=== PATIENT | female | born 1960 | race Caucasian/White ===

== ENCOUNTER 2020-08-21 06:56 | Outpatient (REF) | payer OTHER, SELFPAY ==
[2020-08-21 08:15] LABS: MANUAL DIFF FLAG NO
[2020-08-21 08:16] LABS: Basophils Percent Auto 0.6 % (0-2); Hemoglobin 12.8 g/dl (12.0-16.0); Imm Gran Abs Auto 0.01 X10*3/uL (0.00-0.03); Imm Gran Pct Auto 0.2 % (0.0-0.4); Lymphocytes Absolute Auto 2.3 X10*3/uL (1.2-4.9); Lymphocytes Percent Auto 44.9 % (20-40); Mean Corpuscular HGB Conc 31.2 g/dl (31.0-35.0); Mean Corpuscular Hemoglobin 26.2 pg (27.0-33.0); Mean Corpuscular Volume 83.8 fL (80-98); Mean Platelet Volume 10.9 fL (9.4-12.3); Monocytes Absolute Auto 0.3 X10*3/uL (0.1-1.2); Monocytes Percent Auto 5.7 % (2-11); Neutrophils Absolute Auto 2.5 X10*3/uL (2.0-8.3); Neutrophils Percent Auto 48.6 % (45-73); Platelet Count 329 X10*3/uL (160-400); Red Blood Count 4.89 X10*6/uL (4.20-5.50); Red Cell Distribution Width 15.2 % (11.0-16.0); White Blood Count 5.1 X10*3/uL (4.8-10.8)
[2020-08-21 09:04] LABS: Free T4 (Free Thyroxine) 1.22 ng/dL (0.71-1.85); Thyroid Stimulating Hormone 1.82 uIU/mL (0.32-4.0)
[2020-08-25 02:48] LABS: Thyroid Peroxidase Antibodies 5 IU/mL (<9)
== END 2020-08-21 06:57 | disposition home or self-care (01) ==
LOC: HO.LAB 06:56
PROVIDERS: PCP Internal Medicine; Visit Provider Internal Medicine
DX: E03.9 Hypothyroidism, unspecified (principal); G25.81 Restless legs syndrome; K50.10 Crohn's disease of large intestine without complications
CPT/HCPCS: 36415; 84439; 84443; 85025; 86376

== ENCOUNTER → 2020-08-28 11:18 | Outpatient (BNVA) | payer OTHER, SELFPAY | PROVIDERS: PCP Internal Medicine; Referring Provider Internal Medicine; Visit Provider Internal Medicine Gastroenterology | DX: Z76.89 Persons encountering health services in other specified circumstances (principal) ==

== ENCOUNTER 2020-11-04 09:48 | Outpatient (REF) | payer OTHER, SELFPAY ==
[2020-11-04 11:08] LABS: MANUAL DIFF FLAG NO
[2020-11-04 11:17] LABS: Basophils Percent Auto 0.4 % (0-2); Hematocrit 41.4 % (37-47); Hemoglobin 12.9 g/dl (12.0-16.0); Imm Gran Abs Auto 0.02 X10*3/uL (0.00-0.03); Imm Gran Pct Auto 0.4 % (0.0-0.4); Lymphocytes Absolute Auto 2.1 X10*3/uL (1.2-4.9); Lymphocytes Percent Auto 41.8 % (20-40); Mean Corpuscular HGB Conc 31.2 g/dl (31.0-35.0); Mean Corpuscular Hemoglobin 25.4 pg (27.0-33.0); Mean Corpuscular Volume 81.7 fL (80-98); Mean Platelet Volume 10.5 fL (9.4-12.3); Monocytes Absolute Auto 0.3 X10*3/uL (0.1-1.2); Monocytes Percent Auto 5.7 % (2-11); Neutrophils Absolute Auto 2.6 X10*3/uL (2.0-8.3); Neutrophils Percent Auto 51.7 % (45-73); Platelet Count 392 X10*3/uL (160-400); Red Blood Count 5.07 X10*6/uL (4.20-5.50); White Blood Count 5.1 X10*3/uL (4.8-10.8)
[2020-11-04 11:57] LABS: Alanine Aminotransferase 13 U/L (0-31); Albumin Level 3.8 g/dL (3.5-5.0); Alkaline Phosphatase 65 U/L (39-117); Anion Gap 13 (12-20); Aspartate Amino Transferase 14 U/L (5-31); Bilirubin Total 0.4 mg/dL (0.0-1.0); Blood Urea Nitrogen 14 mg/dL (9-16); Calcium 8.9 mg/dL (8.4-10.2); Carbon Dioxide 25 mmol/L (22-29); Chloride 105 mmol/L (96-108); Cholesterol 238 mg/dL; Estimated Glomerular Filt Rate > 60; Glucose Fasting 103 mg/dL (60-99); HDL Cholesterol 66 mg/dL; LDL Cholesterol Calculated 139 mg/dl; Potassium 4.3 mmol/L (3.3-5.1); Sodium 139 mmol/L (135-145); Total Protein 7.3 g/dL (6.5-8.0); Triglycerides 167 mg/dL
[2020-11-04 12:01] LABS: Free T4 (Free Thyroxine) 1.24 ng/dL (0.71-1.85); Thyroid Stimulating Hormone 0.66 uIU/mL (0.32-4.0); Vitamin D 25-OH Total 35.1 ng/mL (>30)
== END 2020-11-04 09:49 | disposition home or self-care (01) ==
LOC: HO.HMGCLDS 09:48
PROVIDERS: PCP Internal Medicine; Visit Provider Internal Medicine
DX: Z00.01 Encounter for general adult medical examination with abnormal findings (principal); E03.9 Hypothyroidism, unspecified; K21.9 Gastro-esophageal reflux disease without esophagitis; G25.81 Restless legs syndrome; K50.10 Crohn's disease of large intestine without complications; Z78.0 Asymptomatic menopausal state
CPT/HCPCS: 36415; 80053; 80061; 82306; 84439; 84443; 85025

== ENCOUNTER 2020-11-09 09:31 | Outpatient (REF) | payer OTHER, SELFPAY ==
[2020-11-12 03:07] LABS: HPV mRNA E6/E7 rflx Not Detected (Not Detected)
== END 2020-11-09 09:32 | disposition home or self-care (01) ==
LOC: HO.LAB 09:31
PROVIDERS: PCP Internal Medicine; Visit Provider Obstetrics & Gynecology
DX: Z01.419 Encounter for gynecological examination (general) (routine) without abnormal findings (principal); Z11.51 Encounter for screening for human papillomavirus (HPV)
CPT/HCPCS: 36415; 87624; 88142

== ENCOUNTER 2020-12-24 11:03 | Outpatient (REF) | payer OTHER, SELFPAY ==
[2020-12-24 11:57] LABS: MANUAL DIFF FLAG NO
[2020-12-24 12:02] LABS: Basophils Percent Auto 0.4 % (0-2); Eosinophils Percent Auto 0.1 % (0-4); Hematocrit 39.5 % (37-47); Hemoglobin 12.1 g/dl (12.0-16.0); Imm Gran Abs Auto 0.01 X10*3/uL (0.00-0.03); Imm Gran Pct Auto 0.1 % (0.0-0.4); Lymphocytes Absolute Auto 2.5 X10*3/uL (1.2-4.9); Lymphocytes Percent Auto 36.2 % (20-40); Mean Corpuscular HGB Conc 30.6 g/dl (31.0-35.0); Mean Corpuscular Hemoglobin 25.4 pg (27.0-33.0); Mean Corpuscular Volume 82.8 fL (80-98); Mean Platelet Volume 10.2 fL (9.4-12.3); Monocytes Absolute Auto 0.4 X10*3/uL (0.1-1.2); Neutrophils Absolute Auto 3.9 X10*3/uL (2.0-8.3); Neutrophils Percent Auto 57.2 % (45-73); Platelet Count 360 X10*3/uL (160-400); Red Blood Count 4.77 X10*6/uL (4.20-5.50); Red Cell Distribution Width 16.2 % (11.0-16.0); White Blood Count 6.8 X10*3/uL (4.8-10.8)
[2020-12-24 12:30] LABS: Alanine Aminotransferase 11 U/L (0-31); Albumin Level 3.8 g/dL (3.5-5.0); Alkaline Phosphatase 65 U/L (39-117); Anion Gap 14 (12-20); Aspartate Amino Transferase 11 U/L (5-31); Bilirubin Total 0.3 mg/dL (0.0-1.0); Blood Urea Nitrogen 20 mg/dL (9-16); C Reactive Protein 1.09 mg/dL (< or = 0.50); Calcium 8.6 mg/dL (8.4-10.2); Carbon Dioxide 25 mmol/L (22-29); Chloride 105 mmol/L (96-108); Estimated Glomerular Filt Rate > 60; Glucose Random 80 mg/dL (60-115); Potassium 4.1 mmol/L (3.3-5.1); Sodium 140 mmol/L (135-145); Total Protein 7.1 g/dL (6.5-8.0)
[2020-12-24 12:56] LABS: Vitamin D 25-OH Total 28.5 ng/mL (>30)
== END 2020-12-24 11:04 | disposition home or self-care (01) ==
LOC: HO.LAB 11:03
PROVIDERS: PCP Internal Medicine; Visit Provider Internal Medicine Gastroenterology
DX: K50.10 Crohn's disease of large intestine without complications (principal)
CPT/HCPCS: 36415; 80053; 82306; 85025; 86140

== ENCOUNTER → 2020-12-28 13:15 | Outpatient (BNVA) | payer OTHER, SELFPAY | PROVIDERS: PCP Internal Medicine; Visit Provider Internal Medicine Gastroenterology ==

== ENCOUNTER 2021-01-05 10:43 | Outpatient (REF) | payer OTHER, SELFPAY ==
--- NOTE | ~2021-01-05 | MM_ITS ---
EXAMINATION: MM SCREENING DIGITAL BREAST TOMOSYNTHESIS, BILATERAL CLINICAL INFORMATION: Screening. Asymptomatic. The lifetime risk of breast cancer based on the Tyrer-Cuzick Model is 9%. COMPARISON: Outside mammography: 10/27/2017, 10/24/2016, 05/26/2014 ([facility]). TECHNIQUE: Digital breast tomosynthesis is performed in both the craniocaudal and mediolateral oblique views along with computer-aided detection (CAD). Synthesized 2D images are generated from the tomosynthesis. Additional right CC and left cleavage view are provided. FINDINGS: There are scattered areas of fibroglandular density (ACR BI-RADS breast composition Category b). There are no significant masses, abnormal calcifications, or other abnormalities. Parenchymal pattern is similar to the outside exams. No developing density. There are scattered benign round and vascular calcifications and early ductal secretory calcification posterior central left breast. No significant changes. MM/MM tomosynthesis screening BI IMPRESSION: No significant changes from prior studies. ASSESSMENT: BI-RADS 2: Benign RECOMMENDATION: Routine annual mammography screening. This patient's information was entered into a reminder system with a target due date for their next mammogram.
--- NOTE | ~2021-01-05 | MM_ITS ---
EXAMINATION: BONE DENSITOMETRY CLINICAL INDICATION: Asymptomatic menopausal state. COMPARISON: None (current study represents initial baseline exam). TECHNIQUE: Using a [employer] DXA System (software version: 13.1) manufactured by [employer], dual-energy x-ray absorptiometry was performed of the lumbar spine and left hip. The images are of good technical quality. Summary results are attached. FINDINGS: AP SPINE L1-L4: BMD 0.871 g/cm2, Z-score -2.2, T-score -2.6, osteoporosis. LEFT FEMUR, NECK: BMD 0.738 g/cm2, Z-score -1.5, T-score -2.2, osteopenia. LEFT FEMUR, TOTAL: BMD 0.779 g/cm2, Z-score -1.5, T-score -1.8, osteopenia. IDENTIFIED RISK FACTORS: Secondary osteoporosis, history of fracture (adult), menopause. HISTORY OF FRACTURE: Elbow, wrist. MEDICATIONS: Calcium supplements or multivitamin, vitamin D. MM/XR DEXA axial skeleton IMPRESSION: 1. DIAGNOSIS: Osteoporosis based on the lowest T-score value of -2.6 in the spine applying World Health Organization criteria. 2. 10-YEAR FRACTURE RISK PREDICTION, FRAX: Major osteoporotic fracture (clinical spine, forearm, hip or shoulder) 15.9%. Hip fracture 2.3%. 3. Treatment Recommendations: NOF guidelines recommend consideration for treatment in postmenopausal women and men age 50 and older presenting with the following: -A hip or vertebral (clinical or morphometric) fracture. -T-score less than or equal to -2.5 at the femoral neck or spine after appropriate evaluation to exclude secondary causes. -Low bone mass at the hip or spine and a 10-year fracture probability by FRAX of greater than or equal to 3% for hip fracture or greater than or equal to 20% for major osteoporotic fracture based on the [place] adapted WHO algorithm. 4. Other Recommendations: All treatment decisions require clinical judgment and consideration of individual patient factors, including patient preferences, comorbidities, previous drug use, risk factors not captured in the FRAX model (e.g. frailty, falls, vitamin D deficiency, increased bone turnover, interval significant decline in bone density) and possible under or overestimation of fracture risk by FRAX. Additional medical evaluation for secondary cause of low bone mineral density may be appropriate. FUTURE SCAN RECOMMENDATION: People with diagnosed cases of osteoporosis or at high risk for fracture should have regular bone mineral density tests. For patients eligible for Medicare, routine testing is allowed once every 2 years. The testing frequency can be increased to one year for patients who have rapidly progressing disease, those who are receiving or discontinuing medical therapy to restore bone mass, or have additional risk factors.
== END 2021-01-05 10:44 | disposition home or self-care (01) ==
LOC: HO.MAMMO 10:43
PROVIDERS: PCP Internal Medicine; Visit Provider Internal Medicine
DX: Z12.31 Encounter for screening mammogram for malignant neoplasm of breast (principal); Z13.820 Encounter for screening for osteoporosis; M81.0 Age-related osteoporosis without current pathological fracture; Z78.0 Asymptomatic menopausal state; Z87.81 Personal history of (healed) traumatic fracture; Z79.899 Other long term (current) drug therapy
CPT/HCPCS: 77063; 77067; 77080

== ENCOUNTER 2021-03-15 13:47 | Outpatient (REF) | payer OTHER, SELFPAY ==
[2021-03-15 15:58] LABS: Alanine Aminotransferase 9 U/L (0-31); Albumin Level 3.7 g/dL (3.5-5.0); Alkaline Phosphatase 64 U/L (39-117); Anion Gap 13 (12-20); Aspartate Amino Transferase 15 U/L (5-31); Bilirubin Total < 0.2 mg/dL (0.0-1.0); Blood Urea Nitrogen 14 mg/dL (9-16); Calcium 8.7 mg/dL (8.4-10.2); Carbon Dioxide 21 mmol/L (22-29); Chloride 108 mmol/L (96-108); Estimated Glomerular Filt Rate > 60; Glucose Random 114 mg/dL (60-115); Phosphorus 4.1 mg/dL (2.7-4.5); Potassium 4.4 mmol/L (3.3-5.1); Sodium 138 mmol/L (135-145); Total Protein 6.9 g/dL (6.5-8.0)
[2021-03-15 16:16] LABS: Thyroid Stimulating Hormone 0.77 uIU/mL (0.32-4.0); Vitamin D 25-OH Total 39.4 ng/mL (>30)
[2021-03-16 09:41] LABS: Thyroglobulin Antibodies 1 IU/mL (< or = 1); Thyroid Peroxidase Antibodies 5 IU/mL (<9)
[2021-03-16 13:16] LABS: PTHI 96 pg/mL (14-64)
[2021-03-16 14:32] LABS: Prot Elec - Albumin 3.5 g/dL (3.8-4.8); Prot Elec - Alpha1 0.4 g/dL (0.2-0.3); Prot Elec - Alpha2 0.9 g/dL (0.5-0.9); Prot Elec - Beta 1 0.5 g/dL (0.4-0.6); Prot Elec - Beta 2 0.5 g/dL (0.2-0.5); Prot Elec - Gamma 1.1 g/dL (0.8-1.7); Prot Elec - Total Protein 6.9 g/dL (6.1-8.1)
== END 2021-03-15 13:48 | disposition home or self-care (01) ==
LOC: HO.LAB 13:47
PROVIDERS: PCP Internal Medicine; Visit Provider Internal Medicine
DX: M81.0 Age-related osteoporosis without current pathological fracture (principal); E03.9 Hypothyroidism, unspecified; E55.9 Vitamin D deficiency, unspecified
CPT/HCPCS: 36415; 80053; 82306; 82330; 83970; 84100; 84155; 84165; 84439; 84443; 86376; 86800; 99202

== ENCOUNTER 2021-03-17 12:00 | Outpatient (REF) | payer OTHER, SELFPAY ==
[2021-03-17 14:20] LABS: Creatinine, mg/dL 87.12
[2021-03-17 14:36] LABS: Total Volume 24 Hour Urine 1150 mL
[2021-03-18 18:56] LABS: Calcium, 24 Hr Urine 141 mg/24 h; Calcium/Creatinine Ratio 143 mg/g creat (30-275); Creatinine 24Hr Urine 0.99 g/24 h (0.50-2.15)
[2021-03-21 16:27] LABS: N-Telopeptide 38 (see note); NTXCreaRU 42 mg/dL (20-275)
== END 2021-03-17 12:01 | disposition home or self-care (01) ==
LOC: HO.LNP 12:00
PROVIDERS: Visit Provider Internal Medicine
DX: M81.0 Age-related osteoporosis without current pathological fracture (principal); E03.9 Hypothyroidism, unspecified
CPT/HCPCS: 82340; 82523; 82570

== ENCOUNTER 2021-04-01 10:07 | Outpatient (REF) | payer OTHER, SELFPAY ==
--- NOTE | ~2021-04-01 | US_ITS ---
EXAMINATION: US THYROID CLINICAL INFORMATION: Hypothyroidism, unspecified. COMPARISON: None TECHNIQUE: Linear transducer edmondson-scale and color Doppler examination with attention to the region of the thyroid. FINDINGS: SIZE: Measurements of the thyroid lobes and nodules are given in sagittal, anteroposterior and transverse dimensions respectively. Right Thyroid Lobe: 3.5 x 1.3 x 1.0 cm, volume 2.4 mL. Parenchyma: The gland echotexture is heterogeneous. Thyroid vascularity is normal. Left Thyroid Lobe: 4.0 x 1.0 x 1.0 cm, volume 2.1 mL. Parenchyma: The gland echotexture is heterogeneous. Thyroid vascularity is normal. Isthmus: 0.1 cm in maximum AP dimension. No focal thyroid nodule is seen. NODES: Left level 4 lymph node measuring 1.9 x 0.8 x 1.0 cm with normal architecture. US/US thyroid IMPRESSION: Slightly atrophic and heterogeneous thyroid with normal vascularity. Findings could represent the sequela of a prior infectious or inflammatory process. No thyroid nodule. Mildly prominent left level 4 lymph node measuring up to 1.9 cm. ACR TI-RADS RECOMMENDATION REFERENCE: Ultrasound-guided fine-needle aspiration, followup ultrasound, no further followup. * TR1 (0 point) and TR 2 (2 points): No FNA or followup. * TR3 (3 points): FNA if more than or equal to 2.5 cm in maximum dimension, followup ultrasound in 1, 3 and 5 years if 1.5 to 2.4 cm in maximum dimension. * TR4 (4-6 points): FNA if more than or equal to 1.5 cm in maximum dimension, followup ultrasound in 1, 2, 3 and 5 years if 1 to 1.4 cm in maximum dimension. * TR5 (more than or equal to 7 points): FNA if more than or equal to 1 cm in maximum dimension, followup ultrasound every year for 5 years if 0.5 to 0.9 cm in maximum dimension. * TR3, TR4 or TR5 nodules that are below the size threshold for followup receive no followup.
== END 2021-04-01 10:08 | disposition home or self-care (01) ==
LOC: HO.HMGCX 10:07
PROVIDERS: PCP Internal Medicine; Visit Provider Internal Medicine
DX: E03.9 Hypothyroidism, unspecified (principal)
CPT/HCPCS: 76536

== ENCOUNTER → 2021-05-20 10:06 | Outpatient (BNVA) | payer OTHER, SELFPAY | PROVIDERS: PCP Internal Medicine; Referring Provider Internal Medicine; Visit Provider Internal Medicine Gastroenterology | DX: K50.119 Crohn's disease of large intestine with unspecified complications (principal); K21.9 Gastro-esophageal reflux disease without esophagitis | CPT/HCPCS: 99212 ==

== ENCOUNTER → 2021-06-21 12:05 | Outpatient (BNVA) | payer OTHER, SELFPAY | PROVIDERS: PCP Internal Medicine; Visit Provider Internal Medicine ==

== ENCOUNTER 2021-06-28 13:05 | Outpatient (REF) | payer OTHER, SELFPAY ==
[2021-06-28 14:26] LABS: Alanine Aminotransferase 14 U/L (0-31); Albumin Level 3.8 g/dL (3.5-5.0); Alkaline Phosphatase 62 U/L (39-117); Anion Gap 14 (12-20); Aspartate Amino Transferase 11 U/L (5-31); Bilirubin Total 0.3 mg/dL (0.0-1.0); Blood Urea Nitrogen 11 mg/dL (9-16); Calcium 9.2 mg/dL (8.4-10.2); Carbon Dioxide 23 mmol/L (22-29); Chloride 106 mmol/L (96-108); Estimated Glomerular Filt Rate 55; Glucose Random 120 mg/dL (60-115); Phosphorus 4.2 mg/dL (2.7-4.5); Potassium 4.3 mmol/L (3.3-5.1); Sodium 139 mmol/L (135-145); Total Protein 7.1 g/dL (6.5-8.0)
[2021-06-28 14:46] LABS: Vitamin D 25-OH Total 26.8 ng/mL (>30)
[2021-06-30 15:51] LABS: Calcium (PTHI) 9.1 mg/dL (8.6-10.4); PTHI 61 pg/mL (14-64)
== END 2021-06-28 13:06 | disposition home or self-care (01) ==
LOC: HO.LAB 13:05
PROVIDERS: Internal Medicine Gastroenterology; PCP Internal Medicine; Visit Provider Internal Medicine
DX: K21.9 Gastro-esophageal reflux disease without esophagitis (principal); K50.119 Crohn's disease of large intestine with unspecified complications; E21.3 Hyperparathyroidism, unspecified; E55.9 Vitamin D deficiency, unspecified
CPT/HCPCS: 36415; 80053; 82306; 83970; 84100; 85025

== ENCOUNTER 2021-07-02 09:41 | Day surgery (SDC) | payer OTHER, SELFPAY ==
[2021-06-25 13:54] VITALS: BMI 32.2
--- NOTE | 2021-07-01 10:29 | P.CONAN_ITS ---
Documented by User: Elizabeth Pereyra NP 07/01/21 10:30 HPI - Anesthesia Eval Consult details Narrative: 60yo F for Colonoscopy PMFSH Active Problems Active Problems: All Active Problems (Updated 06/21/21 @ 15:21 by Mala Garcia DO) Hyperparathyroidism (Acute) Overactive bladder (Acute) Upper back pain, chronic (Acute) Large breasts (Acute) Vitamin D deficiency (Acute) Hypothyroidism (Acute) Osteoporosis (Acute) Well woman exam (Acute) Postmenopause (Acute) Breast cancer screening other than mammogram (Acute) GERD (gastroesophageal reflux disease) (Acute) Acquired hypothyroidism (Acute) RLS (restless legs syndrome) (Acute) Crohn's colitis (Acute) Past Medical History Medical History (Updated 06/21/21 @ 15:21 by Mala Garcia DO) Acquired hypothyroidism Breast cancer screening other than mammogram Crohn's colitis GERD (gastroesophageal reflux disease) History of shingles Hx of drainage of abscess Hyperparathyroidism Hypothyroidism Large breasts Osteoporosis Overactive bladder Postmenopause RLS (restless legs syndrome) Upper back pain, chronic Vitamin D deficiency Family History Family History Father Lung cancer Mother Diabetes Hypertension Sister No problems noted. Surgical History Surgical History H/O partial resection of colon History of appendectomy History of esophagogastroduodenoscopy Hx of cholecystectomy Hx of colonoscopy Hx of tonsillectomy Social History Social History Household Members: Family Housing: Apartment Are you a primary interior plant caretaker to a significant other at home: No Do you presently have visiting nurse or other home services: No Alcohol intake: current Alcohol intake frequency: does not drink Patient Tobacco Use Status: Never used Tobacco e-Cigarette/Vaping Use: Never Used Second Hand Smoke Exposure: No Use of substances other than those prescribed or required for medical reasons: No Have you been hit, kicked, punched, or otherwise hurt by someone within the past year? If so, by whom?: No Are you DNR?: No Advance Directives: No Advance Directives Information Provided: No Advance Directives on File: No Recently lost weight without trying: No Eating poorly because of decreased appetite: No Nutrition Risks: No Nutritional Risk Patient : No service: No Current occupational status: employed Current occupation: [employer] Meds Allergies Allergy/AdvReac Type Severity Reaction Status Date / Time No Known Allergies Allergy Verified 06/21/21 15:05 [No Known Allergies*] Home Medications Medication Instructions Recorded Confirmed Last Taken Type levothyroxine 100 mcg tablet 100 mcg PO DAILY 07/21/20 06/25/21 07/02/21 History sennosides 8.6 mg tablet 17.2 mg PO BID PRN 07/21/20 06/25/21 Unknown History trospium 60 mg capsule,extended 60 mg PO DAILY 07/21/20 06/25/21 Unknown History release 24 hr mirtazapine 7.5 mg tablet 7.5 mg PO BEDTIME PRN 03/15/21 06/25/21 Unknown History Exam Exam Date and Time: July 01, 2021 1029 Height,Weight and Vital Signs: Height 5 ft 4 in Weight 85.275 kg Pertinent Lab Results Pertinent Lab Results: Laboratory Tests 06/28/21 13:22 Sodium 139 Potassium 4.3 Chloride 106 Carbon Dioxide 23 BUN 11 Creatinine 1.03 Assessment and Plan Assessment Anesthesia Assessment: Chart Reviewed Documented by User: Kate Perez MD 07/02/21 09:53 [facility] Past Medical History Medical History (Updated 06/21/21 @ 15:21 by Mala Garcia DO) Acquired hypothyroidism Breast cancer screening other than mammogram Crohn's colitis GERD (gastroesophageal reflux disease) History of shingles Hx of drainage of abscess Hyperparathyroidism Hypothyroidism Large breasts Osteoporosis Overactive bladder Postmenopause RLS (restless legs syndrome) Upper back pain, chronic Vitamin D deficiency Family History Family History Father Lung cancer Mother Diabetes Hypertension Sister No problems noted. Family history of problems with anesthesia: No Surgical History Surgical History H/O partial resection of colon History of appendectomy History of esophagogastroduodenoscopy Hx of cholecystectomy Hx of colonoscopy Hx of tonsillectomy History of Problems with Anesthesia: No Social History Social History Household Members: Family Housing: Apartment Are you a primary interior plant caretaker to a significant other at home: No Do you presently have visiting nurse or other home services: No Alcohol intake: current Alcohol intake frequency: does not drink Patient Tobacco Use Status: Never used Tobacco e-Cigarette/Vaping Use: Never Used Second Hand Smoke Exposure: No Use of substances other than those prescribed or required for medical reasons: No Have you been hit, kicked, punched, or otherwise hurt by someone within the past year? If so, by whom?: No Are you DNR?: No Advance Directives: No Advance Directives Information Provided: No Advance Directives on File: No Recently lost weight without trying: No Eating poorly because of decreased appetite: No Nutrition Risks: No Nutritional Risk Patient : No service: No Current occupational status: employed Current occupation: [employer] Allergies Allergy/AdvReac Type Severity Reaction Status Date / Time No Known Allergies Allergy Verified 06/21/21 15:05 [No Known Allergies*] Home Medications Medication Instructions Recorded Confirmed Last Taken Type levothyroxine 100 mcg tablet 100 mcg PO DAILY 07/21/20 06/25/21 07/02/21 History sennosides 8.6 mg tablet 17.2 mg PO BID PRN 07/21/20 06/25/21 Unknown History trospium 60 mg capsule,extended 60 mg PO DAILY 07/21/20 06/25/21 Unknown History release 24 hr mirtazapine 7.5 mg tablet 7.5 mg PO BEDTIME PRN 03/15/21 06/25/21 Unknown History Exam Airway Mallampati Class: II TM Dist: >3cm Neck ROM: Full Heart: rrr Lungs: cta Assessment and Plan Assessment Anesthesia Assessment: Anesthesia Plan Discussed and Chart Reviewed Final Anesthetic Review Family History of Problems with Anesthesia: No History of Problems with Anesthesia: No NPO: Yes ASA Class: II Final Preanesthetic Review: No Changes in Pt Med Stat, Meds/Allgs Chart Reviewed and Consent Obtained/Reviewed Patient Risk: Intermediate Procedure Risk: Intermediate Anesthetic Plan Anesthetic Plan: MAC: Disposition: Standard PACU
[2021-07-02 09:44] VITALS: BP 123/67; PULSE 78; RESP 18; TEMP 36.6; O2SAT 98
--- NOTE | 2021-07-02 09:50 | MHC.SHP ---
Pre-Procedural Eval Section A Date of Service: 07/02/21 The patient is an INPATIENT: No The History & Physical has been completed within 30 days and I have reviewed it.: No Section B Chief Complaint: crohn's disease of intestine Details of Present Illness: Colon cancer screening, crohn's disease Relevant Family History (Specify if Yes): No Relevant Social History: None Present Medications: see Short Stay Collaborative assessment Medical History: Significant History (Acquired hypothyroidism Breast cancer screening other than mammogram Crohn's colitis GERD (gastroesophageal reflux disease) History of shingles Hx of drainage of abscess Hypothyroidism Large breasts Osteoporosis Overactive bladder Postmenopause RLS (restless legs syndrome) Upper back pain, chronic V) History of Previous Operations: Relevant previous surgery/procedure and date(s) (H/O partial resection of colon History of appendectomy History of esophagogastroduodenoscopy Hx of cholecystectomy Hx of colonoscopy Hx of tonsillectomy) Allergies: Allergies Allergy/AdvReac Type Severity Reaction Status Date / Time No Known Allergies Allergy Verified 06/21/21 15:05 [No Known Allergies*] Review of Systems Sugical H&P ROS: Negative: Constitution, Cardiovascular, Respiratory and Gastrointestinal Exam Surgical H&P Exam: Normal: Heart, Normal: Lungs, Normal: Extremities and Normal: Abdomen Plan Diagnosis/Plan: Unchanged I have reviewed the history and physical and performed a pertinent physical examination on my patient. No changes have occurred unless specified.
--- NOTE | 2021-07-02 09:52 | W.PM.OPN ---
Operative Note Operative Note Date of Service: 07/02/21 Narrative: Pre-op diagnosis:?Colon cancer screening, Crohn's disease Post-op diagnosis:?other (Crohn's disease, TI ulcers.) Procedure:? FLEXIBLE SIGMOIDOSCOPY WITH BIOPSIES Consent: Indications for the procedure and potential complications of bleeding, perforation, reaction to medications and missed diagnosis were discussed with the patient and informed consent was obtained. Instrument: Olympus PCF H 190 L variable stiffness pediatric colonoscope Monitoring: Vital signs and clinical assessment, intermittent blood pressure monitoring, continuous EKG monitoring, Pulse oximetry and Carbon Dioxide monitoring were done throughout the procedure. Colon withdrawl time was 10 minutes. Procedure: The patient was placed in the left lateral decubitis position and pre-procedure medications were administered. After a digital rectal examination of the ano-rectum, the video colonoscope was inserted into the rectum and advanced through the colon to the ileo-colic anastomosis at 30 cms. Distal small bowel was examined.? The colonoscope was slowly withdrawn in a retrograde panoramic fashion and the colon mucosa was carefully examined including a retroflexed view of the rectum. Findings and interventions are described below. Procedure Difficulty: Without difficulty Findings: Terminal Ileum: Distal 10 cms was examined - multiple 1-2 cms ulcers just proximal to the ileo-colic anastomosis - multiple biopsies were obtained.? Distal 2-4 cms of the TI was ulcerated and normal mucosa proximally. Sigmoid Colon:? Decreased vascularity due to inactive Crohn's disease in the colon - surveillance biopsies were obtained. Rectum:? Normal Ano-rectum:? Hypertrophied anal papillae Colon preparation: Excellent ? Impression and Post Procedure Diagnosis: Colonoscopy Findings: Focal 2-4 cms area of ulcerations just proximal to the ileo-colic anastomosis - multiple biopsies were obtained.? Normal small bowel mucosa proximally. No polyps were detected. Decreased vascularity due to inactive Crohn's disease in the colon - surveillance biopsies were obtained. Plan: Await pathology results Patient has an appointment on 07/22/2021 in the [facility] with Chelsie Navas M.D.. Repeat Colonoscopy interval based on path results - in 2 years if no dysplasia on colon biopsies. Above findings were reviewed with the patient? and Crohn's disease handout was given in the discharge area Surgeon:?Chelsie Navas MD Anesthesia:?MAC (Dr Shafer) Was an An/Syq 13 Nav/C2 Operator used for this Procedure?:?Yes An/Syq 13 Nav/C2 Operator:?Niyah Hwang Estimated blood loss (mL):?0 Pathology:?other (A. small bowel at terminal ileum (ulcer)? B. colon at 25 cm, R/O dysplasia? C. colon at 15 cm, R/O dysplasia? D. colon at 5 cm, R/O dysplasia) Condition:?stable Disposition:?PACU
[2021-07-02] MEDS: Lactated Ringers 1,000 ML 100 ML IVCONT (10:02)
[2021-07-02 10:46] VITALS: BP 81/39; PULSE 69; RESP 16; TEMP 36.4; O2SAT 93
[2021-07-02 11:01] VITALS: BP 104/60; PULSE 69; RESP 16; TEMP 36.4; O2SAT 96
== END 2021-07-02 12:08 | disposition home or self-care (01) ==
PROVIDERS: PCP Internal Medicine; Visit Provider Internal Medicine Gastroenterology
PROC: 0DJD8ZZ Inspection of Lower Intestinal Tract, Via Natural or Artificial Opening Endoscopic (ICD-10-PCS; CPT 45378; principal; 2021-07-02 11:00)
DX: Z12.11 Encounter for screening for malignant neoplasm of colon (principal); K50.10 Crohn's disease of large intestine without complications; K63.3 Ulcer of intestine; K62.89 Other specified diseases of anus and rectum; Z90.49 Acquired absence of other specified parts of digestive tract; Z98.0 Intestinal bypass and anastomosis status; K21.9 Gastro-esophageal reflux disease without esophagitis; Z79.899 Other long term (current) drug therapy
CPT/HCPCS: 45331; 88305; J2250

== ENCOUNTER 2021-07-04 10:36 | Inpatient (IN) | payer OTHER, SELFPAY ==
--- NOTE | ~2021-07-04 | CT_ITS ---
EXAMINATION: CT ABDOMEN AND PELVIS WITH CONTRAST CLINICAL INFORMATION: Abdominal pain. Status post colonoscopy 3 days ago. History of subtotal colectomy. History of Crohn's disease. COMPARISON: CT of the abdomen and pelvis done on 06/01/2019. TECHNIQUE: Multidetector volumetric images were obtained from the superior aspect of the liver through the pubic symphysis following administration 85 mL of Omnipaque 350 intravenous contrast. Sagittal and coronal reformatted images were obtained on the technologist's workstation. Oral contrast: No This CT examination was performed using dose optimization techniques as appropriate, variously including the following: *Automated exposure control *Adjustment of mA and/or kV according to patient size (this includes techniques or standardized protocols for targeted exams where dose is matched to indication/reason for exam; i.e. extremities or head) *Use of iterative reconstruction technique DLP: 717 mGy-cm FINDINGS: LUNG BASES: The visualized lung bases are unremarkable. LIVER, GALLBLADDER, AND BILIARY TREE: The liver is normal in size, shape, and attenuation. No focal hepatic lesion or biliary ductal dilatation is present. The gallbladder is surgically absent. PANCREAS: Unremarkable. SPLEEN: Unremarkable. ADRENAL GLANDS: Unremarkable. KIDNEYS AND URETERS: The left kidney is normal in size, shape, and attenuation. No hydronephrosis, hydroureter, or calculi seen. No perinephric stranding. 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 BLADDER: Unremarkable. GASTROINTESTINAL TRACT: Postsurgical changes of subtotal colectomy is noted. The stomach as well as the small bowel loops are not dilated with few of the small bowel loops appear decompressed within the central mid abdomen. The degree of bowel distention and air-fluid level appears similar to prior study dated 06/01/2019. Previously documented extensive fecal residual within the right-sided bowel appear improved. No evidence of any definite zone of transition. No evidence of any interloop abscess, fistula formation or new abnormalities. ABDOMINAL WALL: No significant hernia is appreciated. LYMPH NODES: Normal. VASCULAR: Unremarkable. PELVIC VISCERA: There is no pelvic mass present. No evidence of any free fluid and/or free air present. OSSEOUS STRUCTURES: No suspicious focal lesion. Evidence of presacral mural stimulators is seen on the right with intact hardware, unchanged. CT/CT abdomen pelvis w con IMPRESSION: Postsurgical changes of subtotal colectomy and multiple dilated small and large bowel loops, appear similar to prior study dated 06/01/2019. No evidence of any free intraperitoneal air.
--- NOTE | ~2021-07-04 | XR_ITS ---
EXAMINATION: XR CHEST CLINICAL INFORMATION: Status post NG tube insertion. COMPARISON: Chest radiograph done on 05/31/2018. TECHNIQUE: Frontal view of the chest was obtained. FINDINGS: The tip of the enteric tube is projecting within the proximal part of the fundus with proximal sidehole also localized to the fundus, below the level of the diaphragm. Both lung vázquez are clear. Distended bowel loops are noted within the right upper quadrant of the abdomen. Postsurgical changes are noted within the left lower neck and left superior mediastinum. Overall, no significant change. XR/XR chest 1V IMPRESSION: The tip of the NG tube and proximal most sidehole appear below the diaphragm within the fundus of the stomach. Bilateral clear lungs.
--- NOTE | ~2021-07-04 | XR_ITS ---
EXAMINATION: XR ABDOMEN KUB CLINICAL INDICATION: Follow up for partial small bowel obstruction COMPARISON: Previous KUB from yesterday and previous CT of the abdomen and pelvis 07/04/2021 TECHNIQUE: AP view of the abdomen. FINDINGS: There are still dilated loops of small bowel similar to previous exams. Findings are again suggestive of small bowel obstruction. There is no evidence of free air. There is a nasogastric tube in the stomach. There is a right sacral stimulator. There is mild arthritis at the hip joints and soft tissue calcification adjacent to the left greater trochanter. XR/XR KUB IMPRESSION: No change in small bowel dilatation suggestive of small bowel obstruction.
--- NOTE | ~2021-07-04 | XR_ITS ---
EXAMINATION: XR ABDOMEN KUB CLINICAL INDICATION: Follow-up partial small bowel obstruction. COMPARISON: CT abdomen from 07/04/2021. TECHNIQUE: AP view of the abdomen. XR/XR KUB FINDINGS AND IMPRESSION: The tip of the enteric tube is located within the proximal stomach. Cholecystectomy clips in the right upper quadrant. There is no significant interval improvement. Again noted is diffuse gaseous distention of bowel in the abdomen and pelvis. The pattern is suggestive of a distal bowel obstruction. The overall degree and extent of bowel dilatation is not significantly changed compared to 07/04/2021. No evidence of pneumatosis intestinalis, pneumoperitoneum or other significant change.
--- NOTE | ~2021-07-04 | XR_ITS ---
EXAMINATION: XR ABDOMEN KUB CLINICAL INDICATION: Bowel obstruction. COMPARISON: CT abdomen and pelvis of 07/09/2021, KUB of 07/08/2021, 07/07/2021. TECHNIQUE: AP view of the abdomen. FINDINGS: There is mild diffuse gaseous distention of the bowel loops; ileus is favored over obstruction. Oral contrast is noted in the rectosigmoid colon. A neurostimulator device with wire coursing towards the right sacral region is noted projecting over the right lower abdomen/pelvis. No abnormal radiopaque densities are noted. Surgical clips in the right upper abdominal quadrant from prior cholecystectomy. XR/XR KUB IMPRESSION: Mild gaseous distention of multiple bowel loops; ileus is favored over bowel obstruction. There might be mild increased gaseous distention of the small-bowel loops in the left hemiabdomen.
--- NOTE | ~2021-07-04 | CT_ITS ---
EXAMINATION: CT ABDOMEN AND PELVIS WITH CONTRAST CLINICAL INFORMATION: Follow-up partial small bowel obstruction COMPARISON: CT scan 07/04/2021. Abdominal radiographs 07/08/2021 and 07/07/2021 TECHNIQUE: Multidetector volumetric images were obtained from the superior aspect of the liver through the pubic symphysis following administration 85 mL of Omnipaque 350 intravenous contrast. Sagittal and coronal reformatted images were obtained on the technologist's workstation. Oral contrast: No This CT examination was performed using dose optimization techniques as appropriate, variously including the following: *Automated exposure control *Adjustment of mA and/or kV according to patient size (this includes techniques or standardized protocols for targeted exams where dose is matched to indication/reason for exam; i.e. extremities or head) *Use of iterative reconstruction technique DLP: 544 mGy-cm FINDINGS: LUNG BASES: The visualized lung bases are unremarkable. LIVER, GALLBLADDER, AND BILIARY TREE: The liver is normal in size, shape, and attenuation. No focal hepatic lesion or biliary ductal dilatation is present. Status post cholecystectomy. No biliary ductal dilatation. PANCREAS: Normal. SPLEEN: Normal size. No focal lesion. ADRENAL GLANDS: Unremarkable. KIDNEYS AND URETERS: Malrotated right pelvic kidney. Normal-appearing left kidney. BLADDER: Unremarkable. GASTROINTESTINAL TRACT: There is an territory tube that descends the esophagus and loops in the stomach. There is oral contrast in the stomach and small bowel extending as far distally as the pelvis. Again seen are a few loops of dilated small bowel in the left pelvis, measuring up to 3.5 cm in diameter. These are improved from the prior study at which time it measured nearly 5 cm in diameter. There is evidence of prior partial colectomy. There continues to be gaseous distention of colon positioned anterior to the liver although this is improved as well. The sigmoid colon is now collapsed and extends towards the right lower quadrant of the abdomen. This appears somewhat tethered but there is no twisting or swirling of the mesentery to suggest a volvulus. Some of the loops of bowel are collapsed with corresponding wall thickening. There is a suggestion of abnormal wall thickening of the small bowel loop in the right pelvis, for example image 73/97 although this could represent incompletely mixing of liquid stool and enteral contrast. No definite sites of abnormal wall thickening to suggest active site of inflammation. ABDOMINAL WALL: There is diastases of the rectus abdominis with several small fat-containing hernias. There is gas from subcutaneous injections in the left anterior abdominal fat. LYMPH NODES: Normal. VASCULAR: Unremarkable. PELVIC VISCERA: The uterus and adnexa are unremarkable. OSSEOUS STRUCTURES: Right-sided sacral stimulator. No acute or suspicious osseous abnormality. Facet arthropathy of the lower lumbar spine. CT/CT abdomen pelvis w con IMPRESSION: Improved but not entirely resolved abnormal dilation of the distal small bowel and colon status post partial colectomy. The findings are consistent with a resolving ileus or partial obstruction. Consider continued follow-up with abdominal radiographs.
[2021-07-04 10:43] VITALS: BP 94/78; PULSE 89; RESP 18; TEMP 36.4; O2SAT 97; BMI 39.8
--- NOTE | 2021-07-04 11:01 | ED_ITS ---
HPI - Abdominal Pain General Chief Complaint: Abdominal Pain Stated Complaint: heartburn abd pain colitis Time Seen by Provider: 07/04/21 10:55 Source: patient Mode of arrival: ambulatory Limitations: no limitations History of Present Illness HPI narrative: 60-year-old female presents to the emergency department com plaining of abdominal pain. She states she has had multiple bowel obstructions in the past she has large midline incision scar. She states that she had a colonoscopy 3 days ago and since then has not had a bowel movement and has been vomiting falls chest pain cough or shortness of breath. She states any time she eats she throws it back up and she has been very uncomfortable for the past several days. MD elicited complaint: abdominal pain Related Data Home Medications Medication Instructions Recorded Confirmed levothyroxine 100 mcg tablet 100 mcg PO DAILY 07/21/20 06/25/21 sennosides 8.6 mg tablet 17.2 mg PO BID PRN 07/21/20 06/25/21 trospium 60 mg capsule,extended 60 mg PO DAILY 07/21/20 06/25/21 release 24 hr mirtazapine 7.5 mg tablet 7.5 mg PO BEDTIME PRN 03/15/21 06/25/21 Previous Rx's Medication Instructions Recorded cholecalciferol (vitamin D3) 50 50 mcg PO DAILY #30 cap 01/21/21 mcg (2,000 unit) capsule pantoprazole 40 mg tablet,delayed 40 mg PO DAILY #30 tab 03/30/21 release Allergies Allergy/AdvReac Type Severity Reaction Status Date / Time No Known Allergies Allergy Verified 06/21/21 15:05 [No Known Allergies*] Review of Systems Review of Systems Review of systems: General: Patient denies any fever chills recent illness or falls Musculoskeletal: Denies back pain or body aches or other injuries HEENT: denies headache, runny nose, ear pain Respiratory: denies shortness of breath, cough Cardiovascular: no chest pain or palpitations : denies dysuria, frequency Abdomen: nausea vomiting generalized abdominal pain Extremities: no swelling, no pain Skin: no diaphoresis Yes all other systems are reviewed and are negative Physical Exam Vital Signs: Vital Signs: Last Vital Signs Temp 97.6 F 07/04/21 10:43 Pulse 66 07/04/21 12:36 Resp 18 07/04/21 10:43 BP 94/78 07/04/21 10:43 Pulse Ox 99 07/04/21 12:36 Body Mass Index 39.8 General: Well-appearing well-nourished in no signs of distress HEENT: Normocephalic atraumatic Neck: No signs of JVD, no masses no tenderness or lymphadenopathy Cardiovascular: Regular rate and rhythm Respiratory: Clear to auscultation bilaterally Abdomen: Soft nontender no masses rectal exam performed guiac negative quality assurance monitor final confirmed. Extremities: Normal pedal pulses no signs of edema Skin: Dry warm no rashes Back: No tenderness full ROM MDM - Abdominal Pain MDM Narrative Medical decision making narrative: Concern for post colonoscopy pain verses a colonic obstruction or Crohn's flare I will give patient for CT scan on check labs CBC BMP LFTs lipas. I will give the patient fluids Zofran and morphine. Patient complaining of increased pain and acid reflux I will give Pepcid I will give [address] shows dilated loops of bowel patient is still having pain it looks better. Lab Data Result diagrams: 07/04/21 11:20 07/04/21 11:20 Labs: Lab Results 07/04/21 07/04/21 07/04/21 Range/Units 11:15 11:15 11:15 WBC 8.9 (4.8-10.8) X10*3/uL RBC 5.18 (4.20-5.50) X10*6/uL Hgb 12.3 (12.0-16.0) g/dl Hct 39.3 (37-47) % MCV 75.9 L (80-98) fL MCH 23.7 L (27.0-33.0) pg MCHC 31.3 (31.0-35.0) g/dl RDW 17.2 H (11.0-16.0) % Plt Count 379 (160-400) X10*3/uL MPV 9.7 (9.4-12.3) fL Immature Gran % (Auto) 0.3 (0.0-0.4) % Neut % (Auto) 79.1 H (45-73) % Lymph % (Auto) 14.6 L (20-40) % [place] % (Auto) 5.7 (2-11) % Eos % (Auto) 0.1 (0-4) % Baso % (Auto) 0.2 (0-2) % Lymph # (Auto) 1.3 (1.2-4.9) X10*3/uL [place] # (Auto) 0.5 (0.1-1.2) X10*3/uL Eos # (Auto) 0.0 (0.0-0.4) X10*3/uL Baso # (Auto) 0.0 (0.0-0.2) X10*3/uL Abs Immat Gran (auto) 0.03 (0.00-0.03) X10*3/uL Absolute Neuts (auto) 7.1 (2.0-8.3) X10*3/uL Absolute Nucleated RBC 0.000 (0.0-0.012) X10*3/uL Nucleated RBC % (auto) 0.0 (0.0-0.2) /100WBC Sodium (135-145) mmol/L Potassium (3.3-5.1) mmol/L Chloride (96-108) mmol/L Carbon Dioxide (22-29) mmol/L Anion Gap (12-20) BUN (9-16) mg/dL Creatinine (0.5-1.4) mg/dL Estim Creat Clear Calc Estimated GFR Random Glucose (60-115) mg/dL Calcium (8.4-10.2) mg/dL Total Bilirubin 0.6 (0.0-1.0) mg/dL Direct Bilirubin 0.3 (0.0-0.5) mg/dL AST 18 D (5-31) U/L ALT 15 (0-31) U/L Alkaline Phosphatase 79 D (39-117) U/L Total Protein 7.8 (6.5-8.0) g/dL Albumin 4.2 (3.5-5.0) g/dL Lipase 11 (8-78) U/L Ethyl Alcohol < 10 mg/dL Blood Type Antibody Screen 07/04/21 07/04/21 07/04/21 Range/Units 11:20 11:20 12:19 WBC 9.7 (4.8-10.8) X10*3/uL RBC 5.04 (4.20-5.50) X10*6/uL Hgb 12.0 (12.0-16.0) g/dl Hct 37.7 (37-47) % MCV 74.8 L (80-98) fL MCH 23.8 L (27.0-33.0) pg MCHC 31.8 (31.0-35.0) g/dl RDW 17.0 H (11.0-16.0) % Plt Count 450 H (160-400) X10*3/uL MPV 9.6 (9.4-12.3) fL Immature Gran % (Auto) (0.0-0.4) % Neut % (Auto) (45-73) % Lymph % (Auto) (20-40) % [place] % (Auto) (2-11) % Eos % (Auto) (0-4) % Baso % (Auto) (0-2) % Lymph # (Auto) (1.2-4.9) X10*3/uL [place] # (Auto) (0.1-1.2) X10*3/uL Eos # (Auto) (0.0-0.4) X10*3/uL Baso # (Auto) (0.0-0.2) X10*3/uL Abs Immat Gran (auto) (0.00-0.03) X10*3/uL Absolute Neuts (auto) (2.0-8.3) X10*3/uL Absolute Nucleated RBC 0.000 (0.0-0.012) X10*3/uL Nucleated RBC % (auto) 0.0 (0.0-0.2) /100WBC Sodium 140 (135-145) mmol/L Potassium 4.2 (3.3-5.1) mmol/L Chloride 110 H (96-108) mmol/L Carbon Dioxide 18 L (22-29) mmol/L Anion Gap 16 (12-20) BUN 15 (9-16) mg/dL Creatinine 1.15 (0.5-1.4) mg/dL Estim Creat Clear Calc 60.0 Estimated GFR 48 Random Glucose 152 H (60-115) mg/dL Calcium 9.2 (8.4-10.2) mg/dL Total Bilirubin (0.0-1.0) mg/dL Direct Bilirubin (0.0-0.5) mg/dL AST (5-31) U/L ALT (0-31) U/L Alkaline Phosphatase (39-117) U/L Total Protein (6.5-8.0) g/dL Albumin (3.5-5.0) g/dL Lipase 9 (8-78) U/L Ethyl Alcohol mg/dL Blood Type A Positive Antibody Screen NEGATIVE Discharge Plan Discharge Clinical Impression: Abdominal pain, Bowel obstruction Patient Disposition: Admitted as Observation Prescriptions: No Action cholecalciferol (vitamin D3) 50 mcg (2,000 unit) capsule 50 mcg PO DAILY Qty: 30 RF: 3 pantoprazole 40 mg tablet,delayed release (DR/EC) 40 mg PO DAILY Qty: 30 RF: 3 levothyroxine 100 mcg tablet 100 mcg PO DAILY RF: 0 trospium 60 mg capsule,extended release 24hr 60 mg PO DAILY RF: 0 sennosides 8.6 mg tablet 17.2 mg PO BID PRN (Reason: Constipation) RF: 0 mirtazapine 7.5 mg tablet 7.5 mg PO BEDTIME PRN (Reason: Sleep) RF: 0 PMFSH Past Medical History Medical History (Updated 07/04/21 @ 15:25 by Greg Bustos DO) Acquired hypothyroidism Breast cancer screening other than mammogram Crohn's colitis GERD (gastroesophageal reflux disease) History of shingles Hx of drainage of abscess Hyperparathyroidism Hypothyroidism Large breasts Osteoporosis Overactive bladder Postmenopause RLS (restless legs syndrome) Upper back pain, chronic Vitamin D deficiency Surgical History H/O partial resection of colon History of appendectomy History of esophagogastroduodenoscopy Hx of cholecystectomy Hx of colonoscopy Hx of tonsillectomy Family History Family History Father Lung cancer Mother Diabetes Hypertension Sister No problems noted. Social History Social History Household Members: Family Housing: Apartment Are you a primary transitional care manager to a significant other at home: No Do you presently have visiting nurse or other home services: No Alcohol intake: current Alcohol intake frequency: does not drink Patient Tobacco Use Status: Never used Tobacco e-Cigarette/Vaping Use: Never Used Second Hand Smoke Exposure: No Advance Directives: Yes Advance Directives Information Provided: Yes Advance Directives on File: No Patient : No service: No Current occupational status: employed Current occupation: [employer]
[2021-07-04 11:20] LABS: Basophils Percent Auto 0.2 % (0-2); Eosinophils Percent Auto 0.1 % (0-4); Hematocrit 39.3 % (37-47); Hemoglobin 12.3 g/dl (12.0-16.0); Imm Gran Abs Auto 0.03 X10*3/uL (0.00-0.03); Imm Gran Pct Auto 0.3 % (0.0-0.4); Lymphocytes Absolute Auto 1.3 X10*3/uL (1.2-4.9); Lymphocytes Percent Auto 14.6 % (20-40); MANUAL DIFF FLAG NO; Mean Corpuscular HGB Conc 31.3 g/dl (31.0-35.0); Mean Corpuscular Hemoglobin 23.7 pg (27.0-33.0); Mean Corpuscular Volume 75.9 fL (80-98); Mean Platelet Volume 9.7 fL (9.4-12.3); Monocytes Absolute Auto 0.5 X10*3/uL (0.1-1.2); Monocytes Percent Auto 5.7 % (2-11); Neutrophils Absolute Auto 7.1 X10*3/uL (2.0-8.3); Neutrophils Percent Auto 79.1 % (45-73); Platelet Count 379 X10*3/uL (160-400); Red Blood Count 5.18 X10*6/uL (4.20-5.50); Red Cell Distribution Width 17.2 % (11.0-16.0); White Blood Count 8.9 X10*3/uL (4.8-10.8)
[2021-07-04 11:28] LABS: Hematocrit 37.7 % (37-47); Mean Corpuscular HGB Conc 31.8 g/dl (31.0-35.0); Mean Corpuscular Hemoglobin 23.8 pg (27.0-33.0); Mean Corpuscular Volume 74.8 fL (80-98); Mean Platelet Volume 9.6 fL (9.4-12.3); Platelet Count 450 X10*3/uL (160-400); Red Blood Count 5.04 X10*6/uL (4.20-5.50); White Blood Count 9.7 X10*3/uL (4.8-10.8)
[2021-07-04 11:35] LABS: Ethanol < 10 mg/dL
[2021-07-04 11:39] LABS: Alanine Aminotransferase 15 U/L (0-31); Albumin Level 4.2 g/dL (3.5-5.0); Alkaline Phosphatase 79 U/L (39-117); Aspartate Amino Transferase 18 U/L (5-31); Bilirubin Direct 0.3 mg/dL (0.0-0.5); Bilirubin Total 0.6 mg/dL (0.0-1.0); Lipase 11 U/L (8-78); Total Protein 7.8 g/dL (6.5-8.0)
[2021-07-04 11:47] LABS: Anion Gap 16 (12-20); Blood Urea Nitrogen 15 mg/dL (9-16); Calcium 9.2 mg/dL (8.4-10.2); Carbon Dioxide 18 mmol/L (22-29); Chloride 110 mmol/L (96-108); Estimated Glomerular Filt Rate 48; Glucose Random 152 mg/dL (60-115); Lipase 9 U/L (8-78); Potassium 4.2 mmol/L (3.3-5.1); Sodium 140 mmol/L (135-145)
[2021-07-04] MEDS: ondansetron HCL 4 MG/2 ML VIAL IVPUSH ×2 (11:48→21:36)
[2021-07-04] MEDS: Morphine Sulfate 4 MG/ML CARTRIDGE IVPUSH (11:48)
[2021-07-04] MEDS: 0.9 % Sodium Chloride 500 ML 999 ML IV (11:49)
[2021-07-04 12:36] VITALS: PULSE 66; O2SAT 99
[2021-07-04] MEDS: Morphine Sulfate 10 MG/ML CARTRIDGE 6 MG IVPUSH (12:54)
[2021-07-04] MEDS: Famotidine/PF 20 MG/2 ML VIAL IVPUSH (13:35)
[2021-07-04] MEDS: iohexoL 350 MG/ML 100 ML INFUS..BTL IV (13:44)
[2021-07-04 15:20] VITALS: PULSE 65; O2SAT 96
[2021-07-04 15:41] LABS: Appearance Urine CLEAR; Color Urine YELLOW; Glucose Urine UA NEG (NEG); Leukocyte Esterase Urine NEG (NEG); Nitrite Urine POS (NEG); PH 5.5 (5.0-8.0); Specific Gravity - Urine 1.015 (1.005-1.025); UACC Culture Trigger YES; Urine Blood NEG (NEG); Urine Ketones NEG (NEG); Urine Protein TRACE MG/DL (NEG-TRACE)
--- NOTE | 2021-07-04 15:50 | PC.NURSE ---
NG tube placed, pt tolerated well. informed of NPO status and that pt will be admit to the hospital. pt aware of plan
[2021-07-04 15:52] LABS: Bacteria Urine TRACE /LPF; RBC Urine 0-2 /HPF (0); Squamous Epithelial Cell Urine TRACE /LPF; WBC Urine 0-2 /HPF (0-4)
--- NOTE | 2021-07-04 15:54 | PC.NURSE ---
Med rec complete
--- NOTE | 2021-07-04 15:55 | P.HPHOSP_ITS ---
History of Present Illness Date of Service: 07/04/21 Chief Complaint: abd pain 60F with pmh crohns, sbo, recent colonoscopy 07/02/21 with some ulcerations proximal to ileo colic anastamosis, complaining of abdominal pain, heartburn, nas[place]a, vomitting, abd distension, since colonoscopy. she does report small BMs, including on day of presentation and is passing gas. denies fever, chills, chest pain. in ED CT showed dilated small and large bowel, no transistion point, similar to CT from 2019. NGT was placed with some relief of symptoms. Review of Systems Review of Systems: Constitutional: Denies fever, denies Chills Eyes: denies blurry vision ENT: denies sore throat CVS: denies chest pain Respiratory: Denies dyspnea GI: abdominal pain : denies dysuria MSK: denies neck pain Skin: denies rash Neuro: denies specific motor weakness Psych: denies suicidal ideation Endocrine: denies heat/cold intolerance Hematologic: denies easy bleeding Allergy: denies hives [facility] Medical History (Updated 07/04/21 @ 15:59 by Nick Banks MD) Acquired hypothyroidism Breast cancer screening other than mammogram Crohn's colitis GERD (gastroesophageal reflux disease) History of shingles Hx of drainage of abscess Hyperparathyroidism Hypothyroidism Large breasts Morbid obesity Osteoporosis Overactive bladder Postmenopause RLS (restless legs syndrome) Upper back pain, chronic Vitamin D deficiency Family History Father Lung cancer Mother Diabetes Hypertension Sister No problems noted. Pertinent family history: . Surgical History H/O partial resection of colon History of appendectomy History of esophagogastroduodenoscopy Hx of cholecystectomy Hx of colonoscopy Hx of tonsillectomy Social History Household Members: Family Housing: Apartment Are you a primary career placement specialist to a significant other at home: No Do you presently have visiting nurse or other home services: No Alcohol intake: current Alcohol intake frequency: does not drink Patient Tobacco Use Status: Never used Tobacco e-Cigarette/Vaping Use: Never Used Second Hand Smoke Exposure: No Advance Directives: Yes Advance Directives Information Provided: Yes Advance Directives on File: No Patient : No service: No Current occupational status: employed Current occupation: [employer] Allergies Allergy/AdvReac Type Severity Reaction Status Date / Time No Known Allergies Allergy Verified 06/21/21 15:05 [No Known Allergies*] Active Medications: Current Medications Pharmacy Consult (Consult Rx Perform Med Rec) 1 each MISCELLANE ONCE PRN PRN Reason: Consult order Home Medications Medication Instructions Recorded Confirmed Last Taken Type levothyroxine 100 mcg tablet 100 mcg PO DAILY 07/21/20 06/25/21 07/02/21 History sennosides 8.6 mg tablet 17.2 mg PO BID PRN 07/21/20 07/04/21 Unknown History trospium 60 mg capsule,extended 60 mg PO DAILY 07/21/20 07/04/21 Unknown History release 24 hr mirtazapine 7.5 mg tablet 7.5 mg PO BEDTIME PRN 03/15/21 07/04/21 Unknown History levothyroxine 100 mcg tablet 1 tab PO DAILY 07/04/21 07/04/21 Unknown History mesalamine 500 mg cap PO 07/04/21 Unknown History capsule,controlled release (Pentasa) pantoprazole 40 mg tablet,delayed 1 tab PO DAILY 07/04/21 07/04/21 Unknown History release Physical Exam 2 Vital Signs and Narrative: Vital Signs: Last Vital Signs Temp 97.6 F 07/04/21 10:43 Pulse 65 07/04/21 15:20 Resp 18 07/04/21 10:43 BP 94/78 07/04/21 10:43 Pulse Ox 96 07/04/21 15:20 Body Mass Index 39.8 General: anxious HEENT: +NGT, yellow fluid draining, atraumatic Neck: normal to visual inspection CVS: S1, S2, RRR Resp: CTA bilateral Chest: non tender, non distended, +BS GI: soft, non tender, non distended : no CVA tenderness Skin: no rashes Extremities: no edema Neuro: Oriented X3, grossly intact Psych: cooperative, anxious Results Labs CBC and Chem 7: 07/04/21 11:20 07/04/21 11:20 Labs: Laboratory Results - last 24 hr 07/04/21 07/04/21 07/04/21 11:15 11:15 11:15 MCV 75.9 L MCH 23.7 L MCHC 31.3 RDW 17.2 H Plt Count 379 MPV 9.7 Immature Gran % (Auto) 0.3 Neut % (Auto) 79.1 H Lymph % (Auto) 14.6 L [place] % (Auto) 5.7 Eos % (Auto) 0.1 Baso % (Auto) 0.2 Lymph # (Auto) 1.3 [place] # (Auto) 0.5 Eos # (Auto) 0.0 Baso # (Auto) 0.0 Abs Immat Gran (auto) 0.03 Absolute Neuts (auto) 7.1 Absolute Nucleated RBC 0.000 Nucleated RBC % (auto) 0.0 Anion Gap Estim Creat Clear Calc Estimated GFR Random Glucose Calcium Total Bilirubin 0.6 Direct Bilirubin 0.3 AST 18 D ALT 15 Alkaline Phosphatase 79 D Total Protein 7.8 Albumin 4.2 Lipase 11 Urine Color Urine Appearance Urine pH Ur Specific [place] Urine Protein Urine Glucose (UA) Urine Ketones Urine Blood Urine Nitrite Ur Leukocyte Esterase Urine RBC Urine WBC Ur Squamous Epith Cells Urine Bacteria Ethyl Alcohol < 10 Blood Type Antibody Screen 07/04/21 07/04/21 07/04/21 11:20 11:20 12:19 MCV 74.8 L MCH 23.8 L MCHC 31.8 RDW 17.0 H Plt Count 450 H MPV 9.6 Immature Gran % (Auto) Neut % (Auto) Lymph % (Auto) [place] % (Auto) Eos % (Auto) Baso % (Auto) Lymph # (Auto) [place] # (Auto) Eos # (Auto) Baso # (Auto) Abs Immat Gran (auto) Absolute Neuts (auto) Absolute Nucleated RBC 0.000 Nucleated RBC % (auto) 0.0 Anion Gap 16 Estim Creat Clear Calc 60.0 Estimated GFR 48 Random Glucose 152 H Calcium 9.2 Total Bilirubin Direct Bilirubin AST ALT Alkaline Phosphatase Total Protein Albumin Lipase 9 Urine Color Urine Appearance Urine pH Ur Specific [place] Urine Protein Urine Glucose (UA) Urine Ketones Urine Blood Urine Nitrite Ur Leukocyte Esterase Urine RBC Urine WBC Ur Squamous Epith Cells Urine Bacteria Ethyl Alcohol Blood Type A Positive Antibody Screen NEGATIVE 07/04/21 15:22 MCV MCH MCHC RDW Plt Count MPV Immature Gran % (Auto) Neut % (Auto) Lymph % (Auto) [place] % (Auto) Eos % (Auto) Baso % (Auto) Lymph # (Auto) [place] # (Auto) Eos # (Auto) Baso # (Auto) Abs Immat Gran (auto) Absolute Neuts (auto) Absolute Nucleated RBC Nucleated RBC % (auto) Anion Gap Estim Creat Clear Calc Estimated GFR Random Glucose Calcium Total Bilirubin Direct Bilirubin AST ALT Alkaline Phosphatase Total Protein Albumin Lipase Urine Color YELLOW Urine Appearance CLEAR Urine pH 5.[address] [place] 1.015 Urine Protein TRACE Urine Glucose (UA) NEG Urine Ketones NEG Urine Blood NEG Urine Nitrite POS H Ur Leukocyte Esterase NEG Urine RBC 0-2 Urine WBC 0-2 Ur Squamous Epith Cells TRACE Urine Bacteria TRACE Ethyl Alcohol Blood Type Antibody Screen Imaging Radiologist's Impressions: Impressions Abdomen/Pelvis CT 07/04/21 11:00 IMPRESSION: Postsurgical changes of subtotal colectomy and multiple dilated small and large bowel loops, appear similar to prior study dated 06/01/2019. No evidence of any free intraperitoneal air. Assessment and Plan (1) Morbid obesity: Status: Acute (2) Bowel obstruction: Status: Acute (3) Abdominal pain: Status: Acute 60F presented with abdominal pain abdominal pain ?ileus vs bowel obstruction (less likely) NGT, IVF, surgical eval, pain control, monitor electrolytes hypothyroid synthroid crohns mesalamine morbid obesity weight loss recommended dvt prophylaxis - lovenox full code Quality Stroke Does the patient have a stroke diagnosis?: No VTE Prior VTE?: No VTE Risk Level:: Medical - moderate - high VTE Device Contraindication: Treatment Not Indicated VTE Drug Contraindication: N/A - Med Ordered
[2021-07-04] MEDS: Lidocaine HCl Viscous 2 % 15 ML SOLUTION MUCOUS MEM (15:58)
[2021-07-04] MEDS: Lactated Ringers 1,000 ML 80 ML IVCONT (16:30)
[2021-07-04 16:32] LABS: COVID-19 Test Negative (Negative)
[2021-07-04] MEDS: Mesalamine 250 MG CAPSULE.ER 1000 MG PO ×2 (16:33→21:36)
[2021-07-04] MEDS: Morphine Sulfate 2 MG/ML CARTRIDGE IVPUSH ×2 (16:39→20:58)
[2021-07-04 16:45] VITALS: PULSE 64; O2SAT 97
--- NOTE | 2021-07-04 16:45 | PC.NURSE ---
pt unable to tolerate PO medications - vomited two capsules back up. will notify
--- NOTE | 2021-07-04 16:56 | PC.NURSE ---
to order Zofran for vomiting following PO administration of medications
--- NOTE | 2021-07-04 18:10 | PM.CNGS ---
History of Present Illness Consult details Consult date: 07/04/21 Reason for consult: abdominal pain (Post colonoscopy) Requesting physician: Nick Banks Narrative: This is a 60-year-old female with a history of Crohn's disease and colitis and a remote history of subtotal colectomy who underwent routine colonoscopy with Dr. Navas on 07/02/2021. The ileocolic anastomosis was identified at 30 cm. Increased vascularity was noted within the sigmoid colon. Following the colonoscopy, she reports that she had bloating and abdominal pain. She has been unable to eat and has had some nausea and vomiting. She reports persistent heartburn and diffuse abdominal pain that is moderate and constant. She has a history of prior admissions for possible small-bowel obstruction versus prolonged ileus. A CT scan of the abdomen and pelvis was obtained in the emergency department and demonstrated: IMPRESSION: Postsurgical changes of subtotal colectomy and multiple dilated small and large bowel loops, appear similar to prior study dated 06/01/2019. No evidence of any free intraperitoneal air.? Dictated By: SAWYER AVITIA MD Signed By: <Electronically signed by SAWYER AVITIA MD in OV> 07/04/21 1448 Review of Systems Constitutional: Constitutional: Reports no additional constitutional complaints, Denies chills, Denies fever(s) and Denies headache(s) ENT: Denies dizziness and Denies headache(s) Cardiovascular: Cardiovascular: Denies chest pain, Denies irregular heart rhythm and Denies dyspnea on exertion Respiratory: Respiratory: Denies cough, Denies dyspnea on exertion and Denies wheezing Gastrointestinal: Gastrointestinal: Reports as per HPI and Denies nausea Genitourinary: Genitourinary: Denies urinary frequency and Denies dysuria Musculoskeletal: Musculoskeletal: Reports no additional musculoskeletal complaints Integumentary/Breasts: Skin/Breast: Denies pruritus and Denies rash Neurologic: Denies dizziness, Denies headache(s) and Denies memory loss Psychiatric: Psychiatric: Denies memory loss Hematologic/Lymphatic: Hematologic/Lymphatic: Denies easy bleeding and Reports other (history of blood clots) Allergic/Immunologic: Allergic/Immunologic: Denies wheezing PMFSH Past Medical History Medical History Acquired hypothyroidism Breast cancer screening other than mammogram Crohn's colitis GERD (gastroesophageal reflux disease) History of shingles Hx of drainage of abscess Hyperparathyroidism Hypothyroidism Large breasts Morbid obesity Osteoporosis Overactive bladder Postmenopause RLS (restless legs syndrome) Upper back pain, chronic Vitamin D deficiency Family History Family History Father Lung cancer Mother Diabetes Hypertension Sister No problems noted. Surgical History Surgical History H/O partial resection of colon History of appendectomy History of esophagogastroduodenoscopy Hx of cholecystectomy Hx of colonoscopy Hx of tonsillectomy Social History Social History Household Members: Family Housing: Apartment Are you a primary child care development specialist to a significant other at home: No Do you presently have visiting nurse or other home services: No Alcohol intake: current Alcohol intake frequency: does not drink Patient Tobacco Use Status: Never used Tobacco e-Cigarette/Vaping Use: Never Used Second Hand Smoke Exposure: No Advance Directives: Yes Advance Directives Information Provided: Yes Advance Directives on File: No Patient : No service: No Current occupational status: employed Current occupation: [employer] Allergies Allergy/AdvReac Type Severity Reaction Status Date / Time No Known Allergies Allergy Verified 06/21/21 15:05 [No Known Allergies*] Active Medications: Current Medications Acetaminophen (Acetaminophen 325 Mg Tablet) 650 mg PO Q6H PRN PRN Reason: Pain, Mild (Pain Scale 1-3) Enoxaparin Sodium (Enoxaparin Sodium 40 Mg/0.4 Ml Syringe) 40 mg SUBCUT DAILY [facility] Lactated Ringer's (Lr) 1,000 mls @ 80 mls/hr IVCONT .[id number] [facility] Last Admin: 07/04/21 16:30 Dose: 80 mls/hr Documented by: Levothyroxine Sodium (Levothyroxine Sodium 100 Mcg Tablet) 100 mcg PO DAILY@0630 [facility] Mesalamine (Mesalamine 250 Mg Capsule.Er) 1,000 mg PO QID [facility] Last Admin: 07/04/21 16:33 Dose: 1,000 mg Documented by: Mirtazapine (Mirtazapine 7.5 Mg Tablet) 7.5 mg PO BEDTIME PRN PRN Reason: Sleep Morphine Sulfate (Morphine Sulfate 2 Mg/Ml Cartridge) 2 mg IVPUSH Q4H PRN; Protocol PRN Reason: Pain, Severe (Pain Scale 7-10) Last Admin: 07/04/21 16:39 Dose: 2 mg Documented by: Ondansetron HCl (Ondansetron Hcl 4 Mg/2 Ml Vial) 4 mg IVPUSH Q8H PRN PRN Reason: Nausea and Vomiting Pantoprazole Sodium (Pantoprazole Sodium 40 Mg/10 Ml Vial) 40 mg IVPUSH DAILY@0630 [facility] Pharmacy Consult (Consult Rx Perform Med Rec) 1 each MISCELLANE ONCE PRN PRN Reason: Consult order Sodium Chloride (0.9 % Sodium Chloride Flush 3 Ml Syringe) 3 ml IVFLUSH [facility] Last Admin: 07/04/21 16:34 Dose: Not Given Documented by: Home Medications Medication Instructions Recorded Confirmed Last Taken Type levothyroxine 100 mcg tablet 100 mcg PO DAILY 07/21/20 06/25/21 07/02/21 History sennosides 8.6 mg tablet 17.2 mg PO BID PRN 07/21/20 07/04/21 Unknown History trospium 60 mg capsule,extended 60 mg PO DAILY 07/21/20 07/04/21 Unknown History release 24 hr mirtazapine 7.5 mg tablet 7.5 mg PO BEDTIME PRN 03/15/21 07/04/21 Unknown History levothyroxine 100 mcg tablet 1 tab PO DAILY 07/04/21 07/04/21 Unknown History mesalamine 500 mg cap PO 07/04/21 Unknown History capsule,controlled release (Pentasa) pantoprazole 40 mg tablet,delayed 1 tab PO DAILY 07/04/21 07/04/21 Unknown History release Physical Exam Vital Signs: Vital Signs: Last Vital Signs Temp 97.6 F 07/04/21 10:43 Pulse 64 07/04/21 16:45 Resp 18 07/04/21 10:43 BP 94/78 07/04/21 10:43 Pulse Ox 97 07/04/21 16:45 Body Mass Index 39.8 Const: General: cooperative, healthy appearing and no acute distress Eyes: General: appearance normal, both eyes and all related structures Neck: Neck: Yes trachea midline and Yes supple Resp: Effort & Inspection: normal respiratory effort Auscultation: clear to auscultation bilaterally GI: Other: Soft, round, nontender, no palpable masses, well-healed midline scar, active bowel sounds Rectal Exam - Female: deferred Skin: Other: Warm General skin exam: no rashes or lesions noted Extrem: General: Yes normal to inspection Results Labs Result diagrams: 07/04/21 11:20 07/04/21 11:20 Labs: Abnormal lab results 07/04/21 07/04/21 07/04/21 Range/Units 11:15 11:20 11:20 MCV 75.9 L 74.8 L (80-98) fL MCH 23.7 L 23.8 L (27.0-33.0) pg RDW 17.2 H 17.0 H (11.0-16.0) % Plt Count 450 H (160-400) X10*3/uL Neut % (Auto) 79.1 H (45-73) % Lymph % (Auto) 14.6 L (20-40) % Chloride 110 H (96-108) mmol/L Carbon Dioxide 18 L (22-29) mmol/L Random Glucose 152 H (60-115) mg/dL Urine Nitrite (NEG) 07/04/21 Range/Units 15:22 MCV (80-98) fL MCH (27.0-33.0) pg RDW (11.0-16.0) % Plt Count (160-400) X10*3/uL Neut % (Auto) (45-73) % Lymph % (Auto) (20-40) % Chloride (96-108) mmol/L Carbon Dioxide (22-29) mmol/L Random Glucose (60-115) mg/dL Urine Nitrite POS H (NEG) Short CBC 07/04/21 07/04/21 Range/Units 11:15 11:20 WBC 8.9 9.7 (4.8-10.8) X10*3/uL Hgb 12.3 12.0 (12.0-16.0) g/dl Hct 39.3 37.7 (37-47) % Plt Count 379 450 H (160-400) X10*3/uL BMP 07/04/21 11:20 Sodium 140 Potassium 4.2 Chloride 110 H Carbon Dioxide 18 L BUN 15 Creatinine 1.15 Calcium 9.2 Liver Function 07/04/21 Range/Units 11:15 Total Bilirubin 0.6 (0.0-1.0) mg/dL Direct Bilirubin 0.3 (0.0-0.5) mg/dL AST 18 D (5-31) U/L ALT 15 (0-31) U/L Alkaline Phosphatase 79 D (39-117) U/L Albumin 4.2 (3.5-5.0) g/dL Urine 07/04/21 Range/Units 15:22 Urine Color YELLOW Urine Appearance CLEAR Urine pH 5.5 (5.0-8.0) Ur Specific [place] 1.015 (1.005-1.025) Urine Protein TRACE (NEG-TRACE) MG/DL Urine Glucose (UA) NEG (NEG) MG/DL All other labs normal. Imaging Abdomen CT scan report/results: report reviewed and image reviewed CT scan - pelvis: report reviewed and image reviewed Assessment and Plan (1) Abdominal pain: Status: Acute (2) Bowel obstruction: Status: Acute 60-year-old female presenting with abdominal pain, nausea and vomiting [address] findings are consistent with segmental ileus though the possibility of partial small-bowel obstruction cannot be completely ruled out. Significant gastric distension and dilated loops of small bowel were noted on CT scan. NG tube has been inserted. She will be kept NPO and on IV fluids initially and further plans will be made depending upon clinical progress. General surgery will follow along. Procedures Date of Service Date of Service: 07/04/21
--- NOTE | 2021-07-04 22:45 | PC.NURSE ---
pt resting with eyes closed, report given to RN on S3, plan to bring pt to floor at 2300.
[2021-07-04 23:29] VITALS: BP 119/60; PULSE 80; RESP 18; TEMP 36.9; O2SAT 92
[2021-07-04] MEDS: 0.9 % Sodium Chloride Flush 3 ML SYRINGE IVFLUSH (23:55)
[2021-07-05] VITALS (7 sets, daily range): BP systolic 108–138; BP diastolic 58–65; PULSE 64–78; RESP 16–18; TEMP 36.3–37.4; O2SAT 91–96
[2021-07-05] MEDS: Morphine Sulfate 2 MG/ML CARTRIDGE IVPUSH ×4 (04:28→20:20)
[2021-07-05] MEDS: Lactated Ringers 1,000 ML 80 ML IVCONT ×2 (05:44→15:56)
[2021-07-05] MEDS: Levothyroxine Sodium 100 MCG TABLET PO (05:45)
[2021-07-05] MEDS: Pantoprazole Sodium 40 MG/10 ML VIAL IVPUSH (05:45)
[2021-07-05 06:19] LABS: Hematocrit 31.3 % (37-47); Hemoglobin 9.8 g/dl (12.0-16.0); Mean Corpuscular HGB Conc 31.3 g/dl (31.0-35.0); Mean Corpuscular Hemoglobin 23.8 pg (27.0-33.0); Mean Corpuscular Volume 76.2 fL (80-98); Mean Platelet Volume 9.6 fL (9.4-12.3); Platelet Count 322 X10*3/uL (160-400); Red Blood Count 4.11 X10*6/uL (4.20-5.50); Red Cell Distribution Width 17.2 % (11.0-16.0); White Blood Count 9.2 X10*3/uL (4.8-10.8)
[2021-07-05 06:31] LABS: Anion Gap 12 (12-20); Blood Urea Nitrogen 12 mg/dL (9-16); Calcium 8.6 mg/dL (8.4-10.2); Carbon Dioxide 21 mmol/L (22-29); Chloride 111 mmol/L (96-108); Creatinine Clr Calc Pharmacy 81.3; Estimated Glomerular Filt Rate > 60; Glucose Fasting 107 mg/dL (60-99); Sodium 140 mmol/L (135-145)
--- NOTE | 2021-07-05 08:24 | P.PNGS_ITS ---
Subjective Subjective Date of Service: 07/06/21 Interval history: Denies flatus Says she feels ?okay? Some abdominal pain, little better NG tube in place Physical Exam Vital Signs: Vital Signs: Last Vital Signs Temp 97.3 F 07/05/21 07:11 Pulse 64 07/05/21 07:11 Resp 16 07/05/21 07:11 BP 120/63 07/05/21 07:11 Pulse Ox 96 07/05/21 07:11 Body Mass Index 39.8 Const: Other: Chemistry 07/04/21 07/05/21 11:20 06:02 Sodium 140 140 Potassium 4.2 4.0 Carbon Dioxide 18 L 21 L BUN 15 12 Creatinine 1.15 0.85 Calcium 9.2 8.6 D Hematology 07/04/21 07/04/21 07/05/21 11:15 11:20 06:02 WBC 8.9 9.7 9.2 Hgb 12.3 12.0 9.8 L Plt Count 379 450 H 322 D Urinalysis 07/04/21 15:22 Urine Color YELLOW Urine Appearance CLEAR Urine pH 5.5 Ur Specific [place] y 1.015 Urine Protein TRACE Urine Glucose (UA) NEG Urine Ketones NEG Urine Blood NEG Urine Nitrite POS H Ur Leukocyte [place] NEG Urine RBC 0-2 Urine WBC 0-2 Ur Squamous Epith Cells TRACE General: no acute distress Nutritional Appearance: obese Resp: Effort & Inspection: normal respiratory effort Cardio: Rate: regular rate GI: Palpation (GI): Soft to palpation, not firm, Tenderness to palpation present (GI) (Mild tenderness), no guarding and not rigid Procedures Date of Service Date of Service: 07/06/21 Progress Note: A&P Assessment and plan (1) Bowel obstruction: Status: Acute Assessment and Plan: NG tube in place - still with significant output Abdomen remains benign Will see how NG tube output is for the day, reevaluate later on Explained plan to patient CT consistent with segmental ileus, although partial small-bowel obstruction not completely excluded Fall Risk Details Current Medications: Current Medications Acetaminophen (Acetaminophen 325 Mg Tablet) 650 mg PO Q6H PRN PRN Reason: Pain, Mild (Pain Scale 1-3) Enoxaparin Sodium (Enoxaparin Sodium 40 Mg/0.4 Ml Syringe) 40 mg SUBCUT DAILY [facility] Lactated Ringer's (Lr) 1,000 mls @ 80 mls/hr IVCONT .[id number] [facility] Last Admin: 07/05/21 05:44 Dose: 80 mls/hr Documented by: Levothyroxine Sodium (Levothyroxine Sodium 100 Mcg Tablet) 100 mcg PO DAILY@0630 [facility] Last Admin: 07/05/21 05:45 Dose: 100 mcg Documented by: Mesalamine (Mesalamine 250 Mg Capsule.Er) 1,000 mg PO QID [facility] Last Admin: 07/04/21 21:36 Dose: 1,000 mg Documented by: Mirtazapine (Mirtazapine 7.5 Mg Tablet) 7.5 mg PO BEDTIME PRN PRN Reason: Sleep Morphine Sulfate (Morphine Sulfate 2 Mg/Ml Cartridge) 2 mg IVPUSH Q4H PRN; Protocol PRN Reason: Pain, Severe (Pain Scale 7-10) Last Admin: 07/05/21 04:28 Dose: 2 mg Documented by: Ondansetron HCl (Ondansetron Hcl 4 Mg/2 Ml Vial) 4 mg IVPUSH Q8H PRN PRN Reason: Nausea and Vomiting Last Admin: 07/04/21 21:36 Dose: 4 mg Documented by: Pantoprazole Sodium (Pantoprazole Sodium 40 Mg/10 Ml Vial) 40 mg IVPUSH DAILY@629 [facility] Last Admin: 07/05/21 05:45 Dose: 40 mg Documented by: Pharmacy Consult (Consult Rx Perform Med Rec) 1 each MISCELLANE ONCE PRN PRN Reason: Consult order Sodium Chloride (0.9 % Sodium Chloride Flush 3 Ml Syringe) 3 ml IVFLUSH QSHIFT [facility] Last Admin: 07/05/21 07:40 Dose: Not Given Documented by: Time Spent With Patient Time: Total time spent is greater than 50% in coordination of care (as documented) at patient's floor/unit and/or counseling patient: Time with patient: 15 - 24 minutes Quality Stroke Does the patient have a stroke diagnosis?: No VTE Prior VTE?: No VTE Risk Level:: Medical - moderate - high VTE Device Contraindication: Treatment Not Indicated VTE Drug Contraindication: N/A - Med Ordered
[2021-07-05] MEDS: Mesalamine 250 MG CAPSULE.ER 1000 MG PO (08:48)
[2021-07-05] MEDS: Enoxaparin Sodium 40 MG/0.4 ML SYRINGE SUBCUT (08:48)
--- NOTE | 2021-07-05 09:24 | MHC.CM.PN ---
PT REPORTS SHE LIVES AT HOME WITH HER MOTHER AND IS INDEPENDENT WITH ALL CARE PT DENIES USING DME OR HAVING IN HOME SERVICES PT CONFIRMS HER PCP IS BERNADETTE PALMA PT REPORTS HER SISTER IS HER HCP-COPY REQUESTED CURRENT DC PLAN IS HOME WITH NO SERVICES PT TO SELF ARRANGE TRANSPORT
--- NOTE | 2021-07-05 10:20 | P.PNIM_ITS ---
Subjective Subjective Date of Service: 07/05/21 Interval History: cc: abd pain, n/v interval history: some relief after NGT, still no appetite Cardiovascular Cardiovascular: Reports no additional cardiovascular complaints Respiratory Respiratory: Reports no additional respiratory complaints Physical Exam Vital Signs: Vital Signs: Last Vital Signs Temp 97.3 F 07/05/21 07:11 Pulse 64 07/05/21 07:11 Resp 16 07/05/21 07:11 BP 120/63 07/05/21 07:11 Pulse Ox 96 07/05/21 07:11 Body Mass Index 39.8 General: AO X 3, in discomfort Resp: CTA bilateral, no accessory muscles used CVS: S1,S2,RRR GI: soft, non tender, mildly distended, +bs Neuro: motor grossly intact, alert Psych: appropriate affect, appropriate insight Objective Data Active Medications Acetaminophen (Acetaminophen 325 Mg Tablet) 650 mg PO Q6H PRN PRN Reason: Pain, Mild (Pain Scale 1-3) Enoxaparin Sodium (Enoxaparin Sodium 40 Mg/0.4 Ml Syringe) 40 mg SUBCUT DAILY [facility] Last Admin: 07/05/21 08:48 Dose: 40 mg Documented by: TRUDI Lactated Ringer's (Lr) 1,000 mls @ 80 mls/hr IVCONT .[id number] [facility] Last Admin: 07/05/21 05:44 Dose: 80 mls/hr Documented by: MICAH Levothyroxine Sodium (Levothyroxine Sodium 100 Mcg Tablet) 100 mcg PO DAILY@0630 [facility] Last Admin: 07/05/21 05:45 Dose: 100 mcg Documented by: MICAH Mesalamine (Mesalamine 250 Mg Capsule.Er) 1,000 mg PO QID [facility] Last Admin: 07/05/21 08:48 Dose: 1,000 mg Documented by: TRUDI Mirtazapine (Mirtazapine 7.5 Mg Tablet) 7.5 mg PO BEDTIME PRN PRN Reason: Sleep Morphine Sulfate (Morphine Sulfate 2 Mg/Ml Cartridge) 2 mg IVPUSH Q4H PRN; Protocol PRN Reason: Pain, Severe (Pain Scale 7-10) Last Admin: 07/05/21 04:28 Dose: 2 mg Documented by: MICAH Ondansetron HCl (Ondansetron Hcl 4 Mg/2 Ml Vial) 4 mg IVPUSH Q8H PRN PRN Reason: Nausea and Vomiting Last Admin: 07/04/21 21:36 Dose: 4 mg Documented by: HARPREET Pantoprazole Sodium (Pantoprazole Sodium 40 Mg/10 Ml Vial) 40 mg IVPUSH DAILY@0630 [facility] Last Admin: 07/05/21 05:45 Dose: 40 mg Documented by: MICAH Pharmacy Consult (Consult Rx Perform Med Rec) 1 each MISCELLANE ONCE PRN PRN Reason: Consult order Sodium Chloride (0.9 % Sodium Chloride Flush 3 Ml Syringe) 3 ml IVFLUSH QSHIFT [facility] Last Admin: 07/05/21 07:40 Dose: Not Given Documented by: TRUDI Non-Admin Reason: IV Running Labs CBC & Chem 7: 07/05/21 06:02 07/05/21 06:02 Labs: Laboratory Results - last 24 hr 07/04/21 07/04/21 07/04/21 11:15 11:15 11:15 MCV 75.9 L MCH 23.7 L MCHC 31.3 RDW 17.2 H Plt Count 379 MPV 9.7 Immature Gran % (Auto) 0.3 Neut % (Auto) 79.1 H Lymph % (Auto) 14.6 L [place] % (Auto) 5.7 Eos % (Auto) 0.1 Baso % (Auto) 0.2 Lymph # (Auto) 1.3 [place] # (Auto) 0.5 Eos # (Auto) 0.0 Baso # (Auto) 0.0 Abs Immat Gran (auto) 0.03 Absolute Neuts (auto) 7.1 Absolute Nucleated RBC 0.000 Nucleated RBC % (auto) 0.0 Anion Gap Estim Creat Clear Calc Estimated GFR Random Glucose Fasting Glucose Calcium Total Bilirubin 0.6 Direct Bilirubin 0.3 AST 18 D ALT 15 Alkaline Phosphatase 79 D Total Protein 7.8 Albumin 4.2 Lipase 11 Urine Color Urine Appearance Urine pH Ur Specific [place] Urine Protein Urine Glucose (UA) Urine Ketones Urine Blood Urine Nitrite Ur Leukocyte Esterase Urine RBC Urine WBC Ur Squamous Epith Cells Urine Bacteria Ethyl Alcohol < 10 COVID-19 ([facility]) COVID-19 Clin Com Blood Type Antibody Screen 07/04/21 07/04/21 07/04/21 11:20 11:20 12:19 MCV 74.8 L MCH 23.8 L MCHC 31.8 RDW 17.0 H Plt Count 450 H MPV 9.6 Immature Gran % (Auto) Neut % (Auto) Lymph % (Auto) [place] % (Auto) Eos % (Auto) Baso % (Auto) Lymph # (Auto) [place] # (Auto) Eos # (Auto) Baso # (Auto) Abs Immat Gran (auto) Absolute Neuts (auto) Absolute Nucleated RBC 0.000 Nucleated RBC % (auto) 0.0 Anion Gap 16 Estim Creat Clear Calc 60.0 Estimated GFR 48 Random Glucose 152 H Fasting Glucose Calcium 9.2 Total Bilirubin Direct Bilirubin AST ALT Alkaline Phosphatase Total Protein Albumin Lipase 9 Urine Color Urine Appearance Urine pH Ur Specific [place] Urine Protein Urine Glucose (UA) Urine Ketones Urine Blood Urine Nitrite Ur Leukocyte Esterase Urine RBC Urine WBC Ur Squamous Epith Cells Urine Bacteria Ethyl Alcohol COVID-19 ([facility]) COVID-19 Clin Com Blood Type A Positive Antibody Screen NEGATIVE 07/04/21 07/04/21 07/05/21 15:22 16:15 06:02 MCV 76.2 L MCH 23.8 L MCHC 31.3 RDW 17.2 H Plt Count 322 D MPV 9.6 Immature Gran % (Auto) Neut % (Auto) Lymph % (Auto) [place] % (Auto) Eos % (Auto) Baso % (Auto) Lymph # (Auto) [place] # (Auto) Eos # (Auto) Baso # (Auto) Abs Immat Gran (auto) Absolute Neuts (auto) Absolute Nucleated RBC 0.000 Nucleated RBC % (auto) 0.0 Anion Gap Estim Creat Clear Calc Estimated GFR Random Glucose Fasting Glucose Calcium Total Bilirubin Direct Bilirubin AST ALT Alkaline Phosphatase Total Protein Albumin Lipase Urine Color YELLOW Urine Appearance CLEAR Urine pH 5.5 Ur Specific [place] 1.015 Urine Protein TRACE Urine Glucose (UA) NEG Urine Ketones NEG Urine Blood NEG Urine Nitrite POS H Ur Leukocyte Esterase NEG Urine RBC 0-2 Urine WBC 0-2 Ur Squamous Epith Cells TRACE Urine Bacteria TRACE Ethyl Alcohol COVID-19 ([facility]) Negative COVID-19 Clin Com See Note Blood Type Antibody Screen 07/05/21 06:02 MCV MCH MCHC RDW Plt Count MPV Immature Gran % (Auto) Neut % (Auto) Lymph % (Auto) [place] % (Auto) Eos % (Auto) Baso % (Auto) Lymph # (Auto) [place] # (Auto) Eos # (Auto) Baso # (Auto) Abs Immat Gran (auto) Absolute Neuts (auto) Absolute Nucleated RBC Nucleated RBC % (auto) Anion Gap 12 Estim Creat Clear Calc 81.3 Estimated GFR > 60 Random Glucose Fasting Glucose 107 H Calcium 8.6 D Total Bilirubin Direct Bilirubin AST ALT Alkaline Phosphatase Total Protein Albumin Lipase Urine Color Urine Appearance Urine pH Ur Specific [place] Urine Protein Urine Glucose (UA) Urine Ketones Urine Blood Urine Nitrite Ur Leukocyte Esterase Urine RBC Urine WBC Ur Squamous Epith Cells Urine Bacteria Ethyl Alcohol COVID-19 ([facility]) COVID-19 Clin Com Blood Type Antibody Screen Microbiology Microbiology Results: Microbiology 07/04/21 15:44 Urine Culture - Preliminary Urine clean catch - Clean Catch Midstream Gram negative kar Assessment and Plan (1) Bowel obstruction: Status: Acute Assessment and Plan: 60F presented with abdominal pain abdominal pain ileus vs bowel obstruction s/p NGT, continue IVF, pain control, monitor electrolytes surgery following hypothyroid synthroid crohns mesalamine morbid obesity weight loss recommended dvt prophylaxis - lovenox full code Quality Stroke Does the patient have a stroke diagnosis?: No VTE Prior VTE?: No VTE Risk Level:: Medical - moderate - high VTE Device Contraindication: Treatment Not Indicated VTE Drug Contraindication: N/A - Med Ordered
[2021-07-05] MEDS: 0.9 % Sodium Chloride Flush 3 ML SYRINGE IVFLUSH (20:22)
[2021-07-06] VITALS (8 sets, daily range): BP systolic 121–143; BP diastolic 60–76; PULSE 74–86; RESP 16–20; TEMP 36.7–37.3; O2SAT 91–94
[2021-07-06] MEDS: Morphine Sulfate 2 MG/ML CARTRIDGE IVPUSH ×4 (02:27→19:00)
[2021-07-06] MEDS: Lactated Ringers 1,000 ML 80 ML IVCONT ×2 (04:27→14:54)
[2021-07-06] MEDS: Pantoprazole Sodium 40 MG/10 ML VIAL IVPUSH (05:55)
[2021-07-06] MEDS: Levothyroxine Sodium 100 MCG TABLET PO (05:55)
[2021-07-06 06:27] LABS: Anion Gap 15 (12-20); Blood Urea Nitrogen 10 mg/dL (9-16); Calcium 8.9 mg/dL (8.4-10.2); Carbon Dioxide 22 mmol/L (22-29); Chloride 107 mmol/L (96-108); Creatinine Clr Calc Pharmacy 82.2; Estimated Glomerular Filt Rate > 60; Glucose Fasting 86 mg/dL (60-99); Potassium 4.2 mmol/L (3.3-5.1); Sodium 140 mmol/L (135-145)
[2021-07-06 06:46] LABS: Hematocrit 36.7 % (37-47); Hemoglobin 11.3 g/dl (12.0-16.0); Mean Corpuscular HGB Conc 30.8 g/dl (31.0-35.0); Mean Corpuscular Hemoglobin 23.5 pg (27.0-33.0); Mean Corpuscular Volume 76.5 fL (80-98); Mean Platelet Volume 10.2 fL (9.4-12.3); Platelet Count 266 X10*3/uL (160-400); Red Cell Distribution Width 17.2 % (11.0-16.0); White Blood Count 12.9 X10*3/uL (4.8-10.8)
[2021-07-06] MEDS: Enoxaparin Sodium 40 MG/0.4 ML SYRINGE SUBCUT (08:28)
--- NOTE | 2021-07-06 09:16 | P.PNIM_ITS ---
Subjective Subjective Date of Service: 07/06/21 Interval History: cc: abd pain interval history: still with pain, no appetite Cardiovascular Cardiovascular: Reports no additional cardiovascular complaints Respiratory Respiratory: Reports no additional respiratory complaints Physical Exam Vital Signs: Vital Signs: Last Vital Signs Temp 98.3 F 07/06/21 07:23 Pulse 82 07/06/21 07:23 Resp 17 07/06/21 07:23 BP 143/65 H 07/06/21 07:23 Pulse Ox 91 L 07/06/21 07:23 Body Mass Index 39.8 General: AO X 3, in discomfort Resp:? CTA bilateral, no accessory muscles used CVS: S1,S2,RRR GI: soft, non tender, mildly distended, +bs Neuro:? motor grossly intact, alert Psych: appropriate affect, appropriate insight? Objective Data Active Medications Acetaminophen (Acetaminophen 325 Mg Tablet) 650 mg PO Q6H PRN PRN Reason: Pain, Mild (Pain Scale 1-3) Enoxaparin Sodium (Enoxaparin Sodium 40 Mg/0.4 Ml Syringe) 40 mg SUBCUT DAILY [facility] Last Admin: 07/06/21 08:28 Dose: 40 mg Documented by: MAITE Lactated Ringer's (Lr) 1,000 mls @ 80 mls/hr IVCONT .[id number] [facility] Last Admin: 07/06/21 04:27 Dose: 80 mls/hr Documented by: BERENICE Levothyroxine Sodium (Levothyroxine Sodium 100 Mcg Tablet) 100 mcg PO DAILY@0630 [facility] Last Admin: 07/06/21 05:55 Dose: 100 mcg Documented by: BERENICE Mesalamine (Mesalamine 250 Mg Capsule.Er) 1,000 mg PO QID [facility] Last Admin: 07/06/21 08:29 Dose: Not Given Documented by: MAITE Non-Admin Reason: Patient Refused Mirtazapine (Mirtazapine 7.5 Mg Tablet) 7.5 mg PO BEDTIME PRN PRN Reason: Sleep Morphine Sulfate (Morphine Sulfate 2 Mg/Ml Cartridge) 2 mg IVPUSH Q4H PRN; Protocol PRN Reason: Pain, Severe (Pain Scale 7-10) Last Admin: 07/06/21 08:25 Dose: 2 mg Documented by: MAITE Ondansetron HCl (Ondansetron Hcl 4 Mg/2 Ml Vial) 4 mg IVPUSH Q8H PRN PRN Reason: Nausea and Vomiting Last Admin: 07/04/21 21:36 Dose: 4 mg Documented by: HARPREET Pantoprazole Sodium (Pantoprazole Sodium 40 Mg/10 Ml Vial) 40 mg IVPUSH DAILY@0630 [facility] Last Admin: 07/06/21 05:55 Dose: 40 mg Documented by: BERENICE Pharmacy Consult (Consult Rx Perform Med Rec) 1 each MISCELLANE ONCE PRN PRN Reason: Consult order Sodium Chloride (0.9 % Sodium Chloride Flush 3 Ml Syringe) 3 ml IVFLUSH QSHIFT [facility] Last Admin: 07/06/21 07:08 Dose: Not Given Documented by: MAITE Non-Admin Reason: IV Running Labs CBC & Chem 7: 07/06/21 05:49 07/06/21 05:49 Labs: Laboratory Results - last 24 hr 07/06/21 07/06/21 05:49 05:49 MCV 76.5 L MCH 23.5 L MCHC 30.8 L RDW 17.2 H Plt Count 266 MPV 10.2 Absolute Nucleated RBC 0.000 Nucleated RBC % (auto) 0.0 Anion Gap 15 Estim Creat Clear Calc 82.2 Estimated GFR > 60 Fasting Glucose 86 Calcium 8.9 Microbiology Microbiology Results: Microbiology 07/04/21 15:44 Urine Culture - Final Urine clean catch - Clean Catch Midstream Escherichia coli Assessment and Plan (1) Bowel obstruction: Status: Acute Assessment and Plan: 60F presented with abdominal pain abdominal pain ileus vs bowel obstruction has NGT, continues to drain continue IVF, pain control, monitor electrolytes surgery following hypothyroid synthroid crohns mesalamine morbid obesity weight loss recommended dvt prophylaxis - lovenox full code Quality Stroke Does the patient have a stroke diagnosis?: No VTE Prior VTE?: No VTE Risk Level:: Medical - moderate - high VTE Device Contraindication: Treatment Not Indicated VTE Drug Contraindication: N/A - Med Ordered
--- NOTE | 2021-07-06 10:17 | MHC.CM.PN ---
EMR REVIEWED, PT ADMITTED W/OBSTRUCTION PER SURGICAL SEGMENTAL ILEUS AND POSSIBLE OBSTRUCTION, CM MET W/PT WHO IS GROGGY, CONT'S TO HAVE NG TUBE IN PLACE, PT REPORTS SHE LIVES W/HER MPTHER, PT DENIES USE OF DME AND HOME SERVICES, PT DENIES ANTICIPATING ANY ADDITIONAL NEEDS AFTER D/C, PT VERIFIES PCP BERNADETTE PALMA AND HCP ON FILE FROM PREVIOUS ADMIT. D/C PLAN: HOME NO SERVICES, FRIEND FOR TRANSPORT
--- NOTE | 2021-07-06 14:27 | P.PNGS_ITS ---
Subjective Subjective Date of Service: 07/07/21 Interval history: Says she still has pain However states that she started to pass flatus Denies nausea Physical Exam Vital Signs: Vital Signs: Last Vital Signs Temp 98.1 F 07/06/21 11:13 Pulse 74 07/06/21 11:13 Resp 16 07/06/21 11:13 BP 124/65 07/06/21 11:13 Pulse Ox 93 07/06/21 11:13 Body Mass Index 39.8 Const: Other: Chemistry 07/04/21 07/05/21 07/06/21 11:20 06:02 05:49 Sodium 140 140 140 Potassium 4.2 4.0 4.2 Carbon Dioxide 18 L 21 L 22 BUN 15 12 10 Creatinine 1.15 0.85 0.84 Calcium 9.2 8.6 D 8.9 Hematology 07/04/21 07/04/21 07/05/21 11:15 11:20 06:02 WBC 8.9 9.7 9.2 Hgb 12.3 12.0 9.8 L Plt Count 379 450 H 322 D 07/06/21 05:49 WBC 12.9 H Hgb 11.3 L Plt Count 266 Urinalysis 07/04/21 15:22 Urine Color YELLOW Urine Appearance CLEAR Urine pH 5.5 Ur Specific Gravit y 1.015 Urine Protein TRACE Urine Glucose (UA) NEG Urine Ketones NEG Urine Blood NEG Urine Nitrite POS H Ur Leukocyte [place] NEG Urine RBC 0-2 Urine WBC 0-2 Ur Squamous Epith Cells TRACE General: no acute distress Resp: Effort & Inspection: normal respiratory effort Cardio: Rate: regular rate GI: Other: Mild diffuse tenderness Palpation (GI): Soft to palpation, not firm and no guarding Procedures Date of Service Date of Service: 07/06/21 Progress Note: A&P Assessment and plan (1) Abdominal pain: Status: Acute Assessment and Plan: Likely partial small-bowel obstruction versus ileus She says that this started after colonoscopy last Monday Still with pain although she states she has started passing flatus Would keep NG tube in for now Abdomen soft Plan to do follow-up x-ray tomorrow Fall Risk Details Current Medications: Current Medications Acetaminophen (Acetaminophen 325 Mg Tablet) 650 mg PO Q6H PRN PRN Reason: Pain, Mild (Pain Scale 1-3) Enoxaparin Sodium (Enoxaparin Sodium 40 Mg/0.4 Ml Syringe) 40 mg SUBCUT DAILY [facility] Last Admin: 07/06/21 08:28 Dose: 40 mg Documented by: Lactated Ringer's (Lr) 1,000 mls @ 80 mls/hr IVCONT .[id number] [facility] Last Admin: 07/06/21 04:27 Dose: 80 mls/hr Documented by: Levothyroxine Sodium (Levothyroxine Sodium 100 Mcg Tablet) 100 mcg PO DAILY@0630 [facility] Last Admin: 07/06/21 05:55 Dose: 100 mcg Documented by: Mesalamine (Mesalamine 250 Mg Capsule.Er) 1,000 mg PO QID [facility] Last Admin: 07/06/21 12:30 Dose: Not Given Documented by: Mirtazapine (Mirtazapine 7.5 Mg Tablet) 7.5 mg PO BEDTIME PRN PRN Reason: Sleep Morphine Sulfate (Morphine Sulfate 2 Mg/Ml Cartridge) 2 mg IVPUSH Q4H PRN; Protocol PRN Reason: Pain, Severe (Pain Scale 7-10) Last Admin: 07/06/21 12:53 Dose: 2 mg Documented by: Ondansetron HCl (Ondansetron Hcl 4 Mg/2 Ml Vial) 4 mg IVPUSH Q8H PRN PRN Reason: Nausea and Vomiting Last Admin: 07/04/21 21:36 Dose: 4 mg Documented by: Pantoprazole Sodium (Pantoprazole Sodium 40 Mg/10 Ml Vial) 40 mg IVPUSH DAILY@0630 [facility] Last Admin: 07/06/21 05:55 Dose: 40 mg Documented by: Pharmacy Consult (Consult Rx Perform Med Rec) 1 each MISCELLANE ONCE PRN PRN Reason: Consult order Sodium Chloride (0.9 % Sodium Chloride Flush 3 Ml Syringe) 3 ml IVFLUSH QSHIFT [facility] Last Admin: 07/06/21 13:48 Dose: Not Given Documented by: Time Spent With Patient Time: Total time spent is greater than 50% in coordination of care (as documented) at patient's floor/unit and/or counseling patient: Time with patient: 15 - 24 minutes Quality Stroke Does the patient have a stroke diagnosis?: No VTE Prior VTE?: No VTE Risk Level:: Medical - moderate - high VTE Device Contraindication: Treatment Not Indicated VTE Drug Contraindication: N/A - Med Ordered
[2021-07-06] MEDS: 0.9 % Sodium Chloride Flush 3 ML SYRINGE IVFLUSH (19:00)
[2021-07-07] MEDS: Lactated Ringers 1,000 ML 80 ML IVCONT (03:15)
[2021-07-07 04:00] VITALS: BP 136/74; PULSE 92; RESP 18; TEMP 36.1; O2SAT 94
[2021-07-07 04:29] LABS: Hematocrit 32.3 % (37-47); Hemoglobin 10.2 g/dl (12.0-16.0); Mean Corpuscular HGB Conc 31.6 g/dl (31.0-35.0); Mean Corpuscular Hemoglobin 23.7 pg (27.0-33.0); Mean Corpuscular Volume 75.1 fL (80-98); Mean Platelet Volume 9.6 fL (9.4-12.3); Platelet Count 343 X10*3/uL (160-400); Red Cell Distribution Width 17.1 % (11.0-16.0); White Blood Count 11.5 X10*3/uL (4.8-10.8)
[2021-07-07 04:51] LABS: Anion Gap 19 (12-20); Blood Urea Nitrogen 9 mg/dL (9-16); Calcium 8.7 mg/dL (8.4-10.2); Carbon Dioxide 19 mmol/L (22-29); Chloride 106 mmol/L (96-108); Creatinine Clr Calc Pharmacy 89.7; Estimated Glomerular Filt Rate > 60; Glucose Fasting 83 mg/dL (60-99); Potassium 3.6 mmol/L (3.3-5.1); Sodium 140 mmol/L (135-145)
[2021-07-07] MEDS: Levothyroxine Sodium 100 MCG TABLET PO (05:34)
--- NOTE | 2021-07-07 05:57 | PC.NURSE ---
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 pt stated that the last time she was here she needed a picc line because they were unable to get IV access. [employer] message sent to Dr. Smith to make her aware. Dr. Smith aware and will pass along to day team regarding pt being a candidate for midline or picc line placement.
[2021-07-07 07:17] VITALS: BP 116/63; PULSE 79; RESP 17; TEMP 37; O2SAT 95
[2021-07-07] MEDS: Enoxaparin Sodium 40 MG/0.4 ML SYRINGE SUBCUT (07:57)
--- NOTE | 2021-07-07 08:25 | PC.NURSE ---
Skin assessment completed. Patient has a midline surgical incision well approximated, yady intact. No other skin issues noted at this time.
--- NOTE | 2021-07-07 09:39 | P.PNGS_ITS ---
Subjective Subjective Date of Service: 07/07/21 Interval history: She still feels sore on the abdomen although improving Says he has been passing more flatus Physical Exam Vital Signs: Vital Signs: Last Vital Signs Temp 98.6 F 07/07/21 07:17 Pulse 79 07/07/21 07:17 Resp 17 07/07/21 07:17 BP 116/63 07/07/21 07:17 Pulse Ox 95 07/07/21 07:17 Body Mass Index 39.8 Const: General: comfortable and no acute distress Resp: Effort & Inspection: normal respiratory effort Cardio: Rate: regular rate GI: Other: Soft, mild diffuse tenderness, no guarding rebound, obese, difficult to tell whether she has distended Procedures Date of Service Date of Service: 07/07/21 Progress Note: A&P Assessment and plan (1) Abdominal pain: Status: Acute Assessment and Plan: Abdominal pain improving Passing flatus Will check KUB for follow-up Exam benign 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 as 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 Fall Risk Details Current Medications: Current Medications Acetaminophen (Acetaminophen 325 Mg Tablet) 650 mg PO Q6H PRN PRN Reason: Pain, Mild (Pain Scale 1-3) Enoxaparin Sodium (Enoxaparin Sodium 40 Mg/0.4 Ml Syringe) 40 mg SUBCUT DAILY [facility] Last Admin: 07/07/21 07:57 Dose: 40 mg Documented by: Lactated Ringer's (Lr) 1,000 mls @ 80 mls/hr IVCONT .[id number] [facility] Last Admin: 07/07/21 03:15 Dose: 80 mls/hr Documented by: Levothyroxine Sodium (Levothyroxine Sodium 100 Mcg Tablet) 100 mcg PO DAILY@0630 [facility] Last Admin: 07/07/21 05:34 Dose: 100 mcg Documented by: Mesalamine (Mesalamine 250 Mg Capsule.Er) 1,000 mg PO QID [facility] Last Admin: 07/07/21 08:20 Dose: Not Given Documented by: Mirtazapine (Mirtazapine 7.5 Mg Tablet) 7.5 mg PO BEDTIME PRN PRN Reason: Sleep Morphine Sulfate (Morphine Sulfate 2 Mg/Ml Cartridge) 2 mg IVPUSH Q4H PRN; Protocol PRN Reason: Pain, Severe (Pain Scale 7-10) Last Admin: 07/06/21 19:00 Dose: 2 mg Documented by: Ondansetron HCl (Ondansetron Hcl 4 Mg/2 Ml Vial) 4 mg IVPUSH Q8H PRN PRN Reason: Nausea and Vomiting Last Admin: 07/04/21 21:36 Dose: 4 mg Documented by: Pantoprazole Sodium (Pantoprazole Sodium 40 Mg/10 Ml Vial) 40 mg IVPUSH DAILY@0630 [facility] Last Admin: 07/07/21 05:36 Dose: Not Given Documented by: Pharmacy Consult (Consult Rx Perform Med Rec) 1 each MISCELLANE ONCE PRN PRN Reason: Consult order Sodium Chloride (0.9 % Sodium Chloride Flush 3 Ml Syringe) 3 ml IVFLUSH QSHIFT [facility] Last Admin: 07/07/21 09:23 Dose: Not Given Documented by: Time Spent With Patient Time: Total time spent is greater than 50% in coordination of care (as documented) at patient's floor/unit and/or counseling patient: Time with patient: 15 - 24 minutes Quality Stroke Does the patient have a stroke diagnosis?: No VTE Prior VTE?: No VTE Risk Level:: Medical - moderate - high VTE Device Contraindication: Treatment Not Indicated VTE Drug Contraindication: N/A - Med Ordered
[2021-07-07] MEDS: Morphine Sulfate 4 MG/ML CARTRIDGE SUBCUT ×3 (11:17→20:46)
[2021-07-07 11:25] VITALS: BP 140/61; PULSE 76; RESP 19; TEMP 36.8; O2SAT 96
--- NOTE | 2021-07-07 11:27 | MHC.CM.PN ---
EMR REVIEWED, NG TUBE REMAINS IN PLACE, PT CONT'S TO RECEIVE IVF AND IV PAIN MEDS, PER HOSPITALIST PLAN IS TO RECONSULT W/SURGICAL, NO PLAN FOR D/C TODAY.
--- NOTE | 2021-07-07 12:53 | HO.PM.IMPN ---
Subjective Subjective Date of Service: 07/07/21 Interval History: Remains tolerant of NG tube overnight; draining darkish brown liquid. Patient states passing some flatus; no bowel movement. Abdominal pain mild discomfort Review of Systems No chest pain No shortness of breath No nausea vomiting diarrhea Physical Exam Vital Signs: Vital Signs: Last Vital Signs Temp 98.2 F 07/07/21 11:25 Pulse 76 07/07/21 11:25 Resp 19 07/07/21 11:25 BP 140/61 H 07/07/21 11:25 Pulse Ox 96 07/07/21 11:25 Body Mass Index 39.8 Const: Other: Appears comfortable no acute distress HENMT: Other: Membranes dry; oropharynx clear Resp: Other: Clear to auscultation all vázquez; no rales rhonchi or wheezes Cardio: Other: No S4; positive S1-S2; no S3 murmurs of gallops GI: Other: Soft nontender with quiet bowel sounds. No peritoneal signs Extrem: Other: No edema bilaterally Objective Data Active Medications Acetaminophen (Acetaminophen 325 Mg Tablet) 650 mg PO Q6H PRN PRN Reason: Pain, Mild (Pain Scale 1-3) Enoxaparin Sodium (Enoxaparin Sodium 40 Mg/0.4 Ml Syringe) 40 mg SUBCUT DAILY [facility] Last Admin: 07/07/21 07:57 Dose: 40 mg Documented by: TAO Lactated Ringer's (Lr) 1,000 mls @ 80 mls/hr IVCONT .[id number] [facility] Last Admin: 07/07/21 03:15 Dose: 80 mls/hr Documented by: JOSE Levothyroxine Sodium (Levothyroxine Sodium 100 Mcg Tablet) 100 mcg PO DAILY@0630 [facility] Last Admin: 07/07/21 05:34 Dose: 100 mcg Documented by: JOSE Mesalamine (Mesalamine 250 Mg Capsule.Er) 1,000 mg PO QID [facility] Last Admin: 07/07/21 08:20 Dose: Not Given Documented by: TAO Non-Admin Reason: NPO Mirtazapine (Mirtazapine 7.5 Mg Tablet) 7.5 mg PO BEDTIME PRN PRN Reason: Sleep Morphine Sulfate (Morphine Sulfate 2 Mg/Ml Cartridge) 2 mg IVPUSH Q4H PRN; Protocol PRN Reason: Pain, Severe (Pain Scale 7-10) Last Admin: 07/06/21 19:00 Dose: 2 mg Documented by: JOSE Morphine Sulfate (Morphine Sulfate 4 Mg/Ml Cartridge) 4 mg SUBCUT Q4H PRN; Protocol PRN Reason: Pain, Mild (Pain Scale 1-3) Last Admin: 07/07/21 11:17 Dose: 4 mg Documented by: TAO Ondansetron HCl (Ondansetron Hcl 4 Mg/2 Ml Vial) 4 mg IVPUSH Q8H PRN PRN Reason: Nausea and Vomiting Last Admin: 07/04/21 21:36 Dose: 4 mg Documented by: HARPREET Pantoprazole Sodium (Pantoprazole Sodium 40 Mg/10 Ml Vial) 40 mg IVPUSH DAILY@0630 [facility] Last Admin: 07/07/21 05:36 Dose: Not Given Documented by: JOSE Non-Admin Reason: No Access Pharmacy Consult (Consult Rx Perform Med Rec) 1 each MISCELLANE ONCE PRN PRN Reason: Consult order Sodium Chloride (0.9 % Sodium Chloride Flush 3 Ml Syringe) 3 ml IVFLUSH QSHIFT [facility] Last Admin: 07/07/21 09:23 Dose: Not Given Documented by: TAO Non-Admin Reason: IV Running Labs CBC & Chem 7: 07/07/21 04:08 07/07/21 04:08 Labs: Laboratory Results - last 24 hr 07/07/21 07/07/21 04:08 04:08 MCV 75.1 L MCH 23.7 L MCHC 31.6 RDW 17.1 H Plt Count 343 D MPV 9.6 Absolute Nucleated RBC 0.000 Nucleated RBC % (auto) 0.0 Anion Gap 19 Estim Creat Clear Calc 89.7 Estimated GFR > 60 Fasting Glucose 83 Calcium 8.7 Assessment and Plan (1) Bowel obstruction: Status: Acute Assessment and Plan: 60F with pmh crohns, sbo, recent colonoscopy 07/02/21 with some ulcerations proximal to ileo colic anastamosis, complaining of abdominal pain, heartburn, nasuea, vomitting, abd distension, since colonoscopy. she does report small BMs, including on day of presentation and is passing gas. denies fever, chills, chest pain. in ED CT showed dilated small and large bowel, no transistion point, similar to CT from 2019. NGT was placed with some relief of symptoms. Symptoms improved overnight. For surgery following 1.Abdominal pain Ileus vs bowel obstruction; KUB essentially unchanged from yesterday despite NG tube decompression. Continue the same awaiting surgical input. IV Access challenging; will switch to subcu morphine until line is placed 2.Hypothyroid Continue outpatient thyroid dosing. 3.Crohns Continue mesalamine as ordered DVT prophylaxis - lovenox Full code Quality Stroke Does the patient have a stroke diagnosis?: No VTE Prior VTE?: No VTE Risk Level:: Medical - moderate - high VTE Device Contraindication: Treatment Not Indicated VTE Drug Contraindication: N/A - Med Ordered
[2021-07-07 16:00] VITALS: BP 134/71; PULSE 79; RESP 18; TEMP 36.7; O2SAT 97
--- NOTE | 2021-07-07 18:52 | PC.NURSE ---
1800 NGT patent. Ambulating in be. No IV acess. IR attempted midline. will attempt again in AM MD aware/ SC morphine given for pain with eff.
[2021-07-07 19:22] VITALS: BP 131/63; PULSE 79; RESP 18; TEMP 36.3; O2SAT 92
[2021-07-08] VITALS (7 sets, daily range): BP systolic 117–137; BP diastolic 58–67; PULSE 66–75; RESP 14–18; TEMP 36–37.3; O2SAT 92–96
[2021-07-08 05:34] LABS: MANUAL DIFF FLAG NO
[2021-07-08 05:38] LABS: Basophils Percent Auto 0.2 % (0-2); Eosinophils Percent Auto 0.5 % (0-4); Imm Gran Abs Auto 0.04 X10*3/uL (0.00-0.03); Imm Gran Pct Auto 0.5 % (0.0-0.4); Lymphocytes Absolute Auto 1.5 X10*3/uL (1.2-4.9); Lymphocytes Percent Auto 17.4 % (20-40); Mean Corpuscular HGB Conc 32.3 g/dl (31.0-35.0); Mean Corpuscular Hemoglobin 24.3 pg (27.0-33.0); Mean Corpuscular Volume 75.2 fL (80-98); Mean Platelet Volume 9.5 fL (9.4-12.3); Monocytes Absolute Auto 0.6 X10*3/uL (0.1-1.2); Monocytes Percent Auto 7.1 % (2-11); Neutrophils Absolute Auto 6.3 X10*3/uL (2.0-8.3); Neutrophils Percent Auto 74.3 % (45-73); Platelet Count 300 X10*3/uL (160-400); Red Blood Count 4.12 X10*6/uL (4.20-5.50); Red Cell Distribution Width 17.2 % (11.0-16.0); White Blood Count 8.5 X10*3/uL (4.8-10.8)
[2021-07-08 05:56] LABS: Alanine Aminotransferase 14 U/L (0-31); Albumin Level 3.3 g/dL (3.5-5.0); Alkaline Phosphatase 107 U/L (39-117); Anion Gap 17 (12-20); Aspartate Amino Transferase 12 U/L (5-31); Bilirubin Total 0.4 mg/dL (0.0-1.0); Blood Urea Nitrogen 9 mg/dL (9-16); Calcium 8.4 mg/dL (8.4-10.2); Carbon Dioxide 19 mmol/L (22-29); Chloride 109 mmol/L (96-108); Creatinine Clr Calc Pharmacy 93.3; Estimated Glomerular Filt Rate > 60; Glucose Fasting 81 mg/dL (60-99); Potassium 3.6 mmol/L (3.3-5.1); Sodium 141 mmol/L (135-145); Total Protein 6.4 g/dL (6.5-8.0)
[2021-07-08] MEDS: Levothyroxine Sodium 100 MCG TABLET PO (06:23)
[2021-07-08] MEDS: Morphine Sulfate 4 MG/ML CARTRIDGE SUBCUT ×2 (06:36→13:07)
[2021-07-08] MEDS: Enoxaparin Sodium 40 MG/0.4 ML SYRINGE SUBCUT (09:28)
--- NOTE | 2021-07-08 11:54 | P.PNIM_ITS ---
Subjective Subjective Date of Service: 07/08/21 Interval History: Remains tolerant of NG tube overnight; draining darkish brown liquid. Urine growing E coli pansensitive Review of Systems No chest pain No shortness of breath No nausea vomiting diarrhea Physical Exam Vital Signs: Vital Signs: Last Vital Signs Temp 97.6 F 07/08/21 11:50 Pulse 74 07/08/21 11:50 Resp 16 07/08/21 11:50 BP 130/67 07/08/21 11:50 Pulse Ox 96 07/08/21 11:50 Body Mass Index 39.8 Const: Other: Appears comfortable no acute distress HENMT: Other: Membranes dry; oropharynx clear Resp: Other: Clear to auscultation all vázquez; no rales rhonchi or wheezes Cardio: Other: No S4; positive S1-S2; no S3 murmurs of gallops GI: Other: Soft midly tender. QUiet BS Extrem: Other: No edema bilaterally Objective Data Active Medications Acetaminophen (Acetaminophen 325 Mg Tablet) 650 mg PO Q6H PRN PRN Reason: Pain, Mild (Pain Scale 1-3) Enoxaparin Sodium (Enoxaparin Sodium 40 Mg/0.4 Ml Syringe) 40 mg SUBCUT DAILY [facility] Last Admin: 07/08/21 09:28 Dose: 40 mg Documented by: WILLIAM Levothyroxine Sodium (Levothyroxine Sodium 100 Mcg Tablet) 100 mcg PO DAILY @0630 [facility] Last Admin: 07/08/21 06:23 Dose: 100 mcg Documented by: BRIANA Mesalamine (Mesalamine 250 Mg Capsule.Er) 1,000 mg PO QID [facility] Last Admin: 07/08/21 09:28 Dose: Not Given Documented by: WILLIAM Non-Admin Reason: Patient Refused Mirtazapine (Mirtazapine 7.5 Mg Tablet) 7.5 mg PO BEDTIME PRN PRN Reason: Sleep Morphine Sulfate (Morphine Sulfate 2 Mg/Ml Cartridge) 2 mg IVPUSH Q4H PRN; Protocol PRN Reason: Pain, Severe (Pain Scale 7-10) Last Admin: 07/06/21 19:00 Dose: 2 mg Documented by: JOSE Morphine Sulfate (Morphine Sulfate 4 Mg/Ml Cartridge) 4 mg SUBCUT Q4H PRN; Protocol PRN Reason: Pain, Mild (Pain Scale 1-3) Last Admin: 07/08/21 06:36 Dose: 4 mg Documented by: BRIANA Ondansetron HCl (Ondansetron Hcl 4 Mg/2 Ml Vial) 4 mg IVPUSH Q8H PRN PRN Reason: Nausea and Vomiting Last Admin: 07/04/21 21:36 Dose: 4 mg Documented by: HARPREET Pharmacy Consult (Consult Rx Perform Med Rec) 1 each MISCELLANE ONCE PRN PRN Reason: Consult order Sodium Chloride (0.9 % Sodium Chloride Flush 3 Ml Syringe) 3 ml IVFLUSH QSHIFT [facility] Last Admin: 07/08/21 09:29 Dose: Not Given Documented by: WILLIAM Non-Admin Reason: No Access Labs CBC & Chem 7: 07/08/21 05:21 07/08/21 05:21 Labs: Laboratory Results - last 24 hr 07/08/21 07/08/21 05:21 05:21 MCV 75.2 L MCH 24.3 L MCHC 32.3 RDW 17.2 H Plt Count 300 MPV 9.5 Immature Gran % (Auto) 0.5 H Neut % (Auto) 74.3 H Lymph % (Auto) 17.4 L [place] % (Auto) 7.1 Eos % (Auto) 0.5 Baso % (Auto) 0.2 Lymph # (Auto) 1.5 [place] # (Auto) 0.6 Eos # (Auto) 0.0 Baso # (Auto) 0.0 Abs Immat Gran (auto) 0.04 H Absolute Neuts (auto) 6.3 Absolute Nucleated RBC 0.000 Nucleated RBC % (auto) 0.0 Anion Gap 17 Estim Creat Clear Calc 93.3 Estimated GFR > 60 Fasting Glucose 81 Calcium 8.4 Total Bilirubin 0.4 AST 12 ALT 14 Alkaline Phosphatase 107 D Total Protein 6.4 L Albumin 3.3 L D Assessment and Plan (1) Bowel obstruction: Status: Acute (2) Vitamin D deficiency: Status: Acute Assessment and Plan: 60F with pmh crohns, sbo, recent colonoscopy 07/02/21 with some ulcerations pro ximal to ileo colic anastamosis, complaining of abdominal pain, heartburn, nasuea, vomitting, abd distension, since colonoscopy. she does report small BMs, including on day of presentation and is passing gas. denies fever, chills, chest pain. in ED CT showed dilated small and large bowel, no transistion point, similar to CT from 2019. NGT was placed with some relief of symptoms. Symptoms unchanged overnight. 1.Abdominal pain Ileus vs bowel obstruction; KUB pending. Continue the same awaiting surgical input. IV Access challenging; will switch to subcu morphine until line is placed; F sangeeta midline..await PICC 2.EColi UTI( pansensitive) Ceftriaxone 1 g IV Q 24 hour pending PICC line Follow routine labs 3.Hypothyroid Continue outpatient thyroid dosing. 4.Crohns Continue mesalamine as ordered DVT prophylaxis - lovenox Full code Quality Stroke Does the patient have a stroke diagnosis?: No VTE Prior VTE?: No VTE Risk Level:: Medical - moderate - high VTE Device Contraindication: Treatment Not Indicated VTE Drug Contraindication: N/A - Med Ordered
--- NOTE | 2021-07-08 14:57 | HO.MIDLINE_ITS ---
PICC Line Insertion MIDLINE INSERTION Diagnosis: PROLONGED NPO, DIFFICULT IV ACCESS Indication: NEEDS IV ACCESS Pertinent Labs: REVIEWED Technique: Using sterile technique including cap and mask, glove and drape, the LEFT arm was prepped and draped in the usual sterile fashion of full barrier technique with CHG. Following completion of Grant Protocol the skin and soft tissues were anesthetized with 1% Lidocaine plain. Using ultrasound guidance, BASILIC vein access was obtained ON SECOND ATTEMPT BY THIS RN. A SINGLE LUMEN, NON-PASV, (20G X 8CM) MIDLINE was positioned. The procedure was performed in S-272. Ultrasound was used to document vein patency and for needle entry. A formal ultrasound picture was recorded. Vascular Supervisor Treating And Pumping has released the line for use and it is currently dressed with a StatLock, Tegaderm, and CHG disc. Verification has been performed for blood return and line patency. Arm Circumference: 35.5 CM Equipment: Leaky POWERGLIDE PRO MIDLINE Catheter Type: SINGLE LUMEN, NONPASV, (20G X 8CM) Lot #: [id number]
[2021-07-08] MEDS: 0.9 % Sodium Chloride Flush 10 ML SYRINGE 5 ML IVFLUSH ×2 (16:43→22:45)
[2021-07-08] MEDS: Lactated Ringers 500 ML 100 ML IV (16:44)
[2021-07-08] MEDS: cefTRIAXone sodium 1 GM in 0.9 % Sodium Chloride 50 ML IV (20:08)
[2021-07-08] MEDS: Morphine Sulfate 2 MG/ML CARTRIDGE IVPUSH (21:25)
[2021-07-09 03:01] VITALS: RESP 14
[2021-07-09] MEDS: Morphine Sulfate 2 MG/ML CARTRIDGE IVPUSH ×2 (05:03→09:31)
[2021-07-09] MEDS: Levothyroxine Sodium 100 MCG TABLET PO (05:04)
[2021-07-09 06:10] LABS: MANUAL DIFF FLAG NO
[2021-07-09 06:17] LABS: Basophils Percent Auto 0.3 % (0-2); Eosinophils Percent Auto 0.2 % (0-4); Hematocrit 33.3 % (37-47); Hemoglobin 10.4 g/dl (12.0-16.0); Imm Gran Abs Auto 0.04 X10*3/uL (0.00-0.03); Imm Gran Pct Auto 0.4 % (0.0-0.4); Lymphocytes Absolute Auto 1.4 X10*3/uL (1.2-4.9); Lymphocytes Percent Auto 14.3 % (20-40); Mean Corpuscular HGB Conc 31.2 g/dl (31.0-35.0); Mean Corpuscular Hemoglobin 23.5 pg (27.0-33.0); Mean Corpuscular Volume 75.2 fL (80-98); Mean Platelet Volume 9.2 fL (9.4-12.3); Monocytes Absolute Auto 0.6 X10*3/uL (0.1-1.2); Neutrophils Absolute Auto 7.7 X10*3/uL (2.0-8.3); Neutrophils Percent Auto 78.8 % (45-73); Platelet Count 376 X10*3/uL (160-400); Red Blood Count 4.43 X10*6/uL (4.20-5.50); White Blood Count 9.7 X10*3/uL (4.8-10.8)
[2021-07-09 06:36] LABS: Alanine Aminotransferase 11 U/L (0-31); Albumin Level 3.5 g/dL (3.5-5.0); Alkaline Phosphatase 102 U/L (39-117); Anion Gap 18 (12-20); Aspartate Amino Transferase 10 U/L (5-31); Bilirubin Total < 0.2 mg/dL (0.0-1.0); Blood Urea Nitrogen 9 mg/dL (9-16); Calcium 9.1 mg/dL (8.4-10.2); Carbon Dioxide 18 mmol/L (22-29); Chloride 110 mmol/L (96-108); Creatinine Clr Calc Pharmacy 98.7; Estimated Glomerular Filt Rate > 60; Glucose Fasting 86 mg/dL (60-99); Potassium 3.7 mmol/L (3.3-5.1); Sodium 142 mmol/L (135-145); Total Protein 6.8 g/dL (6.5-8.0)
[2021-07-09 07:31] VITALS: BP 122/66; PULSE 69; RESP 15; TEMP 36; O2SAT 93
[2021-07-09] MEDS: Enoxaparin Sodium 40 MG/0.4 ML SYRINGE SUBCUT (09:29)
[2021-07-09] MEDS: 0.9 % Sodium Chloride Flush 3 ML SYRINGE IVFLUSH ×2 (09:29→21:28)
[2021-07-09] MEDS: 0.9 % Sodium Chloride Flush 10 ML SYRINGE 5 ML IVFLUSH ×3 (09:33→21:44)
[2021-07-09 11:56] VITALS: BP 122/63; PULSE 71; RESP 16; TEMP 37.7; O2SAT 94
--- NOTE | 2021-07-09 13:24 | P.PNGS_ITS ---
Subjective Subjective Date of Service: 07/09/21 Interval history: She stated she was passing flatus yesterday Denies flatus this morning Still with some abdominal pain Physical Exam Vital Signs: Vital Signs: Last Vital Signs Temp 99.8 F 07/09/21 11:56 Pulse 71 07/09/21 11:56 Resp 16 07/09/21 11:56 BP 122/63 07/09/21 11:56 Pulse Ox 94 07/09/21 11:56 Body Mass Index 39.8 Const: Other: Laboratory Results WBC 9.7 X10*3/uL (4.8 -10.8) 07/09/21 06:01 RBC 4.43 X10*6/uL (4. 20-5.50) 07/09/21 06:01 Hgb 10.4 g/dl (12.0-1 6.0) L 07/09/21 06:01 Hct 33.3 % (37-47) L 07/09/21 06:01 MCV 75.2 fL (80-98) L 07/09/21 06:01 MCH 23.5 pg (27.0-33. 0) L 07/09/21 06:01 MCHC 31.2 g/dl (31.0-3 5.0) 07/09/21 06:01 RDW 17.0 % (11.0-16.0 ) H 07/09/21 06:01 Plt Count 376 X10*3/uL (160 -400) D 07/09/21 06:01 MPV 9.2 fL (9.4-12.3) L 07/09/21 06:01 Immature Gran % (A uto) 0.4 % (0.0-0.4) 07/09/21 06:01 Neut % (Auto) 78.8 % (45-73) H 07/09/21 06:01 Lymph % (Auto) 14.3 % (20-40) L 07/09/21 06:01 [place] % (Auto) 6.0 % (2-11) 07/09/21 06:01 Eos % (Auto) 0.2 % (0-4) 07/09/21 06:01 Baso % (Auto) 0.3 % (0-2) 07/09/21 06:01 Lymph # (Auto) 1.4 X10*3/uL (1.2 -4.9) 07/09/21 06:01 [place] # (Auto) 0.6 X10*3/uL (0.1 -1.2) 07/09/21 06:01 Eos # (Auto) 0.0 X10*3/uL (0.0 -0.4) 07/09/21 06:01 Baso # (Auto) 0.0 X10*3/uL (0.0 -0.2) 07/09/21 06:01 Abs Immat Gran (au to) 0.04 X10*3/uL (0. 00-0.03) H 07/09/21 06:01 Absolute Neuts (au to) 7.7 X10*3/uL (2.0 -8.3) 07/09/21 06:01 Absolute Nucleated RBC 0.000 X10*3/uL (0 .0-0.012) 07/09/21 06:01 Nucleated RBC % (a uto) 0.0 /100WBC (0.0- 0.2) 07/09/21 06:01 Sodium 142 mmol/L (135-1 45) 07/09/21 06:01 Potassium 3.7 mmol/L (3.3-5 .1) 07/09/21 06:01 Chloride 110 mmol/L (96-10 8) H 07/09/21 06:01 Carbon Dioxide 18 mmol/L (22-29) L 07/09/21 06:01 Anion Gap 18 (12-20) 07/09/21 06:01 BUN 9 mg/dL (9-16) 07/09/21 06:01 Creatinine 0.70 mg/dL (0.5-1 .4) 07/09/21 06:01 Estim Creat Clear Calc 98.7 07/09/21 06:01 Estimated GFR > 60 07/09/21 06:01 Random Glucose 152 mg/dL (60-115 ) H 07/04/21 11:20 Fasting Glucose 86 mg/dL (60-99) 07/09/21 06:01 Calcium 9.1 mg/dL (8.4-10 .2) D 07/09/21 06:01 Total Bilirubin < 0.2 mg/dL (0.0- 1.0) 07/09/21 06:01 Direct Bilirubin 0.3 mg/dL (0.0-0. 5) 07/04/21 11:15 AST 10 U/L (5-31) 07/09/21 06:01 ALT 11 U/L (0-31) 07/09/21 06:01 Alkaline Phosphata se 102 U/L (39-117) 07/09/21 06:01 Total Protein 6.8 g/dL (6.5-8.0 ) 07/09/21 06:01 Albumin 3.5 g/dL (3.5-5.0 ) 07/09/21 06:01 Lipase 9 U/L (8-78) 07/04/21 11:20 Urine Color YELLOW 07/04/21 15:22 Urine Appearance CLEAR 07/04/21 15:22 Urine pH 5.5 (5.0-8.0) 07/04/21 15:22 Ur Specific Gravit y 1.015 (1.005-1.0 25) 07/04/21 15:22 Urine Protein TRACE MG/DL (NEG- TRACE) 07/04/21 15:22 Urine Glucose (UA) NEG MG/DL (NEG) 07/04/21 15:22 Urine Ketones NEG MG/DL (NEG) 07/04/21 15:22 Urine Blood NEG (NEG) 07/04/21 15:22 Urine Nitrite POS (NEG) H 07/04/21 15:22 Ur Leukocyte [place] NEG (NEG) 07/04/21 15:22 Urine RBC 0-2 /HPF (0) 07/04/21 15:22 Urine WBC 0-2 /HPF (0-4) 07/04/21 15:22 Ur Squamous Epith Cells TRACE /LPF 07/04/21 15:22 Urine Bacteria TRACE /LPF 07/04/21 15:22 Ethyl Alcohol < 10 mg/dL 07/04/21 11:15 COVID-19 (SUZAN) Negative (Negati ve) 07/04/21 16:15 COVID-19 Clin Com See Note 07/04/21 16:15 Blood Type A Positive 07/04/21 12:19 Antibody Screen NEGATIVE 07/04/21 12:19 Impressions Abdomen/Pelvis CT 07/04/21 11:00 IMPRESSION: Postsurgical changes of subtotal colectomy and multiple dilated small and large bowel loops, appear similar to prior study dated 06/01/2019. No evidence of any free intraperitoneal air. Chest X-Ray 07/04/21 15:21 IMPRESSION: The tip of the NG tube and proximal most sidehole appear below the diaphragm within the fundus of the stomach. Bilateral clear lungs. KUB X-Ray 07/08/21 08:26 IMPRESSION: No change in small bowel dilatation suggestive of small bowel obstruction. General: comfortable and no acute distress Resp: Effort & Inspection: normal respiratory effort Cardio: Rate: regular rate GI: Other: Obese, mild diffuse tenderness Palpation (GI): Soft to palpation, not firm, nontender and no guarding Procedures Date of Service Date of Service: 07/09/21 Progress Note: A&P Assessment and plan (1) Abdominal pain: Status: Acute Assessment and Plan: Initial CT scan was more consistent with ileus However, she continues to have abdominal pain although less Flatus not consistent Repeat CT scan ordered Abdominal exam otherwise benign NG tube still in place Fall Risk Details Current Medications: Current Medications Acetaminophen (Acetaminophen 325 Mg Tablet) 650 mg PO Q6H PRN PRN Reason: Pain, Mild (Pain Scale 1-3) Enoxaparin Sodium (Enoxaparin Sodium 40 Mg/0.4 Ml Syringe) 40 mg SUBCUT DAILY [facility] Last Admin: 07/09/21 09:29 Dose: 40 mg Documented by: Ceftriaxone Sodium 1 gm/ (Sodium Chloride) 50 mls @ 100 mls/hr IV Q24H [facility] Last Infusion: 07/08/21 22:00 Dose: Infused Documented by: Levothyroxine Sodium (Levothyroxine Sodium 100 Mcg Tablet) 100 mcg PO DAILY@0630 [facility] Last Admin: 07/09/21 05:04 Dose: 100 mcg Documented by: Mesalamine (Mesalamine 250 Mg Capsule.Er) 1,000 mg PO QID [facility] Last Admin: 07/09/21 13:20 Dose: Not Given Documented by: Mirtazapine (Mirtazapine 7.5 Mg Tablet) 7.5 mg PO BEDTIME PRN PRN Reason: Sleep Morphine Sulfate (Morphine Sulfate 2 Mg/Ml Cartridge) 2 mg IVPUSH Q4H PRN; Protocol PRN Reason: Pain, Severe (Pain Scale 7-10) Last Admin: 07/09/21 09:31 Dose: 2 mg Documented by: Morphine Sulfate (Morphine Sulfate 4 Mg/Ml Cartridge) 4 mg SUBCUT Q4H PRN; Protocol PRN Reason: Pain, Mild (Pain Scale 1-3) Last Admin: 07/08/21 13:07 Dose: 4 mg Documented by: Ondansetron HCl (Ondansetron Hcl 4 Mg/2 Ml Vial) 4 mg IVPUSH Q8H PRN PRN Reason: Nausea and Vomiting Last Admin: 07/04/21 21:36 Dose: 4 mg Documented by: Pharmacy Consult (Consult Rx Perform Med Rec) 1 each MISCELLANE ONCE PRN PRN Reason: Consult order Sodium Chloride (0.9 % Sodium Chloride Flush 3 Ml Syringe) 3 ml IVFLUSH QSHIFT [facility] Last Admin: 07/09/21 09:29 Dose: 3 ml Documented by: Sodium Chloride (0.9 % Sodium Chloride Flush 10 Ml Syringe) 5 ml IVFLUSH TID [facility] Last Admin: 07/09/21 09:33 Dose: 5 ml Documented by: Time Spent With Patient Time: Total time spent is greater than 50% in coordination of care (as documented) at patient's floor/unit and/or counseling patient: Time with patient: 15 - 24 minutes Quality Stroke Does the patient have a stroke diagnosis?: No VTE Prior VTE?: No VTE Risk Level:: Medical - moderate - high VTE Device Contraindication: Treatment Not Indicated VTE Drug Contraindication: N/A - Med Ordered
--- NOTE | 2021-07-09 14:03 | HO.PM.IMPN ---
Subjective Subjective Date of Service: 07/09/21 Interval History: Remains tolerant of NG tube overnight; draining darkish brown liquid. Urine growing E coli pansensitive Review of Systems No chest pain No shortness of breath No nausea vomiting diarrhea Physical Exam Vital Signs: Vital Signs: Last Vital Signs Temp 99.8 F 07/09/21 11:56 Pulse 71 07/09/21 11:56 Resp 16 07/09/21 11:56 BP 122/63 07/09/21 11:56 Pulse Ox 94 07/09/21 11:56 Body Mass Index 39.8 Const: Other: Appears comfortable no acute distress HENMT: Other: Membranes dry; oropharynx clear Resp: Other: Clear to auscultation all vázquez; no rales rhonchi or wheezes Cardio: Other: No S4; positive S1-S2; no S3 murmurs of gallops GI: Other: Soft midly tender. QUiet BS Extrem: Other: No edema bilaterally Objective Data Active Medications Acetaminophen (Acetaminophen 325 Mg Tablet) 650 mg PO Q6H PRN PRN Reason: Pain, Mild (Pain Scale 1-3) Enoxaparin Sodium (Enoxaparin Sodium 40 Mg/0.4 Ml Syringe) 40 mg SUBCUT DAILY [facility] Last Admin: 07/09/21 09:29 Dose: 40 mg Documented by: WILLIAM Ceftriaxone Sodium 1 gm/ (Sodium Chloride) 50 mls @ 100 mls/hr IV Q24H [facility] Last Infusion: 07/08/21 22:00 Dose: 100 mls/hr Documented by: HARRIS Levothyroxine Sodium (Levothyroxine Sodium 100 Mcg Tablet) 100 mcg PO DAILY@0630 [facility] Last Admin: 07/09/21 05:04 Dose: 100 mcg Documented by: BRIANNA Mesalamine (Mesalamine 250 Mg Capsule.Er) 1,000 mg PO QID [facility] Last Admin: 07/09/21 13:20 Dose: Not Given Documented by: WILLIAM Non-Admin Reason: Patient Refused Mirtazapine (Mirtazapine 7.5 Mg Tablet) 7.5 mg PO BEDTIME PRN PRN Reason: Sleep Morphine Sulfate (Morphine Sulfate 2 Mg/Ml Cartridge) 2 mg IVPUSH Q4H PRN; Protocol PRN Reason: Pain, Severe (Pain Scale 7-10) Last Admin: 07/09/21 09:31 Dose: 2 mg Documented by: WILLIAM Morphine Sulfate (Morphine Sulfate 4 Mg/Ml Cartridge) 4 mg SUBCUT Q4H PRN; Protocol PRN Reason: Pain, Mild (Pain Scale 1-3) Last Admin: 07/08/21 13:07 Dose: 4 mg Documented by: WILLIAM Ondansetron HCl (Ondansetron Hcl 4 Mg/2 Ml Vial) 4 mg IVPUSH Q8H PRN PRN Reason: Nausea and Vomiting Last Admin: 07/04/21 21:36 Dose: 4 mg Documented by: HARPREET Pharmacy Consult (Consult Rx Perform Med Rec) 1 each MISCELLANE ONCE PRN PRN Reason: Consult order Sodium Chloride (0.9 % Sodium Chloride Flush 3 Ml Syringe) 3 ml IVFLUSH QSHIFT [facility] Last Admin: 07/09/21 09:29 Dose: 3 ml Documented by: WILLIAM Sodium Chloride (0.9 % Sodium Chloride Flush 10 Ml Syringe) 5 ml IVFLUSH TID [facility] Last Admin: 07/09/21 09:33 Dose: 5 ml Documented by: WILLIAM Labs CBC & Chem 7: 07/09/21 06:01 07/09/21 06:01 Labs: Laboratory Results - last 24 hr 07/09/21 07/09/21 06:01 06:01 MCV 75.2 L MCH 23.5 L MCHC 31.2 RDW 17.0 H Plt Count 376 D MPV 9.2 L Immature Gran % (Auto) 0.4 Neut % (Auto) 78.8 H Lymph % (Auto) 14.3 L [place] % (Auto) 6.0 Eos % (Auto) 0.2 Baso % (Auto) 0.3 Lymph # (Auto) 1.4 [place] # (Auto) 0.6 Eos # (Auto) 0.0 Baso # (Auto) 0.0 Abs Immat Gran (auto) 0.04 H Absolute Neuts (auto) 7.7 Absolute Nucleated RBC 0.000 Nucleated RBC % (auto) 0.0 Anion Gap 18 Estim Creat Clear Calc 98.7 Estimated GFR > 60 Fasting Glucose 86 Calcium 9.1 D Total Bilirubin < 0.2 AST 10 ALT 11 Alkaline Phosphatase 102 Total Protein 6.8 Albumin 3.5 Assessment and Plan (1) Bowel obstruction: Status: Acute Assessment and Plan: 60F with pmh crohns, sbo, recent colonoscopy 07/02/21 with some ulcerations proximal to ileo colic anastamosis, complaining of abdominal pain, heartburn, nasuea, vomitting, abd distension, since colonoscopy. she does report small BMs, including on day of presentation and is passing gas. denies fever, chills, chest pain. in ED CT showed dilated small and large bowel, no transistion point, similar to CT from 2019. NGT was placed with some relief of symptoms. Symptoms unchanged overnight. 1.Abdominal pain Ileus vs bowel obstruction; appreciate surgical input. Continues to have NG tube drainage without flatus. CT scan pending 2.EColi UTI( pansensitive) Ceftriaxone 1 g IV Q 24 hour pending PICC line Follow routine labs 3.Hypothyroid Continue outpatient thyroid dosing. 4.Crohns Continue mesalamine as ordered DVT prophylaxis - lovenox Full code Quality Stroke Does the patient have a stroke diagnosis?: No VTE Prior VTE?: No VTE Risk Level:: Medical - moderate - high VTE Device Contraindication: Treatment Not Indicated VTE Drug Contraindication: N/A - Med Ordered
[2021-07-09 15:34] VITALS: BP 139/66; PULSE 79; RESP 17; TEMP 36.4; O2SAT 96
[2021-07-09] MEDS: iohexoL 350 MG/ML 100 ML INFUS..BTL IV (15:45)
[2021-07-09] MEDS: Barium Sulfate Oral (Berry) 450 ML ORAL.SUSP 900 ML PO (15:46)
[2021-07-09] MEDS: Morphine Sulfate 4 MG/ML CARTRIDGE IVPUSH ×2 (17:03→22:19)
[2021-07-09] MEDS: cefTRIAXone sodium 1 GM in 0.9 % Sodium Chloride 50 ML IV (18:32)
[2021-07-09 19:20] VITALS: BP 123/64; PULSE 84; RESP 16; TEMP 37.4; O2SAT 95
[2021-07-09] MEDS: Lactated Ringers 1,000 ML 80 ML IVCONT (22:26)
[2021-07-09 23:32] VITALS: BP 108/62; PULSE 82; RESP 18; TEMP 36.4; O2SAT 95
[2021-07-10] VITALS (7 sets, daily range): BP systolic 115–142; BP diastolic 60–97; PULSE 69–77; RESP 16–20; TEMP 36.2–37.3; O2SAT 93–96
[2021-07-10] MEDS: Morphine Sulfate 4 MG/ML CARTRIDGE IVPUSH ×2 (06:29→20:19)
[2021-07-10] MEDS: Levothyroxine Sodium 100 MCG TABLET PO (06:36)
[2021-07-10] MEDS: Enoxaparin Sodium 40 MG/0.4 ML SYRINGE SUBCUT (07:57)
[2021-07-10 08:07] LABS: MANUAL DIFF FLAG NO
[2021-07-10 08:14] LABS: Basophils Percent Auto 0.4 % (0-2); Eosinophils Percent Auto 0.4 % (0-4); Hematocrit 32.3 % (37-47); Imm Gran Abs Auto 0.06 X10*3/uL (0.00-0.03); Imm Gran Pct Auto 0.7 % (0.0-0.4); Lymphocytes Absolute Auto 1.8 X10*3/uL (1.2-4.9); Lymphocytes Percent Auto 21.8 % (20-40); Mean Corpuscular Hemoglobin 23.1 pg (27.0-33.0); Mean Corpuscular Volume 74.6 fL (80-98); Monocytes Absolute Auto 0.5 X10*3/uL (0.1-1.2); Monocytes Percent Auto 6.6 % (2-11); Neutrophils Absolute Auto 5.7 X10*3/uL (2.0-8.3); Neutrophils Percent Auto 70.1 % (45-73); Platelet Count 317 X10*3/uL (160-400); Red Blood Count 4.33 X10*6/uL (4.20-5.50); White Blood Count 8.1 X10*3/uL (4.8-10.8)
[2021-07-10 08:34] LABS: Alanine Aminotransferase 12 U/L (0-31); Albumin Level 3.4 g/dL (3.5-5.0); Alkaline Phosphatase 111 U/L (39-117); Anion Gap 17 (12-20); Aspartate Amino Transferase 12 U/L (5-31); Bilirubin Total 0.2 mg/dL (0.0-1.0); Blood Urea Nitrogen 10 mg/dL (9-16); Calcium 8.8 mg/dL (8.4-10.2); Carbon Dioxide 18 mmol/L (22-29); Chloride 108 mmol/L (96-108); Creatinine Clr Calc Pharmacy 97.3; Estimated Glomerular Filt Rate > 60; Glucose Random 89 mg/dL (60-115); Potassium 3.7 mmol/L (3.3-5.1); Sodium 139 mmol/L (135-145); Total Protein 6.6 g/dL (6.5-8.0)
--- NOTE | 2021-07-10 10:28 | P.PNIM_ITS ---
Subjective Subjective Date of Service: 07/10/21 Interval History: Remains tolerant of NG tube overnight; draining darkish brown liquid. Small stool this a.m.. No p.o. intake x1 week Review of Systems No chest pain No shortness of breath No nausea vomiting diarrhea Positive flatus Physical Exam Vital Signs: Vital Signs: Last Vital Signs Temp 97.5 F 07/10/21 07:30 Pulse 77 07/10/21 07:30 Resp 16 07/10/21 07:30 BP 115/63 07/10/21 07:30 Pulse Ox 96 07/10/21 07:30 Body Mass Index 39.8 Const: Other: Appears comfortable no acute distress; NG tube in place HENMT: Other: Membranes dry; oropharynx clear Resp: Other: Clear to auscultation all vázquez; no rales rhonchi or wheezes Cardio: Other: No S4; positive S1-S2; no S3 murmurs of gallops GI: Other: Soft midly tender. QUiet BS Neuro: Other: Cranial nerves 2-12 grossly intact as tested. Motor 5/5 all extremities sensation intact. Cognition appropriate Extrem: Other: No edema bilaterally Objective Data Active Medications Acetaminophen (Acetaminophen 325 Mg Tablet) 650 mg PO Q6H PRN PRN Reason: Pain, Mild (Pain Scale 1-3) Enoxaparin Sodium (Enoxaparin Sodium 40 Mg/0.4 Ml Syringe) 40 mg SUBCUT DAILY [facility] Last Admin: 07/10/21 07:57 Dose: 40 mg Documented by: LACY Ceftriaxone Sodium 1 gm/ (Sodium Chloride) 50 mls @ 100 mls/hr IV Q24H [facility] Last Infusion: 07/09/21 19:34 Dose: 0 mls/hr Documented by: DOMENICO Lactated Ringer's (Lr) 1,000 mls @ 80 mls/hr IVCONT .[id number] [facility] Last Admin: 07/09/21 22:26 Dose: 80 mls/hr Documented by: DOMENICO Levothyroxine Sodium (Levothyroxine Sodium 100 Mcg Tablet) 100 mcg PO DAILY@0630 [facility] Last Admin: 07/10/21 06:36 Dose: 100 mcg Documented by: URI Mesalamine (Mesalamine 250 Mg Capsule.Er) 1,000 mg PO QID [facility] Last Admin: 07/10/21 07:52 Dose: Not Given Documented by: LACY Non-Admin Reason: NPO Mirtazapine (Mirtazapine 7.5 Mg Tablet) 7.5 mg PO BEDTIME PRN PRN Reason: Sleep Morphine Sulfate (Morphine Sulfate 4 Mg/Ml Cartridge) 4 mg SUBCUT Q4H PRN; Protocol PRN Reason: Pain, Mild (Pain Scale 1-3) Last Admin: 07/08/21 13:07 Dose: 4 mg Documented by: WILLIAM Morphine Sulfate (Morphine Sulfate 4 Mg/Ml Cartridge) 4 mg IVPUSH Q4H PRN; Protocol PRN Reason: Pain, Moderate (Pain Scale 4-6 Last Admin: 07/10/21 06:29 Dose: 4 mg Documented by: URI Ondansetron HCl (Ondansetron Hcl 4 Mg/2 Ml Vial) 4 mg IVPUSH Q8H PRN PRN Reason: Nausea and Vomiting Last Admin: 07/04/21 21:36 Dose: 4 mg Documented by: HARPREET Pharmacy Consult (Consult Rx Perform Med Rec) 1 each MISCELLANE ONCE PRN PRN Reason: Consult order Sodium Chloride (0.9 % Sodium Chloride Flush 3 Ml Syringe) 3 ml IVFLUSH QSHIFT [facility] Last Admin: 07/10/21 07:57 Dose: Not Given Documented by: LACY Non-Admin Reason: IV Running Sodium Chloride (0.9 % Sodium Chloride Flush 10 Ml Syringe) 5 ml IVFLUSH TID [facility] Last Admin: 07/10/21 07:56 Dose: Not Given Documented by: LACY Non-Admin Reason: IV Running Labs CBC & Chem 7: 07/10/21 07:38 07/10/21 07:38 Labs: Laboratory Results - last 24 hr 07/10/21 07/10/21 07:38 07:38 MCV 74.6 L MCH 23.1 L MCHC 31.0 RDW 17.0 H Plt Count 317 MPV 10.0 Immature Gran % (Auto) 0.7 H Neut % (Auto) 70.1 Lymph % (Auto) 21.8 [place] % (Auto) 6.6 Eos % (Auto) 0.4 Baso % (Auto) 0.4 Lymph # (Auto) 1.8 [place] # (Auto) 0.5 Eos # (Auto) 0.0 Baso # (Auto) 0.0 Abs Immat Gran (auto) 0.06 H Absolute Neuts (auto) 5.7 Absolute Nucleated RBC 0.000 Nucleated RBC % (auto) 0.0 Anion Gap 17 Estim Creat Clear Calc 97.3 Estimated GFR > 60 Random Glucose 89 Calcium 8.8 Total Bilirubin 0.2 AST 12 ALT 12 Alkaline Phosphatase 111 Total Protein 6.6 Albumin 3.4 L Assessment and Plan (1) Abdominal pain: Status: Acute (2) Bowel obstruction: Status: Acute Assessment and Plan: 60F with pmh crohns, sbo, recent colonoscopy 07/02/21 with some ulcerations proximal to ileo colic anastastamosis; admitted 07/04/2021 secondary to abdominal pain and nausea. Imaging consistent with persistent ileus per surgery. Small bowel movement today however no p.o. intake 6 days 1.Abdominal pain Ileus vs bowel obstruction; appreciate surgical input. Continues to have NG tube drainage without flatus. Given NPO status consider TPN at this time. Will discuss with surgery 2.EColi UTI( pansensitive) Ceftriaxone 1 g IV Q 24 hour Follow routine labs 3.Hypothyroid Continue outpatient thyroid dosing. 4.Crohns Continue mesalamine as ordered DVT prophylaxis - lovenox Full code Quality Stroke Does the patient have a stroke diagnosis?: No VTE Prior VTE?: No VTE Risk Level:: Medical - moderate - high VTE Device Contraindication: Treatment Not Indicated VTE Drug Contraindication: N/A - Med Ordered
[2021-07-10] MEDS: Lactated Ringers 1,000 ML 80 ML IVCONT (11:07)
[2021-07-10 14:01] LABS: Magnesium 1.8 mg/dL (1.6-2.6); Phosphorus 4.3 mg/dL (2.7-4.5)
[2021-07-10] MEDS: Morphine Sulfate 4 MG/ML CARTRIDGE SUBCUT (14:12)
[2021-07-10] MEDS: Lactated Ringers 1,000 ML 125 ML IVCONT (17:26)
[2021-07-10] MEDS: cefTRIAXone sodium 1 GM in 0.9 % Sodium Chloride 50 ML IV (19:58)
[2021-07-10] MEDS: Mesalamine 250 MG CAPSULE.ER 1000 MG PO (19:59)
--- NOTE | 2021-07-10 23:50 | PM.PNGS ---
Subjective Subjective Date of Service: 07/10/21 Interval history: pt asking for ng to be removed. passing a little gas, no abdo pain Physical Exam Vital Signs: Vital Signs: Last Vital Signs Temp 97.1 F 07/10/21 23:25 Pulse 75 07/10/21 23:25 Resp 20 07/10/21 23:25 BP 142/65 H 07/10/21 23:25 Pulse Ox 95 07/10/21 23:25 Body Mass Index 39.8 GI: Other: soft nondistended and some bowel sounds, nontender Procedures Date of Service Date of Service: 07/10/21 Progress Note: A&P Assessment and plan (1) Bowel obstruction: Status: Acute Assessment and Plan: 60 yo female with psbo/ileus - repeat ct scan showing improvement of sb distension and recent cscope showing ileo-colic anastamosis with ulcers at 30 cm. plan to clamp ng trial and clears around it. if does ok will dc ng and slow advancement of po intake. ? recommend po erythromycin trial to encourage sb peristalsis. disscussed with hospitalist team Fall Risk Details Current Medications: Current Medications Acetaminophen (Acetaminophen 325 Mg Tablet) 650 mg PO Q6H PRN PRN Reason: Pain, Mild (Pain Scale 1-3) Enoxaparin Sodium (Enoxaparin Sodium 40 Mg/0.4 Ml Syringe) 40 mg SUBCUT DAILY [facility] Last Admin: 07/10/21 07:57 Dose: 40 mg Documented by: Ceftriaxone Sodium 1 gm/ (Sodium Chloride) 50 mls @ 100 mls/hr IV Q24H [facility] Last Infusion: 07/10/21 21:27 Dose: Infused Documented by: Lactated Ringer's (Lr) 1,000 mls @ 125 mls/hr IVCONT .Q8H [facility] Last Admin: 07/10/21 17:26 Dose: 125 mls/hr Documented by: Levothyroxine Sodium (Levothyroxine Sodium 100 Mcg Tablet) 100 mcg PO DAILY@0630 [facility] Last Admin: 07/10/21 06:36 Dose: 100 mcg Documented by: Mesalamine (Mesalamine 250 Mg Capsule.Er) 1,000 mg PO QID [facility] Last Admin: 07/10/21 19:59 Dose: 1,000 mg Documented by: Mirtazapine (Mirtazapine 7.5 Mg Tablet) 7.5 mg PO BEDTIME PRN PRN Reason: Sleep Morphine Sulfate (Morphine Sulfate 4 Mg/Ml Cartridge) 4 mg SUBCUT Q4H PRN; Protocol PRN Reason: Pain, Mild (Pain Scale 1-3) Last Admin: 07/10/21 14:12 Dose: 4 mg Documented by: Morphine Sulfate (Morphine Sulfate 4 Mg/Ml Cartridge) 4 mg IVPUSH Q4H PRN; Protocol PRN Reason: Pain, Moderate (Pain Scale 4-6 Last Admin: 07/10/21 20:19 Dose: 4 mg Documented by: Ondansetron HCl (Ondansetron Hcl 4 Mg/2 Ml Vial) 4 mg IVPUSH Q8H PRN PRN Reason: Nausea and Vomiting Last Admin: 07/04/21 21:36 Dose: 4 mg Documented by: Pharmacy Consult (Consult Rx Perform Med Rec) 1 each MISCELLANE ONCE PRN PRN Reason: Consult order Sodium Chloride (0.9 % Sodium Chloride Flush 3 Ml Syringe) 3 ml IVFLUSH QSHIFT [facility] Last Admin: 07/10/21 15:25 Dose: Not Given Documented by: Sodium Chloride (0.9 % Sodium Chloride Flush 10 Ml Syringe) 5 ml IVFLUSH TID [facility] Last Admin: 07/10/21 19:59 Dose: Not Given Documented by: Time Spent With Patient Time: Total time spent is greater than 50% in coordination of care (as documented) at patient's floor/unit and/or counseling patient: Time with patient: 15 - 24 minutes Quality Stroke Does the patient have a stroke diagnosis?: No VTE Prior VTE?: No VTE Risk Level:: Medical - moderate - high VTE Device Contraindication: Treatment Not Indicated VTE Drug Contraindication: N/A - Med Ordered
[2021-07-11] VITALS (7 sets, daily range): BP systolic 116–156; BP diastolic 64–93; PULSE 60–76; RESP 18; TEMP 36.2–37; O2SAT 94–97
[2021-07-11] MEDS: Morphine Sulfate 4 MG/ML CARTRIDGE IVPUSH ×2 (01:22→23:18)
[2021-07-11] MEDS: Lactated Ringers 1,000 ML 125 ML IVCONT ×3 (03:35→20:11)
[2021-07-11 05:27] LABS: MANUAL DIFF FLAG NO
[2021-07-11 05:42] LABS: Basophils Percent Auto 0.5 % (0-2); Eosinophils Percent Auto 0.5 % (0-4); Hematocrit 31.2 % (37-47); Hemoglobin 9.4 g/dl (12.0-16.0); Imm Gran Abs Auto 0.06 X10*3/uL (0.00-0.03); Lymphocytes Absolute Auto 2.4 X10*3/uL (1.2-4.9); Lymphocytes Percent Auto 39.4 % (20-40); Mean Corpuscular HGB Conc 30.1 g/dl (31.0-35.0); Mean Corpuscular Hemoglobin 23.2 pg (27.0-33.0); Mean Corpuscular Volume 76.8 fL (80-98); Mean Platelet Volume 9.2 fL (9.4-12.3); Monocytes Absolute Auto 0.4 X10*3/uL (0.1-1.2); Monocytes Percent Auto 6.4 % (2-11); Neutrophils Absolute Auto 3.2 X10*3/uL (2.0-8.3); Neutrophils Percent Auto 52.2 % (45-73); Platelet Count 339 X10*3/uL (160-400); Red Blood Count 4.06 X10*6/uL (4.20-5.50); White Blood Count 6.1 X10*3/uL (4.8-10.8)
[2021-07-11 06:11] LABS: Alanine Aminotransferase 10 U/L (0-31); Alkaline Phosphatase 87 U/L (39-117); Anion Gap 13 (12-20); Aspartate Amino Transferase 11 U/L (5-31); Bilirubin Total 0.2 mg/dL (0.0-1.0); Blood Urea Nitrogen 8 mg/dL (9-16); Calcium 8.5 mg/dL (8.4-10.2); Carbon Dioxide 23 mmol/L (22-29); Chloride 110 mmol/L (96-108); Creatinine Clr Calc Pharmacy 104.6; Estimated Glomerular Filt Rate > 60; Glucose Fasting 83 mg/dL (60-99); Magnesium 1.7 mg/dL (1.6-2.6); Potassium 3.5 mmol/L (3.3-5.1); Sodium 142 mmol/L (135-145); Total Protein 5.9 g/dL (6.5-8.0)
[2021-07-11] MEDS: Levothyroxine Sodium 100 MCG TABLET PO (06:42)
[2021-07-11] MEDS: Mesalamine 250 MG CAPSULE.ER 1000 MG PO ×4 (08:06→20:13)
[2021-07-11] MEDS: Enoxaparin Sodium 40 MG/0.4 ML SYRINGE SUBCUT (08:06)
[2021-07-11] MEDS: Morphine Sulfate 4 MG/ML CARTRIDGE SUBCUT ×2 (08:07→14:43)
--- NOTE | 2021-07-11 11:35 | HO.PM.IMPN ---
Subjective Subjective Date of Service: 07/11/21 Interval History: NG tube out yesterday. Tolerating clear liquids without issue. No nausea vomiting. States ?hungry? Review of Systems No chest pain No shortness of breath No nausea vomiting diarrhea Positive flatus Physical Exam Vital Signs: Vital Signs: Last Vital Signs Temp 97.2 F 07/11/21 07:18 Pulse 64 07/11/21 07:18 Resp 18 07/11/21 07:18 BP 132/68 07/11/21 07:18 Pulse Ox 95 07/11/21 07:18 Body Mass Index 39.8 Const: Other: Appears comfortable no acute distress; NG tube in place HENMT: Other: Membranes dry; oropharynx clear Resp: Other: Clear to auscultation all vázquez; no rales rhonchi or wheezes Cardio: Other: No S4; positive S1-S2; no S3 murmurs of gallops GI: Other: Soft nontender nondistended normoactive bowel sounds x4 quadrants no peritoneal signs Neuro: Other: Cranial nerves 2-12 grossly intact as tested. Motor 5/5 all extremities sensation intact. Cognition appropriate Extrem: Other: No edema bilaterally Objective Data Active Medications Acetaminophen (Acetaminophen 325 Mg Tablet) 650 mg PO Q6H PRN PRN Reason: Pain, Mild (Pain Scale 1-3) Enoxaparin Sodium (Enoxaparin Sodium 40 Mg/0.4 Ml Syringe) 40 mg SUBCUT DAILY [facility] Last Admin: 07/11/21 08:06 Dose: 40 mg Documented by: LACY Ceftriaxone Sodium 1 gm/ (Sodium Chloride) 50 mls @ 100 mls/hr IV Q24H [facility] Last Infusion: 07/10/21 21:27 Dose: 0 mls/hr Documented by: ROSALIA Lactated Ringer's (Lr) 1,000 mls @ 125 mls/hr IVCONT .Q8H [facility] Last Admin: 07/11/21 03:35 Dose: 125 mls/hr Documented by: URI Levothyroxine Sodium (Levothyroxine Sodium 100 Mcg Tablet) 100 mcg PO DAILY@0630 [facility] Last Admin: 07/11/21 06:42 Dose: 100 mcg Documented by: URI Mesalamine (Mesalamine 250 Mg Capsule.Er) 1,000 mg PO QID [facility] Last Admin: 07/11/21 08:06 Dose: 1,000 mg Documented by: LACY Mirtazapine (Mirtazapine 7.5 Mg Tablet) 7.5 mg PO BEDTIME PRN PRN Reason: Sleep Morphine Sulfate (Morphine Sulfate 4 Mg/Ml Cartridge) 4 mg SUBCUT Q4H PRN; Protocol PRN Reason: Pain, Mild (Pain Scale 1-3) Last Admin: 07/11/21 08:07 Dose: 4 mg Documented by: LACY Morphine Sulfate (Morphine Sulfate 4 Mg/Ml Cartridge) 4 mg IVPUSH Q4H PRN; Protocol PRN Reason: Pain, Moderate (Pain Scale 4-6 Last Admin: 07/11/21 01:22 Dose: 4 mg Documented by: URI Ondansetron HCl (Ondansetron Hcl 4 Mg/2 Ml Vial) 4 mg IVPUSH Q8H PRN PRN Reason: Nausea and Vomiting Last Admin: 07/04/21 21:36 Dose: 4 mg Documented by: HARPREET Pharmacy Consult (Consult Rx Perform Med Rec) 1 each MISCELLANE ONCE PRN PRN Reason: Consult order Sodium Chloride (0.9 % Sodium Chloride Flush 3 Ml Syringe) 3 ml IVFLUSH QSHIFT [facility] Last Admin: 07/11/21 08:08 Dose: Not Given Documented by: LACY Non-Admin Reason: IV Running Sodium Chloride (0.9 % Sodium Chloride Flush 10 Ml Syringe) 5 ml IVFLUSH TID [facility] Last Admin: 07/11/21 08:07 Dose: Not Given Documented by: LACY Non-Admin Reason: IV Running Labs CBC & Chem 7: 07/11/21 04:46 07/11/21 04:46 Labs: Laboratory Results - last 24 hr 07/10/21 07/11/21 07/11/21 07:38 04:46 04:46 MCV 76.8 L MCH 23.2 L MCHC 30.1 L RDW 17.0 H Plt Count 339 MPV 9.2 L Immature Gran % (Auto) 1.0 H Neut % (Auto) 52.2 Lymph % (Auto) 39.4 [place] % (Auto) 6.4 Eos % (Auto) 0.5 Baso % (Auto) 0.5 Lymph # (Auto) 2.4 [place] # (Auto) 0.4 Eos # (Auto) 0.0 Baso # (Auto) 0.0 Abs Immat Gran (auto) 0.06 H Absolute Neuts (auto) 3.2 Absolute Nucleated RBC 0.000 Nucleated RBC % (auto) 0.0 Anion Gap 13 Estim Creat Clear Calc 104.6 Estimated GFR > 60 Fasting Glucose 83 Calcium 8.5 Phosphorus 4.3 Magnesium 1.8 1.7 Total Bilirubin 0.2 AST 11 ALT 10 Alkaline Phosphatase 87 D Total Protein 5.9 L Albumin 3.0 L Assessment and Plan (1) Ileus: Status: Acute (2) Hypothyroidism: Status: Acute Assessment and Plan: 60F with pmh crohns, sbo, recent colonoscopy 07/02/21 with some ulcerations proximal to ileo colic anastastamosis; admitted 07/04/2021 secondary to abdominal pain and nausea. Imaging consistent with persistent ileus per surgery. NG tube out yesterday; tolerating clears without issue 1. Persistent ileus (per KUB done today) Tolerating clears... Will discuss with surgery question advancing diet slowly Erythromycin added 2.EColi UTI( pansensitive) Ceftriaxone 1 g IV Q 24 hour; once stable with p.o. will switch to oral Follow routine labs 3.Hypothyroid Continue outpatient thyroid dosing. 4.Crohns Continue mesalamine as ordered DVT prophylaxis - lovenox Full code Quality Stroke Does the patient have a stroke diagnosis?: No VTE Prior VTE?: No VTE Risk Level:: Medical - moderate - high VTE Device Contraindication: Treatment Not Indicated VTE Drug Contraindication: N/A - Med Ordered
[2021-07-11] MEDS: Erythromycin Base 250 MG TABLET PO ×3 (12:59→20:12)
--- NOTE | 2021-07-11 15:08 | P.PNGS_ITS ---
Subjective Subjective Date of Service: 07/11/21 Interval history: feeling better passing gas and stool Physical Exam Vital Signs: Vital Signs: Last Vital Signs Temp 97.9 F 07/11/21 12:00 Pulse 60 07/11/21 12:00 Resp 18 07/11/21 12:00 BP 147/67 H 07/11/21 12:00 Pulse Ox 95 07/11/21 12:00 Body Mass Index 39.8 GI: Other: abdo soft nontender nondisteded better bowel sounds Procedures Date of Service Date of Service: 07/11/21 Progress Note: A&P Assessment and plan (1) Bowel obstruction: Status: Acute Assessment and Plan: 60 year old female with ileus picture and chroni bowel dysmotility - doing better and ng out and passing gas and stool and tolerating some po clears. erythromycin po started to help with motility doubt will need any surgical intervention. Fall Risk Details Current Medications: Current Medications Acetaminophen (Acetaminophen 325 Mg Tablet) 650 mg PO Q6H PRN PRN Reason: Pain, Mild (Pain Scale 1-3) Enoxaparin Sodium (Enoxaparin Sodium 40 Mg/0.4 Ml Syringe) 40 mg SUBCUT DAILY [facility] Last Admin: 07/11/21 08:06 Dose: 40 mg Documented by: Erythromycin (Erythromycin Base 250 Mg Tablet) 250 mg PO TID [facility] Last Admin: 07/11/21 14:44 Dose: 250 mg Documented by: Ceftriaxone Sodium 1 gm/ (Sodium Chloride) 50 mls @ 100 mls/hr IV Q24H [facility] Last Infusion: 07/10/21 21:27 Dose: Infused Documented by: Lactated Ringer's (Lr) 1,000 mls @ 125 mls/hr IVCONT .Q8H [facility] Last Admin: 07/11/21 11:57 Dose: 125 mls/hr Documented by: Levothyroxine Sodium (Levothyroxine Sodium 100 Mcg Tablet) 100 mcg PO DAILY@0630 [facility] Last Admin: 07/11/21 06:42 Dose: 100 mcg Documented by: Mesalamine (Mesalamine 250 Mg Capsule.Er) 1,000 mg PO QID [facility] Last Admin: 07/11/21 12:59 Dose: 1,000 mg Documented by: Mirtazapine (Mirtazapine 7.5 Mg Tablet) 7.5 mg PO BEDTIME PRN PRN Reason: Sleep Morphine Sulfate (Morphine Sulfate 4 Mg/Ml Cartridge) 4 mg SUBCUT Q4H PRN; Protocol PRN Reason: Pain, Mild (Pain Scale 1-3) Last Admin: 07/11/21 14:43 Dose: 4 mg Documented by: Morphine Sulfate (Morphine Sulfate 4 Mg/Ml Cartridge) 4 mg IVPUSH Q4H PRN; Protocol PRN Reason: Pain, Moderate (Pain Scale 4-6 Last Admin: 07/11/21 01:22 Dose: 4 mg Documented by: Ondansetron HCl (Ondansetron Hcl 4 Mg/2 Ml Vial) 4 mg IVPUSH Q8H PRN PRN Reason: Nausea and Vomiting Last Admin: 07/04/21 21:36 Dose: 4 mg Documented by: Pharmacy Consult (Consult Rx Perform Med Rec) 1 each MISCELLANE ONCE PRN PRN Reason: Consult order Sodium Chloride (0.9 % Sodium Chloride Flush 3 Ml Syringe) 3 ml IVFLUSH QSHIFT [facility] Last Admin: 07/11/21 08:08 Dose: Not Given Documented by: Sodium Chloride (0.9 % Sodium Chloride Flush 10 Ml Syringe) 5 ml IVFLUSH TID [facility] Last Admin: 07/11/21 08:07 Dose: Not Given Documented by: Time Spent With Patient Time: Total time spent is greater than 50% in coordination of care (as documented) at patient's floor/unit and/or counseling patient: Time with patient: 15 - 24 minutes Quality Stroke Does the patient have a stroke diagnosis?: No VTE Prior VTE?: No VTE Risk Level:: Medical - moderate - high VTE Device Contraindication: Treatment Not Indicated VTE Drug Contraindication: N/A - Med Ordered
[2021-07-11] MEDS: cefTRIAXone sodium 1 GM in 0.9 % Sodium Chloride 50 ML IV (18:35)
[2021-07-12 00:22] VITALS: RESP 18
[2021-07-12 03:11] VITALS: RESP 18
[2021-07-12] MEDS: Morphine Sulfate 4 MG/ML CARTRIDGE IVPUSH (03:11)
[2021-07-12 03:22] VITALS: BP 116/58; PULSE 57; RESP 18; TEMP 36.7; O2SAT 95
[2021-07-12 04:23] VITALS: RESP 18
[2021-07-12] MEDS: Lactated Ringers 1,000 ML 125 ML IVCONT (04:23)
[2021-07-12] MEDS: Levothyroxine Sodium 100 MCG TABLET PO (06:23)
[2021-07-12 06:26] LABS: Hemoglobin 9.2 g/dl (12.0-16.0); Mean Corpuscular HGB Conc 31.7 g/dl (31.0-35.0); Mean Corpuscular Hemoglobin 23.7 pg (27.0-33.0); Mean Corpuscular Volume 74.6 fL (80-98); Mean Platelet Volume 9.7 fL (9.4-12.3); Platelet Count 340 X10*3/uL (160-400); Red Blood Count 3.89 X10*6/uL (4.20-5.50); Red Cell Distribution Width 16.4 % (11.0-16.0); White Blood Count 5.3 X10*3/uL (4.8-10.8)
[2021-07-12 06:44] LABS: Alanine Aminotransferase 10 U/L (0-31); Albumin Level 2.7 g/dL (3.5-5.0); Alkaline Phosphatase 74 U/L (39-117); Anion Gap 10 (12-20); Aspartate Amino Transferase 12 U/L (5-31); Bilirubin Total 0.2 mg/dL (0.0-1.0); Blood Urea Nitrogen 6 mg/dL (9-16); Calcium 8.3 mg/dL (8.4-10.2); Carbon Dioxide 25 mmol/L (22-29); Chloride 109 mmol/L (96-108); Creatinine Clr Calc Pharmacy 106.3; Estimated Glomerular Filt Rate > 60; Glucose Fasting 93 mg/dL (60-99); Potassium 3.4 mmol/L (3.3-5.1); Sodium 141 mmol/L (135-145); Total Protein 5.3 g/dL (6.5-8.0)
[2021-07-12 07:50] VITALS: BP 114/63; PULSE 60; RESP 16; TEMP 36.8; O2SAT 93
[2021-07-12] MEDS: Erythromycin Base 250 MG TABLET PO ×2 (08:47→14:13)
[2021-07-12] MEDS: Mesalamine 250 MG CAPSULE.ER 1000 MG PO ×2 (08:47→13:04)
[2021-07-12] MEDS: oxyCODONE HCl Immed Release 5 MG TABLET PO ×2 (08:58→14:14)
[2021-07-12] MEDS: Acetaminophen 325 MG TABLET 650 MG PO ×2 (08:59→14:14)
[2021-07-12] MEDS: Enoxaparin Sodium 40 MG/0.4 ML SYRINGE SUBCUT (09:00)
--- NOTE | 2021-07-12 09:06 | P.PNGS_ITS ---
Subjective Subjective Date of Service: 07/12/21 Interval history: Feels much better Passing flatus Had small BMs Denies nausea vomiting Says abdominal pain has improved significantly Physical Exam Vital Signs: Vital Signs: Last Vital Signs Temp 98.3 F 07/12/21 07:50 Pulse 60 07/12/21 07:50 Resp 16 07/12/21 07:50 BP 114/63 07/12/21 07:50 Pulse Ox 93 07/12/21 07:50 Body Mass Index 39.8 Const: Other: Chemistry 07/10/21 07/11/21 07/12/21 07:38 04:46 06:10 Sodium 139 142 141 Potassium 3.7 3.5 3.4 Carbon Dioxide 18 L 23 25 BUN 10 8 L 6 L Creatinine 0.71 0.66 0.65 Calcium 8.8 8.5 8.3 L Phosphorus 4.3 Hematology 07/10/21 07/11/21 07/12/21 07:38 04:46 06:10 WBC 8.1 6.1 5.3 Hgb 10.0 L 9.4 L 9.2 L Plt Count 317 339 340 General: comfortable and no acute distress Resp: Effort & Inspection: normal respiratory effort Cardio: Rhythm: regular rhythm GI: Palpation (GI): Soft to palpation, not firm, nontender and no guarding Procedures Date of Service Date of Service: 07/12/21 Progress Note: A&P Assessment and plan (1) Abdominal pain: Status: Acute Assessment and Plan: Symptoms have improved significantly Overall clinically picture more consistent with dysmotility Exam remains benign Patient passing flatus Okay to advance diet slowly as tolerated Fall Risk Details Current Medications: Current Medications Acetaminophen (Acetaminophen 325 Mg Tablet) 650 mg PO Q6H PRN PRN Reason: Pain, Mild (Pain Scale 1-3) Last Admin: 07/12/21 08:59 Dose: 650 mg Documented by: Enoxaparin Sodium (Enoxaparin Sodium 40 Mg/0.4 Ml Syringe) 40 mg SUBCUT DAILY [facility] Last Admin: 07/12/21 09:00 Dose: 40 mg Documented by: Erythromycin (Erythromycin Base 250 Mg Tablet) 250 mg PO TID [facility] Last Admin: 07/12/21 08:47 Dose: 250 mg Documented by: Ceftriaxone Sodium 1 gm/ (Sodium Chloride) 50 mls @ 100 mls/hr IV Q24H [facility] Last Infusion: 07/11/21 19:26 Dose: Infused Documented by: Lactated Ringer's (Lr) 1,000 mls @ 125 mls/hr IVCONT .Q8H [facility] Last Admin: 07/12/21 04:23 Dose: 125 mls/hr Documented by: Levothyroxine Sodium (Levothyroxine Sodium 100 Mcg Tablet) 100 mcg PO DAILY@0630 [facility] Last Admin: 07/12/21 06:23 Dose: 100 mcg Documented by: Mesalamine (Mesalamine 250 Mg Capsule.Er) 1,000 mg PO QID [facility] Last Admin: 07/12/21 08:47 Dose: 1,000 mg Documented by: Mirtazapine (Mirtazapine 7.5 Mg Tablet) 7.5 mg PO BEDTIME PRN PRN Reason: Sleep Ondansetron HCl (Ondansetron Hcl 4 Mg/2 Ml Vial) 4 mg IVPUSH Q8H PRN PRN Reason: Nausea and Vomiting Last Admin: 07/04/21 21:36 Dose: 4 mg Documented by: Oxycodone HCl (Oxycodone Hcl Immed Release 5 Mg Tablet) 5 mg PO Q4H PRN PRN Reason: Pain, Moderate (Pain Scale 4-6 Last Admin: 07/12/21 08:58 Dose: 5 mg Documented by: Pharmacy Consult (Consult Rx Perform Med Rec) 1 each MISCELLANE ONCE PRN PRN Reason: Consult order Sodium Chloride (0.9 % Sodium Chloride Flush 3 Ml Syringe) 3 ml IVFLUSH QSHIFT [facility] Last Admin: 07/12/21 00:22 Dose: Not Given Documented by: Sodium Chloride (0.9 % Sodium Chloride Flush 10 Ml Syringe) 5 ml IVFLUSH TID [facility] Last Admin: 07/11/21 20:14 Dose: Not Given Documented by: Time Spent With Patient Time: Total time spent is greater than 50% in coordination of care (as documented) at patient's floor/unit and/or counseling patient: Time with patient: 15 - 24 minutes Quality Stroke Does the patient have a stroke diagnosis?: No VTE Prior VTE?: No VTE Risk Level:: Medical - moderate - high VTE Device Contraindication: Treatment Not Indicated VTE Drug Contraindication: N/A - Med Ordered
--- NOTE | 2021-07-12 11:37 | MHC.CM.PN ---
Addendum entered by Marie Carballo RN 07/12/21 13:47: CM MET W/PT WHO REPORTS FEELING MUCH BETTER AND DOING WELL W/REGULAR DIET, PT ALSO REPORTS SHE HAS MADE ARRANGEMENTS FOR HER RIDE TO PICK HER UP AT 3PM, MIDLINE NEEDS TO BE REMOVED PRIOR TO D/C, PT'S NURSE AND HOSPITALIST AWARE. Original Note: PER MULTIDISCIPLINARY ROUNDS, PT WILL D/C IF TOLERATING REGULAR DIET, D/C PLAN CONT'S TO BE HOME NO SERVICES, FRIEND/FAMILY FOR TRANSPORT.
[2021-07-12 12:00] VITALS: BP 110/59; PULSE 69; RESP 18; TEMP 36.6; O2SAT 95
--- NOTE | 2021-07-12 15:30 | PM.DS ---
DS: Providers Provider Date of Service: 07/12/21 Date of admission: 07/04/21 15:54 Date of discharge: 07/12/21 Primary care physician: Yuli Garner MD Consults: 07/04/21 15:52 Consult to General Surgery Routine Consulting Provider: Ana Nolen Reason for consultation: ?obstruction vs ileus DS: Diagnosis Discharge Diagnosis (1) Abdominal pain: Status: Acute DS: Summary Hospital Course Hospital Course: 10F with pmh crohns, sbo, recent colonoscopy 07/02/21 with some ulcerations proximal to ileo colic anastamosis, complaining of abdominal pain, heartburn, nasuea, vomitting, abd distension, since colonoscopy. she does report small BMs, including on day of presentation and is passing gas. denies fever, chills, chest pain. in ED CT showed dilated small and large bowel, no transistion point, similar to CT from 2019. NGT was placed with some relief of symptoms. Hospital course Patient admitted and G-tube with to low suction. Course of the next several days her ileus failed to resolve and she continued with NG drainage to low intermittent wall suction. 48 hours prior to discharge she passed sufficient amounts of gas and the NG tube was removed. She tolerated clears and progressed to full diet on the day of discharge. She will be discharged small amount of pain meds to follow up with PCP Time Spent with Patient Time attestation: Total time spent providing and/or coordinating discharge services: Discharge coordination time: Greater than 30 minutes Quality: Stroke Does the patient have a stroke diagnosis?: No Physical Exam Vital Signs: Vital Signs: Last Vital Signs Temp 97.8 F 07/12/21 12:00 Pulse 69 07/12/21 12:00 Resp 18 07/12/21 12:00 BP 110/59 L 07/12/21 12:00 Pulse Ox 95 07/12/21 12:00 Body Mass Index 39.8 Const: Other: Appears comfortable no acute distress; NG tube in place HENMT: Other: Membranes dry; oropharynx clear Resp: Other: Clear to auscultation all vázquez; no rales rhonchi or wheezes Cardio: Other: No S4; positive S1-S2; no S3 murmurs of gallops GI: Other: Soft nontender nondistended normoactive bowel sounds x4 quadrants no peritoneal signs Neuro: Other: Cranial nerves 2-12 grossly intact as tested. Motor 5/5 all extremities sensation intact. Cognition appropriate Extrem: Other: No edema bilaterally DS: Data Data Completed and Pending Labs on day of discharge: Laboratory Results - last 24 hr 07/12/21 07/12/21 06:10 06:10 WBC 5.3 RBC 3.89 L Hgb 9.2 L Hct 29.0 L MCV 74.6 L MCH 23.7 L MCHC 31.7 RDW 16.4 H Plt Count 340 MPV 9.7 Absolute Nucleated RBC 0.000 Nucleated RBC % (auto) 0.0 Sodium 141 Potassium 3.4 Chloride 109 H Carbon Dioxide 25 Anion Gap 10 L BUN 6 L Creatinine 0.65 Estim Creat Clear Calc 106.3 Estimated GFR > 60 Fasting Glucose 93 Calcium 8.3 L Total Bilirubin 0.2 AST 12 ALT 10 Alkaline Phosphatase 74 Total Protein 5.3 L Albumin 2.7 L Discharge Plan Discharge Patient Disposition: Home, Self-Care Discharge Diagnosis: Ileus Referrals: Yuli Garner MD [Primary Care Provider] - 1 Week (Your doctor's office should call you to schedule a follow up appointment.) Discharge Medications: New erythromycin 250 mg Tablet 250 mg PO TID Qty: 21 RF: 0 oxycodone 10 mg tablet 5 mg PO Q6H PRN (Reason: pain) Qty: 20 RF: 0 Continued cholecalciferol (vitamin D3) 50 mcg (2,000 unit) capsule 50 mcg PO DAILY Qty: 30 RF: 3 pantoprazole 40 mg tablet,delayed release (DR/EC) 40 mg PO DAILY Qty: 30 RF: 3 levothyroxine 100 mcg tablet 1 tab PO DAILY RF: 0 pantoprazole 40 mg tablet,delayed release (DR/EC) 1 tab PO DAILY RF: 0 Pentasa 500 mg capsule, extended release PO RF: 0 levothyroxine 100 mcg tablet 100 mcg PO DAILY RF: 0 trospium 60 mg capsule,extended release 24hr 60 mg PO DAILY RF: 0 sennosides 8.6 mg tablet 17.2 mg PO BID PRN (Reason: Constipation) RF: 0 mirtazapine 7.5 mg tablet 7.5 mg PO BEDTIME PRN (Reason: Sleep) RF: 0 Discharge Orders: Discharge Order (Routine); Ordered 07/12/21 Ordered By: Antoni Johnson Diet: advance to usual diet Activity on Discharge: As tolerated Stand Alone Forms: Patient Portal Discharge page Care Plan Goals: Dietary compliance Health Concerns: Pain control Plan of Treatment: As ordered Assessment: Improved Discharge Date/Time: 07/12/21 14:42
== END 2021-07-12 14:42 | disposition home or self-care (01) | DRG 247 ==
LOC: HO.ED 15:25 → HO.EDOVER 16:41 → HO.S3 22:04
PROVIDERS: Surgery; Admitting Provider Internal Medicine; Emergency Provider Student in an Organized Health Care Education/Training Program; PCP Internal Medicine; Visit Provider Hospitalist
DX: K56.7 Ileus, unspecified (principal); E66.01 Morbid (severe) obesity due to excess calories; E03.9 Hypothyroidism, unspecified; E55.9 Vitamin D deficiency, unspecified; K51.90 Ulcerative colitis, unspecified, without complications; B96.20 Unspecified Escherichia coli [E. coli] as the cause of diseases classified elsewhere; N39.0 Urinary tract infection, site not specified; Z20.822 Contact with and (suspected) exposure to COVID-19; Z68.39 Body mass index [BMI] 39.0-39.9, adult; Z79.890 Hormone replacement therapy; Z79.899 Other long term (current) drug therapy
CPT/HCPCS: 36415; 36573; 71045; 74018; 74177; 80048; 80053; 80076; 81001; 82077; 83690; 83735; 84100; 85025; 85027; 86850; 86900; 86901; 87086; 87088; 87186; 87635; 96374; 96375; 96376; 99285; J0696; J1650; J2270; J2405; Q9967

== ENCOUNTER → 2021-07-22 09:21 | Outpatient (BNVA) | payer OTHER, SELFPAY | PROVIDERS: PCP Internal Medicine; Referring Provider Internal Medicine; Visit Provider Internal Medicine Gastroenterology | DX: K59.09 Other constipation (principal); D64.9 Anemia, unspecified | CPT/HCPCS: 99212 ==

== ENCOUNTER 2021-08-10 10:51 | Outpatient (REF) | payer OTHER, SELFPAY ==
[2021-08-10 13:49] LABS: MANUAL DIFF FLAG NO
[2021-08-10 14:01] LABS: Basophils Percent Auto 0.7 % (0-2); Eosinophils Absolute Auto 0.1 X10*3/uL (0.0-0.4); Eosinophils Percent Auto 1.5 % (0-4); Hemoglobin 11.4 g/dl (12.0-16.0); Lymphocytes Absolute Auto 1.6 X10*3/uL (1.2-4.9); Lymphocytes Percent Auto 34.1 % (20-40); Mean Corpuscular HGB Conc 30.8 g/dl (31.0-35.0); Mean Corpuscular Hemoglobin 23.4 pg (27.0-33.0); Mean Corpuscular Volume 75.8 fL (80.0-98.0); Mean Platelet Volume 10.9 fL (9.4-12.3); Monocytes Absolute Auto 0.3 X10*3/uL (0.1-1.2); Monocytes Percent Auto 6.1 % (2-11); Neutrophils Absolute Auto 2.6 x10*3/uL (2.0-8.3); Neutrophils Percent Auto 57.6 % (45-73); Platelet Count 317 X10*3/uL (160-400); Red Blood Count 4.88 X10*6/uL (4.20-5.50); Red Cell Distribution Width 18.1 % (11.0-16.0); White Blood Count 4.6 X10*3/uL (4.8-10.8)
[2021-08-10 14:25] LABS: Alanine Aminotransferase 12 U/L (0-31); Albumin Level 3.9 g/dL (3.5-5.0); Alkaline Phosphatase 67 U/L (39-117); Aspartate Amino Transferase 13 U/L (5-31); Bilirubin Direct < 0.2 mg/dL (0.0-0.5); Bilirubin Total 0.2 mg/dL (0.0-1.0); Iron 31 mcg/dL (30-160); Percent Iron Saturation 8 % (15-50); Total Iron Binding Capacity 394 mcg/dL (228-428); Total Protein 7.6 g/dL (6.5-8.0); Unsaturated Iron Binding 363 ug/dL
[2021-08-10 14:49] LABS: Ferritin 19 ng/mL (10-250)
== END 2021-08-10 10:52 | disposition home or self-care (01) ==
LOC: HO.HMGCLDS 10:51
PROVIDERS: PCP Internal Medicine; Visit Provider Internal Medicine Gastroenterology
DX: D64.9 Anemia, unspecified (principal); K50.10 Crohn's disease of large intestine without complications
CPT/HCPCS: 36415; 80076; 81335; 82728; 83540; 85025

== ENCOUNTER 2021-08-11 10:01 | Outpatient (REF) | payer OTHER, SELFPAY ==
--- NOTE | ~2021-08-11 | MM_ITS ---
EXAMINATION: BONE DENSITOMETRY CLINICAL INDICATION: Hyperparathyroidism. COMPARISON: Bone densitometry 01/05/2021. TECHNIQUE: Using a [employer] DXA System (software version: 13.1) manufactured by [employer], dual-energy x-ray absorptiometry was performed of the left forearm radius 33%. The images are of good technical quality. Summary results are attached. FINDINGS: LEFT FOREARM RADIUS 33%: BMD 0.763 g/cm2, Z-score -0.4, T-score -1.3, osteopenia. Baseline: Not previously measured. IDENTIFIED RISK FACTORS: Menopause, history of fracture (adult), hyperparathyroidism, height loss, secondary osteoporosis. HISTORY OF FRACTURE: Elbow, wrist. MEDICATIONS: Vitamin D. MM/XR DEXA appendicular skeleton IMPRESSION: 1. DIAGNOSIS: Osteopenia based on the lowest T-score value of -1.3 in the forearm radius 33% applying World Health Organization criteria. 2. Comment: Recent bone densitometry 01/05/2021 noted osteoporosis based on the lowest T-score value of -2.6 in the lumbar spine applying World Health Organization criteria. 3. Treatment Recommendations: NOF guidelines recommend consideration for treatment in postmenopausal women and men age 50 and older presenting with the following: -A hip or vertebral (clinical or morphometric) fracture. -T-score less than or equal to -2.5 at the femoral neck or spine after appropriate evaluation to exclude secondary causes. -Low bone mass at the hip or spine and a 10-year fracture probability by FRAX of greater than or equal to 3% for hip fracture or greater than or equal to 20% for major osteoporotic fracture based on the [place] adapted WHO algorithm. 4. Other Recommendations: All treatment decisions require clinical judgment and consideration of individual patient factors, including patient preferences, comorbidities, previous drug use, risk factors not captured in the FRAX model (e.g. frailty, falls, vitamin D deficiency, increased bone turnover, interval significant decline in bone density) and possible under or overestimation of fracture risk by FRAX. Additional medical evaluation for secondary cause of low bone mineral density may be appropriate. FUTURE SCAN RECOMMENDATION: People with diagnosed cases of osteoporosis or at high risk for fracture should have regular bone mineral density tests. For patients eligible for Medicare, routine testing is allowed once every 2 years. The testing frequency can be increased to one year for patients who have rapidly progressing disease, those who are receiving or discontinuing medical therapy to restore bone mass, or have additional risk factors.
== END 2021-08-11 10:02 | disposition home or self-care (01) ==
LOC: HO.MAMMO 10:01
PROVIDERS: Visit Provider Internal Medicine
DX: Z13.820 Encounter for screening for osteoporosis (principal); E21.3 Hyperparathyroidism, unspecified; Z78.0 Asymptomatic menopausal state
CPT/HCPCS: 77081

== ENCOUNTER 2021-08-13 | Outpatient (REF) | payer OTHER, SELFPAY ==
[2021-08-13 11:38] LABS: Total Volume 24 Hour Urine 1300 mL
[2021-08-13 11:51] LABS: Creatinine, 24Hr Urine 0.9 G/Day (1.0-2.0); Creatinine, mg/dL 70.95
[2021-08-14 17:07] LABS: Calcium, 24 Hr Urine 61 mg/24 h; Calcium/Creatinine Ratio 62 mg/g creat (30-275); Creatinine 24Hr Urine 0.99 g/24 h (0.50-2.15)
== END 2021-08-13 00:01 | disposition home or self-care (01) ==
LOC: HO.HMGCLNP
PROVIDERS: Visit Provider Internal Medicine
DX: E21.3 Hyperparathyroidism, unspecified (principal)
CPT/HCPCS: 82340; 82570

== ENCOUNTER → 2021-09-20 11:22 | Outpatient (BNVA) | payer OTHER, SELFPAY | PROVIDERS: PCP Internal Medicine; Visit Provider Internal Medicine ==

== ENCOUNTER 2021-11-11 08:30 | Outpatient (REF) | payer OTHER, SELFPAY ==
[2021-11-11 10:30] LABS: Alanine Aminotransferase 10 U/L (0-31); Alkaline Phosphatase 67 U/L (39-117); Anion Gap 15 (12-20); Aspartate Amino Transferase 15 U/L (5-31); Bilirubin Total 0.4 mg/dL (0.0-1.0); Blood Urea Nitrogen 14 mg/dL (9-16); Calcium 9.5 mg/dL (8.4-10.2); Carbon Dioxide 24 mmol/L (22-29); Chloride 105 mmol/L (96-108); Estimated Glomerular Filt Rate > 60; Glucose Random 111 mg/dL (60-115); Phosphorus 4.1 mg/dL (2.7-4.5); Potassium 4.5 mmol/L (3.3-5.1); Sodium 139 mmol/L (135-145); Total Protein 7.7 g/dL (6.5-8.0)
[2021-11-11 10:52] LABS: Free T4 (Free Thyroxine) 1.29 ng/dL (0.71-1.85); Thyroid Stimulating Hormone 1.13 uIU/mL (0.32-4.0); Vitamin D 25-OH Total 30.2 ng/mL (>30)
[2021-11-12 19:26] LABS: Calcium (PTHI) 9.3 mg/dL (8.6-10.4); PTHI 68 pg/mL (14-64)
[2021-11-15 20:36] LABS: N-Telopeptide 67 (see note); NTXCreaRU 195 mg/dL (20-275)
[2021-11-16 19:46] LABS: Alkaline Phosphatase Bone 9.1 mcg/L (5.6-29.0)
== END 2021-11-11 08:31 | disposition home or self-care (01) ==
LOC: HO.LAB 08:30
PROVIDERS: PCP Internal Medicine; Visit Provider Internal Medicine
DX: E21.3 Hyperparathyroidism, unspecified (principal); E03.9 Hypothyroidism, unspecified; E55.9 Vitamin D deficiency, unspecified
CPT/HCPCS: 36415; 80053; 82306; 82523; 83970; 84075; 84100; 84439; 84443

== ENCOUNTER 2021-11-18 10:59 | Outpatient (REF) | payer OTHER, SELFPAY ==
[2021-11-18 14:54] LABS: Creatinine, mg/dL 88.12
[2021-11-18 15:04] LABS: Creatinine, 24Hr Urine 1.1 G/Day (1.0-2.0); Total Volume 24 Hour Urine 1225 mL
[2021-11-22 17:01] LABS: Calcium, 24 Hr Urine 146 mg/24 h; Calcium/Creatinine Ratio 131 mg/g creat (30-275); Creatinine 24Hr Urine 1.11 g/24 h (0.50-2.15)
== END 2021-11-18 11:00 | disposition home or self-care (01) ==
LOC: HO.HMGCLNP 10:59
PROVIDERS: Visit Provider Internal Medicine
DX: E21.3 Hyperparathyroidism, unspecified (principal)
CPT/HCPCS: 82340; 82570

== ENCOUNTER → 2021-12-15 10:04 | Outpatient (BNVA) | payer OTHER, SELFPAY | PROVIDERS: PCP Internal Medicine; Visit Provider Obstetrics & Gynecology | DX: Z13.89 Encounter for screening for other disorder (principal) ==

== ENCOUNTER 2021-12-16 09:57 | Outpatient (REF) | payer OTHER, SELFPAY ==
[2021-12-16 11:50] LABS: MANUAL DIFF FLAG NO
[2021-12-16 12:13] LABS: Basophils Percent Auto 0.6 % (0-2); Eosinophils Absolute Auto 0.1 X10*3/uL (0.0-0.4); Eosinophils Percent Auto 1.2 % (0-4); Hematocrit 38.1 % (37.0-47.0); Hemoglobin 11.7 g/dl (12.0-16.0); Imm Gran Abs Auto 0.02 X10*3/uL (0.00-0.03); Imm Gran Pct Auto 0.4 % (0.0-0.4); Lymphocytes Absolute Auto 1.8 X10*3/uL (1.2-4.9); Lymphocytes Percent Auto 35.6 % (20-40); Mean Corpuscular HGB Conc 30.7 g/dl (31.0-35.0); Mean Corpuscular Volume 81.4 fL (80.0-98.0); Mean Platelet Volume 9.6 fL (9.4-12.3); Monocytes Absolute Auto 0.4 X10*3/uL (0.1-1.2); Monocytes Percent Auto 7.4 % (2-11); Neutrophils Absolute Auto 2.8 x10*3/uL (2.0-8.3); Neutrophils Percent Auto 54.8 % (45-73); Platelet Count 387 X10*3/uL (160-400); Red Blood Count 4.68 X10*6/uL (4.20-5.50); Red Cell Distribution Width 18.3 % (11.0-16.0); White Blood Count 5.1 X10*3/uL (4.8-10.8)
[2021-12-16 12:41] LABS: Alanine Aminotransferase 11 U/L (0-31); Alkaline Phosphatase 69 U/L (39-117); Anion Gap 12 (12-20); Aspartate Amino Transferase 12 U/L (5-31); Bilirubin Total 0.4 mg/dL (0.0-1.0); Blood Urea Nitrogen 12 mg/dL (9-16); C Reactive Protein 0.74 mg/dL (< or = 0.50); Calcium 9.5 mg/dL (8.4-10.2); Carbon Dioxide 26 mmol/L (22-29); Chloride 105 mmol/L (96-108); Estimated Glomerular Filt Rate > 60; Glucose Random 101 mg/dL (60-115); Phosphorus 3.9 mg/dL (2.7-4.5); Potassium 4.5 mmol/L (3.3-5.1); Sodium 138 mmol/L (135-145); Total Protein 7.6 g/dL (6.5-8.0)
[2021-12-16 13:03] LABS: Free T4 (Free Thyroxine) 1.53 ng/dL (0.71-1.85); Vitamin D 25-OH Total 28.9 ng/mL (>30)
[2021-12-16 13:04] LABS: Ferritin 8 ng/mL (10-250); Thyroid Stimulating Hormone 0.18 uIU/mL (0.32-4.0)
[2021-12-16 13:18] LABS: Folate 4.7 ng/mL (> or = 4.0); Vitamin B12 385 pg/mL (200-900)
[2021-12-18 09:37] LABS: Calcium (PTHI) 9.1 mg/dL (8.6-10.4); PTHI 83 pg/mL (16-77)
[2021-12-22 07:11] LABS: N-Telopeptide 90 (see note); NTXCreaRU 115 mg/dL (20-275)
== END 2021-12-16 09:58 | disposition home or self-care (01) ==
LOC: HO.LAB 09:57
PROVIDERS: Internal Medicine; PCP Internal Medicine; Referring Provider Internal Medicine; Visit Provider Internal Medicine Gastroenterology
DX: K21.9 Gastro-esophageal reflux disease without esophagitis (principal); K50.119 Crohn's disease of large intestine with unspecified complications; K59.09 Other constipation; E03.9 Hypothyroidism, unspecified; E55.9 Vitamin D deficiency, unspecified; D64.9 Anemia, unspecified; M81.0 Age-related osteoporosis without current pathological fracture
CPT/HCPCS: 36415; 80053; 82306; 82523; 82607; 82728; 82746; 83970; 84100; 84439; 84443; 85025; 86140; 99212

== ENCOUNTER 2022-01-07 11:08 | Outpatient (REF) | payer OTHER, SELFPAY ==
--- NOTE | ~2022-01-07 | MM_ITS ---
EXAMINATION: MM SCREENING DIGITAL BREAST TOMOSYNTHESIS, BILATERAL CLINICAL INFORMATION: Screening. Asymptomatic. The lifetime risk of breast cancer based on the Tyrer-Cuzick Model is 8%. COMPARISON: Mammography: 01/05/2021, 10/27/2017, 10/24/2016 TECHNIQUE: Digital breast tomosynthesis is performed in both the craniocaudal and mediolateral oblique views along with computer-aided detection (CAD). Synthesized 2D images are generated from the tomosynthesis. Additional left CC and bilateral MLO views are obtained. FINDINGS: There are scattered areas of fibroglandular density (ACR BI-RADS breast composition Category b). There are no significant masses, abnormal calcifications, or other abnormalities. Parenchymal pattern is similar to prior studies and there is no developing density or architectural abnormality. No significant changes. The axilla are unremarkable. MM/MM tomosynthesis screening BI IMPRESSION: No mammographic evidence of malignancy. ASSESSMENT: BI-RADS 1: Negative RECOMMENDATION: Routine annual mammography screening. This patient's information was entered into a reminder system with a target due date for their next mammogram.
== END 2022-01-07 11:09 | disposition home or self-care (01) ==
LOC: HO.MAMMO 11:08
PROVIDERS: Visit Provider Internal Medicine
DX: Z12.31 Encounter for screening mammogram for malignant neoplasm of breast (principal)
CPT/HCPCS: 77063; 77067

== ENCOUNTER 2022-03-18 12:03 | Outpatient (REF) | payer OTHER, SELFPAY ==
[2022-03-18 14:04] LABS: Alanine Aminotransferase 8 U/L (0-31); Albumin Level 3.9 g/dL (3.5-5.0); Alkaline Phosphatase 69 U/L (39-117); Anion Gap 15 (12-20); Aspartate Amino Transferase 11 U/L (5-31); Bilirubin Total 0.3 mg/dL (0.0-1.0); Blood Urea Nitrogen 13 mg/dL (9-16); Calcium 9.4 mg/dL (8.4-10.2); Carbon Dioxide 25 mmol/L (22-29); Chloride 103 mmol/L (96-108); Estimated Glomerular Filt Rate 57; Glucose Random 91 mg/dL (60-115); Phosphorus 4.3 mg/dL (2.7-4.5); Potassium 4.2 mmol/L (3.3-5.1); Sodium 139 mmol/L (135-145); Total Protein 7.5 g/dL (6.5-8.0)
[2022-03-18 14:28] LABS: Free T4 (Free Thyroxine) 1.33 ng/dL (0.71-1.85); Thyroid Stimulating Hormone 0.82 uIU/mL (0.32-4.0); Vitamin D 25-OH Total 28.5 ng/mL (>30)
[2022-03-20 11:17] LABS: Calcium (PTHI) 9.4 mg/dL (8.6-10.4); PTHI 43 pg/mL (16-77)
[2022-03-23 10:01] LABS: Alkaline Phosphatase Bone 10.3 mcg/L (5.6-29.0)
== END 2022-03-18 12:04 | disposition home or self-care (01) ==
LOC: HO.HMGCLDS 12:03
PROVIDERS: PCP Internal Medicine; Visit Provider Internal Medicine
DX: M81.0 Age-related osteoporosis without current pathological fracture (principal); E55.9 Vitamin D deficiency, unspecified; E03.9 Hypothyroidism, unspecified
CPT/HCPCS: 36415; 80053; 82306; 83970; 84075; 84100; 84439; 84443

== ENCOUNTER 2022-03-19 13:29 | Outpatient (REF) | payer OTHER, SELFPAY ==
[2022-03-25 18:12] LABS: N-Telopeptide 44 (see note); NTXCreaRU 95 mg/dL (20-275)
== END 2022-03-19 13:30 | disposition home or self-care (01) ==
LOC: HO.HMGCLNP 13:29
PROVIDERS: Visit Provider Internal Medicine
DX: M81.0 Age-related osteoporosis without current pathological fracture (principal)
CPT/HCPCS: 82523

== ENCOUNTER 2022-03-24 11:49 | Outpatient (REF) | payer OTHER, SELFPAY ==
[2022-03-24 14:07] LABS: Total Volume 24 Hour Urine 600 mL
[2022-03-24 14:17] LABS: Creatinine, 24Hr Urine 0.6 G/Day (1.0-2.0); Creatinine, mg/dL 107.26
[2022-03-26 19:56] LABS: Calcium, 24 Hr Urine 131 mg/24 h; Calcium/Creatinine Ratio 202 mg/g creat (30-275); Creatinine 24Hr Urine 0.65 g/24 h (0.50-2.15)
== END 2022-03-24 11:50 | disposition home or self-care (01) ==
LOC: HO.HMGCLNP 11:49
PROVIDERS: Visit Provider Internal Medicine
DX: M81.0 Age-related osteoporosis without current pathological fracture (principal)
CPT/HCPCS: 82340; 82570

== ENCOUNTER → 2022-04-20 11:44 | Outpatient (BNVA) | payer OTHER, SELFPAY | PROVIDERS: PCP Internal Medicine; Visit Provider Internal Medicine | DX: E21.3 Hyperparathyroidism, unspecified (principal); M81.0 Age-related osteoporosis without current pathological fracture; E03.9 Hypothyroidism, unspecified; E55.9 Vitamin D deficiency, unspecified; Z79.899 Other long term (current) drug therapy; Z79.891 Long term (current) use of opiate analgesic | CPT/HCPCS: 99212 ==

== ENCOUNTER 2022-05-03 10:59 | Outpatient (REF) | payer OTHER, SELFPAY ==
[2022-05-03 11:04] LABS: Total Volume 24 Hour Urine 1700 mL
[2022-05-03 11:51] LABS: Creatinine, 24Hr Urine 0.8 G/Day (1.0-2.0); Creatinine, mg/dL 49.94
[2022-05-05 18:12] LABS: Calcium, 24 Hr Urine 102 mg/24 h; Calcium/Creatinine Ratio 113 mg/g creat (30-275)
== END 2022-05-03 11:00 | disposition home or self-care (01) ==
LOC: HO.LNP 10:59
PROVIDERS: Visit Provider Internal Medicine
DX: M81.0 Age-related osteoporosis without current pathological fracture (principal)
CPT/HCPCS: 82340; 82570

== ENCOUNTER 2022-05-25 11:25 | Outpatient (REF) | payer OTHER, SELFPAY ==
[2022-05-25 12:50] LABS: Influenza A PCR NEGATIVE (Negative); Influenza B PCR NEGATIVE (Negative); Resp Syncy Virus RNA Qual PCR NEGATIVE (Negative); SARS COV2 PCR INHOUSE POSITIVE (Negative)
== END 2022-05-25 11:26 | disposition home or self-care (01) ==
LOC: HO.LNP 11:25
PROVIDERS: Visit Provider Emergency Medicine
DX: Z20.822 Contact with and (suspected) exposure to COVID-19 (principal); R68.89 Other general symptoms and signs
CPT/HCPCS: 0241U

== ENCOUNTER 2022-05-28 04:44 | Inpatient (IN) | payer OTHER, SELFPAY ==
[2022-05-28] VITALS (8 sets, daily range): BP systolic 99–126; BP diastolic 51–80; PULSE 56–90; RESP 14–18; TEMP 36.5–36.8; O2SAT 94–100; BMI 29.9
--- NOTE | ~2022-05-28 | NM_ITS ---
PULMONARY PERFUSION ONLY STUDY: CLINICAL INDICATION: COVID positive. Elevated d-dimer. PROCEDURE: Following the intravenous administration of 5.0 millicuries technetium 99m MAA, images of the chest were obtained in multiple projections using a gamma scintiphotographic camera. COMPARISON: Chest radiograph done earlier today. PERFUSION IMAGES: No segmental perfusion defects or other perfusion abnormalities are noted. NM/NM pul perfusion IMPRESSION: Based on perfusion only modified PIOPED 2 criteria, pulmonary thromboembolism is absent.
--- NOTE | ~2022-05-28 | XR_ITS ---
EXAMINATION: XR CHEST CLINICAL INFORMATION: Cough. COMPARISON: None TECHNIQUE: Portable AP view of the chest was obtained. XR/XR chest 1V FINDINGS/IMPRESSION: The study is limited by portable technique and suboptimal inspiration. There is no gross acute radiographic finding. No focal infiltrate, effusion, or pneumothorax is seen. A small right midlung linear density suggests atelectasis and/or fibrotic change. The heart appears normal in size. Surgical clips project over the left upper mediastinum. Bowel is interposed between the liver and the right hemidiaphragm, which is mildly elevated.
--- NOTE | ~2022-05-28 | CT_ITS ---
EXAMINATION: CT ABDOMEN AND PELVIS WITHOUT CONTRAST CLINICAL INFORMATION: Diarrhea. History of Crohn's. COMPARISON: None TECHNIQUE: Multidetector volumetric imaging was performed from the superior aspect of the liver through the pubic symphysis. Sagittal and coronal reformatted images were obtained on the technologist's workstation. This CT examination was performed using dose optimization techniques as appropriate, variously including the following: *Automated exposure control *Adjustment of mA and/or kV according to patient size (this includes techniques or standardized protocols for targeted exams where dose is matched to indication/reason for exam; i.e. extremities or head) *Use of iterative reconstruction technique DLP: 726 mGy-cm FINDINGS: LUNG BASES: The lung bases appear clear, with no evidence of inflammation or nodules. LIVER, GALLBLADDER, AND BILIARY TREE: The liver appears unremarkable in size, shape, and attenuation. No focal hepatic lesion or biliary ductal dilatation is appreciated. Status post cholecystectomy. PANCREAS: Unremarkable SPLEEN: Unremarkable ADRENAL GLANDS: Unremarkable KIDNEYS AND URETERS: Normal variant ptotic, congenitally under rotated right kidney. The kidneys otherwise appear unremarkable in size, shape, and attenuation. No hydronephrosis, hydroureter, or calculi seen. BLADDER: Poorly distended and limited by motion artifact, therefore suboptimally evaluated. Grossly unremarkable. GASTROINTESTINAL TRACT: Somewhat limited visualization of the rectum due to motion artifact. Colon interposed between the liver and right hemidiaphragm, a normal variant. Suspect partial colectomy. Fluid throughout mildly dilated large and small bowel as well as within the rectal vault. No evidence of diverticulosis. No evidence of mechanical obstruction, free air, or free intraperitoneal fluid. ABDOMINAL WALL: Tip of right posterior subcutaneous pulse generator device lead projects anterior to the right lower sacrum. Vertical midline anterior abdominal wall surgical incisional scar. No significant hernia is appreciated. LYMPH NODES: No evidence of adenopathy by size criteria. VASCULAR: Unremarkable PELVIC VISCERA: Unremarkable OSSEOUS STRUCTURES: Approximately 1 cm L4 sclerotic lesion (image 52, series 7), not otherwise characterized. No other sclerotic or lytic bony lesion identified. CT/CT abdomen pelvis wo IV con IMPRESSION: Suspect partial colectomy. Fluid throughout mildly dilated large and small bowel as well as within the rectal vault. Findings suggest hypersecretion and mild ileus. Approximately 1 cm L4 sclerotic lesion, not otherwise characterized. No other sclerotic or lytic bony lesion identified. In the absence of known or suspected malignancy elsewhere (for example, breast cancer), the finding probably represents a bone island. Recommend clinical correlation. Additional findings, as above.
--- NOTE | 2022-05-28 04:53 | ECG_ITS ---
Test Reason : N/V Blood Pressure : / mmHG Vent. Rate : 081 BPM Atrial Rate : 081 BPM P-R Int : 166 ms QRS Dur : 088 ms QT Int : 380 ms P-R-T Axes : 039 014 025 degrees QTc Int : 441 ms Normal sinus rhythm Nonspecific ST and T wave abnormality Abnormal ECG No previous ECGs available Referred By: Amy Odell Electronically Signed By:CARMELLA NICKERSON
--- NOTE | 2022-05-28 04:55 | ED_ITS ---
HPI - Nausea/Vomiting/Diarrhea General Chief complaint: Nausea/Vomiting/Diarrhea Stated complaint: N/V/+COVID Time Seen by Provider: 05/28/22 04:52 Source: patient Mode of arrival: EMS Limitations: no limitations History of Present Illness HPI Narrative: 61 yo female hx of Crohns on oral daily medications, she has had 4 COVID vaccines notes she went to urgent care on monday for sinus issue and tested positive for COVID. They started her on paxlovid. She started her paxlovid on since then she notes worsening weakness, n/v/d since then. MD elicited complaint: nausea, vomiting, diarrhea and abdominal pain Pertinent past history: abdominal surgery and other (crohns) Onset (ago): hour(s) (24) Description of vomiting: food contents and watery Description of diarrhea: watery Associated nausea: Yes Associated abdominal pain: Yes Location of pain: diffuse Radiation: diffuse Pain consistency: constant Severity: moderate Quality: cramping Exacerbating factors: eating Relieving factors: none Context: other (covid + started paxlovid yesterday states GI symptoms preseny before ) Associated symptoms: fever/chills, loss of appetite, malaise, nausea/vomiting and weakness Related Data Allergies Allergy/AdvReac Type Severity Reaction Status Date / Time No Known Allergies Allergy Verified 05/28/22 04:52 Review of Systems Review of Systems: Constitutional : No Weight loss, No Fever, pos Chills ENT/Mouth : No sore throat, pos Rhinorrhea Eyes: No Swelling, No Redness Cardiovascular : No Chest Pain, No SOB, NoEdema Respiratory : No Cough, No Sputum, No Wheezing Gastrointestinal : Positive Nausea, Positive Vomiting, positive Diarrhea, positive abdominal Pain, No Hematochezia, No Melena Genitourinary : No Dysuria, No Urinary Frequency, No Hematuria, No Urgency Musculoskeletal : No joint pain, No Myalgias, No Joint Swelling Skin : No Skin Lesions, No rash Neuro : No Weakness, No Numbness, No Dizziness, No Headache Psych : No Anxiety/Panic, No Depression Heme/Lymph: No Bruising, No Lymphadenopathy Endocrine : No Polyuria, No Polydipsia All other systems reviewed and are negative. Gastrointestinal: Gastrointestinal: Reports nausea PMFSH Past Medical History Attestation statement: The following information was validated with the patient. Medical History Crohn disease Surgical History History of bowel resection Social History Social History (Updated 05/28/22 @ 05:07 by Amy Odell DO) Patient Tobacco Use Status: Never used Tobacco Advance Directives: No Advance Directives Information Provided: No Physical Exam Vital Signs: Vital Signs: Last Vital Signs Temp 98.2 F 05/28/22 05:48 Pulse 57 05/28/22 05:48 Resp 16 05/28/22 05:48 BP 106/59 L 05/28/22 05:48 Pulse Ox 100 05/28/22 05:48 O2 Del Method 05/28/22 05:48 BMI result Body Mass Index 29.9 Appearance: Alert. Oriented X3. No acute distress. Eyes: Pupils equal, round and reactive to light. ENT: Pharynx mild dry MM. Neck: Normal inspection. Neck supple. CVS: Normal heart rate and rhythm. Pulses normal. Respiratory: No respiratory distress. Breath sounds normal. Abdomen: Soft and mild diffuse ttp no rebound Skin: Skin warm and dry. pale skin color. Normal skin turgor. Extremities: No lower extremity edema. No calf ttp Neuro: Oriented X 3. No motor deficit. No sensory deficit. Course Course Course Narrative: ddimer elevated - CTA PE ordered CT Scan for colitis ordered signed out to Dr. Knight 7am MDM - Nausea/Vomiting/Diarrhea MDM Narrative Medical decision making narrative: 61 yo female hx of Crohn's on oral medications, vaccinated x 4 for COVID + test on Monday has taken Paxlovid since . She reports abdominal pain n/v/d. Feels she is in a Crohns flare. At this time will obtain basic labs, hydrate patient, IVF, IV morphine for pain, CT scan for colitis/SBO. Dispo per results and findings. Lab Data Result diagrams: 05/28/22 06:26 05/28/22 06:26 Labs: Lab Results 05/28/22 05/28/22 05/28/22 Range/Units 06:24 06:26 06:26 WBC 6.6 (4.8-10.8) X10*3/uL RBC 4.90 (4.20-5.50) X10*6/uL Hgb 13.0 (12.0-16.0) g/dl Hct 39.9 (37.0-47.0) % MCV 81.4 (80.0-98.0) fL MCH 26.5 L (27.0-33.0) pg MCHC 32.6 (31.0-35.0) g/dl RDW 16.5 H (11.0-16.0) % Plt Count 326 (160-400) X10*3/uL MPV 9.2 L (9.4-12.3) fL Immature Gran % (Auto) 0.3 (0.0-0.4) % Neut % (Auto) 81.9 H (45-73) % Lymph % (Auto) 10.0 L (20-40) % [place] % (Auto) 7.4 (2-11) % Eos % (Auto) 0.2 (0-4) % Baso % (Auto) 0.2 (0-2) % Lymph # (Auto) 0.7 L (1.2-4.9) X10*3/uL [place] # (Auto) 0.5 (0.1-1.2) X10*3/uL Eos # (Auto) 0.0 (0.0-0.4) X10*3/uL Baso # (Auto) 0.0 (0.0-0.2) X10*3/uL Abs Immat Gran (auto) 0.02 (0.00-0.03) X10*3/uL Absolute Neuts (auto) 5.4 (2.0-8.3) x10*3/uL Absolute Nucleated RBC 0.000 (0.0-0.012) X10*3/uL Nucleated RBC % (auto) 0.0 (0.0-0.2) /100WBC D-Dimer High Sensitivty NG/ML Sodium 137 (135-145) mmol/L Potassium 3.8 (3.3-5.1) mmol/L Chloride 100 (96-108) mmol/L Carbon Dioxide 20 L (22-29) mmol/L Anion Gap 21 H (12-20) BUN 27 H (9-16) mg/dL Creatinine 1.89 H (0.5-1.4) mg/dL Estim Creat Clear Calc 33.4 Estimated GFR 27 Random Glucose 122 H (60-115) mg/dL Lactic Acid (0.5-2.0) mmol/L Calcium 8.7 (8.4-10.2) mg/dL Magnesium 2.4 (1.6-2.6) mg/dL Total Bilirubin 0.9 (0.0-1.0) mg/dL Direct Bilirubin 0.4 (0.0-0.5) mg/dL AST 22 (5-31) U/L ALT 18 (0-31) U/L Alkaline Phosphatase 95 (39-117) U/L Troponin I High Sens (<3.5-17.0) ng/L Total Protein 8.4 H (6.5-8.0) g/dL Albumin 4.1 (3.5-5.0) g/dL Lipase 8 (8-78) U/L COVID-19 (SUZAN) Positive A (Negative) COVID-19 Clin Com See Note 05/28/22 05/28/22 05/28/22 Range/Units 06:26 06:26 06:27 WBC (4.8-10.8) X10*3/uL RBC (4.20-5.50) X10*6/uL Hgb (12.0-16.0) g/dl Hct (37.0-47.0) % MCV (80.0-98.0) fL MCH (27.0-33.0) pg MCHC (31.0-35.0) g/dl RDW (11.0-16.0) % Plt Count (160-400) X10*3/uL MPV (9.4-12.3) fL Immature Gran % (Auto) (0.0-0.4) % Neut % (Auto) (45-73) % Lymph % (Auto) (20-40) % [place] % (Auto) (2-11) % Eos % (Auto) (0-4) % Baso % (Auto) (0-2) % Lymph # (Auto) (1.2-4.9) X10*3/uL [place] # (Auto) (0.1-1.2) X10*3/uL Eos # (Auto) (0.0-0.4) X10*3/uL Baso # (Auto) (0.0-0.2) X10*3/uL Abs Immat Gran (auto) (0.00-0.03) X10*3/uL Absolute Neuts (auto) (2.0-8.3) x10*3/uL Absolute Nucleated RBC (0.0-0.012) X10*3/uL Nucleated RBC % (auto) (0.0-0.2) /100WBC D-Dimer High Sensitivty 475 NG/ML Sodium (135-145) mmol/L Potassium (3.3-5.1) mmol/L Chloride (96-108) mmol/L Carbon Dioxide (22-29) mmol/L Anion Gap (12-20) BUN (9-16) mg/dL Creatinine (0.5-1.4) mg/dL Estim Creat Clear Calc Estimated GFR Random Glucose (60-115) mg/dL Lactic Acid 1.0 (0.5-2.0) mmol/L Calcium (8.4-10.2) mg/dL Magnesium (1.6-2.6) mg/dL Total Bilirubin (0.0-1.0) mg/dL Direct Bilirubin (0.0-0.5) mg/dL AST (5-31) U/L ALT (0-31) U/L Alkaline Phosphatase (39-117) U/L Troponin I High Sens < 3.5 (<3.5-17.0) ng/L Total Protein (6.5-8.0) g/dL Albumin (3.5-5.0) g/dL Lipase (8-78) U/L COVID-19 (SUZAN) (Negative) COVID-19 Clin Com ECG Data Attestation: I personally reviewed and interpreted this ECG as follows: ECG interpretation date: 05/28/22 ECG interpretation time: 05:01 Interpretation: Rate:81 Rhythm: NSR [place]: left Normal P waves. Normal MILLY. Normal QRS complex. ST T wave : no GONZALES, inverted t waves V1-V6 qTC: normal prior studies: none available The study has been interpreted contemporaneously by me. . Discharge Plan Discharge Clinical Impression: COVID-19, FABIANO (acute kidney injury) Vomiting Qualifiers: Vomiting type: unspecified Nausea presence: with nausea Qualified Code(s): R11.2 - Nausea with vomiting, unspecified Diarrhea Qualifiers: Diarrhea type: unspecified type Qualified Code(s): R19.7 - Diarrhea, unspecified Patient Disposition: Still a Patient
[2022-05-28] MEDS: ondansetron HCL 4 MG/2 ML VIAL IVPUSH (05:27)
[2022-05-28] MEDS: Morphine Sulfate 4 MG/ML CARTRIDGE IVPUSH (05:27)
[2022-05-28] MEDS: 0.9 % Sodium Chloride 1,000 ML 999 ML IVCONT (05:29)
[2022-05-28 06:28] LABS: MANUAL DIFF FLAG NO
[2022-05-28 06:33] LABS: Basophils Percent Auto 0.2 % (0-2); Eosinophils Percent Auto 0.2 % (0-4); Hematocrit 39.9 % (37.0-47.0); Imm Gran Abs Auto 0.02 X10*3/uL (0.00-0.03); Imm Gran Pct Auto 0.3 % (0.0-0.4); Lymphocytes Absolute Auto 0.7 X10*3/uL (1.2-4.9); Mean Corpuscular HGB Conc 32.6 g/dl (31.0-35.0); Mean Corpuscular Hemoglobin 26.5 pg (27.0-33.0); Mean Corpuscular Volume 81.4 fL (80.0-98.0); Mean Platelet Volume 9.2 fL (9.4-12.3); Monocytes Absolute Auto 0.5 X10*3/uL (0.1-1.2); Monocytes Percent Auto 7.4 % (2-11); Neutrophils Absolute Auto 5.4 x10*3/uL (2.0-8.3); Neutrophils Percent Auto 81.9 % (45-73); Platelet Count 326 X10*3/uL (160-400); Red Cell Distribution Width 16.5 % (11.0-16.0); White Blood Count 6.6 X10*3/uL (4.8-10.8)
[2022-05-28 06:35] LABS: COVID-19 Test Positive (Negative)
[2022-05-28 06:36] LABS: D Dimer High Sensitivity 475 NG/ML
[2022-05-28 06:49] LABS: Troponin-I High Sensitivity < 3.5 ng/L (<3.5-17.0)
[2022-05-28 06:57] LABS: Alanine Aminotransferase 18 U/L (0-31); Albumin Level 4.1 g/dL (3.5-5.0); Alkaline Phosphatase 95 U/L (39-117); Anion Gap 21 (12-20); Aspartate Amino Transferase 22 U/L (5-31); Bilirubin Direct 0.4 mg/dL (0.0-0.5); Bilirubin Total 0.9 mg/dL (0.0-1.0); Blood Urea Nitrogen 27 mg/dL (9-16); Calcium 8.7 mg/dL (8.4-10.2); Carbon Dioxide 20 mmol/L (22-29); Chloride 100 mmol/L (96-108); Creatinine Clr Calc Pharmacy 33.4; Estimated Glomerular Filt Rate 27; Glucose Random 122 mg/dL (60-115); Lipase 8 U/L (8-78); Magnesium 2.4 mg/dL (1.6-2.6); Potassium 3.8 mmol/L (3.3-5.1); Sodium 137 mmol/L (135-145); Total Protein 8.4 g/dL (6.5-8.0)
[2022-05-28 07:08] LABS: Lactate Dehydrogenase 183 U/L (122-220)
[2022-05-28] MEDS: Morphine Sulfate 2 MG/ML CARTRIDGE 1 MG IVPUSH ×2 (10:20→20:24)
[2022-05-28] MEDS: 0.9 % Sodium Chloride 1,000 ML 999 ML IV ×2 (10:20→12:03)
[2022-05-28 12:41] LABS: Appearance Urine Cloudy; Color Urine Dark Yellow; Glucose Urine UA Negative (Negative); Leukocyte Esterase Urine Negative (Negative); Nitrite Urine Positive (Negative); Specific Gravity - Urine 1.025 (1.005-1.025); Urine Blood Trace (Negative); Urine Ketones Negative (Negative); Urine Protein 100 (2+) mg/dL (Neg-Trace)
[2022-05-28 12:55] LABS: Bacteria Urine 2+ (None Seen); Granular Casts Urine Present; RBC Urine 0-2 /HPF (0-2); UACC Culture Trigger YES; WBC Urine 0-5 /HPF (0-5)
--- NOTE | 2022-05-28 13:35 | PM.IMHP ---
History of Present Illness Date of Service: 05/28/22 Attending physician on admission: Leo Carrera Chief Complaint: Ileus, COVID19 61 year old female with history of crohns disease with history partial colectomy on pentasa, hypothyroidism, and gerd diagnosed with COVID-19 4 days ago on paxlovid presented to the ED today with worsening diarrhea and vomiting symptoms. Patient started with sinus congestion Monday and presented to urgent the next day and was diagnosed with COVID-19. She is fully vaccinated and boosted x2. She was prescribed pxlovid. Since then has developed worsening myalgias with watery diarrhea throughout the day, 3-4 brown (reports occassional coffee ground emesis as well as food contents) vomiting episodes, diffuse nonradiating abdominal pain, and intolerance of po intake. In ED, creat elevated at 1.89, BUN 27(no baseline available but denies hx ckd), no leukocytosis or anemia. D-dimer 275. UA with nitrite pos urine with 1+ blood, 2+ bacteria, neg leuks. CXR neg. Pulmonary perfusion study neg for PE. Abd/pelvis CT showing partial colectomy with fluid throughout mildly dilated large and small bowell as well as rectal vault suggestive of hypersecretion and mild ileus. No fevers, chills, dysuria, hematuria, urinary urgency, shortness of breath, palpitations, lightheadedness, or chest pain. Review of Systems Review of Systems: General: No fevers, malaise, unintentional weight loss HEENT: +sinus pressure. No sore throat Cardiovascular: No chest pain, palpitations, or leg edema Respiratory: No shortness of breath, wheezing, cough GI: +diffuse abd pain, +n/v, +diarrhea. No constipation, melena, hematochezia MSK: +myalgia Neuro: No headaches, weakness, paresthesias Skin: No rashes or lesions [facility] Medical History (Updated 05/28/22 @ 13:55 by DELMI Smith) COVID-19 Crohn disease GERD (gastroesophageal reflux disease) Hypothyroid Family History (Updated 05/28/22 @ 13:54 by DELMI Smith) Mother Diabetes Paternal Grandmother Diabetes Father Lung cancer Paternal Uncle Lung cancer Surgical History History of bowel resection Social History Patient Tobacco Use Status: Never used Tobacco Advance Directives: No Advance Directives Information Provided: No Meds Allergies Allergy/AdvReac Type Severity Reaction Status Date / Time No Known Allergies Allergy Verified 05/28/22 04:52 Active Medications: Current Medications Enoxaparin Sodium (Enoxaparin Sodium 40 Mg/0.4 Ml Syringe) 40 mg SUBCUT Q24H [facility] Sodium Chloride (Ns) 1,000 mls @ 100 mls/hr IVCONT .Q10H [facility] Pharmacy Consult (Consult Rx Perform Med Rec) 1 each MISCELLANE ONCE PRN PRN Reason: Consult order Sodium Chloride (0.9 % Sodium Chloride Flush 3 Ml Syringe) 3 ml IVFLUSH QSHIFT [facility] Home Medications Medication Instructions Recorded Confirmed Last Taken Type calcium carbonate 600 mg calcium 600 mg PO DAILY 05/28/22 05/28/22 Unknown History (1,500 mg) tablet (Calcium) levothyroxine 88 mcg tablet 88 mcg PO DAILY 05/28/22 05/28/22 Unknown History mesalamine 500 mg capsule,extended 1,000 mg PO QID 05/28/22 05/28/22 Unknown History release (Pentasa) pantoprazole 40 mg tablet,delayed 40 mg PO DAILY 05/28/22 05/28/22 Unknown History release Physical Exam Vital Signs and Narrative: Vital Signs: Last Vital Signs Temp 97.8 F 05/28/22 12:18 Pulse 74 05/28/22 12:18 Resp 18 05/28/22 12:18 BP 126/71 05/28/22 12:18 Pulse Ox 97 05/28/22 12:18 O2 Del Method 05/28/22 12:18 BMI result Body Mass Index 29.9 Results Labs CBC and Chem 7: 05/28/22 06:26 05/29/22 06:39 Labs: Laboratory Results - last 24 hr 05/28/22 05/28/22 05/28/22 06:24 06:26 06:26 MCV 81.4 MCH 26.5 L MCHC 32.6 RDW 16.5 H Plt Count 326 MPV 9.2 L Immature Gran % (Auto) 0.3 Neut % (Auto) 81.9 H Lymph % (Auto) 10.0 L [place] % (Auto) 7.4 Eos % (Auto) 0.2 Baso % (Auto) 0.2 Lymph # (Auto) 0.7 L [place] # (Auto) 0.5 Eos # (Auto) 0.0 Baso # (Auto) 0.0 Abs Immat Gran (auto) 0.02 Absolute Neuts (auto) 5.4 Absolute Nucleated RBC 0.000 Nucleated RBC % (auto) 0.0 D-Dimer High Sensitivty Anion Gap 21 H Estim Creat Clear Calc 33.4 Estimated GFR 27 Random Glucose 122 H Lactic Acid Calcium 8.7 Magnesium 2.4 Total Bilirubin 0.9 Direct Bilirubin 0.4 AST 22 ALT 18 Alkaline Phosphatase 95 Lactate Dehydrogenase 183 Total Protein 8.4 H Albumin 4.1 Lipase 8 Urine Color Urine Appearance Urine pH Ur Specific [place] Urine Protein Urine Glucose (UA) Urine Ketones Urine Blood Urine Nitrite Ur Leukocyte Esterase Urine RBC Urine WBC Ur Squamous Epith Cells Urine Bacteria Hyaline Casts Granular Casts COVID-19 (SUZAN) Positive A COVID-19 Clin Com See Note 05/28/22 05/28/22 05/28/22 06:26 06:27 12:20 MCV MCH MCHC RDW Plt Count MPV Immature Gran % (Auto) Neut % (Auto) Lymph % (Auto) [place] % (Auto) Eos % (Auto) Baso % (Auto) Lymph # (Auto) [place] # (Auto) Eos # (Auto) Baso # (Auto) Abs Immat Gran (auto) Absolute Neuts (auto) Absolute Nucleated RBC Nucleated RBC % (auto) D-Dimer High Sensitivty 475 Anion Gap Estim Creat Clear Calc Estimated GFR Random Glucose Lactic Acid 1.0 Calcium Magnesium Total Bilirubin Direct Bilirubin AST ALT Alkaline Phosphatase Lactate Dehydrogenase Total Protein Albumin Lipase Urine Color Dark Yellow Urine Appearance Cloudy Urine pH 5.0 Ur Specific [place] 1.025 Urine Protein 100 (2+) H Urine Glucose (UA) Negative Urine Ketones Negative Urine Blood Trace H Urine Nitrite Positive H Ur Leukocyte Esterase Negative Urine RBC 0-2 Urine WBC 0-5 Ur Squamous Epith Cells 6-10 Urine Bacteria 2+ Hyaline Casts 3-5 Granular Casts Present COVID-19 (SUZAN) COVID-19 Clin Com Imaging Radiologist's Impressions: Impressions Chest X-Ray 05/28/22 07:30 FINDINGS/IMPRESSION: The study is limited by portable technique and suboptimal inspiration. There is no gross acute radiographic finding. No focal infiltrate, effusion, or pneumothorax is seen. A small right midlung linear density suggests atelectasis and/or fibrotic change. The heart appears normal in size. Surgical clips project over the left upper mediastinum. Bowel is interposed between the liver and the right hemidiaphragm, which is mildly elevated. Abdomen/Pelvis CT 05/28/22 07:38 IMPRESSION: Suspect partial colectomy. Fluid throughout mildly dilated large and small bowel as well as within the rectal vault. Findings suggest hypersecretion and mild ileus. Approximately 1 cm L4 sclerotic lesion, not otherwise characterized. No other sclerotic or lytic bony lesion identified. In the absence of known or suspected malignancy elsewhere (for example, breast cancer), the finding probably represents a bone island. Recommend clinical correlation. Additional findings, as above. Pulmonary Perfusion Imaging 05/28/22 09:45 IMPRESSION: Based on perfusion only modified PIOPED 2 criteria, pulmonary thromboembolism is absent. Assessment and Plan (1) Ileus due to infection: Status: Acute (2) COVID-19: Status: Acute (3) FABIANO (acute kidney injury): Status: Acute Plan 61 year old female with history of crohns disease with history partial colectomy on pentasa, hypothyroidism, and gerd diagnosed with COVID-19 4 days ago on paxlovid admitted for management of ileus and FABIANO. 1-Ileus- likely related to diarrhea associated with COVID-19 with history of partial colectomy -Keep NPO -General surgery consulted -Ondansetron for n/v prn -Stool studies including cdiff ordered to rule out infectious diarrhea 2-FABIANO- likely secondary to dehydration from diarrhea and vomiting -Creat 1.89, BUN 29 (baseline not available) -Recevied IVF bolus in ED. Continue IVF 100ml/hr after bolus -Follow BMP daily 3-COVID-19 infection- no hypoxia, afebrile -Continue home paxlovid -Flonase prn for sinus congestion 4-Abnormal UA- urine culture pending -Pt denies urinary symtpoms -UA pos nitrites, 1+blood, 2+bacteria, neg leuks -Hold empiric therapy at this time, await culture results 4-Crohns disease- stable. N/V and diarrhea likely r/t COVID-19 infection, not crohns exacerbation -Continue pentasa 5-Hypothyroidism -Continue levothyroxine 6-GERD- stable -Continue pantoprazole DVT prophylaxis- lovenox Full code Pt requires inpt stay at least 2 midnights due to ileus and FABIANO requiring IV fluids and NPO status with gradual advancement of diet and requires close monitoring of renal function. Quality Stroke Does the patient have a stroke diagnosis?: No VTE Prior VTE?: No VTE Risk Level:: Medical - moderate - high VTE Device Contraindication: Treatment Not Indicated VTE Drug Contraindication: N/A - Med Ordered
[2022-05-28] MEDS: Enoxaparin Sodium 40 MG/0.4 ML SYRINGE SUBCUT (13:58)
[2022-05-28] MEDS: Fluticasone Propionate Nasal 16 GM SPRAY 1 SPRAY NOSTRIL-B (14:36)
[2022-05-28] MEDS: 0.9 % Sodium Chloride 1,000 ML 100 ML IVCONT (14:36)
--- NOTE | 2022-05-28 15:03 | PM.EVENT ---
Event Note Date of Service: 05/28/22 Event Note: This patient is seen and examined with [facility]. Patient in the hospital because of nausea vomiting and diarrhea also has diffuse abdominal pain she said it started 4 days duration, her cousin was sick with COVID had similar symptoms and subsequently her primary doctor prescribed paxlovid would which made the symptoms worse. She only took it for 1 day. But still keep having persistent nausea vomiting and diarrhea and decided to come to the hospital. Lab imaging: Patient was found to have a KI-BUN of 27 and creatinine 1.9, lactic acid normal. UA shows pyuria/bacteriuria CT abdomen shows-possible ileus. Lactic acid normal Physical exam: Appearance: Alert.? Oriented X3.? cvs: rrr, [id number] , no murmur res: clear to auscultation ,no rhonchii or wheezing abd: no rebound or guarding ,diffuse abd pain , norebound or guarding ,bs present. ext pulses present , no cyanosis. neuro: axo3 , nonfocal. assessment and plan coordinated in APCs note, Agree with the plan in addition: Persistent nausea vomiting diarrhea? Possibly COVID related versus IBD Continue supportive care with hydration, bowel rest, antiemetics, pain control prn morphine,GI evaluation may need surgery eval if does not improve
--- NOTE | 2022-05-28 15:18 | PM.CNGS ---
History of Present Illness Consult details Consult date: 05/28/22 Narrative: 61 year old female with history of crohns disease with history partial colectomy on pentasa, hypothyroidism, and gerd diagnosed with COVID-19 4 days ago on paxlovid presented to the ED today with worsening diarrhea and vomiting symptoms. Patient started with sinus congestion Monday and presented to urgent the next day and was diagnosed with COVID-19. She is fully vaccinated and boosted x2. She was prescribed pxlovid. Since then has developed worsening myalgias with watery diarrhea throughout the day, 3-4 brown (reports occassional coffee ground emesis as well as food contents) vomiting episodes, diffuse nonradiating abdominal pain, and intolerance of po intake. In ED, creat elevated at 1.89, BUN 27(no baseline available but denies hx ckd), no leukocytosis or anemia. D-dimer 275. UA with nitrite pos urine with 1+ blood, 2+ bacteria, neg leuks. CXR neg. Pulmonary perfusion study neg for PE. Abd/pelvis CT showing partial colectomy with fluid throughout mildly dilated large and small bowell as well as rectal vault suggestive of hypersecretion and mild ileus. No fevers, chills, dysuria, hematuria, urinary urgency, shortness of breath, palpitations, lightheadedness, or chest pain. [facility] Past Medical History Medical History (Updated 05/28/22 @ 13:55 by DELMI Smith) COVID-19 Crohn disease GERD (gastroesophageal reflux disease) Hypothyroid Family History Family History (Updated 05/28/22 @ 13:54 by DELMI Smith) Mother Diabetes Paternal Grandmother Diabetes Father Lung cancer Paternal Uncle Lung cancer Surgical History Surgical History History of bowel resection Social History Social History Patient Tobacco Use Status: Never used Tobacco Advance Directives: No Advance Directives Information Provided: No service: No Current occupational status: disabled Meds Allergies Allergy/AdvReac Type Severity Reaction Status Date / Time No Known Allergies Allergy Verified 05/28/22 04:52 Active Medications: Current Medications Enoxaparin Sodium (Enoxaparin Sodium 40 Mg/0.4 Ml Syringe) 40 mg SUBCUT Q24H [facility] Last Admin: 05/28/22 13:58 Dose: 40 mg Fluticasone Propionate (Fluticasone Propionate Nasal 16 Gm [place]) 1 spray NOSTRIL-B DAILY [facility] Last Admin: 05/28/22 14:36 Dose: 1 spray Sodium Chloride (Ns) 1,000 mls @ 100 mls/hr IVCONT .Q10H [facility] Last Admin: 05/28/22 14:36 Dose: 100 mls/hr Ondansetron HCl (Ondansetron Hcl 4 Mg/2 Ml Vial) 4 mg IVPUSH Q8H PRN PRN Reason: Nausea and Vomiting Pharmacy Consult (Consult Rx Perform Med Rec) 1 each MISCELLANE ONCE PRN PRN Reason: Consult order Sodium Chloride (0.9 % Sodium Chloride Flush 3 Ml Syringe) 3 ml IVFLUSH QSHIFT [facility] Last Admin: 05/28/22 15:10 Dose: Not Given Home Medications Medication Instructions Recorded Confirmed Last Taken Type calcium carbonate 600 mg calcium 600 mg PO DAILY 05/28/22 05/28/22 Unknown History (1,500 mg) tablet (Calcium) levothyroxine 88 mcg tablet 88 mcg PO DAILY 05/28/22 05/28/22 Unknown History mesalamine 500 mg capsule,extended 1,000 mg PO QID 05/28/22 05/28/22 Unknown History release (Pentasa) pantoprazole 40 mg tablet,delayed 40 mg PO DAILY 05/28/22 05/28/22 Unknown History release Physical Exam Vital Signs: Vital Signs: Last Vital Signs Temp 97.8 F 05/28/22 12:18 Pulse 74 05/28/22 12:18 Resp 18 05/28/22 12:18 BP 126/71 05/28/22 12:18 Pulse Ox 97 05/28/22 12:18 O2 Del Method 05/28/22 12:18 BMI result Body Mass Index 29.9 Patient is nontoxic Abdomen is overweight but without peritoneal irritation to percussion. Results Labs Result diagrams: 05/28/22 06:26 05/29/22 06:39 Labs: Abnormal lab results 05/28/22 05/28/22 05/28/22 Range/Units 06:24 06:26 06:26 MCH 26.5 L (27.0-33.0) pg RDW 16.5 H (11.0-16.0) % MPV 9.2 L (9.4-12.3) fL Neut % (Auto) 81.9 H (45-73) % Lymph % (Auto) 10.0 L (20-40) % Lymph # (Auto) 0.7 L (1.2-4.9) X10*3/uL Carbon Dioxide 20 L (22-29) mmol/L Anion Gap 21 H (12-20) BUN 27 H (9-16) mg/dL Creatinine 1.89 H (0.5-1.4) mg/dL Random Glucose 122 H (60-115) mg/dL Total Protein 8.4 H (6.5-8.0) g/dL Urine Protein (Neg-Trace) mg/dL Urine Blood (Negative) Urine Nitrite (Negative) COVID-19 (SUZAN) Positive A (Negative) 05/28/22 Range/Units 12:20 MCH (27.0-33.0) pg RDW (11.0-16.0) % MPV (9.4-12.3) fL Neut % (Auto) (45-73) % Lymph % (Auto) (20-40) % Lymph # (Auto) (1.2-4.9) X10*3/uL Carbon Dioxide (22-29) mmol/L Anion Gap (12-20) BUN (9-16) mg/dL Creatinine (0.5-1.4) mg/dL Random Glucose (60-115) mg/dL Total Protein (6.5-8.0) g/dL Urine Protein 100 (2+) H (Neg-Trace) mg/dL Urine Blood Trace H (Negative) Urine Nitrite Positive H (Negative) COVID-19 (SUZAN) (Negative) Short CBC 05/28/22 Range/Units 06:26 WBC 6.6 (4.8-10.8) X10*3/uL Hgb 13.0 (12.0-16.0) g/dl Hct 39.9 (37.0-47.0) % Plt Count 326 (160-400) X10*3/uL BMP 05/28/22 06:26 Sodium 137 Potassium 3.8 Chloride 100 Carbon Dioxide 20 L BUN 27 H Creatinine 1.89 H Calcium 8.7 Liver Function 05/28/22 Range/Units 06:26 Total Bilirubin 0.9 (0.0-1.0) mg/dL Direct Bilirubin 0.4 (0.0-0.5) mg/dL AST 22 (5-31) U/L ALT 18 (0-31) U/L Alkaline Phosphatase 95 (39-117) U/L Albumin 4.1 (3.5-5.0) g/dL Urine 05/28/22 Range/Units 12:20 Urine Color Dark Yellow Urine Appearance Cloudy Urine pH 5.0 (5.0-9.0) Ur Specific [place] 1.025 (1.005-1.025) Urine Protein 100 (2+) H (Neg-Trace) mg/dL Urine Glucose (UA) Negative (Negative) mg/dL All other labs normal. Imaging Abdomen CT scan report/results: report reviewed and image reviewed CT scan - pelvis: report reviewed and image reviewed Assessment and Plan (1) Ileus due to infection: Status: Acute (2) Vomiting: Qualifiers: Nausea presence: with nausea Vomiting type: unspecified Qualified Code(s): R11.2 - Nausea with vomiting, unspecified Status: Acute (3) Diarrhea: Qualifiers: Diarrhea type: unspecified type Qualified Code(s): R19.7 - Diarrhea, unspecified Status: Acute (4) FABIANO (acute kidney injury): Status: Acute Plan NPO & await bowel function No acute surgical intervention at this time. Consider GI consult re: ? colon decompression (if needed, IVF & clinical observation for now) and management for Crohns med management Procedures Date of Service Date of Service: 05/29/22
--- NOTE | 2022-05-28 15:34 | PHA.MEDREC ---
Pharmacy Consult ? Medication Reconciliation Pharmacy has completed the medication reconciliation.
--- NOTE | 2022-05-28 20:01 | PC.NURSE ---
Pt resting comfortably, pericare and linen change provided by tech at this time. No complaints of pain at this time. Call islas within reach, COVID precautions in place. Will continue to monitor.
--- NOTE | 2022-05-28 20:09 | PC.NURSE ---
Pt was incontinent of urine and stool. Cleaned up and new linens in place @1950
[2022-05-29 04:00] VITALS: BP 136/76; PULSE 69; RESP 18
[2022-05-29] MEDS: Morphine Sulfate 2 MG/ML CARTRIDGE 1 MG IVPUSH ×3 (04:20→20:08)
[2022-05-29] MEDS: 0.9 % Sodium Chloride 1,000 ML 100 ML IVCONT (04:21)
--- NOTE | 2022-05-29 06:51 | PC.NURSE ---
pt endorsing 6/10 abdominal pain at this time, asking when she would be due for her next med dose. RN educated pt on q4 hour with next dose after 0800. RN sent tigerconnect message to Hospitalist to inquire about change frequency and/or increasing the dose. The pt is also NPO for surgery consult with no specifications if it is okay for the pt to have medications with water or not, message also sent for clarifcation. RN will hold off on medical staff director until clarification received. Pt's Right upper arm IV line is not flushing, RN had to resecure IV line earlier this morning to ensure proper flow which allowed for easy flushing and admin of fluids. Pt denies pain to the site, there is no visible swelling, coolness to touch. RN stopped infusion and pt will require a new IV.
[2022-05-29 07:07] LABS: Anion Gap 14 (12-20); Blood Urea Nitrogen 17 mg/dL (9-16); Calcium 7.6 mg/dL (8.4-10.2); Carbon Dioxide 17 mmol/L (22-29); Chloride 116 mmol/L (96-108); Creatinine Clr Calc Pharmacy 73.4; Estimated Glomerular Filt Rate > 60; Glucose Random 81 mg/dL (60-115); Potassium 3.7 mmol/L (3.3-5.1); Sodium 143 mmol/L (135-145)
[2022-05-29] MEDS: Levothyroxine Sodium 88 MCG TABLET PO (08:00)
[2022-05-29] MEDS: 0.9 % Sodium Chloride Flush 3 ML SYRINGE IVFLUSH ×2 (08:02→16:10)
[2022-05-29 08:04] VITALS: BP 113/56; PULSE 58; RESP 20; TEMP 36.4; O2SAT 99
--- NOTE | 2022-05-29 08:16 | PC.NURSE ---
Patient is alert and oriented. skin pink, warm and dry. respiration even and unlabored. lungs sounds clear. Abdomen tender to touch, BS hyperactive. patient had diarrhea. Patient reports pain at 8/10. vital signs stable.
[2022-05-29] MEDS: Lactated Ringers 1,000 ML 80 ML IVCONT (09:13)
--- NOTE | 2022-05-29 09:19 | PC.NURSE ---
Patient can't swallow big pills or capsules. Omeprazole not given.
--- NOTE | 2022-05-29 09:21 | PC.NURSE ---
Patient only took 250 of mesalamine due to not able to swallow capsule
--- NOTE | 2022-05-29 10:05 | MHC.CM.PN ---
Patient is living in a duplex with her Cousin, since her Cousin's Mother passed. Patient required no DME nor services [employer]. Home no services is the goal and CM has initiated and will follow for dc planning. Patient has a new PCP in [place] and she has received [employer] vax x3.
--- NOTE | 2022-05-29 12:03 | PM.EVENT ---
Event Note Date of Service: 05/29/22 Event Note: GI consult dictated N/V/D is likely related to a viral process, not an exacerbation of CD agree with supportive care, check stool studies, continue mesalamine.
--- NOTE | 2022-05-29 12:15 | P.PNIM_ITS ---
Subjective Subjective Date of Service: 05/29/22 Interval History: Ielus vs crohn dis Review of Systems abd pain , feels nauseated denies any chest pain or shortness of breath or fever chills passing gases,also said diarrhae Physical Exam Vital Signs: Vital Signs: Last Vital Signs Temp 97.6 F 05/29/22 08:04 Pulse 58 05/29/22 08:04 Resp 20 05/29/22 08:04 BP 113/56 L 05/29/22 08:04 Pulse Ox 99 05/29/22 08:04 O2 Del Method 05/29/22 08:04 BMI result Body Mass Index 29.9 Appearance: Alert.? Oriented X3.? cvs: rrr, [id number] , no murmur res: clear to auscultation ,no rhonchii or wheezing abd: no rebound or guarding ,diffuse abd pain , no rebound or guarding ,bs present. ext pulses present , no cyanosis. neuro: axo3 , nonfocal. Objective Data Active Medications Enoxaparin Sodium (Enoxaparin Sodium 40 Mg/0.4 Ml Syringe) 40 mg SUBCUT Q24H [facility] Last Admin: 05/28/22 13:58 Dose: 40 mg Documented By: CLARA Fluticasone Propionate (Fluticasone Propionate Nasal 16 Gm [place]) 1 spray NOSTRIL-B DAILY [facility] Last Admin: 05/29/22 10:10 Dose: Not Given Documented By: AC Non-Admin Reason: Med Not Available Lactated Ringer's (Lr) 1,000 mls @ 80 mls/hr IVCONT .[id number] [facility] Last Admin: 05/29/22 09:13 Dose: 80 mls/hr Documented By: ELTON Promethazine HCl 6.25 mg/ (Sodium Chloride) 50.25 mls @ 201 mls/hr IV Q6H PRN PRN Reason: Nausea Levothyroxine Sodium (Levothyroxine Sodium 88 Mcg Tablet) 88 mcg PO DAILY@0600 [facility] Last Admin: 05/29/22 08:00 Dose: 88 mcg Documented By: ELTON Mesalamine (Mesalamine 250 Mg Capsule.Er) 1,000 mg PO QID [facility] Last Admin: 05/29/22 09:17 Dose: Not Given Documented By: ELTON Non-Admin Reason: Patient cant tolerate PO Morphine Sulfate (Morphine Sulfate 2 Mg/Ml Cartridge) 1 mg IVPUSH Q4H PRN; Protocol PRN Reason: Pain, Mild (Pain Scale 1-3) Last Admin: 05/29/22 04:20 Dose: 1 mg Documented By: ALCIDES Omeprazole (Omeprazole 20 Mg Capsule.Dr) 20 mg PO DAILY@0630 [facility] Last Admin: 05/29/22 09:19 Dose: Not Given Documented By: ELTON Non-Admin Reason: Patient can't tolerate PO Ondansetron HCl (Ondansetron Hcl 4 Mg/2 Ml Vial) 4 mg IVPUSH Q8H PRN PRN Reason: Nausea and Vomiting Pharmacy Consult (Consult Rx Perform Med Rec) 1 each MISCELLANE ONCE PRN PRN Reason: Consult order Sodium Chloride (0.9 % Sodium Chloride Flush 3 Ml Syringe) 3 ml IVFLUSH [facility] Last Admin: 05/29/22 08:02 Dose: 3 ml Documented By: ELTON Labs CBC & Chem 7: 05/28/22 06:26 05/29/22 06:39 Labs: Laboratory Results - last 24 hr 05/28/22 05/28/22 05/29/22 06:26 12:20 06:39 Anion Gap 14 Estim Creat Clear Calc 73.4 Estimated GFR > 60 Random Glucose 81 Calcium 7.6 L D Total Creatine Kinase 66 Urine Color Dark Yellow Urine Appearance Cloudy Urine pH 5.0 Ur Specific [place] 1.025 Urine Protein 100 (2+) H Urine Glucose (UA) Negative Urine Ketones Negative Urine Blood Trace H Urine Nitrite Positive H Ur Leukocyte Esterase Negative Urine RBC 0-2 Urine WBC 0-5 Ur Squamous Epith Cells 6-10 Urine Bacteria 2+ Hyaline Casts 3-5 Granular Casts Present Microbiology Microbiology Results: Microbiology 05/28/22 12:56 Urine Culture - Final Urine clean catch - Clean Catch Midstream Assessment and Plan (1) Ileus due to infection: Status: Acute (2) COVID-19: Status: Acute (3) FABIANO (acute kidney injury): Status: Acute Plan 61 year old female with history of crohns disease with history partial colectomy on pentasa, hypothyroidism, and gerd diagnosed with COVID-19 4 days ago on paxlovid admitted for management of ileus and FABIANO. 1-Ileus- likely related to diarrhea associated with COVID-19 with history of partial colectomy -Keep NPO -Ondansetron for n/v prn -Stool studies including cdiff ordered to rule out infectious diarrhea 2-FABIANO- likely secondary to dehydration from diarrhea and vomiting improving with IVF 100ml/hr -Follow BMP daily 3-COVID-19 infection- no hypoxia, afebrile she says she is off paxlovid because sec worsening abdominal symptoms -Flonase prn for sinus congestion 4-Abnormal UA- urine culture pending -Pt denies urinary symtpoms -UA pos nitrites, 1+blood, 2+bacteria, neg leuks -Hold empiric therapy at this time, await culture results 4-Crohns disease- stable. N/V and diarrhea likely r/t COVID-19 infection, less likely crohns exacerbation -Continue pentasa added Gi eval 5-Hypothyroidism -Continue levothyroxine 6-GERD- stable -Continue pantoprazole DVT prophylaxis- lovenox need for inpatient : Ielus -not tolerating diet, need IV hydration for FABIANO and ileus and IV pain medications Quality Stroke Does the patient have a stroke diagnosis?: No VTE Prior VTE?: No VTE Risk Level:: Medical - moderate - high VTE Device Contraindication: Treatment Not Indicated VTE Drug Contraindication: N/A - Med Ordered
--- NOTE | 2022-05-29 13:12 | CONS_ITS ---
DATE OF SERVICE: 05/29/2022 REFERRING PHYSICIAN: DELMI Smith REASON FOR CONSULTATION: Nausea, vomiting, diarrhea, and history of Crohn disease. HISTORY OF PRESENT ILLNESS: Patient is a pleasant 61-year-old woman who was admitted to the hospital with complaints of nausea, vomiting, and diarrhea. She had loose stools prior to becoming ill last week and does have a history of Crohn disease, which has been treated with Pentasa. Last colonoscopy in 2020 showed ulceration of the neoterminal ileum proximal to the ileocolonic anastomosis from her previous ileocolectomy. Colon biopsies were normal. She felt unwell last week and was diagnosed with COVID-19 on Monday. She started taking Paxlovid but had worsening symptoms of myalgias, nausea, vomiting of nonbloody material and watery diarrhea. She denies any rectal bleeding. She presented to the emergency room where she was evaluated. Laboratory studies were obtained and CT scanning of the abdomen and pelvis was obtained, which is interpreted as showing changes from her colectomy and hypersecretion with mild ileus. She was admitted to the hospital and her Pentasa has been continued. PAST MEDICAL HISTORY: 1. Crohn disease as above. 2. Gastroesophageal reflux disease. 3. Hypothyroidism. 4. Recent COVID-19 infection. CURRENT MEDICATIONS: Her current medication list is reviewed in the chart. ALLERGIES: THERE ARE NONE REPORTED. FAMILY HISTORY: This is reviewed with the patient and is noncontributory. SOCIAL HISTORY: There is no current tobacco, alcohol, or substance abuse. REVIEW OF SYSTEMS: SKIN: No pruritus. HEENT: Negative. CARDIOPULMONARY: No shortness of breath or chest pain. GASTROINTESTINAL: As above. GENITOURINARY: Negative. NEUROPSYCHIATRIC: Negative. PHYSICAL EXAMINATION: GENERAL: Shows a pleasant female, lying comfortably in bed. VITAL SIGNS: Reviewed in electronic medical record and are stable. SKIN: Anicteric. HEENT: Shows no scleral icterus. NECK: Without lymphadenopathy or thyromegaly. LUNGS: Clear. HEART: Regular rate and rhythm. S1, S2. No murmur. ABDOMEN: Soft with bowel sounds present. There is a well-healed midline incision from her previous surgery. EXTREMITIES: Without edema. LABORATORY DATA: Laboratory data and CT scan are reviewed. IMPRESSION: Nausea and vomiting with diarrhea. Her symptoms appear most consistent with a viral gastroenteritis rather than exacerbated of Crohn disease. This could be related to her recent COVID infection as well. I agree with treating her symptomatically with antibiotics, IV fluids, and obtaining stool specimens. I would not recommend steroids at this time. Her mesalamine is being continued. Thanks for asking me to see her. I will follow her in the hospital with you. MD JESSICA Stacy/KATIE / [id number]
[2022-05-29 15:37] LABS: Leukocytes Stool Qualitative FEW: < 2/OIF (NEGATIVE)
[2022-05-29 16:00] VITALS: BP 135/65; PULSE 65; RESP 16; TEMP 36.9; O2SAT 98
[2022-05-29] MEDS: Enoxaparin Sodium 40 MG/0.4 ML SYRINGE SUBCUT (16:05)
[2022-05-29] MEDS: Mesalamine 250 MG CAPSULE.ER 1000 MG PO ×2 (16:05→20:08)
[2022-05-29 19:16] LABS: CDiff Gene PCR NEGATIVE (Negative)
[2022-05-29 20:00] VITALS: BP 138/64; PULSE 63; RESP 16; TEMP 36.6; O2SAT 96
[2022-05-30] MEDS: Morphine Sulfate 2 MG/ML CARTRIDGE 1 MG IVPUSH ×5 (02:26→23:52)
[2022-05-30] MEDS: Lactated Ringers 1,000 ML 80 ML IVCONT ×2 (06:13→18:15)
[2022-05-30 06:17] VITALS: BP 136/70; PULSE 60; RESP 18; TEMP 36.1; O2SAT 95
[2022-05-30 08:26] VITALS: BP 135/64; PULSE 52; RESP 20; TEMP 36.7; O2SAT 96
[2022-05-30] MEDS: Throat Lozenge, Medicated LOZENGE 1 LOZENGE MUCOUS MEM (08:30)
[2022-05-30] MEDS: 0.9 % Sodium Chloride Flush 3 ML SYRINGE IVFLUSH (08:30)
[2022-05-30] MEDS: Levothyroxine Sodium 88 MCG TABLET PO (08:30)
[2022-05-30] MEDS: Fluticasone Propionate Nasal 16 GM SPRAY 1 SPRAY NOSTRIL-B (08:34)
[2022-05-30 13:08] VITALS: BP 145/73; PULSE 56; RESP 20; TEMP 36.8; O2SAT 95
[2022-05-30] MEDS: Enoxaparin Sodium 40 MG/0.4 ML SYRINGE SUBCUT (14:46)
[2022-05-30] MEDS: Mesalamine 250 MG CAPSULE.ER 1000 MG PO ×3 (14:47→20:31)
[2022-05-30 15:02] VITALS: BP 168/48; PULSE 56; RESP 20; O2SAT 97
--- NOTE | 2022-05-30 15:10 | HO.PM.IMPN ---
Subjective Subjective Date of Service: 05/30/22 Interval History: Persistent nausea vomiting Review of Systems Symptom on similar to yesterday Abdominal pain is slightly better Denies any chest pain or shortness of breath or fever or chills. Physical Exam Vital Signs: Vital Signs: Last Vital Signs Temp 98.3 F 05/30/22 13:08 Pulse 56 05/30/22 13:08 Resp 20 05/30/22 13:08 BP 145/73 H 05/30/22 13:08 Pulse Ox 95 05/30/22 13:08 O2 Del Method 05/30/22 13:08 BMI result Body Mass Index 29.9 Appearance: Alert.? Oriented X3.? cvs: rrr, [id number] , no murmur res: clear to auscultation ,no rhonchii or wheezing abd: no rebound or guarding ,diffuse abd pain , no rebound or guarding ,bs present. ext pulses present , no cyanosis. neuro: axo3 , nonfocal. Objective Data Active Medications Benzocaine (Throat Lozenge, Medicated Lozenge) 1 lozenge MUCOUS MEM Q2H PRN PRN Reason: Sore Throat Last Admin: 05/30/22 08:30 Dose: 1 lozenge Documented By: FERMIN Enoxaparin Sodium (Enoxaparin Sodium 40 Mg/0.4 Ml Syringe) 40 mg SUBCUT Q24H [facility] Last Admin: 05/30/22 14:46 Dose: 40 mg Documented By: FERMIN Fluticasone Propionate (Fluticasone Propionate Nasal 16 Gm [place]) 1 spray NOSTRIL-B DAILY [facility] Last Admin: 05/30/22 08:34 Dose: 1 spray Documented By: FERMIN Lactated Ringer's (Lr) 1,000 mls @ 80 mls/hr IVCONT .[id number] [facility] Last Admin: 05/30/22 06:13 Dose: 80 mls/hr Documented By: VIKAS Promethazine HCl 6.25 mg/ (Sodium Chloride) 50.25 mls @ 201 mls/hr IV Q6H PRN PRN Reason: Nausea Levothyroxine Sodium (Levothyroxine Sodium 88 Mcg Tablet) 88 mcg PO DAILY@0600 [facility] Last Admin: 05/30/22 08:30 Dose: 88 mcg Documented By: FERMIN Mesalamine (Mesalamine 250 Mg Capsule.Er) 1,000 mg PO QID [facility] Last Admin: 05/30/22 14:47 Dose: 1,000 mg Documented By: FERMIN Morphine Sulfate (Morphine Sulfate 2 Mg/Ml Cartridge) 1 mg IVPUSH Q4H PRN; Protocol PRN Reason: Pain, Mild (Pain Scale 1-3) Last Admin: 05/30/22 08:30 Dose: 1 mg Documented By: FERMIN Omeprazole (Omeprazole 20 Mg Capsule.Dr) 20 mg PO DAILY@0630 [facility] Last Admin: 05/30/22 06:21 Dose: Not Given Documented By: VIKAS Non-Admin Reason: Patient Refused Ondansetron HCl (Ondansetron Hcl 4 Mg/2 Ml Vial) 4 mg IVPUSH Q8H PRN PRN Reason: Nausea and Vomiting Pharmacy Consult (Consult Rx Perform Med Rec) 1 each MISCELLANE ONCE PRN PRN Reason: Consult order Sodium Chloride (0.9 % Sodium Chloride Flush 3 Ml Syringe) 3 ml IVFLUSH QSHIFT [facility] Last Admin: 05/30/22 08:30 Dose: 3 ml Documented By: FERMIN Labs CBC & Chem 7: 05/28/22 06:26 05/29/22 06:39 Labs: Laboratory Results - last 24 hr 05/29/22 05/29/22 14:52 14:52 Stool Leukocytes, Qual FEW: < 2/OIF C. difficile Tox B Gene NEGATIVE Microbiology Microbiology Results: Microbiology 05/28/22 12:56 Urine Culture - Final Urine clean catch - Clean Catch Midstream Assessment and Plan (1) Diarrhea: Status: Acute (2) Vomiting: Status: Acute Plan 61 year old female with history of crohns disease with history partial colectomy on pentasa, hypothyroidism, and gerd diagnosed with COVID-19 4 days ago on paxlovid admitted for management of ileus and FABIANO. 1-possible gastroenteritis likely related to diarrhea associated with COVID-19 with history of partial colectomy stool wbc <2 ,cdiff neg Will try clear liquids -Ondansetron for n/v prn -Stool studies including cdiff ordered to rule out infectious diarrhea 2-FABIANO- likely secondary to dehydration from diarrhea and vomiting improving with IVF 100ml/hr -Follow BMP daily 3-COVID-19 infection- no hypoxia, afebrile she says she is off? paxlovid because sec worsening abdominal symptoms -Flonase prn for sinus congestion 4-Abnormal UA- urine culture pending -Pt denies urinary symtpoms -UA pos nitrites, 1+blood, 2+bacteria, neg leuks has hx of uti,urine cultures pending 4-Crohns disease- stable. N/V and diarrhea likely r/t COVID-19 infection, less likely crohns exacerbation -Continue pentasa Gi eval add -recomeded hydration and trial of antibiotics 5-Hypothyroidism -Continue levothyroxine 6-GERD- stable -Continue pantoprazole DVT prophylaxis- lovenox need for inpatient : Gastroenteritis -not tolerating diet, iv hydration/antibiotics, need IV hydration for FABIANO and ileus and IV pain medications Quality Stroke Does the patient have a stroke diagnosis?: No VTE Prior VTE?: No VTE Risk Level:: Medical - moderate - high VTE Device Contraindication: Treatment Not Indicated VTE Drug Contraindication: N/A - Med Ordered
[2022-05-30 16:09] VITALS: RESP 18
[2022-05-30] MEDS: metroNIDAZOLE/NS 500 MG/100 ML PIGGYBACK 100 MG IV (17:07)
[2022-05-30] MEDS: levoFLOXacin/D5W 500 MG/100 ML PIGGYBACK 100 MG IV (18:14)
--- NOTE | 2022-05-30 19:16 | PC.NURSE ---
report received from [facility] RN
[2022-05-30] MEDS: ondansetron HCL 4 MG/2 ML VIAL IVPUSH (20:31)
[2022-05-30 23:51] VITALS: BP 173/73; PULSE 71; RESP 18; TEMP 36.1; O2SAT 97
[2022-05-31] MEDS: Acetaminophen 325 MG TABLET 650 MG PO (02:05)
[2022-05-31] MEDS: metroNIDAZOLE/NS 500 MG/100 ML PIGGYBACK 100 MG IV ×3 (02:07→18:27)
[2022-05-31] MEDS: Omeprazole 20 MG CAPSULE.DR PO (06:40)
[2022-05-31 07:18] LABS: C Reactive Protein 1.64 mg/dL (< or = 0.50)
[2022-05-31] MEDS: Levothyroxine Sodium 88 MCG TABLET PO (07:34)
[2022-05-31 07:39] VITALS: BP 138/55; PULSE 52; RESP 14; O2SAT 96
[2022-05-31] MEDS: 0.9 % Sodium Chloride Flush 3 ML SYRINGE IVFLUSH ×4 (08:45→23:21)
[2022-05-31] MEDS: Mesalamine 250 MG CAPSULE.ER 1000 MG PO ×3 (08:45→23:20)
[2022-05-31] MEDS: Fluticasone Propionate Nasal 16 GM SPRAY 1 SPRAY NOSTRIL-B (08:50)
[2022-05-31] MEDS: Morphine Sulfate 2 MG/ML CARTRIDGE 1 MG IVPUSH ×2 (10:04→17:09)
[2022-05-31] MEDS: ondansetron HCL 4 MG/2 ML VIAL IVPUSH (10:05)
--- NOTE | 2022-05-31 13:22 | PC.NURSE ---
Pharmacy contacted for 1300 med. Per jacob will be delivered.
[2022-05-31] MEDS: Enoxaparin Sodium 40 MG/0.4 ML SYRINGE SUBCUT (14:37)
--- NOTE | 2022-05-31 15:33 | P.PNIM_ITS ---
Subjective Subjective Date of Service: 05/31/22 Interval History: f/u on ileus, + covid tolerating liquid diet, no sob Review of Systems no abd, no nausea or vomiting, no sob Physical Exam Vital Signs: Vital Signs: Last Vital Signs Temp 97 F 05/30/22 23:51 Pulse 52 05/31/22 07:39 Resp 14 05/31/22 07:39 BP 138/55 L 05/31/22 07:39 Pulse Ox 96 05/31/22 07:39 O2 Del Method 05/31/22 07:39 BMI result Body Mass Index 29.9 Const: Other: General: AO X 3, no acute distress Resp: CTA bilateral CVS: S1,S2,RRR GI: +BS, NT, no distention Skin: No rash Neuro: motor grossly intact Psych: appropriate affect Objective Data Active Medications Benzocaine (Throat Lozenge, Medicated Lozenge) 1 lozenge MUCOUS MEM Q2H PRN PRN Reason: Sore Throat Last Admin: 05/30/22 08:30 Dose: 1 lozenge Documented By: FERMIN Enoxaparin Sodium (Enoxaparin Sodium 40 Mg/0.4 Ml Syringe) 40 mg SUBCUT Q24H [facility] Last Admin: 05/31/22 14:37 Dose: 40 mg Documented By: TAYLOR Fluticasone Propionate (Fluticasone Propionate Nasal 16 Gm [place]) 1 spray NOSTRIL-B DAILY [facility] Last Admin: 05/31/22 08:50 Dose: 1 spray Documented By: HARPREET Promethazine HCl 6.25 mg/ (Sodium Chloride) 50.25 mls @ 201 mls/hr IV Q6H PRN PRN Reason: Nausea Levofloxacin (Levaquin) 500 mg in 100 mls @ 100 mls/hr IV Q24H [facility] Last Infusion: 05/30/22 19:20 Dose: 0 mls/hr Documented By: BOB Metronidazole (Flagyl) 500 mg in 100 mls @ 100 mls/hr IV Q8H [facility] Last Infusion: 05/31/22 11:27 Dose: 0 mls/hr Documented By: TAYLOR Levothyroxine Sodium (Levothyroxine Sodium 88 Mcg Tablet) 88 mcg PO DAILY@0600 [facility] Last Admin: 05/31/22 07:34 Dose: 88 mcg Documented By: HARPREET Mesalamine (Mesalamine 250 Mg Capsule.Er) 1,000 mg PO QID [facility] Last Admin: 05/31/22 08:45 Dose: 1,000 mg Documented By: HARPREET Morphine Sulfate (Morphine Sulfate 2 Mg/Ml Cartridge) 1 mg IVPUSH Q4H PRN; Protocol PRN Reason: Pain, Mild (Pain Scale 1-3) Last Admin: 05/31/22 10:04 Dose: 1 mg Documented By: HARPREET Omeprazole (Omeprazole 20 Mg Capsule.Dr) 20 mg PO DAILY@0630 [facility] Last Admin: 05/31/22 06:40 Dose: 20 mg Documented By: MELINDA Ondansetron HCl (Ondansetron Hcl 4 Mg/2 Ml Vial) 4 mg IVPUSH Q8H PRN PRN Reason: Nausea and Vomiting Last Admin: 05/31/22 10:05 Dose: 4 mg Documented By: HARPREET Pharmacy Consult (Consult Rx Perform Med Rec) 1 each MISCELLANE ONCE PRN PRN Reason: Consult order Sodium Chloride (0.9 % Sodium Chloride Flush 3 Ml Syringe) 3 ml IVFLUSH QSHIFT [facility] Last Admin: 05/31/22 08:45 Dose: 3 ml Documented By: HARPREET Labs CBC & Chem 7: 05/28/22 06:26 05/29/22 06:39 Labs: Laboratory Results - last 24 hr 05/31/22 06:43 C-Reactive Protein 1.64 H Microbiology Microbiology Results: Microbiology 05/30/22 09:02 Urine Culture - Preliminary Urine clean catch - Clean Catch Midstream Gram negative kar Assessment and Plan (1) Diarrhea: Status: Acute (2) Vomiting: Status: Acute Plan 61 year old female with history of crohns disease with history partial colectomy on pentasa, hypothyroidism, and gerd diagnosed with COVID-19 4 days ago on paxlovid admitted for management of ileus and FABIANO. 1-possible gastroenteritis likely related to diarrhea associated with COVID-19 with history of partial colectomy\ -Ileus--seen by surgery no intervention stool wbc <2 ,cdiff neg tolerating clear liquid--> advance -Ondansetron for n/v prn -Stool studies including cdiff ordered to rule out infectious diarrhea 2-FABIANO- resolved 3-COVID-19 infection- no hypoxia, afebrile she says she is off? paxlovid because sec worsening abdominal symptoms -Flonase prn for sinus congestion [id number] GNR, on Levaquin 4-Crohns disease- stable. N/V and diarrhea likely r/t COVID-19 infection, less likely crohns exacerbation -Continue pentasa Gi eval add -recomeded hydration and trial of antibiotics 5-Hypothyroidism -Continue levothyroxine 6-GERD- stable -Continue pantoprazole DVT prophylaxis- lovenox need for inpatient : Gastroenteritis -not tolerating diet, iv hydration/antibiotics, need IV hydration for FABIANO and ileus and IV pain medications Quality Stroke Does the patient have a stroke diagnosis?: No VTE Prior VTE?: No VTE Risk Level:: Medical - moderate - high VTE Device Contraindication: Treatment Not Indicated VTE Drug Contraindication: N/A - Med Ordered
[2022-05-31] MEDS: levoFLOXacin/D5W 500 MG/100 ML PIGGYBACK 100 MG IV (17:11)
[2022-05-31 17:42] VITALS: BP 129/58; PULSE 54; RESP 18; TEMP 36.6; O2SAT 95
[2022-05-31 20:22] VITALS: BP 157/74; PULSE 54; RESP 18; TEMP 36.8; O2SAT 98
[2022-05-31 23:22] VITALS: BMI 31.2
[2022-05-31 23:49] VITALS: BP 176/91; PULSE 62; RESP 18; TEMP 36.6; O2SAT 98
[2022-06-01] MEDS: metroNIDAZOLE/NS 500 MG/100 ML PIGGYBACK 100 MG IV ×2 (02:15→11:28)
[2022-06-01] MEDS: Levothyroxine Sodium 88 MCG TABLET PO (06:30)
[2022-06-01 07:38] VITALS: BP 154/62; PULSE 65; RESP 20; TEMP 36.7; O2SAT 94
[2022-06-01] MEDS: Throat Lozenge, Medicated LOZENGE 1 LOZENGE MUCOUS MEM (08:52)
[2022-06-01] MEDS: Mesalamine 250 MG CAPSULE.ER 1000 MG PO ×4 (08:52→22:02)
[2022-06-01] MEDS: 0.9 % Sodium Chloride Flush 3 ML SYRINGE IVFLUSH ×4 (08:53→22:23)
[2022-06-01] MEDS: ondansetron HCL 4 MG/2 ML VIAL IVPUSH (08:53)
[2022-06-01] MEDS: Omeprazole 20 MG CAPSULE.DR PO (08:58)
[2022-06-01 11:17] VITALS: BP 130/65; PULSE 60; RESP 20; TEMP 36.6; O2SAT 97
[2022-06-01] MEDS: Morphine Sulfate 2 MG/ML CARTRIDGE 1 MG IVPUSH ×2 (11:28→22:23)
[2022-06-01] MEDS: Enoxaparin Sodium 40 MG/0.4 ML SYRINGE SUBCUT (13:43)
[2022-06-01 15:19] VITALS: BP 140/93; PULSE 69; RESP 18; TEMP 36.7; O2SAT 97
--- NOTE | 2022-06-01 15:26 | HO.PM.IMPN ---
Subjective Subjective Date of Service: 06/01/22 Interval History: f/u on ileus, + covid her diet was advanced today and says that she had more pain after eating and also with diarrhea Review of Systems + abd, no nausea or vomiting, no sob Gastrointestinal Gastrointestinal: Reports nausea Physical Exam Vital Signs: Vital Signs: Last Vital Signs Temp 98.0 F 06/01/22 15:19 Pulse 69 06/01/22 15:19 Resp 18 06/01/22 15:19 BP 140/93 H 06/01/22 15:19 Pulse Ox 97 06/01/22 15:19 O2 Del Method 06/01/22 15:19 BMI result Body Mass Index 31.2 Const: Other: General: AO X 3, no acute distress Resp: CTA bilateral CVS: S1,S2,RRR GI: +BS, NT, no distention Skin: No rash Neuro: motor grossly intact Psych: appropriate affect Objective Data Active Medications Benzocaine (Throat Lozenge, Medicated Lozenge) 1 lozenge MUCOUS MEM Q2H PRN PRN Reason: Sore Throat Last Admin: 06/01/22 08:52 Dose: 1 lozenge Documented By: PEDRO Enoxaparin Sodium (Enoxaparin Sodium 40 Mg/0.4 Ml Syringe) 40 mg SUBCUT Q24H [facility] Last Admin: 06/01/22 13:43 Dose: 40 mg Documented By: PEDRO Fluticasone Propionate (Fluticasone Propionate Nasal 16 Gm [place]) 1 spray NOSTRIL-B DAILY [facility] Last Admin: 06/01/22 09:00 Dose: Not Given Documented By: PEDRO Non-Admin Reason: Patient Refused Promethazine HCl 6.25 mg/ (Sodium Chloride) 50.25 mls @ 201 mls/hr IV Q6H PRN PRN Reason: Nausea Levofloxacin (Levaquin) 500 mg in 100 mls @ 100 mls/hr IV Q24H [facility] Last Infusion: 05/31/22 18:18 Dose: 0 mls/hr Documented By: ROSALIA Metronidazole (Flagyl) 500 mg in 100 mls @ 100 mls/hr IV Q8H [facility] Last Infusion: 06/01/22 13:23 Dose: 0 mls/hr Documented By: PEDRO Levothyroxine Sodium (Levothyroxine Sodium 88 Mcg Tablet) 88 mcg PO DAILY@0600 [facility] Last Admin: 06/01/22 06:30 Dose: 88 mcg Documented By: HAIR Mesalamine (Mesalamine 250 Mg Capsule.Er) 1,000 mg PO QID [facility] Last Admin: 06/01/22 13:43 Dose: 1,000 mg Documented By: PEDRO Morphine Sulfate (Morphine Sulfate 2 Mg/Ml Cartridge) 1 mg IVPUSH Q4H PRN; Protocol PRN Reason: Pain, Mild (Pain Scale 1-3) Last Admin: 06/01/22 11:28 Dose: 1 mg Documented By: PEDRO Omeprazole (Omeprazole 20 Mg Capsule.Dr) 20 mg PO DAILY@0630 [facility] Last Admin: 06/01/22 08:58 Dose: 20 mg Documented By: PEDRO Ondansetron HCl (Ondansetron Hcl 4 Mg/2 Ml Vial) 4 mg IVPUSH Q8H PRN PRN Reason: Nausea and Vomiting Last Admin: 06/01/22 08:53 Dose: 4 mg Documented By: PEDRO Pharmacy Consult (Consult Rx Perform Med Rec) 1 each MISCELLANE ONCE PRN PRN Reason: Consult order Sodium Chloride (0.9 % Sodium Chloride Flush 3 Ml Syringe) 3 ml IVFLUSH QSHIFT [facility] Last Admin: 06/01/22 13:43 Dose: 3 ml Documented By: PEDRO Labs CBC & Chem 7: 05/28/22 06:26 05/29/22 06:39 Microbiology Microbiology Results: Microbiology 05/30/22 09:02 Urine Culture - Final Urine clean catch - Clean Catch Midstream Escherichia coli Assessment and Plan (1) Diarrhea: Status: Acute (2) Vomiting: Status: Acute Plan 61 year old female with history of crohns disease with history partial colectomy on pentasa, hypothyroidism, and gerd diagnosed with COVID-19 4 days ago on paxlovid admitted for management of ileus and FABIANO. 1-possible gastroenteritis likely related to diarrhea associated with COVID-19 with history of partial colectomy\ -Ileus--seen by surgery no intervention stool wbc <2 ,cdiff neg tolerating clear liquid--> full liquid -Ondansetron for n/v prn -Stool studies including cdiff ordered to rule out infectious diarrhea 2-FABIANO- resolved 3-COVID-19 infection- no hypoxia, afebrile she says she is off? paxlovid because sec worsening abdominal symptoms -Flonase prn for sinus congestion [id number] GNR, on Levaquin 4-Crohns disease- has been stable but now diarrhea, pain -Continue pentasa Gi eval add -recomeded hydration and trial of antibiotics 5-Hypothyroidism -Continue levothyroxine 6-GERD- stable -Continue pantoprazole DVT prophylaxis- lovenox need for inpatient : Gastroenteritis -not tolerating diet, iv hydration/antibiotics, need IV hydration for FABIANO and ileus and IV pain medications anticipate dc tomorrow Quality Stroke Does the patient have a stroke diagnosis?: No VTE Prior VTE?: No VTE Risk Level:: Medical - moderate - high VTE Device Contraindication: Treatment Not Indicated VTE Drug Contraindication: N/A - Med Ordered
--- NOTE | 2022-06-01 16:18 | MHC.CM.PN ---
Per MD rounds DC today if patient tolerates advance in diet. Patient reported abdominal pain after eating a small amount. She required MSO4 IV for pain. She also requires Zofran for nausea. DP home no services family transport. Discharge is anticipated tomorrow per MD.
[2022-06-01 19:11] VITALS: BP 100/57; PULSE 65; RESP 18; TEMP 2.4; TEMP 36.4; O2SAT 95
[2022-06-01] MEDS: levoFLOXacin/D5W 500 MG/100 ML PIGGYBACK 100 MG IV (19:19)
[2022-06-01 23:17] VITALS: BP 140/85; PULSE 70; RESP 16; TEMP 36.4; O2SAT 96
[2022-06-02] MEDS: Levothyroxine Sodium 88 MCG TABLET PO (05:34)
[2022-06-02] MEDS: Omeprazole 20 MG CAPSULE.DR PO (06:40)
[2022-06-02 07:33] VITALS: BP 109/63; PULSE 51; RESP 18; TEMP 36.7; O2SAT 93
[2022-06-02] MEDS: Mesalamine 250 MG CAPSULE.ER 1000 MG PO ×4 (10:21→21:44)
[2022-06-02] MEDS: Morphine Sulfate 2 MG/ML CARTRIDGE 1 MG IVPUSH ×2 (10:23→20:06)
[2022-06-02 11:57] VITALS: BP 140/64; PULSE 67; RESP 20; O2SAT 97
[2022-06-02 13:06] LABS: Hematocrit 35.8 % (37.0-47.0); Hemoglobin 11.8 g/dl (12.0-16.0); Mean Corpuscular Hemoglobin 26.8 pg (27.0-33.0); Mean Corpuscular Volume 81.2 fL (80.0-98.0); Mean Platelet Volume 9.7 fL (9.4-12.3); Platelet Count 366 X10*3/uL (160-400); Red Blood Count 4.41 X10*6/uL (4.20-5.50); Red Cell Distribution Width 15.8 % (11.0-16.0); White Blood Count 6.3 X10*3/uL (4.8-10.8)
--- NOTE | 2022-06-02 13:46 | HO.PM.IMPN ---
Subjective Subjective Date of Service: 06/02/22 Interval History: f/u on ileus, + covid she is reporting more diarrhea, black stool and abd pain Review of Systems + abd, no nausea or vomiting, no sob Physical Exam Vital Signs: Vital Signs: Last Vital Signs Temp 98.1 F 06/02/22 07:33 Pulse 67 06/02/22 11:57 Resp 20 06/02/22 11:57 BP 140/64 H 06/02/22 11:57 Pulse Ox 97 06/02/22 11:57 O2 Del Method 06/02/22 11:57 BMI result Body Mass Index 31.2 Const: Other: General: AO X 3, no acute distress Resp: CTA bilateral CVS: S1,S2,RRR GI: +BS, NT, no distention Skin: No rash Neuro: motor grossly intact Psych: appropriate affect Objective Data Active Medications Benzocaine (Throat Lozenge, Medicated Lozenge) 1 lozenge MUCOUS MEM Q2H PRN PRN Reason: Sore Throat Last Admin: 06/01/22 08:52 Dose: 1 lozenge Documented By: PEDRO Enoxaparin Sodium (Enoxaparin Sodium 40 Mg/0.4 Ml Syringe) 40 mg SUBCUT Q24H [facility] Last Admin: 06/01/22 13:43 Dose: 40 mg Documented By: PEDRO Fluticasone Propionate (Fluticasone Propionate Nasal 16 Gm [place]) 1 spray NOSTRIL-B DAILY [facility] Last Admin: 06/02/22 10:21 Dose: Not Given Documented By: JENNA Non-Admin Reason: Patient Refused Promethazine HCl 6.25 mg/ (Sodium Chloride) 50.25 mls @ 201 mls/hr IV Q6H PRN PRN Reason: Nausea Levofloxacin (Levaquin) 500 mg in 100 mls @ 100 mls/hr IV Q24H JENISE Metronidazole (Flagyl) 500 mg in 100 mls @ 100 mls/hr IV Q8H [facility] Levothyroxine Sodium (Levothyroxine Sodium 88 Mcg Tablet) 88 mcg PO DAILY@0600 [facility] Last Admin: 06/02/22 05:34 Dose: 88 mcg Documented By: HAIR Mesalamine (Mesalamine 250 Mg Capsule.Er) 1,000 mg PO QID [facility] Last Admin: 06/02/22 13:20 Dose: 1,000 mg Documented By: JENNA Morphine Sulfate (Morphine Sulfate 2 Mg/Ml Cartridge) 1 mg IVPUSH Q4H PRN; Protocol PRN Reason: Pain, Mild (Pain Scale 1-3) Last Admin: 06/02/22 10:23 Dose: 1 mg Documented By: JENNA Omeprazole (Omeprazole 20 Mg Capsule.Dr) 20 mg PO DAILY@0630 [facility] Last Admin: 06/02/22 06:40 Dose: 20 mg Documented By: HAIR Ondansetron HCl (Ondansetron Hcl 4 Mg/2 Ml Vial) 4 mg IVPUSH Q8H PRN PRN Reason: Nausea and Vomiting Last Admin: 06/01/22 08:53 Dose: 4 mg Documented By: PEDRO Pharmacy Consult (Consult Rx Perform Med Rec) 1 each MISCELLANE ONCE PRN PRN Reason: Consult order Sodium Chloride (0.9 % Sodium Chloride Flush 3 Ml Syringe) 3 ml IVFLUSH QSAZFT [facility] Last Admin: 06/02/22 07:47 Dose: Not Given Documented By: JENNA Non-Admin Reason: assessed Labs CBC & Chem 7: 06/02/22 12:48 05/29/22 06:39 Labs: Laboratory Results - last 24 hr 06/02/22 12:48 MCV 81.2 MCH 26.8 L MCHC 33.0 RDW 15.8 Plt Count 366 MPV 9.7 Absolute Nucleated RBC 0.000 Nucleated RBC % (auto) 0.0 Assessment and Plan (1) Diarrhea: Status: Acute (2) Vomiting: Status: Acute Plan 61 year old female with history of crohns disease with history partial colectomy on pentasa, hypothyroidism, and gerd diagnosed with COVID-19 4 days ago on paxlovid admitted for management of ileus and FABIANO. 1-possible gastroenteritis likely related to diarrhea associated with COVID-19 with history of partial colectomy\ -Ileus--seen by surgery no intervention stool wbc <2 ,cdiff neg tolerating clear liquid--> full liquid -Ondansetron for n/v prn -Stool studies including cdiff ordered to rule out infectious diarrhea 2-FABIANO- resolved 3-COVID-19 infection- no hypoxia, afebrile she says she is off? paxlovid because sec worsening abdominal symptoms -Flonase prn for sinus congestion 9-[id number]-[id number] GNR, on Levaquin 4-Crohns disease- has been stable but now diarrhea, pain -Continue pentasa Gi eval add -recomeded hydration and trial of antibiotics -check occult blood, gi following, 5-Hypothyroidism -Continue levothyroxine 6-GERD- stable -Continue pantoprazole DVT prophylaxis- lovenox need for inpatient : Gastroenteritis -not tolerating diet, iv hydration/antibiotics, need IV hydration for FABIANO and ileus and IV pain medications anticipate dc tomorrow if no new issues Quality Stroke Does the patient have a stroke diagnosis?: No VTE Prior VTE?: No VTE Risk Level:: Medical - moderate - high VTE Device Contraindication: Treatment Not Indicated VTE Drug Contraindication: N/A - Med Ordered
[2022-06-02] MEDS: Enoxaparin Sodium 40 MG/0.4 ML SYRINGE SUBCUT (14:36)
[2022-06-02 14:57] LABS: OBS Int Ctl Valid YES; OBS1 NEGATIVE (NEGATIVE)
[2022-06-02 15:25] VITALS: BP 127/89; PULSE 64; RESP 18; TEMP 36.2; O2SAT 97
--- NOTE | 2022-06-02 18:35 | PC.NURSE ---
pt c/o bad pain stating morphine has worked previously. prn morphine administered x1 w/ + effect. Morphine was d/c'ed, pt continued to c/o pain. Md informed x2 of pt's abd pain and no pain meds being ordered. Md assessed pt at bedside this AM. Otherwise no acute complications this shift. call islas within reach. safety and fall precautions maintained.
[2022-06-02] MEDS: levoFLOXacin/D5W 500 MG/100 ML PIGGYBACK 100 MG IV (20:06)
[2022-06-02] MEDS: metroNIDAZOLE/NS 500 MG/100 ML PIGGYBACK 100 MG IV (21:44)
[2022-06-02 23:31] VITALS: BP 114/78; PULSE 80; RESP 18; TEMP 36.7; O2SAT 98
[2022-06-03] MEDS: Morphine Sulfate 2 MG/ML CARTRIDGE 1 MG IVPUSH ×2 (01:24→08:34)
[2022-06-03] MEDS: metroNIDAZOLE/NS 500 MG/100 ML PIGGYBACK 100 MG IV (05:53)
[2022-06-03] MEDS: Levothyroxine Sodium 88 MCG TABLET PO (05:53)
[2022-06-03] MEDS: Omeprazole 20 MG CAPSULE.DR PO (07:13)
[2022-06-03 07:50] VITALS: BP 143/83; PULSE 58; RESP 16; TEMP 36.8; O2SAT 96
[2022-06-03] MEDS: Mesalamine 250 MG CAPSULE.ER 1000 MG PO (08:22)
--- NOTE | 2022-06-03 11:36 | PM.DS ---
DS: Providers Provider Date of Service: 06/03/22 Date of admission: 05/28/22 13:20 Primary care physician: Yuli Garner MD Consults: 05/28/22 13:30 Consult to General Surgery Routine Consulting Provider: Kei Cantu Reason for consultation: ileus 05/28/22 15:39 Consult to Gastroenterology Routine Consulting Provider: [facility] [place] [facility] Reason for consultation: crohn flare vs covid, has Ielus Has provider been notified: No 05/28/22 22:24 Consult to Gastroenterology Routine Consulting Provider: Sathya Prince Reason for consultation: ?colon compression, crohns med management DS: Summary Hospital Course Hospital Course: Chief Complaint: Ileus, COVID19 61 year old female with history of crohns disease with history partial colectomy on pentasa, hypothyroidism, and gerd diagnosed with COVID-19 4 days ago on paxlovid presented to the ED today with worsening diarrhea and vomiting symptoms. Patient started with sinus congestion Monday and presented to urgent the next day and was diagnosed with COVID-19. She is fully vaccinated and boosted x2. She was prescribed pxlovid. Since then has developed worsening myalgias with watery diarrhea throughout the day, 3-4 brown (reports occassional coffee ground emesis as well as food contents) vomiting episodes, diffuse nonradiating abdominal pain, and intolerance of po intake. In ED, creat elevated at 1.89, BUN 27(no baseline available but denies hx ckd), no leukocytosis or anemia. D-dimer 275. UA with nitrite pos urine with 1+ blood, 2+ bacteria, neg leuks. CXR neg. Pulmonary perfusion study neg for PE. Abd/pelvis CT showing partial colectomy with fluid throughout mildly dilated large and small bowell as well as rectal vault suggestive of hypersecretion and mild ileus. No fevers, chills, dysuria, hematuria, urinary urgency, shortness of breath, palpitations, lightheadedness, or chest pain. Hospital course: 1-possible gastroenteritis likely related to diarrhea associated with COVID-19 with history of partial colectomy -Ileus--seen by surgery no intervention stool wbc <2 ,cdiff neg diet was advaced from liquid to now regular and doing fine no more n/v or diarrhea at this time, H/H stable. 2-FABIANO- likely from pre renal state and has resolved 3-COVID-19 infection- assymptomatic. She was prescribed paxlobid but did not take it because of abdominal discomfort.. remains assymptomatic and so at this point there is no indication 4-UTI-E. coli, sensitive to levaquin and has been treated for 7 days no 4-Crohns disease-has been stable. Was seen by GI and recommend for Abx and hydration and has been on Flagyl and Levqaquin for 7 days now and will therefore stop. to continue usual meds and can take imodium for loose stol 5-Hypothyroidism -Continue levothyroxine 6-GERD- stable -Continue pantoprazole 7. Chronic anemia, H/H has been stable, occult blood on 06/[address] finding: Approximately 1 cm L4 sclerotic lesion, not otherwise characterized. No other sclerotic or lytic bony lesion identified. In the absence of known or suspected malignancy elsewhere (for example, breast cancer), the finding probably represents a bone island. Recommend clinical correlation. -Up todate on colonoscopy, to follow up with PCP and to unsrure mamogram is uptodate DVT prophylaxis- lovenox Time Spent with Patient Time attestation: Total time spent providing and/or coordinating discharge services: Discharge coordination time: Greater than 30 minutes Quality: Safe Use of Opioids Does Pt have an Active Cancer Diagnosis on the Problem List?: No Quality: Stroke Does the patient have a stroke diagnosis?: No Physical Exam Vital Signs: Vital Signs: Last Vital Signs Temp 98.2 F 06/03/22 07:50 Pulse 58 06/03/22 07:50 Resp 16 06/03/22 07:50 BP 143/83 H 06/03/22 07:50 Pulse Ox 96 06/03/22 07:50 O2 Del Method 06/03/22 07:50 BMI result Body Mass Index 31.2 DS: Data Data Completed and Pending Completed studies during hospitalization [Text1]: Procedures Insertion of Infusion Device into Left Basilic Vein, Percutaneous Approach (07/04/21) Labs on day of discharge: Laboratory Results - last 24 hr 06/02/22 06/02/22 12:48 14:40 WBC 6.3 RBC 4.41 Hgb 11.8 L Hct 35.8 L MCV 81.2 MCH 26.8 L MCHC 33.0 RDW 15.8 Plt Count 366 MPV 9.7 Absolute Nucleated RBC 0.000 Nucleated RBC % (auto) 0.0 Stool Occult Blood NEGATIVE Discharge Plan Discharge Anticipated Discharge Date/Time: 06/03/22 11:46 Patient Disposition: Home, Self-Care Discharge Diagnosis: Crohn's colitis Referrals: Physician,Nonstaff [Physician] - 1 Week Discharge Medications: New loperamide [Imodium A-D] 2 mg tablet 2 mg PO Q4H PRN (Reason: diarrhea) Qty: 60 0RF Rx Instructions: administer after each loose stool until symptoms controlled; do not exceed 8 mg per 24 hrs Continued cholecalciferol (vitamin D3) 50 mcg (2,000 unit) capsule 50 mcg PO DAILY Qty: 30 3RF azathioprine 50 mg tablet 50 mg PO DAILY Qty: 30 3RF cetirizine [Allergy Relief (cetirizine)] 10 mg tablet 10 mg PO DAILY PRN (Reason: allergy symptoms) Qty: 90 1RF Paxlovid (EUA) 150-100 mg tablets,dose pack See Rx Instructions PO PER PKG DIR 5 Days Qty: 30 0RF Rx Instructions: PO PER PKG DIR levothyroxine 88 mcg Tablet 88 mcg PO DAILY@0630 calcium carbonate [Calcium 600] 600 mg calcium (1,500 mg) Tablet 600 mg PO BID pantoprazole 40 mg Tablet,Delayed Release (Dr/Ec) 40 mg PO DAILY mesalamine [Pentasa] 500 mg Capsule, Extended Release 1,000 mg PO QID Discharge Orders: Discharge Order (Routine); Ordered 06/03/22 Ordered By: Pratik Bermudez Diet: Advance to usual diet Activity on Discharge: As tolerated Stand Alone Forms: Patient Portal Discharge page Care Plan Goals: full recovery from colitis Health Concerns: colitis, crohn's Plan of Treatment: continue taking your chrohn's medication as usual you may take imodium for diarrhea follow up with your doctor in a week, please check with your Doctor make sure you are up todate on mamogram and other screening test Assessment: as above
--- NOTE | 2022-06-03 12:30 | MHC.CM.PN ---
Patient is discharged today to home. No home services ordered. Patient will arrange for transportation.
--- NOTE | 2022-06-03 12:38 | PC.NURSE ---
IV d/c'ed and no tele was on pt prior to discharge. discharge packet given to pt and pt educated on packet. safety and fall precautions maintained. isolation precautions maintained. md was informed by this RN and pt at bedside this AM about pt's abd pain. no new orders in place.
[2022-06-10 01:37] LABS: Calprotectin, Fecal 18 mcg/g
== END 2022-06-03 12:38 | disposition home or self-care (01) | DRG 137 ==
LOC: HO.ED 11:36 → HO.EDOVER 13:42 → HO.IMC 05-31 17:34
PROVIDERS: Internal Medicine; Internal Medicine Gastroenterology; Admitting Provider Physician Assistant; Emergency Provider Emergency Medicine; PCP Internal Medicine; Visit Provider Internal Medicine
DX: U07.1 COVID-19 (principal); N17.9 Acute kidney failure, unspecified; A08.39 Other viral enteritis; N39.0 Urinary tract infection, site not specified; B96.20 Unspecified Escherichia coli [E. coli] as the cause of diseases classified elsewhere; D64.9 Anemia, unspecified; M89.9 Disorder of bone, unspecified; E86.0 Dehydration; K56.7 Ileus, unspecified; K50.90 Crohn's disease, unspecified, without complications; E03.9 Hypothyroidism, unspecified; K21.9 Gastro-esophageal reflux disease without esophagitis; Z79.890 Hormone replacement therapy; Z79.899 Other long term (current) drug therapy
CPT/HCPCS: 36415; 71045; 74176; 78580; 80048; 80076; 81001; 82272; 82550; 83605; 83615; 83690; 83735; 83993; 84484; 85025; 85027; 85379; 86140; 87086; 87088; 87186; 87493; 87635; 89055; 93005; 99285; A9540; J1650; J1956; J2270; J2405

== ENCOUNTER → 2022-06-09 12:20 | Outpatient (BNVA) | payer OTHER, SELFPAY | PROVIDERS: PCP Internal Medicine; Visit Provider Internal Medicine Gastroenterology | DX: K50.119 Crohn's disease of large intestine with unspecified complications (principal); K59.09 Other constipation; D64.9 Anemia, unspecified; K21.9 Gastro-esophageal reflux disease without esophagitis; D50.9 Iron deficiency anemia, unspecified | CPT/HCPCS: 99212 ==

== ENCOUNTER 2022-06-13 10:16 | Outpatient (REF) | payer OTHER, SELFPAY ==
[2022-06-13 11:22] LABS: MANUAL DIFF FLAG NO
[2022-06-13 11:39] LABS: Basophils Percent Auto 0.9 % (0-2); Eosinophils Absolute Auto 0.1 X10*3/uL (0.0-0.4); Hematocrit 38.1 % (37.0-47.0); Hemoglobin 11.9 g/dl (12.0-16.0); Imm Gran Abs Auto 0.01 X10*3/uL (0.00-0.03); Imm Gran Pct Auto 0.2 % (0.0-0.4); Lymphocytes Absolute Auto 1.5 X10*3/uL (1.2-4.9); Mean Corpuscular HGB Conc 31.2 g/dl (31.0-35.0); Mean Corpuscular Hemoglobin 26.9 pg (27.0-33.0); Mean Platelet Volume 10.7 fL (9.4-12.3); Monocytes Absolute Auto 0.4 X10*3/uL (0.1-1.2); Monocytes Percent Auto 8.3 % (2-11); Neutrophils Absolute Auto 2.4 x10*3/uL (2.0-8.3); Neutrophils Percent Auto 54.6 % (45-73); Platelet Count 405 X10*3/uL (160-400); Red Blood Count 4.43 X10*6/uL (4.20-5.50); Red Cell Distribution Width 17.7 % (11.0-16.0); White Blood Count 4.5 X10*3/uL (4.8-10.8)
[2022-06-13 12:51] LABS: Alanine Aminotransferase 12 U/L (0-31); Albumin Level 3.9 g/dL (3.5-5.0); Alkaline Phosphatase 58 U/L (39-117); Anion Gap 18 (12-20); Aspartate Amino Transferase 14 U/L (5-31); Bilirubin Total 0.5 mg/dL (0.0-1.0); Blood Urea Nitrogen 9 mg/dL (9-16); C Reactive Protein 0.36 mg/dL (< or = 0.50); Calcium 9.3 mg/dL (8.4-10.2); Carbon Dioxide 21 mmol/L (22-29); Chloride 106 mmol/L (96-108); Estimated Glomerular Filt Rate > 60; Glucose Random 118 mg/dL (60-115); Lipase 46 U/L (8-78); Potassium 3.9 mmol/L (3.3-5.1); Sodium 141 mmol/L (135-145); Total Protein 7.3 g/dL (6.5-8.0)
[2022-06-13 13:05] LABS: Ferritin 17 ng/mL (10-250)
[2022-06-16 00:51] LABS: Zinc 74 mcg/dL (60-130)
== END 2022-06-13 10:17 | disposition home or self-care (01) ==
LOC: HO.HMGCLDS 10:16
PROVIDERS: PCP Internal Medicine; Visit Provider Internal Medicine Gastroenterology
DX: K50.119 Crohn's disease of large intestine with unspecified complications (principal); D50.9 Iron deficiency anemia, unspecified
CPT/HCPCS: 36415; 80053; 80299; 82728; 83690; 84630; 85025; 86140

== ENCOUNTER 2022-07-25 09:40 | Outpatient (REF) | payer OTHER, SELFPAY ==
--- NOTE | ~2022-07-25 | XR_ITS ---
EXAMINATION: XR KNEE, RIGHT CLINICAL INFORMATION: Right knee pain. COMPARISON: None TECHNIQUE: Four views of the right knee. FINDINGS: Mild medial femoral-tibial and patellofemoral degenerative joint changes are seen. There is no acute fracture or dislocation. No significant joint effusion. The soft tissues are unremarkable. XR/XR knee RT 4V IMPRESSION: Mild osteoarthritis. No acute fracture.
== END 2022-07-25 09:41 | disposition home or self-care (01) ==
LOC: HO.HMGCX 09:40
PROVIDERS: PCP Internal Medicine; Visit Provider Internal Medicine
DX: M25.561 Pain in right knee (principal)
CPT/HCPCS: 73564

== ENCOUNTER 2022-08-15 10:00 | Outpatient (RCR) | payer OTHER, SELFPAY ==
--- NOTE | 2022-08-04 11:47 | MHC.PT.EP ---
[facility] [place] Office [place] Office [place] Office [address] [phone] F: [phone] F: [phone] F: [phone] F: [phone] Physical Therapy Plan of Care Date of Evaluation: Date of Surgery: n/a Diagnosis: pain in R knee Assessment: Patient is a 61 year old female presenting to PT with complaints of pain in her R knee. Pt reports onset of pain began 2 weeks ago due to insidious onset. She presents today with impairments in pain, knee strength, and hip strength. Pt's current occupation is none, with baseline physical activities including sitting for prolonged periods of time. Pt expresses care home goal of reducing pain, and is motivated to work towards this in PT. Clinical presentation today is most consistent with signs and sx associated with possible R knee OA based on xray findings and pt will benefit from skilled PT to address the following problems and impairments noted upon evaluation: pain, knee strength, and hip strength. These problems limit the patient with the following functional activities: stair negotiation, prolonged sitting. The prescribed treatment plan of care is medically necessary. Co-morbidities of osteoporosis, crohns, collitis were identified and taken into considerations of plan of care. Pt was educated on HEP, role of PT, prognosis, POC. Frequency and Duration: The patient will be seen 1 x week x 4 weeks Short Term Goals: Pt will demonstrate improved knee MMT strength by 1/3 grade in 2 weeks. Pt will demonstrate improved hip MMT strength by 1/3 grade in 2 weeks. 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 Pt will demonstrate reports of improved ability to negotiate stairs with min to no pain in 4 weeks. Treatment Plan: Modalities to reduce pain, spasms and effusion. Manual therapy to restore motion and function. Therapeutic exercise to improve strength and flexibility. Neuromuscular re-education for posture and balance. Therapeutic activities to return to functional activities of daily living. Electronically signed by: Jacquie Olmstead, PT, DPT, ATC Please sign and return to therapist. Thank you for your referral.
--- NOTE | 2022-09-14 11:01 | MHC.PT.DC ---
[facility] [place] Office [place] Office [place] Office [address] Jarad [address] [phone] F: [phone] F: [phone] F: [phone] F: [phone] Physical Therapy Discharge Report Diagnosis: pain in R knee Date of Surgery: n/a Date of Evaluation: 08/04/22 Date of Discharge: 09/14/22 Treatments to Date: 3 Cancellations to Date: 3 No Shows to Date: 1 Discharge Status: Visit Non-compliance Discharge Summary: Pt no showed her last scheduled appointment. She has demonstrated poor compliance with attendance and not returned to PT in >30 days. Pt to be d/c at this time. Electronically signed by: Jacquie Olmstead, PT, DPT, ATC Please sign and return to therapist. Thank you for your referral.
== END 2022-09-14 11:02 | disposition home or self-care (01) ==
LOC: HO.PTCHIC 10:00
PROVIDERS: PCP Internal Medicine; Visit Provider Internal Medicine
DX: M25.561 Pain in right knee (principal)
CPT/HCPCS: 97110; 97161

== ENCOUNTER 2022-11-23 09:01 | Outpatient (REF) | payer OTHER, SELFPAY ==
[2022-11-23 09:35] LABS: MANUAL DIFF FLAG NO
[2022-11-23 10:06] LABS: Basophils Percent Auto 0.7 % (0-2); Eosinophils Absolute Auto 0.1 X10*3/uL (0.0-0.4); Hematocrit 41.8 % (37.0-47.0); Hemoglobin 13.1 g/dl (12.0-16.0); Imm Gran Abs Auto 0.02 X10*3/uL (0.00-0.03); Imm Gran Pct Auto 0.4 % (0.0-0.4); Lymphocytes Absolute Auto 1.4 X10*3/uL (1.2-4.9); Lymphocytes Percent Auto 24.8 % (20-40); Mean Corpuscular HGB Conc 31.3 g/dl (31.0-35.0); Mean Corpuscular Hemoglobin 26.6 pg (27.0-33.0); Mean Corpuscular Volume 84.8 fL (80.0-98.0); Mean Platelet Volume 10.9 fL (9.4-12.3); Monocytes Absolute Auto 0.4 X10*3/uL (0.1-1.2); Monocytes Percent Auto 7.2 % (2-11); Neutrophils Absolute Auto 3.5 x10*3/uL (2.0-8.3); Neutrophils Percent Auto 64.9 % (45-73); Platelet Count 329 X10*3/uL (160-400); Red Blood Count 4.93 X10*6/uL (4.20-5.50); Red Cell Distribution Width 17.3 % (11.0-16.0); White Blood Count 5.4 X10*3/uL (4.8-10.8)
[2022-11-23 10:36] LABS: Alanine Aminotransferase 7 U/L (0-31); Albumin Level 3.9 g/dL (3.5-5.0); Alkaline Phosphatase 58 U/L (39-117); Aspartate Amino Transferase 10 U/L (5-31); Bilirubin Direct < 0.2 mg/dL (0.0-0.5); Bilirubin Total 0.4 mg/dL (0.0-1.0); C Reactive Protein 0.61 mg/dL (< or = 0.50); Estimated Glomerular Filt Rate > 60; Total Protein 7.5 g/dL (6.5-8.0)
[2022-11-23 10:49] LABS: Alanine Aminotransferase 7 U/L (0-31); Alkaline Phosphatase 57 U/L (39-117); Anion Gap 17 (12-20); Aspartate Amino Transferase 11 U/L (5-31); Bilirubin Total 0.4 mg/dL (0.0-1.0); Blood Urea Nitrogen 17 mg/dL (9-16); Calcium 9.6 mg/dL (8.4-10.2); Carbon Dioxide 23 mmol/L (22-29); Chloride 107 mmol/L (96-108); Estimated Glomerular Filt Rate > 60; Glucose Random 106 mg/dL (60-115); Phosphorus 3.7 mg/dL (2.7-4.5); Potassium 4.6 mmol/L (3.3-5.1); Sodium 142 mmol/L (135-145); Total Protein 7.5 g/dL (6.5-8.0)
[2022-11-23 11:10] LABS: Free T4 (Free Thyroxine) 1.21 ng/dL (0.71-1.85); Thyroid Stimulating Hormone 2.92 uIU/mL (0.32-4.0); Vitamin D 25-OH Total 25.7 ng/mL (>30)
[2022-11-25 12:24] LABS: Calcium (PTHI) 9.5 mg/dL (8.6-10.4); PTHI 79 pg/mL (16-77)
== END 2022-11-23 09:02 | disposition home or self-care (01) ==
LOC: HO.LAB 09:01
PROVIDERS: Internal Medicine Gastroenterology; PCP Internal Medicine; Visit Provider Internal Medicine
DX: K50.119 Crohn's disease of large intestine with unspecified complications (principal); E21.3 Hyperparathyroidism, unspecified; E55.9 Vitamin D deficiency, unspecified; E03.9 Hypothyroidism, unspecified
CPT/HCPCS: 36415; 80053; 80076; 82248; 82306; 82565; 83970; 84100; 84439; 84443; 85025; 86140

== ENCOUNTER → 2022-12-29 12:38 | Outpatient (BNVA) | payer OTHER, SELFPAY | PROVIDERS: PCP Internal Medicine; Visit Provider Internal Medicine Gastroenterology ==

== ENCOUNTER → 2023-01-09 10:21 | Outpatient (BNVA) | payer OTHER, SELFPAY | PROVIDERS: PCP Internal Medicine; Visit Provider Internal Medicine | DX: M81.0 Age-related osteoporosis without current pathological fracture (principal); E21.3 Hyperparathyroidism, unspecified; E03.9 Hypothyroidism, unspecified; E55.9 Vitamin D deficiency, unspecified | CPT/HCPCS: 99212 ==

== ENCOUNTER 2023-01-16 10:29 | Outpatient (REF) | payer OTHER, SELFPAY ==
--- NOTE | ~2023-01-16 | US_ITS ---
EXAMINATION: US THYROID CLINICAL INFORMATION: Hyperparathyroidism, unspecified. COMPARISON: Ultrasound thyroid 04/01/2021. TECHNIQUE: Linear transducer grayscale and color Doppler examination with attention to the region of the thyroid. FINDINGS: SIZE: Measurements of the thyroid lobes and nodules are given in sagittal, anteroposterior and transverse dimensions respectively. Right Thyroid Lobe: 4.7 x 0.8 x 0.8 cm, volume 1.6 mL. Previously 3.5 x 1.3 x 1.0 cm, volume 2.4 mL. Parenchyma: The gland echotexture is heterogeneous. Thyroid vascularity is normal. Left Thyroid Lobe: 3.2 x 0.9 x 1.0 cm, volume 1.5 mL. Previously 4.0 x 1.0 x 1.0 cm, volume 2.1 mL. Parenchyma: The gland echotexture is heterogeneous. Thyroid vascularity is normal. Isthmus: 0.07 cm in maximum AP dimension. Previously 0.1 cm. No focal thyroid nodule is seen. NODES: No lymphadenopathy is seen in the tissue surrounding the thyroid gland. No parathyroid adenoma identified. US/US thyroid IMPRESSION: Heterogeneous thyroid which can be seen in the setting of thyroiditis. No parathyroid adenoma identified.. ACR TI-RADS RECOMMENDATION REFERENCE: Ultrasound-guided fine-needle aspiration, followup ultrasound, no further follow up. * TR1 (0 point) and TR2 (2 points): No FNA or follow up. * TR3 (3 points): FNA if more than or equal to 2.5 cm in maximum dimension, followup ultrasound in 1, 3 and 5 years if 1.5 to 2.4 cm in maximum dimension. * TR4 (4-6 points): FNA if more than or equal to 1.5 cm in maximum dimension, followup ultrasound in 1, 2, 3 and 5 years if 1 to 1.4 cm in maximum dimension. * TR5 (more than or equal to 7 points): FNA if more than or equal to 1 cm in maximum dimension, followup ultrasound every year for 5 years if 0.5 to 0.9 cm in maximum dimension. * TR3, TR4 or TR5 nodules that are below the size threshold for followup receive no follow up.
== END 2023-01-16 10:30 | disposition home or self-care (01) ==
LOC: HO.HMGCX 10:29
PROVIDERS: PCP Internal Medicine; Visit Provider Internal Medicine
DX: E21.3 Hyperparathyroidism, unspecified (principal)
CPT/HCPCS: 76536

== ENCOUNTER → 2023-03-08 09:56 | Outpatient (BNVA) | payer OTHER, SELFPAY | PROVIDERS: PCP Internal Medicine; Visit Provider Obstetrics & Gynecology ==

== ENCOUNTER 2023-03-14 10:56 | Outpatient (REF) | payer OTHER, SELFPAY ==
--- NOTE | ~2023-03-14 | MM_ITS ---
EXAMINATION: MM SCREENING DIGITAL BREAST TOMOSYNTHESIS, BILATERAL CLINICAL INFORMATION: Screening. Asymptomatic. The lifetime risk of breast cancer based on the Tyrer-Cuzick Model is 8%. COMPARISON: Mammography: 01/07/2022, 01/05/2021, outside mammography 10/27/[address]) TECHNIQUE: Digital breast tomosynthesis is performed in both the craniocaudal and mediolateral oblique views along with computer-aided detection (CAD). Synthesized 2D images are generated from the tomosynthesis. FINDINGS: There are scattered areas of fibroglandular density (ACR BI-RADS breast composition Category b). There are no significant masses, abnormal calcifications, or other abnormalities. There is a fibronodular parenchymal pattern similar to prior studies. No developing density or architectural abnormality. The axilla and skin contours are unremarkable. MM/MM tomosynthesis screening BI IMPRESSION: No mammographic evidence of malignancy. ASSESSMENT: BI-RADS 2: Benign RECOMMENDATION: Routine annual mammography screening. This patient's information was entered into a reminder system with a target due date for their next mammogram.
== END 2023-03-14 10:57 | disposition home or self-care (01) ==
LOC: HO.MAMMO 10:56
PROVIDERS: Absent Provider Obstetrics & Gynecology; PCP Internal Medicine; Visit Provider Internal Medicine
DX: Z12.31 Encounter for screening mammogram for malignant neoplasm of breast (principal)
CPT/HCPCS: 77063; 77067

== ENCOUNTER 2023-04-10 09:05 | Outpatient (REF) | payer OTHER, SELFPAY ==
[2023-04-10 12:40] LABS: Free T4 (Free Thyroxine) 1.24 ng/dL (0.71-1.85); Thyroid Stimulating Hormone 2.76 uIU/mL (0.32-4.0); Vitamin D 25-OH Total 46.2 ng/mL (>30)
[2023-04-10 13:02] LABS: Alanine Aminotransferase 11 U/L (0-31); Albumin Level 3.8 g/dL (3.5-5.0); Alkaline Phosphatase 59 U/L (39-117); Anion Gap 14 (12-20); Aspartate Amino Transferase 15 U/L (5-31); Bilirubin Total 0.3 mg/dL (0.0-1.0); Blood Urea Nitrogen 20 mg/dL (9-16); Calcium 9.5 mg/dL (8.4-10.2); Carbon Dioxide 22 mmol/L (22-29); Chloride 108 mmol/L (96-108); Cholesterol 244 mg/dL; Estimated Glomerular Filt Rate 60; Glucose Random 114 mg/dL (60-115); HDL Cholesterol 65 mg/dL; LDL Cholesterol Calculated 158 mg/dl; Phosphorus 3.4 mg/dL (2.7-4.5); Potassium 4.4 mmol/L (3.3-5.1); Sodium 140 mmol/L (135-145); Triglycerides 109 mg/dL
[2023-04-12 18:58] LABS: Calcium (PTHI) 9.2 mg/dL (8.6-10.4); PTHI 63 pg/mL (16-77)
== END 2023-04-10 09:06 | disposition home or self-care (01) ==
LOC: HO.HMGCLDS 09:05
PROVIDERS: PCP Internal Medicine; Visit Provider Internal Medicine
DX: Z00.01 Encounter for general adult medical examination with abnormal findings (principal); E21.3 Hyperparathyroidism, unspecified; E03.9 Hypothyroidism, unspecified; E55.9 Vitamin D deficiency, unspecified
CPT/HCPCS: 36415; 80053; 80061; 82306; 83970; 84100; 84439; 84443

== ENCOUNTER 2023-04-26 10:23 | Outpatient (AMB) | payer OTHER, SELFPAY ==
--- NOTE | 2023-04-26 10:36 | MHC.OFFVIS ---
Intake Vital Signs 04/26/23 10:37 Height 5 ft 3 in Weight 192 lb 7.417 oz BMI 34.1 BP 118/74 Blood Pressure Location Lt brachial Position Sitting Pulse 72 Pulse Source Pulse Oximeter Intake Visit Reasons: F/U Osteoporosis Intake Note: New patient to Dr. Boo present today for Osteoporosis. Previously followed by Dr. Church. 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 Accompanied by: Self / Same As Patient Allergies No Known Allergies [No Known Allergies*] Allergy (Verified 04/26/23 10:40) Medication List - Last Reconciled 04/26/23 by Brendon Boo MD azathioprine 50 mg PO DAILY 30 days calcium carbonate (Calcium) 600 mg PO BID cetirizine (Allergy Relief (cetirizine)) 10 mg PO DAILY PRN cholecalciferol (vitamin D3) 50 mcg PO QWEEK diclofenac sodium 1% (Arthritis Pain (diclofenac)) 4 grams topical QID PRN levothyroxine 88 mcg PO DAILY@0630 30 days loperamide (Imodium A-D) 2 mg PO Q4H PRN mesalamine ER (Pentasa) 1,000 mg PO QID pantoprazole 40 mg PO DAILY HPI HPI Comments History of Present Illness Details 62 YO Female with PMHx Crohn's disease, Osteoporosis and Hypothyroidism who is seen in F/U for the same.. Patient last saw Dr. Church on 01/09/2023 First diagnosed in 2020 with her most recent BMD. Her prior BMD was completed at [facility] in the early and per her report revealed Osteopenia. After our initial visit we completed a full biochemical assessment which revealed elevated PTH levels. 03/15/2021 Calcium 9.0, PTH 96, Albumin 3.7, Vitamin D 39.4. 24 hour urine calcium was completely WNL. She had an US of the neck which revealed a L sided 1.9 cm hypoechoic lesion which possibly represents a parathyroid adenoma. We repeated labs more recently, and PTH was WNL with a low Vitamin D. 24 hour urine calcium was low. Labs repeated again still with Vitamin D below goal, and PTH elevated. She was started on Calcium supplement BID, and repeat labs revealed PTH had normalized. She did repeat her 24 hour urine collection, but this was an insufficient sample. Labs repeated again reveal Calcium and PTH WNL, and 24 hour urine collection was an adequate sample and WNL. Since that time labs have again been repeated, and PTH is elevated with Calcium WNL but Vitamin D low. She has never been treated for Osteoporosis. She does use protonix daily. Denies ever using anticoagulant, antiepileptic or glucocorticoid medication. Does weight bearing exercise 2-3 days per week in the form of walking or running, for 1 hour at a time. Fracture history: in her 30's she had a traumatic fracture of her arm and wrist after she fell on the stairs. 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 . Menopause was at age 51. Denies history of Kidney stones: Denies family history of Osteoporosis, but her sister did have a traumatic hip fracture. UTD on dental cleanings and sees dentist every 6 months. No planned upcoming dental work or extractions. She has full dentures. DXA dated 01/05/2021: FINDINGS: AP SPINE L1-L4: BMD 0.871 g/cm2, Z-score -2.2, T-score -2.6, osteoporosis. LEFT FEMUR, NECK: BMD 0.738 g/cm2, Z-score -1.5, T-score -2.2, osteopenia. LEFT FEMUR, TOTAL: BMD 0.779 g/cm2, Z-score -1.5, T-score -1.8, osteopenia. US Thyroid: 04/01/2021 Right Thyroid Lobe: 3.5 x 1.3 x 1.0 cm, volume 2.4 mL. Parenchyma: The gland echotexture is heterogeneous. Thyroid vascularity is normal. Left Thyroid Lobe: 4.0 x 1.0 x 1.0 cm, volume 2.1 mL. Parenchyma: The gland echotexture is heterogeneous. Thyroid vascularity is normal. Isthmus: 0.1 cm in maximum AP dimension. No focal thyroid nodule is seen. NODES: Left level 4 lymph node measuring 1.9 x 0.8 x 1.0 cm with normal architecture. Labs: Laboratory Tests 11/23/22 11/23/22 09:34 09:34 Sodium 142 Potassium 4.6 Creatinine 0.90 Estimated GFR > 60 25-OH Vitamin D To mahogany 25.7 TSH 2.92 Free T4 1.21 PTH Intact 79 H Calcium (PTH Intac t) 9.5 PTH is now normalized on vitamin-D supplementation and calcium supplementation [facility] Medical History Acquired hypothyroidism COVID-19 GERD (gastroesophageal reflux disease) History of COVID-19 History of shingles Hyperparathyroidism Large breasts Morbid obesity Osteoporosis Overactive bladder Postmenopause RLS (restless legs syndrome) Upper back pain, chronic Vitamin D deficiency Surgical History H/O partial resection of colon History of appendectomy History of bowel resection History of esophagogastroduodenoscopy Hx of cholecystectomy Hx of colonoscopy Hx of tonsillectomy Family History Father Lung cancer Mother Diabetes Hypertension Sister No problems noted. Mother Diabetes Paternal Grandmother Diabetes Father Lung cancer Paternal Uncle Lung cancer Social History Household Members: Family Housing: Apartment Are you a primary career representative to a significant other at home: No Do you presently have visiting nurse or other home services: No Alcohol intake: current Alcohol intake frequency: holidays/special occasions only Patient Tobacco Use Status: Never used Tobacco e-Cigarette/Vaping Use: Never Used Second Hand Smoke Exposure: No service: No Current occupational status: unemployed and disabled Current occupation: [employer] Cognitive needs: No Hearing needs: No Vision needs: Yes Female Reproductive History Menstrual Age of Menarche: 12 Physical Exam Vital Signs: Last Vital Signs Pulse 72 04/26/23 10:37 BP 118/74 04/26/23 10:37 BMI result Body Mass Index 34.1 Assessment & Plan Assessment & Plan (1) Hyperparathyroidism: Code(s): E21.3 - Hyperparathyroidism, unspecified Plan: PTH is now normalized on calcium and vitamin-D supplementation. Plan is to continue with current treatment. At this point, patient can follow up with primary care provider and return to endocrinology as needed (2) Acquired hypothyroidism: Code(s): E03.9 - Hypothyroidism, unspecified Plan: Clinically and biochemically euthyroid on 88 mcg levothyroxine. Patient returned to the care of her primary care provider regarding treatment of hypothyroidism Medications: Changed From cholecalciferol (vitamin D3) 50 mcg PO DAILY 30 caps 3RF To cholecalciferol (vitamin D3) 50 mcg PO QWEEK Coding Level of Care Code Est Pt Level 3 (53149) Diagnoses Hyperparathyroidism E21.3 Acquired hypothyroidism E03.9
[2023-04-26 10:37] VITALS: BP 118/74; PULSE 72; BMI 34.1
== END 2023-04-26 11:31 | disposition home or self-care (01) ==
PROVIDERS: PCP Internal Medicine; Visit Provider Internal Medicine Endocrinology, Diabetes & Metabolism
DX: E21.3 Hyperparathyroidism, unspecified (principal); E03.9 Hypothyroidism, unspecified
CPT/HCPCS: 99213

== ENCOUNTER → 2023-04-26 10:23 | Outpatient (BNVA) | payer OTHER, SELFPAY | PROVIDERS: Visit Provider Internal Medicine Endocrinology, Diabetes & Metabolism | DX: E21.3 Hyperparathyroidism, unspecified (principal); E03.9 Hypothyroidism, unspecified | CPT/HCPCS: 99212 ==

== ENCOUNTER 2023-06-13 07:35 | Outpatient (REF) | payer OTHER, SELFPAY ==
--- NOTE | 2023-06-13 07:39 | ECG_ITS ---
Test Reason : pre op Blood Pressure : / mmHG Vent. Rate : 063 BPM Atrial Rate : 063 BPM P-R Int : 174 ms QRS Dur : 072 ms QT Int : 384 ms P-R-T Axes : 037 021 058 degrees QTc Int : 392 ms Normal sinus rhythm Nonspecific ST and T wave abnormality Abnormal ECG When compared with ECG of 28-MAY-2022 04:52, QT has shortened Referred By: Yuli Garner Electronically Signed By:CARMELLA NICKERSON
[2023-06-13 07:51] LABS: MANUAL DIFF FLAG NO
[2023-06-13 08:11] LABS: Basophils Percent Auto 0.7 % (0-2); Eosinophils Percent Auto 0.7 % (0-4); Hematocrit 40.7 % (37.0-47.0); Hemoglobin 12.4 g/dl (12.0-16.0); Imm Gran Abs Auto 0.02 X10*3/uL (0.00-0.03); Imm Gran Pct Auto 0.4 % (0.0-0.4); Lymphocytes Absolute Auto 1.9 X10*3/uL (1.2-4.9); Lymphocytes Percent Auto 34.5 % (20-40); Mean Corpuscular HGB Conc 30.5 g/dl (31.0-35.0); Mean Corpuscular Hemoglobin 24.5 pg (27.0-33.0); Mean Corpuscular Volume 80.4 fL (80.0-98.0); Mean Platelet Volume 9.6 fL (9.4-12.3); Monocytes Absolute Auto 0.3 X10*3/uL (0.1-1.2); Monocytes Percent Auto 5.8 % (2-11); Neutrophils Absolute Auto 3.2 x10*3/uL (2.0-8.3); Neutrophils Percent Auto 57.9 % (45-73); Platelet Count 340 X10*3/uL (160-400); Red Blood Count 5.06 X10*6/uL (4.20-5.50); Red Cell Distribution Width 17.1 % (11.0-16.0); White Blood Count 5.5 X10*3/uL (4.8-10.8)
[2023-06-13 08:22] LABS: Anion Gap 16 (12-20); Blood Urea Nitrogen 14 mg/dL (9-16); Carbon Dioxide 19 mmol/L (22-29); Chloride 108 mmol/L (96-108); Estimated Glomerular Filt Rate 59; Glucose Fasting 117 mg/dL (60-99); Potassium 3.9 mmol/L (3.3-5.1); Sodium 139 mmol/L (135-145)
== END 2023-06-13 07:36 | disposition home or self-care (01) ==
LOC: HO.LAB 07:35
PROVIDERS: PCP Internal Medicine; Visit Provider Internal Medicine
DX: Z01.818 Encounter for other preprocedural examination (principal); K50.119 Crohn's disease of large intestine with unspecified complications
CPT/HCPCS: 36415; 80048; 85025; 93005

== ENCOUNTER 2023-06-20 11:51 | Outpatient (AMB) | payer OTHER, SELFPAY ==
--- NOTE | 2023-06-20 12:17 | MHC.PC.OV ---
Vital Signs 06/20/23 12:36 Height 5 ft 3 in Weight 197 lb BMI 34.9 BP 122/72 Blood Pressure Location Lt brachial Position Sitting Pulse 58 Pulse Source Pulse Oximeter Pulse Oximetry (%) 98 Intake Visit Reasons: Breast reduction PreOP Intake Note: pt is here for breast reduction pre op Allergies No Known Allergies [No Known Allergies*] Allergy (Verified 06/23/23 02:23) Medication List - Last Reconciled 06/23/23 by Yuli Garner MD azathioprine 50 mg PO DAILY 30 days calcium carbonate (Calcium) 600 mg PO BID 90 days cetirizine (Allergy Relief (cetirizine)) 10 mg PO DAILY PRN cholecalciferol (vitamin D3) 250 mcg PO 2XW 90 days diclofenac sodium 1% (Arthritis Pain (diclofenac)) 4 grams topical QID PRN levothyroxine 88 mcg PO DAILY@0630 30 days loperamide (Imodium A-D) 2 mg PO Q4H PRN mesalamine ER (Pentasa) 1,000 mg (2 x 500 mg) PO QID 90 days pantoprazole 40 mg PO DAILY Tobacco use date assessed: 03/20/23 Dental Screening Dental Screen Date: 06/20/23 Did you have a dental visit in the last 12 months?: No Did you have a dental problem in the last 6 months where you did not have access to dental care?: No Was dental information given to patient?: Patient declined HPI Breast reduction PreOP HPI Details 62-year-old lady here today for preoperative exam for reduction mammoplasty, scheduled for 07/20/2023, requested by Dr. Leidy Doty. She has acquired hypothyroidism, and hyperparathyroidism, prediabetes, GERD, dyslipidemia and history of Crohn's colitis, currently stable and controlled on present treatment. She has been feeling well except for recurrent upper and lower back pain. [facility] Medical History (Updated 06/23/23 @ 02:46 by Yuli Garner MD) Dyslipidemia Impaired fasting glucose History of COVID-19 GERD (gastroesophageal reflux disease) COVID-19 Morbid obesity Hyperparathyroidism Overactive bladder Upper back pain, chronic Large breasts Vitamin D deficiency Osteoporosis Postmenopause History of shingles Acquired hypothyroidism RLS (restless legs syndrome) Surgical History History of bowel resection History of esophagogastroduodenoscopy Hx of colonoscopy Hx of cholecystectomy Hx of tonsillectomy History of appendectomy H/O partial resection of colon Family History Father Lung cancer Mother Diabetes Hypertension Sister No problems noted. Mother Diabetes Paternal Grandmother Diabetes Father Lung cancer Paternal Uncle Lung cancer Social History Household Members: Family Housing: Apartment Are you a primary career based intervention coordinator to a significant other at home: No Do you presently have visiting nurse or other home services: No Alcohol intake: current Alcohol intake frequency: holidays/special occasions only Patient Tobacco Use Status: Never used Tobacco e-Cigarette/Vaping Use: Never Used Second Hand Smoke Exposure: No service: No Current occupational status: unemployed and disabled Current occupation: [employer] Cognitive needs: No Hearing needs: No Vision needs: Yes Female Reproductive History Menstrual Age of Menarche: 12 Questionnaire PHQ-9 Over the last 2 weeks, how often have you been bothered by any of the following problems? Depression Screening Interpretation: Negative Depression Screening Done: Yes Source: Developed by Drs. Brendon Muñoz, Kasey Becker, Raul Sweet and colleagues, with an educational bakari from [employer]. Thrive Questionnaire Date Thrive assessed: 07/25/22 AUDIT C Alcohol Use Questionnaire (AUDIT-C) 1. How often do you have a drink containing alcohol?: Never Total Score: 0 NICOLE-7 AMB Questionnaire NICOLE-7 Date NICOLE - 7 assessed: 06/10/22 Source: Developed by Drs. Brendon Muñoz, Raul Huynh and colleagues, with an educational bakari from [employer]. Review of Systems Const Denies fever(s), Denies headache(s), Denies lethargy and Denies weight loss Eyes Details: Sees Dr. Tang in [facility] Denies change in vision and Reports requires corrective lenses ENT Details: Dentures both upper and lower Denies dysphagia, Denies dizziness and Denies headache(s) Card Denies chest pain, Denies leg edema and Denies dyspnea on exertion Resp Denies cough, Denies dyspnea on exertion and Denies wheezing GI Denies hematochezia, Denies change in bowel habits and Denies dysphagia Reports no additional complaints Musc Reports back pain (Upper back strain) and Denies arthralgias Skin/Breast Denies pruritus, Denies rash and Denies jaundice Neuro Denies Abnormal speech present, Denies dizziness, Denies headache(s) and Denies seizure-like activity Psych Reports no additional complaints Endo Denies cold intolerance, Denies flushing and Denies heat intolerance Domenic/Lymph Denies easy bleeding and Denies easy bruising Aller/Immun Denies wheezing Physical exam (Primary Care) Vital Signs: Last Vital Signs Pulse 58 06/20/23 12:36 BP 122/72 06/20/23 12:36 Pulse Ox 98 06/20/23 12:36 BMI result Body Mass Index 34.9 Tobacco/Smoking Status: Tobacco use Status Tobacco use date assessed 03/20/23 06/20/23 12:18 Patient Tobacco Use Status Never used Tobacco 06/20/23 12:18 e-Cigarette/Vaping Use Never Used 06/20/23 12:18 Depression Screening Interpretation: Negative Thrive Assessment: Date of Thrive Assessment Date Thrive assessed 07/25/22 06/20/23 12:18 Const General: comfortable and no acute distress Nutritional Appearance: obese Orientation/consciousness: patient oriented x3 HENMT Mouth: Normal oral and palatal mucosa present, tongue normal, oropharynx normal and moist mucous membranes Eyes General: appearance normal, both eyes and all related structures Neck Neck: Yes full ROM, Yes no lymphadenopathy and Yes supple Chest Other: Large pendulous breasts, no mass palpated, no abnormal nipple discharge Resp Effort & Inspection: normal respiratory effort and able to speak in complete sentences Auscultation: clear to auscultation bilaterally Cardio Other: S1-S2 present regular rate and rhythm GI Inspection: Yes obesity Palpation (GI): Soft to palpation, nontender, no guarding and no masses Percussion: Yes normal to percussion Auscultation: normal bowel sounds and Hyperactive bowel sounds present Other: Sees Dr. Arana General: Yes deferred Back/Spine/Pelvis Back: No back tenderness Skin General skin exam: no rashes or lesions noted Neuro General: patient oriented x3, gait normal, moves all extremities, no focal motor deficits and normal sensation to monofilament Speech: No Abnormal speech present Extrem General: Yes full ROM, Yes no joint enlargement, Yes no clubbing, cyanosis or edema, Yes no calf tenderness and Yes normal gait Psych Appearance: grossly normal and well kempt Mental Status: mental status grossly normal Speech and movement: Normal speech and movement present Affect: normal affect Attitude: cooperative Thought process: Normal thought process present Thought content: Normal thought content present Office Procedures Flu Questionnaire Does the patient have a severe egg allergy?: No Does the patient have severe life threatening allergies?: No Does the patient have a fever or illness today?: No Has the patient ever had Guillain-Scalf Syndrome?: No Has the patient ever had any past reaction to a flu shot?: No Immunizations flu vacc [id number] 6mos up(PF) 60 mcg(15 mcgx4)/0.5 mL IM syringe Performing Provider: Yuli Garner MD [facility] Administered by: Brenda Zavala CMA on 06/20/23 13:26 Dose Route Admin Location Dispensed Lot Number Expiration Date NDC Route Driver [employer] 0.5 mL IM Left Deltoid 0.5 mL [id number] 03/17/24 33984-259-74 [employer] VIS Given Date VIS Provided VIS Publication Date 06/20/23 Single Vaccine 21 Eligibility Eligibility Date Funding Source Not VFC Eligible 06/20/23 Private Results Reviewed Results Reviewed: Name: Meredith Bravo Age/Sex: 62/F : 1960 Unit#: [id number] Attend Dr: Yuli Garner MD Re06/13/23 Status: DEP [facility]: SPEC : [id number] JOSE: 06/13/23 STATUS: COMP REQ : [id number] RECD: 06/13/[address]: Yuli Garner MD COMP: 06/13/23 ENTERED: 06/13/[address]: ORDERED: CBC Auto Diff Test Result Flag Reference Site WBC 5.5 4.8-10.8 X10*3/uL RBC 5.06 4.20-5.50 X10*6/uL HGB 12.4 12.0-16.0 g/dl HCT 40.7 37.0-47.0 % MCV 80.4 80.0-98.0 fL MCH 24.5 L 27.0-33.0 pg MCHC 30.5 L 31.0-35.0 g/dl RDW 17.1 H 11.0-16.0 % PLT 340 160-400 X10*3/uL ENTERED: 06/13/23-0739 TATA JUAREZ: ORDERED: Met Prof Fast Test Result Flag Reference Site Sodium 139 135-145 mmol/L Potassium 3.9 3.3-5.1 mmol/L CL 108 96-108 mmol/L CO2 19 L 22-29 mmol/L Gap 16 12-20 BUN 14 9-16 mg/dL Creat 0.96 0.5-1.4 mg/dL EGFR 59 NOTE: For -[place] individuals, multiply the result by 1.210. Chronic Kidney Disease: Estimated GFR < 60 mL/min/1.73m2 Severe Kidney Disease: Estimated GFR < 15 mL/min/1.73m2 FBS 117 H 60-99 mg/dL A fasting glucose from 100-125 mg/dl is considered impaired (pre-diabetes). CA 9.0 8.4-10.2 mg/dL Date of Service: 03/14/23 MM SCREENING DIGITAL BREAST TOMOSYNTHESIS, BILATERAL CLINICAL INFORMATION: Screening. Asymptomatic. The lifetime risk of breast cancer based on the Tyrer-Cuzick Model is 8%. COMPARISON: Mammography: 01/07/2022, 01/05/2021, outside mammography 10/27/2017 ([facility]) TECHNIQUE: Digital breast tomosynthesis is performed in both the craniocaudal and mediolateral oblique views along with computer-aided detection (CAD). Synthesized 2D images are generated from the tomosynthesis. FINDINGS: There are scattered areas of fibroglandular density (ACR BI-RADS breast composition Category b). There are no significant masses, abnormal calcifications, or other abnormalities. There is a fibronodular parenchymal pattern similar to prior studies. No developing density or architectural abnormality. The axilla and skin contours are unremarkable. MM/MM tomosynthesis screening BI IMPRESSION: No mammographic evidence of malignancy. ASSESSMENT: BI-RADS 2: Benign Assessment and Plan Assessment & Plan (1) Preoperative examination: Code(s): Z01.818 - Encounter for other preprocedural examination Plan: [age] year old lady here for preoperative clearance for reduction mammoplasty scheduled for 07/20/2023. She has no history of coronary disease or pulmonary disease. EKG showed Normal sinus rhythm, short QT interval, nonspecific ST and T wave changes her preoperative exam is unremarkable. Recent lab results done showed CBC, electrolytes with results within normal limits. She has a low cardiac risk index for proposed surgery. (2) Acquired hypothyroidism: Code(s): E03.9 - Hypothyroidism, unspecified Plan: Currently on levothyroxine 88 mcg daily (3) Morbid obesity: Code(s): E66.01 - Morbid (severe) obesity due to excess calories (4) Impaired fasting glucose: Code(s): R73.01 - Impaired fasting glucose Plan: Latest fasting labs showed fasting glucose within normal limits. Lifestyle changes at just weight loss, healthy eating habits, and regular exercise are important, and can prevent the progression to diabetes (5) Crohn's colitis: Code(s): K50.10 - Crohn's disease of large intestine without complications Qualifiers: Digestive disease complication type: unspecified complication Qualified Code(s): K50.119 - Crohn's disease of large intestine with unspecified complications Plan: Currently asymptomatic, controlled on Pentasa, azathioprine, and loperamide as needed. (6) Osteoporosis: Code(s): M81.0 - Age-related osteoporosis without current pathological fracture Qualifiers: Osteoporosis type: age-related Presence of current pathological fracture: without current pathological fracture Qualified Code(s): M81.0 - Age-related osteoporosis without current pathological fracture Plan: Stressed importance of doing regular weight-bearing exercise, continue taking vitamin-D 3 supplements, and take adequate calcium from dietary sources. Repeat Bone density scan (7) GERD (gastroesophageal reflux disease): Code(s): K21.9 - Gastro-esophageal reflux disease without esophagitis Qualifiers: Esophagitis presence: without esophagitis Qualified Code(s): K21.9 - Gastro-esophageal reflux disease without esophagitis Plan: Currently on pantoprazole 40 mg daily (8) Flu vaccine need: Code(s): Z23 - Encounter for immunization Plan: Flu vaccine given today Orders: Orders Comprehensive [place]. Panel Fast 09/11/23 E03.9 - Hypothyroidism, unspecified, E21.3 - Hyperparathyroidism, unspecified, E66.01 - Morbid (severe) obesity due to excess calories, E78.5 - Hyperlipidemia, unspecified, M81.0 - Age-related osteoporosis without current pathological fracture, R73.01 - Impaired fasting glucose Thyroid Stimulating Hormone 09/11/23 E03.9 - Hypothyroidism, unspecified, E21.3 - Hyperparathyroidism, unspecified, E66.01 - Morbid (severe) obesity due to excess calories, E78.5 - Hyperlipidemia, unspecified, M81.0 - Age-related osteoporosis without current pathological fracture, R73.01 - Impaired fasting glucose Free T4 (Free Thyroxine) 09/11/23 E03.9 - Hypothyroidism, unspecified, E21.3 - Hyperparathyroidism, unspecified, E66.01 - Morbid (severe) obesity due to excess calories, E78.5 - Hyperlipidemia, unspecified, M81.0 - Age-related osteoporosis without current pathological fracture, R73.01 - Impaired fasting glucose Lipid Panel 09/11/23 E03.9 - Hypothyroidism, unspecified, E21.3 - Hyperparathyroidism, unspecified, E66.01 - Morbid (severe) obesity due to excess calories, E78.5 - Hyperlipidemia, unspecified, M81.0 - Age-related osteoporosis without current pathological fracture, R73.01 - Impaired fasting glucose XR DEXA axial skeleton 06/20/23 M81.0 - Age-related osteoporosis without current pathological fracture Influenza [id number] Immunization 06/20/23 Z23 - Encounter for immunization Hemoglobin A1c 09/11/23 E03.9 - Hypothyroidism, unspecified, E21.3 - Hyperparathyroidism, unspecified, E66.01 - Morbid (severe) obesity due to excess calories, E78.5 - Hyperlipidemia, unspecified, M81.0 - Age-related osteoporosis without current pathological fracture, R73.01 - Impaired fasting glucose Vitamin D 25-OH Total 09/11/23 E03.9 - Hypothyroidism, unspecified, E21.3 - Hyperparathyroidism, unspecified, E66.01 - Morbid (severe) obesity due to excess calories, E78.5 - Hyperlipidemia, unspecified, M81.0 - Age-related osteoporosis without current pathological fracture, R73.01 - Impaired fasting glucose Coding Level of Care Code Est Pt Level 4 (09679) Diagnoses Preoperative examination Z01.818 Acquired hypothyroidism E03.9 Morbid obesity E66.01 Impaired fasting glucose R73.01 Crohn's disease of colon with complication K50.119 Digestive disease complication type: unspecified complication Age-related osteoporosis without current pathological fracture M81.0 Osteoporosis type: age-related Presence of current pathological fracture: without current pathological fracture Gastroesophageal reflux disease without esophagitis K21.9 Esophagitis presence: without esophagitis Flu vaccine need Z23
[2023-06-20 12:36] VITALS: BP 122/72; PULSE 58; O2SAT 98; BMI 34.9
== END 2023-06-20 13:33 | disposition home or self-care (01) ==
PROVIDERS: PCP Internal Medicine; Visit Provider Internal Medicine
DX: Z23 Encounter for immunization (principal)
CPT/HCPCS: 90471; 90686; 99214

== ENCOUNTER 2023-06-29 12:23 | Outpatient (AMB) | payer OTHER, SELFPAY ==
--- NOTE | 2023-06-29 12:29 | A.OFFVIS_ITS ---
Intake Vital Signs 06/29/23 12:44 Height 5 ft 3 in Weight 194 lb 0.108 oz BMI 34.4 BP 128/78 Blood Pressure Location Lt brachial Position Sitting Pulse 82 Intake Visit Reasons: 6 month follow up Intake Note: Meredith presents in the office as a 6 month follow up. CC: She is having a breast reduction 11-2 and she will be laid up for up to 8 weeks. She wants to know if there is another time that she can have her Colonoscopy. Her crohn's has not really been acting up but every now and then she gets pains in the stomach. She is not having a BM every day the way she states that she should. Allergies No Known Allergies [No Known Allergies*] Allergy (Verified 06/29/23 12:45) Medication List - Last Reconciled 06/29/23 by Chelsie Navas MD calcium carbonate (Calcium) 600 mg PO BID 90 days cetirizine (Allergy Relief (cetirizine)) 10 mg PO DAILY PRN cholecalciferol (vitamin D3) 250 mcg PO 2XW 90 days diclofenac sodium 1% (Arthritis Pain (diclofenac)) 4 grams topical QID PRN levothyroxine 88 mcg PO DAILY@0630 30 days loperamide (Imodium A-D) 2 mg PO Q4H PRN mesalamine ER (Pentasa) 1,000 mg (2 x 500 mg) PO QID 90 days pantoprazole 40 mg PO DAILY HPI 6 month follow up HPI Details GI CLINIC VISIT FOR THIS 62-YEAR-OLD FEMALE WITH GERD, OSTEOPOROSIS, HYPOTHYROIDISM, HYPERPARATHYROIDISM HERE FOR FOLLOW-UP OF CROHN'S DISEASE. Patient has been followed by Dr. Jordan since 2012. [place]/28 [place]03[place] [facility] [place] [facility] associated with diarrhea She was treated with Flagyl and Levqaquin for 7 days. IMAGING STUDIES:? 05/28/[address] SCAN SHOWED: Suspect partial colectomy. Fluid throughout mildly dilated large and small bowel as well as within the rectal vault. Findings suggest hypersecretion and mild ileus. ? Approximately 1 cm L4 sclerotic lesion, not otherwise characterized. No other sclerotic or lytic bony lesion identified. In the absence of known or suspected malignancy elsewhere (for example, breast cancer), the finding probably represents a bone island. Recommend clinical correlation. 05/[address] SCAN SHOWED: Status post subtotal colectomy.? Multiple dilated loops of small and large bowel with slight increased prominence and proximal loops of small bowel.? There was several air-fluid levels. ? ENDOSCOPIC STUDIES: 07/02/21 SIGMOIDOSCOPY SHOWED: Focal 2-4 cms area of ulcerations just proximal to the ileo-colic anastomosis - multiple biopsies were obtained.? Normal small bowel mucosa proximally. No polyps were detected. Decreased vascularity due to inactive Crohn's disease in the colon - surveillance biopsies were obtained. Plan:? Repeat Colonoscopy interval based on path results - in 2 years if no dysplasia on colon biopsies. BIOPSIES SHOWED: A.? Terminal ileum, biopsy:? Ileocolonic mucosa with mild crypt disarray; otherwise within normal limits. B.? Colon, 25 cm, biopsy:? Colonic mucosa within normal limits. C.? Colon, 15 cm, biopsy:? Colonic mucosa within normal limits. D.? Colon, 5 cm, biopsy:? Colonic mucosa within normal limits. COMMENT:? No dysplasia or granulomata are seen. 05/2018 FLEXIBLE SIGMOIDOSCOPY SHOWED: No polyps seen. Dilated small bowel with scattered 1 -1.5 cms ulcers througout - biopsies were obtained for histology and viral cultures. Significant amounts of stool not seen in the small intestine. Ileo-colic anastomosis at 35 cms. Circumferential ulcers with cobblestone appearance - multiple biopsies were obtained. Colonoscope passed easily through the anastomosis and no obstruction noted. Endoscopic appearance suggestive of Crohn's disease - other possibilities include CMV infection or ischemic ulcers related to past surgery/ small bowel dilation. Plan: Await pathology results. Resume a clear liquid diet as tolerated until biopsy results are available. Repeat Colonoscopy interval based on path results. BIOPSIES SHOWED: A.? SMALL BOWEL ULCER, BIOPSIES:? FRAGMENTS OF SMALL INTESTINAL MUCOSA WITH ACTIVE ILEITIS AND ULCERATION WITH RARE CYTOMEGALOVIRUS INCLUSIONS (SEE NOTE). B.? COLON, ULCER, BIOPSIES:? FRAGMENTS OF SMALL INTESTINAL AND COLONIC MUCOSA AND GRANULATION TISSUE WITH MILD CHRONIC ACTIVE COLITIS (SEE NOTE). C.? RECTUM, BIOPSIES:? FRAGMENTS OF HYPERPLASTIC COLONIC MUCOSA. NOTE:? THERE IS CRYPT ARCHITECTURAL DISTORTION, GLANDULAR BUDDING AND SUBMUCOSAL MIXED INFLAMMATORY INFILTRATES.? THESE FINDINGS MAY BE DUE TO THE CMV INFECTION, BUT THERE MAY BE UNDERLYING CROHN'S DISEASE OR ULCERATIVE COLITIS.? RECOMMEND TREATING CMV INFECTION AND FOLLOW-UP ENDOSCOPY WITH BIOPSIES TO RULE OUT INFLAMMATORY BOWL DISEASE. TODAY'S VISIT: Scheduled for breast reduction on 07/20/23 and unable to lie on her side for 8 weeks. She would like to reschedule to spring. Sometimes I cant go and sometimes it hurts to have a BM Noted blood in the stools last few days since she was pushing too hard and straining to go Taking Pentasa 4 times a day. Has a powder at home and has not been using it. PAST VISITS: Had an episode of nausea, vomiting and diarrhea a few weeks ago which lasted 24 hrs. She is doing well now. Had dark stools after she has spinach and broccoli. Lab and stool tests were reviewed - CRP slightly elevated. Planning to travel to [place] with her niece in January Going to [place] in March. Fecal calprotectin were normal. Bloating has resolved. Going normal with 1-3 times a day with passage of normal stools Cold sweats have resolved - thinks it was related to COVID infection. Had her 2nd Booster for COVID a few months Feels she has an infection. Intermittent cold sweats. Constantly going to the bathroom to urinate. Diarrhea is not as bad as while she was in the hospital. BMs are dark (blackish) Has been having a few loose pudding like BMs per day. Concerned about recurrent CMV infection. Upset since her sister with PMR in Nov 07, 2021. An aunt and sister as well Has to go to [place] in January to help her aunt. Going to the bathroom regularly. Once in a great while, she can see some blood (a little dot) Can have some abdominal pain - when she was very stressed and not eating right. Has been very stressed. Has been doing well since she had the subtotal colectomy without recurrent SBO. Has been taking the Pentasa 1 gram 4 times a day for the past several yrs. Continues to have heartburn - comes on all of a sudden - mostly at night. Takes Senna if she does not have a BM for a day and is able to go the next morning. Patient denies major cardiac or pulmonary problems, loud snoring or sleep apnea. Denies problems with anesthesia in the past. Denies being on chronic anticoagulation. Patient denies known family history of other GI malignancies. Sister had cancer in one of the polyps and had surgery and is doing fine now. PAST GI HISTORY BY REVIEW OF MEDICAL RECORDS: IBD SUMMARY YEAR OF DIAGNOSIS:? 2000 DISEASE EXTENT:Colon and small intestines LAST COLONOSCOPY FINDINGS:06/2021 as noted above NEXT COLON DUE: 2022 EXTRAINTESTINAL MANIFESTATIONS: Denies skin rash, joint pains or eye pain GI SURGERY:? Colon resection 2000 - subtotal colectomy. CURRENT THERAPY:? Pentasa 1 gram 4 times daily, Senna for constipation VACCINATIONS: Flu shot:? Gets Flu shot every year. Hep A/B serology /vaccination:?unsure [facility] Medical History Dyslipidemia Impaired fasting glucose History of COVID-19 GERD (gastroesophageal reflux disease) COVID-19 Morbid obesity Hyperparathyroidism Overactive bladder Upper back pain, chronic Large breasts Vitamin D deficiency Osteoporosis Postmenopause History of shingles Acquired hypothyroidism RLS (restless legs syndrome) Surgical History History of bowel resection History of esophagogastroduodenoscopy Hx of colonoscopy Hx of cholecystectomy Hx of tonsillectomy History of appendectomy H/O partial resection of colon Family History Father Lung cancer Mother Diabetes Hypertension Sister No problems noted. Mother Diabetes Paternal Grandmother Diabetes Father Lung cancer Paternal Uncle Lung cancer Social History Household Members: Family Housing: Apartment Are you a primary career education teacher to a significant other at home: No Do you presently have visiting nurse or other home services: No Alcohol intake: current Alcohol intake frequency: holidays/special occasions only Patient Tobacco Use Status: Never used Tobacco e-Cigarette/Vaping Use: Never Used Second Hand Smoke Exposure: No service: No Current occupational status: unemployed and disabled Current occupation: [employer] Cognitive needs: No Hearing needs: No Vision needs: Yes Female Reproductive History Menstrual Age of Menarche: 12 Review of Systems Const All systems reviewed & are unremarkable except as noted in HPI and below Physical Exam Vital Signs: Last Vital Signs Pulse 82 06/29/23 12:44 BP 128/78 06/29/23 12:44 BMI result Body Mass Index 34.4 Const General: healthy appearing and no acute distress Nutritional Appearance: obese and Edematous Orientation/consciousness: patient oriented x3 Limitations: no limitations HEENT Head: Yes normal to inspection Ears: hearing grossly normal bilaterally Eyes Sclerae: sclerae normal Pupils: Equal, round and reactive pupils present Neck Neck: Yes normal visual inspection Chest Chest palpation & inspection: normal inspection of the chest Resp Effort & Inspection: normal respiratory effort Auscultation: clear to auscultation bilaterally Cardio Palpation: normal PMI Rate: regular rate Rhythm: regular rhythm Heart sounds: S1 normal heart sound present, S2 normal heart sound present and no murmurs GI Inspection: Yes scar Palpation (GI): Soft to palpation, nontender and No hepatosplenomegaly present Auscultation: normal bowel sounds Rectal Exam - Female: deferred Skin General skin exam: no rashes or lesions noted Neuro General: patient oriented x3, gait normal and moves all extremities Cranial nerves: Yes Equal, round and reactive pupils present Psych Appearance: grossly normal Mental Status: mental status grossly normal Assessment & Plan Assessment & Plan (1) Crohn's colitis: Code(s): K50.10 - Crohn's disease of large intestine without complications Qualifiers: Digestive disease complication type: unspecified complication Qualified Code(s): K50.119 - Crohn's disease of large intestine with unspecified complications (2) Chronic constipation: Code(s): K59.09 - Other constipation (3) GERD (gastroesophageal reflux disease): Code(s): K21.9 - Gastro-esophageal reflux disease without esophagitis Qualifiers: Esophagitis presence: without esophagitis Qualified Code(s): K21.9 - Gastro-esophageal reflux disease without esophagitis Plan 62 YF with Crohn's disease involving the small bowel and colon and is status post subtotal colectomy. Patient has been followed by Dr. Jordan since 2012. 05/2018 Flex Sig showed?Dilated small bowel with scattered 1 -1.5 cms ulcers througout - biopsies were positive for CMV inclusion and patient was treated for CMV. Ileo-colic anastomosis at 35 cms. Circumferential ulcers with cobblestone appearance - multiple biopsies were obtained 06/2021 Flexible Sig was performed and showed: Focal 2-4 cms area of ulcerations just proximal to the ileo-colic anastomosis - multiple biopsies were obtained.? Normal small bowel mucosa proximally. No polyps were detected. Decreased vascularity due to inactive Crohn's disease in the colon - surveillance biopsies were obtained. Plan:? Repeat Colonoscopy interval based on path results - in 2 years if no dysplasia on colon biopsies (due 06/2023) Patient's symptoms are well controlled with Pentasa 1 g 4 times daily. 07/2021 Pt was started on azathioprine due to focal area of ulcerations in the TI proximal to the anastomosis. Pt [place] from 05/28 to 06/03/22 [place] [facility] [place] associated with diarrhea She was treated with Flagyl and Levqaquin for 7 days. Pt had postprandial abd discomfort with bloating after her hospitalization which has resolved. Pt was advised to go on a FODMAP diet for 6 weeks CRP slightly elevated at 0.61 and stool calprotectin was normal. 06/29/23 Scheduled for breast reduction on 07/20/23 and unable to lie on her side for 8 weeks. Meredith would like to reschedule her colonoscopy from 08/28/23 to spring. FU in 6 months. Medications: New polyethylene glycol 3350 (Miralax) 17 grams PO DAILY 60 days 1,020 grams 1RF K59.09 - Other constipation Coding Level of Care Code Est Pt Level 4 (00650) Diagnoses Crohn's disease of colon with complication K50.119 Digestive disease complication type: unspecified complication Chronic constipation K59.09 Gastroesophageal reflux disease without esophagitis K21.9 Esophagitis presence: without esophagitis Time Spent (min) 26
[2023-06-29 12:44] VITALS: BP 128/78; PULSE 82; BMI 34.4
== END 2023-06-29 13:12 | disposition home or self-care (01) ==
PROVIDERS: Visit Provider Internal Medicine Gastroenterology
DX: K50.119 Crohn's disease of large intestine with unspecified complications (principal); K59.09 Other constipation; K21.9 Gastro-esophageal reflux disease without esophagitis
CPT/HCPCS: 99214

== ENCOUNTER → 2023-06-29 12:23 | Outpatient (BNVA) | payer OTHER, SELFPAY | PROVIDERS: Visit Provider Internal Medicine Gastroenterology | DX: K50.119 Crohn's disease of large intestine with unspecified complications (principal); K59.09 Other constipation; K21.9 Gastro-esophageal reflux disease without esophagitis | CPT/HCPCS: 99212 ==

== ENCOUNTER 2023-08-16 10:13 | Outpatient (REF) | payer OTHER, SELFPAY ==
--- NOTE | ~2023-08-16 | MM_ITS ---
EXAMINATION: BONE DENSITOMETRY CLINICAL INDICATION: Age-related osteoporosis without current pathological fracture. COMPARISON: Baseline BD dated 01/05/2021 for the spine and left hip; the baseline for the left forearm radius 33% is 08/11/2021. TECHNIQUE: Using a tidy DXA System (software version: 13.1) manufactured by [employer], dual-energy x-ray absorptiometry was performed of the lumbar spine and left hip and left forearm radius 33%. The images are of good technical quality. Summary results are attached. FINDINGS: LEFT FEMUR, NECK: Current: BMD 0.723 g/cm2, Z-score -1.3, T-score -2.3, osteopenia. Baseline: BMD 0.738 g/cm2. LEFT FEMUR, TOTAL: Current: BMD 0.763 g/cm2, Z-score -1.3, T-score -1.9, osteopenia, 2.1% decrease from baseline (<5% change is not significant). Baseline: BMD 0.779 g/cm2. AP SPINE L1-L4: Current: BMD 0.829 g/cm2, Z-score -2.2, T-score -2.9, osteoporosis, 4.8% decrease from baseline (<5% change is not significant). Baseline: BMD 0.871 g/cm2. LEFT FOREARM RADIUS 33%: BMD 0.740 g/cm2, Z-score -0.5, T-score -1.6, osteopenia, 3.0% decrease from baseline (<5% change is not significant). Baseline: BMD 0.763 g/cm2. IDENTIFIED RISK FACTORS: History of fracture (adult), hyperparathyroid, intestinal/bowel disease, menopause, secondary osteoporosis. HISTORY OF FRACTURE: Wrist, elbow. MEDICATIONS: Calcium, vitamin D. MM/XR DEXA appendicular skeleton IMPRESSION: 1. DIAGNOSIS: Severe osteoporosis based on the lowest T-score value of -2.9 in the lumbar spine, and the history of a wrist fracture, applying World Health Organization criteria. 2. 10-YEAR FRACTURE RISK PREDICTION, FRAX: According to the guidelines, FRAX calculation should only be performed on patients in the osteopenia bone density category. Therefore, FRAX was not performed on this patient. 3. Treatment Recommendations: NOF guidelines recommend consideration for treatment in postmenopausal women and men age 50 and older presenting with the following: -A hip or vertebral (clinical or morphometric) fracture. -T-score less than or equal to -2.5 at the femoral neck or spine after appropriate evaluation to exclude secondary causes. -Low bone mass at the hip or spine and a 10-year fracture probability by FRAX of greater than or equal to 3% for hip fracture or greater than or equal to 20% for major osteoporotic fracture based on the [place] adapted WHO algorithm. 4. Other Recommendations: All treatment decisions require clinical judgment and consideration of individual patient factors, including patient preferences, comorbidities, previous drug use, risk factors not captured in the FRAX model (e.g. frailty, falls, vitamin D deficiency, increased bone turnover, interval significant decline in bone density) and possible under or overestimation of fracture risk by FRAX. Additional medical evaluation for secondary cause of low bone mineral density may be appropriate. FUTURE SCAN RECOMMENDATION: People with diagnosed cases of osteoporosis or at high risk for fracture should have regular bone mineral density tests. For patients eligible for Medicare, routine testing is allowed once every 2 years. The testing frequency can be increased to one year for patients who have rapidly progressing disease, those who are receiving or discontinuing medical therapy to restore bone mass, or have additional risk factors.
== END 2023-08-16 10:14 | disposition home or self-care (01) ==
LOC: HO.MAMMO 10:13
PROVIDERS: PCP Internal Medicine; Visit Provider Internal Medicine
DX: Z13.820 Encounter for screening for osteoporosis (principal); Z78.0 Asymptomatic menopausal state; M81.0 Age-related osteoporosis without current pathological fracture
CPT/HCPCS: 77081

== ENCOUNTER 2023-08-30 07:49 | Outpatient (REF) | payer OTHER, SELFPAY ==
[2023-08-30 11:39] LABS: Estimated Average Glucose 117 mg/dL; Hemoglobin A1c % 5.7 % (<6.0)
[2023-08-30 11:46] LABS: Alanine Aminotransferase 9 U/L (0-31); Albumin Level 3.6 g/dL (3.5-5.0); Alkaline Phosphatase 60 U/L (39-117); Anion Gap 14 (12-20); Aspartate Amino Transferase 14 U/L (5-31); Bilirubin Total 0.3 mg/dL (0.0-1.0); Blood Urea Nitrogen 12 mg/dL (9-16); Calcium 8.9 mg/dL (8.4-10.2); Carbon Dioxide 25 mmol/L (22-29); Chloride 107 mmol/L (96-108); Cholesterol 234 mg/dL (<200); Estimated Glomerular Filt Rate > 60; Glucose Fasting 105 mg/dL (60-99); HDL Cholesterol 67 mg/dL (>40); LDL Cholesterol Calculated 132 mg/dL (<100); Potassium 3.8 mmol/L (3.3-5.1); Sodium 142 mmol/L (135-145); Total Protein 7.3 g/dL (6.5-8.0); Triglycerides 179 mg/dL (<150)
[2023-08-30 12:03] LABS: Free T4 (Free Thyroxine) 1.05 ng/dL (0.71-1.85); Thyroid Stimulating Hormone 6.22 uIU/mL (0.32-4.0); Vitamin D 25-OH Total 37.6 ng/mL (>30)
== END 2023-08-30 07:50 | disposition home or self-care (01) ==
LOC: HO.HMGCLDS 07:49
PROVIDERS: PCP Internal Medicine; Visit Provider Internal Medicine
DX: E21.3 Hyperparathyroidism, unspecified (principal); M81.0 Age-related osteoporosis without current pathological fracture; E03.9 Hypothyroidism, unspecified; E66.01 Morbid (severe) obesity due to excess calories; R73.01 Impaired fasting glucose; E78.5 Hyperlipidemia, unspecified
CPT/HCPCS: 36415; 80053; 80061; 82306; 83036; 84439; 84443

== ENCOUNTER 2023-10-27 11:45 | Outpatient (AMB) | payer OTHER, SELFPAY ==
[2023-10-27 11:49] VITALS: BP 112/60; PULSE 68; O2SAT 98
--- NOTE | 2023-10-27 11:49 | A.OFFPC_ITS ---
Vital Signs 10/27/23 11:49 Height 5 ft 3 in BP 112/60 Blood Pressure Location Lt brachial Position Sitting Pulse 68 Pulse Source Pulse Oximeter Pulse Oximetry (%) 98 Oxygen Delivery Method Room Air Intake Visit Reasons: hypothyroidism,hyperparathyroidism,(rescheduled) Intake Note: Pt is here today to f/u thyriod Allergies No Known Allergies [No Known Allergies*] Allergy (Verified 10/27/23 12:07) Medication List - Last Reconciled 10/27/23 by Yuli Garner MD calcium carbonate (Calcium) 600 mg PO BID 90 days cetirizine (Allergy Relief (cetirizine)) 10 mg PO DAILY PRN cholecalciferol (vitamin D3) 250 mcg PO 2XW 90 days levothyroxine 88 mcg PO QAM loperamide (Imodium A-D) 2 mg PO Q4H PRN mesalamine ER (Pentasa) 1,000 mg (2 x 500 mg) PO QID 90 days pantoprazole 40 mg PO DAILY polyethylene glycol 3350 (Gavilax) 17 grams PO DAILY Tobacco use date assessed: 10/27/23 Dental Screening Dental Screen Date: 10/27/23 Did you have a dental visit in the last 12 months?: No Was dental information given to patient?: No HPI hypothyroidism,hyperparathyroidism,(rescheduled) HPI Details 62-year-old lady here today for follow-u p on her hyperparathyroidism and hypothyroidism. She has been seen and evaluated by endocrinology, and her parathyroid hormone has normalized on calcium and vitamin-D supplementation, was advised to continue with present treatment. She also was found to be clinically and biochemically euthyroid on 88 mcg of levothyroxine for treatment of her hypothyroidism. She has been staying active, lifts weights, walks and runs for exercise. Latest bone density showed presence of beginning osteoporosis in lumbar spine but has no history of any fractures since achieving menopause . She had recent fasting labs done which showed marked elevations in her triglycerides and LDL cholesterol. [facility] Medical History Dyslipidemia Impaired fasting glucose History of COVID-19 GERD (gastroesophageal reflux disease) COVID-19 Morbid obesity Hyperparathyroidism Overactive bladder Upper back pain, chronic Large breasts Vitamin D deficiency Osteoporosis Postmenopause History of shingles Acquired hypothyroidism RLS (restless legs syndrome) Surgical History History of bowel resection History of esophagogastroduodenoscopy Hx of colonoscopy Hx of cholecystectomy Hx of tonsillectomy History of appendectomy H/O partial resection of colon Family History Father Lung cancer Mother Diabetes Hypertension Sister No problems noted. Mother Diabetes Paternal Grandmother Diabetes Father Lung cancer Paternal Uncle Lung cancer Social History Household Members: Family Housing: Apartment Are you a primary multi care technician to a significant other at home: No Do you presently have visiting nurse or other home services: No Alcohol intake: current Alcohol intake frequency: holidays/special occasions only Patient Tobacco Use Status: Never used Tobacco e-Cigarette/Vaping Use: Never Used Second Hand Smoke Exposure: No service: No Current occupational status: unemployed and disabled Current occupation: [employer] Cognitive needs: No Hearing needs: No Vision needs: Yes Female Reproductive History Menstrual Age of Menarche: 12 Questionnaire PHQ-9 Over the last 2 weeks, how often have you been bothered by any of the following problems? 1. Little interest or pleasure in doing things: not at all 2. Feeling down, depressed, or hopeless: not at all 3. Trouble falling or staying asleep, or sleeping too much: not at all 4. Feeling tired or having little energy: not at all 5. Poor appetite or overeating: not at all 6. Feeling bad about yourself - or that you are a failure or have let yourself or your family down: not at all 7. Trouble concentrating on things, such as reading the newspaper or watching television: not at all 8. Moving or speaking so slowly that other people could have noticed. Or the opposite - being so fidgety or restless that you have been moving around a lot more than usual: not at all 9. Thoughts that you would be better off or of hurting yourself in some way: not at all Total score: 0 Depression Screening Interpretation: Negative Depression Screening Done: Yes 88531 - PHQ-9 Billing: Yes Source: Developed by Drs. Brendon MuñozKasey Kurt Kroenke and colleagues, with an educational bakari from [email or web address]. Thrive Questionnaire Date Thrive assessed: 10/27/23 I am a: Patient What is your living situation today?: I have a steady place to live Within the past 12 months, did the food you bought not last and you didn't have the money to get more?: Never true Within the past 12 months, did you worry whether your food would run out before you got money to buy more?: Never true Do you have trouble paying for medicines?: No Do you have trouble getting transportation to medical appointments?: No Do you have trouble paying your heating and electricity bill?: No Do you have trouble taking care of your child, family member or friend?: No Do you have trouble with day-to-day activities such as bathing, preparing meals, shopping, managing finances, etc.?: No Are you currently unemployed and looking for a job?: No Are you interested in more education?: No THRIVE Score: 0 AUDIT C Alcohol Use Questionnaire (AUDIT-C) 1. How often do you have a drink containing alcohol?: Never Total Score: 0 NICOLE-7 AMB Questionnaire NICOLE-7 Date NICOLE - 7 assessed: 10/27/23 Feeling nervous, anxious, or on edge: 0 = Not at all Not being able to stop or control worryin = Not at all Worrying too much about different things: 0 = Not at all Trouble relaxin = Not at all Being so restless that it is hard to sit still: 0 = Not at all Becoming easily annoyed or irritable: 0 = Not at all Feeling afraid as if something awful might happen: 0 = Not at all Total NICOLE-7 score (0-4 normal; 5-9 mild; 10-14 moderate; 15-21 severe): 0 Source: Developed by Drs. Brendon Muñoz, Raul Huynh and colleagues, with an educational bakari from [email or web address]. NICOLE-7 Assessment Billing NICOLE-7 Assessment Tool: NICOLE-7 Assessment 16764 Review of Systems Const Denies fatigue and Denies headache(s) Eyes Denies change in vision ENT Denies change in voice, Denies dysphagia and Denies headache(s) Card Denies chest pain, Denies irregular heart rhythm and Denies dyspnea Resp Denies cough and Denies dyspnea GI Denies abdominal pain, Denies change in bowel habits and Denies dysphagia Musc Denies myalgias, Denies muscle cramps, Denies numbness and Denies tingling Skin/Breast Denies breast pain, Denies breast mass and Denies rash Neuro Denies Abnormal speech present, Denies headache(s), Denies numbness and Denies tingling Psych Denies anxiety and Denies depression Endo Denies cold intolerance, Denies fatigue and Denies heat intolerance Domenic/Lymph Denies easy bruising Physical exam (Primary Care) Vital Signs: Last Vital Signs Pulse 68 10/27/23 11:49 BP 112/60 10/27/23 11:49 Pulse Ox 98 10/27/23 11:49 Oxygen Delivery Method Room Air 10/27/23 11:49 Tobacco/Smoking Status: Tobacco use Status Tobacco use date assessed 10/27/23 10/27/23 11:57 Patient Tobacco Use Status Never used Tobacco 10/27/23 11:52 e-Cigarette/Vaping Use Never Used 10/27/23 11:52 PHQ-9: PHQ-9 Score PHQ-9: Total score 0 10/27/23 12:45 Depression Screening Interpretation: Negative Thrive Assessment: Date of Thrive Assessment Date Thrive assessed 10/27/23 10/27/23 12:45 Const General: comfortable and no acute distress Nutritional Appearance: obese Orientation/consciousness: patient oriented x3 HENMT Mouth: Normal oral and palatal mucosa present, tongue normal, oropharynx normal and moist mucous membranes Eyes General: appearance normal, both eyes and all related structures Neck Neck: Yes full ROM, Yes no lymphadenopathy and Yes supple Resp Effort & Inspection: normal respiratory effort and able to speak in complete sentences Auscultation: clear to auscultation bilaterally Cardio Other: S1-S2 present regular rate and rhythm GI Inspection: Yes obesity Palpation (GI): Soft to palpation, nontender, no guarding and no masses Auscultation: normal bowel sounds Other: Sees Dr. Arana Back/Spine/Pelvis Back: No back tenderness Skin General skin exam: no rashes or lesions noted Neuro General: patient oriented x3, gait normal, moves all extremities, no focal motor deficits and normal sensation to monofilament Speech: No Abnormal speech present Extrem General: Yes full ROM, Yes no joint enlargement, Yes no clubbing, cyanosis or edema, Yes no calf tenderness and Yes normal gait Psych Appearance: grossly normal and well kempt Mental Status: mental status grossly normal Speech and movement: Normal speech and movement present Affect: normal affect Attitude: cooperative Thought process: Normal thought process present Thought content: Normal thought content present Results Reviewed Results Reviewed: SPEC : [id number] JOSE: 08/30/23 STATUS: COMP REQ : [id number] RECD: 08/30/[address]: Yuli Garner MD COMP: 08/30/23 ENTERED: 08/30/[address]: ORDERED: CMP Fast, Lipid Panel, Vitamin D 25-OH, Free T4, TSH Test Result Flag Reference Sodium 142 135-145 mmol/L Potassium 3.8 3.3-5.1 mmol/L CL 107 96-108 mmol/L CO2 25 22-29 mmol/L Gap 14 12-20 BUN 12 9-16 mg/dL Creat 0.89 0.5-1.4 mg/dL EGFR > 60 NOTE: For -[place] individuals, multiply the result by 1.210. Chronic Kidney Disease: Estimated GFR < 60 mL/min/1.73m2 Severe Kidney Disease: Estimated GFR < 15 mL/min/1.73m2 FBS 105 H 60-99 mg/dL A fasting glucose from 100-125 mg/dl is considered impaired (pre-diabetes). CA 8.9 8.4-10.2 mg/dL Total Bili 0.3 0.0-1.0 mg/dL AST (GOT) 14 5-31 U/L ALT (GPT) 9 0-31 U/L Protein, Total 7.3 6.5-8.0 g/dL Alb 3.6 3.5-5.0 g/dL Triglyceride 179 H <150 mg/dL Desirable Triglyceride: less than 150 mg/dL Borderline High Triglyceride 150-199 mg/dL High Triglyceride: 200-499 mg/dL Very High Triglyceride: greater than or equal to 5OO mg/dL Cholesterol 234 H <200 mg/dL Desirable Cholesterol: less than 200 mg/dL Borderline High Cholesterol: 200-239 mg/dL High Cholesterol: greater than 239 mg/dL LDL Calculated 132 H <100 mg/dL Desirable LDL: less than 100 mg/dL Near Optimal/Above Optimal LDL: 110-129 mg/dL Borderline High LDL: 130-159 mg/dL High LDL: 160-189 mg/dL Very High LDL: greater than or equal to 190 mg/dL HDL 67 >40 mg/dL Desirable HDL: greater than 40 mg/dL Note: This HDL assay may give artificially low results in patients with liver disease. Alk Phos 60 39-117 U/L Vit D 25-OH Tot 37.6 >30 ng/mL Health Based Reference Values* < 20 ng/mL Deficient 20-30 ng/mL Insufficient > 30 ng/mL Sufficient *Hannah FLORES. N Engl J Med. 2007;357:266-280 Care must be taken in interpreting Vitamin D results from different laboratories and methodologies. Published data demonstrated that results from patients undergoing hemodialysis may show a negative bias when tested with various automated 25-OH vitamin D assays when compared to LC-MS/MS. When testing samples from patients whose predominant form of Vitamin D is Vitamin D2, such as patients receiving Vitamin D2 supplementation, results that are subtherapeutic should be confirmed with another method such as LC-MS/MS. Free T4 1.05 0.71-1.85 ng/dL TSH 3rd Gen. 6.22 H 0.32-4.0 uIU/mL Note: A sustained TSH level above 2.5 uIU/mL may warrant further investigation. TSH 3rd Generation ([facility]) Assessment and Plan Assessment & Plan (1) Dyslipidemia: Code(s): E78.5 - Hyperlipidemia, unspecified Plan: Reviewed recent fasting lipid profile with patient with elevated triglycerides and LDL cholesterol.. Continue with adherence to low-cholesterol diet and regular exercise, at least 30 minutes 3 to 4 times a week. Advised patient to make healthy food choices, eat more fruits, vegetables, whole grains, wild caught fish and low-fat dairy. Limit amount of meat and fried or fatty food products, as well as processed foods and fast foods. Follow-up scheduled with repeat fasting lipid panel in 3 months. (2) Impaired fasting glucose: Code(s): R73.01 - Impaired fasting glucose Plan: Latest fasting glucose was mildly elevated. Impaired glucose metabolism O2 at risk for developing diabetes mellitus type 2, as well as heart attack and stroke later on. Lifestyle changes at just weight loss, healthy eating habits, and regular exercise are important, and can prevent the progression to diabetes (3) Acquired hypothyroidism: Code(s): E03.9 - Hypothyroidism, unspecified Plan: Stable controlled on current dose of levothyroxine, will continue on 88 mcg daily. Repeat another TSH and free T4 in 3 months (4) Hyperparathyroidism: Code(s): E21.3 - Hyperparathyroidism, unspecified Plan: Continue with taking vitamin-D 3 supplements as well as calcium supplements, continue with regular weight-bearing exercise. Orders: Orders Basic Metabolic Panel Fasting 01/17/24 E03.9 - Hypothyroidism, unspecified, E21.3 - Hyperparathyroidism, unspecified, E78.5 - Hyperlipidemia, unspecified, R73.01 - Impaired fasting glucose Vitamin D 25-OH Total 01/17/24 E03.9 - Hypothyroidism, unspecified, E21.3 - Hyperparathyroidism, unspecified, E78.5 - Hyperlipidemia, unspecified, R73.01 - Impaired fasting glucose Lipid Panel 01/17/24 E03.9 - Hypothyroidism, unspecified, E21.3 - Hyperparathyroidism, unspecified, E78.5 - Hyperlipidemia, unspecified, R73.01 - Impaired fasting glucose Parathyroid Hormone Intact 01/17/24 E03.9 - Hypothyroidism, unspecified, E21.3 - Hyperparathyroidism, unspecified, E78.5 - Hyperlipidemia, unspecified, R73.01 - Impaired fasting glucose Coding Level of Care Code Est Pt Level 4 (35258) Diagnoses Dyslipidemia E78.5 Impaired fasting glucose R73.01 Acquired hypothyroidism E03.9 Hyperparathyroidism E21.3 Additional Codes NICOLE-7 Assessment Billing - NICOLE-7 Assessment Tool: NICOLE-7 Assessment 75696 ([id number])
== END 2023-10-27 12:35 | disposition home or self-care (01) ==
PROVIDERS: PCP Internal Medicine; Visit Provider Internal Medicine
DX: E78.5 Hyperlipidemia, unspecified (principal); R73.01 Impaired fasting glucose; E03.9 Hypothyroidism, unspecified; E21.3 Hyperparathyroidism, unspecified
CPT/HCPCS: 99214

== ENCOUNTER 2023-11-20 07:40 | Day surgery (SDC) | payer OTHER, SELFPAY ==
[2023-11-16 10:24] VITALS: BMI 34.4
--- NOTE | 2023-11-17 11:42 | HO.ANESPROP2 ---
Documented by User: Elizabeth Pereyra NP 11/17/23 11:43 HPI - Anesthesia Eval Consult details Narrative: 62yo F for Sigmoidoscopy Flexible PMFSH Active Problems Active Problems: All Active Problems (Updated 06/23/23 @ 02:46 by Yuli Garner MD) Chronic constipation (Acute) GERD (gastroesophageal reflux disease) (Acute) Crohn's colitis (Acute) Dyslipidemia (Acute) Impaired fasting glucose (Acute) Morbid obesity (Acute) Hyperparathyroidism (Acute) Overactive bladder (Acute) Upper back pain, chronic (Acute) Vitamin D deficiency (Acute) Osteoporosis (Acute) Acquired hypothyroidism (Acute) Past Medical History Medical History Dyslipidemia Impaired fasting glucose History of COVID-19 GERD (gastroesophageal reflux disease) COVID-19 Morbid obesity Hyperparathyroidism Overactive bladder Upper back pain, chronic Large breasts Vitamin D deficiency Osteoporosis Postmenopause History of shingles Acquired hypothyroidism RLS (restless legs syndrome) Family History Family History Father Lung cancer Mother Diabetes Hypertension Sister No problems noted. Mother Diabetes Paternal Grandmother Diabetes Father Lung cancer Paternal Uncle Lung cancer Family history of problems with anesthesia: No Surgical History Surgical History Hx of reduction mammoplasty History of bowel resection History of esophagogastroduodenoscopy Hx of colonoscopy Hx of cholecystectomy Hx of tonsillectomy History of appendectomy H/O partial resection of colon History of Problems with Anesthesia: No Social History Social History Household Members: Family Housing: Apartment Are you a primary primary care coordinator to a significant other at home: No Do you presently have visiting nurse or other home services: No Alcohol intake: current Alcohol intake frequency: holidays/special occasions only Patient Tobacco Use Status: Never used Tobacco e-Cigarette/Vaping Use: Never Used Second Hand Smoke Exposure: No Use of substances other than those prescribed or required for medical reasons: No Are you DNR?: No Advance Directives: No Advance Directives Information Provided: Yes service: No Current occupational status: unemployed and disabled Current occupation: [employer] Cognitive needs: No Hearing needs: No Vision needs: Yes Meds Allergies Allergy/AdvReac Type Severity Reaction Status Date / Time No Known Allergies Allergy Verified 10/27/23 12:07 [No Known Allergies*] Exam Height,Weight and Vital Signs: Height 5 ft 3 in Weight 87.997 kg Assessment and Plan Assessment Anesthesia Assessment: Chart Reviewed Final Anesthetic Review Family History of Problems with Anesthesia: No History of Problems with Anesthesia: No Documented by User: Kate Perez MD 11/20/23 09:21 [facility] Past Medical History Medical History Dyslipidemia Impaired fasting glucose History of COVID-19 GERD (gastroesophageal reflux disease) COVID-19 Morbid obesity Hyperparathyroidism Overactive bladder Upper back pain, chronic Large breasts Vitamin D deficiency Osteoporosis Postmenopause History of shingles Acquired hypothyroidism RLS (restless legs syndrome) Family History Family History Father Lung cancer Mother Diabetes Hypertension Sister No problems noted. Mother Diabetes Paternal Grandmother Diabetes Father Lung cancer Paternal Uncle Lung cancer Surgical History Surgical History Hx of reduction mammoplasty History of bowel resection History of esophagogastroduodenoscopy Hx of colonoscopy Hx of cholecystectomy Hx of tonsillectomy History of appendectomy H/O partial resection of colon Social History Social History Household Members: Family Housing: Apartment Are you a primary primary care coordinator to a significant other at home: No Do you presently have visiting nurse or other home services: No Alcohol intake: current Alcohol intake frequency: holidays/special occasions only Patient Tobacco Use Status: Never used Tobacco e-Cigarette/Vaping Use: Never Used Second Hand Smoke Exposure: No Use of substances other than those prescribed or required for medical reasons: No Are you DNR?: No Advance Directives: No Advance Directives Information Provided: Yes service: No Current occupational status: unemployed and disabled Current occupation: [employer] Cognitive needs: No Hearing needs: No Vision needs: Yes Meds Allergies Allergy/AdvReac Type Severity Reaction Status Date / Time No Known Allergies Allergy Verified 10/27/23 12:07 [No Known Allergies*] Exam Airway Mallampati Class: II TM Dist: >3cm Neck ROM: Full Denture: Upper and Lower Heart: rrr Lungs: cta Assessment and Plan Assessment Anesthesia Assessment: Anesthesia Plan Discussed Final Anesthetic Review NPO: Yes ASA Class: II Final Preanesthetic Review: No Changes in Pt Med Stat, Meds/Allgs Chart Reviewed and Consent Obtained/Reviewed Patient Risk: Low Procedure Risk: Low Anesthetic Plan Anesthetic Plan: MAC: Disposition: Standard PACU
[2023-11-20 08:06] VITALS: BMI 32.4
[2023-11-20 08:16] VITALS: BP 140/66; PULSE 73; RESP 16; TEMP 36; O2SAT 98
[2023-11-20] MEDS: Lactated Ringers 1,000 ML 100 ML IVCONT (08:40)
--- NOTE | 2023-11-20 09:20 | MHC.SHP ---
Pre-Procedural Eval Section A - 24 Hr Update-Section A only Date of Service: 11/20/23 The patient is an INPATIENT: No The patient has been examined within 24 hours of the surgical procedure. The History & Physical has been completed within 30 days and I have reviewed it.: No Section B - Complete if H&P > 30 days Chief Complaint: Crohn's disease of large intestine with unspecifie Details of Present Illness: Colon cancer screening, crohn's disease Relevant Family History (Specify if Yes): No Relevant Social History: None Present Medications: see Short Stay Collaborative assessment Medical History: Significant History (Acquired hypothyroidism Breast cancer screening other than mammogram Crohn's colitis GERD (gastroesophageal reflux disease) History of shingles Hx of drainage of abscess Hypothyroidism Large breasts Osteoporosis Overactive bladder Postmenopause RLS (restless legs syndrome) Upper back pain, chronic V) History of Previous Operations: Relevant previous surgery/procedure and date(s) (H/O partial resection of colon History of appendectomy History of esophagogastroduodenoscopy Hx of cholecystectomy Hx of colonoscopy Hx of tonsillectomy) Allergies: Allergies Allergy/AdvReac Type Severity Reaction Status Date / Time No Known Allergies Allergy Verified 10/27/23 12:07 [No Known Allergies*] Review of Systems Sugical H&P ROS: Negative: Constitution, Cardiovascular, Respiratory and Gastrointestinal Exam Surgical H&P Exam: Normal: Heart, Normal: Lungs, Normal: Extremities and Normal: Abdomen Plan Diagnosis/Plan: Change (proceed with flexible sigmoidoscopy) I have reviewed the history and physical and performed a pertinent physical examination on my patient. No changes have occurred unless specified. Time Spent With Patient Time: Total time managing care of this patient today ____ minutes.
--- NOTE | 2023-11-20 09:20 | W.PM.OPN ---
Operative Note Operative Note Date of Service: 11/20/23 Narrative: FLEXIBLE SIGMOIDOSCOPY TILL ANASTOMOSIS WITH BIOPSIES Pre-op diagnosis: Colon cancer screening, follow-up of Crohn's disease Post-op diagnosis: Colon polyp, diverticulosis, hemorrhoids Endoscopist: Chelsie Navas MD Anesthesia: MAC Consent: Indications for the procedure and potential complications of bleeding, perforation, reaction to medications and missed diagnosis were discussed with the patient and informed consent was obtained. Instrument: Olympus GIF H 190 mid size upper endoscope Monitoring: Vital signs and clinical assessment, intermittent blood pressure monitoring, continuous EKG monitoring, Pulse oximetry and Carbon Dioxide monitoring were done throughout the procedure. Colon withdrawl time was 10 minutes. Procedure: The patient was placed in the left lateral decubitis position and pre-procedure medications were administered. After a digital rectal examination of the ano-rectum, the video colonoscope was inserted into the rectum and advanced through the colon to the ileo-colic anastomosis at 30 cms. Distal small bowel was examined.? The colonoscope was slowly withdrawn in a retrograde panoramic fashion and the colon mucosa was carefully examined including a retroflexed view of the rectum. Findings and interventions are described below. Procedure Difficulty: Without difficulty Findings: Terminal Ileum: Distal 10 cms was examined - normal mucosa - random biopsies were obtained. Multiple 1-2 cms ulcers at the ileo-colic anastomosis - multiple biopsies were obtained.? Sigmoid Colon:? Decreased vascularity due to inactive Crohn's disease in the colon - four quadrant biopsies were obtained. Rectum:? Normal - four quadrant biopsies were obtained Ano-rectum:? Hypertrophied anal papillae Colon preparation: Good after some irrigation Impression and Post Procedure Diagnosis: Flexible sigmoidoscopy Findings: Terminal Ileum: Distal 10 cms was examined - normal mucosa - random biopsies were obtained. Multiple 1-2 cms ulcers at the ileo-colic anastomosis - multiple biopsies were obtained.? Sigmoid Colon:? Decreased vascularity due to inactive Crohn's disease in the colon - four quadrant biopsies were obtained. No polyps were detected. Plan: Await pathology results Patient has a FU appt on 12/07/23 in the GI [facility] with Chelsie Navas M.D.. Repeat flexible sigmoidoscopy interval based on path results - in 2 - 3 years if no dysplasia on colon biopsies. Above findings were reviewed with the patient. BIOPSIES SHOWED: A. Terminal ileum, biopsy: Terminal ileal mucosa within normal limits. B. Anastomotic ulcer, biopsy: Ileocolonic mucosa with patchy active inflammation and fragment of ulcer material. C. Colon, sigmoid, biopsy: Colonic mucosa within normal limits. D. Rectum, biopsy: Rectal mucosa within normal limits. Comment: No dysplasia or granulomata are seen
[2023-11-20 09:50] VITALS: BP 86/34; PULSE 64; RESP 16; TEMP 36.4; O2SAT 97
[2023-11-20 10:05] VITALS: BP 103/54; PULSE 65; RESP 16; O2SAT 97
[2023-11-20 10:18] VITALS: BP 120/60; PULSE 58; RESP 16; TEMP 36.8; O2SAT 97
== END 2023-11-20 10:39 | disposition home or self-care (01) ==
PROVIDERS: PCP Internal Medicine; Visit Provider Internal Medicine Gastroenterology
PROC: 0DJD8ZZ Inspection of Lower Intestinal Tract, Via Natural or Artificial Opening Endoscopic (ICD-10-PCS; CPT 45330; principal; 2023-11-20 09:20)
DX: Z12.11 Encounter for screening for malignant neoplasm of colon (principal); K28.9 Gastrojejunal ulcer, unspecified as acute or chronic, without hemorrhage or perforation; K57.30 Diverticulosis of large intestine without perforation or abscess without bleeding; K64.8 Other hemorrhoids; K62.4 Stenosis of anus and rectum; D50.9 Iron deficiency anemia, unspecified; Z90.49 Acquired absence of other specified parts of digestive tract
CPT/HCPCS: 45380; 88305; J2704

== ENCOUNTER → 2023-11-20 07:40 | Outpatient (BNV) | payer OTHER, SELFPAY | PROVIDERS: PCP Internal Medicine; Visit Provider Internal Medicine Gastroenterology | DX: Z12.11 Encounter for screening for malignant neoplasm of colon (principal); K63.5 Polyp of colon; K57.90 Diverticulosis of intestine, part unspecified, without perforation or abscess without bleeding; K64.8 Other hemorrhoids | CPT/HCPCS: 45380 ==

== ENCOUNTER 2023-12-07 10:00 | Outpatient (AMB) | payer OTHER, SELFPAY ==
--- NOTE | 2023-12-07 10:03 | MHC.OFFVIS ---
Intake Vital Signs 12/07/23 10:05 Height 5 ft 3 in Weight 182 lb BMI 32.2 BP 119/75 Blood Pressure Location Lt brachial Position Sitting Pulse 74 Intake Visit Reasons: s/p sigmoid Intake Note: Patient follow Sigmoid results. Patient denies any GI issues. Training Director Required: No Accompanied by: Self / Same As Patient Allergies No Known Allergies [No Known Allergies*] Allergy (Verified 12/07/23 10:04) Medication List - Last Reconciled 12/07/23 by Chelsie Navas MD calcium carbonate (Calcium) 600 mg PO BID 90 days cetirizine (Allergy Relief (cetirizine)) 10 mg PO DAILY PRN cholecalciferol (vitamin D3) 250 mcg PO 2XW 90 days levothyroxine 88 mcg PO QAM loperamide (Imodium A-D) 2 mg PO Q4H PRN mesalamine ER (Pentasa) 1,000 mg (2 x 500 mg) PO QID pantoprazole 40 mg PO DAILY HPI s/p sigmoid HPI Details GI CLINIC VISIT FOR THIS 62-YEAR-OLD FEMALE WITH GERD, OSTEOPOROSIS, HYPOTHYROIDISM, HYPERPARATHYROIDISM HERE FOR FOLLOW-UP OF CROHN'S DISEASE. Patient has been followed by Dr. Jordan since 2012. Pt was hospitalized from 05/28 to 06/03/22 at [facility] [place] COVID infection associated with diarrhea She was treated with Flagyl and Levqaquin for 7 days. IMAGING STUDIES:? 05/28/[address] SCAN SHOWED: Suspect partial colectomy. Fluid throughout mildly dilated large and small bowel as well as within the rectal vault. Findings suggest hypersecretion and mild ileus. ? Approximately 1 cm L4 sclerotic lesion, not otherwise characterized. No other sclerotic or lytic bony lesion identified. In the absence of known or suspected malignancy elsewhere (for example, breast cancer), the finding probably represents a bone island. Recommend clinical correlation. 05/[address] SCAN SHOWED:Status post subtotal colectomy.? Multiple dilated loops of small and large bowel with slight increased prominence and proximal loops of small bowel.? There was several air-fluid levels. ? ENDOSCOPIC STUDIES: 11/20/23 FLEX SIG SHOWED: Terminal Ileum: Distal 10 cms was examined - normal mucosa - random biopsies were obtained. Multiple 1-2 cms ulcers at the ileo-colic anastomosis - multiple biopsies were obtained.? Sigmoid Colon:? Decreased vascularity due to inactive Crohn's disease in the colon - four quadrant biopsies were obtained. No polyps were detected. Plan: Repeat flexible sigmoidoscopy interval based on path results - in 2 - 3 years if no dysplasia on colon biopsies. BIOPSIES SHOWED: A. Terminal ileum, biopsy: Terminal ileal mucosa within normal limits. B. Anastomotic ulcer, biopsy: Ileocolonic mucosa with patchy active inflammation and fragment of ulcer material. C. Colon, sigmoid, biopsy: Colonic mucosa within normal limits. D. Rectum, biopsy: Rectal mucosa within normal limits. Comment: No dysplasia or granulomata are seen 07/02/21 SIGMOIDOSCOPY SHOWED: Focal 2-4 cms area of ulcerations just proximal to the ileo-colic anastomosis - multiple biopsies were obtained.? Normal small bowel mucosa proximally. No polyps were detected. Decreased vascularity due to inactive Crohn's disease in the colon - surveillance biopsies were obtained. Plan:? Repeat Colonoscopy interval based on path results - in 2 years if no dysplasia on colon biopsies. BIOPSIES SHOWED: A.? Terminal ileum, biopsy:? Ileocolonic mucosa with mild crypt disarray; otherwise within normal limits. B.? Colon, 25 cm, biopsy:? Colonic mucosa within normal limits. C.? Colon, 15 cm, biopsy:? Colonic mucosa within normal limits. D.? Colon, 5 cm, biopsy:? Colonic mucosa within normal limits. COMMENT:? No dysplasia or granulomata are seen. 05/2018 FLEXIBLE SIGMOIDOSCOPY SHOWED:No polyps seen. Dilated small bowel with scattered 1 -1.5 cms ulcers througout - biopsies were obtained for histology and viral cultures. Significant amounts of stool not seen in the small intestine. Ileo-colic anastomosis at 35 cms. Circumferential ulcers with cobblestone appearance - multiple biopsies were obtained. Colonoscope passed easily through the anastomosis and no obstruction noted. Endoscopic appearance suggestive of Crohn's disease - other possibilities include CMV infection or ischemic ulcers related to past surgery/ small bowel dilation. Plan: Await pathology results. Resume a clear liquid diet as tolerated until biopsy results are available. Repeat Colonoscopy interval based on path results. BIOPSIES SHOWED: A.? SMALL BOWEL ULCER, BIOPSIES:? FRAGMENTS OF SMALL INTESTINAL MUCOSA WITH ACTIVE ILEITIS AND ULCERATION WITH RARE CYTOMEGALOVIRUS INCLUSIONS (SEE NOTE). B.? COLON, ULCER, BIOPSIES:? FRAGMENTS OF SMALL INTESTINAL AND COLONIC MUCOSA AND GRANULATION TISSUE WITH MILD CHRONIC ACTIVE COLITIS (SEE NOTE). C.? RECTUM, BIOPSIES:? FRAGMENTS OF HYPERPLASTIC COLONIC MUCOSA. NOTE:? THERE IS CRYPT ARCHITECTURAL DISTORTION, GLANDULAR BUDDING AND SUBMUCOSAL MIXED INFLAMMATORY INFILTRATES.? THESE FINDINGS MAY BE DUE TO THE CMV INFECTION, BUT THERE MAY BE UNDERLYING CROHN'S DISEASE OR ULCERATIVE COLITIS.? RECOMMEND TREATING CMV INFECTION AND FOLLOW-UP ENDOSCOPY WITH BIOPSIES TO RULE OUT INFLAMMATORY BOWL DISEASE. TODAY'S VISIT: Flex sig and biopsy results reviewed Sometimes I get flared up Has been taking more salads Can have pain and feels bloated. Tries to go and stool feels stuck at the end and unable to expell Takes Miralax prn if she is bloated and stool gets stuck - once every two weeks. She was advised to take Miralax once a week. PAST VISITS: Scheduled for breast reduction on 07/20/23 and unable to lie on her side for 8 weeks. She would like to reschedule to spring. Sometimes I cant go and sometimes it hurts to have a BM Noted blood in the stools last few days since she was pushing too hard and straining to go Taking Pentasa 4 times a day. Has a powder at home and has not been using it. Had an episode of nausea, vomiting and diarrhea a few weeks ago which lasted 24 hrs. She is doing well now. Had dark stools after she has spinach and broccoli. Lab and stool tests were reviewed - CRP slightly elevated. Planning to travel to [place] with her niece in January Going to [place] in March. Fecal calprotectin were normal. Bloating has resolved. Going normal with 1-3 times a day with passage of normal stools Cold sweats have resolved - thinks it was related to COVID infection. Had her 2nd Booster for COVID a few months Feels she has an infection. Intermittent cold sweats. Constantly going to the bathroom to urinate. Diarrhea is not as bad as while she was in the hospital. BMs are dark (blackish) Has been having a few loose pudding like BMs per day. Concerned about recurrent CMV infection. Upset since her sister with PMR in Nov 07, 2021. An aunt and sister as well Has to go to [place] in January to help her aunt. Going to the bathroom regularly. Once in a great while, she can see some blood (a little dot) Can have some abdominal pain - when she was very stressed and not eating right. Has been very stressed. Has been doing well since she had the subtotal colectomy without recurrent SBO. Has been taking the Pentasa 1 gram 4 times a day for the past several yrs. Continues to have heartburn - comes on all of a sudden - mostly at night. Takes Senna if she does not have a BM for a day and is able to go the next morning. Patient denies major cardiac or pulmonary problems, loud snoring or sleep apnea. Denies problems with anesthesia in the past. Denies being on chronic anticoagulation. Patient denies known family history of other GI malignancies. Sister had cancer in one of the polyps and had surgery and is doing fine now. PAST GI HISTORY BY REVIEW OF MEDICAL RECORDS: IBD SUMMARY YEAR OF DIAGNOSIS:? 2000 DISEASE EXTENT:Colon and small intestines LAST COLONOSCOPY FINDINGS:06/2021 as noted above NEXT COLON DUE: 2022 EXTRAINTESTINAL MANIFESTATIONS: Denies skin rash, joint pains or eye pain GI SURGERY:? Colon resection 2000 - subtotal colectomy. CURRENT THERAPY:? Pentasa 1 gram 4 times daily, Senna for constipation VACCINATIONS: Flu shot:? Gets Flu shot every year. Hep A/B serology /vaccination:?unsure [facility], [facility] Medical History (Updated 11/29/23 @ 10:49 by Tangela Wing) Dyslipidemia Impaired fasting glucose History of COVID-19 GERD (gastroesophageal reflux disease) COVID-19 Morbid obesity Hyperparathyroidism Overactive bladder Upper back pain, chronic Large breasts Vitamin D deficiency Osteoporosis Postmenopause History of shingles Acquired hypothyroidism RLS (restless legs syndrome) Surgical History Hx of sigmoidoscopy Hx of reduction mammoplasty History of bowel resection History of esophagogastroduodenoscopy Hx of colonoscopy Hx of cholecystectomy Hx of tonsillectomy History of appendectomy H/O partial resection of colon Family History Father Lung cancer Mother Diabetes Hypertension Sister No problems noted. Mother Diabetes Paternal Grandmother Diabetes Father Lung cancer Paternal Uncle Lung cancer Social History Household Members: Family Housing: Apartment Are you a primary cattle care worker to a significant other at home: No Do you presently have visiting nurse or other home services: No Alcohol intake: current Alcohol intake frequency: holidays/special occasions only Patient Tobacco Use Status: Never used Tobacco e-Cigarette/Vaping Use: Never Used Second Hand Smoke Exposure: No service: No Current occupational status: unemployed and disabled Current occupation: [employer] Cognitive needs: No Hearing needs: No Vision needs: Yes Female Reproductive History Menstrual Age of Menarche: 12 Review of Systems Const All systems reviewed & are unremarkable except as noted in HPI and below Physical Exam Vital Signs: Last Vital Signs Pulse 74 12/07/23 10:05 BP 119/75 12/07/23 10:05 BMI result Body Mass Index 32.2 Const General: healthy appearing and no acute distress Nutritional Appearance: obese and Edematous Orientation/consciousness: patient oriented x3 Limitations: no limitations HEENT Head: Yes normal to inspection Ears: hearing grossly normal bilaterally Eyes Sclerae: sclerae normal Pupils: Equal, round and reactive pupils present Neck Neck: Yes normal visual inspection Chest Chest palpation & inspection: normal inspection of the chest Resp Effort & Inspection: normal respiratory effort Auscultation: clear to auscultation bilaterally Cardio Palpation: normal PMI Rate: regular rate Rhythm: regular rhythm Heart sounds: S1 normal heart sound present, S2 normal heart sound present and no murmurs GI Inspection: Yes scar Palpation (GI): Soft to palpation, nontender and No hepatosplenomegaly present Auscultation: normal bowel sounds Rectal Exam - Female: deferred Skin General skin exam: no rashes or lesions noted Neuro General: patient oriented x3, gait normal and moves all extremities Cranial nerves: Yes Equal, round and reactive pupils present Psych Appearance: grossly normal Mental Status: mental status grossly normal Assessment & Plan Assessment & Plan (1) GERD (gastroesophageal reflux disease): Code(s): K21.9 - Gastro-esophageal reflux disease without esophagitis Qualifiers: Esophagitis presence: without esophagitis Qualified Code(s): K21.9 - Gastro-esophageal reflux disease without esophagitis (2) Chronic constipation: Code(s): K59.09 - Other constipation (3) Crohn's colitis: Code(s): K50.10 - Crohn's disease of large intestine without complications Qualifiers: Digestive disease complication type: unspecified complication Qualified Code(s): K50.119 - Crohn's disease of large intestine with unspecified complications (4) Vitamin D deficiency: Code(s): E55.9 - Vitamin D deficiency, unspecified Plan 62 YF with Crohn's disease involving the small bowel and colon and is status post subtotal colectomy. Patient has been followed by Dr. Jordan since 2012. 05/2018 Flex Sig showed?Dilated small bowel with scattered 1 -1.5 cms ulcers througout - biopsies were positive for CMV inclusion and patient was treated for CMV. Ileo-colic anastomosis at 35 cms. Circumferential ulcers with cobblestone appearance - multiple biopsies were obtained 06/2021 Flexible Sig was performed and showed: Focal 2-4 cms area of ulcerations just proximal to the ileo-colic anastomosis - multiple biopsies were obtained.? Normal small bowel mucosa proximally. No polyps were detected. Decreased vascularity due to inactive Crohn's disease in the colon - surveillance biopsies were obtained. Plan:? Repeat Colonoscopy interval based on path results - in 2 years if no dysplasia on colon biopsies (due 06/2023) Patient's symptoms are well controlled with Pentasa 1 g 4 times daily. 07/2021 Pt was started on azathioprine due to focal area of ulcerations in the TI proximal to the anastomosis. Pt was hospitalized from 05/28 to 06/03/22 at [facility] [place] COVID infection associated with diarrhea She was treated with Flagyl and Levqaquin for 7 days. Pt had postprandial abd discomfort with bloating after her hospitalization which has resolved. Pt was advised to go on a FODMAP diet for 6 weeks CRP slightly elevated at 0.61 and stool calprotectin was normal. 06/29/23 Scheduled for breast reduction on 07/20/23 and unable to lie on her side for 8 weeks. Meredith would like to reschedule her colonoscopy from 08/28/23 to spring. 12/07/23 Sometimes I get flared up Can have pain and feels bloated. Tries to go and stool feels stuck at the end and unable to expell Takes Miralax prn if she is bloated and stool gets stuck - once every two weeks. She was advised to take Miralax once a week. Repeat Flex Sig in 2-3 years for CD surveillance FU in 6 month Orders: Orders C Reactive Protein 01/17/24 K50.10 - Crohn's disease of large intestine without complications Creatinine 01/17/24 K50.10 - Crohn's disease of large intestine without complications Complete Blood Count no Diff 01/17/24 K50.10 - Crohn's disease of large intestine without complications Coding Level of Care Code Est Pt Level 4 ([id number]) Diagnoses Gastroesophageal reflux disease without esophagitis K21.9 Esophagitis presence: without esophagitis Chronic constipation K59.09 Crohn's disease of colon with complication K50.119 Digestive disease complication type: unspecified complication Vitamin D deficiency E55.9 Time Spent (min) 22
[2023-12-07 10:05] VITALS: BP 119/75; PULSE 74; BMI 32.2
== END 2023-12-07 10:38 | disposition home or self-care (01) ==
PROVIDERS: PCP Internal Medicine; Visit Provider Internal Medicine Gastroenterology
DX: K21.9 Gastro-esophageal reflux disease without esophagitis (principal); K59.09 Other constipation; K50.119 Crohn's disease of large intestine with unspecified complications; E55.9 Vitamin D deficiency, unspecified
CPT/HCPCS: 99214

== ENCOUNTER → 2023-12-07 10:00 | Outpatient (BNVA) | payer OTHER, SELFPAY | PROVIDERS: PCP Internal Medicine; Visit Provider Internal Medicine Gastroenterology | DX: K21.9 Gastro-esophageal reflux disease without esophagitis (principal); K59.09 Other constipation; K50.119 Crohn's disease of large intestine with unspecified complications; E55.9 Vitamin D deficiency, unspecified; Z79.899 Other long term (current) drug therapy | CPT/HCPCS: 99212 ==

== ENCOUNTER 2024-01-18 10:24 | Inpatient (IN) | payer OTHER, SELFPAY ==
[2024-01-18] VITALS (7 sets, daily range): BP systolic 105–150; BP diastolic 46–82; PULSE 62–81; RESP 14–20; TEMP 36.3–36.7; O2SAT 88–99; BMI 29.1; BMI 31.2
--- NOTE | ~2024-01-18 | CT_ITS ---
EXAMINATION: CT ABDOMEN AND PELVIS WITH CONTRAST CLINICAL INFORMATION: Lower abdominal pain. Diarrhea. History of Crohn's disease. COMPARISON: 05/28/2022 and 07/09/2021 TECHNIQUE: Multidetector volumetric images were obtained from the superior aspect of the liver through the pubic symphysis following administration 85 mL of Omnipaque 350 intravenous contrast. Sagittal and coronal reformatted images were obtained on the technologist's workstation. Oral contrast: No This CT examination was performed using dose optimization techniques as appropriate, variously including the following: *Automated exposure control *Adjustment of mA and/or kV according to patient size (this includes techniques or standardized protocols for targeted exams where dose is matched to indication/reason for exam; i.e. extremities or head) *Use of iterative reconstruction technique DLP: 611 mGy-cm FINDINGS: LUNG BASES: Peribronchial groundglass and tree-in-bud opacities in the right lower lobe. Small hiatal hernia. LIVER, GALLBLADDER, AND BILIARY TREE: The liver is normal in size and contour. No suspicious hepatic lesion or biliary ductal dilatation is present. The gallbladder is surgically absent. PANCREAS: Unremarkable. SPLEEN: Unremarkable. ADRENAL GLANDS: Unremarkable. KIDNEYS AND URETERS: Malrotated ptotic right kidney. The kidneys enhance symmetrically. No hydronephrosis or perinephric fluid collection. BLADDER: Decompressed. GASTROINTESTINAL TRACT: Colonic interposition. There are dilated loops of small bowel measuring up to 5 cm. There are discontinuous segments of bowel wall thickening involving the mid small bowel and distal small bowel. Status post partial colectomy. There is fluid within the remaining colon. ABDOMINAL WALL: No significant hernia is appreciated. LYMPH NODES: Subcentimeter mesenteric lymph nodes. VASCULAR: Normal caliber abdominal aorta. PELVIC VISCERA: Uterus is surgically absent. OSSEOUS STRUCTURES: No destructive bone lesions. CT/CT abdomen pelvis w IV con IMPRESSION: Dilated loops of small bowel measuring up to 5 cm. This may represent partial small bowel obstruction related to adhesions. There are discontinuous segments of small bowel wall thickening with mesenteric hyperemia. There is fluid within the remaining colon as well as within the rectum. This constellation of findings likely reflects history of known Crohn's disease.
--- NOTE | ~2024-01-18 | XR_ITS ---
EXAMINATION: XR CHEST CLINICAL INFORMATION: Cough. COMPARISON: 05/28/2022 TECHNIQUE: Frontal view of the chest was obtained. FINDINGS: The lungs are moderately expanded. Airspace disease in the right lower lobe. No pleural effusion. Cardiac silhouette is within normal limits. Surgical clips in the left upper mediastinum. XR/XR chest 1V IMPRESSION: Right lower lobe pneumonia. Follow-up until resolution is advised.
--- NOTE | ~2024-01-18 | XR_ITS ---
EXAMINATION: XR ABDOMEN KUB CLINICAL INDICATION: Follow-up small bowel obstruction. COMPARISON: CT abdomen/pelvis 01/18/2024 TECHNIQUE: 3 views of the abdomen. FINDINGS: Imaged lung bases are clear. There is persistent gaseous distention of bowel loops as demonstrated on the perforator operator image of the CT. There may be slight interval improvement in degree of small bowel dilatation relative to the comparison study. XR/XR KUB IMPRESSION: Persistent gaseous distention of small and large bowel loops. Perhaps slight interval improvement in degree of small bowel dilatation.
--- NOTE | 2024-01-18 10:44 | ECG_ITS ---
Test Reason : WEAKNESS Blood Pressure : / mmHG Vent. Rate : 073 BPM Atrial Rate : 073 BPM P-R Int : 166 ms QRS Dur : 088 ms QT Int : 374 ms P-R-T Axes : 040 014 033 degrees QTc Int : 412 ms Poor data quality, interpretation may be adversely affected Normal sinus rhythm Nonspecific T wave abnormality Abnormal ECG When compared with ECG of 13-JUN-2023 07:45, No significant changes seen Referred By: Amy Odell Electronically Signed By:GM BLOCK
--- NOTE | 2024-01-18 10:56 | ED_ITS ---
HPI - Nausea/Vomiting/Diarrhea General Chief complaint: Abdominal Pain Stated complaint: DIARRHEA,HX CHRON'S, WEAK Time Seen by Provider: 01/18/24 10:43 Source: patient and old records reviewed Mode of arrival: EMS Limitations: no limitations History of Present Illness HPI Narrative: 63 yo female with PMH of Crohns disease s/p subtotal colectomy on asa follows with Dr. Navas, GERD, HLD, hypothyroidism, hyperparathyroidism, osteoporosis here with c/o starting feel like she had a sinus issues on Monday. Then yesterday started to feel weak with diarrhea, nausea, and abdominal pain. She was so weak she fell out of bed and hit R scapula but no sig pain and no headstrike/neck pain or LOC. She was on the ground for 5 minutes. She denies sick contacts, travel, abx use. She is not on blood thinners. MD elicited complaint: nausea, vomiting, diarrhea and abdominal pain Pertinent past history: other (Crohns) Onset (ago): day(s) (worsening since Monday ) Description of vomiting: watery Description of diarrhea: watery Associated nausea: Yes Associated abdominal pain: Yes Location of pain: diffuse Radiation: diffuse Pain consistency: intermittent Severity: mild Quality: cramping Exacerbating factors: eating Relieving factors: none Context: history of abdominal surgery and other (Crohns) Associated symptoms: loss of appetite, malaise, nausea/vomiting and weakness Treatment prior to arrival: other Related Data Previous Rx's ?Medication ?Instructions ?Recorded loperamide 2 mg tablet (Imodium 2 mg PO Q4H PRN diarrhea #60 tabs 06/03/22 A-D) calcium carbonate (Calcium 600) 600 mg PO BID 90 days #180 tabs 05/08/23 cholecalciferol (vitamin D3) 250 250 mcg PO 2XW 90 days #26 caps 05/09/23 mcg (10,000 unit) capsule cetirizine 10 mg tablet (Allergy 10 mg PO DAILY PRN allergy 07/11/23 Relief (cetirizine)) symptoms #90 tabs levothyroxine 88 mcg tablet 88 mcg PO QAM #90 tabs 07/14/23 pantoprazole 40 mg tablet,delayed 40 mg PO DAILY #90 tabs 08/07/23 release mesalamine 500 mg capsule,extended 1,000 mg (2 x 500 mg) PO QID #720 11/14/23 release (Pentasa) caps Allergies Allergy/AdvReac Type Severity Reaction Status Date / Time No Known Allergies Allergy Verified 01/18/24 10:37 [No Known Allergies*] Review of Systems 2 Review of Systems: Constitutional : No Weight loss, no Fever, pos Chills ENT/Mouth : No sore throat, No Rhinorrhea, pos sinus congestion Eyes: No Swelling, No Redness Cardiovascular : No Chest Pain, No SOB, NoEdema Respiratory : No Cough, No Sputum, No Wheezing Gastrointestinal : Positive Nausea, no Vomiting, positive Diarrhea, positive abdominal Pain, No Hematochezia, No Melena Genitourinary : No Dysuria, No Urinary Frequency, No Hematuria, No Urgency Musculoskeletal : No joint pain, No Myalgias, No Joint Swelling Skin : No Skin Lesions, No rash Neuro : No Weakness, No Numbness, No Dizziness, No Headache Psych : No Anxiety/Panic, No Depression All other systems reviewed and are negative. Gastrointestinal: Gastrointestinal: Reports nausea PMFSH Past Medical History Attestation statement: The following information was validated with the patient. Source: old records reviewed Medical History Dyslipidemia Impaired fasting glucose History of COVID-19 GERD (gastroesophageal reflux disease) COVID-19 Morbid obesity Hyperparathyroidism Overactive bladder Upper back pain, chronic Large breasts Vitamin D deficiency Osteoporosis Postmenopause History of shingles Acquired hypothyroidism RLS (restless legs syndrome) Surgical History Hx of sigmoidoscopy Hx of reduction mammoplasty History of bowel resection History of esophagogastroduodenoscopy Hx of colonoscopy Hx of cholecystectomy Hx of tonsillectomy History of appendectomy H/O partial resection of colon Family History Family History Father Lung cancer Mother Diabetes Hypertension Sister No problems noted. Mother Diabetes Paternal Grandmother Diabetes Father Lung cancer Paternal Uncle Lung cancer Social History Social History Household Members: Family Housing: Apartment Are you a primary inspector health care facilities to a significant other at home: No Do you presently have visiting nurse or other home services: No Alcohol intake: current Alcohol intake frequency: holidays/special occasions only Patient Tobacco Use Status: Never used Tobacco Smoked in Last 30 Days: No e-Cigarette/Vaping Use: Never Used Second Hand Smoke Exposure: No Use of substances other than those prescribed or required for medical reasons: No Advance Directives: Yes Advance Directives on File: Yes Advance Directives Date on File: 05/31/22 Do you have a plan to hurt others: No Plan Patient : No service: No Current occupational status: unemployed and disabled Current occupation: [employer] Cognitive needs: No Hearing needs: No Vision needs: Yes Physical Exam 2 Vital Signs: Vital Signs: Last Vital Signs Temp 98.1 F 01/18/24 12:43 Pulse 65 01/18/24 12:43 Resp 14 01/18/24 12:43 BP 150/71 H 01/18/24 12:43 Pulse Ox 97 01/18/24 12:43 O2 Del Method Room Air 01/18/24 12:43 BMI result Body Mass Index 29.1 Appearance: Alert. Oriented X3. No acute distress. Eyes: Pupils equal, round and reactive to light. ENT: Pharynx mildly dry MM Neck: Normal inspection. Neck supple. CVS: Normal heart rate and rhythm. Pulses normal. Respiratory: No respiratory distress. Breath sounds normal. Abdomen: Soft and mild L sided ttp no rebound or guarding Skin: Skin warm and dry. Normal skin color. Normal skin turgor. Extremities: No lower extremity edema. Neuro: Oriented X 3. No motor deficit. No sensory deficit. Course Course Course Narrative: + CXR at this time possible bacterial infection suspected cultures lactic acid IV ceftriaxone ordered Reevaluation(s) Reevaluation #1: pain improved Medications Administered Discontinued Medications Generic Name Dose Route Start Last Admin Trade Name Doroteoq PRN Reason Stop Dose Admin Hydromorphone HCl 0.5 mg 01/18/24 14:04 01/18/24 14:24 Hydromorphone Hcl 0.5 Mg/0.5 Ml Syringe IVPUSH 01/18/24 14:05 0.5 mg ONCE ONE Administration Protocol Sodium Chloride 1,000 mls @ 999 mls/hr 01/18/24 10:43 01/18/24 13:29 Ns IV 01/18/24 11:43 Infused .Q1H1M ONE Infusion Iohexol 100 ml 01/18/24 13:24 01/18/24 13:24 Iohexol 350 Mg/Ml 100 Ml Infus..Btl IV 01/18/24 13:25 85 ml ONCE ONE Administration Morphine Sulfate 4 mg 01/18/24 10:43 01/18/24 12:33 Morphine Sulfate 4 Mg/Ml Cartridge IVPUSH 01/18/24 10:44 4 mg ONCE ONE Administration Protocol Ondansetron HCl 4 mg 01/18/24 10:43 01/18/24 12:32 Ondansetron Hcl 4 Mg/2 Ml Vial IVPUSH 01/18/24 10:44 4 mg ONCE ONE Administration Medical Decision Making Medical Decision Making [facility] Narrative: 63 yo female with PMH of Crohns disease s/p subtotal colectomy on Pentasa follows with Dr. Navas, GERD, HLD, hypothyroidism, hyperparathyroidism, osteoporosis here with c/o viral like illness but also now GI symptoms and concern for Crohns flare up at this time labs, IVF, IV morphine for pain, viral swabs, CXR for R sided fall, CT scan for Crohns flare. No head or neck trauma from the fall. Differential Diagnosis Differential Diagnoses: The differential diagnosis associated with the presentation includes back strain, viral syndrome, Crohns flare up Admission/Observation Consideration of admission/observation: Escalation of care including admission/observation considered will admit for further management and workup started on CAP coverage and IV steroids Consult Healthcare Provider Management of the patient was discussed with: Hospitalist (will admit) and Resource Development Manager (Dr. Navas aware will follow) Dr. Ravi notified Lab Data [facility] Lab Attestation statement: I reviewed the patient's lab results. 01/18/24 11:07 01/18/24 12:20 Labs: Lab Results 01/18/24 01/18/24 01/18/24 Range/Units 11:07 12:20 14:21 WBC 6.8 (4.8-10.8) X10*3/uL RBC 5.05 (4.20-5.50) X10*6/uL Hgb 11.0 L (12.0-16.0) g/dl Hct 36.8 L (37.0-47.0) % MCV 72.9 L (80.0-98.0) fL MCH 21.8 L (27.0-33.0) pg MCHC 29.9 L (31.0-35.0) g/dl RDW 17.6 H (11.0-16.0) % Plt Count 460 H D (160-400) X10*3/uL MPV 9.2 L (9.4-12.3) fL Immature Gran % (Auto) 0.3 (0.0-0.4) % Neut % (Auto) 78.0 H (45-73) % Lymph % (Auto) 14.6 L (20-40) % [place] % (Auto) 6.9 (2-11) % Eos % (Auto) 0.1 (0-4) % Baso % (Auto) 0.1 (0-2) % Lymph # (Auto) 1.0 L (1.2-4.9) X10*3/uL [place] # (Auto) 0.5 (0.1-1.2) X10*3/uL Eos # (Auto) 0.0 (0.0-0.4) X10*3/uL Baso # (Auto) 0.0 (0.0-0.2) X10*3/uL Abs Immat Gran (auto) 0.02 (0.00-0.03) X10*3/uL Absolute Neuts (auto) 5.3 (2.0-8.3) x10*3/uL Absolute Nucleated RBC 0.000 (0.0-0.012) X10*3/uL Nucleated RBC % (auto) 0.0 (0.0-0.2) /100WBC Sodium 137 (135-145) mmol/L Potassium 4.4 (3.3-5.1) mmol/L Chloride 104 (96-108) mmol/L Carbon Dioxide 17 L (22-29) mmol/L Anion Gap 20 (12-20) BUN 21 H (9-16) mg/dL Creatinine 1.21 (0.5-1.4) mg/dL Estim Creat Clear Calc 46.6 Estimated GFR 45 Random Glucose 121 H (60-115) mg/dL Lactic Acid 1.4 (0.5-2.0) mmol/L Calcium 10.0 D (8.4-10.2) mg/dL Magnesium 2.2 (1.6-2.6) mg/dL Total Bilirubin 0.5 (0.0-1.0) mg/dL Direct Bilirubin 0.2 (0.0-0.5) mg/dL AST 26 (5-31) U/L ALT 15 (0-31) U/L Alkaline Phosphatase 79 (39-117) U/L Troponin I High Sens < 2.7 (<3.5-17.0) ng/L C-Reactive Protein 3.63 H (< or = 0.50) mg/dL Total Protein 8.6 H (6.5-8.0) g/dL Albumin 4.0 (3.5-5.0) g/dL Lipase 13 (8-78) U/L Urine Color Yellow Urine Appearance Clear Urine pH 5.5 (5.0-9.0) Ur Specific [place] >= 1.030 H (1.005-1.025) Urine Protein 30 (1+) H (Neg-Trace) mg/dL Urine Glucose (UA) Negative (Negative) mg/dL Urine Ketones Negative (Negative) mg/dL Urine Blood Trace H (Negative) Urine Nitrite Positive H (Negative) Ur Leukocyte Esterase Negative (Negative) Influenza Type A (PCR) NEGATIVE (Negative) Influenza Type B (PCR) NEGATIVE (Negative) RSV RNA Qual (PCR) NEGATIVE (Negative) SARS-CoV-2 RNA (RT-PCR) NEGATIVE (Negative) Independent Interpretation I performed an independent interpretation of an: EKG, Plain X-Ray (right lower lobe pneumonia) and CT Scan (crohns PSBO) Interpretation: Rate: 73 Rhythm: NSR [place]: normal Normal P waves. Normal MILLY. Normal QRS complex. ST T wave : no GONZALES, artifact noted nonspecific ST T wave changes anterior leads inverted t waves V1-V2 qTC: 412 prior studies: no sig change from priors The study has been interpreted contemporaneously by me. . Radiology Impression Discussion of test interpretation with radiology: I have reviewed the radiologist's reading. Independent Historian Clinical information obtained from an independent historian. History obtained from or confirmed by: EMS External Record Review External record reviewed: Inpatient record Critical Care Time Critical Care Time Critical Care Time: Yes Total Critical Care Time: 60 Attestation: IVF< repeat morphine with improvement in pain, medical consult, admission I attest to this time spent taking care of the patient Discharge Plan Discharge Clinical Impression: Partial small bowel obstruction Abdominal pain Qualifiers: Abdominal location: generalized Qualified Code(s): R10.84 - Generalized abdominal pain Pneumonia Qualifiers: Pneumonia type: due to unspecified organism Laterality: right Lung location: l ower lobe of lung Qualified Code(s): J18.9 - Pneumonia, unspecified organism Vomiting Qualifiers: Vomiting type: unspecified Nausea presence: with nausea Qualified Code(s): R 11.2 - Nausea with vomiting, unspecified Patient Disposition: Admitted As Inpatient Print Language: Swedish
[2024-01-18 11:12] LABS: MANUAL DIFF FLAG NO
[2024-01-18 11:15] LABS: Basophils Percent Auto 0.1 % (0-2); Eosinophils Percent Auto 0.1 % (0-4); Hematocrit 36.8 % (37.0-47.0); Imm Gran Abs Auto 0.02 X10*3/uL (0.00-0.03); Imm Gran Pct Auto 0.3 % (0.0-0.4); Lymphocytes Percent Auto 14.6 % (20-40); Mean Corpuscular HGB Conc 29.9 g/dl (31.0-35.0); Mean Corpuscular Hemoglobin 21.8 pg (27.0-33.0); Mean Corpuscular Volume 72.9 fL (80.0-98.0); Mean Platelet Volume 9.2 fL (9.4-12.3); Monocytes Absolute Auto 0.5 X10*3/uL (0.1-1.2); Monocytes Percent Auto 6.9 % (2-11); Neutrophils Absolute Auto 5.3 x10*3/uL (2.0-8.3); Platelet Count 460 X10*3/uL (160-400); Red Blood Count 5.05 X10*6/uL (4.20-5.50); Red Cell Distribution Width 17.6 % (11.0-16.0); White Blood Count 6.8 X10*3/uL (4.8-10.8)
[2024-01-18 11:25] LABS: Lactic Acid 1.4 mmol/L (0.5-2.0)
[2024-01-18 11:33] LABS: Troponin-I High Sensitivity < 2.7 ng/L (<3.5-17.0)
--- NOTE | 2024-01-18 11:42 | PC.NURSE ---
pt a difficult poke, unable to obtain IV access x4 - request made to ICU to place U/S guided IV line
[2024-01-18 11:55] LABS: Influenza A PCR NEGATIVE (Negative); Influenza B PCR NEGATIVE (Negative); Resp Syncy Virus RNA Qual PCR NEGATIVE (Negative); SARS COV2 PCR INHOUSE NEGATIVE (Negative)
--- NOTE | 2024-01-18 11:58 | PC.NURSE ---
ICU's Richard Betts attempting u/s guided IV placement
[2024-01-18] MEDS: 0.9 % Sodium Chloride 1,000 ML 999 ML IV (12:31)
[2024-01-18] MEDS: ondansetron HCL 4 MG/2 ML VIAL IVPUSH (12:32)
[2024-01-18] MEDS: Morphine Sulfate 4 MG/ML CARTRIDGE IVPUSH (12:33)
[2024-01-18 12:41] LABS: Alanine Aminotransferase 15 U/L (0-31); Alkaline Phosphatase 79 U/L (39-117); Anion Gap 20 (12-20); Aspartate Amino Transferase 26 U/L (5-31); Bilirubin Direct 0.2 mg/dL (0.0-0.5); Bilirubin Total 0.5 mg/dL (0.0-1.0); Blood Urea Nitrogen 21 mg/dL (9-16); C Reactive Protein 3.63 mg/dL (< or = 0.50); Carbon Dioxide 17 mmol/L (22-29); Chloride 104 mmol/L (96-108); Creatinine Clr Calc Pharmacy 46.6; Estimated Glomerular Filt Rate 45; Glucose Random 121 mg/dL (60-115); Lipase 13 U/L (8-78); Magnesium 2.2 mg/dL (1.6-2.6); Potassium 4.4 mmol/L (3.3-5.1); Sodium 137 mmol/L (135-145); Total Protein 8.6 g/dL (6.5-8.0)
[2024-01-18] MEDS: iohexoL 350 MG/ML 100 ML INFUS..BTL IV (13:24)
--- NOTE | 2024-01-18 13:54 | PC.NURSE ---
called phlebotomy to assist in blood draw for cultures and lactic
[2024-01-18] MEDS: HYDROmorphone HCl 0.5 MG/0.5 ML SYRINGE IVPUSH (14:24)
[2024-01-18 14:34] LABS: Appearance Urine Clear; Color Urine Yellow; Glucose Urine UA Negative (Negative); Leukocyte Esterase Urine Negative (Negative); Nitrite Urine Positive (Negative); PH 5.5 (5.0-9.0); Specific Gravity - Urine >= 1.030 (1.005-1.025); UMIC TRIGGER UACC YES; Urine Blood Trace (Negative); Urine Ketones Negative (Negative); Urine Protein 30 (1+) mg/dL (Neg-Trace)
[2024-01-18 15:26] LABS: Bacteria Urine 4+ (None Seen); Hyaline Casts Urine 0-2 /LPF (0-2); RBC Urine 0-2 /HPF (0-2); UACC Culture Trigger YES; WBC Urine 0-5 /HPF (0-5)
[2024-01-18 15:34] LABS: Lactic Acid 0.8 mmol/L (0.5-2.0)
[2024-01-18] MEDS: methylPREDNISolone Sod Succ 125 MG/2 ML VIAL 60 MG IVPUSH (15:47)
[2024-01-18] MEDS: 0.9 % Sodium Chloride 1,000 ML 100 ML IVCONT ×2 (15:47→23:23)
[2024-01-18] MEDS: cefTRIAXone sodium 1 GM in 0.9 % Sodium Chloride 50 ML IV (15:47)
--- NOTE | 2024-01-18 15:50 | P.HPHOSP_ITS ---
History of Present Illness Date of Service: 01/18/24 Attending physician on admission: Leo Carrera Chief Complaint: Abdominal pain Pt is a 63-year-old female with a PMH significant for?Crohn's disease with hx of partial colectomy in 2010, hypothyroidism, and GERD who presents to the ED for evaluation abdominal pain and diarrhea since yesterday. Patient reports having URI-like symptoms starting Monday: Rhinorrhea, sore throat, cough productive of whitish sputum, subjective fever and chills, and diffuse whole body achiness. Denies any sick contacts. Yesterday also began experiencing worsening abdominal pain and non-bloody diarrhea. Reports feeling lightheaded and dizzy after using the bathroom, and then falling to the floor when she missed the bed. Denies LOC or headstrike, but hit her back on the nightstand. Presented to the ED today when abdominal pain persisted this morning. Reports some chest tightness that resolved with sitting up in recliner. Denies nausea or vomiting. No SOB or BURR. In the ED pt was hypertensive up to 150/71, vitals otherwise WNL. Labs were significant for elevated creatinine 1.21 (up from 0.89 on 08/30/23), and C- reactive protein 3.63, otherwise grossly unremarkable. No leukocytosis. Stable H&H. No significant electrolyte abnormalities. Troponin negative. Hepatic function WNL. Lactic acid WNL at 1.4. CXR showed right lower lobe pneumonia. CT?of abdomen and pelvis showed dilated loops of small bowel possibly representing SBO, as well as discontinuous segments of small bowel wall thickening with mesenteric hyperemia and fluid in colon and rectum, possibly reflecting Crohn's disease. EKG demonstrated normal sinus rhythm with nonspecific T-wave abnormality but no evidence of significant ST elevations or depressions. Pt was treated with IVF, ondansetron, morphine, hydromorphone, ceftriaxone, azithromycin, and Solu-Medrol. Pt will be admitted to the hospital for treatment and further evaluation of abdominal pain and diarrhea secondary to Crohn's flare vs SBO. Review of Systems 2 Review of Systems: Diffuse abdominal pain, diarrhea x2 days Lightheadedness, dizziness Rhinorrhea, sore throat, myalgias Chest tightness while laying down Subjective fever and chills Denies nausea, vomiting PMFSH Medical History Dyslipidemia Impaired fasting glucose History of COVID-19 GERD (gastroesophageal reflux disease) COVID-19 Morbid obesity Hyperparathyroidism Overactive bladder Upper back pain, chronic Large breasts Vitamin D deficiency Osteoporosis Postmenopause History of shingles Acquired hypothyroidism RLS (restless legs syndrome) Family History Father Lung cancer Mother Diabetes Hypertension Sister No problems noted. Mother Diabetes Paternal Grandmother Diabetes Father Lung cancer Paternal Uncle Lung cancer Surgical History Hx of sigmoidoscopy Hx of reduction mammoplasty History of bowel resection History of esophagogastroduodenoscopy Hx of colonoscopy Hx of cholecystectomy Hx of tonsillectomy History of appendectomy H/O partial resection of colon Social History Household Members: Family Housing: House Are you a primary care mgr to a significant other at home: No Do you presently have visiting nurse or other home services: No Alcohol intake: current Alcohol intake frequency: holidays/special occasions only Patient Tobacco Use Status: Never used Tobacco Smoked in Last 30 Days: No e-Cigarette/Vaping Use: Never Used Second Hand Smoke Exposure: No Use of substances other than those prescribed or required for medical reasons: No Currently Displaying Signs/Symptoms of Drug Intoxication Withdrawal: No Have you been hit, kicked, punched, or otherwise hurt by someone within the past year? If so, by whom?: No Do you feel safe in your current relationship?: No Current Relationship Is there a partner from a previous relationship who is making you feel unsafe now?: No Are you made to feel afraid or neglected: No Advance Directives: Yes Advance Directives on File: Yes Advance Directives Date on File: 05/31/22 Do you have a plan to hurt others: No Plan Recently lost weight without trying: No Eating poorly because of decreased appetite: No Nutrition Risks: No Nutritional Risk Patient : No : No Poor oral hygiene: No service: No Current occupational status: unemployed and disabled Current occupation: [employer] Cognitive needs: No Hearing needs: No Vision needs: Yes Meds Allergies Allergy/AdvReac Type Severity Reaction Status Date / Time No Known Allergies Allergy Verified 01/18/24 10:37 [No Known Allergies*] Active Medications: Current Medications Azithromycin 500 mg/ Sodium (Chloride) 250 mls @ 125 mls/hr IV ONCE ONE Stop: 01/18/24 16:35 Sodium Chloride (Ns) 1,000 mls @ 100 mls/hr IVCONT .Q10H JENISE Home Medications ?Medication ?Instructions ?Recorded ?Confirmed ?Last Taken ?Type cholecalciferol (vitamin D3) 250 250 mcg PO MOFR 01/18/24 01/18/24 01/15/24 History mcg (10,000 unit) capsule mirabegron 25 mg tablet,extended 25 mg PO DAILY 01/18/24 01/18/24 01/18/24 History release 24 hr (Myrbetriq) Physical Exam 2 Vital Signs and Narrative: Vital Signs: Last Vital Signs Temp 97.8 F 01/18/24 15:17 Pulse 68 01/18/24 15:17 Resp 20 01/18/24 15:17 BP 140/64 H 01/18/24 15:17 Pulse Ox 93 01/18/24 15:17 O2 Del Method Room Air 01/18/24 15:17 BMI result Body Mass Index 29.1 Constitutional: Alert, in no acute distress. Mental Status: Oriented to person, place and time. Eyes: Pupils are equal, round, and reactive to light. Ear, Nose, and Throat: Oropharynx clear, mucous membranes moist. Ears and nose without deformities. Trachea midline. Respiratory: Clear to auscultation bilaterally. No wheezing, rales, or rhonchi. Cardiovascular: S1, S2 regular. No murmurs, rubs, or gallops. Gastrointestinal: Abdomen soft, non-distended, diffuse tenderness, especially epigastric. Normal bowel sounds. Neurologic: Cranial nerves II-XII are grossly intact bilaterally. No focal neurological deficits. Moves all extremities spontaneously. Skin: Warm, dry. Extremities: No edema. Psychiatric: Normal mood and affect. Results Labs 01/18/24 11:07 01/19/24 05:14 Labs: Laboratory Results - last 24 hr 01/18/24 01/18/24 01/18/24 11:07 12:20 14:21 MCV 72.9 L MCH 21.8 L MCHC 29.9 L RDW 17.6 H Plt Count 460 H D MPV 9.2 L Immature Gran % (Auto) 0.3 Neut % (Auto) 78.0 H Lymph % (Auto) 14.6 L [place] % (Auto) 6.9 Eos % (Auto) 0.1 Baso % (Auto) 0.1 Lymph # (Auto) 1.0 L [place] # (Auto) 0.5 Eos # (Auto) 0.0 Baso # (Auto) 0.0 Abs Immat Gran (auto) 0.02 Absolute Neuts (auto) 5.3 Absolute Nucleated RBC 0.000 Nucleated RBC % (auto) 0.0 Anion Gap 20 Estim Creat Clear Calc 46.6 Estimated GFR 45 Random Glucose 121 H Lactic Acid 1.4 Calcium 10.0 D Magnesium 2.2 Total Bilirubin 0.5 Direct Bilirubin 0.2 AST 26 ALT 15 Alkaline Phosphatase 79 Troponin I High Sens < 2.7 C-Reactive Protein 3.63 H Total Protein 8.6 H Albumin 4.0 Lipase 13 Urine Color Yellow Urine Appearance Clear Urine pH 5.5 Ur Specific [place] >= 1.030 H Urine Protein 30 (1+) H Urine Glucose (UA) Negative Urine Ketones Negative Urine Blood Trace H Urine Nitrite Positive H Ur Leukocyte Esterase Negative Urine RBC 0-2 Urine WBC 0-5 Ur Squamous Epith Cells 3-5 Urine Bacteria 4+ Hyaline Casts 0-2 Influenza Type A (PCR) NEGATIVE Influenza Type B (PCR) NEGATIVE RSV RNA Qual (PCR) NEGATIVE SARS-CoV-2 RNA (RT-PCR) NEGATIVE 01/18/24 15:14 MCV MCH MCHC RDW Plt Count MPV Immature Gran % (Auto) Neut % (Auto) Lymph % (Auto) [place] % (Auto) Eos % (Auto) Baso % (Auto) Lymph # (Auto) [place] # (Auto) Eos # (Auto) Baso # (Auto) Abs Immat Gran (auto) Absolute Neuts (auto) Absolute Nucleated RBC Nucleated RBC % (auto) Anion Gap Estim Creat Clear Calc Estimated GFR Random Glucose Lactic Acid 0.8 Calcium Magnesium Total Bilirubin Direct Bilirubin AST ALT Alkaline Phosphatase Troponin I High Sens C-Reactive Protein Total Protein Albumin Lipase Urine Color Urine Appearance Urine pH Ur Specific [place] Urine Protein Urine Glucose (UA) Urine Ketones Urine Blood Urine Nitrite Ur Leukocyte Esterase Urine RBC Urine WBC Ur Squamous Epith Cells Urine Bacteria Hyaline Casts Influenza Type A (PCR) Influenza Type B (PCR) RSV RNA Qual (PCR) SARS-CoV-2 RNA (RT-PCR) Imaging Radiologist's Impressions: Impressions Chest X-Ray 01/18/24 11:36 IMPRESSION: Right lower lobe pneumonia. Follow-up until resolution is advised. Abdomen/Pelvis CT 01/18/24 13:18 IMPRESSION: Dilated loops of small bowel measuring up to 5 cm. This may represent partial small bowel obstruction related to adhesions. There are discontinuous segments of small bowel wall thickening with mesenteric hyperemia. There is fluid within the remaining colon as well as within the rectum. This constellation of findings likely reflects history of known Crohn's disease. Assessment and Plan (1) Abdominal pain: Qualifiers: Abdominal location: generalized Qualified Code(s): R10.84 - Generalized abdominal pain Status: Acute Plan Pt is a 63-year-old female with a PMH significant for?Crohn's disease with hx of partial colectomy in 2010, hypothyroidism, and GERD who presents to the ED for evaluation abdominal pain and diarrhea since yesterday. Pt will be admitted to the hospital for treatment and further evaluation of abdominal pain and diarrhea secondary to Crohn's flare vs SBO. Abdominal pain Pt with abd pain and diarrhea x2 days, no nausea or vomiting CT of abd/pelvis with dilated small bowel loops and discontinuous segments of small bowel wall thickening Concerning for Crohn's disease flare vs SBO IVF, analgesics for pain management, Solu-Medrol 20 mg b.i.d. Continue Pentasa, ppi Patient will be made NPO Will check GI panel, C diff GI consult General surgery consult Community acquired pneumonia CXR with right lower lobe pneumonia, patient with productive cough Patient does not meet sepsis criteria: No fever, tachycardia, tachypnea or leukocytosis Will treat with ceftriaxone and azithromycin, started 01/18/2024 URI symptoms Started 3 days prior Will check respiratory panel Abnormal UA UA positive for nitrites, trace blood, 4+bacteria, negative for leukocyte esterase Pt asymptomatic: denies plyuria or dysuria Currently covered by ceftriaxone and azithromycin Follow cultures Hypothyroidism Continue levothyroxine Full Code Attending:?Dr. Carrera DVT Prophylaxis: Lovenox Pt will require a hospitalization of at least two nights for treatment of?intractable abdominal pain and diarrhea in the setting Crohn's disease flare vs SBO. Pt will require hospitalization for administration of IV steroids, IVF, and IV antibiotics, being placed on bowel rest, close monitoring of labs, and specialist consultation with GI and General surgery. Quality Stroke Does the patient have a stroke diagnosis?: No VTE Prior VTE?: No VTE Risk Level:: Medical - moderate - high VTE Device Contraindication: Treatment Not Indicated VTE Drug Contraindication: N/A - Med Ordered
--- NOTE | 2024-01-18 16:07 | PHA.MEDREC ---
Pharmacy Consult ? Medication Reconciliation Pharmacy has completed the medication reconciliation. Patient reported medicaitons. Adriana Morrow, ArpitaD
[2024-01-18] MEDS: Azithromycin 500 MG in 0.9 % Sodium Chloride 250 ML 125 MG IV (17:14)
[2024-01-18] MEDS: Mesalamine 250 MG CAPSULE.ER 1000 MG PO ×2 (18:24→21:46)
[2024-01-18] MEDS: Enoxaparin Sodium 40 MG/0.4 ML SYRINGE SUBCUT (18:24)
[2024-01-18] MEDS: Morphine Sulfate 4 MG/ML CARTRIDGE IM (20:26)
[2024-01-19 00:03] LABS: CDiff Gene PCR NEGATIVE (Negative)
[2024-01-19 03:35] VITALS: BP 129/65; PULSE 62; RESP 20; TEMP 35.5; O2SAT 98
[2024-01-19] MEDS: methylPREDNISolone Sod Succ 40 MG/ML VIAL 20 MG IVPUSH ×3 (03:39→20:41)
[2024-01-19] MEDS: Omeprazole 20 MG CAPSULE.DR PO (05:52)
[2024-01-19] MEDS: Levothyroxine Sodium 88 MCG TABLET PO (05:52)
[2024-01-19 06:02] LABS: Anion Gap 15 (12-20); Blood Urea Nitrogen 17 mg/dL (9-16); Calcium 8.2 mg/dL (8.4-10.2); Carbon Dioxide 17 mmol/L (22-29); Chloride 112 mmol/L (96-108); Creatinine Clr Calc Pharmacy 77.8; Estimated Glomerular Filt Rate > 60; Glucose Random 118 mg/dL (60-115); Potassium 4.3 mmol/L (3.3-5.1); Sodium 140 mmol/L (135-145)
[2024-01-19 06:49] VITALS: BP 109/57; PULSE 55; RESP 16; TEMP 36.6; O2SAT 99
--- NOTE | 2024-01-19 07:18 | P.CNGI_ITS ---
History of Present Illness Data of Consult Service Date: 01/19/24 Requesting physician: Amy Odell Primary Care Provider: Yuli Garner [facility] Reason for consult: Crohn's disease 63 YF with Crohn's disease (on Pentasa) with hx of partial colectomy in 2010, hypothyroidism, and GERD seen at [facility] ED on 01/18/24 with 1 day hsitory of a bdominal pain and diarrhea. Patient reported not feeling well and having URI-like symptoms starting Monday: Rhinorrhea, sore throat, cough productive of whitish sputum, subjective fever and chills, and diffuse whole body achiness. She denied any sick contacts. On 01/17/24 pt noted worsening abdominal pain and non-bloody diarrhea, feeling lightheaded and dizzy after using the bathroom, and then falling to the floor when she missed the bed. She denied LOC or headstrike, but hit her back on the nightstand. Pt came to the ER when abdominal pain persisted and was associated with some chest tightness that resolved with sitting up in recliner. She denied nausea or vomiting, SOB or BURR. Pt is known to me from past GI clinic visits for Crohn's disease In the ED pt was hypertensive up to 150/71, vitals otherwise WNL. Labs were significant for elevated creatinine 1.21 (up from 0.89 on 08/30/23), and C-reactive protein 3.63, otherwise grossly unremarkable. No leukocytosis. Stable H&H. No significant electrolyte abnormalities. Troponin negative. Hepatic function WNL. Lactic acid WNL at 1.4. CXR showed right lower lobe pneumonia. CT?of abdomen and pelvis showed dilated loops of small bowel possibly representing SBO, as well as discontinuous segments of small bowel wall thickening with mesenteric hyperemia and fluid in colon and rectum, possibly reflecting Crohn's disease. EKG demonstrated normal sinus rhythm with nonspecific T-wave abnormality but no evidence of significant ST elevations or depressions. Pt was treated with IVF, ondansetron, morphine, hydromorphone, ceftriaxone, azithromycin, and Solu-Medrol. She was admitted to the hospital for treatment and further evaluation of abdominal pain and diarrhea secondary to Crohn's flare vs SBO 01/18/[address] SCAN SHOWED: Dilated loops of small bowel measuring up to 5 cm. This may represent partial small bowel obstruction related to adhesions. There are discontinuous segments of small bowel wall thickening with mesenteric hyperemia. There is fluid within the remaining colon as well as within the rectum. This constellation of findings likely reflects history of known Crohn's disease. 11/20/23 FLEXIBLE SIGMOIDOSCOPY SHOWED: Multiple 1-2 cms ulcers at the ileo-colic anastomosis - multiple biopsies were obtained. Biopsies showed: Anastomotic ulcer, biopsy: Ileocolonic mucosa with patchy active inflammation and fragment of ulcer material? Review of Systems 2 Constitutional: Constitutional: Denies fever(s) and Reports weakness Cardiovascular: Cardiovascular: Denies chest pain and Denies dyspnea Respiratory: Respiratory: Denies dyspnea Gastrointestinal: Gastrointestinal: Reports abdominal pain, Denies change in stool character, Reports nausea and Denies vomiting Integumentary/Breasts: Skin/Breast: Denies rash and Denies jaundice Neurologic: Reports weakness PMFSH Past Medical History Medical History Dyslipidemia Impaired fasting glucose History of COVID-19 GERD (gastroesophageal reflux disease) COVID-19 Morbid obesity Hyperparathyroidism Overactive bladder Upper back pain, chronic Large breasts Vitamin D deficiency Osteoporosis Postmenopause History of shingles Acquired hypothyroidism RLS (restless legs syndrome) Family History Family History Father Lung cancer Mother Diabetes Hypertension Sister No problems noted. Mother Diabetes Paternal Grandmother Diabetes Father Lung cancer Paternal Uncle Lung cancer Surgical History Surgical History Hx of sigmoidoscopy Hx of reduction mammoplasty History of bowel resection History of esophagogastroduodenoscopy Hx of colonoscopy Hx of cholecystectomy Hx of tonsillectomy History of appendectomy H/O partial resection of colon Social History Social History Household Members: Family Housing: House Are you a primary foster care social worker to a significant other at home: No Do you presently have visiting nurse or other home services: No Alcohol intake: current Alcohol intake frequency: holidays/special occasions only Patient Tobacco Use Status: Never used Tobacco e-Cigarette/Vaping Use: Never Used Second Hand Smoke Exposure: No Advance Directives Date on File: 09/13/22 service: No Current occupational status: unemployed and disabled Current occupation: [employer] Cognitive needs: No Hearing needs: No Vision needs: Yes Meds Allergies Allergy/AdvReac Type Severity Reaction Status Date / Time No Known Allergies Allergy Verified 01/25/24 11:33 [No Known Allergies*] Active Medications: Current Medications Acetaminophen (Acetaminophen 325 Mg Tablet) 650 mg PO Q6H PRN PRN Reason: Pain, Mild (Pain Scale 1-3) Benzonatate (Benzonatate 100 Mg Capsule) 100 mg PO TID PRN PRN Reason: Cough Enoxaparin Sodium (Enoxaparin Sodium 40 Mg/0.4 Ml Syringe) 40 mg SUBCUT Q24H [facility] Last Admin: 01/18/24 18:24 Dose: 40 mg Sodium Chloride (Ns) 1,000 mls @ 100 mls/hr IVCONT .Q10H [facility] Last Admin: 01/18/24 23:23 Dose: 100 mls/hr Azithromycin 500 mg/ Sodium (Chloride) 250 mls @ 125 mls/hr IV Q24H [facility] Ceftriaxone Sodium 1 gm/ (Sodium Chloride) 50 mls @ 100 mls/hr IV Q24H [facility] Levothyroxine Sodium (Levothyroxine Sodium 88 Mcg Tablet) 88 mcg PO DAILY@0600 [facility] Last Admin: 01/19/24 05:52 Dose: 88 mcg Loratadine (Loratadine 10 Mg Tablet) 10 mg PO DAILY PRN PRN Reason: allergy symptoms Melatonin (Melatonin 3 Mg Tablet) 6 mg PO BEDTIME PRN PRN Reason: Insomnia Mesalamine (Mesalamine 250 Mg Capsule.Er) 1,000 mg PO QID [facility] Last Admin: 01/18/24 21:46 Dose: 1,000 mg Methylprednisolone Sodium Succinate (Methylprednisolone Sod Succ 40 Mg/Ml Vial) 20 mg IVPUSH Q12H [facility] Last Admin: 01/19/24 03:39 Dose: 20 mg Mirabegron (Mirabegron 25 Mg Tab.Er.24h) 25 mg PO DAILY [facility] Morphine Sulfate (Morphine Sulfate 4 Mg/Ml Cartridge) 4 mg IVPUSH Q4H PRN; Protocol PRN Reason: Pain, Severe (Pain Scale 7-10) Omeprazole (Omeprazole 20 Mg Capsule.Dr) 20 mg PO DAILY@0630 [facility] Last Admin: 01/19/24 05:52 Dose: 20 mg Ondansetron HCl (Ondansetron Hcl 4 Mg/2 Ml Vial) 4 mg IVPUSH Q8H PRN PRN Reason: Nausea and Vomiting Sodium Chloride (0.9 % Sodium Chloride Flush 3 Ml Syringe) 3 ml IVFLUSH QSHIFT [facility] Last Admin: 01/18/24 21:48 Dose: Not Given Home Medications ?Medication ?Instructions ?Recorded ?Confirmed ?Last Taken ?Type cholecalciferol (vitamin D3) 250 250 mcg PO MOFR 01/18/24 01/18/24 01/15/24 History mcg (10,000 unit) capsule mirabegron 25 mg tablet,extended 25 mg PO DAILY 01/18/24 01/18/24 01/18/24 History release 24 hr (Myrbetriq) Physical Exam 2 Vital Signs: Vital Signs: Last Vital Signs Temp 98 F 01/19/24 06:49 Pulse 55 01/19/24 06:49 Resp 16 01/19/24 06:49 BP 109/57 L 01/19/24 06:49 Pulse Ox 99 01/19/24 06:49 O2 Del Method Nasal Cannula 01/19/24 06:49 O2 Flow Rate 2 01/19/24 06:49 BMI result Body Mass Index 31.2 Appearance: Alert.? Oriented X3.? cvs: rrr, [id number] , no murmur res: clear to auscultation ,no rhonchii or wheezing abd: no rebound or guarding ,mild tenderness diffuse , bs present. ext pulses present , no cyanosis . neuro: axo3 , nonfocal. Results Labs 01/18/24 11:07 01/22/24 08:27 Labs: Short CBC 01/18/24 Range/Units 11:07 WBC 6.8 (4.8-10.8) X10*3/uL Hgb 11.0 L (12.0-16.0) g/dl Hct 36.8 L (37.0-47.0) % Plt Count 460 H D (160-400) X10*3/uL BMP 01/18/24 01/19/24 12:20 05:14 Sodium 137 140 Potassium 4.4 4.3 Chloride 104 112 H Carbon Dioxide 17 L 17 L BUN 21 H 17 H Creatinine 1.21 0.75 Calcium 10.0 D 8.2 L D Liver Function 01/18/24 Range/Units 12:20 Total Bilirubin 0.5 (0.0-1.0) mg/dL Direct Bilirubin 0.2 (0.0-0.5) mg/dL AST 26 (5-31) U/L ALT 15 (0-31) U/L Alkaline Phosphatase 79 (39-117) U/L Albumin 4.0 (3.5-5.0) g/dL Urine 01/18/24 Range/Units 14:21 Urine Color Yellow Urine Appearance Clear Urine pH 5.5 (5.0-9.0) Ur Specific [place] >= 1.030 H (1.005-1.025) Urine Protein 30 (1+) H (Neg-Trace) mg/dL Urine Glucose (UA) Negative (Negative) mg/dL Assessment and Plan (1) Crohn's colitis: Qualifiers: Digestive disease complication type: unspecified complication Qualified Code(s): K50.119 - Crohn's disease of large intestine with unspecified complications Status: Acute (2) Partial small bowel obstruction: Status: Acute Plan 63 YF admitted with pneumonia and partial SBO due to Crohn's disease. ABD CT scan showed dilated loops of small bowel measuring up to 5 cm cw partial small bowel obstruction related to adhesions. Pt has a long history of constipation and is status post subtotal colectomy at [facility] in 2000. She is suspected to have Crohn's disease and treated with mesalamine and intermittent steroids in the past. She has had intermittently elevated CRP levels. Her clinical course has been complicated by obstipation requiring multiple laxatives. She has required hospitalization for SBO - last hospitalization was in 05/2022. Her imaging studies have shown progressive small bowel dilation since 2013. RECOMMENDATIONS: 1. Agree with IV steroids. 2. Start on a clear liquid diet. 3. If she continues to pass gas and have BMs, and is tolerating a clear liquid diet, advance to a full liquid diet in the am. Hospital course: Patient was admitted to the hospital for abdominal pain and diarrhea, also feel congested and URI like symptoms: Further workup no leukocytosis, no fever, ct abd showed possible partial bowel obstruction vs crohn flare -initially started on bowel rest, IV hydration, pain management, IV [id number] was seen by GI -seems to be improving, pain improved, no leukocytosis, no fever, tolerating diet, passing bowels and flatus. GI recommended to switch to po 40 mg daily of prednisone and taper by 10 mg every week over 4 weeks. Patient was also seen by surgery:less likely psbo-passing bm's ,tolerating diet ,improved with iv steriods ,Kub also shows interval improving bowel changes (please see imaging section for details). pneumonia :switched to ceftin 500 mg po bid and doxycycline 100 mg po bid for 5 more days. also positive for parainfluenza URI. please consider repeat chest imaging in 3-4 weeks to see resolution of pneumonia. Abnormal UA UA positive for nitrites, trace blood, 4+bacteria, negative for leukocyte esterase Pt asymptomatic: denies plyuria or dysuria urine culture -ecoli d/w Id -no need for antibiotics for possible asymptomatic bacteruria/pyuria. Obesity: Encouraged to lose weight and cutdown calories. Patient is to follow-up with GI and PCP outpatient. plan: complete ceftin 500 mg po bid and doxycycline 100 mg po bid for 5 more days. please consider repeat chest imaging in 3-4 weeks to see resolution of pneumonia. PO prednisone 40 mg daily and taper by 10 mg every week over 4 weeks. Procedures Date of Service Date of Service: 01/27/24
[2024-01-19] MEDS: Morphine Sulfate 4 MG/ML CARTRIDGE IVPUSH ×3 (07:59→21:42)
[2024-01-19] MEDS: Mirabegron 25 MG TAB.ER.24H PO (08:00)
[2024-01-19] MEDS: Mesalamine 250 MG CAPSULE.ER 1000 MG PO ×4 (08:00→20:42)
--- NOTE | 2024-01-19 08:13 | PM.CNGS ---
History of Present Illness Consult details Consult date: 01/18/24 <Shara Oliva PA-C - Last Filed: 01/19/24 08:23> 01/18/24 <Harlan Ravi MD - Last Filed: 01/19/24 11:31> Requesting physician: Leo Carrera <Shara Oliva PA-C - Last Filed: 01/19/24 08:23> Narrative: 63 yo female with PMH of Crohns disease s/p subtotal colectomy on Pentasa, GERD, HLD, hypothyroidism, hyperparathyroidism, osteoporosis who presented to the ED with complaints of abdominal pain and diarrhea. She reports she developed diffuse abdominal pain Monday. The pain did not improve and was associated with nausea without vomiting and she developed multiple episodes of diarrhea. She felt so weak she fell out of bed. She denies sick contacts. Due to the pain and diarrhea, she came to the ED for evaluation. Work up included a CT scan abd/pelvis which showed dilated loops of small bowel with discontinuous segments of bowel wall thickening involving the mid small bowel and distal small bowel. She was admitted to the medical service for further treatment of the SBO. Surgery was consulted. <Shraa Oliva PA-C - Last Filed: 01/19/24 08:23> Review of Systems Constitutional: Constitutional: Denies fever(s) and Reports weakness <INNA Garcia Last Filed: 01/19/24 08:23> Cardiovascular: Cardiovascular: Denies chest pain and Denies dyspnea <INNA Garcia Last Filed: 01/19/24 08:23> Respiratory: Respiratory: Denies dyspnea <INNA Garcia Last Filed: 01/19/24 08:23> Gastrointestinal: Gastrointestinal: Reports abdominal pain, Denies change in stool character, Reports nausea and Denies vomiting <INNA Garcia Last Filed: 01/19/24 08:23> Integumentary/Breasts: Skin/Breast: Denies rash and Denies jaundice <INNA Garcia Last Filed: 01/19/24 08:23> Neurologic: Reports weakness <INNA Garcia Last Filed: 01/19/24 08:23> [facility] Past Medical History Medical History: Medical History Dyslipidemia Impaired fasting glucose History of COVID-19 GERD (gastroesophageal reflux disease) COVID-19 Morbid obesity Hyperparathyroidism Overactive bladder Upper back pain, chronic Large breasts Vitamin D deficiency Osteoporosis Postmenopause History of shingles Acquired hypothyroidism RLS (restless legs syndrome) <Shara Oliva PA-C - Last Filed: 01/19/24 08:23> Family History Family History: Family History Father Lung cancer Mother Diabetes Hypertension Sister No problems noted. Mother Diabetes Paternal Grandmother Diabetes Father Lung cancer Paternal Uncle Lung cancer <Shara Oliva PA-C - Last Filed: 01/19/24 08:23> Surgical History Surgical History: Surgical History Hx of sigmoidoscopy Hx of reduction mammoplasty History of bowel resection History of esophagogastroduodenoscopy Hx of colonoscopy Hx of cholecystectomy Hx of tonsillectomy History of appendectomy H/O partial resection of colon <Shara Oliva PA-C - Last Filed: 01/19/24 08:23> Social History Social History: Social History Household Members: Family Housing: House Are you a primary animal care supervisor to a significant other at home: No Do you presently have visiting nurse or other home services: No Alcohol intake: current Alcohol intake frequency: holidays/special occasions only Patient Tobacco Use Status: Never used Tobacco Smoked in Last 30 Days: No e-Cigarette/Vaping Use: Never Used Second Hand Smoke Exposure: No Use of substances other than those prescribed or required for medical reasons: No Currently Displaying Signs/Symptoms of Drug Intoxication Withdrawal: No Have you been hit, kicked, punched, or otherwise hurt by someone within the past year? If so, by whom?: No Do you feel safe in your current relationship?: No Current Relationship Is there a partner from a previous relationship who is making you feel unsafe now?: No Are you made to feel afraid or neglected: No Advance Directives: Yes Advance Directives on File: Yes Advance Directives Date on File: 05/31/22 Do you have a plan to hurt others: No Plan Recently lost weight without trying: No Eating poorly because of decreased appetite: No Nutrition Risks: No Nutritional Risk Patient : No : No Poor oral hygiene: No service: No Current occupational status: unemployed and disabled Current occupation: [employer] Cognitive needs: No Hearing needs: No Vision needs: Yes <Shara Oliva PA-C - Last Filed: 01/19/24 08:23> Meds Allergies/Adverse reactions: Allergies Allergy/AdvReac Type Severity Reaction Status Date / Time No Known Allergies Allergy Verified 01/18/24 10:37 [No Known Allergies*] <Shara Oliva PA-C - Last Filed: 01/19/24 08:23> Active Medications: Current Medications Acetaminophen (Acetaminophen 325 Mg Tablet) 650 mg PO Q6H PRN PRN Reason: Pain, Mild (Pain Scale 1-3) Benzonatate (Benzonatate 100 Mg Capsule) 100 mg PO TID PRN PRN Reason: Cough Enoxaparin Sodium (Enoxaparin Sodium 40 Mg/0.4 Ml Syringe) 40 mg SUBCUT Q24H [facility] Last Admin: 01/18/24 18:24 Dose: 40 mg Sodium Chloride (Ns) 1,000 mls @ 100 mls/hr IVCONT .Q10H [facility] Last Admin: 01/18/24 23:23 Dose: 100 mls/hr Azithromycin 500 mg/ Sodium (Chloride) 250 mls @ 125 mls/hr IV Q24H [facility] Ceftriaxone Sodium 1 gm/ (Sodium Chloride) 50 mls @ 100 mls/hr IV Q24H [facility] Levothyroxine Sodium (Levothyroxine Sodium 88 Mcg Tablet) 88 mcg PO DAILY@0600 [facility] Last Admin: 01/19/24 05:52 Dose: 88 mcg Loratadine (Loratadine 10 Mg Tablet) 10 mg PO DAILY PRN PRN Reason: allergy symptoms Melatonin (Melatonin 3 Mg Tablet) 6 mg PO BEDTIME PRN PRN Reason: Insomnia Mesalamine (Mesalamine 250 Mg Capsule.Er) 1,000 mg PO QID [facility] Last Admin: 01/19/24 08:00 Dose: 1,000 mg Methylprednisolone Sodium Succinate (Methylprednisolone Sod Succ 40 Mg/Ml Vial) 20 mg IVPUSH Q12H [facility] Last Admin: 01/19/24 03:39 Dose: 20 mg Mirabegron (Mirabegron 25 Mg Tab.Er.24h) 25 mg PO DAILY [facility] Last Admin: 01/19/24 08:00 Dose: 25 mg Morphine Sulfate (Morphine Sulfate 4 Mg/Ml Cartridge) 4 mg IVPUSH Q4H PRN; Protocol PRN Reason: Pain, Severe (Pain Scale 7-10) Last Admin: 01/19/24 07:59 Dose: 4 mg Omeprazole (Omeprazole 20 Mg Capsule.Dr) 20 mg PO DAILY@0630 [facility] Last Admin: 01/19/24 05:52 Dose: 20 mg Ondansetron HCl (Ondansetron Hcl 4 Mg/2 Ml Vial) 4 mg IVPUSH Q8H PRN PRN Reason: Nausea and Vomiting Sodium Chloride (0.9 % Sodium Chloride Flush 3 Ml Syringe) 3 ml IVFLUSH QSHIFT [facility] Last Admin: 01/19/24 08:02 Dose: Not Given <INNA Garcia Last Filed: 01/19/24 08:23> Home medications: Home Medications ?Medication ?Instructions ?Recorded ?Confirmed ?Last Taken ?Type cholecalciferol (vitamin D3) 250 250 mcg PO MOFR 01/18/24 01/18/24 01/15/24 History mcg (10,000 unit) capsule mirabegron 25 mg tablet,extended 25 mg PO DAILY 01/18/24 01/18/24 01/18/24 History release 24 hr (Myrbetriq) <INNA Garcia Last Filed: 01/19/24 08:23> Physical Exam Vital Signs: Vital Signs: Last Vital Signs Temp 98 F 01/19/24 06:49 Pulse 55 01/19/24 06:49 Resp 16 01/19/24 06:49 BP 109/57 L 01/19/24 06:49 Pulse Ox 99 01/19/24 06:49 O2 Del Method Nasal Cannula 01/19/24 06:49 O2 Flow Rate 2 01/19/24 06:49 BMI result Body Mass Index 31.2 <INNA Garcia Last Filed: 01/19/24 08:23> Const: Other: uncomfortable appearing <Shara LopezdeauCORIAlvin Rivera Last Filed: 01/19/24 08:23> General: no acute distress and alert <Shara LopezdeauCORIAlvin Rivera Last Filed: 01/19/24 08:23> Orientation/consciousness: patient oriented x3 <Shara PrattbodeauCORIAlvin Rivera Last Filed: 01/19/24 08:23> Resp: Effort & Inspection: normal respiratory effort <Shara LopezdeauDELMIIrena Rivera Last Filed: 01/19/24 08:23> GI: Inspection: Yes distended (mildly ) <Shara LopezdeauCORIAlvin Rivera Last Filed: 01/19/24 08:23> Palpation (GI): Soft to palpation, Tenderness to palpation present (GI) (mild diffuse ), no guarding and not rigid <Shara PrattCORI franksAlvin Rivera Last Filed: 01/19/24 08:23> Percussion: Yes tympanic to percussion <Shara LopezDELMI oatesIrena Rivera Last Filed: 01/19/24 08:23> Skin: General skin exam: no rashes or lesions noted <Shara LopezdeauDELMIIrena Rivera Last Filed: 01/19/24 08:23> Neuro: General: patient oriented x3 <Shara PrattCORI franksAlvin Rivera Last Filed: 01/19/24 08:23> Results Labs Result diagrams: 01/18/24 11:07 01/19/24 05:14 <Shara PrattCORI franksAlvin Rivera Last Filed: 01/19/24 08:23> Labs: Abnormal lab results 01/18/24 01/18/24 01/18/24 Range/Units 11:07 12:20 14:21 Hgb 11.0 L (12.0-16.0) g/dl Hct 36.8 L (37.0-47.0) % MCV 72.9 L (80.0-98.0) fL MCH 21.8 L (27.0-33.0) pg MCHC 29.9 L (31.0-35.0) g/dl RDW 17.6 H (11.0-16.0) % Plt Count 460 H D (160-400) X10*3/uL MPV 9.2 L (9.4-12.3) fL Neut % (Auto) 78.0 H (45-73) % Lymph % (Auto) 14.6 L (20-40) % Lymph # (Auto) 1.0 L (1.2-4.9) X10*3/uL Chloride (96-108) mmol/L Carbon Dioxide 17 L (22-29) mmol/L BUN 21 H (9-16) mg/dL Random Glucose 121 H (60-115) mg/dL Calcium (8.4-10.2) mg/dL C-Reactive Protein 3.63 H (< or = 0.50) mg/dL Total Protein 8.6 H (6.5-8.0) g/dL Ur Specific [place] >= 1.030 H (1.005-1.025) Urine Protein 30 (1+) H (Neg-Trace) mg/dL Urine Blood Trace H (Negative) Urine Nitrite Positive H (Negative) 01/19/24 Range/Units 05:14 Hgb (12.0-16.0) g/dl Hct (37.0-47.0) % MCV (80.0-98.0) fL MCH (27.0-33.0) pg MCHC (31.0-35.0) g/dl RDW (11.0-16.0) % Plt Count (160-400) X10*3/uL MPV (9.4-12.3) fL Neut % (Auto) (45-73) % Lymph % (Auto) (20-40) % Lymph # (Auto) (1.2-4.9) X10*3/uL Chloride 112 H (96-108) mmol/L Carbon Dioxide 17 L (22-29) mmol/L BUN 17 H (9-16) mg/dL Random Glucose 118 H (60-115) mg/dL Calcium 8.2 L D (8.4-10.2) mg/dL C-Reactive Protein (< or = 0.50) mg/dL Total Protein (6.5-8.0) g/dL Ur Specific [place] (1.005-1.025) Urine Protein (Neg-Trace) mg/dL Urine Blood (Negative) Urine Nitrite (Negative) Short CBC 01/18/24 Range/Units 11:07 WBC 6.8 (4.8-10.8) X10*3/uL Hgb 11.0 L (12.0-16.0) g/dl Hct 36.8 L (37.0-47.0) % Plt Count 460 H D (160-400) X10*3/uL BMP 01/18/24 01/19/24 12:20 05:14 Sodium 137 140 Potassium 4.4 4.3 Chloride 104 112 H Carbon Dioxide 17 L 17 L BUN 21 H 17 H Creatinine 1.21 0.75 Calcium 10.0 D 8.2 L D Liver Function 01/18/24 Range/Units 12:20 Total Bilirubin 0.5 (0.0-1.0) mg/dL Direct Bilirubin 0.2 (0.0-0.5) mg/dL AST 26 (5-31) U/L ALT 15 (0-31) U/L Alkaline Phosphatase 79 (39-117) U/L Albumin 4.0 (3.5-5.0) g/dL Urine 01/18/24 Range/Units 14:21 Urine Color Yellow Urine Appearance Clear Urine pH 5.5 (5.0-9.0) Ur Specific [place] >= 1.030 H (1.005-1.025) Urine Protein 30 (1+) H (Neg-Trace) mg/dL Urine Glucose (UA) Negative (Negative) mg/dL All other labs normal. <INNA Garcia Last Filed: 01/19/24 08:23> Imaging Abdomen CT scan report/results: report reviewed and image reviewed <INNA Garcia Last Filed: 01/19/24 08:23> Assessment and Plan (1) Abdominal pain: Qualifiers: Abdominal location: generalized Qualified Code(s): R10.84 - Generalized abdominal pain <INNA Garcia Last Filed: 01/19/24 08:23> Status: Acute <INNA Garcia Last Filed: 01/19/24 08:23> (2) Crohn's colitis: Qualifiers: Digestive disease complication type: unspecified complication Qualified Code(s): K50.119 - Crohn's disease of large intestine with unspecified complications <Shara Oliva PA-C - Last Filed: 01/19/24 08:23> Status: Acute <Shara Oliva PA-C - Last Filed: 01/19/24 08:23> 63 yo female with PMH of Crohns disease s/p subtotal colectomy on Pentasa, GERD, HLD, hypothyroidism, hyperparathyroidism, osteoporosis with c/o 4 days of abdominal pain now with diarrhea with CT scan abd/pelvis which showing dilated loops of small bowel with discontinuous segments of bowel wall thickening. Clinical picture more suggestive of SBO secondary to Crohns flare. Would recommend supportive treatment and GI consult for possible IV steroids. Can hold off on NGT as she was not significantly distended and was not vomiting, unless this develops. Discussed with patient who is comfortable with plan. <Shara Oliva PA-C - Last Filed: 01/19/24 08:23> Procedures Date of Service Date of Service: 01/19/24 <Shara Oliva PA-C - Last Filed: 01/19/24 08:23> 01/19/24 <Harlan Ravi MD - Last Filed: 01/19/24 11:31>
[2024-01-19 09:02] LABS: Adenovirus F 40/41 Not Detected (Not Detect.); Astrovirus Not Detected (Not Detect.); Campylobacter Not Detected (Not Detect.); Cryptosporidium Not Detected (Not Detect.); Cyclospora cayetanensis Not Detected (Not Detect.); E. coli EAEC Not Detected (Not Detect.); E. coli EPEC Not Detected (Not Detect.); E. coli ETEC Not Detected (Not Detect.); E. coli STEC Not Detected (Not Detect.); Entamoeba histolytica Not Detected (Not Detect.); Giardia lamblia Not Detected (Not Detect.); Norovirus GI/GII Not Detected (Not Detect.); Plesiomonas shigelloides Not Detected (Not Detect.); Rotavirus A Not Detected (Not Detect.); Salmonella Not Detected (Not Detect.); Sapovirus Not Detected (Not Detect.); Shigella sp./EIEC Not Detected (Not Detect.); Vibrio Not Detected (Not Detect.); Vibrio Cholerae Not Detected (Not Detect.); Yersinia enterocolitica Not Detected (Not Detect.)
[2024-01-19 10:16] LABS: Adenovirus PCR Not Detected (Not Detect.); Bordetella parapertussis PCR Not Detected (Not Detect.); Bordetella pertussis PCR Not Detected (Not Detect.); Chlamydia pneumoniae PCR Not Detected (Not Detect.); Coronavirus 229E PCR Not Detected (Not Detect.); Coronavirus HKU1 PCR Not Detected (Not Detect.); Coronavirus NL63 PCR Not Detected (Not Detect.); Coronavirus OC43 PCR Not Detected (Not Detect.); Human metapneumovirus PCR Not Detected (Not Detect.); Influenza A PCR Not Detected (Not Detect.); Influenza B PCR Not Detected (Not Detect.); Mycoplasma pneumoniae PCR Not Detected (Not Detect.); Parainfluenza 1 PCR Not Detected (Not Detect.); Parainfluenza 2 PCR Not Detected (Not Detect.); Parainfluenza 3 PCR Detected (Not Detect.); Parainfluenza 4 PCR Not Detected (Not Detect.); RSV PCR Not Detected (Not Detect.); Rhino/Enterovirus PCR Not Detected (Not Detect.)
--- NOTE | 2024-01-19 10:21 | MHC.CM.PN ---
CM MET WITH PT AT BEDSIDE. PT LIVES WITH A FAMILY MEMBER. INDEPENDENT AT BASELINE. +HCP ON FILE. PCP DR. PALMA DP: HOME , NO SERVICES ANTICIPATED. PT HAS OWN RIDE HOME. CM WILL CONTINUE TO FOLLOW FOR ANY CHANGE TO DC PLAN/NEEDS.
[2024-01-19] MEDS: 0.9 % Sodium Chloride 1,000 ML 100 ML IVCONT ×2 (10:33→20:41)
--- NOTE | 2024-01-19 11:31 | PM.PNGS ---
Subjective Subjective Date of Service: 01/19/24 Interval history: Patient's abdominal symptoms much improved. Loose stool also is improving Physical Exam Vital Signs: Vital Signs: Last Vital Signs Temp 98 F 01/19/24 06:49 Pulse 55 01/19/24 06:49 Resp 16 01/19/24 06:49 BP 109/57 L 01/19/24 06:49 Pulse Ox 99 01/19/24 06:49 O2 Del Method Nasal Cannula 01/19/24 06:49 O2 Flow Rate 2 01/19/24 06:49 BMI result Body Mass Index 31.2 GI: Other: Very corpulent abdomen. Midline scar. Minimal upper abdominal tenderness but without any evidence of guarding, rebound, or rigidity. Objective Data Active Medications Acetaminophen (Acetaminophen 325 Mg Tablet) 650 mg PO Q6H PRN PRN Reason: Pain, Mild (Pain Scale 1-3) Benzonatate (Benzonatate 100 Mg Capsule) 100 mg PO TID PRN PRN Reason: Cough Enoxaparin Sodium (Enoxaparin Sodium 40 Mg/0.4 Ml Syringe) 40 mg SUBCUT Q24H [facility] Last Admin: 01/18/24 18:24 Dose: 40 mg Documented By: HARPREET Sodium Chloride (Ns) 1,000 mls @ 100 mls/hr IVCONT .Q10H [facility] [place] Last Admin: 01/19/24 10:33 Dose: 100 mls/hr Documented By: NISHANT Azithromycin 500 mg/ Sodium (Chloride) 250 mls @ 125 mls/hr IV Q24H [facility] [place] Ceftriaxone Sodium 1 gm/ (Sodium Chloride) 50 mls @ 100 mls/hr IV Q24H [facility] [place] Levothyroxine Sodium (Levothyroxine Sodium 88 Mcg Tablet) 88 mcg PO DAILY@0600 [facility] [place] Last Admin: 01/19/24 05:52 Dose: 88 mcg Documented By: BRIANA Loratadine (Loratadine 10 Mg Tablet) 10 mg PO DAILY PRN PRN Reason: allergy symptoms Melatonin (Melatonin 3 Mg Tablet) 6 mg PO BEDTIME PRN PRN Reason: Insomnia Mesalamine (Mesalamine 250 Mg Capsule.Er) 1,000 mg PO QID [facility] [place] Last Admin: 01/19/24 08:00 Dose: 1,000 mg Documented By: NISHANT Methylprednisolone Sodium Succinate (Methylprednisolone Sod Succ 40 Mg/Ml Vial) 20 mg IVPUSH TID [facility] [place] Mirabegron (Mirabegron 25 Mg Tab.Er.24h) 25 mg PO DAILY [facility] [place] Last Admin: 01/19/24 08:00 Dose: 25 mg Documented By: NISHANT Morphine Sulfate (Morphine Sulfate 4 Mg/Ml Cartridge) 4 mg IVPUSH Q4H PRN; Protocol PRN Reason: Pain, Severe (Pain Scale 7-10) Last Admin: 01/19/24 07:59 Dose: 4 mg Documented By: NISHANT Omeprazole (Omeprazole 20 Mg Capsule.Dr) 20 mg PO DAILY@0630 [facility] [place] Last Admin: 01/19/24 05:52 Dose: 20 mg Documented By: BRIANA Ondansetron HCl (Ondansetron Hcl 4 Mg/2 Ml Vial) 4 mg IVPUSH Q8H PRN PRN Reason: Nausea and Vomiting Sodium Chloride (0.9 % Sodium Chloride Flush 3 Ml Syringe) 3 ml IVFLUSH QSHIFT [facility] [place] Last Admin: 01/19/24 08:02 Dose: Not Given Documented By: NISHANT Non-Admin Reason: IV Running Labs 01/18/24 11:07 01/19/24 05:14 Labs: Laboratory Results - last 24 hr 01/18/24 01/18/24 01/18/24 11:07 12:20 14:21 Anion Gap 20 Estim Creat Clear Calc 46.6 Estimated GFR 45 Random Glucose 121 H Lactic Acid Calcium 10.0 D Magnesium 2.2 Total Bilirubin 0.5 Direct Bilirubin 0.2 AST 26 ALT 15 Alkaline Phosphatase 79 Troponin I High Sens < 2.7 C-Reactive Protein 3.63 H Total Protein 8.6 H Albumin 4.0 Lipase 13 Urine Color Yellow Urine Appearance Clear Urine pH 5.5 Ur Specific [place] >= 1.030 H Urine Protein 30 (1+) H Urine Glucose (UA) Negative Urine Ketones Negative Urine Blood Trace H Urine Nitrite Positive H Ur Leukocyte Esterase Negative Urine RBC 0-2 Urine WBC 0-5 Ur Squamous Epith Cells 3-5 Urine Bacteria 4+ Hyaline Casts 0-2 Stl C. cayetanensis PCR Stool Rotavirus A PCR Stl Adenov F 40/41 PCR Stool Astrovirus (PCR) Stool Campylobacter PCR Stool Cryptosporidium PCR Stl Sh Tox Pr E STEC PCR Stool E coli O157 PCR Stl Enterotoxigenic E PCR Stool EPEC (PCR) Stool EAEC (PCR) Stl E. histolytica PCR Stool Giardia Lamblia PCR Stl P. shigelloides PCR Stool Salmonella PCR Stool Sapovirus (PCR) Stl Shigella/EIEC PCR St Y.enterocolitica PCR Stool Vibrio (PCR) Stl Vibrio cholerae PCR Stl Norovirus GI/GII PCR C. difficile Tox B Gene Influenza Type A (PCR) NEGATIVE Influenza Type B (PCR) NEGATIVE RSV RNA Qual (PCR) NEGATIVE SARS-CoV-2 RNA (RT-PCR) NEGATIVE 01/18/24 01/18/24 01/19/24 15:14 23:10 05:14 Anion Gap 15 Estim Creat Clear Calc 77.8 Estimated GFR > 60 Random Glucose 118 H Lactic Acid 0.8 Calcium 8.2 L D Magnesium Total Bilirubin Direct Bilirubin AST ALT Alkaline Phosphatase Troponin I High Sens C-Reactive Protein Total Protein Albumin Lipase Urine Color Urine Appearance Urine pH Ur Specific [place] Urine Protein Urine Glucose (UA) Urine Ketones Urine Blood Urine Nitrite Ur Leukocyte Esterase Urine RBC Urine WBC Ur Squamous Epith Cells Urine Bacteria Hyaline Casts Stl C. cayetanensis PCR Not Detected Stool Rotavirus A PCR Not Detected Stl Adenov F 40/41 PCR Not Detected Stool Astrovirus (PCR) Not Detected Stool Campylobacter PCR Not Detected Stool Cryptosporidium PCR Not Detected Stl Sh Tox Pr E STEC PCR Not Detected Stool E coli O157 PCR Not applicable Stl Enterotoxigenic E PCR Not Detected Stool EPEC (PCR) Not Detected Stool EAEC (PCR) Not Detected Stl E. histolytica PCR Not Detected Stool Giardia Lamblia PCR Not Detected Stl P. shigelloides PCR Not Detected Stool Salmonella PCR Not Detected Stool Sapovirus (PCR) Not Detected Stl Shigella/EIEC PCR Not Detected St Y.enterocolitica PCR Not Detected Stool Vibrio (PCR) Not Detected Stl Vibrio cholerae PCR Not Detected Stl Norovirus GI/GII PCR Not Detected C. difficile Tox B Gene NEGATIVE Influenza Type A (PCR) Influenza Type B (PCR) RSV RNA Qual (PCR) SARS-CoV-2 RNA (RT-PCR) Microbiology Microbiology Results: Microbiology 01/18/24 Unknown Urine Culture - Preliminary Urine clean catch - Urine edmondson top Gram negative kar Procedures Date of Service Date of Service: 01/19/24 Progress Note: A&P Assessment and plan (1) Abdominal pain: Status: Acute (2) Crohn's colitis: Status: Acute Plan Patient would like to attempt clear liquids. No acute surgical issues at this time. Advanced diet as tolerated. We will follow up p.r.n.. Time Spent With Patient Time: Total time managing care of this patient today ____ minutes. Quality Stroke Does the patient have a stroke diagnosis?: No VTE Prior VTE?: No VTE Risk Level:: Medical - moderate - high VTE Device Contraindication: Treatment Not Indicated VTE Drug Contraindication: N/A - Med Ordered
[2024-01-19 12:01] LABS: SARS-CoV-2 PCR Not Detected (Not Detect.)
[2024-01-19] MEDS: cefTRIAXone sodium 1 GM in 0.9 % Sodium Chloride 50 ML IV (15:25)
[2024-01-19 15:32] VITALS: BP 111/57; PULSE 53; RESP 18; TEMP 36.4; O2SAT 94
--- NOTE | 2024-01-19 16:40 | P.PNIM_ITS ---
Subjective Subjective Date of Service: 01/19/24 Interval History: Abdominal pain Review of Systems abd pain seems somewhat improving has some diarrhae no fever or chills Physical Exam 2 Vital Signs: Vital Signs: Last Vital Signs Temp 97.5 F 01/19/24 15:32 Pulse 53 01/19/24 15:32 Resp 18 01/19/24 15:32 BP 111/57 L 01/19/24 15:32 Pulse Ox 94 01/19/24 15:32 O2 Del Method Room Air 01/19/24 15:32 O2 Flow Rate 2 01/19/24 06:49 BMI result Body Mass Index 31.2 Appearance: Alert.? Oriented X3.? cvs: rrr, [id number] , no murmur res: clear to auscultation ,no rhonchii or wheezing abd: no rebound or guarding ,mild tenderness diffuse , bs present. ext pulses present , no cyanosis . neuro: axo3 , nonfocal. Objective Data Active Medications Acetaminophen (Acetaminophen 325 Mg Tablet) 650 mg PO Q6H PRN PRN Reason: Pain, Mild (Pain Scale 1-3) Benzonatate (Benzonatate 100 Mg Capsule) 100 mg PO TID PRN PRN Reason: Cough Enoxaparin Sodium (Enoxaparin Sodium 40 Mg/0.4 Ml Syringe) 40 mg SUBCUT Q24H [facility] Last Admin: 01/18/24 18:24 Dose: 40 mg Documented By: HARPREET Sodium Chloride (Ns) 1,000 mls @ 100 mls/hr IVCONT .Q10H [facility] Last Admin: 01/19/24 10:33 Dose: 100 mls/hr Documented By: NISHANT Azithromycin 500 mg/ Sodium (Chloride) 250 mls @ 125 mls/hr IV Q24H [facility] Ceftriaxone Sodium 1 gm/ (Sodium Chloride) 50 mls @ 100 mls/hr IV Q24H [facility] Last Infusion: 01/19/24 16:21 Dose: Infused Documented By: NISHANT Levothyroxine Sodium (Levothyroxine Sodium 88 Mcg Tablet) 88 mcg PO DAILY@0600 [facility] Last Admin: 01/19/24 05:52 Dose: 88 mcg Documented By: BRIANA Loratadine (Loratadine 10 Mg Tablet) 10 mg PO DAILY PRN PRN Reason: allergy symptoms Melatonin (Melatonin 3 Mg Tablet) 6 mg PO BEDTIME PRN PRN Reason: Insomnia Mesalamine (Mesalamine 250 Mg Capsule.Er) 1,000 mg PO QID [facility] Last Admin: 01/19/24 14:06 Dose: 1,000 mg Documented By: NISHANT Methylprednisolone Sodium Succinate (Methylprednisolone Sod Succ 40 Mg/Ml Vial) 20 mg IVPUSH TID [facility] Last Admin: 01/19/24 14:35 Dose: 20 mg Documented By: NISHANT Mirabegron (Mirabegron 25 Mg Tab.Er.24h) 25 mg PO DAILY [facility] Last Admin: 01/19/24 08:00 Dose: 25 mg Documented By: NISHANT Morphine Sulfate (Morphine Sulfate 4 Mg/Ml Cartridge) 4 mg IVPUSH Q4H PRN; Protocol PRN Reason: Pain, Severe (Pain Scale 7-10) Last Admin: 01/19/24 14:11 Dose: 4 mg Documented By: NISHANT Omeprazole (Omeprazole 20 Mg Capsule.Dr) 20 mg PO DAILY@0630 [facility] Last Admin: 01/19/24 05:52 Dose: 20 mg Documented By: BRIANA Ondansetron HCl (Ondansetron Hcl 4 Mg/2 Ml Vial) 4 mg IVPUSH Q8H PRN PRN Reason: Nausea and Vomiting Sodium Chloride (0.9 % Sodium Chloride Flush 3 Ml Syringe) 3 ml IVFLUSH QSHIFT [facility] Last Admin: 01/19/24 08:02 Dose: Not Given Documented By: NISHATN Non-Admin Reason: IV Running Labs 01/18/24 11:07 01/19/24 05:14 Labs: Laboratory Results - last 24 hr 01/18/24 01/18/24 01/19/24 18:16 23:10 05:14 Anion Gap 15 Estim Creat Clear Calc 77.8 Estimated GFR > 60 Random Glucose 118 H Calcium 8.2 L D Stl C. cayetanensis PCR Not Detected Stool Rotavirus A PCR Not Detected Stl Adenov F 40/41 PCR Not Detected Stool Astrovirus (PCR) Not Detected Stool Campylobacter PCR Not Detected Stool Cryptosporidium PCR Not Detected Stl Sh Tox Pr E STEC PCR Not Detected Stool E coli O157 PCR Not applicable Stl Enterotoxigenic E PCR Not Detected Stool EPEC (PCR) Not Detected Stool EAEC (PCR) Not Detected Stl E. histolytica PCR Not Detected Stool Giardia Lamblia PCR Not Detected Stl P. shigelloides PCR Not Detected Stool Salmonella PCR Not Detected Stool Sapovirus (PCR) Not Detected Stl Shigella/EIEC PCR Not Detected St Y.enterocolitica PCR Not Detected Stool Vibrio (PCR) Not Detected Stl Vibrio cholerae PCR Not Detected Stl Norovirus GI/GII PCR Not Detected Respiratory Panel [place] See Note Adenovirus (Rapid PCR) Not Detected B.pert (TEM-PCR) Not Detected B.parapertussis DNA PCR Not Detected C. pneumoniae DNA (PCR) Not Detected C. difficile Tox B Gene NEGATIVE Coronavirus OC43 (PCR) Not Detected Coronavirus HKU1 (PCR) Not Detected Coronavirus 229E (PCR) Not Detected Coronavirus NL63 (PCR) Not Detected Human Metapneumovir PCR Not Detected Influenza A (RT-PCR) Not Detected Influenza B (RT-PCR) Not Detected M. pneumoniae (PCR) Not Detected Parainfluenza 1 (PCR) Not Detected Parainfluenza 2 (PCR) Not Detected Parainfluenza 3 (PCR) Detected A Parainfluenza 4 (PCR) Not Detected RSV (PCR) Not Detected Entero/Rhino (PCR) Not Detected SARS-CoV-2 RNA (RT-PCR) Not Detected Microbiology Microbiology Results: Microbiology 01/18/24 Unknown Urine Culture - Preliminary Urine clean catch - Urine edmondson top Gram negative kar Assessment and Plan (1) Pneumonia: Status: Acute (2) Vomiting: Status: Acute (3) Partial small bowel obstruction: Status: Acute Assessment and Plan: 63-year-old female with a PMH significant for?Crohn's disease with hx of partial colectomy in 2010, hypothyroidism, and GERD who presents to the ED for evaluation abdominal pain and diarrhea since yesterday. Pt will be admitted to the hospital for treatment and further evaluation of abdominal pain and diarrhea secondary to Crohn's flare vs SBO. Abdominal pain abd pain and diarrhea x2 days, no nausea or vomiting CT of abd/pelvis with dilated small bowel loops and discontinuous segments of small bowel wall thickening Concerning for Crohn's disease flare vs SBO GI panel, C diff-negative plan clear liquid diet continue IVF, analgesics for pain management, Solu-Medrol 20 mg t.i.d., Pentasa, ppi General surgery -no acute intervention GI consult-continue current management. Community acquired pneumonia CXR with right lower lobe pneumonia, patient with productive cough Patient does not meet sepsis criteria: No fever, tachycardia, tachypnea or leukocytosis Will treat with ceftriaxone and azithromycin, started 01/18/2024 URI symptoms Started 3 days prior respiratory panel-positive for parainfluenza. ? uti/Abnormal UA UA positive for nitrites, trace blood, 4+bacteria, negative for leukocyte esterase Pt asymptomatic: denies plyuria or dysuria Currently covered by ceftriaxone and azithromycin Follow cultures Hypothyroidism Continue levothyroxine Full Code DVT Prophylaxis: Lovenox ongoing hospitalization need for treatment of?intractable abdominal pain and diarrhea in the setting Crohn's disease flare vs SBO. Pt will require hospitalization for administration of IV steroids, IVF, and IV antibiotics, being placed on bowel rest, close monitoring of labs, and specialist consultation with GI and General surgery. Quality Stroke Does the patient have a stroke diagnosis?: No VTE Prior VTE?: No VTE Risk Level:: Medical - moderate - high VTE Device Contraindication: Treatment Not Indicated VTE Drug Contraindication: N/A - Med Ordered
[2024-01-19] MEDS: Azithromycin 500 MG in 0.9 % Sodium Chloride 250 ML 125 MG IV (16:41)
[2024-01-19] MEDS: Enoxaparin Sodium 40 MG/0.4 ML SYRINGE SUBCUT (17:49)
[2024-01-19 19:11] VITALS: BP 110/57; PULSE 60; RESP 18; TEMP 36.4; O2SAT 94
[2024-01-19] MEDS: 0.9 % Sodium Chloride Flush 3 ML SYRINGE IVFLUSH (20:45)
[2024-01-20 03:30] VITALS: BP 128/60; PULSE 57; RESP 18; TEMP 36.7; O2SAT 95
[2024-01-20] MEDS: 0.9 % Sodium Chloride 1,000 ML 100 ML IVCONT ×3 (06:02→23:07)
[2024-01-20] MEDS: Levothyroxine Sodium 88 MCG TABLET PO (06:02)
[2024-01-20] MEDS: Omeprazole 20 MG CAPSULE.DR PO (06:02)
[2024-01-20 07:27] VITALS: BP 124/57; PULSE 58; RESP 18; TEMP 36.5; O2SAT 92
[2024-01-20] MEDS: Mirabegron 25 MG TAB.ER.24H PO (08:28)
[2024-01-20] MEDS: 0.9 % Sodium Chloride Flush 3 ML SYRINGE IVFLUSH (08:28)
[2024-01-20] MEDS: methylPREDNISolone Sod Succ 40 MG/ML VIAL 20 MG IVPUSH ×3 (08:28→20:17)
[2024-01-20] MEDS: nitrofurantoin macrocrystaL 50 MG CAPSULE 100 MG PO ×2 (08:29→20:18)
[2024-01-20] MEDS: Mesalamine 250 MG CAPSULE.ER 1000 MG PO ×4 (08:29→20:17)
--- NOTE | 2024-01-20 11:02 | P.PNIM_ITS ---
Subjective Subjective Date of Service: 01/20/24 Interval History: pneumonia,parainfluenza ,?uti vs crohn flare Review of Systems abd pain, diarrahae Physical Exam 2 Vital Signs: Vital Signs: Last Vital Signs Temp 97.7 F 01/20/24 07:27 Pulse 58 01/20/24 07:27 Resp 18 01/20/24 07:27 BP 124/57 L 01/20/24 07:27 Pulse Ox 92 01/20/24 07:27 O2 Del Method Room Air 01/20/24 07:27 O2 Flow Rate 2 01/19/24 06:49 BMI result Body Mass Index 31.2 Appearance: Alert.? Oriented X3.? cvs: rrr, [id number] , no murmur res: clear to auscultation ,no rhonchii or wheezing abd: no rebound or guarding ,mild tenderness diffuse , bs present. ext pulses present , no cyanosis . neuro: axo3 , nonfocal. Objective Data Active Medications Acetaminophen (Acetaminophen 325 Mg Tablet) 650 mg PO Q6H PRN PRN Reason: Pain, Mild (Pain Scale 1-3) Benzonatate (Benzonatate 100 Mg Capsule) 100 mg PO TID PRN PRN Reason: Cough Enoxaparin Sodium (Enoxaparin Sodium 40 Mg/0.4 Ml Syringe) 40 mg SUBCUT Q24H [facility] Last Admin: 01/19/24 17:49 Dose: 40 mg Documented By: NISHANT Sodium Chloride (Ns) 1,000 mls @ 100 mls/hr IVCONT .Q10H [facility] Last Admin: 01/20/24 06:02 Dose: 100 mls/hr Documented By: BRIANA Azithromycin 500 mg/ Sodium (Chloride) 250 mls @ 125 mls/hr IV Q24H [facility] Last Infusion: 01/19/24 18:41 Dose: Infused Documented By: NISHANT Ceftriaxone Sodium 1 gm/ (Sodium Chloride) 50 mls @ 100 mls/hr IV Q24H [facility] Last Infusion: 01/19/24 16:21 Dose: Infused Documented By: NISHANT Levothyroxine Sodium (Levothyroxine Sodium 88 Mcg Tablet) 88 mcg PO DAILY@0600 [facility] Last Admin: 01/20/24 06:02 Dose: 88 mcg Documented By: BRIANA Loratadine (Loratadine 10 Mg Tablet) 10 mg PO DAILY PRN PRN Reason: allergy symptoms Melatonin (Melatonin 3 Mg Tablet) 6 mg PO BEDTIME PRN PRN Reason: Insomnia Mesalamine (Mesalamine 250 Mg Capsule.Er) 1,000 mg PO QID [facility] Last Admin: 01/20/24 08:29 Dose: 1,000 mg Documented By: GARFIELD Methylprednisolone Sodium Succinate (Methylprednisolone Sod Succ 40 Mg/Ml Vial) 20 mg IVPUSH TID [facility] Last Admin: 01/20/24 08:28 Dose: 20 mg Documented By: GARFIELD Mirabegron (Mirabegron 25 Mg Tab.Er.24h) 25 mg PO DAILY [facility] Last Admin: 01/20/24 08:28 Dose: 25 mg Documented By: GARFIELD Morphine Sulfate (Morphine Sulfate 4 Mg/Ml Cartridge) 4 mg IVPUSH Q4H PRN; Protocol PRN Reason: Pain, Severe (Pain Scale 7-10) Last Admin: 01/19/24 21:42 Dose: 4 mg Documented By: BRIANA Nitrofurantoin Macrocrystals (Nitrofurantoin Macrocrystal 50 Mg Capsule) 100 mg PO BID [facility] Last Admin: 01/20/24 08:29 Dose: 100 mg Documented By: GARFIELD Omeprazole (Omeprazole 20 Mg Capsule.Dr) 20 mg PO DAILY@0630 [facility] Last Admin: 01/20/24 06:02 Dose: 20 mg Documented By: BRIANA Ondansetron HCl (Ondansetron Hcl 4 Mg/2 Ml Vial) 4 mg IVPUSH Q8H PRN PRN Reason: Nausea and Vomiting Sodium Chloride (0.9 % Sodium Chloride Flush 3 Ml Syringe) 3 ml IVFLUSH QSHIFT [facility] Last Admin: 01/20/24 08:28 Dose: 3 ml Documented By: GARFIELD Labs 01/18/24 11:07 01/19/24 05:14 Labs: Laboratory Results - last 24 hr 01/18/24 18:16 Respiratory Panel [place] See Note Adenovirus (Rapid PCR) Not Detected B.pert (TEM-PCR) Not Detected B.parapertussis DNA PCR Not Detected C. pneumoniae DNA (PCR) Not Detected Coronavirus OC43 (PCR) Not Detected Coronavirus HKU1 (PCR) Not Detected Coronavirus 229E (PCR) Not Detected Coronavirus NL63 (PCR) Not Detected Human Metapneumovir PCR Not Detected Influenza A (RT-PCR) Not Detected Influenza B (RT-PCR) Not Detected M. pneumoniae (PCR) Not Detected Parainfluenza 1 (PCR) Not Detected Parainfluenza 2 (PCR) Not Detected Parainfluenza 3 (PCR) Detected A Parainfluenza 4 (PCR) Not Detected RSV (PCR) Not Detected Entero/Rhino (PCR) Not Detected SARS-CoV-2 RNA (RT-PCR) Not Detected Microbiology Microbiology Results: Microbiology 01/18/24 Unknown Urine Culture - Preliminary Urine clean catch - Urine edmondson top Escherichia coli 01/18/24 15:14 Blood Culture - Preliminary Blood - Venous No growth after 24 hours. 01/18/24 15:14 Blood Culture - Preliminary Blood - Venous No growth after 24 hours. Assessment and Plan (1) Pneumonia: Status: Acute (2) Partial small bowel obstruction: Status: Acute (3) Abdominal pain: Status: Acute Assessment and Plan: 63-year-old female with a PMH significant for?Crohn's disease with hx of partial colectomy in 2010, hypothyroidism, and GERD who presents to the ED for evaluation abdominal pain and diarrhea since yesterday. Pt will be admitted to the hospital for treatment and further evaluation of abdominal pain and diarrhea secondary to Crohn's flare vs SBO. Abdominal pain abd pain and diarrhea x2 days, no nausea or vomiting CT of abd/pelvis with dilated small bowel loops and discontinuous segments of small bowel wall thickening Concerning for Crohn's disease flare vs SBO GI panel, C diff-negative plan clear full diet continue IV analgesics for pain management, Solu-Medrol 20 mg t.i.d., Pentasa, ppi General surgery -no acute intervention GI consult-continue current management. Community acquired pneumonia CXR with right lower lobe pneumonia, patient with productive cough Patient does not meet sepsis criteria: No fever, tachycardia, tachypnea or leukocytosis Will treat with ceftriaxone and azithromycin, started 01/18/2024 URI symptoms Started 3 days prior respiratory panel-positive for parainfluenza. ? uti/Abnormal UA UA positive for nitrites, trace blood, 4+bacteria, negative for leukocyte esterase Pt asymptomatic: denies plyuria or dysuria added microbid Follow cultures Hypothyroidism Continue levothyroxine Full Code DVT Prophylaxis: Lovenox ongoing hospitalization need for treatment of?intractable abdominal pain and diarrhea in the setting Crohn's disease flare vs SBO. Pt will require hospitalization for administration of IV steroids, IVF, and IV antibiotics, being placed on bowel rest, close monitoring of labs, and specialist consultation with GI and General surgery. Quality Stroke Does the patient have a stroke diagnosis?: No VTE Prior VTE?: No VTE Risk Level:: Medical - moderate - high VTE Device Contraindication: Treatment Not Indicated VTE Drug Contraindication: N/A - Med Ordered
[2024-01-20 12:48] VITALS: RESP 20
[2024-01-20] MEDS: Morphine Sulfate 4 MG/ML CARTRIDGE IVPUSH ×2 (12:48→17:31)
--- NOTE | 2024-01-20 13:46 | P.CNID_ITS ---
History of Present Illness Data of Consult Service Date: 01/20/24 Requesting physician: Leo Carrera Primary Care Provider: Yuli Garner MD HPI Reason for consult: cough and dizziness She presents with six days rhinorrhea and cough and then diarrhea. She became dizzy trying to get into bed and then fell. She fell on back and feels well now from that. SHe has RLL pneumonia and panel shows H paraflu. No one else is ill (lives with cousin). She has no urinary symptoms. Stool no pathogens. Review of Systems 2 Review of Systems: Yes all other systems are reviewed and are negative [facility] Past Medical History Medical History Dyslipidemia Impaired fasting glucose History of COVID-19 GERD (gastroesophageal reflux disease) COVID-19 Morbid obesity Hyperparathyroidism Overactive bladder Upper back pain, chronic Large breasts Vitamin D deficiency Osteoporosis Postmenopause History of shingles Acquired hypothyroidism RLS (restless legs syndrome) Family History Family History Father Lung cancer Mother Diabetes Hypertension Sister No problems noted. Mother Diabetes Paternal Grandmother Diabetes Father Lung cancer Paternal Uncle Lung cancer Family history: reviewed and not pertinent Surgical History Surgical History Hx of sigmoidoscopy Hx of reduction mammoplasty History of bowel resection History of esophagogastroduodenoscopy Hx of colonoscopy Hx of cholecystectomy Hx of tonsillectomy History of appendectomy H/O partial resection of colon Social History Social History Household Members: Family Housing: House Are you a primary pet care associate to a significant other at home: No Do you presently have visiting nurse or other home services: No Alcohol intake: current Alcohol intake frequency: holidays/special occasions only Patient Tobacco Use Status: Never used Tobacco Smoked in Last 30 Days: No e-Cigarette/Vaping Use: Never Used Second Hand Smoke Exposure: No Use of substances other than those prescribed or required for medical reasons: No Currently Displaying Signs/Symptoms of Drug Intoxication Withdrawal: No Have you been hit, kicked, punched, or otherwise hurt by someone within the past year? If so, by whom?: No Do you feel safe in your current relationship?: No Current Relationship Is there a partner from a previous relationship who is making you feel unsafe now?: No Are you made to feel afraid or neglected: No Advance Directives: Yes Advance Directives on File: Yes Advance Directives Date on File: 05/31/22 Do you have a plan to hurt others: No Plan Recently lost weight without trying: No Eating poorly because of decreased appetite: No Nutrition Risks: No Nutritional Risk Patient : No : No Poor oral hygiene: No service: No Current occupational status: unemployed and disabled Current occupation: [employer] Cognitive needs: No Hearing needs: No Vision needs: Yes Meds Allergies Allergy/AdvReac Type Severity Reaction Status Date / Time No Known Allergies Allergy Verified 01/18/24 10:37 [No Known Allergies*] Active Medications: Current Medications Acetaminophen (Acetaminophen 325 Mg Tablet) 650 mg PO Q6H PRN PRN Reason: Pain, Mild (Pain Scale 1-3) Benzonatate (Benzonatate 100 Mg Capsule) 100 mg PO TID PRN PRN Reason: Cough Enoxaparin Sodium (Enoxaparin Sodium 40 Mg/0.4 Ml Syringe) 40 mg SUBCUT Q24H [facility] Last Admin: 01/19/24 17:49 Dose: 40 mg Sodium Chloride (Ns) 1,000 mls @ 100 mls/hr IVCONT .Q10H [facility] Last Admin: 01/20/24 06:02 Dose: 100 mls/hr Azithromycin 500 mg/ Sodium (Chloride) 250 mls @ 125 mls/hr IV Q24H [facility] Last Infusion: 01/19/24 18:41 Dose: Infused Ceftriaxone Sodium 1 gm/ (Sodium Chloride) 50 mls @ 100 mls/hr IV Q24H [facility] Last Infusion: 01/19/24 16:21 Dose: Infused Levothyroxine Sodium (Levothyroxine Sodium 88 Mcg Tablet) 88 mcg PO DAILY@0600 [facility] Last Admin: 01/20/24 06:02 Dose: 88 mcg Loratadine (Loratadine 10 Mg Tablet) 10 mg PO DAILY PRN PRN Reason: allergy symptoms Melatonin (Melatonin 3 Mg Tablet) 6 mg PO BEDTIME PRN PRN Reason: Insomnia Mesalamine (Mesalamine 250 Mg Capsule.Er) 1,000 mg PO QID [facility] Last Admin: 01/20/24 12:48 Dose: 1,000 mg Methylprednisolone Sodium Succinate (Methylprednisolone Sod Succ 40 Mg/Ml Vial) 20 mg IVPUSH TID [facility] Last Admin: 01/20/24 08:28 Dose: 20 mg Mirabegron (Mirabegron 25 Mg Tab.Er.24h) 25 mg PO DAILY [facility] Last Admin: 01/20/24 08:28 Dose: 25 mg Morphine Sulfate (Morphine Sulfate 4 Mg/Ml Cartridge) 4 mg IVPUSH Q4H PRN; Protocol PRN Reason: Pain, Severe (Pain Scale 7-10) Last Admin: 01/20/24 12:48 Dose: 4 mg Nitrofurantoin Macrocrystals (Nitrofurantoin Macrocrystal 50 Mg Capsule) 100 mg PO BID [facility] Last Admin: 01/20/24 08:29 Dose: 100 mg Omeprazole (Omeprazole 20 Mg Capsule.Dr) 20 mg PO DAILY@0630 [facility] Last Admin: 01/20/24 06:02 Dose: 20 mg Ondansetron HCl (Ondansetron Hcl 4 Mg/2 Ml Vial) 4 mg IVPUSH Q8H PRN PRN Reason: Nausea and Vomiting Sodium Chloride (0.9 % Sodium Chloride Flush 3 Ml Syringe) 3 ml IVFLUSH QSHIFT [facility] Last Admin: 01/20/24 08:28 Dose: 3 ml Home Medications ?Medication ?Instructions ?Recorded ?Confirmed ?Last Taken ?Type cholecalciferol (vitamin D3) 250 250 mcg PO MOFR 01/18/24 01/18/24 01/15/24 History mcg (10,000 unit) capsule mirabegron 25 mg tablet,extended 25 mg PO DAILY 01/18/24 01/18/24 01/18/24 History release 24 hr (Myrbetriq) Physical Exam 2 Vital Signs: Vital Signs: Last Vital Signs Temp 97.7 F 01/20/24 07:27 Pulse 58 01/20/24 07:27 Resp 20 01/20/24 12:48 BP 124/57 L 01/20/24 07:27 Pulse Ox 92 01/20/24 07:27 O2 Del Method Room Air 01/20/24 07:27 O2 Flow Rate 2 01/19/24 06:49 BMI result Body Mass Index 31.2 Const: General: cooperative HEENT: Head: Yes normal to inspection Face and sinus: Yes normal facial exam Mouth: Normal oral and palatal mucosa present Teeth and gingiva: d entition normal Eyes: General: appearance normal, both eyes and all related structures P upils: Equal, round and reactive pupils present Resp: Other: rhonchi,egophony right base Effort & Inspection: normal respiratory effort Cardio: Rate: regular rate Rhythm: regular rhythm GI: Palpation (GI): Soft to palpation and nontender : General: Yes no CVA tenderness Back/Spine/Pelvis: Back: no CVA tenderness Skin: General skin exam: no rashes or lesions noted Neuro: General: moves all extremities Cranial nerves: Yes Equal, round and reactive pupils present Extrem: General: Yes normal to inspection Psych: Appearance: grossly normal Results Labs 01/18/24 11:07 01/19/24 05:14 Microbiology Microbiology Results: Microbiology 01/18/24 Unknown Urine clean catch - Urine edmondson top Urine Culture - Preliminary Escherichia coli 01/18/24 15:14 Blood - Venous Blood Culture - Preliminary No growth after 24 hours. 01/18/24 15:14 Blood - Venous Blood Culture - Preliminary No growth after 24 hours. Assessment and Plan (1) Pneumonia: Qualifiers: Laterality: right Lung location: lower lobe of lung Pneumonia type: d ue to unspecified organism Qualified Code(s): J18.9 - Pneumonia, unspecified organism Status: Acute (2) Partial small bowel obstruction: Status: Acute (3) Crohn's colitis: Qualifiers: Digestive disease complication type: unspecified complication Qualified Code(s): K50.119 - Crohn's disease of large intestine with unspecified complications Status: Acute Plan She has parainfluenza virus which may be cause of pneumonia,especially with viral rhinorrhea prodrome and is immunosuppressed. There is no specific treatment for this. However bacterial organisms can coexist and follow it. Ceftriaxone and azithromycin seem appropriate. There are not and have not been any urinary symptoms so no UTI rx. 3-5 d IV antibiotics and then po cephalosporin complete 8 d course. Check urine Legionella and strep pneumonia. Droplet precautions seem appropriate.
--- NOTE | 2024-01-20 14:05 | PM.EVENT ---
Event Note Date of Service: 01/20/24 Event Note: She also has scalp lesion left present 10 years. Per [facility] biopsy inflammation and scarring. 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 She also took mupiocin and antibacterial soap. Time Spent With Patient Time: Total time managing care of this patient today ____ minutes.
[2024-01-20 15:15] VITALS: BP 162/75; PULSE 62; RESP 18; TEMP 36.7; O2SAT 95
[2024-01-20] MEDS: Benzonatate 100 MG CAPSULE PO (15:54)
[2024-01-20] MEDS: Acetaminophen 325 MG TABLET 650 MG PO (15:54)
[2024-01-20] MEDS: cefTRIAXone sodium 1 GM in 0.9 % Sodium Chloride 50 ML IV (15:55)
[2024-01-20] MEDS: Azithromycin 500 MG in 0.9 % Sodium Chloride 250 ML 125 MG IV (17:29)
[2024-01-20] MEDS: Enoxaparin Sodium 40 MG/0.4 ML SYRINGE SUBCUT (17:31)
[2024-01-20 19:15] VITALS: BP 125/61; PULSE 69; RESP 16; TEMP 36.8; O2SAT 95
[2024-01-21 04:00] VITALS: BP 139/64; PULSE 64; RESP 18; TEMP 36.7; O2SAT 92
[2024-01-21] MEDS: Levothyroxine Sodium 88 MCG TABLET PO (06:13)
[2024-01-21] MEDS: Omeprazole 20 MG CAPSULE.DR PO (06:13)
[2024-01-21 07:55] VITALS: BP 170/77; PULSE 62; RESP 18; TEMP 36.6; O2SAT 94
[2024-01-21 08:31] LABS: MRSA Nasal PCR NEGATIVE (Negative); SA Nasal PCR POSITIVE (Negative)
[2024-01-21] MEDS: guaiFEN/Codeine SF 200/20/10ML 10 ML LIQUID PO ×4 (09:21→20:54)
[2024-01-21] MEDS: Lidocaine 4 % Patch ADH..PATCH 1 PATCH TRANSDERMA (09:21)
[2024-01-21] MEDS: nitrofurantoin macrocrystaL 50 MG CAPSULE 100 MG PO (09:22)
[2024-01-21] MEDS: Mirabegron 25 MG TAB.ER.24H PO (09:23)
[2024-01-21] MEDS: Mesalamine 250 MG CAPSULE.ER 1000 MG PO ×4 (09:23→20:55)
[2024-01-21] MEDS: Benzonatate 100 MG CAPSULE PO (09:23)
[2024-01-21] MEDS: methylPREDNISolone Sod Succ 40 MG/ML VIAL 20 MG IVPUSH ×2 (09:27→20:55)
[2024-01-21] MEDS: Acetaminophen 325 MG TABLET 650 MG PO (09:58)
--- NOTE | 2024-01-21 12:47 | P.PNIM_ITS ---
Subjective Subjective Date of Service: 01/21/24 Interval History: uc flare pneumonia Review of Systems abd pain improving has some discomfort with coughing no fever Physical Exam 2 Vital Signs: Vital Signs: Last Vital Signs Temp 97.8 F 01/21/24 07:55 Pulse 62 01/21/24 07:55 Resp 18 01/21/24 07:55 BP 170/77 H 01/21/24 07:55 Pulse Ox 94 01/21/24 07:55 O2 Del Method Room Air 01/21/24 07:55 O2 Flow Rate 2 01/19/24 06:49 BMI result Body Mass Index 31.2 Appearance: Alert.? Oriented X3.? cvs: rrr, [id number] , no murmur res: clear to auscultation ,no rhonchii or wheezing abd: no rebound or guarding ,mild tenderness diffuse , bs present. ext pulses present , no cyanosis . neuro: axo3 , nonfocal. Objective Data Active Medications Acetaminophen (Acetaminophen 325 Mg Tablet) 650 mg PO Q6H PRN PRN Reason: Pain, Mild (Pain Scale 1-3) Last Admin: 01/21/24 09:58 Dose: 650 mg Documented By: GARFIELD Benzonatate (Benzonatate 100 Mg Capsule) 100 mg PO TID PRN PRN Reason: Cough Last Admin: 01/21/24 09:23 Dose: 100 mg Documented By: GARFIELD Enoxaparin Sodium (Enoxaparin Sodium 40 Mg/0.4 Ml Syringe) 40 mg SUBCUT Q24H FOR[facility], [facility] Last Admin: 01/20/24 17:31 Dose: 40 mg Documented By: GARFIELD Guaifenesin/Codeine Phosphate (Guaifen/Codeine Sf 200/20/10ml 10 Ml Liquid) 10 ml PO Q4H [facility], [facility]1983 Last Admin: 01/21/24 09:21 Dose: 10 ml Documented By: GARFIELD Azithromycin 500 mg/ Sodium (Chloride) 250 mls @ 125 mls/hr IV Q24H FOR[facility], [facility]1983 Last Infusion: 01/20/24 19:45 Dose: Infused Documented By: BRIANA Ceftriaxone Sodium 1 gm/ (Sodium Chloride) 50 mls @ 100 mls/hr IV Q24H [facility], [facility]1983 Last Infusion: 01/20/24 16:36 Dose: Infused Documented By: GARFIELD Levothyroxine Sodium (Levothyroxine Sodium 88 Mcg Tablet) 88 mcg PO DAILY@0600 FOR[facility], [facility] Last Admin: 01/21/24 06:13 Dose: 88 mcg Documented By: BRIANA Lidocaine (Lidocaine 4 % Patch Adh..Patch) 1 patch TRANSDERMA DAILY FORMERLY [facility], [facility]1983; Protocol Last Admin: 01/21/24 09:21 Dose: 1 patch Documented By: GARFIELD Loratadine (Loratadine 10 Mg Tablet) 10 mg PO DAILY PRN PRN Reason: allergy symptoms Melatonin (Melatonin 3 Mg Tablet) 6 mg PO BEDTIME PRN PRN Reason: Insomnia Mesalamine (Mesalamine 250 Mg Capsule.Er) 1,000 mg PO QID [facility], [facility] Last Admin: 01/21/24 09:23 Dose: 1,000 mg Documented By: GARFIELD Methylprednisolone Sodium Succinate (Methylprednisolone Sod Succ 40 Mg/Ml Vial) 20 mg IVPUSH BID [facility], [facility] Last Admin: 01/21/24 09:27 Dose: 20 mg Documented By: GARFIELD Mirabegron (Mirabegron 25 Mg Tab.Er.24h) 25 mg PO DAILY [facility], [facility] Last Admin: 01/21/24 09:23 Dose: 25 mg Documented By: GARFIELD Nitrofurantoin Macrocrystals (Nitrofurantoin Macrocrystal 50 Mg Capsule) 100 mg PO BID [facility], [facility] Last Admin: 01/21/24 09:22 Dose: 100 mg Documented By: GARFIELD Omeprazole (Omeprazole 20 Mg Capsule.Dr) 20 mg PO DAILY@0630 [facility], [facility] Last Admin: 01/21/24 06:13 Dose: 20 mg Documented By: BRIANA Ondansetron HCl (Ondansetron Hcl 4 Mg/2 Ml Vial) 4 mg IVPUSH Q8H PRN PRN Reason: Nausea and Vomiting Sodium Chloride (0.9 % Sodium Chloride Flush 3 Ml Syringe) 3 ml IVFLUSH QSHIFT [facility], [facility] Last Admin: 01/21/24 07:32 Dose: Not Given Documented By: GARFIELD Non-Admin Reason: IV Running Labs 01/18/24 11:07 01/19/24 05:14 Labs: Laboratory Results - last 24 hr 01/20/24 16:36 Nasal Screen MRSA (PCR) NEGATIVE Nasal S. aureus Screen POSITIVE A Nasal MRSA/S.aureus Interp SEE NOTE Microbiology Microbiology Results: Microbiology 01/18/24 Unknown Urine Culture - Final Urine clean catch - Urine edmondson top Escherichia coli 01/18/24 15:14 Blood Culture - Preliminary Blood - Venous No growth after 48 hours. 01/18/24 15:14 Blood Culture - Preliminary Blood - Venous No growth after 48 hours. Assessment and Plan (1) Pneumonia: Status: Acute (2) Partial small bowel obstruction: Status: Acute (3) Abdominal pain: Status: Acute Assessment and Plan: 63-year-old female with a PMH significant for?Crohn's disease with hx of partial colectomy in 2010, hypothyroidism, and GERD who presents to the ED for evaluation abdominal pain and diarrhea since yesterday. Pt will be admitted to the hospital for treatment and further evaluation of abdominal pain and diarrhea secondary to Crohn's flare vs SBO. Abdominal pain abd pain and diarrhea x2 days, no nausea or vomiting CT of abd/pelvis with dilated small bowel loops and discontinuous segments of small bowel wall thickening Concerning for Crohn's disease flare vs SBO GI panel, C diff-negative plan trail of regular diet continue IV analgesics for pain management, Solu-Medrol 20 mg bid ., Pentasa, ppi General surgery -no acute intervention GI consult-continue current management. Community acquired pneumonia CXR with right lower lobe pneumonia, patient with productive cough Patient does not meet sepsis criteria: No fever, tachycardia, tachypnea or leukocytosis continue with ceftriaxone and azithromycin, started 01/18/2024, hycodan , loratidine. URI symptoms Started 3 days prior respiratory panel-positive for parainfluenza. Abnormal UA UA positive for nitrites, trace blood, 4+bacteria, negative for leukocyte esterase Pt asymptomatic: denies plyuria or dysuria urine culture -ecoli d/w Id -no need for antibiotics for possible asymptomatic bacteruria/pyuria. Hypothyroidism Continue levothyroxine Full Code DVT Prophylaxis: Lovenox ongoing hospitalization need for treatment of?intractable abdominal pain and diarrhea in the setting Crohn's disease flare . Pt will require hospitalization for administration of IV steroids, IVF, and IV antibiotics, being placed on bowel rest, close monitoring of labs, and with GI follow up. Quality Stroke Does the patient have a stroke diagnosis?: No VTE Prior VTE?: No VTE Risk Level:: Medical - moderate - high VTE Device Contraindication: Treatment Not Indicated VTE Drug Contraindication: N/A - Med Ordered
[2024-01-21 15:02] VITALS: BP 129/63; PULSE 67; RESP 18; TEMP 36.6; O2SAT 98
[2024-01-21] MEDS: 0.9 % Sodium Chloride Flush 3 ML SYRINGE IVFLUSH ×2 (17:04→20:55)
[2024-01-21] MEDS: cefTRIAXone sodium 1 GM in 0.9 % Sodium Chloride 50 ML IV (17:04)
[2024-01-21] MEDS: Enoxaparin Sodium 40 MG/0.4 ML SYRINGE SUBCUT (17:05)
[2024-01-21] MEDS: Azithromycin 500 MG in 0.9 % Sodium Chloride 250 ML 125 MG IV (17:51)
[2024-01-21 19:45] VITALS: BP 151/70; PULSE 66; RESP 18; TEMP 36.1; O2SAT 97
[2024-01-22] MEDS: guaiFEN/Codeine SF 200/20/10ML 10 ML LIQUID PO ×3 (01:12→07:59)
[2024-01-22] MEDS: Melatonin 3 MG TABLET 6 MG PO (01:14)
[2024-01-22 04:00] VITALS: BP 165/77; PULSE 61; RESP 16; TEMP 36.7; O2SAT 92
[2024-01-22] MEDS: Levothyroxine Sodium 88 MCG TABLET PO (05:27)
[2024-01-22] MEDS: Omeprazole 20 MG CAPSULE.DR PO (05:27)
[2024-01-22 07:32] VITALS: BP 153/70; PULSE 54; RESP 14; TEMP 36.9; O2SAT 95
[2024-01-22] MEDS: Loratadine 10 MG TABLET PO (07:59)
[2024-01-22] MEDS: predniSONE 20 MG TABLET 40 MG PO (07:59)
[2024-01-22] MEDS: Lidocaine 4 % Patch ADH..PATCH 1 PATCH TRANSDERMA (07:59)
[2024-01-22] MEDS: Mirabegron 25 MG TAB.ER.24H PO (07:59)
[2024-01-22 08:56] LABS: Anion Gap 14 (12-20); Blood Urea Nitrogen 16 mg/dL (9-16); Calcium 8.7 mg/dL (8.4-10.2); Carbon Dioxide 22 mmol/L (22-29); Chloride 110 mmol/L (96-108); Creatinine Clr Calc Pharmacy 69.4; Estimated Glomerular Filt Rate > 60; Glucose Random 134 mg/dL (60-115); Potassium 3.5 mmol/L (3.3-5.1); Sodium 142 mmol/L (135-145)
[2024-01-22] MEDS: Mesalamine 250 MG CAPSULE.ER 1000 MG PO (08:59)
--- NOTE | 2024-01-22 11:44 | MHC.CM.PN ---
DP: PT HAS BEEN MEDICALLY CLEARED FOR DC HOME, NO SERVICES. PT HAS OWN RIDE HOME
--- NOTE | 2024-01-22 11:48 | P.DS_ITS ---
DS: Providers Provider Date of Service: 01/22/24 Date of admission: 01/18/24 16:19 Date of discharge: 01/22/24 Primary care physician: Yuli Garner MD Consults: 01/18/24 14:38 Consult to Gastroenterology Stat Consulting Provider: Chelsie Navas Reason for consultation: Crohns flare Has provider been notified: Yes 01/18/24 16:24 Consult to General Surgery Routine Consulting Provider: [facility] General Surgeons Reason for consultation: Crohn's flare vs SBO 01/20/24 07:37 Consult to Infectious Diseases Routine Consulting Provider: [facility] Infectious Disease Reason for consultation: pneumonia /uti Attending physician on discharge: Leo Carrera Discharging clinician: Leo Carrera DS: Diagnosis Discharge Diagnosis (1) Pneumonia: Status: Acute (2) Partial small bowel obstruction: Status: Acute (3) Abdominal pain: Status: Acute DS: Summary Hospital Course Hospital Course: 63-year-old female with a PMH significant for?Crohn's disease with hx of partial colectomy in 2010, hypothyroidism, and GERD who presents to the ED for evaluation abdominal pain and diarrhea since yesterday. Patient reports having URI-like symptoms starting Monday: Rhinorrhea, sore throat, cough productive of whitish sputum, subjective fever and chills, and diffuse whole body achiness. Denies any sick contacts. Yesterday also began experiencing worsening abdominal pain and non-bloody diarrhea. Reports feeling lightheaded and dizzy after using the bathroom, and then falling to the floor when she missed the bed. Denies LOC or headstrike, but hit her back on the nightstand. Presented to the ED today when abdominal pain persisted this morning. Reports some chest tightness that resolved with sitting up in recliner. Denies nausea or vomiting. No SOB or BURR. In the ED pt was hypertensive up to 150/71, vitals otherwise WNL. Labs were significant for elevated creatinine 1.21 (up from 0.89 on 08/30/23), and C- reactive protein 3.63, otherwise grossly unremarkable. No leukocytosis. Stable H&H. No significant electrolyte abnormalities. Troponin negative. Hepatic function WNL. Lactic acid WNL at 1.4. CXR showed right lower lobe pneumonia. CT?of abdomen and pelvis showed dilated loops of small bowel possibly representing SBO, as well as discontinuous segments of small bowel wall thickening with mesenteric hyperemia and fluid in colon and rectum, possibly reflecting Crohn's disease. EKG demonstrated normal sinus rhythm with nonspecific T-wave abnormality but no evidence of significant ST elevations or depressions. Pt was treated with IVF, ondansetron, morphine, hydromorphone, ceftriaxone, azithromycin, and Solu-Medrol. Pt will be admitted to the hospital for treatment and further evaluation of abdominal pain and diarrhea secondary to Crohn's flare vs SBO. Hospital course: Patient was admitted to the hospital for abdominal pain and diarrhea, also feel congested and URI like symptoms: Further workup no leukocytosis, no fever, ct abd showed possible partial bowel obstruction vs crohn flare -initially started on bowel rest, IV hydration, pain management, IV [id number] was seen by GI -seems to be improving, pain improved, no leukocytosis, no fever, tolerating diet, passing bowels and flatus. GI recommended to switch to po 40 mg daily of prednisone and taper by 10 mg every week over 4 weeks. Patient was also seen by surgery:less likely psbo-passing bm's ,tolerating diet ,improved with iv steriods ,Kub also shows interval improving bowel changes (please see imaging section for details). pneumonia :switched to ceftin 500 mg po bid and doxycycline 100 mg po bid for 5 more days. also positive for parainfluenza URI. please consider repeat chest imaging in 3-4 weeks to see resolution of pneumonia. Abnormal UA UA positive for nitrites, trace blood, 4+bacteria, negative for leukocyte esterase Pt asymptomatic: denies plyuria or dysuria urine culture -ecoli d/w Id -no need for antibiotics for possible asymptomatic bacteruria/pyuria. Obesity: Encouraged to lose weight and cutdown calories. Patient is to follow-up with GI and PCP outpatient. plan: complete ceftin 500 mg po bid and doxycycline 100 mg po bid for 5 more days. please consider repeat chest imaging in 3-4 weeks to see resolution of pneumonia. GI recommended to switch to po 40 mg daily of prednisone and taper by 10 mg every week over 4 weeks. Above management discussed with the patient in detail length she understand and in agreement with the above plan, time spent 40 minutes and 50% time spent on counseling. Time Attestation Total time managing care of this patient today: 40 mintues. Discharge Coordination Time (in mins): 40 min Quality: Safe Use of Opioids Does Pt have an Active Cancer Diagnosis on the Problem List?: Yes Opioid Measure Date for [facility] Report: 12/23/23 Opioid Measure Time for [facility] Report: 11:57 Quality: Stroke Does the patient have a stroke diagnosis?: No Physical Exam Vital Signs: Vital Signs: Last Vital Signs Temp 98.4 F 01/22/24 07:32 Pulse 54 01/22/24 07:32 Resp 14 01/22/24 07:32 BP 153/70 H 01/22/24 07:32 Pulse Ox 95 01/22/24 07:32 O2 Del Method Room Air 01/22/24 07:32 O2 Flow Rate 2 01/19/24 06:49 BMI result Body Mass Index 31.2 Appearance: Alert.? Oriented X3.? cvs: rrr, [id number] , no murmur res: clear to auscultation ,no rhonchii or wheezing abd: no rebound or guarding ,nt, bs present. ext pulses present , no cyanosis . neuro: axo3 , nonfocal. DS: Data Data Completed and Pending Completed studies during hospitalization [Text1]: Procedures Insertion of Infusion Device into Left Basilic Vein, Percutaneous Approach (07/04/21) Labs on day of discharge: Laboratory Results - last 24 hr 01/22/24 08:27 Sodium 142 Potassium 3.5 Chloride 110 H Carbon Dioxide 22 Anion Gap 14 BUN 16 Creatinine 0.84 Estim Creat Clear Calc 69.4 Estimated GFR > 60 Random Glucose 134 H Calcium 8.7 D Preliminary micro results at discharge 01/18/24 15:14 Blood Culture - Preliminary Blood - Venous No growth after 48 hours. 01/18/24 15:14 Blood Culture - Preliminary Blood - Venous No growth after 48 hours. Imaging Chest x-ray: Radiologist's impression: ITS Impressions Chest X-Ray 01/18/24 11:36 IMPRESSION: Right lower lobe pneumonia. Follow-up until resolution is advised. Abdomen/Pelvis CT 01/18/24 13:18 IMPRESSION: Dilated loops of small bowel measuring up to 5 cm. This may represent partial small bowel obstruction related to adhesions. There are discontinuous segments of small bowel wall thickening with mesenteric hyperemia. There is fluid within the remaining colon as well as within the rectum. This constellation of findings likely reflects history of known Crohn's disease. KUB X-Ray 01/19/24 09:15 IMPRESSION: Persistent gaseous distention of small and large bowel loops. Perhaps slight interval improvement in degree of small bowel dilatation. Discharge Plan Discharge Anticipated Discharge Date/Time: 01/22/24 11:15 Patient Disposition: Home, Self-Care Discharge Diagnosis: pneumonia ,crohn flare Referrals: Yuli Garner MD [Primary Care Provider] - 1 Week Chelsie Navas MD [Physician] - 1 Week Discharge Medications: New doxycycline monohydrate 100 mg Capsule 100 mg PO BID Qty: 10 0RF cefuroxime axetil 500 mg Tablet 500 mg PO BID Qty: 10 0RF omeprazole 20 mg capsule,delayed release(DR/EC) 20 mg PO DAILY Qty: 30 0RF prednisone 10 mg tablet See Rx Instructions .ROUTE .COMPLEX Qty: 70 0RF Rx Instructions: see taper instructions-prednisone 40 mg po daily for 1 week, then prednisone 30 mg po daily for 1 week, then [id number] mg for 1 week, then [id number] mg for 1 week. Continued calcium carbonate [Calcium 600] 600 mg calcium (1,500 mg) tablet 600 mg PO BID 90 Days Qty: 180 3RF cetirizine [Allergy Relief (cetirizine)] 10 mg tablet 10 mg PO DAILY PRN (Reason: allergy symptoms) Qty: 90 1RF levothyroxine 88 mcg tablet 88 mcg PO QAM Qty: 90 2RF pantoprazole 40 mg tablet,delayed release (DR/EC) 40 mg PO DAILY Qty: 90 1RF mesalamine [Pentasa] 500 mg capsule, extended release 1,000 mg PO QID Qty: 720 1RF Myrbetriq 25 mg tablet extended release 24 hr 25 mg PO DAILY cholecalciferol (vitamin D3) 250 mcg (10,000 unit) capsule 250 mcg PO MOFR Discharge Orders: Discharge Order (Routine); Ordered 01/22/24 Ordered By: Leo Carrera Diet: Advance to usual diet Activity on Discharge: As tolerated Stand Alone Forms: Patient Portal Discharge page Print Language: Divehi Care Plan Goals: Patient was admitted to the hospital for abdominal pain and diarrhea, also feel congested and URI like symptoms: Further workup no leukocytosis, no fever, ct abd showed possible partial bowel obstruction vs crohn flare -switch to po 40 mg daily of prednisone and taper by 10 mg every week over 4 weeks. pneumonia :switched to ceftin 500 mg po bid and doxycycline 100 mg po bid for 5 more days. please repeat chest imaging in 3-4 weeks to see resolution of pneumonia. Patient is to follow-up with GI and PCP outpatient. Health Concerns: as above. Plan of Treatment: As above. Assessment: As above. Patient Instructions: Crohn Disease (GEN), Pneumonia (DC)
[2024-01-22] MEDS: cefuroxime axetiL 500 MG TABLET PO (12:22)
[2024-01-22] MEDS: Doxycycline Monohydrate 100 MG CAPSULE PO (12:22)
[2024-01-24 19:15] LABS: Strep Pneumo Ag urine Not Detected (Not Detected)
[2024-01-25 03:29] LABS: Legionella Ag Urine Not Detected (Not Detected)
== END 2024-01-22 13:03 | disposition home or self-care (01) | DRG 245 ==
LOC: HO.ED 14:45 → HO.EDOVER 16:33 → HO.S3 19:25
PROVIDERS: Internal Medicine; Admitting Provider Student in an Organized Health Care Education/Training Program; Emergency Provider Emergency Medicine; PCP Internal Medicine; Visit Provider Internal Medicine
DX: K50.812 Crohn's disease of both small and large intestine with intestinal obstruction (principal); J18.9 Pneumonia, unspecified organism; B34.8 Other viral infections of unspecified site; E03.9 Hypothyroidism, unspecified; K59.00 Constipation, unspecified; K21.9 Gastro-esophageal reflux disease without esophagitis; E66.9 Obesity, unspecified; Z68.31 Body mass index [BMI] 31.0-31.9, adult; Z79.890 Hormone replacement therapy; Z79.899 Other long term (current) drug therapy
CPT/HCPCS: 0241U; 36415; 71045; 74018; 74177; 80048; 80076; 81001; 83605; 83690; 83735; 84484; 85025; 86140; 87040; 87086; 87088; 87186; 87449; 87493; 87507; 87633; 87640; 87641; 87899; 93005; 99285; J0456; J0696; J1170; J1650; J2270; J2405; J2919; Q9967

== ENCOUNTER → 2024-01-18 10:44 | Outpatient (BNV) | payer OTHER, SELFPAY | PROVIDERS: Emergency Provider Emergency Medicine; PCP Internal Medicine; Visit Provider Internal Medicine | DX: R94.31 Abnormal electrocardiogram [ECG] [EKG] (principal) | CPT/HCPCS: 93010 ==

== ENCOUNTER → 2024-01-18 16:19 | Outpatient (BNV) | payer OTHER, SELFPAY | PROVIDERS: Admitting Provider Student in an Organized Health Care Education/Training Program; Emergency Provider Emergency Medicine; PCP Internal Medicine; Visit Provider Student in an Organized Health Care Education/Training Program | DX: J18.9 Pneumonia, unspecified organism (principal); K56.600 Partial intestinal obstruction, unspecified as to cause; R10.84 Generalized abdominal pain | CPT/HCPCS: 99223; 99232; 99239 ==

== ENCOUNTER → 2024-01-18 16:19 | Outpatient (BNV) | payer OTHER, SELFPAY | PROVIDERS: Admitting Provider Student in an Organized Health Care Education/Training Program; Emergency Provider Emergency Medicine; PCP Internal Medicine; Visit Provider Internal Medicine | DX: J18.9 Pneumonia, unspecified organism (principal); K56.600 Partial intestinal obstruction, unspecified as to cause; K50.119 Crohn's disease of large intestine with unspecified complications | CPT/HCPCS: 99222; 99499 ==

== ENCOUNTER → 2024-01-18 16:19 | Outpatient (BNV) | payer OTHER, SELFPAY | PROVIDERS: Admitting Provider Student in an Organized Health Care Education/Training Program; Emergency Provider Emergency Medicine; PCP Internal Medicine; Visit Provider Internal Medicine Gastroenterology | DX: K50.119 Crohn's disease of large intestine with unspecified complications (principal); K56.600 Partial intestinal obstruction, unspecified as to cause | CPT/HCPCS: 99222 ==

== ENCOUNTER → 2024-01-18 16:19 | Outpatient (BNV) | payer OTHER, SELFPAY | PROVIDERS: Admitting Provider Student in an Organized Health Care Education/Training Program; Emergency Provider Emergency Medicine; PCP Internal Medicine; Visit Provider Surgery | DX: R10.84 Generalized abdominal pain (principal); K50.119 Crohn's disease of large intestine with unspecified complications | CPT/HCPCS: 99222; 99232 ==

== ENCOUNTER 2024-01-25 10:23 | Outpatient (AMB) | payer OTHER, SELFPAY ==
[2024-01-25 10:59] VITALS: BP 148/68; PULSE 76; O2SAT 98; BMI 32.1
--- NOTE | 2024-01-25 10:59 | A.OFFPC_ITS ---
Vital Signs 01/25/24 10:59 Height 5 ft 3 in Weight 181 lb BMI 32.1 BP 148/68 H Blood Pressure Location Lt brachial Position Sitting Pulse 76 Pulse Source Pulse Oximeter Pulse Oximetry (%) 98 Oxygen Delivery Method Room Air Intake Visit Reasons: 3 month follow up Intake Note: Pt is here today for 3 month follow up Allergies No Known Allergies [No Known Allergies*] Allergy (Verified 03/07/24 16:45) Medication List - Last Reconciled 01/25/24 by Yuli Garner MD calcium carbonate (Calcium 600) 600 mg PO BID 90 days cefuroxime axetil 500 mg PO BID cetirizine (Allergy Relief (cetirizine)) 10 mg PO DAILY PRN cholecalciferol (vitamin D3) 250 mcg PO MOFR doxycycline monohydrate 100 mg PO BID levothyroxine 88 mcg PO QAM mesalamine ER (Pentasa) 1,000 mg (2 x 500 mg) PO QID mirabegron ER (Myrbetriq) 25 mg PO DAILY omeprazole 20 mg PO DAILY pantoprazole 40 mg PO DAILY prednisone see taper instructions-prednisone 40 mg po daily for 1 week, then prednisone 30 mg po daily for 1 week, then [id number] mg for 1 week, then [id number] mg for 1 week. Tobacco use date assessed: 01/25/24 Dental Screening Dental Screen Date: 01/25/24 Did you have a dental visit in the last 12 months?: No Did you have a dental problem in the last 6 months where you did not have access to dental care?: No Was dental information given to patient?: Patient has dentist HPI 3 month follow up HPI Details 63-year-old female with a PMH significan t for?Crohn's disease with hx of partial colectomy in 2010, hypothyroidism, and GERD who is here for follow up after a recent hospital admission for partial small-bowel obstruction. Labs drawn showed no leukocytosis, no fever, ct abd showed possible partial bowel obstruction vs crohn flare treated with bowel rest, IV hydration, pain management, IV Solu-Medrol with improvement of symptoms. She was seen by GI who switched her to po 40 mg daily of prednisone and taper by 10 mg every week over 4 weeks. She was also found to have right lower lobe pneumonia and was discharged on ceftin 500 mg po bid and doxycycline 100 mg po bid for 5 more days. She also tested positive for parainfluenza URI. She feels much better now, no fever cough or abdominal pain reported. Bowel movements almost back to normal [facility] Medical History Microcytic hypochromic anemia History of small bowel obstruction Intermittent lightheadedness Dyslipidemia Impaired fasting glucose History of COVID-19 GERD (gastroesophageal reflux disease) Morbid obesity Hyperparathyroidism Overactive bladder Upper back pain, chronic Large breasts Vitamin D deficiency Osteoporosis Postmenopause History of shingles Acquired hypothyroidism RLS (restless legs syndrome) Surgical History Hx of sigmoidoscopy Hx of reduction mammoplasty History of bowel resection History of esophagogastroduodenoscopy Hx of colonoscopy Hx of cholecystectomy Hx of tonsillectomy History of appendectomy H/O partial resection of colon Family History Father Lung cancer Mother Diabetes Hypertension Sister No problems noted. Mother Diabetes Paternal Grandmother Diabetes Father Lung cancer Paternal Uncle Lung cancer Social History Household Members: Family Housing: House Are you a primary patient centered care specialist to a significant other at home: No Do you presently have visiting nurse or other home services: No Alcohol intake: current Alcohol intake frequency: holidays/special occasions only Patient Tobacco Use Status: Never used Tobacco e-Cigarette/Vaping Use: Never Used Second Hand Smoke Exposure: No Advance Directives Date on File: 05/31/22 service: No Current occupational status: unemployed and disabled Current occupation: [employer] Cognitive needs: No Hearing needs: No Vision needs: Yes Female Reproductive History Menstrual Age of Menarche: 12 Questionnaire PHQ-9 Over the last 2 weeks, how often have you been bothered by any of the following problems? Depression Screening Interpretation: Negative Depression Screening Done: Yes Source: Developed by Drs. Brendon Muñoz, Kasey Becker, Raul Sweet and colleagues, with an educational bakari from [employer]. Thrive Questionnaire Date Thrive assessed: 01/19/24 AUDIT C Alcohol Use Questionnaire (AUDIT-C) 1. How often do you have a drink containing alcohol?: Never 3. How often do you have six or more drinks on one occasion?: Never Total Score: 0 Score Reviewed/Action Taken: Yes NICOLE-7 AMB Questionnaire NICOLE-7 Date NICOLE - 7 assessed: 10/27/23 Source: Developed by Drs. Brendon Muñoz, Kasey Becker, Raul Sweet and colleagues, with an educational bakari from [employer]. Review of Systems Const Reports fatigue, Denies fever(s), Denies headache(s), Denies poor appetite and Reports weakness Eyes Denies change in vision ENT Denies dysphagia and Denies headache(s) Card Denies chest pain, Denies irregular heart rhythm and Denies dyspnea Resp Denies cough and Denies dyspnea GI Denies abdominal pain, Denies change in bowel habits and Denies dysphagia Reports no additional complaints Musc Denies myalgias, Denies muscle cramps, Denies numbness and Denies tingling Neuro Denies Abnormal speech present, Denies headache(s), Denies numbness, Denies tingling and Reports weakness Endo Denies cold intolerance, Reports fatigue and Denies heat intolerance Domenic/Lymph Denies easy bruising Physical exam (Primary Care) Vital Signs: Last Vital Signs Pulse 76 01/25/24 10:59 BP 148/68 H 01/25/24 10:59 Pulse Ox 98 01/25/24 10:59 Oxygen Delivery Method Room Air 01/25/24 10:59 BMI result Body Mass Index 32.1 Tobacco/Smoking Status: Tobacco use Status Tobacco use date assessed 01/25/24 01/25/24 11:00 Patient Tobacco Use Status Never used Tobacco 01/25/24 11:00 e-Cigarette/Vaping Use Never Used 01/25/24 11:00 Depression Screening Interpretation: Negative Thrive Assessment: Date of Thrive Assessment Date Thrive assessed 01/19/24 01/25/24 11:00 Const General: comfortable and no acute distress Nutritional Appearance: obese Orientation/consciousness: patient oriented x3 HENMT Mouth: Normal oral and palatal mucosa present, tongue normal, oropharynx normal and moist mucous membranes Eyes General: appearance normal, both eyes and all related structures Neck Neck: Yes full ROM, Yes no lymphadenopathy and Yes supple Resp Effort & Inspection: normal respiratory effort and able to speak in complete sentences Auscultation: clear to auscultation bilaterally Cardio Other: S1-S2 present regular rate and rhythm GI Inspection: Yes obesity Palpation (GI): Soft to palpation, nontender, no guarding and no masses Auscultation: normal bowel sounds Other: Sees Dr. Arana Back/Spine/Pelvis Back: No back tenderness Skin General skin exam: no rashes or lesions noted Neuro General: patient oriented x3, gait normal, moves all extremities, no focal motor deficits and normal sensation to monofilament Speech: No Abnormal speech present Extrem General: Yes full ROM, Yes no joint enlargement, Yes no clubbing, cyanosis or edema, Yes no calf tenderness and Yes normal gait Psych Appearance: grossly normal and well kempt Mental Status: mental status grossly normal Speech and movement: Normal speech and movement present Affect: normal affect Attitude: cooperative Thought process: Normal thought process present Thought content: Normal thought content present Assessment and Plan Assessment & Plan (1) History of pneumonia: Code(s): Z87.01 - Personal history of pneumonia (recurrent) Plan: Patient to finished taking her Ceftin and doxycycline prescribed on her discharge. Denies any cough, no shortness of breath, no pain on inspiration (2) Partial small bowel obstruction: Code(s): K56.600 - Partial intestinal obstruction, unspecified as to cause Plan: Likely due to Crohn's colitis flares. Patient able to resume regular diet, denies any abdominal pain, advised as per GI to continue with prednisone 40 mg daily , and taper by 10 mg every week over 4 weeks. Has an appointment for follow-up with Dr. Navas Coding Level of Care Code Est Pt Level 4 (19946) Complex EM visit Add On G2211 Diagnoses History of pneumonia Z87.01 Partial small bowel obstruction K56.600
== END 2024-01-25 11:53 | disposition home or self-care (01) ==
PROVIDERS: PCP Internal Medicine; Visit Provider Internal Medicine
DX: K56.600 Partial intestinal obstruction, unspecified as to cause (principal); Z87.01 Personal history of pneumonia (recurrent)
CPT/HCPCS: 99214; G2211

== ENCOUNTER 2024-02-01 13:45 | Outpatient (REF) | payer OTHER, SELFPAY ==
--- NOTE | ~2024-02-01 | XR_ITS ---
EXAMINATION: XR CHEST CLINICAL INFORMATION: No significant with vomiting, unspecified COMPARISON: Chest 01/18/2024 TECHNIQUE: 2 views of the chest were obtained. FINDINGS: The lungs are well expanded. No focal consolidation, interstitial pulmonary edema or pneumothorax. No pleural effusion. No significant abnormality is noted involving the heart, mediastinum, bony thorax or soft tissues. Surgical clips are seen in the right side of the neck and left upper chest. XR/XR chest 2V IMPRESSION: No acute abnormality.
[2024-02-01 15:50] LABS: Basophils Percent Auto 0.2 % (0-2); Hematocrit 32.9 % (37.0-47.0); Hemoglobin 9.6 g/dl (12.0-16.0); Imm Gran Abs Auto 0.04 X10*3/uL (0.00-0.03); Imm Gran Pct Auto 0.4 % (0.0-0.4); Lymphocytes Absolute Auto 0.7 X10*3/uL (1.2-4.9); Lymphocytes Percent Auto 6.9 % (20-40); MANUAL DIFF FLAG SCAN; Mean Corpuscular HGB Conc 29.2 g/dl (31.0-35.0); Mean Corpuscular Hemoglobin 21.7 pg (27.0-33.0); Mean Corpuscular Volume 74.4 fL (80.0-98.0); Mean Platelet Volume 10.7 fL (9.4-12.3); Monocytes Absolute Auto 0.1 X10*3/uL (0.1-1.2); Monocytes Percent Auto 0.5 % (2-11); Neutrophils Absolute Auto 8.8 x10*3/uL (2.0-8.3); Platelet Count 351 X10*3/uL (160-400); Red Blood Count 4.42 X10*6/uL (4.20-5.50); Red Cell Distribution Width 19.5 % (11.0-16.0); SCAN SMEAR FLAG 1; White Blood Count 9.6 X10*3/uL (4.8-10.8)
[2024-02-01 16:16] LABS: SLIDE REVIEW VERIFIED
[2024-02-01 16:53] LABS: Alanine Aminotransferase 15 U/L (0-31); Albumin Level 3.7 g/dL (3.5-5.0); Alkaline Phosphatase 55 U/L (39-117); Anion Gap 18 (12-20); Aspartate Amino Transferase 9 U/L (5-31); Bilirubin Total 0.3 mg/dL (0.0-1.0); Blood Urea Nitrogen 22 mg/dL (9-16); C Reactive Protein < 0.10 mg/dL (< or = 0.50); Carbon Dioxide 21 mmol/L (22-29); Chloride 107 mmol/L (96-108); Cholesterol 225 mg/dL (<200); Estimated Glomerular Filt Rate 56; Glucose Fasting 158 mg/dL (60-99); Glucose Random 158 mg/dL (60-115); HDL Cholesterol 88 mg/dL (>40); LDL Cholesterol Calculated 111 mg/dL (<100); Potassium 4.2 mmol/L (3.3-5.1); Sodium 142 mmol/L (135-145); Total Protein 7.1 g/dL (6.5-8.0); Triglycerides 132 mg/dL (<150)
[2024-02-01 16:54] LABS: Parathyroid Hormone Intact 124.5 pg/mL (8.7-77.1)
[2024-02-01 17:08] LABS: Vitamin D 25-OH Total 32.9 ng/mL (>30)
[2024-02-02 09:01] LABS: HBS Num1 0.06 mIU/mL (0-7.99); HBsAGNum1 0.21 S/CO (0.00-0.99); HIV AB/AG Nonreactive (Nonreactive); HIV Num 1 0.06 S/CO (0.00-0.99); Hepatitis B Surface Antigen Negative (Negative); ~Hepatitis B Surface Antibody NONREACTIVE (Nonreactive)
[2024-02-02 09:04] LABS: Hepatitis A Antibody IgG REACTIVE (Nonreactive); ~Hepatitis A Antibody IgG 10.17 S/CO (0.00-0.99)
[2024-02-06 12:14] LABS: TSpotTB Invalid (Negative)
== END 2024-02-01 13:46 | disposition home or self-care (01) ==
LOC: HO.LAB 13:45
PROVIDERS: PCP Internal Medicine; Visit Provider Internal Medicine Gastroenterology
DX: K50.10 Crohn's disease of large intestine without complications (principal); K21.9 Gastro-esophageal reflux disease without esophagitis; K59.09 Other constipation; R73.01 Impaired fasting glucose; E78.5 Hyperlipidemia, unspecified; E21.3 Hyperparathyroidism, unspecified; E03.9 Hypothyroidism, unspecified; R11.2 Nausea with vomiting, unspecified; R42 Dizziness and giddiness
CPT/HCPCS: 36415; 71046; 80048; 80053; 80061; 82306; 83970; 85025; 85027; 86140; 86481; 86706; 86708; 87340; 87389

== ENCOUNTER 2024-02-01 13:45 | Outpatient (AMB) | payer OTHER, SELFPAY ==
--- NOTE | 2024-02-01 13:47 | MHC.OFFVIS ---
Vital Signs 02/01/24 13:48 Height 5 ft 3 in Weight 180 lb BMI 31.9 BP 94/46 L Blood Pressure Location Lt brachial Position Sitting Pulse 73 Intake Visit Reasons: ER follow up Intake Note: Patient follow up from ED due Crohns and Pneumonia Patient cc: abdominal bloating, diarrhea, and she is not her self with dizziness and weakness. Also I did her blood pressure and it is low 94/46 with pulse of 73. 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 Accompanied by: Daughter Allergies No Known Allergies [No Known Allergies*] Allergy (Verified 09/26/24 10:36) Medication List - Last Reconciled 02/01/24 by Chelsie Navas MD calcium carbonate (Calcium 600) 600 mg PO BID 90 days cetirizine (Allergy Relief (cetirizine)) 10 mg PO DAILY PRN cholecalciferol (vitamin D3) 250 mcg PO MOFR doxycycline monohydrate 100 mg PO BID levothyroxine 88 mcg PO QAM mesalamine ER (Pentasa) 1,000 mg (2 x 500 mg) PO QID mirabegron ER (Myrbetriq) 25 mg PO DAILY pantoprazole 40 mg PO DAILY prednisone see taper instructions-prednisone 40 mg po daily for 1 week, then prednisone 30 mg po daily for 1 week, then [id number] mg for 1 week, then [id number] mg for 1 week. HPI HPI ER follow up: Details: GI CLINIC VISIT FOR THIS 63-YEAR-OLD FEMALE WITH GERD, OSTEOPOROSIS, HYPOTHYROIDISM, HYPERPARATHYROIDISM HERE FOR FOLLOW-UP OF CROHN'S DISEASE. Patient has been followed by Dr. Jordan since 2012. Pt was [place] from 05/28 [place] 06[place]03[place] [facility] [place] associated with diarrhea She was treated with Flagyl and Levqaquin for 7 days. IMAGING STUDIES:? 05/28/[address] SCAN SHOWED: Suspect partial colectomy. Fluid throughout mildly dilated large and small bowel as well as within the rectal vault. Findings suggest hypersecretion and mild ileus. ? Approximately 1 cm L4 sclerotic lesion, not otherwise characterized. No other sclerotic or lytic bony lesion identified. In the absence of known or suspected malignancy elsewhere (for example, breast cancer), the finding probably represents a bone island. Recommend clinical correlation. 05/[address] SCAN SHOWED:Status post subtotal colectomy.? Multiple dilated loops of small and large bowel with slight increased prominence and proximal loops of small bowel.? There was several air-fluid levels.? ENDOSCOPIC STUDIES: 11/20/23 FLEX SIG SHOWED: Terminal Ileum: Distal 10 cms was examined - normal mucosa - random biopsies were obtained. Multiple 1-2 cms ulcers at the ileo-colic anastomosis - multiple biopsies were obtained.? Sigmoid Colon:? Decreased vascularity due to inactive Crohn's disease in the colon - four quadrant biopsies were obtained. No polyps were detected. Plan: Repeat flexible sigmoidoscopy interval based on path results - in 2 - 3 years if no dysplasia on colon biopsies. BIOPSIES SHOWED: A. Terminal ileum, biopsy: Terminal ileal mucosa within normal limits. B. Anastomotic ulcer, biopsy: Ileocolonic mucosa with patchy active inflammation and fragment of ulcer material. C. Colon, sigmoid, biopsy: Colonic mucosa within normal limits. D. Rectum, biopsy: Rectal mucosa within normal limits. Comment: No dysplasia or granulomata are seen 07/02/21 SIGMOIDOSCOPY SHOWED:Focal 2-4 cms area of ulcerations just proximal to the ileo-colic anastomosis - multiple biopsies were obtained.? Normal small bowel mucosa proximally. No polyps were detected. Decreased vascularity due to inactive Crohn's disease in the colon - surveillance biopsies were obtained. Plan:? Repeat Colonoscopy interval based on path results - in 2 years if no dysplasia on colon biopsies. BIOPSIES SHOWED: A.? Terminal ileum, biopsy:? Ileocolonic mucosa with mild crypt disarray; otherwise within normal limits. B.? Colon, 25 cm, biopsy:? Colonic mucosa within normal limits. C.? Colon, 15 cm, biopsy:? Colonic mucosa within normal limits. D.? Colon, 5 cm, biopsy:? Colonic mucosa within normal limits. COMMENT:? No dysplasia or granulomata are seen. 05/2018 FLEXIBLE SIGMOIDOSCOPY SHOWED:No polyps seen.Dilated small bowel with scattered 1 -1.5 cms ulcers througout - biopsies were obtained for histology and viral cultures. Significant amounts of stool not seen in the small intestine. Ileo-colic anastomosis at 35 cms. Circumferential ulcers with cobblestone appearance - multiple biopsies were obtained. Colonoscope passed easily through the anastomosis and no obstruction noted. Endoscopic appearance suggestive of Crohn's disease - other possibilities include CMV infection or ischemic ulcers related to past surgery/ small bowel dilation. Plan: Await pathology results. Resume a clear liquid diet as tolerated until biopsy results are available. Repeat Colonoscopy interval based on path results. BIOPSIES SHOWED: A.? SMALL BOWEL ULCER, BIOPSIES:? FRAGMENTS OF SMALL INTESTINAL MUCOSA WITH ACTIVE ILEITIS AND ULCERATION WITH RARE CYTOMEGALOVIRUS INCLUSIONS (SEE NOTE). B.? COLON, ULCER, BIOPSIES:? FRAGMENTS OF SMALL INTESTINAL AND COLONIC MUCOSA AND GRANULATION TISSUE WITH MILD CHRONIC ACTIVE COLITIS (SEE NOTE). C.? RECTUM, BIOPSIES:? FRAGMENTS OF HYPERPLASTIC COLONIC MUCOSA. NOTE:? THERE IS CRYPT ARCHITECTURAL DISTORTION, GLANDULAR BUDDING AND SUBMUCOSAL MIXED INFLAMMATORY INFILTRATES.? THESE FINDINGS MAY BE DUE TO THE CMV INFECTION, BUT THERE MAY BE UNDERLYING CROHN'S DISEASE OR ULCERATIVE COLITIS.? RECOMMEND TREATING CMV INFECTION AND FOLLOW-UP ENDOSCOPY WITH BIOPSIES TO RULE OUT INFLAMMATORY BOWL DISEASE. TODAY'S VISIT: Patient cc: abdominal bloating, diarrhea, and she is not her self with dizziness and weakness. Also I did her blood pressure and it is low 94/46 with pulse of 73. Discharged home on 01/22/24 on a prednisone taper. Feels weak with intermittent dizziness and does not feel herself Prescription for prednisone was ? miswrittent and she has been taking 1 tab daily and to increase to 2 tab on week 2 and then 3 tab on week 3 Sitting up all the time - does not want to lay down PAST VISIT Flex sig and biopsy results reviewed Sometimes I get flared up Has been taking more salads Can have pain and feels bloated. Tries to go and stool feels stuck at the end and unable to expell Takes Miralax prn if she is bloated and stool gets stuck - once every two weeks. Denies cough and does'nt think she has a fever. Having diarrhea - 3 BMs yesterday and twice today Diarrhea has improved since hospitalization and denies any blood in the stool PAST VISITS: She was advised to take Miralax once a week. Scheduled for breast reduction on 07/20/23 and unable to lie on her side for 8 weeks. She would like to reschedule to spring. Sometimes I cant go and sometimes it hurts to have a BM Noted blood in the stools last few days since she was pushing too hard and straining to go Taking Pentasa 4 times a day. Has a powder at home and has not been using it. Had an episode of nausea, vomiting and diarrhea a few weeks ago which lasted 24 hrs. She is doing well now. Had dark stools after she has spinach and broccoli. Lab and stool tests were reviewed - CRP slightly elevated. Planning to travel to [place] with her niece in January Going to [place] in March. Fecal calprotectin were normal. Bloating has resolved. Going normal with 1-3 times a day with passage of normal stools Cold sweats have resolved - thinks it was related to COVID infection. Had her 2nd Booster for COVID a few months Feels she has an infection. Intermittent cold sweats. Constantly going to the bathroom to urinate. Diarrhea is not as bad as while she was in the hospital. BMs are dark (blackish) Has been having a few loose pudding like BMs per day. Concerned about recurrent CMV infection. Upset since her sister with PMR in Nov 07, 2021. An aunt and sister as well Has to go to [place] in January to help her aunt. Going to the bathroom regularly. Once in a great while, she can see some blood (a little dot) Can have some abdominal pain - when she was very stressed and not eating right. Has been very stressed. Has been doing well since she had the subtotal colectomy without recurrent SBO. Has been taking the Pentasa 1 gram 4 times a day for the past several yrs. Continues to have heartburn - comes on all of a sudden - mostly at night. Takes Senna if she does not have a BM for a day and is able to go the next morning. Patient denies major cardiac or pulmonary problems, loud snoring or sleep apnea. Denies problems with anesthesia in the past. Denies being on chronic anticoagulation. Patient denies known family history of other GI malignancies. Sister had cancer in one of the polyps and had surgery and is doing fine now. PAST GI HISTORY BY REVIEW OF MEDICAL RECORDS: IBD SUMMARY YEAR OF DIAGNOSIS:? 2000 DISEASE EXTENT:Colon and small intestines LAST COLONOSCOPY FINDINGS:06/2021 as noted above NEXT COLON DUE: 2022 EXTRAINTESTINAL MANIFESTATIONS: Denies skin rash, joint pains or eye pain GI SURGERY:? Colon resection 2000 - subtotal colectomy. CURRENT THERAPY:? Pentasa 1 gram 4 times daily, Senna for constipation VACCINATIONS: Flu shot:? Gets Flu shot every year. Hep A/B serology /vaccination:?unsure [facility] Medical History Partial small bowel obstruction History of small bowel obstruction Dyslipidemia Impaired fasting glucose History of COVID-19 GERD (gastroesophageal reflux disease) Morbid obesity Hyperparathyroidism Overactive bladder Upper back pain, chronic Large breasts Vitamin D deficiency Osteoporosis Postmenopause History of shingles Acquired hypothyroidism RLS (restless legs syndrome) Surgical History Hx of sigmoidoscopy Hx of reduction mammoplasty History of bowel resection History of esophagogastroduodenoscopy Hx of colonoscopy Hx of cholecystectomy Hx of tonsillectomy History of appendectomy H/O partial resection of colon Family History Father Lung cancer Mother Diabetes Hypertension Sister No problems noted. Mother Diabetes Paternal Grandmother Diabetes Father Lung cancer Paternal Uncle Lung cancer Social History Household Members: Family Housing: Apartment Are you a primary resident care coordinator to a significant other at home: No Do you presently have visiting nurse or other home services: No Alcohol intake: never Patient Tobacco Use Status: Never used Tobacco e-Cigarette/Vaping Use: Never Used Second Hand Smoke Exposure: No Advance Directives Date on File: 05/31/22 service: No Current occupational status: unemployed and disabled Current occupation: [employer] Cognitive needs: No Hearing needs: No Vision needs: Yes Female Reproductive History Menstrual Age of Menarche: 12 Review of Systems Const All systems reviewed & are unremarkable except as noted in HPI and below Physical Exam Vital Signs: Last Vital Signs Pulse 73 02/01/24 13:48 BP 94/46 L 02/01/24 13:48 BMI result Body Mass Index 31.9 Const General: healthy appearing and no acute distress Nutritional Appearance: obese Orientation/consciousness: patient oriented x3 Limitations: no limitations HEENT Head: Yes normal to inspection Ears: hearing grossly normal bilaterally Eyes Sclerae: sclerae normal Pupils: Equal, round and reactive pupils present Neck Neck: Yes normal visual inspection Chest Chest palpation & inspection: normal inspection of the chest Resp Effort & Inspection: normal respiratory effort Auscultation: clear to auscultation bilaterally Cardio Palpation: normal PMI Rate: regular rate Rhythm: regular rhythm Heart sounds: S1 normal heart sound present, S2 normal heart sound present and no murmurs GI Palpation (GI): Soft to palpation, nontender and No hepatosplenomegaly present Auscultation: normal bowel sounds Rectal Exam - Female: deferred Skin General skin exam: no rashes or lesions noted Neuro General: patient oriented x3, gait normal and moves all extremities Cranial nerves: Yes Equal, round and reactive pupils present Psych Appearance: grossly normal Mental Status: mental status grossly normal Assessment & Plan Assessment & Plan (1) Crohn's colitis: Code(s): K50.10 - Crohn's disease of large intestine without complications Category: Medical Qualifiers: Digestive disease complication type: unspecified complication Qualified Code(s): K50.119 - Crohn's disease of large intestine with unspecified complications (2) GERD (gastroesophageal reflux disease): Code(s): K21.9 - Gastro-esophageal reflux disease without esophagitis Category: Medical Qualifiers: Esophagitis presence: without esophagitis Qualified Code(s): K21.9 - Gastro-esophageal reflux disease without esophagitis (3) Chronic constipation: Code(s): K59.09 - Other constipation Category: Medical Plan YF with Crohn's disease involving the small bowel and colon and is status post subtotal colectomy. Patient has been followed by Dr. Jordan since 2012. 05/2018 Flex Sig showed?Dilated small bowel with scattered 1 -1.5 cms ulcers througout - biopsies were positive for CMV inclusion and patient was treated for CMV. Ileo-colic anastomosis at 35 cms. Circumferential ulcers with cobblestone appearance - multiple biopsies were obtained 06/2021 Flexible Sig was performed and showed: Focal 2-4 cms area of ulcerations just proximal to the ileo-colic anastomosis - multiple biopsies were obtained.? Normal small bowel mucosa proximally. No polyps were detected. Decreased vascularity due to inactive Crohn's disease in the colon - surveillance biopsies were obtained. Plan:? Repeat Colonoscopy interval based on path results - in 2 years if no dysplasia on colon biopsies (due 06/2023) Patient's symptoms are well controlled with Pentasa 1 g 4 times daily. 07/2021 Pt was started on azathioprine due to focal area of ulcerations in the TI proximal to the anastomosis. Pt was hospitalized from 05/28 to 06/03/[place] [facility] [place] infection associated with diarrhea She was treated with Flagyl and Levqaquin for 7 days. Pt had postprandial abd discomfort with bloating after her hospitalization which has resolved. Pt was advised to go on a FODMAP diet for 6 weeks CRP slightly elevated at 0.61 and stool calprotectin was normal. 06/29/23 Scheduled for breast reduction on 07/20/23 and unable to lie on her side for 8 weeks. Meredith would like to reschedule her colonoscopy from 08/28/23 to spring. 12/07/23 Sometimes I get flared up Can have pain and feels bloated. Tries to go and stool feels stuck at the end and unable to expell Takes Miralax prn if she is bloated and stool gets stuck - once every two weeks. She was advised to take Miralax once a week. 01/31/24 Discharged home on 01/22/24 on a prednisone taper. Feels weak with intermittent dizziness and does not feel herself FU in 5 WEEKS Orders: Orders Complete Blood Count Auto Diff 02/01/24 R11.2 - Nausea with vomiting, unspecified Hepatitis B Surface Antibody 02/01/24 R11.2 - Nausea with vomiting, unspecified Hepatitis B Surface Antigen 02/01/24 R11.2 - Nausea with vomiting, unspecified HIV Ab/Ag 02/01/24 R11.2 - Nausea with vomiting, unspecified T Spot TB 02/01/24 R11.2 - Nausea with vomiting, unspecified C Reactive Protein 02/01/24 R11.2 - Nausea with vomiting, unspecified Comprehensive Met. Panel 02/01/24 R11.2 - Nausea with vomiting, unspecified Hepatitis A IgG 02/01/24 R11.2 - Nausea with vomiting, unspecified XR chest 2V 02/01/24 R11.2 - Nausea with vomiting, unspecified Medications: New azathioprine 50 mg PO DAILY 30 tabs 3RF 30 days K51.50 - Left sided colitis without complications adalimumab (Humira(CF) Pen Crohn's-[facility] Colitis-Hid Sup Strt) administer as 2 pens (160 mg) on Day 1 and 80 mg on Day 15 Then 40 mg every 2 weeks 80 mg (0.8 mL) subcut DAILY 3 kits 1RF 3 days K50.90 - Crohn's disease, unspecified, without complications Discontinued doxycycline monohydrate Discontinued Reason: Patient Completed Course 100 mg PO BID 10 caps 0RF Coding Level of Care Code Est Pt Level 4 (09389) Diagnoses Crohn's disease of colon with complication K50.119 Digestive disease complication type: unspecified complication Gastroesophageal reflux disease without esophagitis K21.9 Esophagitis presence: without esophagitis Chronic constipation K59.09 Time Spent (min) 25
[2024-02-01 13:48] VITALS: BP 94/46; PULSE 73; BMI 31.9
== END 2024-02-01 15:56 | disposition home or self-care (01) ==
PROVIDERS: PCP Internal Medicine; Visit Provider Internal Medicine Gastroenterology
DX: K50.119 Crohn's disease of large intestine with unspecified complications (principal); K21.9 Gastro-esophageal reflux disease without esophagitis; K59.09 Other constipation
CPT/HCPCS: 99499

== ENCOUNTER 2024-02-07 11:13 | Outpatient (AMB) | payer OTHER, SELFPAY ==
[2024-02-07 11:23] VITALS: BP 104/60; PULSE 76; TEMP 36.9; O2SAT 98; BMI 31.9
--- NOTE | 2024-02-07 11:23 | AM.OFFWIN_ITS ---
Intake Vital Signs 02/07/24 11:23 Height 5 ft 3 in Weight 180 lb BMI 31.9 BP 104/60 Blood Pressure Location Rt brachial Position Sitting Pulse 76 Pulse Source Pulse Oximeter Temp 98.4 F Temp Source Oral Pulse Oximetry (%) 98 Intake Visit Reasons: EP dizzy , lightheaded , right side neck pain Intake Note: pt is here for dizziness, lightheaded, and neck pain on right side 3 Patient Tobacco Use Status: Never used Tobacco Allergies No Known Allergies [No Known Allergies*] Allergy (Verified 02/07/24 11:24) Do you need a note to return to daycare/school/sports/work: No HPI HPI Comments History of Present Illness Details 63 y/o female patient who presents to [facility] in clinic with c/o body weakness, sore-throat, runny nose, dry itchy eyes and dizziness x 3 days. Pt was admitted 2 weeks for Pneumonia, and currently on Oral Abx. [facility] Medical History Dyslipidemia Impaired fasting glucose History of COVID-19 GERD (gastroesophageal reflux disease) COVID-19 Morbid obesity Hyperparathyroidism Overactive bladder Upper back pain, chronic Large breasts Vitamin D deficiency Osteoporosis Postmenopause History of shingles Acquired hypothyroidism RLS (restless legs syndrome) Surgical History Hx of sigmoidoscopy Hx of reduction mammoplasty History of bowel resection History of esophagogastroduodenoscopy Hx of colonoscopy Hx of cholecystectomy Hx of tonsillectomy History of appendectomy H/O partial resection of colon Family History Father Lung cancer Mother Diabetes Hypertension Sister No problems noted. Mother Diabetes Paternal Grandmother Diabetes Father Lung cancer Paternal Uncle Lung cancer Social History Household Members: Family Housing: House Are you a primary prompt care rn to a significant other at home: No Do you presently have visiting nurse or other home services: No Alcohol intake: current Alcohol intake frequency: holidays/special occasions only Patient Tobacco Use Status: Never used Tobacco e-Cigarette/Vaping Use: Never Used Second Hand Smoke Exposure: No Advance Directives Date on File: 05/31/22 service: No Current occupational status: unemployed and disabled Current occupation: [employer] Cognitive needs: No Hearing needs: No Vision needs: Yes Female Reproductive History Menstrual Age of Menarche: 12 Review of Systems Const All systems reviewed & are unremarkable except as noted in HPI and below Physical Exam Vital Signs: Last Vital Signs Temp 98.4 F 02/07/24 11:23 Pulse 76 02/07/24 11:23 BP 104/60 02/07/24 11:23 Pulse Ox 98 02/07/24 11:23 BMI result Body Mass Index 31.9 Const General: comfortable and no acute distress Nutritional Appearance: overweight Orientation/consciousness: patient oriented x3 HEENT Head: Yes normocephalic Ears: external ears normal and TM's normal bilaterally General nose exam: Normal nasal mucous membranes and turbinates present Face and sinus: Yes sinuses nontender Mouth: moist mucous membranes Teeth and gingiva: dentures Throat: Yes posterior oropharynx normal Resp Effort & Inspection: normal respiratory effort and able to speak in complete sentences Auscultation: clear to auscultation bilaterally, no crackles, no rales, no rhonchi and no wheezes Cardio Rate: regular rate Neuro General: patient oriented x3 Assessment & Plan Assessment & Plan (1) Upper respiratory infection: Code(s): J06.9 - Acute upper respiratory infection, unspecified Qualifiers: URI type: unspecified viral URI Qualified Code(s): J06.9 - Acute upper respiratory infection, unspecified Plan: - Rest and continue taking Abx as prescribed - Hydrate well - Advised to go to ED if symptoms getting worse. - Acetaminophen for pain relief. Coding Level of Care Code Est Pt Level 3 (95545) Diagnoses Viral upper respiratory tract infection J06.9 URI type: unspecified viral URI Time Spent (min) 15
== END 2024-02-07 12:35 | disposition home or self-care (01) ==
PROVIDERS: PCP Internal Medicine; Visit Provider Nurse Practitioner Family
DX: J06.9 Acute upper respiratory infection, unspecified (principal)
CPT/HCPCS: 99213

== ENCOUNTER 2024-02-15 10:58 | Outpatient (REF) | payer OTHER, SELFPAY ==
[2024-02-15 12:28] LABS: Ferritin 7 ng/mL (10-250)
[2024-02-18 11:09] LABS: TS Negative Control Passed; TS Panel A 0; TS Panel B 0; TS Positive Control Passed; TSpotTB Negative (Negative)
== END 2024-02-15 10:59 | disposition home or self-care (01) ==
LOC: HO.LAB 10:58
PROVIDERS: Visit Provider Internal Medicine Gastroenterology
DX: K50.119 Crohn's disease of large intestine with unspecified complications (principal)
CPT/HCPCS: 36415; 82728; 86481

== ENCOUNTER 2024-02-21 10:22 | Outpatient (AMB) | payer OTHER, SELFPAY ==
--- NOTE | 2024-02-21 10:32 | MHC.PC.OV ---
Vital Signs 02/21/24 10:35 Height 5 ft 3 in Weight 185 lb BMI 32.8 BP 100/64 Blood Pressure Location Lt brachial Position Sitting Pulse 79 Pulse Source Pulse Oximeter Pulse Oximetry (%) 98 Oxygen Delivery Method Room Air Intake Visit Reasons: Dizzy, lightheaded, balance is off Intake Note: Pt is here today c/o vertigo Allergies No Known Allergies [No Known Allergies*] Allergy (Verified 03/07/24 17:37) Medication List - Last Reconciled 02/21/24 by Yuli Garner MD adalimumab (Humira(CF) Pen Crohn's-[facility] Colitis-Hid Sup Strt) 80 mg (0.8 mL) subcut DAILY 3 days calcium carbonate (Calcium 600) 600 mg PO BID 90 days cetirizine (Allergy Relief (cetirizine)) 10 mg PO DAILY PRN cholecalciferol (vitamin D3) 250 mcg PO MOFR levothyroxine 88 mcg PO QAM mesalamine ER (Pentasa) 1,000 mg (2 x 500 mg) PO QID mirabegron ER (Myrbetriq) 25 mg PO DAILY pantoprazole 40 mg PO DAILY Tobacco use date assessed: 02/21/24 Dental Screening Dental Screen Date: 02/21/24 Did you have a dental visit in the last 12 months?: No Was dental information given to patient?: No HPI Dizzy, lightheaded, balance is off HPI Details 63-year-old lady with history of Crohn's colitis, recently admitted a month ago for pneumonia, parainfluenza virus, and partial small-bowel obstruction, here today complaining of intermittent episodes of lightheadedness, with no history of falls, and malaise and fatigue since discharge a month ago. Reviewed recent fasting labs ordered by her GI doctor 02/01/2024 which showed presence of microcytic hyperchromic anemia, low ferritin level and elevated fasting glucose. [facility] Medical History Microcytic hypochromic anemia History of small bowel obstruction Intermittent lightheadedness Dyslipidemia Impaired fasting glucose History of COVID-19 GERD (gastroesophageal reflux disease) Morbid obesity Hyperparathyroidism Overactive bladder Upper back pain, chronic Large breasts Vitamin D deficiency Osteoporosis Postmenopause History of shingles Acquired hypothyroidism RLS (restless legs syndrome) Surgical History Hx of sigmoidoscopy Hx of reduction mammoplasty History of bowel resection History of esophagogastroduodenoscopy Hx of colonoscopy Hx of cholecystectomy Hx of tonsillectomy History of appendectomy H/O partial resection of colon Family History Father Lung cancer Mother Diabetes Hypertension Sister No problems noted. Mother Diabetes Paternal Grandmother Diabetes Father Lung cancer Paternal Uncle Lung cancer Social History Household Members: Family Housing: House Are you a primary day care assistant to a significant other at home: No Do you presently have visiting nurse or other home services: No Alcohol intake: current Alcohol intake frequency: holidays/special occasions only Patient Tobacco Use Status: Never used Tobacco e-Cigarette/Vaping Use: Never Used Second Hand Smoke Exposure: No Advance Directives Date on File: 05/31/22 service: No Current occupational status: unemployed and disabled Current occupation: [employer] Cognitive needs: No Hearing needs: No Vision needs: Yes Female Reproductive History Menstrual Age of Menarche: 12 Questionnaire PHQ-9 Over the last 2 weeks, how often have you been bothered by any of the following problems? Depression Screening Interpretation: Negative Depression Screening Done: Yes Source: Developed by Drs. Brendon Muñoz, Kasey Becker, Raul Sweet and colleagues, with an educational bakari from [employer]. Thrive Questionnaire Date Thrive assessed: 01/19/24 NICOLE-7 AMB Questionnaire NICOLE-7 Date NICOLE - 7 assessed: 10/27/23 Source: Developed by Drs. Brendon Muñoz, Kasey Becker, Raul Swete and colleagues, with an educational bakari from [employer]. Review of Systems Const Reports as per HPI Eyes Denies change in vision ENT Reports no additional complaints Card Denies chest pain, Denies chest pain with activity, Denies irregular heart rhythm and Denies dyspnea on exertion Resp Denies dyspnea on exertion GI Denies abdominal pain, Denies melena, Denies bloating, Denies hematochezia, Denies change in bowel habits and Denies heartburn Reports no additional complaints Musc Reports no additional complaints Skin/Breast Denies rash Neuro Reports no additional complaints and Denies Abnormal speech present Endo Reports no additional complaints Domenic/Lymph Denies easy bleeding and Denies easy bruising Physical exam (Primary Care) Vital Signs: Last Vital Signs Pulse 79 02/21/24 10:35 BP 100/64 02/21/24 10:35 Pulse Ox 98 02/21/24 10:35 Oxygen Delivery Method Room Air 02/21/24 10:35 BMI result Body Mass Index 32.8 Tobacco/Smoking Status: Tobacco use Status Tobacco use date assessed 02/21/24 02/21/24 10:37 Patient Tobacco Use Status Never used Tobacco 02/21/24 10:37 e-Cigarette/Vaping Use Never Used 02/21/24 10:37 Depression Screening Interpretation: Negative Thrive Assessment: Date of Thrive Assessment Date Thrive assessed 01/19/24 02/21/24 10:37 Const General: comfortable and no acute distress Nutritional Appearance: obese Orientation/consciousness: patient oriented x3 HENMT Mouth: Normal oral and palatal mucosa present, oropharynx normal and moist mucous membranes Eyes Other: Anicteric, pale palpebral conjunctiva Pupils: Equal, round and reactive pupils present EOM: EOMs intact bilaterally Neck Neck: Yes full ROM, Yes no lymphadenopathy and Yes supple Resp Effort & Inspection: normal respiratory effort and able to speak in complete sentences Auscultation: clear to auscultation bilaterally Cardio Other: S1-S2 present regular rate and rhythm GI Inspection: Yes obesity Palpation (GI): Soft to palpation, nontender, no guarding and no masses Auscultation: normal bowel sounds Back/Spine/Pelvis Back: No back tenderness Skin General skin exam: no rashes or lesions noted Neuro General: patient oriented x3, gait normal, moves all extremities, no focal motor deficits and normal sensation to monofilament Cranial nerves: Yes Equal, round and reactive pupils present Speech: No Abnormal speech present Extrem General: Yes full ROM, Yes no joint enlargement, Yes no clubbing, cyanosis or edema, Yes no calf tenderness and Yes normal gait Results AMB Hemoglobin A1c AMB Hemoglobin A1c 5.8 % Last Edit by Brenda Zavala CMA on 02/21/24 11:12 Results Reviewed Results Reviewed: Laboratory Last Values Hgb A1c (Clinic) 5.8 % (4.0-6.0) 02/21/24 11:11 Name: Meredith Bravo Age/Sex: 63/F : 1960 Unit#: [id number] Attend Dr: Chelsie Navas MD Re02/01/24 Status: DEP [facility] Disch: SPEC : [id number] JOSE: 02/01/24 STATUS: COMP REQ : [id number] RECD: 02/01/[address]: Chelsie Navas MD COMP: 02/01/24 ENTERED: 02/01/[address]: Yuli Garner MD ORDERED: CBC No Diff, CBC Auto Diff, SLIDE REVIEW Test Result Flag Reference WBC 9.6 4.8-10.8 X10*3/uL RBC 4.42 4.20-5.50 X10*6/uL HGB 9.6 L 12.0-16.0 g/dl HCT 32.9 L 37.0-47.0 % MCV 74.4 L 80.0-98.0 fL MCH 21.7 L 27.0-33.0 pg MCHC 29.2 L 31.0-35.0 g/dl RDW 19.5 H 11.0-16.0 % PLT 351 160-400 X10*3/uL MPV 10.7 9.4-12.3 fL Neut Pct Auto 92.0 H 45-73 % ImGran Pct Auto 0.4 0.0-0.4 % Lymp Pct Auto 6.9 L 20-40 % Obion Pct Auto 0.5 L 2-11 % Eos Pct Auto 0.0 0-4 % Baso Pct Auto 0.2 0-2 % NRBC Pct Auto 0.0 0.0-0.2 /100WBC ANC Neut Abs # 8.8 H 2.0-8.3 x10*3/uL ImGran Abs Auto 0.04 H 0.00-0.03 X10*3/uL Lymph Abs Auto 0.7 L 1.2-4.9 X10*3/uL Obion Abs Auto 0.1 0.1-1.2 X10*3/uL Eos Abs Auto 0.0 0.0-0.4 X10*3/uL Baso Abs Auto 0.0 0.0-0.2 X10*3/uL NRBC Abs Auto 0.000 0.0-0.012 X10*3/uL SLIDE REVIEW VERIFIED Laboratory Tests 02/15/24 11:19 Ferritin 7 L Name: Meredith Bravo Age/Sex: 63/F : 1960 Unit#: [id number] Attend Dr: Chelsie Navas MD Re02/01/24 Status: DEP REF Location: .LAB Disch: SPEC : [id number] JOSE: 02/01/24 STATUS: COMP REQ : [id number] RECD: 02/01/[address]: Yuli Garner MD COMP: 02/01/24-1707 ENTERED: 02/01/24-[address]: Chelsie Navas MD ORDERED: CMP, Met Prof Fast, C Reactive Prot, Lipid Panel, Vitamin D 25-OH Test Result Flag Reference Sodium 142 135-145 mmol/L Potassium 4.2 3.3-5.1 mmol/L CL 107 96-108 mmol/L CO2 21 L 22-29 mmol/L Gap 18 12-20 BUN 22 H 9-16 mg/dL Creat 1.01 0.5-1.4 mg/dL EGFR 56 NOTE: For -Lao individuals, multiply the result by 1.210. Chronic Kidney Disease: Estimated GFR < 60 mL/min/1.73m2 Severe Kidney Disease: Estimated GFR < 15 mL/min/1.73m2 Glucose, Random 158 H 60-115 mg/dL FBS 158 H 60-99 mg/dL A fasting glucose of 126 mg/dl or greater on more than one occasion is considered diagnostic of diabetes. CA 9.0 8.4-10.2 mg/dL Total Bili 0.3 0.0-1.0 mg/dL AST (GOT) 9 5-31 U/L ALT (GPT) 15 0-31 U/L CRP < 0.10 < or = 0.50 mg/dL Protein, Total 7.1 6.5-8.0 g/dL Alb 3.7 3.5-5.0 g/dL Triglyceride 132 <150 mg/dL Desirable Triglyceride: less than 150 mg/dL Borderline High Triglyceride 150-199 mg/dL High Triglyceride: 200-499 mg/dL Very High Triglyceride: greater than or equal to 5OO mg/dL Cholesterol 225 H <200 mg/dL Desirable Cholesterol: less than 200 mg/dL Borderline High Cholesterol: 200-239 mg/dL High Cholesterol: greater than 239 mg/dL LDL Calculated 111 H <100 mg/dL Desirable LDL: less than 100 mg/dL Near Optimal/Above Optimal LDL: 110-129 mg/dL Borderline High LDL: 130-159 mg/dL High LDL: 160-189 mg/dL Very High LDL: greater than or equal to 190 mg/dL HDL 88 >40 mg/dL Desirable HDL: greater than 40 mg/dL Note: This HDL assay may give artificially low results in patients with liver disease. Alk Phos 55 39-117 U/L Vit D 25-OH Tot 32.9 >30 ng/mL Health Based Reference Values* < 20 ng/mL Deficient 20-30 ng/mL Insufficient > 30 ng/mL Sufficient Assessment and Plan Assessment & Plan (1) Microcytic hypochromic anemia: Code(s): D50.9 - Iron deficiency anemia, unspecified Plan: Last CBC 02/01/2024 showed hemoglobin hematocrit at 9.6/32.9 respectively. Will start on ferrous sulfate 325 mg per tablet to take 1 tablet once a day, advised to take it with orange juice for better absorption. Recheck another CBC and iron panel today, (2) Fatigue: Code(s): R53.83 - Other fatigue Plan: Repeat CBC, iron profile, vitamin B12 and vitamin-D, TSH and free T4. Fatigue and dizziness likely due to anemia. Started on ferrous sulfate 325 mg 1 tablet daily. (3) Crohn's colitis: Code(s): K50.10 - Crohn's disease of large intestine without complications Qualifiers: Digestive disease complication type: unspecified complication Qualified Code(s): K50.119 - Crohn's disease of large intestine with unspecified complications Plan: Followed by GI, already completed tapering dose of prednisone from her recent discharge. Restarted back on Humira (4) Acquired hypothyroidism: Code(s): E03.9 - Hypothyroidism, unspecified Plan: TSH with free T4 checked today, the meantime continue with current dose of levothyroxine 88 mcg daily in a.m. an hour before breakfast Orders: Orders Complete Blood Count Auto Diff 02/22/24 R42 - Dizziness and giddiness, R53.83 - Other fatigue IRON PROFILE 02/22/24 R42 - Dizziness and giddiness, R53.83 - Other fatigue Vitamin B12 and Folate 02/22/24 R42 - Dizziness and giddiness, R53.83 - Other fatigue AMB Hemoglobin A1c 02/21/24 R73.01 - Impaired fasting glucose Basic Metabolic Panel Fasting 02/22/24 R42 - Dizziness and giddiness, R53.83 - Other fatigue Thyroid Stimulating Hormone 02/22/24 R42 - Dizziness and giddiness, R53.83 - Other fatigue, E03.9 - Hypothyroidism, unspecified Vitamin D 25-OH Total 02/22/24 R42 - Dizziness and giddiness, R53.83 - Other fatigue Free T4 (Free Thyroxine) 02/22/24 E03.9 - Hypothyroidism, unspecified Medications: New ferrous sulfate 325 mg PO DAILY 90 tabs 1RF D50.9 - Iron deficiency anemia, unspecified Coding Level of Care Code Est Pt Level 4 (13459) Complex EM visit Add On G2211 Diagnoses Microcytic hypochromic anemia D50.9 Fatigue R53.83 Crohn's disease of colon with complication K50.119 Digestive disease complication type: unspecified complication Acquired hypothyroidism E03.9
[2024-02-21 10:35] VITALS: BP 100/64; PULSE 79; O2SAT 98; BMI 32.8
== END 2024-02-21 11:16 | disposition home or self-care (01) ==
PROVIDERS: PCP Internal Medicine; Visit Provider Internal Medicine
DX: R73.01 Impaired fasting glucose (principal)
CPT/HCPCS: 83036; 99214; G2211

== ENCOUNTER 2024-02-22 06:46 | Outpatient (REF) | payer OTHER, SELFPAY ==
[2024-02-22 10:22] LABS: MANUAL DIFF FLAG NO
[2024-02-22 10:35] LABS: Basophils Percent Auto 0.6 % (0-2); Eosinophils Absolute Auto 0.1 X10*3/uL (0.0-0.4); Eosinophils Percent Auto 1.1 % (0-4); Hematocrit 31.8 % (37.0-47.0); Hemoglobin 9.1 g/dl (12.0-16.0); Imm Gran Abs Auto 0.04 X10*3/uL (0.00-0.03); Imm Gran Pct Auto 0.6 % (0.0-0.4); Lymphocytes Absolute Auto 2.3 X10*3/uL (1.2-4.9); Lymphocytes Percent Auto 32.2 % (20-40); Mean Corpuscular HGB Conc 28.6 g/dl (31.0-35.0); Mean Corpuscular Hemoglobin 21.4 pg (27.0-33.0); Mean Corpuscular Volume 74.8 fL (80.0-98.0); Mean Platelet Volume 9.5 fL (9.4-12.3); Monocytes Absolute Auto 0.4 X10*3/uL (0.1-1.2); Neutrophils Absolute Auto 4.4 x10*3/uL (2.0-8.3); Neutrophils Percent Auto 60.5 % (45-73); Platelet Count 526 X10*3/uL (160-400); Red Blood Count 4.25 X10*6/uL (4.20-5.50); Red Cell Distribution Width 20.8 % (11.0-16.0); White Blood Count 7.3 X10*3/uL (4.8-10.8)
[2024-02-22 11:14] LABS: Anion Gap 18 (12-20); Blood Urea Nitrogen 21 mg/dL (9-16); Calcium 9.1 mg/dL (8.4-10.2); Carbon Dioxide 20 mmol/L (22-29); Chloride 109 mmol/L (96-108); Estimated Glomerular Filt Rate > 60; Free T4 (Free Thyroxine) 1.04 ng/dL (0.71-1.85); Glucose Fasting 93 mg/dL (60-99); Iron 16 mcg/dL (30-160); Percent Iron Saturation 5 % (15-50); Potassium 4.1 mmol/L (3.3-5.1); Sodium 143 mmol/L (135-145); Thyroid Stimulating Hormone 3.08 uIU/mL (0.32-4.0); Total Iron Binding Capacity 316 mcg/dL (228-428); Unsaturated Iron Binding 300 ug/dL; Vitamin D 25-OH Total 60.4 ng/mL (>30)
[2024-02-22 11:16] LABS: Folate 4.3 ng/mL (> or = 4.0); Vitamin B12 220 pg/mL (200-900)
== END 2024-02-22 06:47 | disposition home or self-care (01) ==
LOC: HO.HMGCLDS 06:46
PROVIDERS: PCP Internal Medicine; Visit Provider Internal Medicine
DX: R42 Dizziness and giddiness (principal); R53.83 Other fatigue; E03.9 Hypothyroidism, unspecified
CPT/HCPCS: 36415; 80048; 82306; 82607; 82746; 83540; 84439; 84443; 85025

== ENCOUNTER → 2024-02-23 10:58 | Outpatient (BNVA) | payer OTHER, SELFPAY | PROVIDERS: PCP Internal Medicine; Visit Provider Internal Medicine Gastroenterology | DX: Z79.620 Long term (current) use of immunosuppressive biologic (principal) | CPT/HCPCS: 99211 ==

== ENCOUNTER 2024-03-07 10:40 | Outpatient (AMB) | payer OTHER, SELFPAY ==
--- NOTE | 2024-03-07 10:45 | A.OFFVIS_ITS ---
Vital Signs 03/07/24 10:50 Height 5 ft 3 in Weight 190 lb 7.67 oz BMI 33.7 BP 124/76 Blood Pressure Location Lt brachial Position Sitting Pulse 70 Pulse Source Pulse Oximeter Pulse Oximetry (%) 98 Oxygen Delivery Method Room Air Intake Visit Reasons: follow up Intake Note: Meredith presents in office today for a scheduled 5 week FUV CC; Pt recently started on humira following nurse instruction. Pt also had lab work completed that was ordered at their last visit. Pt reports that they have had slight improvements in their sx since their last visit. However, they do feel that they are still experiencing their chronic sx, particularly the bloating. Pt denies any difficulties with the humira injections to this point. 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 Allergies No Known Allergies [No Known Allergies*] Allergy (Verified 09/26/24 10:36) Medication List - Last Reconciled 03/07/24 by Chelsie Navas MD adalimumab (Humira Pen) inject one - 40 mg/0.8 mL pen every 2 weeks subcutaneously every 14 days; 30 days adalimumab (Humira(CF) Pen Crohn's-[facility] Colitis-Hid Sup Strt) 80 mg (0.8 mL) subcut DAILY 3 days calcium carbonate (Calcium 600) 600 mg PO BID 90 days cetirizine (Allergy Relief (cetirizine)) 10 mg PO DAILY PRN cholecalciferol (vitamin D3) 250 mcg PO MOFR ferrous sulfate 325 mg PO DAILY levothyroxine 88 mcg PO QAM mesalamine ER (Pentasa) 1,000 mg (2 x 500 mg) PO QID mirabegron ER (Myrbetriq) 25 mg PO DAILY pantoprazole 40 mg PO DAILY HPI HPI follow up: Details: GI CLINIC VISIT FOR THIS 63-YEAR-OLD FEMALE WITH GERD, OSTEOPOROSIS, HYPOTHYROIDISM, HYPERPARATHYROIDISM HERE FOR FOLLOW-UP OF CROHN'S DISEASE. Patient has been followed by Dr. Jordan since 2012. Pt was hospitalized from 05/28 to 06/03/22 at [facility] COVID infection associated with diarrhea She was treated with Flagyl and Levqaquin for 7 days. IMAGING STUDIES:? 05/28/[address] SCAN SHOWED: Suspect partial colectomy. Fluid throughout mildly dilated large and small bowel as well as within the rectal vault. Findings suggest hypersecretion and mild ileus. ? Approximately 1 cm L4 sclerotic lesion, not otherwise characterized. No other sclerotic or lytic bony lesion identified. In the absence of known or suspected malignancy elsewhere (for example, breast cancer), the finding probably represents a bone island. Recommend clinical correlation. 05/[address] SCAN SHOWED:Status post subtotal colectomy.? Multiple dilated loops of small and large bowel with slight increased prominence and proximal loops of small bowel.? There was several air-fluid levels.? ENDOSCOPIC STUDIES: 11/20/23 FLEX SIG SHOWED: Terminal Ileum: Distal 10 cms was examined - normal mucosa - random biopsies were obtained. Multiple 1-2 cms ulcers at the ileo-colic anastomosis - multiple biopsies were obtained.? Sigmoid Colon:? Decreased vascularity due to inactive Crohn's disease in the colon - four quadrant biopsies were obtained. No polyps were detected. Plan: Repeat flexible sigmoidoscopy interval based on path results - in 2 - 3 years if no dysplasia on colon biopsies. BIOPSIES SHOWED: A. Terminal ileum, biopsy: Terminal ileal mucosa within normal limits. B. Anastomotic ulcer, biopsy: Ileocolonic mucosa with patchy active inflammation and fragment of ulcer material. C. Colon, sigmoid, biopsy: Colonic mucosa within normal limits. D. Rectum, biopsy: Rectal mucosa within normal limits. Comment: No dysplasia or granulomata are seen 07/02/21 SIGMOIDOSCOPY SHOWED:Focal 2-4 cms area of ulcerations just proximal to the ileo-colic anastomosis - multiple biopsies were obtained.? Normal small bowel mucosa proximally. No polyps were detected. Decreased vascularity due to inactive Crohn's disease in the colon - surveillance biopsies were obtained. Plan:? Repeat Colonoscopy interval based on path results - in 2 years if no dysplasia on colon biopsies. BIOPSIES SHOWED: A.? Terminal ileum, biopsy:? Ileocolonic mucosa with mild crypt disarray; otherwise within normal limits. B.? Colon, 25 cm, biopsy:? Colonic mucosa within normal limits. C.? Colon, 15 cm, biopsy:? Colonic mucosa within normal limits. D.? Colon, 5 cm, biopsy:? Colonic mucosa within normal limits. COMMENT:? No dysplasia or granulomata are seen. 05/2018 FLEXIBLE SIGMOIDOSCOPY SHOWED:No polyps seen.Dilated small bowel with scattered 1 -1.5 cms ulcers througout - biopsies were obtained for histology and viral cultures. Significant amounts of stool not seen in the small intestine. Ileo-colic anastomosis at 35 cms. Circumferential ulcers with cobblestone appearance - multiple biopsies were obtained. Colonoscope passed easily through the anastomosis and no obstruction noted. Endoscopic appearance suggestive of Crohn's disease - other possibilities include CMV infection or ischemic ulcers related to past surgery/ small bowel dilation. Plan: Await pathology results. Resume a clear liquid diet as tolerated until biopsy results are available. Repeat Colonoscopy interval based on path results. BIOPSIES SHOWED: A.? SMALL BOWEL ULCER, BIOPSIES:? FRAGMENTS OF SMALL INTESTINAL MUCOSA WITH ACTIVE ILEITIS AND ULCERATION WITH RARE CYTOMEGALOVIRUS INCLUSIONS (SEE NOTE). B.? COLON, ULCER, BIOPSIES:? FRAGMENTS OF SMALL INTESTINAL AND COLONIC MUCOSA AND GRANULATION TISSUE WITH MILD CHRONIC ACTIVE COLITIS (SEE NOTE). C.? RECTUM, BIOPSIES:? FRAGMENTS OF HYPERPLASTIC COLONIC MUCOSA. NOTE:? THERE IS CRYPT ARCHITECTURAL DISTORTION, GLANDULAR BUDDING AND SUBMUCOSAL MIXED INFLAMMATORY INFILTRATES.? THESE FINDINGS MAY BE DUE TO THE CMV INFECTION, BUT THERE MAY BE UNDERLYING CROHN'S DISEASE OR ULCERATIVE COLITIS.? RECOMMEND TREATING CMV INFECTION AND FOLLOW-UP ENDOSCOPY WITH BIOPSIES TO RULE OUT INFLAMMATORY BOWL DISEASE. TODAY'S VISIT: Meredith presents in office today for a scheduled 5 week FU. CC; Pt recently started on humira following nurse instruction. Pt also had lab work completed that was ordered at their last visit. Pt reports that they have had slight improvements in their sx since their last visit. However, they do feel that they are still experiencing their chronic sx, particularly the bloating. Pt denies any difficulties with the humira injections to this point. Took her 1st Humira injection on 03/02/24 and will be taking the 2nd injection on 03/16/24 Taking iron once a day - can feel a little dizzy climbing stairs Feels she is wobbly Continues to feel bloated and has been eating less Had a good BM last night. Sometimes she feels she has to push. Stool are darker since she started taking iron. PAST VISITS: Discharged home on 01/22/24 on a prednisone taper. Feels weak with intermittent dizziness and does not feel herself Prescription for prednisone was ? miswrittent and she has been taking 1 tab daily and to increase to 2 tab on week 2 and then 3 tab on week 3 Sitting up all the time - does not want to lay down Flex sig and biopsy results reviewed Sometimes I get flared up Has been taking more salads Can have pain and feels bloated. Tries to go and stool feels stuck at the end and unable to expell Takes Miralax prn if she is bloated and stool gets stuck - once every two weeks. Denies cough and does'nt think she has a fever. Having diarrhea - 3 BMs yesterday and twice today Diarrhea has improved since hospitalization and denies any blood in the stool PAST VISITS: She was advised to take Miralax once a week. Scheduled for breast reduction on 07/20/23 and unable to lie on her side for 8 weeks. She would like to reschedule to spring. Sometimes I cant go and sometimes it hurts to have a BM Noted blood in the stools last few days since she was pushing too hard and straining to go Taking Pentasa 4 times a day. Has a powder at home and has not been using it. Had an episode of nausea, vomiting and diarrhea a few weeks ago which lasted 24 hrs. She is doing well now. Had dark stools after she has spinach and broccoli. Lab and stool tests were reviewed - CRP slightly elevated. Planning to travel to [place] with her niece in January Going to [place] in March. Fecal calprotectin were normal. Bloating has resolved. Going normal with 1-3 times a day with passage of normal stools Cold sweats have resolved - thinks it was related to COVID infection. Had her 2nd Booster for COVID a few months Feels she has an infection. Intermittent cold sweats. Constantly going to the bathroom to urinate. Diarrhea is not as bad as while she was in the hospital. BMs are dark (blackish) Has been having a few loose pudding like BMs per day. Concerned about recurrent CMV infection. Upset since her sister with PMR in Nov 07, 2021. An aunt and sister as well Has to go to [place] in January to help her aunt. Going to the bathroom regularly. Once in a great while, she can see some blood (a little dot) Can have some abdominal pain - when she was very stressed and not eating right. Has been very stressed. Has been doing well since she had the subtotal colectomy without recurrent SBO. Has been taking the Pentasa 1 gram 4 times a day for the past several yrs. Continues to have heartburn - comes on all of a sudden - mostly at night. Takes Senna if she does not have a BM for a day and is able to go the next morning. Patient denies major cardiac or pulmonary problems, loud snoring or sleep apnea. Denies problems with anesthesia in the past. Denies being on chronic anticoagulation. Patient denies known family history of other GI malignancies. Sister had cancer in one of the polyps and had surgery and is doing fine now. PAST GI HISTORY BY REVIEW OF MEDICAL RECORDS: IBD SUMMARY YEAR OF DIAGNOSIS:? 2000 DISEASE EXTENT:Colon and small intestines LAST COLONOSCOPY FINDINGS:06/2021 as noted above NEXT COLON DUE: 2022 EXTRAINTESTINAL MANIFESTATIONS: Denies skin rash, joint pains or eye pain GI SURGERY:? Colon resection 2000 - subtotal colectomy. CURRENT THERAPY:? Pentasa 1 gram 4 times daily, Senna for constipation VACCINATIONS: Flu shot:? Gets Flu shot every year. Hep A/B serology /vaccination:?unsure [facility] Medical History Partial small bowel obstruction History of small bowel obstruction Dyslipidemia Impaired fasting glucose History of COVID-19 GERD (gastroesophageal reflux disease) Morbid obesity Hyperparathyroidism Overactive bladder Upper back pain, chronic Large breasts Vitamin D deficiency Osteoporosis Postmenopause History of shingles Acquired hypothyroidism RLS (restless legs syndrome) Surgical History Hx of sigmoidoscopy Hx of reduction mammoplasty History of bowel resection History of esophagogastroduodenoscopy Hx of colonoscopy Hx of cholecystectomy Hx of tonsillectomy History of appendectomy H/O partial resection of colon Family History Father Lung cancer Mother Diabetes Hypertension Sister No problems noted. Mother Diabetes Paternal Grandmother Diabetes Father Lung cancer Paternal Uncle Lung cancer Social History Household Members: Family Housing: Apartment Are you a primary pediatric care coordinator to a significant other at home: No Do you presently have visiting nurse or other home services: No Alcohol intake: never Patient Tobacco Use Status: Never used Tobacco e-Cigarette/Vaping Use: Never Used Second Hand Smoke Exposure: No Advance Directives Date on File: 09/13/22 service: No Current occupational status: unemployed and disabled Current occupation: [employer] Cognitive needs: No Hearing needs: No Vision needs: Yes Female Reproductive History Menstrual Age of Menarche: 12 Review of Systems Const All systems reviewed & are unremarkable except as noted in HPI and below Physical Exam Vital Signs: Last Vital Signs Pulse 70 03/07/24 10:50 BP 124/76 03/07/24 10:50 Pulse Ox 98 03/07/24 10:50 Oxygen Delivery Method Room Air 03/07/24 10:50 BMI result Body Mass Index 33.7 Const General: healthy appearing and no acute distress Nutritional Appearance: obese Orientation/consciousness: patient oriented x3 HEENT Head: Yes normal to inspection Ears: hearing grossly normal bilaterally Eyes Sclerae: sclerae normal Pupils: Equal, round and reactive pupils present Neck Neck: Yes normal visual inspection Chest Chest palpation & inspection: normal inspection of the chest Resp Effort & Inspection: normal respiratory effort Auscultation: clear to auscultation bilaterally Cardio Palpation: normal PMI Rate: regular rate Rhythm: regular rhythm Heart sounds: S1 normal heart sound present, S2 normal heart sound present and no murmurs GI Palpation (GI): Soft to palpation, nontender and No hepatosplenomegaly present Auscultation: normal bowel sounds Rectal Exam - Female: deferred Skin General skin exam: no rashes or lesions noted Neuro General: patient oriented x3, gait normal and moves all extremities Cranial nerves: Yes Equal, round and reactive pupils present Psych Appearance: grossly normal Mental Status: mental status grossly normal Assessment & Plan Assessment & Plan (1) GERD (gastroesophageal reflux disease): Code(s): K21.9 - Gastro-esophageal reflux disease without esophagitis Category: Medical Qualifiers: Esophagitis presence: without esophagitis Qualified Code(s): K21.9 - Gastro-esophageal reflux disease without esophagitis (2) Crohn's colitis: Code(s): K50.10 - Crohn's disease of large intestine without complications Category: Medical Qualifiers: Digestive disease complication type: unspecified complication Qualified Code(s): K50.119 - Crohn's disease of large intestine with unspecified complications (3) Microcytic hypochromic anemia: Code(s): D50.9 - Iron deficiency anemia, unspecified Category: Medical Plan YF with Crohn's disease involving the small bowel and colon and is status post subtotal colectomy. Patient has been followed by Dr. Jordan since 2012. 05/2018 Flex Sig showed?Dilated small bowel with scattered 1 -1.5 cms ulcers througout - biopsies were positive for CMV inclusion and patient was treated for CMV. Ileo-colic anastomosis at 35 cms. Circumferential ulcers with cobblestone appearance - multiple biopsies were obtained 06/2021 Flexible Sig was performed and showed: Focal 2-4 cms area of ulcerations just proximal to the ileo-colic anastomosis - multiple biopsies were obtained.? Normal small bowel mucosa proximally. No polyps were detected. Decreased vascularity due to inactive Crohn's disease in the colon - surveillance biopsies were obtained. Plan:? Repeat Colonoscopy interval based on path results - in 2 years if no dysplasia on colon biopsies (due 06/2023) Patient's symptoms are well controlled with Pentasa 1 g 4 times daily. 07/2021 Pt was started on azathioprine due to focal area of ulcerations in the TI proximal to the anastomosis. Pt was hospitalized from 05/28 to 06/03/22 at [facility] COVID infection associated with diarrhea She was treated with Flagyl and Levqaquin for 7 days. Pt had postprandial abd discomfort with bloating after her hospitalization which has resolved. Pt was advised to go on a FODMAP diet for 6 weeks CRP slightly elevated at 0.61 and stool calprotectin was normal. 06/29/23 Scheduled for breast reduction on 07/20/23 and unable to lie on her side for 8 weeks. Meredith would like to reschedule her colonoscopy from 08/28/23 to spring. 12/07/23 Sometimes I get flared up Can have pain and feels bloated. Tries to go and stool feels stuck at the end and unable to expell Takes Miralax prn if she is bloated and stool gets stuck - once every two weeks. She was advised to take Miralax once a week. Repeat Flex Sig in 2-3 years for CD surveillance 03/07/25 Took her 1st Humira injection on 03/02/24 and will be taking the 2nd injection on 03/16/24 Taking iron once a day - can feels a little dizzy climbing stairs Pt advised to take Miralax 2-3 times a week for bloating and constipation FU in 2 months Coding Level of Care Code Est Pt Level 4 (28906) Diagnoses Gastroesophageal reflux disease without esophagitis K21.9 Esophagitis presence: without esophagitis Crohn's disease of colon with complication K50.119 Digestive disease complication type: unspecified complication Microcytic hypochromic anemia D50.9 Time Spent (min) 21
[2024-03-07 10:50] VITALS: BP 124/76; PULSE 70; O2SAT 98; BMI 33.7
== END 2024-03-07 11:49 | disposition home or self-care (01) ==
PROVIDERS: PCP Internal Medicine; Visit Provider Internal Medicine Gastroenterology
DX: K21.9 Gastro-esophageal reflux disease without esophagitis (principal); K50.119 Crohn's disease of large intestine with unspecified complications; D50.9 Iron deficiency anemia, unspecified
CPT/HCPCS: 99499

== ENCOUNTER → 2024-03-07 10:40 | Outpatient (BNVA) | payer OTHER, SELFPAY | PROVIDERS: PCP Internal Medicine; Visit Provider Internal Medicine Gastroenterology ==

== ENCOUNTER 2024-03-13 10:06 | Outpatient (AMB) | payer OTHER, SELFPAY ==
--- NOTE | 2024-03-13 10:24 | A.OFFVIS_ITS ---
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 No complaints. Last Pap/HPV was negative in 11/08 Last Mammogram was BI-RADS 2 in 03/10 Last flexible sigmoidoscopy was done in 12/09, the recommendation was to repeat in 2-3 years [facility] Medical History Microcytic hypochromic anemia History of small bowel obstruction Intermittent lightheadedness Dyslipidemia Impaired fasting glucose History of COVID-19 GERD (gastroesophageal reflux disease) Morbid obesity Hyperparathyroidism Overactive bladder Upper back pain, chronic Large breasts Vitamin D deficiency Osteoporosis Postmenopause History of shingles Acquired hypothyroidism RLS (restless legs syndrome) Surgical History Hx of sigmoidoscopy Hx of reduction mammoplasty History of bowel resection History of esophagogastroduodenoscopy Hx of colonoscopy Hx of cholecystectomy Hx of tonsillectomy History of appendectomy H/O partial resection of colon Family History Father Lung cancer Mother Diabetes Hypertension Sister No problems noted. Mother Diabetes Paternal Grandmother Diabetes Father Lung cancer Paternal Uncle Lung cancer Social History Household Members: Family Housing: House Are you a primary respite care provider to a significant other at home: No Do you presently have visiting nurse or other home services: No Alcohol intake: current Alcohol intake frequency: holidays/special occasions only Patient Tobacco Use Status: Never used Tobacco e-Cigarette/Vaping Use: Never Used Second Hand Smoke Exposure: No Advance Directives Date on File: 05/31/22 service: No Current occupational status: unemployed and disabled Current occupation: [employer] Cognitive needs: No Hearing needs: No Vision needs: Yes Female Reproductive History Menstrual Age of Menarche: 12 Date of last pap smear: 11/10/20 Date of Mammogram: 03/14/23 Date of last Bone Density Screenin08/16/23 Review of Systems Const All systems reviewed & are unremarkable except as noted in HPI and below Card Reports as per HPI Resp Reports as per HPI GI Reports as per HPI and Reports no additional complaints Reports as per HPI Physical Exam Const General: cooperative, healthy appearing and comfortable Chest Chest palpation & inspection: normal inspection of the chest and normal palpat ion of entire chest wall Breast/axilla inspection: normal inspection of the breasts and normal inspection of the axillae Breast/axilla palpation: normal palpation of the breasts, normal palpation of the axillae and no axillary lymphadenopathy Resp Effort & Inspection: normal respiratory effort Auscultation: clear to auscultation bilaterally Percussion: percussion normal Cardio Palpation: normal PMI Rate: regular rate Rhythm: regular rhythm Heart sounds: no murmurs and no rubs Peripheral pulses: Peripheral pulses 2+ throughout GI Inspection: Yes normal to inspection Palpation (GI): Soft to palpation, nontender, no guarding, not rigid and No hepatosplenomegaly present Percussion: Yes normal to percussion Auscultation: normal bowel sounds Rectal Exam - Female: deferred General: Yes bladder normal to palpation External Female Exam: No lesion Speculum Exam - Vagina: normal appearance of the vagina, normal palpation, normal vaginal discharge and not erythematous Speculum Exam - Cervix: normal appearance of the cervix and normal palpation Bimanual exam- vagina & uterus: normal bimanual exam, normal palpation, uterine size normal, bladder normal to palpation, consistency normal and normal palpation Bimanual Exam- Adnexa, other: normal adnexae, no masses and no tenderness Assessment & Plan Assessment & Plan (1) Well woman exam: Code(s): Z01.419 - Encounter for gynecological examination (general) (routine) without abnormal findings Category: Medical Plan: Co testing not indicated this year. Counseled the patient about the recommended dietary allowance of 1200 mg of Calcium & 600 IU of vitamin D. Mammogram ordered. The patient was instructed to perform monthly self-breast exams and schedule annual exam in a year. All questions answered and the patient verbalized understanding. Orders: Orders MM tomosynthesis screening BI Today Z12.31 - Encounter for screening mammogram for malignant neoplasm of breast Coding Level of Care Code Est Pt Prev Care 40-64y(94746) Diagnoses Well woman exam Z01.419
[2024-03-13 10:26] VITALS: BP 110/64; BMI 33.6
== END 2024-03-13 10:52 | disposition home or self-care (01) ==
PROVIDERS: PCP Internal Medicine; Visit Provider Obstetrics & Gynecology
DX: Z01.419 Encounter for gynecological examination (general) (routine) without abnormal findings (principal)
CPT/HCPCS: 99396

== ENCOUNTER → 2024-03-13 10:06 | Outpatient (BNVA) | payer OTHER, SELFPAY | PROVIDERS: PCP Internal Medicine; Visit Provider Obstetrics & Gynecology | DX: Z01.419 Encounter for gynecological examination (general) (routine) without abnormal findings (principal) | CPT/HCPCS: 99396 ==

== ENCOUNTER 2024-03-15 10:41 | Outpatient (REF) | payer OTHER, SELFPAY ==
--- NOTE | ~2024-03-15 | MM_ITS ---
EXAMINATION: MM SCREENING DIGITAL BREAST TOMOSYNTHESIS, BILATERAL CLINICAL INFORMATION: Screening. Asymptomatic. The patient has a history of bilateral breast reduction changes occurred since the last mammogram from 2022. COMPARISON: Mammography: This study is compared with prior exams dating back to 2017. TECHNIQUE: Digital breast tomosynthesis is performed in both the craniocaudal and mediolateral oblique views along with computer-aided detection (CAD). Synthesized 2D images are generated from the tomosynthesis. FINDINGS: There are scattered areas of fibroglandular density (ACR BI-RADS breast composition Category b). There are no significant masses, abnormal calcifications, or other abnormalities. There are post reduction changes in each breast. MM/MM tomosynthesis screening BI IMPRESSION: No mammographic evidence of malignancy. ASSESSMENT: BI-RADS BI-RADS 2 - Benign Findings RECOMMENDATION: Routine annual mammography screening. 1 year F/U This examination should not preclude the clinical evaluation of a suspicious palpable abnormality. This patient's information was entered into a reminder system with a target due date for their next mammogram.
== END 2024-03-15 10:42 | disposition home or self-care (01) ==
LOC: HO.MAMMO 10:41
PROVIDERS: PCP Internal Medicine; Visit Provider Internal Medicine
DX: Z12.31 Encounter for screening mammogram for malignant neoplasm of breast (principal)
CPT/HCPCS: 77063; 77067

== ENCOUNTER → 2024-03-15 11:15 | Outpatient (BNV) | payer OTHER, SELFPAY | PROVIDERS: PCP Internal Medicine; Visit Provider Radiology Diagnostic Radiology | DX: Z12.31 Encounter for screening mammogram for malignant neoplasm of breast (principal) | CPT/HCPCS: 77063; 77067 ==

== ENCOUNTER 2024-03-25 10:51 | Outpatient (RCR) | payer OTHER, SELFPAY ==
[2024-03-25 10:58] VITALS: BP 108/62; PULSE 77; RESP 18; TEMP 36.7; O2SAT 99
== END 2024-06-19 08:57 | disposition home or self-care (01) ==
LOC: HO.INF 10:51
PROVIDERS: Visit Provider Internal Medicine Gastroenterology
DX: Z13.89 Encounter for screening for other disorder (principal)
CPT/HCPCS: J1756

== ENCOUNTER 2024-03-27 11:44 | Outpatient (AMB) | payer OTHER, SELFPAY ==
--- NOTE | 2024-03-27 11:53 | A.OFFPC_ITS ---
Vital Signs 03/27/24 11:54 Height 5 ft 3 in Weight 186 lb BMI 32.9 BP 112/72 Blood Pressure Location Rt brachial Position Sitting Pulse 80 Pulse Source Pulse Oximeter Pulse Oximetry (%) 97 Oxygen Delivery Method Room Air Intake Visit Reasons: F/U well visit Intake Note: Pt is here today feeling with no energy Allergies No Known Allergies [No Known Allergies*] Allergy (Verified 03/27/24 12:11) Medication List - Last Reconciled 03/27/24 by Yuli Garner MD adalimumab (Humira Pen) inject one - 40 mg/0.8 mL pen every 2 weeks subcutaneously every 14 days; 30 days calcium carbonate (Calcium 600) 600 mg PO BID 90 days cetirizine (Allergy Relief (cetirizine)) 10 mg PO DAILY PRN cholecalciferol (vitamin D3) 250 mcg PO MOFR ferrous sulfate 325 mg PO DAILY levothyroxine 88 mcg PO QAM mirabegron ER (Myrbetriq) 25 mg PO DAILY pantoprazole 40 mg PO DAILY Tobacco use date assessed: 03/27/24 Dental Screening Dental Screen Date: 03/27/24 Did you have a dental visit in the last 12 months?: No Did you have a dental problem in the last 6 months where you did not have access to dental care?: No Was dental information given to patient?: No HPI F/U well visit HPI Details 63-year-old lady with Crohn's colitis cu rrently on Humira, has hypothyroidism, seasonal allergies and overactive bladder with urinary incontinence, here today for follow-up. She has been complaining of feeling tired still. Has been taking her medicines, but sometimes forgets to take her iron supplements. Denies any chest pain, no lightheadedness but has been having easy fatigability on moderate exertion. She had labs done 03/07/2024 which showed presence still of microcytic hypochromic anemia, thyroid levels are within normal limit [facility] Medical History (Updated 03/31/24 @ 22:57 by Yuli Garner MD) Microcytic hypochromic anemia History of small bowel obstruction Intermittent lightheadedness Dyslipidemia Impaired fasting glucose History of COVID-19 GERD (gastroesophageal reflux disease) Morbid obesity Hyperparathyroidism Overactive bladder Upper back pain, chronic Large breasts Vitamin D deficiency Osteoporosis Postmenopause History of shingles Acquired hypothyroidism RLS (restless legs syndrome) Surgical History Hx of sigmoidoscopy Hx of reduction mammoplasty History of bowel resection History of esophagogastroduodenoscopy Hx of colonoscopy Hx of cholecystectomy Hx of tonsillectomy History of appendectomy H/O partial resection of colon Family History Father Lung cancer Mother Diabetes Hypertension Sister No problems noted. Mother Diabetes Paternal Grandmother Diabetes Father Lung cancer Paternal Uncle Lung cancer Social History Household Members: Family Housing: House Are you a primary home health care worker to a significant other at home: No Do you presently have visiting nurse or other home services: No Alcohol intake: current Alcohol intake frequency: holidays/special occasions only Patient Tobacco Use Status: Never used Tobacco e-Cigarette/Vaping Use: Never Used Second Hand Smoke Exposure: No Advance Directives Date on File: 05/31/22 service: No Current occupational status: unemployed and disabled Current occupation: [employer] Cognitive needs: No Hearing needs: No Vision needs: Yes Female Reproductive History Menstrual Age of Menarche: 12 Questionnaire PHQ-9 Over the last 2 weeks, how often have you been bothered by any of the following problems? Depression Screening Interpretation: Negative Depression Screening Done: Yes Source: Developed by Drs. Brendon Muñoz, Kasey Becker, Raul Sweet and colleagues, with an educational bakari from [employer]. Thrive Questionnaire Date Thrive assessed: 01/19/24 NICOLE-7 AMB Questionnaire NICOLE-7 Date NICOLE - 7 assessed: 10/27/23 Source: Developed by Drs. Brendon Muñoz, Kasey Becker, Raul Sweet and colleagues, with an educational bakari from [employer]. Review of Systems Const Reports as per HPI Eyes Denies change in vision ENT Reports no additional complaints Card Denies chest pain, Denies chest pain with activity and Denies irregular heart rhythm Resp Reports as per HPI, Denies cough and Denies wheezing GI Denies abdominal pain, Denies melena, Denies bloating, Denies hematochezia, Denies change in bowel habits and Denies heartburn Reports no additional complaints Musc Reports no additional complaints Skin/Breast Denies rash Neuro Reports no additional complaints and Denies Abnormal speech present Endo Reports no additional complaints Domenic/Lymph Denies easy bleeding and Denies easy bruising Aller/Immun Denies wheezing Physical exam (Primary Care) Vital Signs: Last Vital Signs Pulse 80 03/27/24 11:54 BP 112/72 03/27/24 11:54 Pulse Ox 97 03/27/24 11:54 Oxygen Delivery Method Room Air 03/27/24 11:54 BMI result Body Mass Index 32.9 Tobacco/Smoking Status: Tobacco use Status Tobacco use date assessed 03/27/24 03/27/24 11:59 Patient Tobacco Use Status Never used Tobacco 03/27/24 11:59 e-Cigarette/Vaping Use Never Used 03/27/24 11:59 Depression Screening Interpretation: Negative Thrive Assessment: Date of Thrive Assessment Date Thrive assessed 01/19/24 03/27/24 11:59 Const General: comfortable and no acute distress Nutritional Appearance: obese Orientation/consciousness: patient oriented x3 HENMT Mouth: Normal oral and palatal mucosa present, oropharynx normal and moist mucous membranes Eyes Other: Anicteric, pale palpebral conjunctiva Pupils: Equal, round and reactive pupils present EOM: EOMs intact bilaterally Neck Neck: Yes full ROM, Yes no lymphadenopathy and Yes supple Resp Effort & Inspection: normal respiratory effort and able to speak in complete sentences Auscultation: clear to auscultation bilaterally Cardio Other: S1-S2 present regular rate and rhythm GI Inspection: Yes obesity Palpation (GI): Soft to palpation, nontender, no guarding and no masses Auscultation: normal bowel sounds Back/Spine/Pelvis Back: No back tenderness Skin General skin exam: no rashes or lesions noted Neuro General: patient oriented x3, gait normal, moves all extremities, no focal motor deficits and normal sensation to monofilament Cranial nerves: Yes Equal, round and reactive pupils present Speech: No Abnormal speech present Extrem General: Yes full ROM, Yes no joint enlargement, Yes no clubbing, cyanosis or edema, Yes no calf tenderness and Yes normal gait Results Reviewed Results Reviewed: Name: Meredith Bravo Age/Sex: 63/F : 1960 Unit#: [id number] Attend Dr: Yuli Garner MD Re02/22/24 Status: DEP REF Location: [facility] Disch: SPEC : [id number] JOSE: 02/22/24 STATUS: COMP REQ : [id number] RECD: 02/22/24-[address]: Yuli Garner MD COMP: 02/22/24 ENTERED: 02/22/[address]: ORDERED: CBC Auto Diff Test Result Flag Reference WBC 7.3 4.8-10.8 X10*3/uL RBC 4.25 4.20-5.50 X10*6/uL HGB 9.1 L 12.0-16.0 g/dl HCT 31.8 L 37.0-47.0 % MCV 74.8 L 80.0-98.0 fL MCH 21.4 L 27.0-33.0 pg MCHC 28.6 L 31.0-35.0 g/dl RDW 20.8 H 11.0-16.0 % PLT 526 # H 160-400 X10*3/uL MPV 9.5 9.4-12.3 fL Neut Pct Auto 60.5 45-73 % ImGran Pct Auto 0.6 H 0.0-0.4 % Lymp Pct Auto 32.2 20-40 % Weld Pct Auto 5.0 2-11 % Eos Pct Auto 1.1 0-4 % Baso Pct Auto 0.6 0-2 % NRBC Pct Auto 0.0 0.0-0.2 /100WBC ANC Neut Abs # 4.4 2.0-8.3 x10*3/uL ImGran Abs Auto 0.04 H 0.00-0.03 X10*3/uL Lymph Abs Auto 2.3 1.2-4.9 X10*3/uL Weld Abs Auto 0.4 0.1-1.2 X10*3/uL Eos Abs Auto 0.1 0.0-0.4 X10*3/uL Baso Abs Auto 0.0 0.0-0.2 X10*3/uL NRBC Abs Auto 0.000 0.0-0.012 X10*3/uL isaura: Meredith Bravo Age/Sex: 63/F : 1960 [id number] Unit#: [id number] Attend Dr: Yuli Garner MD Re02/22/24 Status: DEP REF Location: [facility] Disch: SPEC : [id number] JOSE: 02/22/24 STATUS: COMP REQ : [id number] RECD: 02/22/24-[address]: Yuli Garner MD COMP: 02/22/24 ENTERED: 02/22/[address] [facility] [address]: ORDERED: Met Prof Fast, IRON PROF, Vitamin D 25-OH, Free T4, TSH Test Result Flag Reference Sodium 143 135-145 mmol/L Potassium 4.1 3.3-5.1 mmol/L CL 109 H 96-108 mmol/L CO2 20 L 22-29 mmol/L Gap 18 12-20 BUN 21 H 9-16 mg/dL Creat 0.94 0.5-1.4 mg/dL EGFR > 60 NOTE: For -Russian individuals, multiply the result by 1.210. Chronic Kidney Disease: Estimated GFR < 60 mL/min/1.73m2 Severe Kidney Disease: Estimated GFR < 15 mL/min/1.73m2 FBS 93 60-99 mg/dL CA 9.1 8.4-10.2 mg/dL Iron 16 L 30-160 mcg/dL TIBC 316 228-428 mcg/dL Saturation 5 L 15-50 % UIBC 300 ug/dL Vit D 25-OH Tot 60.4 >30 ng/mL Health Based Reference Values* < 20 ng/mL Deficient 20-30 ng/mL Insufficient > 30 ng/mL Sufficient *Hannah FLORES. N Engl J Med. 2007;357:266-280 Care must be taken in interpreting Vitamin D results from different laboratories and methodologies. Published data demonstrated that results from patients undergoing hemodialysis may show a negative bias when tested with various automated 25-OH vitamin D assays when compared to LC-MS/MS. When testing samples from patients whose predominant form of Vitamin D is Vitamin D2, such as patients receiving Vitamin D2 supplementation, results that are subtherapeutic should be confirmed with another method such as LC-MS/MS. Free T4 1.04 0.71-1.85 ng/dL TSH 3rd Gen. 3.08 0.32-4.0 uIU/mL Note: A sustained TSH level above 2.5 uIU/mL may warrant further investigation. TSH 3rd Generation ([facility]) Assessment and Plan Assessment & Plan (1) Microcytic hypochromic anemia: Code(s): D50.9 - Iron deficiency anemia, unspecified Plan: Continue taking ferrous sulfate 325 mg taken once a day, take it with either vitamin-C tablets orange juice for better absorption. To be started on Venofer, but has been having problems with access, has an appointment to have in PICC line inserted (2) Crohn's colitis: Code(s): K50.10 - Crohn's disease of large intestine without complications Qualifiers: Digestive disease complication type: unspecified complication Qualified Code(s): K50.119 - Crohn's disease of large intestine with unspecified complications Plan: Currently on Humira followed by GI (3) Acquired hypothyroidism: Code(s): E03.9 - Hypothyroidism, unspecified Plan: Thyroid levels are within normal limits, continue on levothyroxine 88 mcg daily in a.m. Coding Level of Care Code Est Pt Level 4 (89162) Complex EM visit Add On G2211 Diagnoses Microcytic hypochromic anemia D50.9 Crohn's disease of colon with complication K50.119 Digestive disease complication type: unspecified complication Acquired hypothyroidism E03.9
[2024-03-27 11:54] VITALS: BP 112/72; PULSE 80; O2SAT 97; BMI 32.9
== END 2024-03-27 17:15 | disposition home or self-care (01) ==
PROVIDERS: PCP Internal Medicine; Visit Provider Internal Medicine
DX: D50.9 Iron deficiency anemia, unspecified (principal); K50.119 Crohn's disease of large intestine with unspecified complications; E03.9 Hypothyroidism, unspecified
CPT/HCPCS: 99214; G2211

== ENCOUNTER 2024-03-28 12:23 | Outpatient (REF) | payer OTHER, SELFPAY ==
[2024-03-28 12:48] LABS: MANUAL DIFF FLAG NO
[2024-03-28 13:28] LABS: Basophils Absolute Auto 0.1 X10*3/uL (0.0-0.2); Eosinophils Absolute Auto 0.1 X10*3/uL (0.0-0.4); Eosinophils Percent Auto 2.2 % (0-4); Hematocrit 39.4 % (37.0-47.0); Hemoglobin 11.9 g/dl (12.0-16.0); Imm Gran Abs Auto 0.02 X10*3/uL (0.00-0.03); Imm Gran Pct Auto 0.3 % (0.0-0.4); Lymphocytes Absolute Auto 1.9 X10*3/uL (1.2-4.9); Lymphocytes Percent Auto 32.5 % (20-40); Mean Corpuscular HGB Conc 30.2 g/dl (31.0-35.0); Mean Corpuscular Volume 82.8 fL (80.0-98.0); Monocytes Absolute Auto 0.4 X10*3/uL (0.1-1.2); Monocytes Percent Auto 5.9 % (2-11); Neutrophils Absolute Auto 3.5 x10*3/uL (2.0-8.3); Neutrophils Percent Auto 58.1 % (45-73); Platelet Count 345 X10*3/uL (160-400); Red Blood Count 4.76 X10*6/uL (4.20-5.50)
[2024-03-28 14:46] LABS: Ferritin 24 ng/mL (10-250)
[2024-03-28 15:44] LABS: Anion Gap 13 (12-20); Blood Urea Nitrogen 14 mg/dL (9-16); Calcium 9.5 mg/dL (8.4-10.2); Carbon Dioxide 27 mmol/L (22-29); Chloride 107 mmol/L (96-108); Estimated Glomerular Filt Rate 58; Glucose Random 101 mg/dL (60-115); Potassium 3.7 mmol/L (3.3-5.1); Sodium 143 mmol/L (135-145)
== END 2024-03-28 12:24 | disposition home or self-care (01) ==
LOC: HO.LAB 12:23
PROVIDERS: PCP Internal Medicine; Visit Provider Internal Medicine Gastroenterology
DX: D50.9 Iron deficiency anemia, unspecified (principal); R42 Dizziness and giddiness
CPT/HCPCS: 36415; 80048; 82728; 85025

== ENCOUNTER 2024-05-13 10:17 | Outpatient (REF) | payer OTHER, SELFPAY ==
[2024-05-13 11:49] LABS: Blood Urea Nitrogen 15 mg/dL (9-16); Estimated Glomerular Filt Rate > 60
== END 2024-05-13 10:18 | disposition home or self-care (01) ==
LOC: HO.LAB 10:17
PROVIDERS: PCP Internal Medicine; Visit Provider Internal Medicine Gastroenterology
DX: R42 Dizziness and giddiness (principal)
CPT/HCPCS: 36415; 82565; 84520

== ENCOUNTER 2024-06-20 09:38 | Outpatient (AMB) | payer OTHER, SELFPAY ==
--- NOTE | 2024-06-20 09:40 | MHC.OFFVIS ---
Vital Signs 06/20/24 09:41 Height 5 ft 3 in Weight 186 lb 4.65 oz BMI 33.0 BP 120/82 Blood Pressure Location Lt brachial Position Sitting Pulse 73 Pulse Source Pulse Oximeter Intake Visit Reasons: F/U Osteoporosis Intake Note: Patient present today for Osteoporosis follow up visit. Automobile Designer Required: No Accompanied by: Self / Same As Patient Allergies No Known Allergies [No Known Allergies*] Allergy (Verified 06/20/24 09:46) HPI Comments Details: 63 YO Female with PMHx Crohn's disease, Osteoporosis and Hypothyroidism who is seen in F/U for the same.. First diagnosed in 2020 with her most recent BMD. Her prior BMD was completed at [facility] in the early and per her report revealed Osteopenia. After our initial visit we completed a full biochemical assessment which revealed elevated PTH levels. 03/15/2021 Calcium 9.0, PTH 96, Albumin 3.7, Vitamin D 39.4. 24 hour urine calcium was completely WNL. She had an US of the neck which revealed a L sided 1.9 cm hypoechoic lesion which possibly represents a parathyroid adenoma. We repeated labs more recently, and PTH was WNL with a low Vitamin D. 24 hour urine calcium was low. Labs repeated again still with Vitamin D below goal, and PTH elevated. She was started on Calcium supplement BID, and repeat labs revealed PTH had normalized. She did repeat her 24 hour urine collection, but this was an insufficient sample. Labs repeated again reveal Calcium and PTH WNL, and 24 hour urine collection was an adequate sample and WNL. Since that time labs have again been repeated, and PTH is elevated with Calcium WNL but Vitamin D low. She has never been treated for Osteoporosis. She does use protonix daily. Denies ever using anticoagulant, antiepileptic or glucocorticoid medication. Does weight bearing exercise 2-3 days per week in the form of walking or running, for 1 hour at a time. Fracture history: in her 30's she had a traumatic fracture of her arm and wrist after she fell on the stairs. 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 . Menopause was at age 51. Denies history of Kidney stones: Denies family history of Osteoporosis, but her sister did have a traumatic hip fracture. UTD on dental cleanings and sees dentist every 6 months. No planned upcoming dental work or extractions. She has full dentures. DXA dated 01/05/2021: FINDINGS: AP SPINE L1-L4: BMD 0.871 g/cm2, Z-score -2.2, T-score -2.6, osteoporosis. LEFT FEMUR, NECK: BMD 0.738 g/cm2, Z-score -1.5, T-score -2.2, osteopenia. LEFT FEMUR, TOTAL: BMD 0.779 g/cm2, Z-score -1.5, T-score -1.8, osteopenia. US Thyroid: 04/01/2021 Right Thyroid Lobe: 3.5 x 1.3 x 1.0 cm, volume 2.4 mL. Parenchyma: The gland echotexture is heterogeneous. Thyroid vascularity is normal. Left Thyroid Lobe: 4.0 x 1.0 x 1.0 cm, volume 2.1 mL. Parenchyma: The gland echotexture is heterogeneous. Thyroid vascularity is normal. Isthmus: 0.1 cm in maximum AP dimension. No focal thyroid nodule is seen. NODES: Left level 4 lymph node measuring 1.9 x 0.8 x 1.0 cm with normal architecture. Labs: Laboratory Tests 11/23/22 11/23/22 09:34 09:34 Sodium 142 Potassium 4.6 Creatinine 0.90 Estimated GFR > 60 25-OH Vitamin D Total 25.7 TSH 2.92 Free T4 1.21 PTH Intact 79 H Calcium (PTH Intact) 9.5 Recent PTH was found to be elevated on vitamin-D supplementation and calcium supplementation Dexa 08/16/23 FINDINGS: LEFT FEMUR, NECK: Current: BMD 0.723 g/cm2, Z-score -1.3, T-score -2.3, osteopenia. Baseline: BMD 0.738 g/cm2. LEFT FEMUR, TOTAL: Current: BMD 0.763 g/cm2, Z-score -1.3, T-score -1.9, osteopenia, 2.1% decrease from baseline (<5% change is not significant). Baseline: BMD 0.779 g/cm2. AP SPINE L1-L4: Current: BMD 0.829 g/cm2, Z-score -2.2, T-score -2.9, osteoporosis, 4.8% decrease from baseline (<5% change is not significant). Baseline: BMD 0.871 g/cm2. LEFT FOREARM RADIUS 33%: BMD 0.740 g/cm2, Z-score -0.5, T-score -1.6, osteopenia, 3.0% decrease from baseline (<5% change is not significant). Baseline: BMD 0.763 g/cm2. [facility] Medical History (Updated 03/31/24 @ 22:57 by Yuli Garner MD) Microcytic hypochromic anemia History of small bowel obstruction Intermittent lightheadedness Dyslipidemia Impaired fasting glucose History of COVID-19 GERD (gastroesophageal reflux disease) Morbid obesity Hyperparathyroidism Overactive bladder Upper back pain, chronic Large breasts Vitamin D deficiency Osteoporosis Postmenopause History of shingles Acquired hypothyroidism RLS (restless legs syndrome) Surgical History Hx of sigmoidoscopy Hx of reduction mammoplasty History of bowel resection History of esophagogastroduodenoscopy Hx of colonoscopy Hx of cholecystectomy Hx of tonsillectomy History of appendectomy H/O partial resection of colon Family History Father Lung cancer Mother Diabetes Hypertension Sister No problems noted. Mother Diabetes Paternal Grandmother Diabetes Father Lung cancer Paternal Uncle Lung cancer Social History Household Members: Family Housing: House Are you a primary director career to a significant other at home: No Do you presently have visiting nurse or other home services: No Alcohol intake: current Alcohol intake frequency: holidays/special occasions only Patient Tobacco Use Status: Never used Tobacco e-Cigarette/Vaping Use: Never Used Second Hand Smoke Exposure: No Advance Directives Date on File: 05/31/22 service: No Current occupational status: unemployed and disabled Current occupation: [employer] Cognitive needs: No Hearing needs: No Vision needs: Yes Female Reproductive History Menstrual Age of Menarche: 12 Physical Exam Vital Signs: Last Vital Signs Pulse 73 06/20/24 09:41 BP 120/82 06/20/24 09:41 BMI result Body Mass Index 33.0 Assessment & Plan Assessment & Plan (1) Hyperparathyroidism: Code(s): E21.3 - Hyperparathyroidism, unspecified Category: Medical Plan: Recent PTH was found to be elevated with normal [id number]-[id number] and calcium . Differential includes spurious measurement of PTH elevation or continued presence of either secondary hyperparathyroidism or normocalcemiic primary hyperparathyroidism. She has residual osteoporosis on her DEXA performed in 07/2023 Plan is to repeat calcium, albumin, PTH, 25 hydroxy vitamin-D as well as 24 hour urine for calcium and creatinine at [facility] reference lab (lab [facility]). If results are consistent with primaryt hyperparathyroidism, patient would be a candidate for parathyroid exploration considering underlying osteoporosis. If results are normal at outside lab, then consideration could be given to using a pharmacologic agent for treatment of osteoporosis by other endocrinology or patient's primary care provider Orders: Orders Vitamin D 25-OH Total Today E21.3 - Hyperparathyroidism, unspecified Calcium, 24 Hr Ur Today E21.3 - Hyperparathyroidism, unspecified Calcium Today E21.3 - Hyperparathyroidism, unspecified Albumin Level Today E21.3 - Hyperparathyroidism, unspecified Parathyroid Hormone Intact Today E21.3 - Hyperparathyroidism, unspecified Creatinine, 24 Hr Group Today E21.3 - Hyperparathyroidism, unspecified Coding Level of Care Code Est Pt Level 3 (59893) Diagnoses Hyperparathyroidism E21.3
[2024-06-20 09:41] VITALS: BP 120/82; PULSE 73; BMI 33.0
== END 2024-06-20 10:06 | disposition home or self-care (01) ==
PROVIDERS: PCP Internal Medicine; Visit Provider Internal Medicine Endocrinology, Diabetes & Metabolism
DX: E21.3 Hyperparathyroidism, unspecified (principal)
CPT/HCPCS: 99213

== ENCOUNTER → 2024-06-20 09:38 | Outpatient (BNVA) | payer OTHER, SELFPAY | PROVIDERS: PCP Internal Medicine; Visit Provider Internal Medicine Endocrinology, Diabetes & Metabolism | DX: E21.3 Hyperparathyroidism, unspecified (principal) | CPT/HCPCS: 99212 ==

== ENCOUNTER 2024-08-17 09:56 | Inpatient (IN) | payer OTHER, SELFPAY ==
[2024-08-17] VITALS (7 sets, daily range): BP systolic 111–138; BP diastolic 45–90; PULSE 67–75; RESP 15–18; TEMP 36.2–36.5; O2SAT 94–98; BMI 32.6; BMI 35.3
--- NOTE | ~2024-08-17 | XR_ITS ---
EXAMINATION: XR ABDOMEN KUB CLINICAL INDICATION: ABD pain /abnormal CT ABD / Crohn's disease. COMPARISON: CT abdomen and pelvis of 08/17/2024, KUB of 01/19/2024. TECHNIQUE: 3 AP views of the abdomen. FINDINGS: A 1.0 cm oval density overlying the left hemipelvis was not appreciated on KUB of 01/19/2024, possibly a calculus in the distal ureter or bladder versus other etiology such as ingested substance. Redemonstration of electronic device in the right lower quadrant with lead overlying right sacrum. Degenerative changes in the lumbar spine. Persistent gaseous distention of bowel loops predominantly in the right abdomen as demonstrated on prior CT scan. XR/XR KUB IMPRESSION: 1. A 1.0 cm oval density overlying the left hemipelvis was not appreciated on KUB of 01/19/2024, possibly a calculus in the distal ureter or bladder versus other etiology such as ingested substance. 2. Persistent gaseous distention of bowel loops predominantly in the right abdomen as demonstrated on prior CT scan. This study was presented today August 21, 2024 for interpretation. Stat results provided at this time as requested by referring provider. Electronically signed by: Liusana Michele MD 08/21/2024 08:48 AM [facility]
--- NOTE | ~2024-08-17 | CT_ITS ---
EXAMINATION: CT ABDOMEN AND PELVIS WITH CONTRAST CLINICAL INFORMATION: Persistent lower abdominal pain. COMPARISON: Most recent abdominal radiograph dated 08/20/[address] abdomen/pelvis dated 08/17/2024. TECHNIQUE: Multidetector volumetric images were obtained from the superior aspect of the liver through the pubic symphysis following administration 85 mL of Omnipaque 350 intravenous contrast. Sagittal and coronal reformatted images were obtained on the technologist's workstation. Oral contrast: Yes This CT examination was performed using dose optimization techniques as appropriate, variously including the following: *Automated exposure control *Adjustment of mA and/or kV according to patient size (this includes techniques or standardized protocols for targeted exams where dose is matched to indication/reason for exam; i.e. extremities or head) *Use of iterative reconstruction technique DLP: 657 mGy-cm FINDINGS: LUNG BASES: The visualized lung bases are unremarkable. LIVER, GALLBLADDER, AND BILIARY TREE: The liver is normal in size, shape, and attenuation. No focal hepatic lesion or biliary ductal dilatation is present. Status post cholecystectomy. PANCREAS: Unremarkable. SPLEEN: Unremarkable. ADRENAL GLANDS: Unremarkable. KIDNEYS AND URETERS: Low-lying, malrotated right kidney. Unremarkable left kidney. No renal parenchymal lesion. No renal or ureteral stone. No hydronephrosis or hydroureter. BLADDER: Unremarkable. GASTROINTESTINAL TRACT: The colon is located within the right abdomen consistent with malrotation. Oral contrast reaches the distal small bowel. The small bowel loops are slightly dilated and fluid-filled with air-fluid levels. There is air and stool within the colon. No discrete transition point. Findings could indicate a distal small bowel partial obstruction versus ileus. No significant inflammatory change or wall thickening. Appendix not identified. PERITONEAL CAVITY: No intra-abdominal free air or free fluid. No soft tissue mass or organized fluid collection. ABDOMINAL WALL: No significant hernia is appreciated. LYMPH NODES: No significant lymphadenopathy. VASCULAR: Unremarkable. PELVIC VISCERA: No pelvic mass or fluid collection. OSSEOUS STRUCTURES: Unremarkable. CT/CT abdomen pelvis w IV con IMPRESSION: 1. Mildly dilated and fluid-filled small bowel loops with air-fluid levels. No discrete transition point. Air and stool within the colon. Findings could indicate a partial distal small bowel obstruction versus ileus. 2. No intra-abdominal mass, lymphadenopathy, or ascites. 3. Low-lying, malrotated right kidney. No renal or ureteral stone. No hydronephrosis or hydroureter. Fleischner guidelines were followed. Electronically signed by: Kike Cai MD 08/26/2024 10:17 AM [facility]
--- NOTE | ~2024-08-17 | CT_ITS ---
EXAMINATION: CT ABDOMEN AND PELVIS WITH CONTRAST CLINICAL INFORMATION: Lower abdominal pain. Crohn's disease. COMPARISON: Most recent CT abdomen/pelvis dated 01/18/2024. TECHNIQUE: Multidetector volumetric images were obtained from the superior aspect of the liver through the pubic symphysis following administration 85 mL of Omnipaque 350 intravenous contrast. Sagittal and coronal reformatted images were obtained on the technologist's workstation. Oral contrast: No This CT examination was performed using dose optimization techniques as appropriate, variously including the following: *Automated exposure control *Adjustment of mA and/or kV according to patient size (this includes techniques or standardized protocols for targeted exams where dose is matched to indication/reason for exam; i.e. extremities or head) *Use of iterative reconstruction technique DLP: 584 mGy-cm FINDINGS: LUNG BASES: The visualized lung bases are unremarkable. LIVER, GALLBLADDER, AND BILIARY TREE: The liver is normal in size, shape, and attenuation. No focal hepatic lesion or biliary ductal dilatation is present. Status post cholecystectomy. PANCREAS: Unremarkable. SPLEEN: Unremarkable. ADRENAL GLANDS: Unremarkable. KIDNEYS AND URETERS: Redemonstration of a low lying, malrotated right kidney. Normal renal size. No parenchymal lesion. No renal or ureteral stone. No hydronephrosis or hydroureter. BLADDER: Nondistended and unremarkable. 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 There are multiple fluid-filled and dilated small bowel loops measuring up to 4.6 cm in dimension. There are interposed areas of underdistention with circumferential wall thickening, most prominent within the left abdomen. There are dilated small bowel loops both proximal and distal to the left abdominal findings extending to the level of the pelvis where there is a possible transition point. The distal small bowel is nondistended. The colon is fluid-filled. No pneumatosis. No extraluminal air or organized fluid collection to suggest perforation or abscess formation. Appendix not identified. PERITONEAL CAVITY: No intra-abdominal free air or free fluid. No intra-abdominal mass or organized fluid collection/abscess formation. ABDOMINAL WALL: No significant hernia is appreciated. LYMPH NODES: No lymphadenopathy. VASCULAR: Unremarkable. PELVIC VISCERA: The uterus appears atrophic or absent. OSSEOUS STRUCTURES: Unremarkable. CT/CT abdomen pelvis w IV con IMPRESSION: 1. Redemonstration of malrotation of the bowel with the colon largely located in the right abdomen. Multiple fluid-filled and dilated small bowel loops measuring up to 4.6 cm in dimension. There are interposed areas of underdistention with circumferential wall thickening, most prominent within the left abdomen. There are dilated small bowel loops both proximal and distal to the left abdominal findings extending to the level of the pelvis where there is a possible transition point. The distal small bowel is nondistended. The colon is fluid-filled. Findings are consistent with partial small bowel obstruction. No pneumatosis. No extraluminal air or organized fluid collection to suggest perforation or abscess formation. 2. No intra-abdominal mass, lymphadenopathy, or ascites. Fleischner guidelines were followed. Electronically signed by: Kike Cai MD 08/17/2024 12:40 PM [facility]
--- NOTE | 2024-08-17 10:11 | ED_ITS ---
HPI - Abdominal Pain General Chief Complaint: Abdominal Pain Stated Complaint: flare up Time Seen by Provider: 08/17/24 10:11 Source: patient and old records reviewed Mode of arrival: ambulatory Limitations: no limitations History of Present Illness ED Provider: YONIS ESTEBAN narrative: 63 yo female with PMH of Crohns disease s/p subtotal colectomy on pentasa follows with Dr. Navas, GERD, HLD, hypothyroidism, hyperparathyroidism, osteoporosis here with c/o 1 day of abdominal pain, diarrhea non bloody. No fevers, chills, nausea, vomiting. She feels bloated. She is compliant with all medications. She didn't eat much on giving as she was worried it would bother her Crohns. She is passing gas. MD elicited complaint: abdominal pain Pertinent past history: other (Crohns) Onset (ago): day(s) (1) Pain Consistency: constant Location: periumbilical Severity: moderate Quality: aching Radiation: none Migration to: no migration Exacerbating factors: movement Relieving factors: nothing Context: history of similar episodes Associated symptoms: diarrhea Related Data Home Medications ?Medication ?Instructions ?Recorded ?Confirmed cholecalciferol (vitamin D3) 250 250 mcg PO MOFR 01/18/24 03/07/24 mcg (10,000 unit) capsule mirabegron 25 mg tablet,extended 25 mg PO DAILY 01/18/24 03/07/24 release 24 hr (Myrbetriq) Previous Rx's ?Medication ?Instructions ?Recorded cetirizine 10 mg tablet (Allergy 10 mg PO DAILY PRN allergy 07/11/23 Relief (cetirizine)) symptoms #90 tabs ferrous sulfate 325 mg (65 mg 325 mg PO DAILY #90 tabs 02/21/24 iron) tablet pantoprazole 40 mg tablet,delayed 40 mg PO DAILY #90 tabs 02/22/24 release adalimumab 40 mg/0.8 mL See Rx Instructions subcut Q14D 04/23/24 subcutaneous pen kit (Humira Pen) Crohn's colitis 30 days #2 ea levothyroxine 88 mcg tablet 88 mcg PO QAM #90 tabs 05/06/24 calcium carbonate 600 mg PO BID #180 tabs 07/30/24 Allergies Allergy/AdvReac Type Severity Reaction Status Date / Time No Known Allergies Allergy Verified 08/17/24 10:05 [No Known Allergies*] Review of Systems Review of Systems Constitutional : No Weight loss, No Fever, No Chills ENT/Mouth : No sore throat, No Rhinorrhea Eyes: No Swelling, No Redness Cardiovascular : No Chest Pain, No SOB, NoEdema Respiratory : No Cough, No Sputum, No Wheezing Gastrointestinal : no Nausea, no Vomiting, positive Diarrhea, positive abdominal Pain, No Hematochezia, No Melena Genitourinary : No Dysuria, No Urinary Frequency, No Hematuria, No Urgency Musculoskeletal : No joint pain, No Myalgias, No Joint Swelling Skin : No Skin Lesions, No rash Neuro : No Weakness, No Numbness, No Dizziness, No Headache All other systems reviewed and are negative. [facility] Past Medical History Attestation statement: The following information was validated with the patient. Source: old records reviewed Medical History Microcytic hypochromic anemia History of small bowel obstruction Intermittent lightheadedness Dyslipidemia Impaired fasting glucose History of COVID-19 GERD (gastroesophageal reflux disease) Morbid obesity Hyperparathyroidism Overactive bladder Upper back pain, chronic Large breasts Vitamin D deficiency Osteoporosis Postmenopause History of shingles Acquired hypothyroidism RLS (restless legs syndrome) Surgical History Hx of sigmoidoscopy Hx of reduction mammoplasty History of bowel resection History of esophagogastroduodenoscopy Hx of colonoscopy Hx of cholecystectomy Hx of tonsillectomy History of appendectomy H/O partial resection of colon Family History Family History Father Lung cancer Mother Diabetes Hypertension Sister No problems noted. Mother Diabetes Paternal Grandmother Diabetes Father Lung cancer Paternal Uncle Lung cancer Social History Social History Household Members: Family Housing: House Are you a primary nurse wound care to a significant other at home: No Do you presently have visiting nurse or other home services: No Alcohol intake: never Patient Tobacco Use Status: Never used Tobacco Smoked in Last 30 Days: No e-Cigarette/Vaping Use: Never Used Second Hand Smoke Exposure: No Use of substances other than those prescribed or required for medical reasons: No Advance Directives: Yes Advance Directives on File: Yes Advance Directives Date on File: 05/31/22 Do you have a plan to hurt others: No Plan service: No Current occupational status: unemployed and disabled Current occupation: [employer] Cognitive needs: No Hearing needs: No Vision needs: Yes Physical Exam ED Vital Signs: Vital Signs - 24 hr 08/17/24 10:01 Temperature 97.6 F Pulse Rate 75 Respiratory Rate 18 Blood Pressure 123/73 Pulse Oximetry 98 Oxygen Delivery Method Room Air BMI result Body Mass Index 32.6 Appearance: Alert. Oriented X3. No acute distress. Eyes: Pupils equal, round and reactive to light. ENT: Pharynx normal. Neck: Normal inspection. Neck supple. CVS: Normal heart rate and rhythm. Pulses normal. Respiratory: No respiratory distress. Breath sounds normal. Abdomen: Soft and mild distention with ttp in periumbilical area, no rebound Skin: Skin warm and dry. Normal skin color. Extremities: No lower extremity edema. Neuro: Oriented X 3. No motor deficit. No sensory deficit. Medical Decision Making Medical Decision Making [facility] Narrative: 63 yo female with PMH of Crohns disease s/p subtotal colectomy on pentasa follows with Dr. Navas, GERD, HLD, hypothyroidism, hyperparathyroidism, osteoporosis here with c/o abdominal pain nausea diarrhea x 1 day - no fevers, she is passing gas. She is worried about a crohns flare at this time basic labs, CRP, IVF zofran and IV dilaudid for pain give hx CT scan for SBO/PSBO. Differential Diagnosis Differential Diagnoses: The differential diagnosis associated with the presentation includes PSBO, crohns flair Admission/Observation Consideration of admission/observation: Escalation of care including admission/observation considered admit for IV steroids, bowel rest Consult Healthcare Provider Management of the patient was discussed with: Hospitalist (will admit) and Electrical Prospecting Supervisor (notified surgery clinically she does not have SBO on my exam) Lab Data [facility] Lab Attestation statement: I reviewed the patient's lab results. 08/17/24 10:14 08/17/24 10:14 Labs: Lab Results 08/17/24 08/17/24 Range/Units 10:14 10:52 WBC 7.2 (4.8-10.8) X10*3/uL RBC 4.99 (4.20-5.50) X10*6/uL Hgb 13.7 (12.0-16.0) g/dl Hct 41.9 (37.0-47.0) % MCV 84.0 (80.0-98.0) fL MCH 27.5 (27.0-33.0) pg MCHC 32.7 (31.0-35.0) g/dl RDW 15.9 (11.0-16.0) % Plt Count 384 (160-400) X10*3/uL MPV 9.6 (9.4-12.3) fL Immature Gran % (Auto) 0.4 (0.0-0.4) % Neut % (Auto) 69.2 (45-73) % Lymph % (Auto) 23.5 (20-40) % [place] % (Auto) 4.7 (2-11) % Eos % (Auto) 1.9 (0-4) % Baso % (Auto) 0.3 (0-2) % Lymph # (Auto) 1.7 (1.2-4.9) X10*3/uL [place] # (Auto) 0.3 (0.1-1.2) X10*3/uL Eos # (Auto) 0.1 (0.0-0.4) X10*3/uL Baso # (Auto) 0.0 (0.0-0.2) X10*3/uL Abs Immat Gran (auto) 0.03 (0.00-0.03) X10*3/uL Absolute Neuts (auto) 5.0 (2.0-8.3) x10*3/uL Absolute Nucleated RBC 0.000 (0.0-0.012) X10*3/uL Nucleated RBC % (auto) 0.0 (0.0-0.2) /100WBC Sodium 140 (135-145) mmol/L Potassium 3.8 (3.3-5.1) mmol/L Chloride 109 H (96-108) mmol/L Carbon Dioxide 19 L (22-29) mmol/L Anion Gap 16 (12-20) BUN 14 (9-16) mg/dL Creatinine 1.02 (0.5-1.4) mg/dL Estim Creat Clear Calc 58.6 Estimated GFR 55 Random Glucose 128 H (60-115) mg/dL Calcium 9.4 (8.4-10.2) mg/dL Magnesium 1.7 (1.6-2.6) mg/dL Total Bilirubin 0.5 (0.0-1.0) mg/dL Direct Bilirubin 0.2 (0.0-0.5) mg/dL AST 33 H (5-31) U/L ALT 27 (0-31) U/L Alkaline Phosphatase 76 (39-117) U/L C-Reactive Protein 0.62 H (< or = 0.50) mg/dL Total Protein 7.6 (6.5-8.0) g/dL Albumin 4.0 (3.5-5.0) g/dL Lipase 16 (8-78) U/L Urine Color Dark Yellow Urine Appearance Cloudy Urine pH 5.5 (5.0-9.0) Ur Specific [place] >= 1.030 H (1.005-1.025) Urine Protein 30 (1+) H (Neg-Trace) mg/dL Urine Glucose (UA) Negative (Negative) mg/dL Urine Ketones Trace (Negative) mg/dL Urine Blood Trace H (Negative) Urine Nitrite Negative (Negative) Ur Leukocyte Esterase Small (1+) H (Negative) Urine RBC 3-5 H (0-2) /HPF Urine WBC 6-10 (0-5) /HPF Ur Squamous Epith Cells 11-20 (0-2) /HPF Urine Bacteria 1+ (None Seen) Hyaline Casts 6-10 (0-2) /LPF Independent Interpretation I performed an independent interpretation of an: CT Scan (exacerbation and possible SBO) Radiology Impression Discussion of test interpretation with radiology: I have reviewed the radiologist's reading. External Record Review External record reviewed: Inpatient record and Outpatient record Medications Administered Discontinued Medications Generic Name Dose Route Start Last Admin Trade Name Freq PRN Reason Stop Dose Admin Hydromorphone HCl 1 mg 08/17/24 10:14 08/17/24 10:47 Hydromorphone Hcl 1 Mg/Ml Syringe IVPUSH 08/17/24 10:15 1 mg ONCE ONE Administration Protocol Sodium Chloride 500 mls @ 500 mls/hr 08/17/24 10:14 08/17/24 12:23 Ns IV 08/17/24 11:13 Infused .Q1H ONE Infusion Iohexol 85 ml 08/17/24 12:00 08/17/24 12:01 Iohexol 350 Mg/Ml 100 Ml Infus..Btl IV 08/17/24 12:01 85 ml ONCE ONE Administration Methylprednisolone Sodium Succinate 60 mg 08/17/24 12:44 08/17/24 12:49 Methylprednisolone Sod Succ 125 Mg/2 Ml Vial IVPUSH 08/17/24 12:45 60 mg ONCE ONE Administration Ondansetron HCl 4 mg 08/17/24 10:14 08/17/24 10:46 Ondansetron Hcl 4 Mg/2 Ml Vial IVPUSH 08/17/24 10:15 4 mg ONCE ONE Administration Discharge Plan Discharge Clinical Impression: Abdominal pain, Crohn's disease Patient Disposition: Admitted As Inpatient Prescriptions: No Action cetirizine [Allergy Relief (cetirizine)] 10 mg tablet 10 mg PO DAILY PRN (Reason: allergy symptoms) Qty: 90 1RF ferrous sulfate 325 mg (65 mg iron) tablet 325 mg PO DAILY Qty: 90 1RF pantoprazole 40 mg tablet,delayed release (DR/EC) 40 mg PO DAILY Qty: 90 1RF Humira Pen 40 mg/0.8 mL pen injector kit See Rx Instructions subcut Q14D 30 Days Qty: 2 4RF Rx Instructions: inject one - 40 mg/0.8 mL pen every 2 weeks subcutaneously every 14 days; levothyroxine 88 mcg tablet 88 mcg PO QAM Qty: 90 1RF calcium carbonate 600 mg calcium (1,500 mg) tablet 600 mg PO BID Qty: 180 3RF Myrbetriq 25 mg tablet extended release 24 hr 25 mg PO DAILY cholecalciferol (vitamin D3) 250 mcg (10,000 unit) capsule 250 mcg PO MOFR Print Language: Khmer
[2024-08-17 10:21] LABS: Basophils Percent Auto 0.3 % (0-2); Eosinophils Absolute Auto 0.1 X10*3/uL (0.0-0.4); Eosinophils Percent Auto 1.9 % (0-4); Hematocrit 41.9 % (37.0-47.0); Hemoglobin 13.7 g/dl (12.0-16.0); Imm Gran Abs Auto 0.03 X10*3/uL (0.00-0.03); Imm Gran Pct Auto 0.4 % (0.0-0.4); Lymphocytes Absolute Auto 1.7 X10*3/uL (1.2-4.9); Lymphocytes Percent Auto 23.5 % (20-40); MANUAL DIFF FLAG NO; Mean Corpuscular HGB Conc 32.7 g/dl (31.0-35.0); Mean Corpuscular Hemoglobin 27.5 pg (27.0-33.0); Mean Platelet Volume 9.6 fL (9.4-12.3); Monocytes Absolute Auto 0.3 X10*3/uL (0.1-1.2); Monocytes Percent Auto 4.7 % (2-11); Neutrophils Percent Auto 69.2 % (45-73); Platelet Count 384 X10*3/uL (160-400); Red Blood Count 4.99 X10*6/uL (4.20-5.50); Red Cell Distribution Width 15.9 % (11.0-16.0); White Blood Count 7.2 X10*3/uL (4.8-10.8)
[2024-08-17 10:36] LABS: Alanine Aminotransferase 27 U/L (0-31); Alkaline Phosphatase 76 U/L (39-117); Anion Gap 16 (12-20); Aspartate Amino Transferase 33 U/L (5-31); Bilirubin Direct 0.2 mg/dL (0.0-0.5); Bilirubin Total 0.5 mg/dL (0.0-1.0); Blood Urea Nitrogen 14 mg/dL (9-16); C Reactive Protein 0.62 mg/dL (< or = 0.50); Calcium 9.4 mg/dL (8.4-10.2); Carbon Dioxide 19 mmol/L (22-29); Chloride 109 mmol/L (96-108); Creatinine Clr Calc Pharmacy 58.6; Estimated Glomerular Filt Rate 55; Glucose Random 128 mg/dL (60-115); Lipase 16 U/L (8-78); Magnesium 1.7 mg/dL (1.6-2.6); Potassium 3.8 mmol/L (3.3-5.1); Sodium 140 mmol/L (135-145); Total Protein 7.6 g/dL (6.5-8.0)
[2024-08-17] MEDS: ondansetron HCL 4 MG/2 ML VIAL IVPUSH (10:46)
[2024-08-17] MEDS: HYDROmorphone HCl 1 MG/ML SYRINGE IVPUSH ×3 (10:47→21:46)
[2024-08-17 11:05] LABS: Appearance Urine Cloudy; Color Urine Dark Yellow; Glucose Urine UA Negative (Negative); Leukocyte Esterase Urine Small (1+) (Negative); Nitrite Urine Negative (Negative); PH 5.5 (5.0-9.0); Specific Gravity - Urine >= 1.030 (1.005-1.025); UMIC TRIGGER UACC YES; Urine Blood Trace (Negative); Urine Ketones Trace mg/dL (Negative); Urine Protein 30 (1+) mg/dL (Neg-Trace)
[2024-08-17 11:13] LABS: Bacteria Urine 1+ (None Seen); UACC Culture Trigger YES
[2024-08-17] MEDS: 0.9 % Sodium Chloride 500 ML IV (11:21)
[2024-08-17] MEDS: iohexoL 350 MG/ML 100 ML INFUS..BTL 85 ML IV (12:01)
[2024-08-17] MEDS: methylPREDNISolone Sod Succ 125 MG/2 ML VIAL 60 MG IVPUSH ×3 (12:49→23:32)
--- NOTE | 2024-08-17 13:42 | P.HPHOSP_ITS ---
History of Present Illness Date of Service: 08/17/24 Chief Complaint: Abdominal pain 63 yo female with PMH of Crohns disease s/p subtotal colectomy on pentasa follows with Dr. Navas, GERD, HLD, hypothyroidism, hyperparathyroidism, osteoporosis here with c/o 1 day of abdominal pain, diarrhea non bloody. No fevers, chills, nausea, vomiting. States prior to yesterday, she was eating and moving her bowels normally. She states this feels similar to past Crohn's exacerbation. She is passing flatus Review of Systems 2 Review of Systems: Denies chest pain Denies shortness of breath Admits to nausea no vomiting; admits diarrhea Denies fever chills [facility] Medical History (Updated 08/17/24 @ 13:47 by Antoni Johnson DO) Partial small bowel obstruction Microcytic hypochromic anemia History of small bowel obstruction Intermittent lightheadedness Dyslipidemia Impaired fasting glucose History of COVID-19 GERD (gastroesophageal reflux disease) Morbid obesity Hyperparathyroidism Overactive bladder Upper back pain, chronic Large breasts Vitamin D deficiency Osteoporosis Postmenopause History of shingles Acquired hypothyroidism RLS (restless legs syndrome) Family History Father Lung cancer Mother Diabetes Hypertension Sister No problems noted. Mother Diabetes Paternal Grandmother Diabetes Father Lung cancer Paternal Uncle Lung cancer Surgical History Hx of sigmoidoscopy Hx of reduction mammoplasty History of bowel resection History of esophagogastroduodenoscopy Hx of colonoscopy Hx of cholecystectomy Hx of tonsillectomy History of appendectomy H/O partial resection of colon Social History Household Members: Family Housing: House Are you a primary manager respiratory care to a significant other at home: No Do you presently have visiting nurse or other home services: No Alcohol intake: never Patient Tobacco Use Status: Never used Tobacco Smoked in Last 30 Days: No e-Cigarette/Vaping Use: Never Used Second Hand Smoke Exposure: No Use of substances other than those prescribed or required for medical reasons: No Advance Directives: Yes Advance Directives on File: Yes Advance Directives Date on File: 05/31/22 Do you have a plan to hurt others: No Plan service: No Current occupational status: unemployed and disabled Current occupation: [employer] Cognitive needs: No Hearing needs: No Vision needs: Yes Meds Allergies Allergy/AdvReac Type Severity Reaction Status Date / Time No Known Allergies Allergy Verified 08/17/24 10:05 [No Known Allergies*] Active Medications: Current Medications Acetaminophen (Acetaminophen 325 Mg Tablet) 650 mg PO Q6H PRN PRN Reason: Pain, Mild (Pain Scale 1-3), fever or headache Calcium Carbonate (Calcium Carbonate 750 Mg Tab.Chew) 750 mg PO Q4H PRN PRN Reason: Heartburn Hydromorphone HCl (Hydromorphone Hcl 1 Mg/Ml Syringe) 1 mg IVPUSH Q4H PRN; Protocol PRN Reason: Pain, Severe (Pain Scale 7-10) Lactated Ringer's (Lr) 1,000 mls @ 100 mls/hr IVCONT .Q10H JENISE Magnesium Hydroxide (Milk Of Magnesia 30 Ml Oral.Susp) 30 ml PO DAILY PRN PRN Reason: Constipation Melatonin (Melatonin 3 Mg Tablet) 6 mg PO BEDTIME PRN PRN Reason: Insomnia Methylprednisolone Sodium Succinate (Methylprednisolone Sod Succ 125 Mg/2 Ml Vial) 60 mg IVPUSH Q6H JENISE Ondansetron HCl (Ondansetron Hcl 4 Mg/2 Ml Vial) 4 mg IVPUSH Q8H PRN PRN Reason: Nausea and Vomiting Sodium Chloride (0.9 % Sodium Chloride Flush 3 Ml Syringe) 3 ml IVFLUSH QSHIFT [facility] Home Medications ?Medication ?Instructions ?Recorded ?Confirmed ?Last Taken ?Type cholecalciferol (vitamin D3) 250 250 mcg PO MOFR 01/18/24 03/07/24 01/15/24 History mcg (10,000 unit) capsule mirabegron 25 mg tablet,extended 25 mg PO DAILY 01/18/24 03/07/24 01/18/24 History release 24 hr (Myrbetriq) levothyroxine 88 mcg tablet 88 mcg PO DAILY@0600 08/17/24 Unknown History mesalamine 500 mg capsule,extended 1,000 mg PO QID 08/17/24 Unknown History release (Pentasa) pantoprazole 40 mg tablet,delayed 40 mg PO DAILY@0630 08/17/24 Unknown History release Physical Exam 2 Vital Signs and Narrative: Vital Signs: Last Vital Signs Temp 97.6 F 08/17/24 10:01 Pulse 75 08/17/24 10:01 Resp 18 08/17/24 10:01 BP 123/73 08/17/24 10:01 Pulse Ox 98 08/17/24 10:01 O2 Del Method Room Air 08/17/24 10:01 BMI result Body Mass Index 32.6 Const: Other: Awake alert resting comfortable on gurney HEENT: Other: Membranes moist Resp: Other: Clear to auscultation bilaterally no rales rhonchi or wheezes Cardio: Other: No S4; positive S1-S2; no S3 murmurs rubs or gallops GI: Other: Soft mildly tender diffusely with quiet bowel sounds Neuro: Other: Cranial nerves 2-12 grossly intact as tested. Motor is 5/5 all extremities. Sensation is intact. Cognition appropriate. Gait not observed Extrem: Other: No edema bilaterally Results Labs 08/17/24 10:14 08/17/24 10:14 Labs: Laboratory Results - last 24 hr 08/17/24 08/17/24 10:14 10:52 MCV 84.0 MCH 27.5 MCHC 32.7 RDW 15.9 Plt Count 384 MPV 9.6 Immature Gran % (Auto) 0.4 Neut % (Auto) 69.2 Lymph % (Auto) 23.5 [place] % (Auto) 4.7 Eos % (Auto) 1.9 Baso % (Auto) 0.3 Lymph # (Auto) 1.7 [place] # (Auto) 0.3 Eos # (Auto) 0.1 Baso # (Auto) 0.0 Abs Immat Gran (auto) 0.03 Absolute Neuts (auto) 5.0 Absolute Nucleated RBC 0.000 Nucleated RBC % (auto) 0.0 Anion Gap 16 Estim Creat Clear Calc 58.6 Estimated GFR 55 Random Glucose 128 H Calcium 9.4 Magnesium 1.7 Total Bilirubin 0.5 Direct Bilirubin 0.2 AST 33 H ALT 27 Alkaline Phosphatase 76 C-Reactive Protein 0.62 H Total Protein 7.6 Albumin 4.0 Lipase 16 Urine Color Dark Yellow Urine Appearance Cloudy Urine pH 5.5 Ur Specific [place] >= 1.030 H Urine Protein 30 (1+) H Urine Glucose (UA) Negative Urine Ketones Trace Urine Blood Trace H Urine Nitrite Negative Ur Leukocyte Esterase Small (1+) H Urine RBC 3-5 H Urine WBC 6-10 Ur Squamous Epith Cells 11-20 Urine Bacteria 1+ Hyaline Casts 6-10 Imaging Radiologist's Impressions: Impressions Abdomen/Pelvis CT 08/17/24 11:32 IMPRESSION: 1. Redemonstration of malrotation of the bowel with the colon largely located in the right abdomen. Multiple fluid-filled and dilated small bowel loops measuring up to 4.6 cm in dimension. There are interposed areas of underdistention with circumferential wall thickening, most prominent within the left abdomen. There are dilated small bowel loops both proximal and distal to the left abdominal findings extending to the level of the pelvis where there is a possible transition point. The distal small bowel is nondistended. The colon is fluid-filled. Findings are consistent with partial small bowel obstruction. No pneumatosis. No extraluminal air or organized fluid collection to suggest perforation or abscess formation. 2. No intra-abdominal mass, lymphadenopathy, or ascites. Fleischner guidelines were followed. Electronically signed by: Kike Cai MD 08/17/2024 12:40 PM [facility] [place] Workstation: [id number] Assessment and Plan (1) Partial small bowel obstruction: Status: Acute (2) Crohn's disease: Qualifiers: Digestive disease complication type: unspecified complication G astrointestinal tract location: small intestine Qualified Code(s): K50.019 - Crohn's disease of small intestine with unspecified complications Status: Acute (3) Acquired hypothyroidism: Status: Acute Plan 63-year-old female with known history of Crohn's disease presents with a proximally 24 hours of worsening abdominal pain nausea and intermittent vomiting consistent with Crohn's exacerbation. She denies fever chills bloody stool; she is passing gas 1.PSBO/Crohn's exacerbation -methylprednisolone 60 mg IV q.6 hours -Dilaudid as needed for pain -clear liquids as tolerated 2. Hypothyroidism -continue outpatient supplements 3. GERD -IV PPI until adequate p.o. since switch to outpatient therapies Full code Lovenox Will require at least 2 midnights going forward of inpatient hospitalization for IV steroids to treat Crohn's flare with the possibility of specialist consultation. This can not be achieved a lesser acute setting Quality Stroke Does the patient have a stroke diagnosis?: No VTE Prior VTE?: No VTE Risk Level:: Medical - moderate - high VTE Device Contraindication: Treatment Not Indicated VTE Drug Contraindication: N/A - Med Ordered
[2024-08-17] MEDS: Lactated Ringers 1,000 ML 100 ML IVCONT ×2 (13:45→23:36)
--- NOTE | 2024-08-17 14:17 | PHA.MEDREC ---
Addendum entered by Cassia Lorenzana RPh 08/17/24 14:43: MED REC REVIEWED BY Mariama Original Note: Pharmacy Consult ? Medication Reconciliation Pharmacy has completed the medication reconciliation. Spoke to pt to confirm meds.
[2024-08-17] MEDS: Pantoprazole Sodium 40 MG/10 ML VIAL IVPUSH (17:23)
--- NOTE | 2024-08-17 17:35 | PC.NURSE ---
Medicated for complaint of abdominal pain, patient on clear liquid diet provided with dayana pascual and jello, tolerating well at this time
[2024-08-17] MEDS: 0.9 % Sodium Chloride Flush 3 ML SYRINGE IVFLUSH (23:32)
[2024-08-18] MEDS: HYDROmorphone HCl 1 MG/ML SYRINGE IVPUSH ×3 (03:55→20:45)
[2024-08-18 05:40] VITALS: BP 116/57; PULSE 61; RESP 18; TEMP 36.8; O2SAT 94
[2024-08-18] MEDS: methylPREDNISolone Sod Succ 125 MG/2 ML VIAL 60 MG IVPUSH ×3 (05:52→17:11)
[2024-08-18] MEDS: Pantoprazole Sodium 40 MG/10 ML VIAL IVPUSH ×2 (05:52→15:48)
[2024-08-18 06:45] LABS: Hematocrit 36.7 % (37.0-47.0); Hemoglobin 11.7 g/dl (12.0-16.0); Imm Gran Abs Auto 0.03 X10*3/uL (0.00-0.03); Imm Gran Pct Auto 0.4 % (0.0-0.4); Lymphocytes Absolute Auto 0.6 X10*3/uL (1.2-4.9); Lymphocytes Percent Auto 7.1 % (20-40); MANUAL DIFF FLAG SCAN; Mean Corpuscular HGB Conc 31.9 g/dl (31.0-35.0); Mean Corpuscular Hemoglobin 27.5 pg (27.0-33.0); Mean Corpuscular Volume 86.2 fL (80.0-98.0); Mean Platelet Volume 9.9 fL (9.4-12.3); Monocytes Percent Auto 0.4 % (2-11); Neutrophils Absolute Auto 7.4 x10*3/uL (2.0-8.3); Neutrophils Percent Auto 92.1 % (45-73); Platelet Count 290 X10*3/uL (160-400); Red Blood Count 4.26 X10*6/uL (4.20-5.50); Red Cell Distribution Width 15.6 % (11.0-16.0); SCAN SMEAR FLAG 1
[2024-08-18 07:01] VITALS: BP 103/70; PULSE 67; RESP 16; TEMP 36.1; O2SAT 92
[2024-08-18 07:01] LABS: Alanine Aminotransferase 22 U/L (0-31); Albumin Level 3.2 g/dL (3.5-5.0); Alkaline Phosphatase 62 U/L (39-117); Anion Gap 12 (12-20); Aspartate Amino Transferase 19 U/L (5-31); Bilirubin Total 0.3 mg/dL (0.0-1.0); Blood Urea Nitrogen 9 mg/dL (9-16); Carbon Dioxide 21 mmol/L (22-29); Chloride 111 mmol/L (96-108); Creatinine Clr Calc Pharmacy 81.9; Estimated Glomerular Filt Rate > 60; Glucose Random 140 mg/dL (60-115); Potassium 3.7 mmol/L (3.3-5.1); Sodium 140 mmol/L (135-145); Total Protein 6.2 g/dL (6.5-8.0)
[2024-08-18 07:34] LABS: SLIDE REVIEW VERIFIED
--- NOTE | 2024-08-18 09:28 | MHC.CM.PN ---
PT REPORTS SHE LIVES WITH HER COUSIN AND IS INDEPENDENT WITH CARE SHE HAS NO DME AND NO SERVICES HCP ON FILE AND VERIFIED PCP: BERNADETTE PALMA DCP: HOME NO SERVICES VIA PRIVATE TRANSPORT
[2024-08-18] MEDS: Lactated Ringers 1,000 ML 100 ML IVCONT ×2 (09:46→21:29)
[2024-08-18] MEDS: Levothyroxine Sodium 88 MCG TABLET PO (12:12)
[2024-08-18] MEDS: Mirabegron 25 MG TAB.ER.24H PO (12:12)
[2024-08-18] MEDS: Ferrous Sulfate 324 MG TABLET.DR PO (12:13)
--- NOTE | 2024-08-18 12:31 | HO.PM.IMPN ---
Subjective Subjective Date of Service: 08/18/24 Interval History: Slowly improving; good response to steroids. Pain has improved per patient Review of Systems Denies chest pain Denies shortness of breath Admits to nausea no vomiting; admits diarrhea Denies fever chills Physical Exam Vital Signs: Vital Signs: Last Vital Signs Temp 96.9 F 08/18/24 07:01 Pulse 67 08/18/24 07:01 Resp 16 08/18/24 07:01 BP 103/70 08/18/24 07:01 Pulse Ox 92 08/18/24 07:01 O2 Del Method Room Air 08/18/24 07:01 BMI result Body Mass Index 35.3 Const: Other: Awake alert resting comfortable on gurney HEENT: Other: Membranes moist Resp: Other: Clear to auscultation bilaterally no rales rhonchi or wheezes Cardio: Other: No S4; positive S1-S2; no S3 murmurs rubs or gallops GI: Other: Soft mildly tender diffusely with quiet bowel sounds Neuro: Other: Cranial nerves 2-12 grossly intact as tested. Motor is 5/5 all extremities. Sensation is intact. Cognition appropriate. Gait not observed Extrem: Other: No edema bilaterally Objective Data Active Medications Acetaminophen (Acetaminophen 325 Mg Tablet) 650 mg PO Q6H PRN PRN Reason: Pain, Mild (Pain Scale 1-3), fever or headache Calcium Carbonate (Calcium Carbonate 750 Mg Tab.Chew) 750 mg PO Q4H PRN PRN Reason: Heartburn Calcium Carbonate/Cholecalciferol (Calcium + Vitamin D 250 Mg Tablet) 250 mg PO BID [facility] Enoxaparin Sodium (Enoxaparin Sodium 40 Mg/0.4 Ml Syringe) 40 mg SUBCUT Q24H [facility] Last Admin: 08/17/24 14:18 Dose: Not Given Documented By: LILLIAN Non-Admin Reason: Patient Refused Ferrous Sulfate (Ferrous Sulfate 324 Mg Liang.) 324 mg PO DAILY [facility] Last Admin: 08/18/24 12:13 Dose: 324 mg Documented By: JUDAH Hydromorphone HCl (Hydromorphone Hcl 1 Mg/Ml Syringe) 1 mg IVPUSH Q4H PRN; Protocol PRN Reason: Pain, Severe (Pain Scale 7-10) Last Admin: 08/18/24 08:35 Dose: 1 mg Documented By: JUDAH Lactated Ringer's (Lr) 1,000 mls @ 100 mls/hr IVCONT .Q10H [facility] Last Admin: 08/18/24 09:46 Dose: 100 mls/hr Documented By: JUDAH Levothyroxine Sodium (Levothyroxine Sodium 88 Mcg Tablet) 88 mcg PO DAILY@0600 [facility] Last Admin: 08/18/24 12:12 Dose: 88 mcg Documented By: JUDAH Loratadine (Loratadine 10 Mg Tablet) 10 mg PO DAILY PRN PRN Reason: allergy symptoms Magnesium Hydroxide (Milk Of Magnesia 30 Ml Oral.Susp) 30 ml PO DAILY PRN PRN Reason: Constipation Melatonin (Melatonin 3 Mg Tablet) 6 mg PO BEDTIME PRN PRN Reason: Insomnia Mesalamine (Mesalamine 250 Mg Capsule.Er) 1,000 mg PO QID [facility] Methylprednisolone Sodium Succinate (Methylprednisolone Sod Succ 125 Mg/2 Ml Vial) 60 mg IVPUSH Q6H [facility] Last Admin: 08/18/24 12:12 Dose: 60 mg Documented By: JUDAH Mirabegron (Mirabegron 25 Mg Tab.Er.24h) 25 mg PO DAILY [facility] Last Admin: 08/18/24 12:12 Dose: 25 mg Documented By: JUDAH Ondansetron HCl (Ondansetron Hcl 4 Mg/2 Ml Vial) 4 mg IVPUSH Q8H PRN PRN Reason: Nausea and Vomiting Pantoprazole Sodium (Pantoprazole Sodium 40 Mg/10 Ml Vial) 40 mg IVPUSH BID@0630,1630 [facility] Last Admin: 08/18/24 05:52 Dose: 40 mg Documented By: AURELIO Sodium Chloride (0.9 % Sodium Chloride Flush 3 Ml Syringe) 3 ml IVFLUSH QSHIFT [facility] Last Admin: 08/18/24 08:40 Dose: Not Given Documented By: JUDAH Non-Admin Reason: IV Running Labs 08/18/24 05:39 08/18/24 05:39 Labs: Laboratory Results - last 24 hr 08/18/24 05:39 MCV 86.2 MCH 27.5 MCHC 31.9 RDW 15.6 Plt Count 290 MPV 9.9 Immature Gran % (Auto) 0.4 Neut % (Auto) 92.1 H Lymph % (Auto) 7.1 L [place] % (Auto) 0.4 L Eos % (Auto) 0.0 Baso % (Auto) 0.0 Lymph # (Auto) 0.6 L [place] # (Auto) 0.0 L Eos # (Auto) 0.0 Baso # (Auto) 0.0 Abs Immat Gran (auto) 0.03 Absolute Neuts (auto) 7.4 Absolute Nucleated RBC 0.000 Nucleated RBC % (auto) 0.0 Smear Tech's Comments VERIFIED Anion Gap 12 Estim Creat Clear Calc 81.9 Estimated GFR > 60 Random Glucose 140 H Calcium 8.0 L D Total Bilirubin 0.3 AST 19 ALT 22 Alkaline Phosphatase 62 Total Protein 6.2 L Albumin 3.2 L Microbiology Microbiology Results: Microbiology 08/17/24 Unknown Urine Culture - Final Urine clean catch - Clean Catch Midstream Assessment and Plan (1) Partial small bowel obstruction: Status: Acute (2) Crohn's disease: Status: Acute Plan 63-year-old female with known history of Crohn's disease presents with a proximally 24 hours of worsening abdominal pain nausea and intermittent vomiting consistent with Crohn's exacerbation. She denies fever chills bloody stool; she is passing gas 1.PSBO/Crohn's exacerbation -methylprednisolone 60 mg IV q.6 hours -Dilaudid as needed for pain -clear liquids tolerated... Advance to full liquids today 2. Hypothyroidism -continue outpatient supplements 3. GERD -IV PPI until adequate p.o. since switch to outpatient therapies Full code Lovenox Will require hospitalization for IV steroids to treat Crohn's flare with the possibility of specialist consultation. This can not be achieved a lesser acute setting Quality Stroke Does the patient have a stroke diagnosis?: No VTE Prior VTE?: No VTE Risk Level:: Medical - moderate - high VTE Device Contraindication: Treatment Not Indicated VTE Drug Contraindication: N/A - Med Ordered
[2024-08-18 14:00] VITALS: BP 115/57; PULSE 70; RESP 18; TEMP 36.7; O2SAT 95
[2024-08-18] MEDS: Mesalamine 250 MG CAPSULE.ER 1000 MG PO ×3 (14:07→21:29)
[2024-08-18] MEDS: Enoxaparin Sodium 40 MG/0.4 ML SYRINGE SUBCUT (14:07)
[2024-08-18 15:23] VITALS: BP 128/58; PULSE 70; RESP 18; TEMP 36.1; O2SAT 93
[2024-08-18] MEDS: 0.9 % Sodium Chloride Flush 3 ML SYRINGE IVFLUSH ×2 (15:48→21:31)
[2024-08-18 19:56] VITALS: BP 112/54; PULSE 71; RESP 18; TEMP 36.3; O2SAT 95
[2024-08-18] MEDS: Calcium + Vitamin D 250 MG TABLET PO (21:29)
[2024-08-18 22:00] VITALS: BP 118/58; PULSE 73; RESP 18; TEMP 36.4; O2SAT 93
[2024-08-19] MEDS: methylPREDNISolone Sod Succ 125 MG/2 ML VIAL 60 MG IVPUSH ×2 (00:21→05:51)
[2024-08-19] MEDS: HYDROmorphone HCl 1 MG/ML SYRINGE IVPUSH ×2 (02:53→07:44)
[2024-08-19 03:56] VITALS: BP 150/75; PULSE 70; RESP 16; TEMP 36.4; O2SAT 93
[2024-08-19] MEDS: Pantoprazole Sodium 40 MG/10 ML VIAL IVPUSH (05:51)
[2024-08-19] MEDS: Levothyroxine Sodium 88 MCG TABLET PO (05:51)
[2024-08-19 06:25] LABS: Alanine Aminotransferase 14 U/L (0-31); Albumin Level 2.9 g/dL (3.5-5.0); Alkaline Phosphatase 55 U/L (39-117); Anion Gap 14 (12-20); Aspartate Amino Transferase 19 U/L (5-31); Bilirubin Total 0.2 mg/dL (0.0-1.0); Blood Urea Nitrogen 13 mg/dL (9-16); Calcium 8.4 mg/dL (8.4-10.2); Carbon Dioxide 18 mmol/L (22-29); Chloride 111 mmol/L (96-108); Creatinine Clr Calc Pharmacy 76.8; Estimated Glomerular Filt Rate > 60; Glucose Fasting 145 mg/dL (60-99); Potassium 3.8 mmol/L (3.3-5.1); Sodium 139 mmol/L (135-145)
[2024-08-19 06:51] LABS: Basophils Percent Auto 0.1 % (0-2); Hemoglobin 11.3 g/dl (12.0-16.0); Imm Gran Abs Auto 0.07 X10*3/uL (0.00-0.03); Imm Gran Pct Auto 0.6 % (0.0-0.4); Lymphocytes Absolute Auto 0.6 X10*3/uL (1.2-4.9); MANUAL DIFF FLAG SCAN; Mean Corpuscular HGB Conc 32.3 g/dl (31.0-35.0); Mean Corpuscular Hemoglobin 27.7 pg (27.0-33.0); Mean Corpuscular Volume 85.8 fL (80.0-98.0); Monocytes Absolute Auto 0.1 X10*3/uL (0.1-1.2); Monocytes Percent Auto 1.1 % (2-11); Neutrophils Absolute Auto 11.2 x10*3/uL (2.0-8.3); Neutrophils Percent Auto 93.2 % (45-73); Platelet Count 258 X10*3/uL (160-400); Red Blood Count 4.08 X10*6/uL (4.20-5.50); Red Cell Distribution Width 16.1 % (11.0-16.0); SCAN SMEAR FLAG 1
[2024-08-19 07:25] VITALS: BP 134/67; PULSE 77; RESP 16; TEMP 36.8; O2SAT 91
[2024-08-19] MEDS: Lactated Ringers 1,000 ML 100 ML IVCONT (07:33)
[2024-08-19] MEDS: Mirabegron 25 MG TAB.ER.24H PO (07:34)
[2024-08-19] MEDS: Mesalamine 250 MG CAPSULE.ER 1000 MG PO ×4 (07:34→20:42)
[2024-08-19] MEDS: Ferrous Sulfate 324 MG TABLET.DR PO (07:34)
[2024-08-19] MEDS: Calcium + Vitamin D 250 MG TABLET PO ×2 (07:34→20:42)
[2024-08-19 07:45] LABS: SLIDE REVIEW VERIFIED
--- NOTE | 2024-08-19 11:54 | MHC.CM.PN ---
Per MD rounds A diet is ordered. Patient may be ready to discharge tomorrow. DP home self care. Patient will arrange for transport home.
[2024-08-19] MEDS: Acetaminophen 325 MG TABLET 650 MG PO (12:53)
--- NOTE | 2024-08-19 13:44 | P.PNIM_ITS ---
Subjective Subjective Date of Service: 08/19/24 Interval History: tolerating full liquid diet had a formed bowel movement last night, denies fever, no chills, complaining of mild mid abdominal cramping, no fevers, no chills, no nausea, no vomiting. No acute events overnight. Review of Systems other system reviewed and are negative. Physical Exam 2 Vital Signs: Vital Signs: Last Vital Signs Temp 98.2 F 08/19/24 07:25 Pulse 77 08/19/24 07:25 Resp 16 08/19/24 07:25 BP 134/67 08/19/24 07:25 Pulse Ox 91 L 08/19/24 07:25 O2 Del Method Room Air 08/19/24 07:25 BMI result Body Mass Index 35.3 Const: Other: General: Ax O X 3, no acute distress neck no JVD Resp: CTA bilateral CVS: S1,S2,RRR GI: +BS, mild mid abdominal discomfort with palpation, bowel sounds audible, no guarding, no rigidity Skin: No rash Neuro: motor grossly intact Psych: appropriate affect Objective Data Active Medications Acetaminophen (Acetaminophen 325 Mg Tablet) 650 mg PO Q6H PRN PRN Reason: Pain, Mild (Pain Scale 1-3), fever or headache Last Admin: 08/19/24 12:53 Dose: 650 mg Documented By: JUDAH Calcium Carbonate (Calcium Carbonate 750 Mg Tab.Chew) 750 mg PO Q4H PRN PRN Reason: Heartburn Calcium Carbonate/Cholecalciferol (Calcium + Vitamin D 250 Mg Tablet) 250 mg PO BID [facility] Last Admin: 08/19/24 07:34 Dose: 250 mg Documented By: JUDAH Enoxaparin Sodium (Enoxaparin Sodium 40 Mg/0.4 Ml Syringe) 40 mg SUBCUT Q24H [facility] Last Admin: 08/18/24 14:07 Dose: 40 mg Documented By: JUDAH Ferrous Sulfate (Ferrous Sulfate 324 Mg Tablet.) 324 mg PO DAILY [facility] Last Admin: 08/19/24 07:34 Dose: 324 mg Documented By: JUDAH Levothyroxine Sodium (Levothyroxine Sodium 88 Mcg Tablet) 88 mcg PO DAILY@0600 [facility] Last Admin: 08/19/24 05:51 Dose: 88 mcg Documented By: AURELIO Loratadine (Loratadine 10 Mg Tablet) 10 mg PO DAILY PRN PRN Reason: allergy symptoms Magnesium Hydroxide (Milk Of Magnesia 30 Ml Oral.Susp) 30 ml PO DAILY PRN PRN Reason: Constipation Melatonin (Melatonin 3 Mg Tablet) 6 mg PO BEDTIME PRN PRN Reason: Insomnia Mesalamine (Mesalamine 250 Mg Capsule.Er) 1,000 mg PO QID [facility] Last Admin: 08/19/24 12:53 Dose: 1,000 mg Documented By: JUDAH Mirabegron (Mirabegron 25 Mg Tab.Er.24h) 25 mg PO DAILY [facility] Last Admin: 08/19/24 07:34 Dose: 25 mg Documented By: JUDAH Omeprazole (Omeprazole 40 Mg Capsule.Dr) 40 mg PO DAILY@0630 [facility] Ondansetron HCl (Ondansetron Hcl 4 Mg/2 Ml Vial) 4 mg IVPUSH Q8H PRN PRN Reason: Nausea and Vomiting Prednisone (Prednisone 20 Mg Tablet) 40 mg PO DAILY [facility] Sodium Chloride (0.9 % Sodium Chloride Flush 3 Ml Syringe) 3 ml IVFLUSH QSHIFT [facility] Last Admin: 08/19/24 07:02 Dose: Not Given Documented By: JUDAH Non-Admin Reason: IV Running Labs 08/19/24 06:40 08/19/24 05:32 Labs: Laboratory Results - last 24 hr 08/19/24 08/19/24 05:32 06:40 MCV 85.8 MCH 27.7 MCHC 32.3 RDW 16.1 H Plt Count 258 MPV 10.0 Immature Gran % (Auto) 0.6 H Neut % (Auto) 93.2 H Lymph % (Auto) 5.0 L [place] % (Auto) 1.1 L Eos % (Auto) 0.0 Baso % (Auto) 0.1 Lymph # (Auto) 0.6 L [place] # (Auto) 0.1 Eos # (Auto) 0.0 Baso # (Auto) 0.0 Abs Immat Gran (auto) 0.07 H Absolute Neuts (auto) 11.2 H Absolute Nucleated RBC 0.000 Nucleated RBC % (auto) 0.0 Smear Tech's Comments VERIFIED Anion Gap 14 Estim Creat Clear Calc 76.8 Estimated GFR > 60 Fasting Glucose 145 H Calcium 8.4 Total Bilirubin 0.2 AST 19 ALT 14 Alkaline Phosphatase 55 Total Protein 6.0 L Albumin 2.9 L Microbiology Microbiology Results: Microbiology 08/17/24 Unknown Urine Culture - Final Urine clean catch - Clean Catch Midstream Assessment and Plan (1) Partial small bowel obstruction: Status: Acute (2) Crohn's disease: Status: Acute Plan 63-year-old female with known history of Crohn's disease presents with a proximally 24 hours of worsening abdominal pain nausea and intermittent vomiting consistent with Crohn's exacerbation. She denies fever chills bloody stool; she is passing gas 1.PSBO/Crohn's exacerbation - feels better tolerating full liquid diet, mild mid abdominal discomfort, regular bowel movement last night - Noted to have similar episode in 02/05/2024, CT abdomen and pelvis showed multiple fluid filled and dilated small bowel loops, interposed areas of underdistention with circumferential wall thickening most prominent within left abdomen. - on iv methylprednisolone 60 mg q.6 hours, will transition to by mouth prednisone 40 mg with tapering 10 mg Q weekly, continue Pentasa - avoid narcotics, DC IV Dilaudid , add Bentyl 10 mg t.i.d. as needed - recommend out of bed to chair/ambulation as tolerated - surgical eval if persistent symptoms - follow Cbc and lytes. 2. Hypothyroidism -continue outpatient supplements 3. GERD - DC IV PPI transitioned to by mouth PPI Full code Lovenox Will require continued inpatient hospitalization for management of Crohn's flare, unable to tolerate regular diet. Quality Stroke Does the patient have a stroke diagnosis?: No VTE Prior VTE?: No VTE Risk Level:: Medical - moderate - high VTE Device Contraindication: Treatment Not Indicated VTE Drug Contraindication: N/A - Med Ordered
[2024-08-19 13:50] VITALS: BP 112/53; PULSE 64; RESP 18; TEMP 36.2; O2SAT 95
[2024-08-19] MEDS: Dicyclomine HCl 10 MG CAPSULE PO ×2 (13:59→18:12)
[2024-08-19] MEDS: Enoxaparin Sodium 40 MG/0.4 ML SYRINGE SUBCUT (13:59)
[2024-08-19] MEDS: methylPREDNISolone Sod Succ 40 MG/ML VIAL IVPUSH ×2 (14:10→21:07)
[2024-08-19 15:09] VITALS: BP 143/60; PULSE 61; RESP 20; TEMP 36.6; O2SAT 95
[2024-08-19] MEDS: 0.9 % Sodium Chloride Flush 3 ML SYRINGE IVFLUSH ×2 (16:32→21:07)
--- NOTE | 2024-08-19 16:47 | HO.WOUND ---
Wound Consult: Initial 63yr old? female admitted to [facility] on 08/17/24 - See progress notes and H&P for detailed history.? Wound consult placed for scalp wound.? Patient agreeable to assessment and photo documentation.? Patient reports these are secondary to biopsy site 10 years ago, the patient appears to be a poor historian as the story is inconsistent at times and I am not able to make sense of the time line. I do recommend she has outpt follow up with dermatology or outpt wound clinic for wound healing and treatment. She was agreeable to this. Left Scalp Etiology: ?Unknown Etiology - not consistent with pressure or moisture Wound Bed: various areas of tissue loss scant slough noted to wound beds Drainage / Odor: dried crusted drainage on scalp - no dressing in place Edges: ? irregular Ida wound: intact scar tissue noted - ? No Induration, Fluctuance or Warmth noted Pain: denies pain reports itching Goals of Treatment: ? Moist wound healing with vaseline, pt refused cover dressing - recommend out pt Dermatology for treatment and etiology Recommendations: 1. Scalp - May wash hair when cleared for shower. May use shower cap to wash hair and removed dried drainage. Cleanse with NS, moist gauze, Apply layer of vaseline, recommend covering with dry gauze to prevent from pt picking and secure with gauze wrap. Patient refused cover dressing, may just use vaseline and cleanse daily. Re-consult wound care Nurse for wound deterioration or wound changes.
--- NOTE | 2024-08-19 20:56 | PC.NURSE ---
Addendum entered by Ileana Bean RN 08/19/24 22:10: Once order of oxycodone ordered, per Dr. Juarez. Original Note: On reassessment for Bentyl, pt appeared to be sleeping with eyes closed respirations even and non-labored, & VSS stable. Pt than called this RN in shortly after reporting 10/10 abd pain, and reporting that tylenol and bentyl does not help at all. Dr. Juarez made aware.
[2024-08-19] MEDS: oxyCODONE HCl Immed Release 5 MG TABLET 10 MG PO (21:57)
[2024-08-19 22:00] VITALS: BP 145/74; PULSE 57; RESP 20; TEMP 36.6; O2SAT 95
[2024-08-20] MEDS: HYDROmorphone HCl 1 MG/ML SYRINGE IVPUSH (03:08)
[2024-08-20 05:21] VITALS: BP 140/63; PULSE 74; RESP 18; TEMP 37.1; O2SAT 93
[2024-08-20] MEDS: Omeprazole 40 MG CAPSULE.DR PO (05:50)
[2024-08-20] MEDS: Levothyroxine Sodium 88 MCG TABLET PO (05:51)
[2024-08-20 06:38] LABS: Hematocrit 35.4 % (37.0-47.0); Hemoglobin 11.2 g/dl (12.0-16.0); Mean Corpuscular HGB Conc 31.6 g/dl (31.0-35.0); Mean Corpuscular Hemoglobin 27.2 pg (27.0-33.0); Mean Corpuscular Volume 85.9 fL (80.0-98.0); Mean Platelet Volume 10.3 fL (9.4-12.3); Platelet Count 278 X10*3/uL (160-400); Red Blood Count 4.12 X10*6/uL (4.20-5.50); Red Cell Distribution Width 16.5 % (11.0-16.0); White Blood Count 10.5 X10*3/uL (4.8-10.8)
[2024-08-20 06:53] LABS: Anion Gap 14 (12-20); Blood Urea Nitrogen 14 mg/dL (9-16); Calcium 8.4 mg/dL (8.4-10.2); Carbon Dioxide 24 mmol/L (22-29); Chloride 107 mmol/L (96-108); Creatinine Clr Calc Pharmacy 73.3; Estimated Glomerular Filt Rate > 60; Glucose Random 187 mg/dL (60-115); Potassium 3.3 mmol/L (3.3-5.1); Sodium 142 mmol/L (135-145)
[2024-08-20 07:40] VITALS: BP 166/71; PULSE 55; RESP 16; TEMP 36.6; O2SAT 94
[2024-08-20] MEDS: Mesalamine 250 MG CAPSULE.ER 1000 MG PO ×4 (09:47→21:40)
[2024-08-20] MEDS: Dicyclomine HCl 10 MG CAPSULE PO (09:47)
[2024-08-20] MEDS: Ferrous Sulfate 324 MG TABLET.DR PO (09:47)
[2024-08-20] MEDS: Calcium + Vitamin D 250 MG TABLET PO ×2 (09:47→21:39)
[2024-08-20] MEDS: predniSONE 20 MG TABLET 40 MG PO (09:47)
[2024-08-20] MEDS: Mirabegron 25 MG TAB.ER.24H PO (09:47)
[2024-08-20] MEDS: 0.9 % Sodium Chloride Flush 3 ML SYRINGE IVFLUSH ×2 (09:49→16:37)
[2024-08-20] MEDS: Acetaminophen 325 MG TABLET 650 MG PO (12:17)
[2024-08-20] MEDS: HYDROmorphone HCl 0.5 MG/0.5 ML SYRINGE IVPUSH (12:26)
--- NOTE | 2024-08-20 13:09 | PM.CNGS ---
History of Present Illness Consult details Consult date: 08/20/24 <Shara Oliva PA-C - Last Filed: 08/20/24 13:19> Reason for consult: abdominal pain <INNA Garcia Last Filed: 08/20/24 13:19> Requesting physician: Asa Vergara <Shara Oliva PA-C - Last Filed: 08/20/24 13:19> Narrative: Ms. Bravo is a 63 yo female with PMH of Crohns disease s/p subtotal colectomy on humira, GERD, HLD, hypothyroidism, hyperparathyroidism who presented to the ED with complaints of abdominal pain. The pain began 1 day prior to presentation and was associated with diarrhea. The pain is crampy and mostly in the right mid abdomen. She denies nausea, vomiting, fevers, sick contacts. It felt similar to her prior episodes of Crohns flares and she presented to the ED. Work up included a CT scan abd/pelvis which showed dilated, fluid-filled small bowel loops some areas with circumferential wall thickening. She was admitted to the medical service for further treatment of the SBO due to Crohns flare and was started on IV steroids. She has had improvement in her abd pain and had a BM since admission. She reports passing a small amount of flatus this morning. She is ambulating. She continues to have mild crampy right sided pain and therefore general surgery was consulted. <Shara Oliva PA-C - Last Filed: 08/20/24 13:19> [facility] Past Medical History Medical History: Medical History (Updated 08/17/24 @ 13:47 by Antoni Johnson DO) Partial small bowel obstruction Microcytic hypochromic anemia History of small bowel obstruction Intermittent lightheadedness Dyslipidemia Impaired fasting glucose History of COVID-19 GERD (gastroesophageal reflux disease) Morbid obesity Hyperparathyroidism Overactive bladder Upper back pain, chronic Large breasts Vitamin D deficiency Osteoporosis Postmenopause History of shingles Acquired hypothyroidism RLS (restless legs syndrome) <INNA Garcia Last Filed: 08/20/24 13:19> Family History Family History: Family History Father Lung cancer Mother Diabetes Hypertension Sister No problems noted. Mother Diabetes Paternal Grandmother Diabetes Father Lung cancer Paternal Uncle Lung cancer <Shara Oliva PA-C - Last Filed: 08/20/24 13:19> Surgical History Surgical History: Surgical History Hx of sigmoidoscopy Hx of reduction mammoplasty History of bowel resection History of esophagogastroduodenoscopy Hx of colonoscopy Hx of cholecystectomy Hx of tonsillectomy History of appendectomy H/O partial resection of colon <Shara Oliva PA-C - Last Filed: 08/20/24 13:19> Social History Social History: Social History Household Members: Family Housing: Apartment Are you a primary medical care administrator to a significant other at home: No Do you presently have visiting nurse or other home services: No Alcohol intake: never Patient Tobacco Use Status: Never used Tobacco e-Cigarette/Vaping Use: Never Used Second Hand Smoke Exposure: No Advance Directives Date on File: 05/31/22 service: No Current occupational status: unemployed and disabled Current occupation: [employer] Cognitive needs: No Hearing needs: No Vision needs: Yes <INNA Garcia Last Filed: 08/20/24 13:19> Meds Allergies/Adverse reactions: Allergies Allergy/AdvReac Type Severity Reaction Status Date / Time No Known Allergies Allergy Verified 08/17/24 10:05 [No Known Allergies*] <INNA Garcia Last Filed: 08/20/24 13:19> Active Medications: Current Medications Acetaminophen (Acetaminophen 325 Mg Tablet) 650 mg PO Q6H PRN PRN Reason: Pain, Mild (Pain Scale 1-3), fever or headache Last Admin: 08/20/24 12:17 Dose: 650 mg Calcium Carbonate (Calcium Carbonate 750 Mg Tab.Chew) 750 mg PO Q4H PRN PRN Reason: Heartburn Calcium Carbonate/Cholecalciferol (Calcium + Vitamin D 250 Mg Tablet) 250 mg PO BID JENISE Last Admin: 08/20/24 09:47 Dose: 250 mg Dicyclomine HCl (Dicyclomine Hcl 10 Mg Capsule) 10 mg PO TIDAC PRN PRN Reason: abdominal pain Last Admin: 08/20/24 09:47 Dose: 10 mg Enoxaparin Sodium (Enoxaparin Sodium 40 Mg/0.4 Ml Syringe) 40 mg SUBCUT Q24H [facility] Last Admin: 08/19/24 13:59 Dose: 40 mg Ferrous Sulfate (Ferrous Sulfate 324 Mg Tablet.) 324 mg PO DAILY [facility] Last Admin: 08/20/24 09:47 Dose: 324 mg Levothyroxine Sodium (Levothyroxine Sodium 88 Mcg Tablet) 88 mcg PO DAILY@0600 [facility] Last Admin: 08/20/24 05:51 Dose: 88 mcg Loratadine (Loratadine 10 Mg Tablet) 10 mg PO DAILY PRN PRN Reason: allergy symptoms Magnesium Hydroxide (Milk Of Magnesia 30 Ml Oral.Susp) 30 ml PO DAILY PRN PRN Reason: Constipation Melatonin (Melatonin 3 Mg Tablet) 6 mg PO BEDTIME PRN PRN Reason: Insomnia Mesalamine (Mesalamine 250 Mg Capsule.Er) 1,000 mg PO QID [facility] Last Admin: 08/20/24 12:18 Dose: 1,000 mg Mirabegron (Mirabegron 25 Mg Tab.Er.24h) 25 mg PO DAILY [facility] Last Admin: 08/20/24 09:47 Dose: 25 mg Omeprazole (Omeprazole 40 Mg Capsule.) 40 mg PO DAILY@0630 [facility] Last Admin: 08/20/24 05:50 Dose: 40 mg Ondansetron HCl (Ondansetron Hcl 4 Mg/2 Ml Vial) 4 mg IVPUSH Q8H PRN PRN Reason: Nausea and Vomiting Prednisone (Prednisone 20 Mg Tablet) 40 mg PO DAILY [facility] Last Admin: 08/20/24 09:47 Dose: 40 mg Sodium Chloride (0.9 % Sodium Chloride Flush 3 Ml Syringe) 3 ml IVFLUSH QSHIFT [facility] Last Admin: 08/20/24 09:49 Dose: 3 ml <Shara Oliva PA-C - Last Filed: 08/20/24 13:19> Home medications: Home Medications ?Medication ?Instructions ?Recorded ?Confirmed ?Last Taken ?Type cholecalciferol (vitamin D3) 250 250 mcg PO MOFR@0900 01/18/24 08/17/24 08/16/24 History mcg (10,000 unit) capsule mirabegron 25 mg tablet,extended 25 mg PO DAILY 01/18/24 08/17/24 08/17/24 09:00 History release 24 hr (Myrbetriq) levothyroxine 88 mcg tablet 88 mcg PO DAILY@0600 08/17/24 08/17/24 08/17/24 06:00 History mesalamine 500 mg capsule,extended 1,000 mg PO QID 08/17/24 08/17/24 08/17/24 09:00 History release (Pentasa) pantoprazole 40 mg tablet,delayed 40 mg PO DAILY@0630 08/17/24 08/17/24 08/17/24 07:00 History release <INNA Garcia Last Filed: 08/20/24 13:19> Physical Exam Vital Signs: Vital Signs: Last Vital Signs Temp 97.8 F 08/20/24 07:40 Pulse 55 08/20/24 07:40 Resp 16 08/20/24 07:40 BP 166/71 H 08/20/24 07:40 Pulse Ox 94 08/20/24 07:40 O2 Del Method Room Air 08/20/24 07:40 BMI result Body Mass Index 35.3 <INNA Garcia Last Filed: 08/20/24 13:19> Const: General: comfortable, no acute distress and alert <INNA Garcia Last Filed: 08/20/24 13:19> Orientation/consciousness: patient oriented x3 <INNA Garcia Last Filed: 08/20/24 13:19> Resp: Effort & Inspection: normal respiratory effort <INNA Garcia Last Filed: 08/20/24 13:19> GI: Inspection: Yes distended (mild ) and Yes scar (well healed midline scar ) <INNA Garcia Last Filed: 08/20/24 13:19> Palpation (GI): Soft to palpation, Tenderness to palpation present (GI) (mild tenderness right mid abdomen) and no guarding <INNA Garcia Last Filed: 08/20/24 13:19> Percussion: Yes tympanic to percussion <INNA Garcia Last Filed: 08/20/24 13:19> Skin: General skin exam: no rashes or lesions noted <INNA Garcia Last Filed: 08/20/24 13:19> Neuro: General: patient oriented x3 and moves all extremities <INNA Garcia Last Filed: 08/20/24 13:19> Results Labs Result diagrams: 08/20/24 05:31 08/20/24 05:31 <INNA Garcia Last Filed: 08/20/24 13:19> Labs: Abnormal lab results 08/20/24 Range/Units 05:31 RBC 4.12 L (4.20-5.50) X10*6/uL Hgb 11.2 L (12.0-16.0) g/dl Hct 35.4 L (37.0-47.0) % RDW 16.5 H (11.0-16.0) % Random Glucose 187 H (60-115) mg/dL Short CBC 08/20/24 Range/Units 05:31 WBC 10.5 (4.8-10.8) X10*3/uL Hgb 11.2 L (12.0-16.0) g/dl Hct 35.4 L (37.0-47.0) % Plt Count 278 (160-400) X10*3/uL BMP 08/20/24 05:31 Sodium 142 Potassium 3.3 Chloride 107 Carbon Dioxide 24 BUN 14 Creatinine 0.85 Calcium 8.4 Urine 08/17/24 Range/Units 10:52 Urine Color Dark Yellow Urine Appearance Cloudy Urine pH 5.5 (5.0-9.0) Ur Specific Sargents >= 1.030 H (1.005-1.025) Urine Protein 30 (1+) H (Neg-Trace) mg/dL Urine Glucose (UA) Negative (Negative) mg/dL All other labs normal. <INNA Garcia Last Filed: 08/20/24 13:19> Imaging Abdominal x-ray: image reviewed <INNA Garcia Last Filed: 08/20/24 13:19> Abdomen CT scan report/results: report reviewed and image reviewed <INNA Garcia Last Filed: 08/20/24 13:19> Assessment and Plan (1) Crohn's disease: Qualifiers: Digestive disease complication type: unspecified complication Gastrointestinal tract location: small intestine Qualified Code(s): K50.019 - Crohn's disease of small intestine with unspecified complications <Shara Oliva PA-C - Last Filed: 08/20/24 13:19> Status: Acute <Shara Oliva PA-C - Last Filed: 08/20/24 13:19> (2) Partial small bowel obstruction: Status: Acute <Shara Oliva PA-C - Last Filed: 08/20/24 13:19> Patient with history of subtotal colectomy in 2008 for Crohn's disease Has had multiple admissions for partial small-bowel obstruction since then Admitted last August 16, 2024 for partial small-bowel obstruction with abdominal pain CT scan reviewed - transition point seems to be in the pelvis She has improved significantly but says that she still needs Dilaudid for abdominal pain Has passed small amounts of it was this morning No vomiting Abdomen is soft and benign KUB this morning shows dilated small bowel loops so seems to be less compared to on admission Would keep on sips of clears only for now Encouraged ambulation Exam benign Seen and examined independently <Donn Valentin MD - Last Filed: 08/20/24 13:28> 63 yo female with PMH of Crohns disease s/p subtotal colectomy on humira, GERD, HLD, hypothyroidism, hyperparathyroidism admitted for PSBO, Crohns flare. She has had some improvement of her abdominal symptoms but reports increasing crampy pain with diet advancement. Overall she is clinically appearing well and her abd is benign but slightly distended. F/u KUB shows persistently dilated SB loops. Will deescalate diet back to small sips of liquids. Can hold off on NGT. Encouraged OOB, ambulation to promote GI function. Will continue to follow. <Shara Oliva PA-C - Last Filed: 08/20/24 13:19> Procedures Date of Service Date of Service: 08/20/24 <Shara Oliva PA-C - Last Filed: 08/20/24 13:19> 08/20/24 <Donn Valentin MD - Last Filed: 08/20/24 13:28>
--- NOTE | 2024-08-20 13:16 | PM.GICN ---
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 She denies fever, and passing gas but no stools. She hs simialr attacks 1-2 times a year which she attributes to crohn flare. She is only managed with pentasa and did try biologic in past with humira but it made her feel sick so was stopped. She denies rectal bleeding, melena and is not taking nsaid she had IV solumedrol and now transitioned to PO pred Review of Systems Review of Systems: Constitutional : No Weight loss, No Fever, No Chills ENT/Mouth : No sore throat, No Rhinorrhea Eyes: No Swelling, No Redness Cardiovascular : No Chest Pain, No SOB, No Edema Respiratory : No Cough, No Sputum, No Wheezing Gastrointestinal : see HPI Genitourinary : NO Dysuria, No Urinary Frequency, No Hematuria, No Urgency Musculoskeletal : + joint pain, No Myalgias, No Joint Swelling Skin : No Skin Lesions, No rash Neuro : No Weakness, No Numbness, No Dizziness, No Headache Psych : No Anxiety/Panic, No Depression Heme/Lymph: No Bruising, No Lymphadenopathy Endocrine : No Polyuria, No Polydipsia All other systems reviewed and are negative. [facility] Past Medical History Medical History (Updated 08/17/24 @ 13:47 by Antoni Johnson DO) Partial small bowel obstruction Microcytic hypochromic anemia History of small bowel obstruction Intermittent lightheadedness Dyslipidemia Impaired fasting glucose History of COVID-19 GERD (gastroesophageal reflux disease) Morbid obesity Hyperparathyroidism Overactive bladder Upper back pain, chronic Large breasts Vitamin D deficiency Osteoporosis Postmenopause History of shingles Acquired hypothyroidism RLS (restless legs syndrome) Family History Family History Father Lung cancer Mother Diabetes Hypertension Sister No problems noted. Mother Diabetes Paternal Grandmother Diabetes Father Lung cancer Paternal Uncle Lung cancer Surgical History Surgical History Hx of sigmoidoscopy Hx of reduction mammoplasty History of bowel resection History of esophagogastroduodenoscopy Hx of colonoscopy Hx of cholecystectomy Hx of tonsillectomy History of appendectomy H/O partial resection of colon Social History Social History Household Members: Family Housing: Apartment Are you a primary point of care technician to a significant other at home: No Do you presently have visiting nurse or other home services: No Alcohol intake: never Patient Tobacco Use Status: Never used Tobacco e-Cigarette/Vaping Use: Never Used Second Hand Smoke Exposure: No Advance Directives Date on File: 05/31/22 service: No Current occupational status: unemployed and disabled Current occupation: [employer] Cognitive needs: No Hearing needs: No Vision needs: Yes Meds Allergies Allergy/AdvReac Type Severity Reaction Status Date / Time No Known Allergies Allergy Verified 08/17/24 10:05 [No Known Allergies*] Active Medications: Current Medications Acetaminophen (Acetaminophen 325 Mg Tablet) 650 mg PO Q6H PRN PRN Reason: Pain, Mild (Pain Scale 1-3), fever or headache Last Admin: 08/20/24 12:17 Dose: 650 mg Calcium Carbonate (Calcium Carbonate 750 Mg Tab.Chew) 750 mg PO Q4H PRN PRN Reason: Heartburn Calcium Carbonate/Cholecalciferol (Calcium + Vitamin D 250 Mg Tablet) 250 mg PO BID REPLACED BY [facility] Last Admin: 08/20/24 09:47 Dose: 250 mg Dicyclomine HCl (Dicyclomine Hcl 10 Mg Capsule) 10 mg PO TIDAC PRN PRN Reason: abdominal pain Last Admin: 08/20/24 09:47 Dose: 10 mg Enoxaparin Sodium (Enoxaparin Sodium 40 Mg/0.4 Ml Syringe) 40 mg SUBCUT Q24H REPLACED BY [facility] Last Admin: 08/19/24 13:59 Dose: 40 mg Ferrous Sulfate (Ferrous Sulfate 324 Mg Tablet.) 324 mg PO DAILY REPLACED BY [facility] Last Admin: 08/20/24 09:47 Dose: 324 mg Levothyroxine Sodium (Levothyroxine Sodium 88 Mcg Tablet) 88 mcg PO DAILY@0600 REPLACED BY [facility] Last Admin: 08/20/24 05:51 Dose: 88 mcg Loratadine (Loratadine 10 Mg Tablet) 10 mg PO DAILY PRN PRN Reason: allergy symptoms Magnesium Hydroxide (Milk Of Magnesia 30 Ml Oral.Susp) 30 ml PO DAILY PRN PRN Reason: Constipation Melatonin (Melatonin 3 Mg Tablet) 6 mg PO BEDTIME PRN PRN Reason: Insomnia Mesalamine (Mesalamine 250 Mg Capsule.Er) 1,000 mg PO QID REPLACED BY [facility] Last Admin: 08/20/24 12:18 Dose: 1,000 mg Mirabegron (Mirabegron 25 Mg Tab.Er.24h) 25 mg PO DAILY REPLACED BY [facility] Last Admin: 08/20/24 09:47 Dose: 25 mg Omeprazole (Omeprazole 40 Mg Capsule.Dr) 40 mg PO DAILY@629 REPLACED BY [facility] Last Admin: 08/20/24 05:50 Dose: 40 mg Ondansetron HCl (Ondansetron Hcl 4 Mg/2 Ml Vial) 4 mg IVPUSH Q8H PRN PRN Reason: Nausea and Vomiting Prednisone (Prednisone 20 Mg Tablet) 40 mg PO DAILY REPLACED BY [facility] Last Admin: 08/20/24 09:47 Dose: 40 mg Sodium Chloride (0.9 % Sodium Chloride Flush 3 Ml Syringe) 3 ml IVFLUSH QSHIFT REPLACED BY [facility] Last Admin: 08/20/24 09:49 Dose: 3 ml Home Medications ?Medication ?Instructions ?Recorded ?Confirmed ?Last Taken ?Type cholecalciferol (vitamin D3) 250 250 mcg PO MOFR@0900 01/18/24 08/17/24 08/16/24 History mcg (10,000 unit) capsule mirabegron 25 mg tablet,extended 25 mg PO DAILY 01/18/24 08/17/24 08/17/24 09:00 History release 24 hr (Myrbetriq) levothyroxine 88 mcg tablet 88 mcg PO DAILY@0600 08/17/24 08/17/24 08/17/24 06:00 History mesalamine 500 mg capsule,extended 1,000 mg PO QID 08/17/24 08/17/24 08/17/24 09:00 History release (Pentasa) pantoprazole 40 mg tablet,delayed 40 mg PO DAILY@0630 08/17/24 08/17/24 08/17/24 07:00 History release Physical Exam Vital Signs: Vital Signs: Last Vital Signs Temp 97.8 F 08/20/24 07:40 Pulse 55 08/20/24 07:40 Resp 16 08/20/24 07:40 BP 166/71 H 08/20/24 07:40 Pulse Ox 94 08/20/24 07:40 O2 Del Method Room Air 08/20/24 07:40 BMI result Body Mass Index 35.3 EXAM: GENERAL: The patient is well developed and nontoxic. VITAL SIGNS:see workflow HEENT: Nonicteric sclerae, PERRLA, EOMI. Oropharynx clear. Moist mucous membranes. Conjunctivae appear well perfused. No thyroid mass. CHEST: Chest wall is nontender. HEART: Regular rate and rhythm without murmurs. LUNGS: Clear to auscultation bilaterally. ABDOMEN: Soft, positive bowel sounds, nontender, no organomegaly.no flank tenderness--lap scar seen SKIN: No rash, no excessive bruising, petechiae, or purpura. NEUROLOGIC: Cranial nerves II-XII intact without motor/sensory deficit. Psych: normal affect Results Labs 08/20/24 05:31 08/20/24 05:31 Labs: Short CBC 08/20/24 Range/Units 05:31 WBC 10.5 (4.8-10.8) X10*3/uL Hgb 11.2 L (12.0-16.0) g/dl Hct 35.4 L (37.0-47.0) % Plt Count 278 (160-400) X10*3/uL BMP 08/20/24 05:31 Sodium 142 Potassium 3.3 Chloride 107 Carbon Dioxide 24 BUN 14 Creatinine 0.85 Calcium 8.4 Microbiology Microbiology Results: Microbiology 08/17/24 Unknown Urine clean catch - Clean Catch Midstream Urine Culture - Final Imaging CT scan - abdomen: Attestation: I personally reviewed and interpreted this imaging study as follows: (dilated loops of small bowel, ) Assessment and Plan (1) Crohn's disease: Qualifiers: Digestive disease complication type: unspecified complication Gastrointestinal tract location: small intestine Qualified Code(s): K50.019 - Crohn's disease of small intestine with unspecified complications Status: Acute Plan 1/ Crohns flare with partial SBO possibly from anastomotic stricture. PLAN: 1/ Seems to be improving, would taper pred over next 3-4 weeks 2/ f/u with Dr Ritchie may benefit from entyvio in the longer run and rept endoscopy to interrogate anasotmosis and possible dilationn Procedures Date of Service Date of Service: 08/20/24
[2024-08-20 14:00] VITALS: BP 168/86; PULSE 59; RESP 18; TEMP 36.3; O2SAT 94
--- NOTE | 2024-08-20 15:39 | P.PNIM_ITS ---
Subjective Subjective Date of Service: 08/20/24 Interval History: Complaining of worsening abdominal pain, denies nausea, no vomiting, requesting for narcotics tolerated full liquid diet this morning. Last bowel movement 2 days ago. Review of Systems All other system reviewed and are negative. Physical Exam 2 Vital Signs: Vital Signs: Last Vital Signs Temp 97.3 F 08/20/24 14:00 Pulse 59 08/20/24 14:00 Resp 18 08/20/24 14:00 BP 168/86 H 08/20/24 14:00 Pulse Ox 94 08/20/24 14:00 O2 Del Method Room Air 08/20/24 14:00 BMI result Body Mass Index 35.3 Const: Other: General: Ax O X 3, no acute distress neck no JVD Resp: CTA bilateral CVS: S1,S2,RRR GI: +BS, mid abdominal discomfort with palpation, bowel sounds audible, no guarding, no rigidity Skin: No rash Neuro: motor grossly intact Psych: appropriate affect Objective Data Active Medications Acetaminophen (Acetaminophen 325 Mg Tablet) 650 mg PO Q6H PRN PRN Reason: Pain, Mild (Pain Scale 1-3), fever or headache Last Admin: 08/20/24 12:17 Dose: 650 mg Documented By: RAH Calcium Carbonate (Calcium Carbonate 750 Mg Tab.Chew) 750 mg PO Q4H PRN PRN Reason: Heartburn Calcium Carbonate/Cholecalciferol (Calcium + Vitamin D 250 Mg Tablet) 250 mg PO BID [facility] Last Admin: 08/20/24 09:47 Dose: 250 mg Documented By: RAH Dicyclomine HCl (Dicyclomine Hcl 10 Mg Capsule) 10 mg PO TIDAC PRN PRN Reason: abdominal pain Last Admin: 08/20/24 09:47 Dose: 10 mg Documented By: RAH Enoxaparin Sodium (Enoxaparin Sodium 40 Mg/0.4 Ml Syringe) 40 mg SUBCUT Q24H [facility] Last Admin: 08/19/24 13:59 Dose: 40 mg Documented By: JUDAH Ferrous Sulfate (Ferrous Sulfate 324 Mg Tablet.) 324 mg PO DAILY [facility] Last Admin: 08/20/24 09:47 Dose: 324 mg Documented By: RAH Levothyroxine Sodium (Levothyroxine Sodium 88 Mcg Tablet) 88 mcg PO DAILY@0600 [facility] Last Admin: 08/20/24 05:51 Dose: 88 mcg Documented By: AURELIO Loratadine (Loratadine 10 Mg Tablet) 10 mg PO DAILY PRN PRN Reason: allergy symptoms Magnesium Hydroxide (Milk Of Magnesia 30 Ml Oral.Susp) 30 ml PO DAILY PRN PRN Reason: Constipation Melatonin (Melatonin 3 Mg Tablet) 6 mg PO BEDTIME PRN PRN Reason: Insomnia Mesalamine (Mesalamine 250 Mg Capsule.Er) 1,000 mg PO QID [facility] Last Admin: 08/20/24 12:18 Dose: 1,000 mg Documented By: RAH Mirabegron (Mirabegron 25 Mg Tab.Er.24h) 25 mg PO DAILY [facility] Last Admin: 08/20/24 09:47 Dose: 25 mg Documented By: RAH Omeprazole (Omeprazole 40 Mg Capsule.Dr) 40 mg PO DAILY@0630 [facility] Last Admin: 08/20/24 05:50 Dose: 40 mg Documented By: AURELIO Ondansetron HCl (Ondansetron Hcl 4 Mg/2 Ml Vial) 4 mg IVPUSH Q8H PRN PRN Reason: Nausea and Vomiting Prednisone (Prednisone 20 Mg Tablet) 40 mg PO DAILY [facility] Last Admin: 08/20/24 09:47 Dose: 40 mg Documented By: RAH Sodium Chloride (0.9 % Sodium Chloride Flush 3 Ml Syringe) 3 ml IVFLUSH QSHIFT [facility] Last Admin: 08/20/24 09:49 Dose: 3 ml Documented By: RAH Labs 08/20/24 05:31 08/20/24 05:31 Labs: Laboratory Results - last 24 hr 08/20/24 05:31 MCV 85.9 MCH 27.2 MCHC 31.6 RDW 16.5 H Plt Count 278 MPV 10.3 Absolute Nucleated RBC 0.000 Nucleated RBC % (auto) 0.0 Anion Gap 14 Estim Creat Clear Calc 73.3 Estimated GFR > 60 Random Glucose 187 H Calcium 8.4 Assessment and Plan (1) Partial small bowel obstruction: Status: Acute (2) Crohn's disease: Status: Acute (3) Abdominal pain: Status: Acute Plan 63-year-old female with known history of Crohn's disease presents with a proximally 24 hours of worsening abdominal pain nausea and intermittent vomiting consistent with Crohn's exacerbation. She denies fever chills bloody stool; she is passing gas 1.PSBO/Crohn's exacerbation - complaining of mid abdominal pain worse this morning,on full liquid diet, no bowel movement in last 48 hours - WBC normalized, low normal potassium will replace - Noted to have similar episode in 02/05/2024, CT abdomen and pelvis showed multiple fluid filled and dilated small bowel loops, interposed areas of underdistention with circumferential wall thickening most prominent within left abdomen. - on iv methylprednisolone 60 mg q.6 hours, transitioned to by mouth prednisone 40 mg with tapering 10 mg Q weekly, continue Pentasa - avoid narcotics, DC IV Dilaudid , add Bentyl 10 mg t.i.d. as needed -repeat KUB shows persistently dilated small bowel loops - recommend out of bed to chair/ambulation as tolerated - surgery recommended NPO with sips of diet. - GI agree with above treatment of slow tapering steroids and outpatient follow- up with Dr. Navas - follow Cbc and lytes. 2. Hypothyroidism -continue outpatient supplements 3. GERD - PPI Full code Lovenox Will require continued inpatient hospitalization for management of Crohn's flare, unable to tolerate diet. Quality Stroke Does the patient have a stroke diagnosis?: No VTE Prior VTE?: No VTE Risk Level:: Medical - moderate - high VTE Device Contraindication: Treatment Not Indicated VTE Drug Contraindication: N/A - Med Ordered
[2024-08-20] MEDS: Enoxaparin Sodium 40 MG/0.4 ML SYRINGE SUBCUT (15:54)
[2024-08-20] MEDS: Potassium Chloride ER 20 MEQ TAB.ER.PRT PO (16:36)
[2024-08-20] MEDS: KCl 20 mEq in 5 % Dex/Lact Rin 20 MEQ/1,000 ML IV.SOLN 80 MEQ IVCONT (16:59)
[2024-08-20 19:48] VITALS: BP 161/72; PULSE 51; RESP 18; TEMP 36.3
[2024-08-20] MEDS: HYDROmorphone HCl 0.5 MG/0.5 ML SYRINGE 0.25 MG IVPUSH (22:19)
[2024-08-21 05:37] VITALS: BP 155/74; PULSE 55; RESP 16; TEMP 36.5; O2SAT 97
[2024-08-21] MEDS: HYDROmorphone HCl 0.5 MG/0.5 ML SYRINGE 0.25 MG IVPUSH ×4 (05:39→20:55)
[2024-08-21] MEDS: KCl 20 mEq in 5 % Dex/Lact Rin 20 MEQ/1,000 ML IV.SOLN 80 MEQ IVCONT ×2 (05:39→14:25)
[2024-08-21] MEDS: Omeprazole 40 MG CAPSULE.DR PO (05:39)
[2024-08-21] MEDS: Levothyroxine Sodium 88 MCG TABLET PO (05:39)
[2024-08-21 07:07] LABS: Anion Gap 12 (12-20); Blood Urea Nitrogen 15 mg/dL (9-16); Calcium 8.8 mg/dL (8.4-10.2); Carbon Dioxide 29 mmol/L (22-29); Chloride 106 mmol/L (96-108); Creatinine Clr Calc Pharmacy 78.8; Estimated Glomerular Filt Rate > 60; Glucose Random 101 mg/dL (60-115); Potassium 3.1 mmol/L (3.3-5.1); Sodium 144 mmol/L (135-145)
[2024-08-21 07:57] VITALS: BP 160/70; PULSE 61; RESP 17; TEMP 36.4; O2SAT 95
--- NOTE | 2024-08-21 08:25 | P.PNGS_ITS ---
Subjective Subjective Date of Service: 08/21/24 Interval history: Feels much better today Slept well overnight Passing flatus Physical Exam 2 Vital Signs: Vital Signs: Last Vital Signs Temp 97.5 F 08/21/24 07:57 Pulse 61 08/21/24 07:57 Resp 17 08/21/24 07:57 BP 160/70 H 08/21/24 07:57 Pulse Ox 95 08/21/24 07:57 O2 Del Method Room Air 08/21/24 07:57 BMI result Body Mass Index 35.3 Const: General: comfortable and no acute distress Resp: Effort & Inspection: normal respiratory effort Cardio: Rate: regular rate GI: Palpation (GI): Soft to palpation, not firm, nontender and no guarding Objective Data Active Medications Acetaminophen (Acetaminophen 325 Mg Tablet) 650 mg PO Q6H PRN PRN Reason: Pain, Mild (Pain Scale 1-3), fever or headache Last Admin: 08/20/24 12:17 Dose: 650 mg Documented By: RAH Calcium Carbonate (Calcium Carbonate 750 Mg Tab.Chew) 750 mg PO Q4H PRN PRN Reason: Heartburn Calcium Carbonate/Cholecalciferol (Calcium + Vitamin D 250 Mg Tablet) 250 mg PO BID [facility] Last Admin: 08/20/24 21:39 Dose: 250 mg Documented By: ALEXANDRIA Dicyclomine HCl (Dicyclomine Hcl 10 Mg Capsule) 10 mg PO TIDAC PRN PRN Reason: abdominal pain Last Admin: 08/20/24 09:47 Dose: 10 mg Documented By: RAH Enoxaparin Sodium (Enoxaparin Sodium 40 Mg/0.4 Ml Syringe) 40 mg SUBCUT Q24H [facility] Last Admin: 08/20/24 15:54 Dose: 40 mg Documented By: RAH Ferrous Sulfate (Ferrous Sulfate 324 Mg Tablet.Dr) 324 mg PO DAILY [facility] Last Admin: 08/20/24 09:47 Dose: 324 mg Documented By: RAH Hydromorphone HCl (Hydromorphone Hcl 0.5 Mg/0.5 Ml Syringe) 0.25 mg IVPUSH Q4H PRN; Protocol PRN Reason: Pain, Severe (Pain Scale 7-10) Last Admin: 08/21/24 05:39 Dose: 0.25 mg Documented By: LISSETTE Potassium Cl/Dextrose/Lact Ringer's (Kcl 20 Meq In 5 % Dex/Lact Rin) 20 meq in 1,000 mls @ 80 mls/hr IVCONT .[id number] [facility] Last Admin: 08/21/24 05:39 Dose: 80 mls/hr Documented By: LISSETTE Potassium Chloride (Potassium Chloride/H20) 10 meq in 100 mls @ 100 mls/hr IV Q1H [facility] Stop: 08/21/24 09:44 Levothyroxine Sodium (Levothyroxine Sodium 88 Mcg Tablet) 88 mcg PO DAILY@0600 [facility] Last Admin: 08/21/24 05:39 Dose: 88 mcg Documented By: LISSETTE Loratadine (Loratadine 10 Mg Tablet) 10 mg PO DAILY PRN PRN Reason: allergy symptoms Magnesium Hydroxide (Milk Of Magnesia 30 Ml Oral.Susp) 30 ml PO DAILY PRN PRN Reason: Constipation Melatonin (Melatonin 3 Mg Tablet) 6 mg PO BEDTIME PRN PRN Reason: Insomnia Mesalamine (Mesalamine 250 Mg Capsule.Er) 1,000 mg PO QID [facility] Last Admin: 08/20/24 21:40 Dose: 1,000 mg Documented By: ALEXANDRIA Mirabegron (Mirabegron 25 Mg Tab.Er.24h) 25 mg PO DAILY [facility] Last Admin: 08/20/24 09:47 Dose: 25 mg Documented By: RAH Omeprazole (Omeprazole 40 Mg Capsule.Dr) 40 mg PO DAILY@0630 [facility] Last Admin: 08/21/24 05:39 Dose: 40 mg Documented By: LISSETTE Ondansetron HCl (Ondansetron Hcl 4 Mg/2 Ml Vial) 4 mg IVPUSH Q8H PRN PRN Reason: Nausea and Vomiting Prednisone (Prednisone 20 Mg Tablet) 40 mg PO DAILY [facility] Last Admin: 08/20/24 09:47 Dose: 40 mg Documented By: RAH Sodium Chloride (0.9 % Sodium Chloride Flush 3 Ml Syringe) 3 ml IVFLUSH QSHIFT [facility] Last Admin: 08/20/24 23:47 Dose: Not Given Documented By: ALEXANDRIA Non-Admin Reason: No Access Labs 08/20/24 05:31 08/21/24 05:24 Labs: Laboratory Results - last 24 hr 08/21/24 05:24 Hold Purple Top SEE NOTE Anion Gap 12 Estim Creat Clear Calc 78.8 Estimated GFR > 60 Random Glucose 101 Calcium 8.8 Procedures Date of Service Date of Service: 08/21/24 Progress Note: A&P Assessment and plan (1) Partial small bowel obstruction: Status: Acute Assessment and Plan: Feels better Restart on clear liquids Abdomen is soft and benign Encouraged to ambulate Replace potassium Time Spent With Patient Time: Total time managing care of this patient today ____ minutes. Quality Stroke Does the patient have a stroke diagnosis?: No VTE Prior VTE?: No VTE Risk Level:: Medical - moderate - high VTE Device Contraindication: Treatment Not Indicated VTE Drug Contraindication: N/A - Med Ordered
[2024-08-21] MEDS: Mesalamine 250 MG CAPSULE.ER 1000 MG PO ×4 (08:28→20:56)
[2024-08-21] MEDS: Calcium + Vitamin D 250 MG TABLET PO ×2 (08:29→20:56)
[2024-08-21] MEDS: predniSONE 20 MG TABLET 40 MG PO (08:29)
[2024-08-21] MEDS: Ferrous Sulfate 324 MG TABLET.DR PO (08:29)
[2024-08-21] MEDS: Mirabegron 25 MG TAB.ER.24H PO (08:29)
[2024-08-21] MEDS: Potassium Chloride/H20 10 MEQ/100 ML PIGGYBACK 100 MEQ IV ×2 (08:35→09:37)
--- NOTE | 2024-08-21 11:02 | MHC.CM.PN ---
Per MD rounds patient not medically cleared for dc. CM will continue to follow.
--- NOTE | 2024-08-21 12:02 | HO.PM.IMPN ---
Subjective Subjective Date of Service: 08/21/24 Interval History: Feeling better, using pain meds every 6 hours, denies abdominal pain, passing flatus, ambulating in hallways denies fever, no chills, no nausea, no vomiting, NPO last 24 hours. Review of Systems All other system reviewed and are negative. Physical Exam Vital Signs: Vital Signs: Last Vital Signs Temp 97.5 F 08/21/24 07:57 Pulse 61 08/21/24 07:57 Resp 17 08/21/24 07:57 BP 160/70 H 08/21/24 07:57 Pulse Ox 95 08/21/24 07:57 O2 Del Method Room Air 08/21/24 07:57 BMI result Body Mass Index 35.3 Const: Other: General: Ax O X 3, no acute distress neck no JVD Resp: CTA bilateral CVS: S1,S2,RRR GI: +BS, soft, nontender, bowel sounds audible, no guarding, no rigidity Skin: No rash Neuro: motor grossly intact Psych: appropriate affect Objective Data Active Medications Acetaminophen (Acetaminophen 325 Mg Tablet) 650 mg PO Q6H PRN PRN Reason: Pain, Mild (Pain Scale 1-3), fever or headache Last Admin: 08/20/24 12:17 Dose: 650 mg Documented By: RAH Calcium Carbonate (Calcium Carbonate 750 Mg Tab.Chew) 750 mg PO Q4H PRN PRN Reason: Heartburn Calcium Carbonate/Cholecalciferol (Calcium + Vitamin D 250 Mg Tablet) 250 mg PO BID [facility] Last Admin: 08/21/24 08:29 Dose: 250 mg Documented By: NISHANT Dicyclomine HCl (Dicyclomine Hcl 10 Mg Capsule) 10 mg PO TIDAC PRN PRN Reason: abdominal pain Last Admin: 08/20/24 09:47 Dose: 10 mg Documented By: RAH Enoxaparin Sodium (Enoxaparin Sodium 40 Mg/0.4 Ml Syringe) 40 mg SUBCUT Q24H [facility] Last Admin: 08/20/24 15:54 Dose: 40 mg Documented By: RAH Ferrous Sulfate (Ferrous Sulfate 324 Mg Tablet.) 324 mg PO DAILY [facility] Last Admin: 08/21/24 08:29 Dose: 324 mg Documented By: NISHANT Hydromorphone HCl (Hydromorphone Hcl 0.5 Mg/0.5 Ml Syringe) 0.25 mg IVPUSH Q4H PRN; Protocol PRN Reason: Pain, Severe (Pain Scale 7-10) Last Admin: 08/21/24 10:44 Dose: 0.25 mg Documented By: NISHANT Potassium Cl/Dextrose/Lact Ringer's (Kcl 20 Meq In 5 % Dex/Lact Rin) 20 meq in 1,000 mls @ 80 mls/hr IVCONT .[id number] [facility] Last Admin: 08/21/24 05:39 Dose: 80 mls/hr Documented By: LISSETTE Levothyroxine Sodium (Levothyroxine Sodium 88 Mcg Tablet) 88 mcg PO DAILY@0600 [facility] Last Admin: 08/21/24 05:39 Dose: 88 mcg Documented By: LISSETTE Loratadine (Loratadine 10 Mg Tablet) 10 mg PO DAILY PRN PRN Reason: allergy symptoms Magnesium Hydroxide (Milk Of Magnesia 30 Ml Oral.Susp) 30 ml PO DAILY PRN PRN Reason: Constipation Melatonin (Melatonin 3 Mg Tablet) 6 mg PO BEDTIME PRN PRN Reason: Insomnia Mesalamine (Mesalamine 250 Mg Capsule.Er) 1,000 mg PO QID [facility] Last Admin: 08/21/24 08:28 Dose: 1,000 mg Documented By: NISHANT Mirabegron (Mirabegron 25 Mg Tab.Er.24h) 25 mg PO DAILY [facility] Last Admin: 08/21/24 08:29 Dose: 25 mg Documented By: NISHANT Omeprazole (Omeprazole 40 Mg Capsule.Dr) 40 mg PO DAILY@0630 [facility] Last Admin: 08/21/24 05:39 Dose: 40 mg Documented By: LISSETTE Ondansetron HCl (Ondansetron Hcl 4 Mg/2 Ml Vial) 4 mg IVPUSH Q8H PRN PRN Reason: Nausea and Vomiting Prednisone (Prednisone 20 Mg Tablet) 40 mg PO DAILY [facility] Last Admin: 08/21/24 08:29 Dose: 40 mg Documented By: NISHANT Sodium Chloride (0.9 % Sodium Chloride Flush 3 Ml Syringe) 3 ml IVFLUSH QSHIFT [facility] Last Admin: 08/21/24 08:31 Dose: Not Given Documented By: NISHANT Non-Admin Reason: IV Running Labs 08/20/24 05:31 08/21/24 05:24 Labs: Laboratory Results - last 24 hr 08/21/24 05:24 Hold Purple Top SEE NOTE Anion Gap 12 Estim Creat Clear Calc 78.8 Estimated GFR > 60 Random Glucose 101 Calcium 8.8 Assessment and Plan (1) Partial small bowel obstruction: Status: Acute (2) Crohn's disease: Status: Acute (3) Abdominal pain: Status: Acute (4) Hypokalemia: Status: Acute Plan 63-year-old female with known history of Crohn's disease presents with a proximally 24 hours of worsening abdominal pain nausea and intermittent vomiting consistent with Crohn's exacerbation. She denies fever chills bloody stool; she is passing gas 1.PSBO/Crohn's exacerbation - abdominal pain improved, was made NPO yesterday due to worsening pain, KUB showed persistent dilated bowel loops predominantly right abdomen - WBC normalized, low potassium - Noted to have similar episode in 02/05/2024, CT abdomen and pelvis showed multiple fluid filled and dilated small bowel loops, interposed areas of underdistention with circumferential wall thickening most prominent within left abdomen. - s/p iv methylprednisolone 60 mg q.6 hours, transitioned to by mouth prednisone 40 mg with tapering 10 mg Q weekly, continue Pentasa - avoid high-dose narcotics, continue IV Dilaudid low-dose and Bentyl 10 mg t.i.d. as needed - recommend out of bed to chair/ambulation as tolerated - being followed by General surgery they recommend clear liquid diet and gradually advance as tolerated - GI agree with above treatment of slow tapering steroids and outpatient follow-up with Dr. Navas - follow Cbc and lytes. 2. Hypothyroidism -continue outpatient supplements 3. GERD - PPI 4. Acute hypokalemia will replete and follow labs. Full code Lovenox Will require continued inpatient hospitalization for management of Crohn's flare, unable to tolerate diet. Quality Stroke Does the patient have a stroke diagnosis?: No VTE Prior VTE?: No VTE Risk Level:: Medical - moderate - high VTE Device Contraindication: Treatment Not Indicated VTE Drug Contraindication: N/A - Med Ordered
[2024-08-21] MEDS: Potassium Chloride ER 20 MEQ TAB.ER.PRT PO (13:27)
[2024-08-21] MEDS: Enoxaparin Sodium 40 MG/0.4 ML SYRINGE SUBCUT (13:28)
[2024-08-21 14:00] VITALS: BP 115/55; PULSE 6; RESP 18; TEMP 36.3; O2SAT 97
[2024-08-21 22:00] VITALS: BP 147/63; PULSE 65; RESP 18; TEMP 36.3; O2SAT 97
[2024-08-21 23:36] VITALS: BP 104/58; PULSE 88; RESP 18; TEMP 36.3; O2SAT 97
[2024-08-22] MEDS: KCl 20 mEq in 5 % Dex/Lact Rin 20 MEQ/1,000 ML IV.SOLN 80 MEQ IVCONT (03:16)
[2024-08-22 03:38] VITALS: BP 147/72; PULSE 52; RESP 18; TEMP 37; O2SAT 95
[2024-08-22] MEDS: Omeprazole 40 MG CAPSULE.DR PO (05:59)
[2024-08-22] MEDS: Levothyroxine Sodium 88 MCG TABLET PO (06:00)
[2024-08-22] MEDS: HYDROmorphone HCl 0.5 MG/0.5 ML SYRINGE 0.25 MG IVPUSH ×4 (06:50→20:37)
[2024-08-22 08:10] LABS: Anion Gap 13 (12-20); Blood Urea Nitrogen 12 mg/dL (9-16); Calcium 8.9 mg/dL (8.4-10.2); Carbon Dioxide 29 mmol/L (22-29); Chloride 105 mmol/L (96-108); Estimated Glomerular Filt Rate > 60; Glucose Random 99 mg/dL (60-115); Potassium 3.5 mmol/L (3.3-5.1); Sodium 143 mmol/L (135-145)
[2024-08-22 08:17] VITALS: BP 146/72; PULSE 49; RESP 12; TEMP 36.4; O2SAT 94
[2024-08-22] MEDS: Mirabegron 25 MG TAB.ER.24H PO (09:17)
[2024-08-22] MEDS: predniSONE 20 MG TABLET 40 MG PO (09:17)
[2024-08-22] MEDS: Mesalamine 250 MG CAPSULE.ER 1000 MG PO ×4 (09:17→20:37)
[2024-08-22] MEDS: Ferrous Sulfate 324 MG TABLET.DR PO (09:17)
[2024-08-22] MEDS: Calcium + Vitamin D 250 MG TABLET PO ×2 (09:17→20:37)
--- NOTE | 2024-08-22 09:24 | PM.PNGS ---
Subjective Subjective Date of Service: 08/22/24 Interval history: She says she feels well Passing flatus Abdominal pain much improved Tolerated liquids Physical Exam Vital Signs: Vital Signs: Last Vital Signs Temp 97.6 F 08/22/24 08:17 Pulse 49 L 08/22/24 08:17 Resp 12 08/22/24 08:17 BP 146/72 H 08/22/24 08:17 Pulse Ox 94 08/22/24 08:17 O2 Del Method Room Air 08/22/24 08:17 BMI result Body Mass Index 35.3 Const: General: comfortable and no acute distress Resp: Effort & Inspection: normal respiratory effort Cardio: Rate: regular rate GI: Palpation (GI): Soft to palpation, not firm, nontender and no guarding Objective Data Active Medications Acetaminophen (Acetaminophen 325 Mg Tablet) 650 mg PO Q6H PRN PRN Reason: Pain, Mild (Pain Scale 1-3), fever or headache Last Admin: 08/20/24 12:17 Dose: 650 mg Documented By: RAH Calcium Carbonate (Calcium Carbonate 750 Mg Tab.Chew) 750 mg PO Q4H PRN PRN Reason: Heartburn Calcium Carbonate/Cholecalciferol (Calcium + Vitamin D 250 Mg Tablet) 250 mg PO BID [facility] Last Admin: 08/22/24 09:17 Dose: 250 mg Documented By: LÁZARO Dicyclomine HCl (Dicyclomine Hcl 10 Mg Capsule) 10 mg PO TIDAC PRN PRN Reason: abdominal pain Last Admin: 08/20/24 09:47 Dose: 10 mg Documented By: RAH Enoxaparin Sodium (Enoxaparin Sodium 40 Mg/0.4 Ml Syringe) 40 mg SUBCUT Q24H [facility] Last Admin: 08/21/24 13:28 Dose: 40 mg Documented By: NISHANT Ferrous Sulfate (Ferrous Sulfate 324 Mg Tablet.Dr) 324 mg PO DAILY [facility] Last Admin: 08/22/24 09:17 Dose: 324 mg Documented By: LÁZARO Hydromorphone HCl (Hydromorphone Hcl 0.5 Mg/0.5 Ml Syringe) 0.25 mg IVPUSH Q4H PRN; Protocol PRN Reason: Pain, Severe (Pain Scale 7-10) Last Admin: 08/22/24 06:50 Dose: 0.25 mg Documented By: ALEXANDRIA Potassium Cl/Dextrose/Lact Ringer's (Kcl 20 Meq In 5 % Dex/Lact Rin) 20 meq in 1,000 mls @ 80 mls/hr IVCONT .[id number] [facility] Last Admin: 08/22/24 03:16 Dose: 80 mls/hr Documented By: ALEXANDRIA Levothyroxine Sodium (Levothyroxine Sodium 88 Mcg Tablet) 88 mcg PO DAILY@0600 [facility] Last Admin: 08/22/24 06:00 Dose: 88 mcg Documented By: ALEXANDRIA Loratadine (Loratadine 10 Mg Tablet) 10 mg PO DAILY PRN PRN Reason: allergy symptoms Magnesium Hydroxide (Milk Of Magnesia 30 Ml Oral.Susp) 30 ml PO DAILY PRN PRN Reason: Constipation Melatonin (Melatonin 3 Mg Tablet) 6 mg PO BEDTIME PRN PRN Reason: Insomnia Mesalamine (Mesalamine 250 Mg Capsule.Er) 1,000 mg PO QID [facility] Last Admin: 08/22/24 09:17 Dose: 1,000 mg Documented By: LÁZARO Mirabegron (Mirabegron 25 Mg Tab.Er.24h) 25 mg PO DAILY [facility] Last Admin: 08/22/24 09:17 Dose: 25 mg Documented By: LÁZARO Omeprazole (Omeprazole 40 Mg Capsule.Dr) 40 mg PO DAILY@0630 [facility] Last Admin: 08/22/24 05:59 Dose: 40 mg Documented By: ALEXANDRIA Ondansetron HCl (Ondansetron Hcl 4 Mg/2 Ml Vial) 4 mg IVPUSH Q8H PRN PRN Reason: Nausea and Vomiting Prednisone (Prednisone 20 Mg Tablet) 40 mg PO DAILY [facility] Last Admin: 08/22/24 09:17 Dose: 40 mg Documented By: LÁZARO Sodium Chloride (0.9 % Sodium Chloride Flush 3 Ml Syringe) 3 ml IVFLUSH QSHIFT [facility] Last Admin: 08/22/24 07:16 Dose: Not Given Documented By: LÁZARO Non-Admin Reason: Previously Administered Labs 08/20/24 05:31 08/22/24 06:38 Labs: Laboratory Results - last 24 hr 08/22/24 06:38 Anion Gap 13 Estim Creat Clear Calc 75.0 Estimated GFR > 60 Random Glucose 99 Calcium 8.9 Procedures Date of Service Date of Service: 08/22/24 Progress Note: A&P Assessment and plan (1) Partial small bowel obstruction: Status: Acute Assessment and Plan: Passing flatus Abdominal pain much improved Abdomen is soft and benign Okay to advance diet slowly as tolerated Ambulate Exam benign Time Spent With Patient Time: Total time managing care of this patient today ____ minutes. Quality Stroke Does the patient have a stroke diagnosis?: No VTE Prior VTE?: No VTE Risk Level:: Medical - moderate - high VTE Device Contraindication: Treatment Not Indicated VTE Drug Contraindication: N/A - Med Ordered
--- NOTE | 2024-08-22 13:08 | P.PNIM_ITS ---
Subjective Subjective Date of Service: 08/22/24 Interval History: Feeling better still with right-sided abdominal pain, had 2 bowel movement this morning requesting to advance diet, no nausea, no vomiting has been ambulating in hallway. Review of Systems All other system reviewed and are negative Physical Exam 2 Vital Signs: Vital Signs: Last Vital Signs Temp 97.6 F 08/22/24 08:17 Pulse 49 L 08/22/24 08:17 Resp 12 08/22/24 08:17 BP 146/72 H 08/22/24 08:17 Pulse Ox 94 08/22/24 08:17 O2 Del Method Room Air 08/22/24 08:17 BMI result Body Mass Index 35.3 Const: Other: General: Ax O X 3, no acute distress neck no JVD Resp: CTA bilateral CVS: S1,S2,RRR GI: +BS, soft, mild discomfort right side of abdomen, bowel sounds audible, no guarding, no rigidity Skin: No rash Neuro: motor grossly intact Psych: appropriate affect Objective Data Active Medications Acetaminophen (Acetaminophen 325 Mg Tablet) 650 mg PO Q6H PRN PRN Reason: Pain, Mild (Pain Scale 1-3), fever or headache Last Admin: 08/20/24 12:17 Dose: 650 mg Documented By: RAH Calcium Carbonate (Calcium Carbonate 750 Mg Tab.Chew) 750 mg PO Q4H PRN PRN Reason: Heartburn Calcium Carbonate/Cholecalciferol (Calcium + Vitamin D 250 Mg Tablet) 250 mg PO BID [facility] Last Admin: 08/22/24 09:17 Dose: 250 mg Documented By: LÁZARO Dicyclomine HCl (Dicyclomine Hcl 10 Mg Capsule) 10 mg PO TIDAC PRN PRN Reason: abdominal pain Last Admin: 08/20/24 09:47 Dose: 10 mg Documented By: RAH Enoxaparin Sodium (Enoxaparin Sodium 40 Mg/0.4 Ml Syringe) 40 mg SUBCUT Q24H [facility] Last Admin: 08/21/24 13:28 Dose: 40 mg Documented By: NISHANT Ferrous Sulfate (Ferrous Sulfate 324 Mg Tablet.) 324 mg PO DAILY [facility] Last Admin: 08/22/24 09:17 Dose: 324 mg Documented By: LÁZARO Hydromorphone HCl (Hydromorphone Hcl 0.5 Mg/0.5 Ml Syringe) 0.25 mg IVPUSH Q4H PRN; Protocol PRN Reason: Pain, Severe (Pain Scale 7-10) Last Admin: 08/22/24 10:56 Dose: 0.25 mg Documented By: LÁZARO Levothyroxine Sodium (Levothyroxine Sodium 88 Mcg Tablet) 88 mcg PO DAILY@0600 [facility] Last Admin: 08/22/24 06:00 Dose: 88 mcg Documented By: ALEXANDRIA Loratadine (Loratadine 10 Mg Tablet) 10 mg PO DAILY PRN PRN Reason: allergy symptoms Magnesium Hydroxide (Milk Of Magnesia 30 Ml Oral.Susp) 30 ml PO DAILY PRN PRN Reason: Constipation Melatonin (Melatonin 3 Mg Tablet) 6 mg PO BEDTIME PRN PRN Reason: Insomnia Mesalamine (Mesalamine 250 Mg Capsule.Er) 1,000 mg PO QID [facility] Last Admin: 08/22/24 09:17 Dose: 1,000 mg Documented By: LÁZARO Mirabegron (Mirabegron 25 Mg Tab.Er.24h) 25 mg PO DAILY [facility] Last Admin: 08/22/24 09:17 Dose: 25 mg Documented By: LÁZARO Omeprazole (Omeprazole 40 Mg Capsule.Dr) 40 mg PO DAILY@0630 [facility] Last Admin: 08/22/24 05:59 Dose: 40 mg Documented By: ALEXANDRIA Ondansetron HCl (Ondansetron Hcl 4 Mg/2 Ml Vial) 4 mg IVPUSH Q8H PRN PRN Reason: Nausea and Vomiting Prednisone (Prednisone 20 Mg Tablet) 40 mg PO DAILY [facility] Last Admin: 08/22/24 09:17 Dose: 40 mg Documented By: LÁZARO Sodium Chloride (0.9 % Sodium Chloride Flush 3 Ml Syringe) 3 ml IVFLUSH QSHIFT [facility] Last Admin: 08/22/24 07:16 Dose: Not Given Documented By: LÁZARO Non-Admin Reason: Previously Administered Labs 08/20/24 05:31 08/22/24 06:38 Labs: Laboratory Results - last 24 hr 08/22/24 06:38 Anion Gap 13 Estim Creat Clear Calc 75.0 Estimated GFR > 60 Random Glucose 99 Calcium 8.9 Assessment and Plan (1) Hypokalemia: Status: Acute (2) Partial small bowel obstruction: Status: Acute (3) Crohn's disease: Status: Acute Plan 63-year-old female with known history of Crohn's disease presents with a proximally 24 hours of worsening abdominal pain nausea and intermittent vomiting consistent with Crohn's exacerbation. She denies fever chills bloody stool; she is passing gas 1.PSBO/Crohn's exacerbation - abdominal pain improved, was on full liquid diet but due to worsening pain made NPO 08/20 , KUB showed persistent dilated bowel loops predominantly right abdomen - WBC and potassium normalized - Noted to have similar episode in 02/05/2024, CT abdomen and pelvis showed multiple fluid filled and dilated small bowel loops, interposed areas of underdistention with circumferential wall thickening most prominent within left abdomen. - s/p iv methylprednisolone 60 mg q.6 hours, transitioned to by mouth prednisone 40 mg on 08/20 with tapering 10 mg Q weekly, continue Pentasa - avoid high-dose narcotics, on IV Dilaudid low-dose and Bentyl 10 mg t.i.d. as needed - recommend out of bed to chair/ambulation as tolerated - being followed by General surgery they recommend gradually advance diet currently on clear liquid diet , will advance to full liquid , DC fluids - GI agree with above treatment of slow tapering steroids and outpatient follow- up with Dr. Navas - follow Cbc and lytes. 2. Hypothyroidism -continue outpatient supplements 3. GERD - PPI 4. Acute hypokalemia repleted and normalized Full code Lovenox Will require continued inpatient hospitalization for management of Crohn's flare, unable to tolerate diet. Quality Stroke Does the patient have a stroke diagnosis?: No VTE Prior VTE?: No VTE Risk Level:: Medical - moderate - high VTE Device Contraindication: Treatment Not Indicated VTE Drug Contraindication: N/A - Med Ordered
[2024-08-22] MEDS: Enoxaparin Sodium 40 MG/0.4 ML SYRINGE SUBCUT (13:53)
[2024-08-22] MEDS: Potassium Chloride ER 20 MEQ TAB.ER.PRT PO (13:54)
[2024-08-22 14:00] VITALS: BP 120/59; PULSE 69; RESP 16; TEMP 36.6; O2SAT 97
--- NOTE | 2024-08-22 18:35 | PC.NURSE ---
Pt tolerating diet advancement. assessed pt this AM. Pt ambulating in halls throughout the day. Passing gas and had 1 BM. Precautions maintained. no acute complications this shift
[2024-08-22 20:37] VITALS: RESP 17
[2024-08-22] MEDS: 0.9 % Sodium Chloride Flush 3 ML SYRINGE IVFLUSH (20:40)
[2024-08-22 21:10] VITALS: BP 148/74; PULSE 63; RESP 18; TEMP 36.1; O2SAT 95
[2024-08-23 01:57] VITALS: RESP 16
[2024-08-23] MEDS: HYDROmorphone HCl 0.5 MG/0.5 ML SYRINGE 0.25 MG IVPUSH ×5 (01:57→20:01)
[2024-08-23 03:55] VITALS: BP 140/63; PULSE 51; RESP 18; TEMP 36.4; O2SAT 98
[2024-08-23] MEDS: Levothyroxine Sodium 88 MCG TABLET PO (06:26)
[2024-08-23] MEDS: Omeprazole 40 MG CAPSULE.DR PO (06:26)
[2024-08-23 08:07] VITALS: BP 111/59; PULSE 60; RESP 12; TEMP 37.1; O2SAT 97
[2024-08-23] MEDS: 0.9 % Sodium Chloride Flush 3 ML SYRINGE IVFLUSH ×3 (08:28→20:02)
[2024-08-23] MEDS: Mesalamine 250 MG CAPSULE.ER 1000 MG PO ×4 (08:28→20:02)
[2024-08-23] MEDS: Mirabegron 25 MG TAB.ER.24H PO (08:28)
[2024-08-23] MEDS: predniSONE 20 MG TABLET 40 MG PO (08:28)
[2024-08-23] MEDS: Calcium + Vitamin D 250 MG TABLET PO ×2 (08:29→20:02)
[2024-08-23] MEDS: Ferrous Sulfate 324 MG TABLET.DR PO (08:29)
--- NOTE | 2024-08-23 11:07 | MHC.CM.PN ---
Per MD rounds patient not medically cleared for dc at this time, advancing diet. If tolerating can dc later today. ?need for VNA. CM will continue to follow.
--- NOTE | 2024-08-23 12:09 | P.PNIM_ITS ---
Subjective Subjective Date of Service: 08/23/24 Interval History: abd pain improved no N/V no BRBPR Review of Systems Review of Systems: Yes all other systems are reviewed and are negative Physical Exam 2 Vital Signs: Vital Signs: Last Vital Signs Temp 98.7 F 08/23/24 08:07 Pulse 60 08/23/24 08:07 Resp 12 08/23/24 08:07 BP 111/59 L 08/23/24 08:07 Pulse Ox 97 08/23/24 08:07 O2 Del Method Room Air 08/23/24 08:07 BMI result Body Mass Index 35.3 Gen: in no acute distress HEENT: sclera anicteric, moist mucus membranes Neck: supple Lungs: clear to auscultation bilaterally Heart: regular rate and rhythm, no murmurs Abd: soft, mild tenderness without rebound, non-distended Ext: no edema Skin: warm/well-perfused Neuro: alert and oriented x3, no focal findings Psych: appropriate affect Objective Data Active Medications Acetaminophen (Acetaminophen 325 Mg Tablet) 650 mg PO Q6H PRN PRN Reason: Pain, Mild (Pain Scale 1-3), fever or headache Last Admin: 08/20/24 12:17 Dose: 650 mg Documented By: RAH Calcium Carbonate (Calcium Carbonate 750 Mg Tab.Chew) 750 mg PO Q4H PRN PRN Reason: Heartburn Calcium Carbonate/Cholecalciferol (Calcium + Vitamin D 250 Mg Tablet) 250 mg PO BID [facility] Last Admin: 08/23/24 08:29 Dose: 250 mg Documented By: NASIM Dicyclomine HCl (Dicyclomine Hcl 10 Mg Capsule) 10 mg PO TIDAC PRN PRN Reason: abdominal pain Last Admin: 08/20/24 09:47 Dose: 10 mg Documented By: RAH Enoxaparin Sodium (Enoxaparin Sodium 40 Mg/0.4 Ml Syringe) 40 mg SUBCUT Q24H [facility] Last Admin: 08/22/24 13:53 Dose: 40 mg Documented By: LÁZARO Ferrous Sulfate (Ferrous Sulfate 324 Mg Tablet.Dr) 324 mg PO DAILY [facility] Last Admin: 08/23/24 08:29 Dose: 324 mg Documented By: NASIM Hydromorphone HCl (Hydromorphone Hcl 0.5 Mg/0.5 Ml Syringe) 0.25 mg IVPUSH Q4H PRN; Protocol PRN Reason: Pain, Severe (Pain Scale 7-10) Last Admin: 08/23/24 08:28 Dose: 0.25 mg Documented By: NASIM Levothyroxine Sodium (Levothyroxine Sodium 88 Mcg Tablet) 88 mcg PO DAILY@0600 [facility] Last Admin: 08/23/24 06:26 Dose: 88 mcg Documented By: PAULINE Loratadine (Loratadine 10 Mg Tablet) 10 mg PO DAILY PRN PRN Reason: allergy symptoms Magnesium Hydroxide (Milk Of Magnesia 30 Ml Oral.Susp) 30 ml PO DAILY PRN PRN Reason: Constipation Melatonin (Melatonin 3 Mg Tablet) 6 mg PO BEDTIME PRN PRN Reason: Insomnia Mesalamine (Mesalamine 250 Mg Capsule.Er) 1,000 mg PO QID [facility] Last Admin: 08/23/24 08:28 Dose: 1,000 mg Documented By: NASIM Mirabegron (Mirabegron 25 Mg Tab.Er.24h) 25 mg PO DAILY [facility] Last Admin: 08/23/24 08:28 Dose: 25 mg Documented By: NASIM Omeprazole (Omeprazole 40 Mg Capsule.Dr) 40 mg PO DAILY@0630 [facility] Last Admin: 08/23/24 06:26 Dose: 40 mg Documented By: PAULINE Ondansetron HCl (Ondansetron Hcl 4 Mg/2 Ml Vial) 4 mg IVPUSH Q8H PRN PRN Reason: Nausea and Vomiting Prednisone (Prednisone 20 Mg Tablet) 40 mg PO DAILY [facility] Last Admin: 08/23/24 08:28 Dose: 40 mg Documented By: NASIM Sodium Chloride (0.9 % Sodium Chloride Flush 3 Ml Syringe) 3 ml IVFLUSH QSHIFT [facility] Last Admin: 08/23/24 08:28 Dose: 3 ml Documented By: NASIM Labs 08/20/24 05:31 08/22/24 06:38 Assessment and Plan (1) Hypokalemia: Status: Acute (2) Partial small bowel obstruction: Status: Acute (3) Crohn's disease: Status: Acute Plan d7 for 63yo F with Crohn's disease presenting with 24h of worsening abd pain, nausea, and vomiting; found to have pSBO pSBO - tolerating liquid diet; advance cautiously to solids, Gen Surg following Crohn's disease flare - transitioned from IV methylprednisolone 60mg q6h to PO prednisone 40 mg/d 08/20, taper 10mg weekly; continue mesalamine; GI consulted and will need outpt f/u hypoK - repleted hypothyroidism - continue LT4 GERD - continue PPI VTE prophylaxis - enoxaparin dispo - possibly home tomorrow In my clinical judgment, the patient requires continued inpatient hospitalization for the following reasons: advancing diet Total time managing care of this patient today: 35 minutes. Quality Stroke Does the patient have a stroke diagnosis?: No VTE Prior VTE?: No VTE Risk Level:: Medical - moderate - high VTE Device Contraindication: Treatment Not Indicated VTE Drug Contraindication: N/A - Med Ordered
--- NOTE | 2024-08-23 13:21 | P.PNGS_ITS ---
Subjective Subjective Date of Service: 08/23/24 Interval history: States she continues to do well Passing flatus Now having regular diet for lunch Denies pain Physical Exam 2 Vital Signs: Vital Signs: Last Vital Signs Temp 98.7 F 08/23/24 08:07 Pulse 60 08/23/24 08:07 Resp 12 08/23/24 08:07 BP 111/59 L 08/23/24 08:07 Pulse Ox 97 08/23/24 08:07 O2 Del Method Room Air 08/23/24 08:07 BMI result Body Mass Index 35.3 Const: General: comfortable and no acute distress Resp: Effort & Inspection: normal respiratory effort Cardio: Rate: regular rate GI: Palpation (GI): Soft to palpation, not firm and nontender Objective Data Active Medications Acetaminophen (Acetaminophen 325 Mg Tablet) 650 mg PO Q6H PRN PRN Reason: Pain, Mild (Pain Scale 1-3), fever or headache Last Admin: 08/20/24 12:17 Dose: 650 mg Documented By: RAH Calcium Carbonate (Calcium Carbonate 750 Mg Tab.Chew) 750 mg PO Q4H PRN PRN Reason: Heartburn Calcium Carbonate/Cholecalciferol (Calcium + Vitamin D 250 Mg Tablet) 250 mg PO BID [facility] Last Admin: 08/23/24 08:29 Dose: 250 mg Documented By: NASIM Dicyclomine HCl (Dicyclomine Hcl 10 Mg Capsule) 10 mg PO TIDAC PRN PRN Reason: abdominal pain Last Admin: 08/20/24 09:47 Dose: 10 mg Documented By: RAH Enoxaparin Sodium (Enoxaparin Sodium 40 Mg/0.4 Ml Syringe) 40 mg SUBCUT Q24H [facility] Last Admin: 08/22/24 13:53 Dose: 40 mg Documented By: LÁZARO Ferrous Sulfate (Ferrous Sulfate 324 Mg Tablet.Dr) 324 mg PO DAILY [facility] Last Admin: 08/23/24 08:29 Dose: 324 mg Documented By: NASIM Hydromorphone HCl (Hydromorphone Hcl 0.5 Mg/0.5 Ml Syringe) 0.25 mg IVPUSH Q4H PRN; Protocol PRN Reason: Pain, Severe (Pain Scale 7-10) Last Admin: 08/23/24 08:28 Dose: 0.25 mg Documented By: NASIM Levothyroxine Sodium (Levothyroxine Sodium 88 Mcg Tablet) 88 mcg PO DAILY@0600 [facility] Last Admin: 08/23/24 06:26 Dose: 88 mcg Documented By: PAULINE Loratadine (Loratadine 10 Mg Tablet) 10 mg PO DAILY PRN PRN Reason: allergy symptoms Magnesium Hydroxide (Milk Of Magnesia 30 Ml Oral.Susp) 30 ml PO DAILY PRN PRN Reason: Constipation Melatonin (Melatonin 3 Mg Tablet) 6 mg PO BEDTIME PRN PRN Reason: Insomnia Mesalamine (Mesalamine 250 Mg Capsule.Er) 1,000 mg PO QID [facility] Last Admin: 08/23/24 08:28 Dose: 1,000 mg Documented By: NASIM Mirabegron (Mirabegron 25 Mg Tab.Er.24h) 25 mg PO DAILY [facility] Last Admin: 08/23/24 08:28 Dose: 25 mg Documented By: NASIM Omeprazole (Omeprazole 40 Mg Capsule.Dr) 40 mg PO DAILY@0630 [facility] Last Admin: 08/23/24 06:26 Dose: 40 mg Documented By: PAULINE Ondansetron HCl (Ondansetron Hcl 4 Mg/2 Ml Vial) 4 mg IVPUSH Q8H PRN PRN Reason: Nausea and Vomiting Prednisone (Prednisone 20 Mg Tablet) 40 mg PO DAILY [facility] Last Admin: 08/23/24 08:28 Dose: 40 mg Documented By: NASIM Sodium Chloride (0.9 % Sodium Chloride Flush 3 Ml Syringe) 3 ml IVFLUSH QSHIFT [facility] Last Admin: 08/23/24 08:28 Dose: 3 ml Documented By: NASIM Labs 08/20/24 05:31 08/22/24 06:38 Procedures Date of Service Date of Service: 08/23/24 Progress Note: A&P Assessment and plan (1) Partial small bowel obstruction: Status: Acute Assessment and Plan: Symptoms seems resolved Diet as tolerated Ambulate Abdomen is soft and benign Does have recurrent episodes Rest of care as per hospitalist service Time Spent With Patient Time: Total time managing care of this patient today ____ minutes. Quality Stroke Does the patient have a stroke diagnosis?: No VTE Prior VTE?: No VTE Risk Level:: Medical - moderate - high VTE Device Contraindication: Treatment Not Indicated VTE Drug Contraindication: N/A - Med Ordered
[2024-08-23] MEDS: Enoxaparin Sodium 40 MG/0.4 ML SYRINGE SUBCUT (13:24)
--- NOTE | 2024-08-23 14:47 | P.PNGI_ITS ---
Subjective Subjective Date of Service: 08/23/24 Interval History: doing better passing gas managing PO diet no fever Critical Care Time (minutes): 0 Physical Exam 2 Vital Signs: Vital Signs: Last Vital Signs Temp 98.7 F 08/23/24 08:07 Pulse 60 08/23/24 08:07 Resp 12 08/23/24 08:07 BP 111/59 L 08/23/24 08:07 Pulse Ox 97 08/23/24 08:07 O2 Del Method Room Air 08/23/24 08:07 BMI result Body Mass Index 35.3 EXAM: GENERAL: The patient is comfortable, reading a book VITAL SIGNS:see workflow HEENT: Nonicteric sclerae, PERRLA, EOMI. Oropharynx clear. Moist mucous membranes. Conjunctivae appear well perfused. No thyroid mass. CHEST: Chest wall is nontender. HEART: Regular rate and rhythm without murmurs. LUNGS: Clear to auscultation bilaterally. ABDOMEN: Soft, positive bowel sounds, nontender, no organomegaly.no flank tenderness SKIN: No rash, no excessive bruising, petechiae, or purpura. NEUROLOGIC: Cranial nerves II-XII intact without motor/sensory deficit. Psych: normal affect Objective Data Labs 08/20/24 05:31 08/22/24 06:38 Microbiology Microbiology Results: Microbiology 08/17/24 Unknown Urine clean catch - Clean Catch Midstream Urine Culture - Final Procedures Date of Service Date of Service: 08/23/24 Progress Note: A&P Assessment and plan (1) Partial small bowel obstruction: Status: Acute Plan 1/ Crohns disease with partial SBO, possibly from flare or stricture at ileocolonic anastomosis PLAN: 1/ complete pred taper 2/ f/u with dr Navas to discuss entyvio and maybe repeat sigm and dilation 3/ low fiber diet Time Spent With Patient Time: Total time managing care of this patient today ____ minutes. Quality Stroke Does the patient have a stroke diagnosis?: No VTE Prior VTE?: No VTE Risk Level:: Medical - moderate - high VTE Device Contraindication: Treatment Not Indicated VTE Drug Contraindication: N/A - Med Ordered
[2024-08-23 16:17] VITALS: BP 123/60; PULSE 56; RESP 18; TEMP 36.4; O2SAT 96
[2024-08-23] MEDS: polyethylene glycoL 3350 17 GM POWD.PACK PO (17:18)
[2024-08-23 19:33] VITALS: BP 135/65; PULSE 58; RESP 17; TEMP 36.6; O2SAT 94
[2024-08-24] MEDS: Levothyroxine Sodium 88 MCG TABLET PO (05:33)
[2024-08-24] MEDS: Omeprazole 40 MG CAPSULE.DR PO (05:33)
[2024-08-24] MEDS: HYDROmorphone HCl 0.5 MG/0.5 ML SYRINGE 0.25 MG IVPUSH ×4 (05:39→23:31)
[2024-08-24 06:00] VITALS: BP 128/64; PULSE 57; RESP 18; TEMP 36.5; O2SAT 97
[2024-08-24] MEDS: Mesalamine 250 MG CAPSULE.ER 1000 MG PO ×4 (09:13→20:50)
[2024-08-24] MEDS: Mirabegron 25 MG TAB.ER.24H PO (09:13)
[2024-08-24] MEDS: predniSONE 20 MG TABLET 40 MG PO (09:13)
[2024-08-24] MEDS: Calcium + Vitamin D 250 MG TABLET PO ×2 (09:13→20:50)
[2024-08-24] MEDS: Ferrous Sulfate 324 MG TABLET.DR PO (09:13)
[2024-08-24] MEDS: 0.9 % Sodium Chloride Flush 3 ML SYRINGE IVFLUSH ×2 (09:14→19:38)
[2024-08-24] MEDS: Acetaminophen 325 MG TABLET 650 MG PO (10:42)
[2024-08-24] MEDS: oxyCODONE HCl Immed Release 5 MG TABLET PO ×3 (10:42→22:46)
[2024-08-24] MEDS: Enoxaparin Sodium 40 MG/0.4 ML SYRINGE SUBCUT (13:02)
--- NOTE | 2024-08-24 13:44 | P.PNIM_ITS ---
Subjective Subjective Date of Service: 08/24/24 Interval History: c/o abd pain diarrhea without blood Review of Systems Review of Systems: Yes all other systems are reviewed and are negative Physical Exam 2 Vital Signs: Vital Signs: Last Vital Signs Temp 97.7 F 08/24/24 06:00 Pulse 57 08/24/24 06:00 Resp 18 08/24/24 06:00 BP 128/64 08/24/24 06:00 Pulse Ox 97 08/24/24 06:00 O2 Del Method Room Air 08/24/24 06:00 BMI result Body Mass Index 35.3 Gen: in no acute distress HEENT: sclera anicteric, moist mucus membranes Neck: supple Lungs: clear to auscultation bilaterally Heart: regular rate and rhythm, no murmurs Abd: soft, diffusely tender without rebound/guarding, non-distended Ext: no edema Skin: warm/well-perfused Neuro: alert and oriented x3, no focal findings Psych: appropriate affect Objective Data Active Medications Acetaminophen (Acetaminophen 325 Mg Tablet) 650 mg PO Q6H PRN PRN Reason: Pain, Mild (Pain Scale 1-3), fever or headache Last Admin: 08/24/24 10:42 Dose: 650 mg Documented By: JULIANNE Calcium Carbonate (Calcium Carbonate 750 Mg Tab.Chew) 750 mg PO Q4H PRN PRN Reason: Heartburn Calcium Carbonate/Cholecalciferol (Calcium + Vitamin D 250 Mg Tablet) 250 mg PO BID [facility] Last Admin: 08/24/24 09:13 Dose: 250 mg Documented By: JULIANNE Dicyclomine HCl (Dicyclomine Hcl 10 Mg Capsule) 10 mg PO TIDAC PRN PRN Reason: abdominal pain Last Admin: 08/20/24 09:47 Dose: 10 mg Documented By: RAH Enoxaparin Sodium (Enoxaparin Sodium 40 Mg/0.4 Ml Syringe) 40 mg SUBCUT Q24H [facility] Last Admin: 08/24/24 13:02 Dose: 40 mg Documented By: JULIANNE Ferrous Sulfate (Ferrous Sulfate 324 Mg Tablet.Dr) 324 mg PO DAILY [facility] Last Admin: 08/24/24 09:13 Dose: 324 mg Documented By: JULIANNE Hydromorphone HCl (Hydromorphone Hcl 0.5 Mg/0.5 Ml Syringe) 0.25 mg IVPUSH Q4H PRN; Protocol PRN Reason: Pain, Severe (Pain Scale 7-10) Last Admin: 08/24/24 05:39 Dose: 0.25 mg Documented By: RALPH Levothyroxine Sodium (Levothyroxine Sodium 88 Mcg Tablet) 88 mcg PO DAILY@0600 [facility] Last Admin: 08/24/24 05:33 Dose: 88 mcg Documented By: RALPH Loratadine (Loratadine 10 Mg Tablet) 10 mg PO DAILY PRN PRN Reason: allergy symptoms Magnesium Hydroxide (Milk Of Magnesia 30 Ml Oral.Susp) 30 ml PO DAILY PRN PRN Reason: Constipation Melatonin (Melatonin 3 Mg Tablet) 6 mg PO BEDTIME PRN PRN Reason: Insomnia Mesalamine (Mesalamine 250 Mg Capsule.Er) 1,000 mg PO QID [facility] Last Admin: 08/24/24 13:02 Dose: 1,000 mg Documented By: JULIANNE Mirabegron (Mirabegron 25 Mg Tab.Er.24h) 25 mg PO DAILY [facility] Last Admin: 08/24/24 09:13 Dose: 25 mg Documented By: JULIANNE Omeprazole (Omeprazole 40 Mg Capsule.Dr) 40 mg PO DAILY@0630 [facility] Last Admin: 08/24/24 05:33 Dose: 40 mg Documented By: RALPH Ondansetron HCl (Ondansetron Hcl 4 Mg/2 Ml Vial) 4 mg IVPUSH Q8H PRN PRN Reason: Nausea and Vomiting Oxycodone HCl (Oxycodone Hcl Immed Release 5 Mg Tablet) 5 mg PO Q4H PRN PRN Reason: Pain, Moderate(Pain Scale 4-6) Last Admin: 08/24/24 10:42 Dose: 5 mg Documented By: JULIANNE Prednisone (Prednisone 20 Mg Tablet) 40 mg PO DAILY [facility] Last Admin: 08/24/24 09:13 Dose: 40 mg Documented By: JULIANNE Sodium Chloride (0.9 % Sodium Chloride Flush 3 Ml Syringe) [facility] Last Admin: 08/24/24 09:14 Dose: 3 ml Documented By: JULIANNE Labs 08/20/24 05:31 08/22/24 06:38 Assessment and Plan (1) Hypokalemia: Status: Acute (2) Partial small bowel obstruction: Status: Acute (3) Crohn's disease: Status: Acute Plan d8 for 63yo F with Crohn's disease presenting with 24h of worsening abd pain, nausea, and vomiting; found to have pSBO pSBO - advanced to solids yesterday but now developing worsening pain though passing diarrhea; go back to clear liquid diet Crohn's disease flare - transitioned from IV methylprednisolone 60mg q6h to PO prednisone 40 mg/d 08/20, taper 10mg weekly; continue mesalamine; GI consulted and will need outpt f/u - will check C diff PCR hypoK - repleted hypothyroidism - continue LT4 GERD - continue PPI VTE prophylaxis - enoxaparin dispo - home once abd pain improved In my clinical judgment, the patient requires continued inpatient hospitalization for the following reasons: advancing diet Total time managing care of this patient today: 35 minutes. Quality Stroke Does the patient have a stroke diagnosis?: No VTE Prior VTE?: No VTE Risk Level:: Medical - moderate - high VTE Device Contraindication: Treatment Not Indicated VTE Drug Contraindication: N/A - Med Ordered
[2024-08-24 14:00] VITALS: PULSE 61; RESP 18; TEMP 36.4; O2SAT 96
[2024-08-24 14:26] LABS: CDiff Gene PCR NEGATIVE (Negative)
[2024-08-24 15:39] VITALS: BP 118/72; PULSE 55; RESP 18; TEMP 36.4; O2SAT 96
[2024-08-24 19:54] VITALS: BP 124/59; PULSE 60; RESP 18; TEMP 36.6; O2SAT 95
[2024-08-25 05:21] VITALS: BP 120/63; PULSE 52; RESP 16; TEMP 36.2; O2SAT 93
[2024-08-25] MEDS: Omeprazole 40 MG CAPSULE.DR PO (06:14)
[2024-08-25] MEDS: Levothyroxine Sodium 88 MCG TABLET PO (06:14)
[2024-08-25] MEDS: HYDROmorphone HCl 0.5 MG/0.5 ML SYRINGE 0.25 MG IVPUSH ×2 (06:23→11:25)
[2024-08-25 08:26] VITALS: BP 106/57; PULSE 50; RESP 16; TEMP 36.3; O2SAT 96
[2024-08-25] MEDS: predniSONE 20 MG TABLET 40 MG PO (08:49)
[2024-08-25] MEDS: Mirabegron 25 MG TAB.ER.24H PO (08:49)
[2024-08-25] MEDS: Ferrous Sulfate 324 MG TABLET.DR PO (08:49)
[2024-08-25] MEDS: Calcium + Vitamin D 250 MG TABLET PO ×2 (08:49→21:11)
[2024-08-25] MEDS: oxyCODONE HCl Immed Release 5 MG TABLET PO (08:49)
[2024-08-25] MEDS: Mesalamine 250 MG CAPSULE.ER 1000 MG PO ×4 (08:49→21:10)
[2024-08-25] MEDS: 0.9 % Sodium Chloride Flush 3 ML SYRINGE IVFLUSH (08:53)
[2024-08-25 10:24] LABS: Hematocrit 44.1 % (37.0-47.0); Hemoglobin 14.3 g/dl (12.0-16.0); Mean Corpuscular HGB Conc 32.4 g/dl (31.0-35.0); Mean Corpuscular Hemoglobin 27.7 pg (27.0-33.0); Mean Corpuscular Volume 85.3 fL (80.0-98.0); Mean Platelet Volume 11.5 fL (9.4-12.3); Platelet Count 171 X10*3/uL (160-400); Red Blood Count 5.17 X10*6/uL (4.20-5.50); Red Cell Distribution Width 17.4 % (11.0-16.0); White Blood Count 10.8 X10*3/uL (4.8-10.8)
[2024-08-25 10:29] LABS: Alanine Aminotransferase 17 U/L (0-31); Albumin Level 3.4 g/dL (3.5-5.0); Alkaline Phosphatase 49 U/L (39-117); Anion Gap 17 (12-20); Aspartate Amino Transferase 24 U/L (5-31); Bilirubin Total 0.4 mg/dL (0.0-1.0); Blood Urea Nitrogen 21 mg/dL (9-16); C Reactive Protein 0.67 mg/dL (< or = 0.50); Calcium 8.9 mg/dL (8.4-10.2); Carbon Dioxide 19 mmol/L (22-29); Chloride 107 mmol/L (96-108); Creatinine Clr Calc Pharmacy 66.2; Estimated Glomerular Filt Rate > 60; Glucose Random 122 mg/dL (60-115); Sodium 139 mmol/L (135-145); Total Protein 7.1 g/dL (6.5-8.0)
--- NOTE | 2024-08-25 10:29 | P.PNIM_ITS ---
Subjective Subjective Date of Service: 08/25/24 Interval History: c/o lower abd pain, not feeling any better no N/V ongoing diarrhea Review of Systems Review of Systems: Yes all other systems are reviewed and are negative Physical Exam 2 Vital Signs: Vital Signs: Last Vital Signs Temp 97.3 F 08/25/24 08:26 Pulse 50 08/25/24 08:26 Resp 16 08/25/24 08:26 BP 106/57 L 08/25/24 08:26 Pulse Ox 96 08/25/24 08:26 O2 Del Method Room Air 08/25/24 08:26 BMI result Body Mass Index 35.3 Gen: in no acute distress HEENT: sclera anicteric, moist mucus membranes Neck: supple Lungs: clear to auscultation bilaterally Heart: regular rate and rhythm, no murmurs Abd: soft, diffusely tender without rebound/guarding, non-distended Ext: no edema Skin: warm/well-perfused Neuro: alert and oriented x3, no focal findings Psych: appropriate affect Objective Data Active Medications Acetaminophen (Acetaminophen 325 Mg Tablet) 650 mg PO Q6H PRN PRN Reason: Pain, Mild (Pain Scale 1-3), fever or headache Last Admin: 08/24/24 10:42 Dose: 650 mg Documented By: JULIANNE Calcium Carbonate (Calcium Carbonate 750 Mg Tab.Chew) 750 mg PO Q4H PRN PRN Reason: Heartburn Calcium Carbonate/Cholecalciferol (Calcium + Vitamin D 250 Mg Tablet) 250 mg PO BID [facility] BEDS AT [facility] Last Admin: 08/25/24 08:49 Dose: 250 mg Documented By: JULIANNE Dicyclomine HCl (Dicyclomine Hcl 10 Mg Capsule) 10 mg PO TIDAC PRN PRN Reason: abdominal pain Last Admin: 08/20/24 09:47 Dose: 10 mg Documented By: RAH Enoxaparin Sodium (Enoxaparin Sodium 40 Mg/0.4 Ml Syringe) 40 mg SUBCUT Q24H [facility]S [facility] 234 BEDS AT [facility] Last Admin: 08/24/24 13:02 Dose: 40 mg Documented By: JULIANNE Ferrous Sulfate (Ferrous Sulfate 324 Mg Tablet.Dr) 324 mg PO DAILY [facility]S [facility] 234 BEDS AT [facility] Last Admin: 08/25/24 08:49 Dose: 324 mg Documented By: JULIANNE Hydromorphone HCl (Hydromorphone Hcl 0.5 Mg/0.5 Ml Syringe) 0.25 mg IVPUSH Q4H PRN; Protocol PRN Reason: Pain, Severe (Pain Scale 7-10) Last Admin: 08/25/24 06:23 Dose: 0.25 mg Documented By: RALPH Levothyroxine Sodium (Levothyroxine Sodium 88 Mcg Tablet) 88 mcg PO DAILY@0600 [facility]S [facility] 234 BEDS AT [facility] Last Admin: 08/25/24 06:14 Dose: 88 mcg Documented By: RALPH Loratadine (Loratadine 10 Mg Tablet) 10 mg PO DAILY PRN PRN Reason: allergy symptoms Magnesium Hydroxide (Milk Of Magnesia 30 Ml Oral.Susp) 30 ml PO DAILY PRN PRN Reason: Constipation Melatonin (Melatonin 3 Mg Tablet) 6 mg PO BEDTIME PRN PRN Reason: Insomnia Mesalamine (Mesalamine 250 Mg Capsule.Er) 1,000 mg PO QID [facility]S [facility] 234 BEDS [facility] Last Admin: 08/25/24 08:49 Dose: 1,000 mg Documented By: JULIANNE Mirabegron (Mirabegron 25 Mg Tab.Er.24h) 25 mg PO DAILY [facility]S [facility]CLUDE 234 BEDS AT [facility] Last Admin: 08/25/24 08:49 Dose: 25 mg Documented By: JULIANNE Omeprazole (Omeprazole 40 Mg Capsule.Dr) 40 mg PO DAILY@0630 [facility] 234 BEDS AT [facility] Last Admin: 08/25/24 06:14 Dose: 40 mg Documented By: RALPH Ondansetron HCl (Ondansetron Hcl 4 Mg/2 Ml Vial) 4 mg IVPUSH Q8H PRN PRN Reason: Nausea and Vomiting Oxycodone HCl (Oxycodone Hcl Immed Release 5 Mg Tablet) 5 mg PO Q4H PRN PRN Reason: Pain, Moderate(Pain Scale 4-6) Last Admin: 08/25/24 08:49 Dose: 5 mg Documented By: JULIANNE Prednisone (Prednisone 20 Mg Tablet) 40 mg PO DAILY [facility] 234 BEDS AT [facility] Last Admin: 08/25/24 08:49 Dose: 40 mg Documented By: JULIANNE Sodium Chloride (0.9 % Sodium Chloride Flush 3 Ml Syringe) 3 ml IVFLUSH QSHIFT [facility]S [facility]CLUDE 234 BEDS AT [facility] Last Admin: 08/25/24 08:53 Dose: 3 ml Documented By: JULIANNE Labs 08/20/24 05:31 08/22/24 06:38 Labs: Laboratory Results - last 24 hr 08/24/24 12:40 C. difficile Tox B Gene NEGATIVE Assessment and Plan (1) Hypokalemia: Status: Acute (2) Partial small bowel obstruction: Status: Acute (3) Crohn's disease: Status: Acute Plan d9 for 63yo F with Crohn's disease presenting with 24h of worsening abd pain, nausea, and vomiting; found to have pSBO pSBO - passing diarrhea + gas; on clear liquids Crohn's disease flare - transitioned from IV methylprednisolone 60mg q6h to PO prednisone 40 mg/d 08/20, taper 10mg weekly; continue mesalamine; GI consulted and will need outpt f/u - persistent pain + diarrhea negative; Cdiff PCR negative; will check stool GI panel and CT A/P; give IV LR hypoK - repleted hypothyroidism - continue LT4 GERD - continue PPI VTE prophylaxis - enoxaparin dispo - home once abd pain improved In my clinical judgment, the patient requires continued inpatient hospitalization for the following reasons: abd pain Total time managing care of this patient today: 45 minutes. Quality Stroke Does the patient have a stroke diagnosis?: No VTE Prior VTE?: No VTE Risk Level:: Medical - moderate - high VTE Device Contraindication: Treatment Not Indicated VTE Drug Contraindication: N/A - Med Ordered
[2024-08-25] MEDS: Lactated Ringers 1,000 ML 100 ML IVCONT ×2 (11:25→22:38)
[2024-08-25] MEDS: Diatrizoate Meglumine, Sodium 30 ML SOLUTION PO (11:37)
[2024-08-25] MEDS: iohexoL 350 MG/ML 75 ML INFUS..BTL 85 ML IV (12:45)
[2024-08-25] MEDS: Enoxaparin Sodium 40 MG/0.4 ML SYRINGE SUBCUT (13:45)
[2024-08-25] MEDS: HYDROmorphone HCl 0.5 MG/0.5 ML SYRINGE IVPUSH ×2 (15:25→19:29)
[2024-08-25 15:37] VITALS: BP 110/52; PULSE 57; RESP 18; TEMP 36.2; O2SAT 96
[2024-08-25 19:15] VITALS: BP 112/58; PULSE 56; RESP 18; TEMP 36.4; O2SAT 95
[2024-08-26] MEDS: HYDROmorphone HCl 0.5 MG/0.5 ML SYRINGE IVPUSH ×4 (01:10→17:24)
[2024-08-26 04:03] VITALS: BP 122/59; PULSE 58; RESP 16; TEMP 36.7; O2SAT 97
[2024-08-26] MEDS: Levothyroxine Sodium 88 MCG TABLET PO (05:46)
[2024-08-26] MEDS: Omeprazole 40 MG CAPSULE.DR PO (05:46)
[2024-08-26 06:26] LABS: Anion Gap 12 (12-20); Blood Urea Nitrogen 20 mg/dL (9-16); Calcium 8.5 mg/dL (8.4-10.2); Carbon Dioxide 23 mmol/L (22-29); Chloride 106 mmol/L (96-108); Creatinine Clr Calc Pharmacy 73.3; Estimated Glomerular Filt Rate > 60; Glucose Random 109 mg/dL (60-115); Sodium 137 mmol/L (135-145)
[2024-08-26 07:21] VITALS: BP 143/65; PULSE 52; RESP 16; TEMP 36.6; O2SAT 95
[2024-08-26] MEDS: Calcium + Vitamin D 250 MG TABLET PO ×2 (08:32→20:30)
[2024-08-26] MEDS: Mirabegron 25 MG TAB.ER.24H PO (08:32)
[2024-08-26] MEDS: Ferrous Sulfate 324 MG TABLET.DR PO (08:32)
[2024-08-26] MEDS: Mesalamine 250 MG CAPSULE.ER 1000 MG PO ×4 (08:32→20:31)
[2024-08-26] MEDS: predniSONE 20 MG TABLET 40 MG PO (08:32)
[2024-08-26] MEDS: Lactated Ringers 1,000 ML 100 ML IVCONT ×2 (08:34→17:29)
[2024-08-26 09:47] LABS: Adenovirus F 40/41 Not Detected (Not Detect.); Astrovirus Not Detected (Not Detect.); Campylobacter Not Detected (Not Detect.); Cryptosporidium Not Detected (Not Detect.); Cyclospora cayetanensis Not Detected (Not Detect.); E. coli EAEC Not Detected (Not Detect.); E. coli EPEC Not Detected (Not Detect.); E. coli ETEC Not Detected (Not Detect.); E. coli STEC Not Detected (Not Detect.); Entamoeba histolytica Not Detected (Not Detect.); Giardia lamblia Not Detected (Not Detect.); Norovirus GI/GII Not Detected (Not Detect.); Plesiomonas shigelloides Not Detected (Not Detect.); Rotavirus A Not Detected (Not Detect.); Salmonella Not Detected (Not Detect.); Sapovirus Not Detected (Not Detect.); Shigella sp./EIEC Not Detected (Not Detect.); Vibrio Not Detected (Not Detect.); Vibrio Cholerae Not Detected (Not Detect.); Yersinia enterocolitica Not Detected (Not Detect.)
--- NOTE | 2024-08-26 11:09 | MHC.CM.PN ---
Per MD rounds patient not medically cleared for dc. CM will continue to follow.
[2024-08-26 14:00] VITALS: BP 123/60; PULSE 57; RESP 16; TEMP 36.3; O2SAT 97
[2024-08-26] MEDS: Enoxaparin Sodium 40 MG/0.4 ML SYRINGE SUBCUT (15:12)
--- NOTE | 2024-08-26 15:28 | P.PNIM_ITS ---
Subjective Subjective Date of Service: 08/27/24 Interval History: Persistent right-sided abdominal pain, no nausea, no vomiting, last watery bowel movement 24 hours ago, tolerating diet ,ambulating in hallways. Review of Systems All other system reviewed and are negative. Physical Exam 2 Vital Signs: Vital Signs: Last Vital Signs Temp 97.3 F 08/26/24 14:00 Pulse 57 08/26/24 14:00 Resp 16 08/26/24 14:00 BP 123/60 08/26/24 14:00 Pulse Ox 97 08/26/24 14:00 O2 Del Method Room Air 08/26/24 14:00 BMI result Body Mass Index 35.3 Const: Other: Gen: in no acute distress HEENT: sclera anicteric, moist mucus membranes Neck: supple Lungs: clear to auscultation bilaterally Heart: regular rate and rhythm, no murmurs Abd: soft, right-side tender without rebound/guarding, non-distended, bowel sounds audible Ext: no edema Skin: warm/well-perfused Neuro: alert and oriented x3, no focal findings Psych: appropriate affect Objective Data Active Medications Acetaminophen (Acetaminophen 325 Mg Tablet) 650 mg PO Q6H PRN PRN Reason: Pain, Mild (Pain Scale 1-3), fever or headache Last Admin: 08/24/24 10:42 Dose: 650 mg Documented By: JULIANNE Calcium Carbonate (Calcium Carbonate 750 Mg Tab.Chew) 750 mg PO Q4H PRN PRN Reason: Heartburn Calcium Carbonate/Cholecalciferol (Calcium + Vitamin D 250 Mg Tablet) 250 mg PO BID [facility] Last Admin: 08/26/24 08:32 Dose: 250 mg Documented By: HERMANN Dicyclomine HCl (Dicyclomine Hcl 10 Mg Capsule) 10 mg PO TIDAC PRN PRN Reason: abdominal pain Last Admin: 08/20/24 09:47 Dose: 10 mg Documented By: RAH Enoxaparin Sodium (Enoxaparin Sodium 40 Mg/0.4 Ml Syringe) 40 mg SUBCUT Q24H [facility] Last Admin: 08/26/24 15:12 Dose: 40 mg Documented By: HERMANN Ferrous Sulfate (Ferrous Sulfate 324 Mg Tablet.Dr) 324 mg PO DAILY [facility] Last Admin: 08/26/24 08:32 Dose: 324 mg Documented By: HERMANN Hydromorphone HCl (Hydromorphone Hcl 0.5 Mg/0.5 Ml Syringe) 0.5 mg IVPUSH Q4H PRN; Protocol PRN Reason: Pain, Severe (Pain Scale 7-10) Last Admin: 08/26/24 12:35 Dose: 0.5 mg Documented By: HERMANN Lactated Ringer's (Lr) 1,000 mls @ 100 mls/hr IVCONT .Q10H [facility] Last Admin: 08/26/24 08:34 Dose: 100 mls/hr Documented By: HERMANN Levothyroxine Sodium (Levothyroxine Sodium 88 Mcg Tablet) 88 mcg PO DAILY@0600 [facility] Last Admin: 08/26/24 05:46 Dose: 88 mcg Documented By: RALPH Loratadine (Loratadine 10 Mg Tablet) 10 mg PO DAILY PRN PRN Reason: allergy symptoms Magnesium Hydroxide (Milk Of Magnesia 30 Ml Oral.Susp) 30 ml PO DAILY PRN PRN Reason: Constipation Melatonin (Melatonin 3 Mg Tablet) 6 mg PO BEDTIME PRN PRN Reason: Insomnia Mesalamine (Mesalamine 250 Mg Capsule.Er) 1,000 mg PO QID [facility] Last Admin: 08/26/24 12:34 Dose: 1,000 mg Documented By: HERMANN Mirabegron (Mirabegron 25 Mg Tab.Er.24h) 25 mg PO DAILY [facility] Last Admin: 08/26/24 08:32 Dose: 25 mg Documented By: HERMANN Omeprazole (Omeprazole 40 Mg Capsule.Dr) 40 mg PO DAILY@0630 [facility] Last Admin: 08/26/24 05:46 Dose: 40 mg Documented By: RALPH Ondansetron HCl (Ondansetron Hcl 4 Mg/2 Ml Vial) 4 mg IVPUSH Q8H PRN PRN Reason: Nausea and Vomiting Oxycodone HCl (Oxycodone Hcl Immed Release 5 Mg Tablet) 5 mg PO Q4H PRN PRN Reason: Pain, Moderate(Pain Scale 4-6) Last Admin: 08/25/24 08:49 Dose: 5 mg Documented By: JULIANNE Prednisone (Prednisone 20 Mg Tablet) 40 mg PO DAILY [facility] Last Admin: 08/26/24 08:32 Dose: 40 mg Documented By: HERMANN Sodium Chloride (0.9 % Sodium Chloride Flush 3 Ml Syringe) 3 ml IVFLUSH QSHIFT [facility] Last Admin: 08/26/24 15:14 Dose: Not Given Documented By: HERMANN Non-Admin Reason: IV Running Labs 08/27/24 06:14 08/27/24 06:14 Labs: Laboratory Results - last 24 hr 08/25/24 08/26/24 20:53 05:51 Anion Gap 12 Estim Creat Clear Calc 73.3 Estimated GFR > 60 Random Glucose 109 Calcium 8.5 Stl C. cayetanensis PCR Not Detected Stool Rotavirus A PCR Not Detected Stl Adenov F 40/41 PCR Not Detected Stool Astrovirus (PCR) Not Detected Stool Campylobacter PCR Not Detected Stool Cryptosporidium PCR Not Detected Stl Sh Tox Pr E STEC PCR Not Detected Stool E coli O157 PCR Not applicable Stl Enterotoxigenic E PCR Not Detected Stool EPEC (PCR) Not Detected Stool EAEC (PCR) Not Detected Stl E. histolytica PCR Not Detected Stool Giardia Lamblia PCR Not Detected Stl P. shigelloides PCR Not Detected Stool Salmonella PCR Not Detected Stool Sapovirus (PCR) Not Detected Stl Shigella/EIEC PCR Not Detected St Y.enterocolitica PCR Not Detected Stool Vibrio (PCR) Not Detected Stl Vibrio cholerae PCR Not Detected Stl Norovirus GI/GII PCR Not Detected Assessment and Plan (1) Hypokalemia: Status: Acute (2) Partial small bowel obstruction: Status: Acute (3) Crohn's disease: Status: Acute (4) Abdominal pain: Status: Acute Plan 63yo F with Crohn's disease presenting with 24h of worsening abd pain, nausea, and vomiting; found to have pSBO pSBO - persistent abdominal pain, tolerating diet ,passing watery diarrhea + gas; CT abdomen and pelvis showed mildly dilated and fluid-filled small loops with air- fluid levels, no discrete transition point air and stool within the colon findings indicative of partial distal small-bowel obstruction versus ileus, no intra-abdominal mass or lymphadenopathy, no ascites Will place back on clear liquid diet/ivf. 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 Navas regarding persistent abdominal pain - Cdiff PCR negative; CT A/P as above will downgrade to clear liquid diet hypoK - repleted, follow BMP hypothyroidism - continue LT4 GERD - continue PPI VTE prophylaxis - enoxaparin dispo - home when medically stable In my clinical judgment, the patient requires continued inpatient hospitalization for the following reasons: Persistent abd pain/ileus Quality Stroke Does the patient have a stroke diagnosis?: No VTE Prior VTE?: No VTE Risk Level:: Medical - moderate - high VTE Device Contraindication: Treatment Not Indicated VTE Drug Contraindication: N/A - Med Ordered
--- NOTE | 2024-08-26 15:48 | PM.GIPN ---
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 Pt denied rectal bleeding, melena and is not taking nsaid Pt was treated with IV methylprednisolone 60mg q6h and transitioned to PO Prednisone 40 mg/d 08/20, taper 10mg weekly. GI re-consulted due to persistent pain + diarrhea negative; Cdiff PCR negative; Pt reports Abd pain has improved to 6-7/10, feels she is backed up though having intermittent diarrhea Pt is on pentasa for Crohn's disease. She was started on humira in February, and stopped since it made her feel bloated. 08/25/[address] SCAN SHOWED: 1. Mildly dilated and fluid-filled small bowel loops with air-fluid levels. No discrete transition point. Air and stool within the colon. Findings could indicate a partial distal small bowel obstruction versus ileus. 2. No intra-abdominal mass, lymphadenopathy, or ascites. 3. Low-lying, malrotated right kidney. No renal or ureteral stone. No hydronephrosis or hydroureter. Critical Care Time (minutes): 15 Physical Exam Vital Signs: Vital Signs: Last Vital Signs Temp 97.3 F 08/26/24 14:00 Pulse 57 08/26/24 14:00 Resp 16 08/26/24 14:00 BP 123/60 08/26/24 14:00 Pulse Ox 97 08/26/24 14:00 O2 Del Method Room Air 08/26/24 14:00 BMI result Body Mass Index 35.3 Const: Other: Gen: in no acute distress HEENT: sclera anicteric, moist mucus membranes Neck: supple Lungs: clear to auscultation bilaterally Heart: regular rate and rhythm, no murmurs Abd: soft, right-side tender without rebound/guarding, non-distended, bowel sounds audible Ext: no edema Skin: warm/well-perfused Neuro: alert and oriented x3, no focal findings Psych: appropriate affect Objective Data Labs 08/25/24 09:30 08/26/24 05:51 Labs: Laboratory Results - last 24 hr 08/25/24 08/26/24 20:53 05:51 Sodium 137 Potassium 4.0 Chloride 106 Carbon Dioxide 23 Anion Gap 12 BUN 20 H Creatinine 0.85 Estim Creat Clear Calc 73.3 Estimated GFR > 60 Random Glucose 109 Calcium 8.5 Stl C. cayetanensis PCR Not Detected Stool Rotavirus A PCR Not Detected Stl Adenov F 40/41 PCR Not Detected Stool Astrovirus (PCR) Not Detected Stool Campylobacter PCR Not Detected Stool Cryptosporidium PCR Not Detected Stl Sh Tox Pr E STEC PCR Not Detected Stool E coli O157 PCR Not applicable Stl Enterotoxigenic E PCR Not Detected Stool EPEC (PCR) Not Detected Stool EAEC (PCR) Not Detected Stl E. histolytica PCR Not Detected Stool Giardia Lamblia PCR Not Detected Stl P. shigelloides PCR Not Detected Stool Salmonella PCR Not Detected Stool Sapovirus (PCR) Not Detected Stl Shigella/EIEC PCR Not Detected St Y.enterocolitica PCR Not Detected Stool Vibrio (PCR) Not Detected Stl Vibrio cholerae PCR Not Detected Stl Norovirus GI/GII PCR Not Detected Microbiology Microbiology Results: Microbiology 08/17/24 Unknown Urine clean catch - Clean Catch Midstream Urine Culture - Final Procedures Date of Service Date of Service: 08/26/24 Progress Note: A&P Assessment and plan (1) Crohn's disease: Status: Acute (2) Abdominal pain: Status: Acute (3) GERD (gastroesophageal reflux disease): Status: Acute Plan 63 YF admitted with abd pain and bloating due to CD flare ABD CT scan showed mildly dilated and fluid-filled small bowel loops with air-fluid levels. No discrete transition point. Air and stool within the colon - ? partial SBO versus ileus. Pt has a long history of constipation and is status post subtotal colectomy at [facility] in 2000. She is suspected to have Crohn's disease (with intermittently elevated CRP levels) and treated with mesalamine and intermittent steroids in the past. Her clinical course has been complicated by obstipation requiring multiple laxatives. Her imaging studies have shown progressive small bowel dilation since 2013. RECOMMENDATIONS: 1. Continue PO steroids and taper by 10 mg every week over 4 weeks 2. Clear liquid diet in the am with Golytely (1/2 galloon) over 6 yo 8 hrs - order placed. 3. Fecal Calprotectin - added to labs 4. I will arrange Entyvio infusion as an outpatient. Time Spent With Patient Time: Total time managing care of this patient today ____ minutes. Quality Stroke Does the patient have a stroke diagnosis?: No VTE Prior VTE?: No VTE Risk Level:: Medical - moderate - high VTE Device Contraindication: Treatment Not Indicated VTE Drug Contraindication: N/A - Med Ordered
[2024-08-26 15:51] VITALS: BP 114/58; PULSE 54; RESP 16; TEMP 36.6; O2SAT 96
[2024-08-26 19:26] VITALS: BP 130/56; PULSE 62; RESP 16; TEMP 36.8; O2SAT 96
[2024-08-26 22:00] VITALS: BP 126/54; PULSE 64; RESP 18; TEMP 36.7; O2SAT 96
[2024-08-27] MEDS: HYDROmorphone HCl 0.5 MG/0.5 ML SYRINGE IVPUSH ×4 (00:38→18:21)
[2024-08-27] MEDS: Lactated Ringers 1,000 ML 100 ML IVCONT (03:39)
[2024-08-27 05:50] VITALS: BP 143/68; PULSE 50; RESP 16; TEMP 36; O2SAT 97
[2024-08-27] MEDS: Omeprazole 40 MG CAPSULE.DR PO (06:00)
[2024-08-27] MEDS: Levothyroxine Sodium 88 MCG TABLET PO (06:00)
[2024-08-27 07:39] VITALS: BP 133/58; PULSE 52; RESP 16; TEMP 36.7; O2SAT 98
[2024-08-27 07:55] LABS: Hematocrit 37.6 % (37.0-47.0); Hemoglobin 12.4 g/dl (12.0-16.0); Mean Corpuscular Hemoglobin 28.1 pg (27.0-33.0); Mean Corpuscular Volume 85.3 fL (80.0-98.0); Mean Platelet Volume 10.5 fL (9.4-12.3); Platelet Count 269 X10*3/uL (160-400); Red Blood Count 4.41 X10*6/uL (4.20-5.50); Red Cell Distribution Width 16.9 % (11.0-16.0)
[2024-08-27 08:30] LABS: Anion Gap 14 (12-20); Blood Urea Nitrogen 16 mg/dL (9-16); Calcium 8.7 mg/dL (8.4-10.2); Carbon Dioxide 23 mmol/L (22-29); Chloride 105 mmol/L (96-108); Estimated Glomerular Filt Rate > 60; Glucose Random 81 mg/dL (60-115); Potassium 3.7 mmol/L (3.3-5.1); Sodium 138 mmol/L (135-145)
[2024-08-27] MEDS: predniSONE 20 MG TABLET 40 MG PO (08:41)
[2024-08-27] MEDS: Ferrous Sulfate 324 MG TABLET.DR PO (08:41)
[2024-08-27] MEDS: Calcium + Vitamin D 250 MG TABLET PO ×2 (08:41→20:33)
[2024-08-27] MEDS: Mesalamine 250 MG CAPSULE.ER 1000 MG PO ×4 (08:41→20:33)
[2024-08-27] MEDS: Mirabegron 25 MG TAB.ER.24H PO (08:41)
--- NOTE | 2024-08-27 11:01 | HO.PM.IMPN ---
Subjective Subjective Date of Service: 08/27/24 Interval History: Tolerating clear liquid diet, had loose watery diarrhea x2 last night, no stool, persistent abdominal pain, no fevers, no chills, ambulating in hallways no acute events overnight declined GoLYTELY due to flavor feels she will vomit. Review of Systems All other system reviewed and are negative. Physical Exam Vital Signs: Vital Signs: Last Vital Signs Temp 98.1 F 08/27/24 07:39 Pulse 52 08/27/24 07:39 Resp 16 08/27/24 07:39 BP 133/58 L 08/27/24 07:39 Pulse Ox 98 08/27/24 07:39 O2 Del Method Room Air 08/27/24 07:39 BMI result Body Mass Index 35.3 Const: Other: Gen: in no acute distress HEENT: sclera anicteric, moist mucus membranes Neck: supple Lungs: clear to auscultation bilaterally Heart: regular rate and rhythm, no murmurs Abd: soft, right-side discomfort with palpation without rebound/guarding, non-distended, bowel sounds audible Ext: no edema Skin: warm/well-perfused Neuro: alert and oriented x3, no focal findings Psych: appropriate affect Objective Data Active Medications Acetaminophen (Acetaminophen 325 Mg Tablet) 650 mg PO Q6H PRN PRN Reason: Pain, Mild (Pain Scale 1-3), fever or headache Last Admin: 08/24/24 10:42 Dose: 650 mg Documented By: JULIANNE Calcium Carbonate (Calcium Carbonate 750 Mg Tab.Chew) 750 mg PO Q4H PRN PRN Reason: Heartburn Calcium Carbonate/Cholecalciferol (Calcium + Vitamin D 250 Mg Tablet) 250 mg PO BID [facility] Last Admin: 08/27/24 08:41 Dose: 250 mg Documented By: HERMANN Dicyclomine HCl (Dicyclomine Hcl 10 Mg Capsule) 10 mg PO TIDAC PRN PRN Reason: abdominal pain Last Admin: 08/20/24 09:47 Dose: 10 mg Documented By: RAH Enoxaparin Sodium (Enoxaparin Sodium 40 Mg/0.4 Ml Syringe) 40 mg SUBCUT Q24H [facility] Last Admin: 08/26/24 15:12 Dose: 40 mg Documented By: HERMANN Ferrous Sulfate (Ferrous Sulfate 324 Mg Tablet.Dr) 324 mg PO DAILY [facility] Last Admin: 08/26/24 08:32 Dose: 324 mg Documented By: HERMANN Hydromorphone HCl (Hydromorphone Hcl 0.5 Mg/0.5 Ml Syringe) 0.5 mg IVPUSH Q4H PRN; Protocol PRN Reason: Pain, Severe (Pain Scale 7-10) Last Admin: 08/27/24 05:59 Dose: 0.5 mg Documented By: BERENICE Levothyroxine Sodium (Levothyroxine Sodium 88 Mcg Tablet) 88 mcg PO DAILY@0600 [facility] Last Admin: 08/27/24 06:00 Dose: 88 mcg Documented By: BERENICE Loratadine (Loratadine 10 Mg Tablet) 10 mg PO DAILY PRN PRN Reason: allergy symptoms Magnesium Hydroxide (Milk Of Magnesia 30 Ml Oral.Susp) 30 ml PO DAILY PRN PRN Reason: Constipation Melatonin (Melatonin 3 Mg Tablet) 6 mg PO BEDTIME PRN PRN Reason: Insomnia Mesalamine (Mesalamine 250 Mg Capsule.Er) 1,000 mg PO QID [facility] Last Admin: 08/27/24 08:41 Dose: 1,000 mg Documented By: HERMANN Mirabegron (Mirabegron 25 Mg Tab.Er.24h) 25 mg PO DAILY [facility] Last Admin: 08/27/24 08:41 Dose: 25 mg Documented By: HERMANN Omeprazole (Omeprazole 40 Mg Capsule.) 40 mg PO DAILY@0630 [facility] Last Admin: 08/27/24 06:00 Dose: 40 mg Documented By: BERENICE Ondansetron HCl (Ondansetron Hcl 4 Mg/2 Ml Vial) 4 mg IVPUSH Q8H PRN PRN Reason: Nausea and Vomiting Oxycodone HCl (Oxycodone Hcl Immed Release 5 Mg Tablet) 5 mg PO Q4H PRN PRN Reason: Pain, Moderate(Pain Scale 4-6) Last Admin: 08/25/24 08:49 Dose: 5 mg Documented By: JULIANNE Prednisone (Prednisone 20 Mg Tablet) 40 mg PO DAILY [facility] Last Admin: 08/27/24 08:41 Dose: 40 mg Documented By: HERMANN Sodium Chloride (0.9 % Sodium Chloride Flush 3 Ml Syringe) 3 ml IVFLUSH QSHIFT [facility] Last Admin: 08/27/24 08:44 Dose: Not Given Documented By: HERMANN Non-Admin Reason: IV Running Labs 08/27/24 06:14 08/27/24 06:14 Labs: Laboratory Results - last 24 hr 08/25/24 08/27/24 20:53 06:14 MCV 85.3 MCH 28.1 MCHC 33.0 RDW 16.9 H Plt Count 269 D MPV 10.5 Absolute Nucleated RBC 0.000 Nucleated RBC % (auto) 0.0 Anion Gap 14 Estim Creat Clear Calc 75.0 Estimated GFR > 60 Random Glucose 81 Calcium 8.7 Stl C. cayetanensis PCR Not Detected Stool Rotavirus A PCR Not Detected Stl Adenov F 40/41 PCR Not Detected Stool Astrovirus (PCR) Not Detected Stool Campylobacter PCR Not Detected Stool Cryptosporidium PCR Not Detected Stl Sh Tox Pr E STEC PCR Not Detected Stool E coli O157 PCR Not applicable Stl Enterotoxigenic E PCR Not Detected Stool EPEC (PCR) Not Detected Stool EAEC (PCR) Not Detected Stl E. histolytica PCR Not Detected Stool Giardia Lamblia PCR Not Detected Stl P. shigelloides PCR Not Detected Stool Salmonella PCR Not Detected Stool Sapovirus (PCR) Not Detected Stl Shigella/EIEC PCR Not Detected St Y.enterocolitica PCR Not Detected Stool Vibrio (PCR) Not Detected Stl Vibrio cholerae PCR Not Detected Stl Norovirus GI/GII PCR Not Detected Assessment and Plan (1) Hypokalemia: Status: Acute (2) Partial small bowel obstruction: Status: Acute (3) Crohn's disease: Status: Acute Plan 63yo F with Crohn's disease presenting with 24h of worsening abd pain, nausea, and vomiting; found to have pSBO pSBO - persistent abdominal pain, tolerating clear liquid diet ,passing watery diarrhea + gas; CT abdomen and pelvis showed mildly dilated and fluid-filled small loops with air-fluid levels, no discrete transition point air and stool within the colon findings indicative of partial distal small-bowel obstruction versus ileus, no intra-abdominal mass or lymphadenopathy, no ascites Continue clear liquid diet/ivf, stable electrolytes and CBC Crohn's disease flare - transitioned from IV methylprednisolone 60mg q6h to PO prednisone 40 mg/d 08/20, taper 10mg weekly x4 weeks; continue mesalamine; CT abdomen and pelvis as above, C diff PCR negative Seen by Dr. Navas she recommended GoLYTELY however patient declined due to lemon flavor that gives her nausea and vomiting Having watery diarrhea, GI recommend MiraLax, continue supportive care/analgesics hypoK - repleted, repeat potassium stable hypothyroidism - continue LT4 GERD - continue PPI VTE prophylaxis - enoxaparin dispo - home when medically stable In my clinical judgment, the patient requires continued inpatient hospitalization for the following reasons: Persistent abd pain/ileus Quality Stroke Does the patient have a stroke diagnosis?: No VTE Prior VTE?: No VTE Risk Level:: Medical - moderate - high VTE Device Contraindication: Treatment Not Indicated VTE Drug Contraindication: N/A - Med Ordered
[2024-08-27 11:21] VITALS: BP 133/58; PULSE 55; RESP 16; TEMP 36.5; O2SAT 96
[2024-08-27 14:00] VITALS: BP 140/59; PULSE 54; RESP 18; TEMP 36.1; O2SAT 97
[2024-08-27] MEDS: Lactated Ringers 1,000 ML 80 ML IVCONT (15:38)
[2024-08-27] MEDS: Enoxaparin Sodium 40 MG/0.4 ML SYRINGE SUBCUT (15:45)
[2024-08-27 19:18] VITALS: BP 100/58; PULSE 59; RESP 14; TEMP 36.3; O2SAT 94
[2024-08-27] MEDS: polyethylene glycoL 3350 17 GM POWD.PACK PO (20:35)
[2024-08-27] MEDS: 0.9 % Sodium Chloride Flush 3 ML SYRINGE IVFLUSH (23:47)
[2024-08-28] VITALS (7 sets, daily range): BP systolic 97–135; BP diastolic 46–69; PULSE 55–63; RESP 16–18; TEMP 36.3–36.8; O2SAT 96–98
[2024-08-28] MEDS: polyethylene glycoL 3350 17 GM POWD.PACK PO (00:01)
[2024-08-28] MEDS: Lactated Ringers 1,000 ML 80 ML IVCONT (04:02)
[2024-08-28] MEDS: Levothyroxine Sodium 88 MCG TABLET PO (06:28)
[2024-08-28] MEDS: Omeprazole 40 MG CAPSULE.DR PO (06:28)
[2024-08-28] MEDS: HYDROmorphone HCl 0.5 MG/0.5 ML SYRINGE IVPUSH ×5 (07:39→22:07)
[2024-08-28] MEDS: Ferrous Sulfate 324 MG TABLET.DR PO (07:42)
[2024-08-28] MEDS: Mesalamine 250 MG CAPSULE.ER 1000 MG PO ×4 (07:42→19:55)
[2024-08-28] MEDS: predniSONE 20 MG TABLET 40 MG PO (07:42)
[2024-08-28] MEDS: Mirabegron 25 MG TAB.ER.24H PO (07:42)
[2024-08-28] MEDS: Calcium + Vitamin D 250 MG TABLET PO ×2 (07:42→19:55)
[2024-08-28] MEDS: 0.9 % Sodium Chloride Flush 3 ML SYRINGE IVFLUSH ×3 (07:44→19:56)
--- NOTE | 2024-08-28 13:00 | MHC.CM.PN ---
Per MD rounds patient not medically cleared for dc. CM will continue to follow.
[2024-08-28] MEDS: Enoxaparin Sodium 40 MG/0.4 ML SYRINGE SUBCUT (13:42)
--- NOTE | 2024-08-28 14:15 | P.PNIM_ITS ---
Subjective Subjective Date of Service: 08/28/24 Interval History: Patient had a small bowel movement last night and again watery stool this morning, decreased abdominal pain has been ambulating and passing flatus tolerating clear liquid diet with no nausea, no vomiting. Review of Systems All other system reviewed and are negative. Physical Exam 2 Vital Signs: Vital Signs: Last Vital Signs Temp 97.3 F 08/28/24 07:46 Pulse 55 08/28/24 07:46 Resp 18 08/28/24 07:46 BP 130/69 08/28/24 07:46 Pulse Ox 98 08/28/24 07:46 O2 Del Method Room Air 08/28/24 07:46 BMI result Body Mass Index 35.3 Const: Other: Gen: in no acute distress HEENT: sclera anicteric, moist mucus membranes Neck: supple Lungs: clear to auscultation bilaterally Heart: regular rate and rhythm, no murmurs Abd: soft, right-side discomfort with palpation without rebound/guarding, non- distended, bowel sounds audible Ext: no edema Skin: warm/well-perfused Neuro: alert and oriented x3, no focal findings Psych: appropriate affect Objective Data Active Medications Acetaminophen (Acetaminophen 325 Mg Tablet) 650 mg PO Q6H PRN PRN Reason: Pain, Mild (Pain Scale 1-3), fever or headache Last Admin: 08/24/24 10:42 Dose: 650 mg Documented By: JULIANNE Calcium Carbonate (Calcium Carbonate 750 Mg Tab.Chew) 750 mg PO Q4H PRN PRN Reason: Heartburn Calcium Carbonate/Cholecalciferol (Calcium + Vitamin D 250 Mg Tablet) 250 mg PO BID [facility] Last Admin: 08/28/24 07:42 Dose: 250 mg Documented By: TOPHER Dicyclomine HCl (Dicyclomine Hcl 10 Mg Capsule) 10 mg PO TIDAC PRN PRN Reason: abdominal pain Last Admin: 08/20/24 09:47 Dose: 10 mg Documented By: RAH Enoxaparin Sodium (Enoxaparin Sodium 40 Mg/0.4 Ml Syringe) 40 mg SUBCUT Q24H [facility] Last Admin: 08/28/24 13:42 Dose: 40 mg Documented By: TOPHER Ferrous Sulfate (Ferrous Sulfate 324 Mg Tablet.) 324 mg PO DAILY [facility] Last Admin: 08/28/24 07:42 Dose: 324 mg Documented By: TOPHER Hydromorphone HCl (Hydromorphone Hcl 0.5 Mg/0.5 Ml Syringe) 0.5 mg IVPUSH Q4H PRN; Protocol PRN Reason: Pain, Severe (Pain Scale 7-10) Last Admin: 08/28/24 11:56 Dose: 0.5 mg Documented By: TOPHER Lactated Ringer's (Lr) 1,000 mls @ 80 mls/hr IVCONT .[id number] [facility] Last Infusion: 08/28/24 13:46 Dose: Infused Documented By: TOPHER Levothyroxine Sodium (Levothyroxine Sodium 88 Mcg Tablet) 88 mcg PO DAILY@0600 [facility] Last Admin: 08/28/24 06:28 Dose: 88 mcg Documented By: BERENICE Loratadine (Loratadine 10 Mg Tablet) 10 mg PO DAILY PRN PRN Reason: allergy symptoms Magnesium Hydroxide (Milk Of Magnesia 30 Ml Oral.Susp) 30 ml PO DAILY PRN PRN Reason: Constipation Melatonin (Melatonin 3 Mg Tablet) 6 mg PO BEDTIME PRN PRN Reason: Insomnia Mesalamine (Mesalamine 250 Mg Capsule.Er) 1,000 mg PO QID [facility] Last Admin: 08/28/24 11:56 Dose: 1,000 mg Documented By: TOPHER Mirabegron (Mirabegron 25 Mg Tab.Er.24h) 25 mg PO DAILY [facility] Last Admin: 08/28/24 07:42 Dose: 25 mg Documented By: TOPHER Omeprazole (Omeprazole 40 Mg Capsule.Dr) 40 mg PO DAILY@0630 [facility] Last Admin: 08/28/24 06:28 Dose: 40 mg Documented By: BERENICE Ondansetron HCl (Ondansetron Hcl 4 Mg/2 Ml Vial) 4 mg IVPUSH Q8H PRN PRN Reason: Nausea and Vomiting Oxycodone HCl (Oxycodone Hcl Immed Release 5 Mg Tablet) 5 mg PO Q4H PRN PRN Reason: Pain, Moderate(Pain Scale 4-6) Last Admin: 08/25/24 08:49 Dose: 5 mg Documented By: JULIANNE Prednisone (Prednisone 20 Mg Tablet) 40 mg PO DAILY [facility] Last Admin: 08/28/24 07:42 Dose: 40 mg Documented By: TOPHER Sodium Chloride (0.9 % Sodium Chloride Flush 3 Ml Syringe) 3 ml IVFLUSH QSHIFT [facility] Last Admin: 08/28/24 13:46 Dose: 3 ml Documented By: TOPHER Labs 08/27/24 06:14 08/27/24 06:14 Assessment and Plan (1) Partial small bowel obstruction: Status: Acute (2) Crohn's disease: Status: Acute Plan 63yo F with Crohn's disease presenting with 24h of worsening abd pain, nausea, and vomiting; found to have pSBO pSBO - no worsening abdominal pain, tolerating clear liquid diet , had small regular bowel movement/and few loose stool CT abdomen and pelvis showed mildly dilated and fluid-filled small loops with air-fluid levels, no discrete transition point air and stool within the colon findings indicative of partial distal small-bowel obstruction versus ileus, no intra-abdominal mass or lymphadenopathy, no ascites Will advance diet to regular, DC IV fluid , monitor clinical course Crohn's disease flare - transitioned from IV methylprednisolone 60mg q6h to PO prednisone 40 mg/d 08/20, taper 10mg weekly x4 weeks; continue mesalamine; will decrease prednisone to [address] abdomen and pelvis as above, C diff PCR negative continue supportive care/analgesics Case discussed with GI they recommend to advance diet hypoK - repleted, repeat potassium stable hypothyroidism - continue LT4 GERD - continue PPI VTE prophylaxis - enoxaparin dispo - home when medically stable In my clinical judgment, the patient requires continued inpatient hospitalization for the following reasons: Persistent abd pain/ileus Quality Stroke Does the patient have a stroke diagnosis?: No VTE Prior VTE?: No VTE Risk Level:: Medical - moderate - high VTE Device Contraindication: Treatment Not Indicated VTE Drug Contraindication: N/A - Med Ordered
[2024-08-28] MEDS: oxyCODONE HCl Immed Release 5 MG TABLET PO (23:24)
[2024-08-29 00:27] VITALS: RESP 16
[2024-08-29 03:42] VITALS: BP 103/53; PULSE 57; RESP 14; TEMP 36.3; O2SAT 94
[2024-08-29 03:47] VITALS: RESP 18
[2024-08-29] MEDS: HYDROmorphone HCl 0.5 MG/0.5 ML SYRINGE IVPUSH ×2 (03:47→09:51)
[2024-08-29 04:17] VITALS: RESP 18
[2024-08-29] MEDS: Omeprazole 40 MG CAPSULE.DR PO (05:55)
[2024-08-29] MEDS: Levothyroxine Sodium 88 MCG TABLET PO (05:55)
[2024-08-29 06:39] LABS: Anion Gap 15 (12-20); Blood Urea Nitrogen 18 mg/dL (9-16); Calcium 8.7 mg/dL (8.4-10.2); Carbon Dioxide 23 mmol/L (22-29); Chloride 108 mmol/L (96-108); Creatinine Clr Calc Pharmacy 69.2; Estimated Glomerular Filt Rate > 60; Glucose Random 102 mg/dL (60-115); Potassium 3.8 mmol/L (3.3-5.1); Sodium 142 mmol/L (135-145)
[2024-08-29 08:00] VITALS: BP 106/57; PULSE 57; RESP 18; TEMP 36; O2SAT 95
[2024-08-29] MEDS: 0.9 % Sodium Chloride Flush 3 ML SYRINGE IVFLUSH (09:52)
[2024-08-29] MEDS: Mirabegron 25 MG TAB.ER.24H PO (09:55)
[2024-08-29] MEDS: Mesalamine 250 MG CAPSULE.ER 1000 MG PO ×2 (09:55→12:24)
[2024-08-29] MEDS: Ferrous Sulfate 324 MG TABLET.DR PO (09:56)
[2024-08-29] MEDS: Calcium + Vitamin D 250 MG TABLET PO (09:56)
[2024-08-29] MEDS: predniSONE 10 MG TABLET 30 MG PO (09:56)
[2024-08-29] MEDS: oxyCODONE HCl Immed Release 5 MG TABLET PO (12:23)
[2024-08-29] MEDS: Dicyclomine HCl 10 MG CAPSULE PO (12:24)
--- NOTE | 2024-08-29 13:19 | P.DS_ITS ---
DS: Providers Provider Date of Service: 08/29/24 Date of admission: 08/17/24 13:39 Date of discharge: 08/29/24 Primary care physician: Yuli Garner MD Consults: 08/17/24 21:03 Consult to Wound Care Routine Reason for consultation: excoriation to scalp 08/20/24 12:13 Consult to General Surgery Routine Consulting Provider: [facility] [place] General Surgeons Reason for consultation: abd pain abnormal ct abd/psbo Has provider been notified: No 08/20/24 12:17 Consult to Gastroenterology Routine Consulting Provider: Nadiya Neves Reason for consultation: sbo/crohns Has provider been notified: No DS: Diagnosis Discharge Diagnosis (1) Partial small bowel obstruction: Status: Acute (2) Crohn's disease: Status: Acute DS: Summary Hospital Course Hospital Course: History of presenting illness: Date of Service: 08/17/24 Chief Complaint: Abdominal pain 63 yo female with PMH of Crohns disease s/p subtotal colectomy on pentasa follows with Dr. Navas, GERD, HLD, hypothyroidism, hyperparathyroidism, osteoporosis here with c/o 1 day of abdominal pain, diarrhea non bloody. No fevers, chills, nausea, vomiting. States prior to yesterday, she was eating and moving her bowels normally. She states this feels similar to past Crohn's exacerbation, passing flatus. Hospital course: 63yo F with Crohn's disease presenting with 24h of worsening abd pain, nausea, and vomiting; found to have pSBO likely due to Crohn's disease flare, patient admitted to medical floor treated with IV fluids, IV prednisone, Noted to have intermittent abdominal pain was followed closely by General surgery and Gastroenterology patient diet was gradually advanced that she is tolerating fairly well, initially had loose watery stools , C diff PCR negative, now moving formed stools in last 24 hours, since abdominal pain has improved unable to tolerate by mouth being discharged home on tapering dose of prednisone and mesalamine recommend to follow-up with Dr. Navas for Entyvio infusion. Acute hypokalemia repleted . hypothyroidism continue levothyroxine GERD - continue PPI Time Attestation Discharge Coordination Time (in mins): 38 Quality: Safe Use of Opioids Does Pt have an Active Cancer Diagnosis on the Problem List?: No Quality: Stroke Does the patient have a stroke diagnosis?: No Physical Exam Vital Signs: Vital Signs: Last Vital Signs Temp 96.8 F 08/29/24 08:00 Pulse 57 08/29/24 08:00 Resp 18 08/29/24 08:00 BP 106/57 L 08/29/24 08:00 Pulse Ox 95 08/29/24 08:00 O2 Del Method Room Air 08/29/24 08:00 BMI result Body Mass Index 35.3 Const: Other: Gen: in no acute distress HEENT: sclera anicteric, moist mucus membranes Neck: supple Lungs: clear to auscultation bilaterally Heart: regular rate and rhythm, no murmurs Abd: soft, nontender, non-distended, bowel sounds audible Ext: no edema Skin: warm/well-perfused Neuro: alert and oriented x3, no focal findings Psych: appropriate affect DS: Data Data Completed and Pending Completed studies during hospitalization [Text1]: Procedures Insertion of Infusion Device into Left Basilic Vein, Percutaneous Approach (07/04/21) Labs on day of discharge: Laboratory Results - last 24 hr 08/29/24 05:55 Hold Purple Top SEE NOTE Sodium 142 Potassium 3.8 Chloride 108 Carbon Dioxide 23 Anion Gap 15 BUN 18 H Creatinine 0.90 Estim Creat Clear Calc 69.2 Estimated GFR > 60 Random Glucose 102 Calcium 8.7 Discharge Plan Discharge Anticipated Discharge Date/Time: 08/29/24 13:07 Patient Disposition: Home, Self-Care Discharge Diagnosis: Partial small-bowel obstruction Acute Crohn's flare Referrals: Yuli Garner MD [Primary Care Provider] - 1 Week Discharge Medications: New prednisone 10 mg tablet 10 mg PO DIRECTED Qty: 40 0RF Rx Instructions: see taper instructions; 30 mg daily x6 days, 20 mg daily x7 days, 10 mg daily x 7 days oxycodone 5 mg Tablet 5 mg PO Q6H PRN (Reason: Pain, Moderate(Pain Scale 4-6)) Qty: 20 0RF Rx Instructions: Partial Fill upon patient request. Continued cetirizine [Allergy Relief (cetirizine)] 10 mg tablet 10 mg PO DAILY PRN (Reason: allergy symptoms) Qty: 90 1RF ferrous sulfate 325 mg (65 mg iron) tablet 325 mg PO DAILY Qty: 90 1RF calcium carbonate 600 mg calcium (1,500 mg) tablet 600 mg PO BID Qty: 180 3RF mirabegron [Myrbetriq] 25 mg tablet extended release 24 hr 25 mg PO DAILY cholecalciferol (vitamin D3) 250 mcg (10,000 unit) capsule 250 mcg PO MOFR@0900 mesalamine [Pentasa] 500 mg capsule, extended release 1,000 mg PO QID levothyroxine 88 mcg tablet 88 mcg PO DAILY@0600 pantoprazole 40 mg tablet,delayed release (DR/EC) 40 mg PO DAILY@0630 Discharge Orders: Discharge Order (Routine); Ordered 08/29/24 Ordered By: Asa Vergara Stand Alone Forms: Patient Portal Discharge page Print Language: Ukrainian Activity Restrictions/Additional Instructions: Topical Wound Care Recommendations: Scalp - May wash hair when cleared for shower. May use shower cap to wash hair and removed dried drainage. Cleanse with NS, moist gauze, Apply layer of vaseline, recommend covering with dry gauze to prevent from pt picking and secure with gauze wrap. Patient refused cover dressing, may just use vaseline and cleanse daily. Recommend out pt follow up with wound clinic and Dermatology. Care Plan Goals: Continue prednisone tapering dose Take prednisone 10 mg 3 tablets for 6 more days Prednisone 10 mg 2 tablets for 7 days Prednisone 10 mg 1 tablet for 7 days Continue Pentasa and all other medication as before Take oxycodone 5 mg as needed for [id number] abdominal pain only, avoid if no severe pain Take small meals, bland diet Health Concerns: As above Plan of Treatment: Outpatient follow-up with Gastroenterology Dr. Navas for Entyvio infusion, call for appointment Assessment: As above Patient Instructions: Crohn Disease (DC), Bowel Obstruction (DC)
--- NOTE | 2024-08-29 13:47 | MHC.CM.PN ---
Patient medically cleared for dc home self care via private transport.
[2024-09-04 16:43] LABS: Calprotectin, Fecal 293 mcg/g
== END 2024-08-29 13:42 | disposition home or self-care (01) | DRG 245 ==
LOC: HO.ED 12:55 → HO.EDOVER 13:39 → HO.S3 19:35
PROVIDERS: Family Medicine; Internal Medicine Gastroenterology; Admitting Provider Hospitalist; Emergency Provider Emergency Medicine; PCP Internal Medicine; Visit Provider Hospitalist
DX: K50.012 Crohn's disease of small intestine with intestinal obstruction (principal); K56.7 Ileus, unspecified; E03.9 Hypothyroidism, unspecified; R19.7 Diarrhea, unspecified; E87.6 Hypokalemia; K21.9 Gastro-esophageal reflux disease without esophagitis; Z79.620 Long term (current) use of immunosuppressive biologic; Z79.890 Hormone replacement therapy; Z79.899 Other long term (current) drug therapy
CPT/HCPCS: 36415; 74018; 74177; 80048; 80053; 80076; 81001; 81003; 83690; 83735; 83993; 85025; 85027; 86140; 87086; 87493; 87507; 99285; J1171; J1650; J2405; J2470; J2919; J3480; J7120; Q9967

== ENCOUNTER → 2024-08-17 13:39 | Outpatient (BNV) | payer OTHER, SELFPAY | PROVIDERS: Admitting Provider Hospitalist; Emergency Provider Emergency Medicine; PCP Internal Medicine; Visit Provider Hospitalist | DX: K50.012 Crohn's disease of small intestine with intestinal obstruction (principal) | CPT/HCPCS: 99223; 99232 ==

== ENCOUNTER → 2024-08-17 13:39 | Outpatient (BNV) | payer OTHER, SELFPAY | PROVIDERS: Admitting Provider Hospitalist; Emergency Provider Emergency Medicine; PCP Internal Medicine; Visit Provider Physician Assistant Surgical | DX: K56.600 Partial intestinal obstruction, unspecified as to cause (principal) | CPT/HCPCS: 99222; 99232 ==

== ENCOUNTER → 2024-08-17 13:39 | Outpatient (BNV) | payer OTHER, SELFPAY | PROVIDERS: Admitting Provider Hospitalist; Emergency Provider Emergency Medicine; PCP Internal Medicine; Visit Provider Internal Medicine Gastroenterology | DX: K56.600 Partial intestinal obstruction, unspecified as to cause (principal) | CPT/HCPCS: 99223; 99232 ==

== ENCOUNTER 2024-09-04 09:42 | Outpatient (AMB) | payer OTHER, SELFPAY ==
--- NOTE | 2024-09-04 10:17 | A.OFFPC_ITS ---
Vital Signs 09/04/24 10:18 Height 5 ft 4 in Weight 183 lb BMI 31.4 BP 112/70 Blood Pressure Location Rt brachial Position Sitting Pulse 80 Pulse Source Pulse Oximeter Pulse Oximetry (%) 98 Oxygen Delivery Method Room Air Intake Visit Reasons: pre-op for Lt eye cataract 10/02/24, Rt eye 10/23/24 Intake Note: Pt is here today for her pre-op for Lt eye cataract 10/02/24, Rt eye is 10/23/24 w/Dr. Tang * [facility] Allergies No Known Allergies [No Known Allergies*] Allergy (Verified 09/04/24 10:52) Medication List - Last Reconciled 09/04/24 by Yuli Garner MD calcium carbonate 600 mg PO BID cetirizine (Allergy Relief (cetirizine)) 10 mg PO DAILY PRN cholecalciferol (vitamin D3) 250 mcg PO MOFR@0900 ferrous sulfate 325 mg PO DAILY levothyroxine 88 mcg PO DAILY@0600 mesalamine ER (Pentasa) 1,000 mg PO QID mirabegron ER (Myrbetriq) 25 mg PO DAILY pantoprazole 40 mg PO DAILY@0630 Tobacco use date assessed: 09/04/24 Dental Screening Dental Screen Date: 09/04/24 Did you have a dental visit in the last 12 months?: No Did you have a dental problem in the last 6 months where you did not have access to dental care?: No Was dental information given to patient?: Patient declined HPI HPI Comments History of Present Illness Details - The patient is a 63-year-old female wi th history of Crohn's disease, impaired fasting glucose, obesity, osteoporosis, acquired hypothyroidism and hyperparathyroidism followed by endocrine clinic, presenting today for preoperative exam for cataract surgery scheduled for 10/02/2024 for the left eye and 10/23/24 for the right eye requested by Dr. Tang -she was recently hospitalized for two a nd a half weeks due to exacerbation of Crohn's and colitis. - Discharged with instructions for predn isone taper, but patient did not start taking as bowel movements has been regular, t still taking Pentasa, which patient states has not been as effective lately. No bleeding or diarrhea, stool formed. - Scheduled to discuss infusion therapy with the advertising project manager. -she has been feeling well, with no othe r complaints at present time. [facility] Medical History Partial small bowel obstruction History of small bowel obstruction Dyslipidemia Impaired fasting glucose History of COVID-19 GERD (gastroesophageal reflux disease) Morbid obesity Hyperparathyroidism Overactive bladder Upper back pain, chronic Large breasts Vitamin D deficiency Osteoporosis Postmenopause History of shingles Acquired hypothyroidism RLS (restless legs syndrome) Surgical History Hx of sigmoidoscopy Hx of reduction mammoplasty History of bowel resection History of esophagogastroduodenoscopy Hx of colonoscopy Hx of cholecystectomy Hx of tonsillectomy History of appendectomy H/O partial resection of colon Family History Father Lung cancer Mother Diabetes Hypertension Sister No problems noted. Mother Diabetes Paternal Grandmother Diabetes Father Lung cancer Paternal Uncle Lung cancer Social History Household Members: Family Housing: Apartment Are you a primary care technician to a significant other at home: No Do you presently have visiting nurse or other home services: No Alcohol intake: never Patient Tobacco Use Status: Never used Tobacco e-Cigarette/Vaping Use: Never Used Second Hand Smoke Exposure: No Advance Directives Date on File: 05/31/22 service: No Current occupational status: unemployed and disabled Current occupation: [employer] Cognitive needs: No Hearing needs: No Vision needs: Yes Female Reproductive History Menstrual Age of Menarche: 12 Questionnaire Thrive Questionnaire Date Thrive assessed: 08/18/24 AUDIT C Alcohol Use Questionnaire (AUDIT-C) 1. How often do you have a drink containing alcohol?: Never 3. How often do you have six or more drinks on one occasion?: Never Total Score: 0 Score Reviewed/Action Taken: Yes NICOLE-7 AMB Questionnaire NICOLE-7 Date NICOLE - 7 assessed: 10/27/23 Source: Developed by Drs. Brendon Muñoz, Kasey Becker, Raul Sweet and colleagues, with an educational bakari from [employer]. Review of Systems Const Reports as per HPI Eyes Denies change in vision ENT Reports no additional complaints Card Denies chest pain, Denies chest pain with activity and Denies irregular heart rhythm Resp Reports as per HPI, Denies cough and Denies wheezing GI Denies abdominal pain, Denies melena, Denies bloating, Denies hematochezia, Denies change in bowel habits and Denies heartburn Reports no additional complaints Musc Reports no additional complaints Skin/Breast Denies rash Neuro Denies Abnormal speech present Endo Reports no additional complaints Domenic/Lymph Denies easy bleeding Aller/Immun Denies wheezing Physical exam (Primary Care) Vital Signs: Last Vital Signs Pulse 80 09/04/24 10:18 BP 112/70 09/04/24 10:18 Pulse Ox 98 09/04/24 10:18 Oxygen Delivery Method Room Air 09/04/24 10:18 BMI result Body Mass Index 31.4 Tobacco/Smoking Status: Tobacco use Status Tobacco use date assessed 09/04/24 09/04/24 10:28 Patient Tobacco Use Status Never used Tobacco 09/04/24 10:18 e-Cigarette/Vaping Use Never Used 09/04/24 10:18 Thrive Assessment: Date of Thrive Assessment Date Thrive assessed 08/18/24 09/04/24 10:18 Const General: comfortable and no acute distress Nutritional Appearance: obese Orientation/consciousness: patient oriented x3 HENMT Mouth: Normal oral and palatal mucosa present, oropharynx normal and moist mucous membranes Eyes Pupils: Equal, round and reactive pupils present EOM: EOMs intact bilaterally Neck Neck: Yes full ROM, Yes no lymphadenopathy and Yes supple Resp Effort & Inspection: normal respiratory effort and able to speak in complete sentences Auscultation: clear to auscultation bilaterally Cardio Other: S1-S2 present regular rate and rhythm GI Inspection: Yes obesity Palpation (GI): Soft to palpation, no guarding and no masses Auscultation: normal bowel sounds Skin General skin exam: no rashes or lesions noted Neuro General: patient oriented x3, gait normal, moves all extremities, no focal motor deficits and normal sensation to monofilament Cranial nerves: Yes Equal, round and reactive pupils present Speech: No Abnormal speech present Extrem General: Yes full ROM, Yes no joint enlargement, Yes no clubbing, cyanosis or edema, Yes no calf tenderness and Yes normal gait Results Reviewed Results Reviewed: Name: Meredith Bravo Age/Sex: 63/F : 1960 Unit#: [id number] Attend Dr: Asa Vergara MD Re08/17/24 Status: DIS IN Location: [facility] 384-1 Disch: 08/29/24 SPEC : [id number] JOSE: 08/27/24 STATUS: COMP REQ : [id number] RECD: 08/27/[address]: Asa Vergara MD COMP: 08/27/24 ENTERED: 08/27/[address]: Yuli Garner MD ORDERED: CBC No Diff Test Result Flag Reference WBC 9.0 4.8-10.8 X10*3/uL RBC 4.41 4.20-5.50 X10*6/uL HGB 12.4 12.0-16.0 g/dl HCT 37.6 37.0-47.0 % MCV 85.3 80.0-98.0 fL MCH 28.1 27.0-33.0 pg MCHC 33.0 31.0-35.0 g/dl RDW 16.9 H 11.0-16.0 % PLT 269 # 160-400 X10*3/uL MPV 10.5 9.4-12.3 fL NRBC Pct Auto 0.0 0.0-0.2 /100WBC NRBC Abs Auto 0.000 0.0-0.012 X10*3/uL Name: Meredith Bravo Age/Sex: 63/F : 1960 Unit#: [id number] Attend Dr: Asa Vergara MD Re08/17/24 Status: DIS IN Location: [facility] 384-1 Disch: 08/29/24 SPEC : [id number] JOSE: 08/29/24 STATUS: COMP REQ : [id number] RECD: 08/29/[address]: Asa Vergara MD COMP: 08/29/24 ENTERED: 08/29/[address]: Yuli Garner MD ORDERED: BMP Test Result Flag Reference Sodium 142 135-145 mmol/L Potassium 3.8 3.3-5.1 mmol/L Slight Hemolysis.Interpret result with caution. CL 108 96-108 mmol/L CO2 23 22-29 mmol/L Gap 15 12-20 BUN 18 H 9-16 mg/dL Creat 0.90 0.5-1.4 mg/dL Estimated CrCl 69.2 Provided height and weight: 160.02 cm, 90.5 kg. eGFR (calculated from the MDRD study equation) and eCrCl (calculated from the Cockcroft-Gault equation) are based on different parameters and may not yield comparable results. If eCrCl result is absurd, please check patient's height/weight. eGFR > 60 Chronic Kidney Disease: Estimated GFR < 60 mL/min/1.73m2 Severe Kidney Disease: Estimated GFR < 15 mL/min/1.73m2 Glucose, Random 102 60-115 mg/dL CA 8.7 8.4-10.2 mg/dL Laboratory Tests 03/15/21 05/29/22 06/02/22 14:46 06:39 12:48 WBC 6.3 Hgb 11.8 L Hct 35.8 L RDW 15.8 Plt Count 366 Sodium 143 Potassium 3.7 Chloride 116 H Carbon Dioxide 17 L Anion Gap 14 BUN 17 H Creatinine 0.86 Estim Creat Clear Calc 73.4 Estimated GFR > 60 Random Glucose 81 Hgb A1c (Clinic) Calcium 7.6 L D Triglycerides Cholesterol LDL Cholesterol, Calc HDL Cholesterol 25-OH Vitamin D Total TSH 0.77 Free T4 1.10 11/23/22 02/01/24 02/21/24 09:34 15:28 11:11 WBC 5.4 Hgb 13.1 Hct 41.8 RDW 17.3 H Plt Count 329 Sodium Potassium Chloride Carbon Dioxide Anion Gap BUN Creatinine Estim Creat Clear Calc Estimated GFR Random Glucose 106 Hgb A1c (Clinic) 5.8 Calcium Triglycerides 132 Cholesterol 225 H LDL Cholesterol, Calc 111 H HDL Cholesterol 88 25-OH Vitamin D Total 25.7 TSH 2.92 Free T4 1.21 Coding Level of Care Code Est Pt Level 4 (30236) Complex EM visit Add On G2211 Diagnoses Preoperative examination Z01.818 Crohn's disease K50.019 Digestive disease complication type: unspecified complication Gastrointestinal tract location: small intestine Dyslipidemia E78.5 Age-related osteoporosis without current pathological fracture M81.0 Osteoporosis type: age-related Presence of current pathological fracture: without current pathological fracture Acquired hypothyroidism E03.9 Hyperparathyroidism E21.3 Assessment & Plan Assessment & Plan (1) Preoperative examination: Code(s): Z01.818 - Encounter for other preprocedural examination (2) Crohn's disease: Code(s): K50.90 - Crohn's disease, unspecified, without complications Category: Medical Qualifiers: Digestive disease complication type: unspecified complication Gastrointestinal tract location: small intestine Qualified Code(s): K50.019 - Crohn's disease of small intestine with unspecified complications (3) Dyslipidemia: Code(s): E78.5 - Hyperlipidemia, unspecified Category: Medical (4) Osteoporosis: Code(s): M81.0 - Age-related osteoporosis without current pathological fracture Category: Medical Qualifiers: Osteoporosis type: age-related Presence of current pathological fracture: without current pathological fracture Qualified Code(s): M81.0 - Age-related osteoporosis without current pathological fracture (5) Acquired hypothyroidism: Code(s): E03.9 - Hypothyroidism, unspecified Category: Medical (6) Hyperparathyroidism: Code(s): E21.3 - Hyperparathyroidism, unspecified Category: Medical Plan I discussed with the patient the current management of her Crohn's Disease, which is currently controlled, emphasizing the importance of communicating with her advertising project manager, Dr. Navas, regarding the current status of her treatment, including the cessation of prednisone. I suggested the consideration of a stool softener if needed, if constipation persists.. We reviewed her vaccination history, confirming she is up-to-date, Furthermore, we discussed the necessity of attending scheduled follow-ups promptly with Dr. Navas and Dr. Boo for follow-up regarding her hyperparathyroidism , hypothyroidism, and osteoporosis Examination today was within normal limits, she has a low cardiac risk index for scheduled cataract surgery on September 22 and October 23.
[2024-09-04 10:18] VITALS: BP 112/70; PULSE 80; O2SAT 98; BMI 31.4
== END 2024-09-04 11:09 | disposition home or self-care (01) ==
PROVIDERS: PCP Internal Medicine; Visit Provider Internal Medicine
DX: K50.019 Crohn's disease of small intestine with unspecified complications (principal); E21.3 Hyperparathyroidism, unspecified; Z01.818 Encounter for other preprocedural examination; E78.5 Hyperlipidemia, unspecified; M81.0 Age-related osteoporosis without current pathological fracture; E03.9 Hypothyroidism, unspecified

== ENCOUNTER → 2024-09-04 09:42 | Outpatient (BNVA) | payer OTHER, SELFPAY | PROVIDERS: PCP Internal Medicine; Visit Provider Internal Medicine | DX: Z01.818 Encounter for other preprocedural examination (principal); K50.019 Crohn's disease of small intestine with unspecified complications; E78.5 Hyperlipidemia, unspecified; M81.0 Age-related osteoporosis without current pathological fracture; E03.9 Hypothyroidism, unspecified; E21.3 Hyperparathyroidism, unspecified | CPT/HCPCS: 99212 ==

== ENCOUNTER 2024-09-26 09:23 | Outpatient (AMB) | payer OTHER, SELFPAY ==
--- NOTE | 2024-09-26 09:33 | A.OFFVIS_ITS ---
Vital Signs 09/26/24 09:34 Height 5 ft 4 in Weight 180 lb BMI 30.9 BP 133/60 Blood Pressure Location Lt brachial Position Sitting Pulse 87 Intake Visit Reasons: 6 month follow up Intake Note: Patient 6 month follow up for abdominal pain. 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 Accompanied by: Self / Same As Patient Allergies No Known Allergies [No Known Allergies*] Allergy (Verified 09/26/24 09:32) Medication List - Last Reconciled 09/26/24 by Chelsie Navas MD calcium carbonate 600 mg PO BID cetirizine (Allergy Relief (cetirizine)) 10 mg PO DAILY PRN cholecalciferol (vitamin D3) 250 mcg PO MOFR@0900 ferrous sulfate 325 mg PO DAILY levothyroxine 88 mcg PO DAILY@0600 mesalamine ER (Pentasa) 1,000 mg PO QID mirabegron ER (Myrbetriq) 25 mg PO DAILY pantoprazole 40 mg PO DAILY@0630 HPI HPI 6 month follow up: Details: GI CLINIC VISIT FOR THIS 63-YEAR-OLD FEMALE WITH GERD, OSTEOPOROSIS, HYPOTHYROIDISM, HYPERPARATHYROIDISM HERE FOR FOLLOW-UP OF CROHN'S DISEASE. Patient has been followed by Dr. Jordan since 2012. Pt was hospitalized from 08/17/24 to 08/29/24 She was treated with IV steroids followed by PO prednisone taper. Normal small bowel mucosa proximally. No polyps were detected. Decreased vascularity due to inactive Crohn's disease in the colon - surveillance biopsies were obtained. Plan:? Repeat Colonoscopy interval based on path results - in 2 years if no dysplasia on colon biopsies. BIOPSIES SHOWED: A.? Terminal ileum, biopsy:? Ileocolonic mucosa with mild crypt disarray; otherwise within normal limits. B.? Colon, 25 cm, biopsy:? Colonic mucosa within normal limits. C.? Colon, 15 cm, biopsy:? Colonic mucosa within normal limits. D.? Colon, 5 cm, biopsy:? Colonic mucosa within normal limits. COMMENT:? No dysplasia or granulomata are seen. 05/2018 FLEXIBLE SIGMOIDOSCOPY SHOWED:No polyps seen.Dilated small bowel with scattered 1 -1.5 cms ulcers througout - biopsies were obtained for histology and viral cultures. Significant amounts of stool not seen in the small intestine. Ileo-colic anastomosis at 35 cms. Circumferential ulcers with cobblestone appearance - multiple biopsies were obtained. Colonoscope passed easily through the anastomosis and no obstruction noted. Endoscopic appearance suggestive of Crohn's disease - other possibilities include CMV infection or ischemic ulcers related to past surgery/ small bowel dilation. Plan: Await pathology results. Resume a clear liquid diet as tolerated until biopsy results are available. Repeat Colonoscopy interval based on path results. BIOPSIES SHOWED: A.? SMALL BOWEL ULCER, BIOPSIES:? FRAGMENTS OF SMALL INTESTINAL MUCOSA WITH ACTIVE ILEITIS AND ULCERATION WITH RARE CYTOMEGALOVIRUS INCLUSIONS (SEE NOTE). B.? COLON, ULCER, BIOPSIES:? FRAGMENTS OF SMALL INTESTINAL AND COLONIC MUCOSA AND GRANULATION TISSUE WITH MILD CHRONIC ACTIVE COLITIS (SEE NOTE). C.? RECTUM, BIOPSIES:? FRAGMENTS OF HYPERPLASTIC COLONIC MUCOSA. NOTE:? THERE IS CRYPT ARCHITECTURAL DISTORTION, GLANDULAR BUDDING AND SUBMUCOSAL MIXED INFLAMMATORY INFILTRATES.? THESE FINDINGS MAY BE DUE TO THE CMV INFECTION, BUT THERE MAY BE UNDERLYING CROHN'S DISEASE OR ULCERATIVE COLITIS.? RECOMMEND TREATING CMV INFECTION AND FOLLOW-UP ENDOSCOPY WITH BIOPSIES TO RULE OUT INFLAMMATORY BOWL DISEASE. TODAY'S VISIT: Did not take the steroids Not going to the bathroom regularly - has a BM every other day or every 2 days with adequate evacuation Was having BMs twice a day prior to hospitalization. Eating a lot of fibre Denies feeling bloated like she was in the hospital. Taking iron once a day - can feels a little dizzy climbing stairs Feels she is wobbly Continues to feel bloated and has been eating less Had a good BM last night. Sometimes she feels she has to push. Stool are darker since she started taking iron. PAST VISITS: CC; Pt recently started on humira following nurse instruction. Pt also had lab work completed that was ordered at their last visit. Pt reports that they have had slight improvements in their sx since their last visit. However, they do feel that they are still experiencing their chronic sx, particularly the bloating. Pt denies any difficulties with the humira injections to this point. Took her 1st Humira injection on 03/02/24 and will be taking the 2nd injection on 03/16/24 Discharged home on 01/22/24 on a prednisone taper. Feels weak with intermittent dizziness and does not feel herself Prescription for prednisone was ? miswrittent and she has been taking 1 tab daily and to increase to 2 tab on week 2 and then 3 tab on week 3 Sitting up all the time - does not want to lay down Flex sig and biopsy results reviewed Sometimes I get flared up Has been taking more salads Can have pain and feels bloated. Tries to go and stool feels stuck at the end and unable to expell Takes Miralax prn if she is bloated and stool gets stuck - once every two weeks. Denies cough and does'nt think she has a fever. Having diarrhea - 3 BMs yesterday and twice today Diarrhea has improved since hospitalization and denies any blood in the stool PAST VISITS: She was advised to take Miralax once a week. Scheduled for breast reduction on 07/20/23 and unable to lie on her side for 8 weeks. She would like to reschedule to spring. Sometimes I cant go and sometimes it hurts to have a BM Noted blood in the stools last few days since she was pushing too hard and straining to go Taking Pentasa 4 times a day. Has a powder at home and has not been using it. Had an episode of nausea, vomiting and diarrhea a few weeks ago which lasted 24 hrs. She is doing well now. Had dark stools after she has spinach and broccoli. Lab and stool tests were reviewed - CRP slightly elevated. Planning to travel to [place] with her niece in January Going to [place] in March. Fecal calprotectin were normal. Bloating has resolved. Going normal with 1-3 times a day with passage of normal stools Cold sweats have resolved - thinks it was related to COVID infection. Had her 2nd Booster for COVID a few months Feels she has an infection. Intermittent cold sweats. Constantly going to the bathroom to urinate. Diarrhea is not as bad as while she was in the hospital. BMs are dark (blackish) Has been having a few loose pudding like BMs per day. Concerned about recurrent CMV infection. Upset since her sister with PMR in Nov 07, 2021. An aunt and sister as well Has to go to [place] in January to help her aunt. Going to the bathroom regularly. Once in a great while, she can see some blood (a little dot) Can have some abdominal pain - when she was very stressed and not eating right. Has been very stressed. Has been doing well since she had the subtotal colectomy without recurrent SBO. Has been taking the Pentasa 1 gram 4 times a day for the past several yrs. Continues to have heartburn - comes on all of a sudden - mostly at night. Takes Senna if she does not have a BM for a day and is able to go the next morning. Patient denies major cardiac or pulmonary problems, loud snoring or sleep apnea. Denies problems with anesthesia in the past. Denies being on chronic anticoagulation. Patient denies known family history of other GI malignancies. Sister had cancer in one of the polyps and had surgery and is doing fine now. IMAGING STUDIES:? 05/28/[address] SCAN SHOWED: Suspect partial colectomy. Fluid throughout mildly dilated large and small bowel as well as within the rectal vault. Findings suggest hypersecretion and mild ileus. ? Approximately 1 cm L4 sclerotic lesion, not otherwise characterized. No other sclerotic or lytic bony lesion identified. In the absence of known or suspected malignancy elsewhere (for example, breast cancer), the finding probably represents a bone island. Recommend clinical correlation. 05/[address] SCAN SHOWED:Status post subtotal colectomy.? Multiple dilated loops of small and large bowel with slight increased prominence and proximal loops of small bowel.? There was several air-fluid levels.? ENDOSCOPIC STUDIES: 11/20/23 FLEX SIG SHOWED: Terminal Ileum: Distal 10 cms was examined - normal mucosa - random biopsies were obtained. Multiple 1-2 cms ulcers at the ileo-colic anastomosis - multiple biopsies were obtained.? Sigmoid Colon:? Decreased vascularity due to inactive Crohn's disease in the colon - four quadrant biopsies were obtained. No polyps were detected. Plan: Repeat flexible sigmoidoscopy interval based on path results - in 2 - 3 years if no dysplasia on colon biopsies. BIOPSIES SHOWED: A. Terminal ileum, biopsy: Terminal ileal mucosa within normal limits. B. Anastomotic ulcer, biopsy: Ileocolonic mucosa with patchy active inflammation and fragment of ulcer material. C. Colon, sigmoid, biopsy: Colonic mucosa within normal limits. D. Rectum, biopsy: Rectal mucosa within normal limits. Comment: No dysplasia or granulomata are seen 07/02/21 SIGMOIDOSCOPY SHOWED:Focal 2-4 cms area of ulcerations just proximal to the ileo-colic anastomosis - multiple biopsies were obtained.? PAST GI HISTORY BY REVIEW OF MEDICAL RECORDS: IBD SUMMARY YEAR OF DIAGNOSIS:? 2000 DISEASE EXTENT:Colon and small intestines LAST COLONOSCOPY FINDINGS:06/2021 as noted above NEXT COLON DUE: 2022 EXTRAINTESTINAL MANIFESTATIONS: Denies skin rash, joint pains or eye pain GI SURGERY:? Colon resection 2000 - subtotal colectomy. CURRENT THERAPY:? Pentasa 1 gram 4 times daily, Senna for constipation VACCINATIONS: Flu shot:? Gets Flu shot every year. Hep A/B serology /vaccination:?unsure [facility] Medical History Partial small bowel obstruction History of small bowel obstruction Dyslipidemia Impaired fasting glucose History of COVID-19 GERD (gastroesophageal reflux disease) Morbid obesity Hyperparathyroidism Overactive bladder Upper back pain, chronic Large breasts Vitamin D deficiency Osteoporosis Postmenopause History of shingles Acquired hypothyroidism RLS (restless legs syndrome) Surgical History Hx of sigmoidoscopy Hx of reduction mammoplasty History of bowel resection History of esophagogastroduodenoscopy Hx of colonoscopy Hx of cholecystectomy Hx of tonsillectomy History of appendectomy H/O partial resection of colon Family History Father Lung cancer Mother Diabetes Hypertension Sister No problems noted. Mother Diabetes Paternal Grandmother Diabetes Father Lung cancer Paternal Uncle Lung cancer Social History Household Members: Family Housing: Apartment Are you a primary coronary care unit nurse to a significant other at home: No Do you presently have visiting nurse or other home services: No Alcohol intake: never Patient Tobacco Use Status: Never used Tobacco e-Cigarette/Vaping Use: Never Used Second Hand Smoke Exposure: No Advance Directives Date on File: 05/31/22 service: No Current occupational status: unemployed and disabled Current occupation: [employer] Cognitive needs: No Hearing needs: No Vision needs: Yes Female Reproductive History Menstrual Age of Menarche: 12 Physical Exam Vital Signs: Last Vital Signs Pulse 87 09/26/24 09:34 BP 133/60 09/26/24 09:34 BMI result Body Mass Index 30.9 Immunizations Engerix-B (PF) 20 mcg/mL intramuscular suspension Performing Provider: Chelsie Navas MD Performing Location: [facility] Administered by: Breana Johnston RN on 09/26/24 10:19 Dose Route Admin Location Dispensed Lot Number Expiration Date 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 Left Deltoid 1 mL [id number] 10/31/26 66703-761-81 [employer] VIS Given Date VIS Provided VIS Publication Date 09/26/24 Single Vaccine 23 Eligibility Eligibility Date Funding Source Not [facility] Eligible 09/26/24 Private Assessment & Plan Assessment & Plan (1) GERD (gastroesophageal reflux disease): Code(s): K21.9 - Gastro-esophageal reflux disease without esophagitis Category: Medical Qualifiers: Esophagitis presence: without esophagitis Qualified Code(s): K21.9 - Gastro-esophageal reflux disease without esophagitis (2) Crohn's disease: Code(s): K50.90 - Crohn's disease, unspecified, without complications Category: Medical Qualifiers: Digestive disease complication type: unspecified complication Gastrointestinal tract location: small intestine Qualified Code(s): K50.019 - Crohn's disease of small intestine with unspecified complications Plan 63 YF with Crohn's disease involving the small bowel and colon and is status post subtotal colectomy. Patient has been followed by Dr. Jordan since 2012. 05/2018 Flex Sig showed?Dilated small bowel with scattered 1 -1.5 cms ulcers througout - biopsies were positive for CMV inclusion and patient was treated for CMV. Ileo-colic anastomosis at 35 cms. Circumferential ulcers with cobblestone appearance - multiple biopsies were obtained 06/2021 Flexible Sig was performed and showed: Focal 2-4 cms area of ulcerations just proximal to the ileo-colic anastomosis - multiple biopsies were obtained.? Normal small bowel mucosa proximally. No polyps were detected. Decreased vascularity due to inactive Crohn's disease in the colon - surveillanc e biopsies were obtained. Plan:? Repeat Colonoscopy interval based on path results - in 2 years if no dysplasia on colon biopsies (due 06/2023) Patient's symptoms are well controlled with Pentasa 1 g 4 times daily. 07/2021 Pt was started on azathioprine due to focal area of ulcerations in the TI proximal to the anastomosis. Pt was hospitalized from 05/28 to 06/03/22 at [facility] COVID infection associated with diarrhea She was treated with Flagyl and Levqaquin for 7 days. Pt had postprandial abd discomfort with bloating after her hospitalization which has resolved. Pt was advised to go on a FODMAP diet for 6 weeks CRP slightly elevated at 0.61 and stool calprotectin was normal. 06/29/23 Scheduled for breast reduction on 07/20/23 and unable to lie on her side for 8 weeks. Meredith would like to reschedule her colonoscopy from 08/28/23 to spring. 12/07/23 Sometimes I get flared up Can have pain and feels bloated. Tries to go and stool feels stuck at the end and unable to expell Takes Miralax prn if she is bloated and stool gets stuck - once every two weeks. She was advised to take Miralax once a week. Repeat Flex Sig in 2-3 years for CD surveillance Pt advised to take Miralax 2-3 times a week for bloating and constipation I will arrange for IV iron infusions for anemia FU in 2 months Orders: Orders Hepatitis B Adult Immunization Today Z23 - Encounter for immunization Medications: New Engerix-B (PF) (hepatitis B virus vacc.rec(PF)) 1 mL IM ONCE 1 mL 0RF NS Z23 - Encounter for immunization Changed From cholecalciferol (vitamin D3) 250 mcg PO MOFR@0900 To cholecalciferol (vitamin D3) take twice a week 250 mcg PO MOFR@0900 26 caps 1RF 90 days Coding Diagnoses Gastroesophageal reflux disease without esophagitis K21.9 Esophagitis presence: without esophagitis Crohn's disease K50.019 Digestive disease complication type: unspecified complication Gastrointestinal tract location: small intestine
[2024-09-26 09:34] VITALS: BP 133/60; PULSE 87; BMI 30.9
== END 2024-09-26 10:48 | disposition home or self-care (01) ==
PROVIDERS: PCP Internal Medicine; Visit Provider Internal Medicine Gastroenterology
DX: Z23 Encounter for immunization (principal)

== ENCOUNTER → 2024-09-26 09:23 | Outpatient (BNVA) | payer OTHER, SELFPAY | PROVIDERS: PCP Internal Medicine; Visit Provider Internal Medicine Gastroenterology | DX: Z23 Encounter for immunization (principal); E21.3 Hyperparathyroidism, unspecified; K50.019 Crohn's disease of small intestine with unspecified complications | CPT/HCPCS: 90471; 90746; 99212 ==

== ENCOUNTER 2024-09-26 10:25 | Outpatient (AMB) | payer OTHER, SELFPAY ==
--- NOTE | 2024-09-26 10:28 | MHC.OFFVIS ---
Vital Signs 09/26/24 10:35 Height 5 ft 4 in Weight 183 lb 6.793 oz BMI 31.5 BP 100/66 Blood Pressure Location Rt brachial Position Sitting Pulse 77 Pulse Source Pulse Oximeter Intake Visit Reasons: f/u hyperparathyroidism and osteoporosis Intake Note: Patient present today for Hyperparathyroidism and Osteoporosis follow up. Fit Model Required: No Accompanied by: Self / Same As Patient Allergies No Known Allergies [No Known Allergies*] Allergy (Verified 09/26/24 10:36) HPI Comments Details: 63 YO Female with PMHx Crohn's disease, Osteoporosis and Hypothyroidism who is seen in F/U for the same.. First diagnosed in 2020 with her most recent BMD. Her prior BMD was completed at [facility] in the early and per her report revealed Osteopenia. After our initial visit we completed a full biochemical assessment which revealed elevated PTH levels. 03/15/2021 Calcium 9.0, PTH 96, Albumin 3.7, Vitamin D 39.4. 24 hour urine calcium was completely WNL. She had an US of the neck which revealed a L sided 1.9 cm hypoechoic lesion which possibly represents a parathyroid adenoma. We repeated labs more recently, and PTH was WNL with a low Vitamin D. 24 hour urine calcium was low. Labs repeated again still with Vitamin D below goal, and PTH elevated. She was started on Calcium supplement BID, and repeat labs revealed PTH had normalized. She did repeat her 24 hour urine collection, but this was an insufficient sample. Labs repeated again reveal Calcium and PTH WNL, and 24 hour urine collection was an adequate sample and WNL. Since that time labs have again been repeated, and PTH is elevated with Calcium WNL but Vitamin D low. She has never been treated for Osteoporosis. She does use protonix daily. Denies ever using anticoagulant, antiepileptic or glucocorticoid medication. Does weight bearing exercise 2-3 days per week in the form of walking or running, for 1 hour at a time. Fracture history: in her 30's she had a traumatic fracture of her arm and wrist after she fell on the stairs. 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 . Menopause was at age 51. Denies history of Kidney stones: Denies family history of Osteoporosis, but her sister did have a traumatic hip fracture. UTD on dental cleanings and sees dentist every 6 months. No planned upcoming dental work or extractions. She has full dentures. DXA dated 01/05/2021: FINDINGS: AP SPINE L1-L4: BMD 0.871 g/cm2, Z-score -2.2, T-score -2.6, osteoporosis. LEFT FEMUR, NECK: BMD 0.738 g/cm2, Z-score -1.5, T-score -2.2, osteopenia. LEFT FEMUR, TOTAL: BMD 0.779 g/cm2, Z-score -1.5, T-score -1.8, osteopenia. US Thyroid: 04/01/2021 Right Thyroid Lobe: 3.5 x 1.3 x 1.0 cm, volume 2.4 mL. Parenchyma: The gland echotexture is heterogeneous. Thyroid vascularity is normal. Left Thyroid Lobe: 4.0 x 1.0 x 1.0 cm, volume 2.1 mL. Parenchyma: The gland echotexture is heterogeneous. Thyroid vascularity is normal. Isthmus: 0.1 cm in maximum AP dimension. No focal thyroid nodule is seen. NODES: Left level 4 lymph node measuring 1.9 x 0.8 x 1.0 cm with normal architecture. Labs: Laboratory Tests 11/23/22 11/23/22 09:34 09:34 Sodium 142 Potassium 4.6 Creatinine 0.90 Estimated GFR > 60 25-OH Vitamin D Total 25.7 TSH 2.92 Free T4 1.21 PTH Intact 79 H Calcium (PTH Intact) 9.5 Recent PTH was found to be elevated on vitamin-D supplementation and calcium supplementation Dexa 08/16/23 FINDINGS: LEFT FEMUR, NECK: Current: BMD 0.723 g/cm2, Z-score -1.3, T-score -2.3, osteopenia. Baseline: BMD 0.738 g/cm2. LEFT FEMUR, TOTAL: Current: BMD 0.763 g/cm2, Z-score -1.3, T-score -1.9, osteopenia, 2.1% decrease from baseline (<5% change is not significant). Baseline: BMD 0.779 g/cm2. AP SPINE L1-L4: Current: BMD 0.829 g/cm2, Z-score -2.2, T-score -2.9, osteoporosis, 4.8% decrease from baseline (<5% change is not significant). Baseline: BMD 0.871 g/cm2. LEFT FOREARM RADIUS 33%: BMD 0.740 g/cm2, Z-score -0.5, T-score -1.6, osteopenia, 3.0% decrease from baseline (<5% change is not significant). Baseline: BMD 0.763 g/cm2. Repeat labs at lab [facility] ([facility]) showed normal calcium, PTH, 25 hydroxy vitamin-D. [facility] Medical History Partial small bowel obstruction History of small bowel obstruction Dyslipidemia Impaired fasting glucose History of COVID-19 GERD (gastroesophageal reflux disease) Morbid obesity Hyperparathyroidism Overactive bladder Upper back pain, chronic Large breasts Vitamin D deficiency Osteoporosis Postmenopause History of shingles Acquired hypothyroidism RLS (restless legs syndrome) Surgical History Hx of sigmoidoscopy Hx of reduction mammoplasty History of bowel resection History of esophagogastroduodenoscopy Hx of colonoscopy Hx of cholecystectomy Hx of tonsillectomy History of appendectomy H/O partial resection of colon Family History Father Lung cancer Mother Diabetes Hypertension Sister No problems noted. Mother Diabetes Paternal Grandmother Diabetes Father Lung cancer Paternal Uncle Lung cancer Social History Household Members: Family Housing: Apartment Are you a primary cardiac care nurse to a significant other at home: No Do you presently have visiting nurse or other home services: No Alcohol intake: never Patient Tobacco Use Status: Never used Tobacco e-Cigarette/Vaping Use: Never Used Second Hand Smoke Exposure: No Advance Directives Date on File: 05/31/22 service: No Current occupational status: unemployed and disabled Current occupation: [employer] Cognitive needs: No Hearing needs: No Vision needs: Yes Female Reproductive History Menstrual Age of Menarche: 12 Physical Exam Vital Signs: Last Vital Signs Pulse 77 09/26/24 10:35 BP 100/66 09/26/24 10:35 BMI result Body Mass Index 31.5 Assessment & Plan Assessment & Plan (1) Hyperparathyroidism: Code(s): E21.3 - Hyperparathyroidism, unspecified Category: Medical Plan: Recent PTH was found to be elevated with normal [id number] and calcium . Repeat calcium, albumin, PTH at outside lab [facility] was normal. She has residual osteoporosis on her DEXA performed in 07/2023 Plan is to consider could be given to using a pharmacologic agent for treatment of osteoporosis either by endocrinology or patient's primary care provider. Consider ratio could be given to the use of a bisphosphonate most likely intravenous considering patient's gastrointestinal issues or Prolia followed in 2- 3 years by bisphosphonate Coding Level of Care Code Est Pt Level 3 (31041) Diagnoses Hyperparathyroidism E21.3
[2024-09-26 10:35] VITALS: BP 100/66; PULSE 77; BMI 31.5
== END 2024-09-26 10:57 | disposition home or self-care (01) ==
PROVIDERS: PCP Internal Medicine; Visit Provider Internal Medicine Endocrinology, Diabetes & Metabolism
DX: E21.3 Hyperparathyroidism, unspecified (principal)
CPT/HCPCS: 99213

== ENCOUNTER 2024-10-02 10:13 | Outpatient (REF) | payer OTHER, SELFPAY ==
[2024-10-02 11:53] LABS: Albumin Level 4.1 g/dL (3.5-5.0); Anion Gap 14 (12-20); Blood Urea Nitrogen 14 mg/dL (9-16); Calcium 9.3 mg/dL (8.4-10.2); Carbon Dioxide 21 mmol/L (22-29); Chloride 111 mmol/L (96-108); Estimated Glomerular Filt Rate > 60; Glucose Fasting 99 mg/dL (60-99); Parathyroid Hormone Intact 109.9 pg/mL (8.7-77.1); Potassium 3.9 mmol/L (3.3-5.1); Sodium 142 mmol/L (135-145)
[2024-10-02 12:09] LABS: Vitamin D 25-OH Total 33.4 ng/mL (>30)
== END 2024-10-02 10:14 | disposition home or self-care (01) ==
LOC: HO.LAB 10:13
PROVIDERS: PCP Internal Medicine; Visit Provider Internal Medicine Endocrinology, Diabetes & Metabolism
DX: E21.3 Hyperparathyroidism, unspecified (principal); M81.0 Age-related osteoporosis without current pathological fracture
CPT/HCPCS: 36415; 80048; 82040; 82306; 83970

== ENCOUNTER 2024-10-03 13:38 | Outpatient (AMB) | payer OTHER, SELFPAY ==
--- NOTE | 2024-10-03 14:16 | AM.OFFVISNUR ---
Intake Visit Reasons: prolia Allergies No Known Allergies [No Known Allergies*] Allergy (Verified 09/26/24 10:36)
--- NOTE | 2024-10-03 14:17 | AM.OFFVISNUR ---
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 Tolerated procedure w/o issue. Pt educated on s/s to be aware of including redness, pain, rash, swelling to injection site. Pt informed that should she experience these symptom that she should seek immediate medical attention. Risk factors discussed with patient stating understanding. All questions answered to patient's satisfaction. Next appointment date and time given. Assessment & Plan Assessment & Plan Orders: Orders AMB Denosumab Injection Practice Supplied Today M81.0 - Age-related osteoporosis without current pathological fracture Medications: New Prolia (denosumab) 60 mg subcut ONCE 1 mL 0RF NS M81.0 - Age-related osteoporosis without current pathological fracture
== END 2024-10-03 14:26 | disposition home or self-care (01) ==
PROVIDERS: PCP Internal Medicine
DX: M81.0 Age-related osteoporosis without current pathological fracture (principal)

== ENCOUNTER → 2024-10-03 13:38 | Outpatient (BNVA) | payer OTHER, SELFPAY | PROVIDERS: PCP Internal Medicine | DX: M81.0 Age-related osteoporosis without current pathological fracture (principal) | CPT/HCPCS: 96372; J0897 ==

== ENCOUNTER 2024-10-28 10:26 | Outpatient (AMB) | payer OTHER, SELFPAY ==
--- NOTE | 2024-10-28 10:46 | AM.OFFVISNUR ---
Intake Visit Reasons: Hep B#2 Allergies No Known Allergies [No Known Allergies*] Allergy (Verified 09/26/24 10:36) Immunizations Engerix-B (PF) 20 mcg/mL intramuscular suspension Performing Provider: Chelsie Navas MD Performing Location: [facility] [place] G[facility] Services Administered by: Breana Johnston RN on 10/28/24 10:46 Dose Route Admin Location Dispensed Lot Number Expiration Date [facility] Reproduction Technician 1 mL IM Right Deltoid 1 mL [id number] 10/31/26 45708-480-10 ISpeak VIS Given Date VIS Provided VIS Publication Date 10/28/24 Single Vaccine 23 Eligibility Eligibility Date Funding Source Not [facility] Eligible 10/28/24 Private Assessment & Plan Assessment & Plan Orders: Orders Hepatitis B Adult Immunization Today Z23 - Encounter for immunization Medications: New Engerix-B (PF) (hepatitis B virus vacc.rec(PF)) 1 mL IM ONCE 1 mL 0RF NS Z23 - Encounter for immunization Coding Level of Care Code Established Pt Est Pt Level 1 (78357) Patient Type Established Medical Decision Making Straight Forward
== END 2024-10-28 10:47 | disposition home or self-care (01) ==
PROVIDERS: PCP Internal Medicine; Visit Provider Internal Medicine Gastroenterology
DX: Z23 Encounter for immunization (principal)

== ENCOUNTER → 2024-10-28 10:26 | Outpatient (BNVA) | payer OTHER, SELFPAY | PROVIDERS: PCP Internal Medicine; Visit Provider Internal Medicine Gastroenterology | DX: Z23 Encounter for immunization (principal) | CPT/HCPCS: 90471; 90746; 99211 ==

== ENCOUNTER 2025-01-10 12:31 | Outpatient (AMB) | payer OTHER, SELFPAY ==
--- NOTE | 2025-01-10 13:44 | AM.OFFWIN_ITS ---
Intake Vital Signs 01/10/25 13:48 Weight 189 lb BP 120/80 Blood Pressure Location Lt brachial Position Sitting Pulse 87 Pulse Source Pulse Oximeter Temp 99.4 F Temp Source Oral Pulse Oximetry (%) 98 Oxygen Delivery Method Room Air Intake Visit Reasons: EP Chills, sore throat, no taste, headache Intake Note: Patient here for chills,loss of taste, headaches which started yesterday. Patient Tobacco Use Status: Never used Tobacco Allergies No Known Allergies [No Known Allergies*] Allergy (Verified 01/10/25 13:49) Do you need a note to return to daycare/school/sports/work: No HPI EP Chills, sore throat, no taste, headache HPI Details Patient reports a one day history of headache, chills, sore throat, loss of taste, nasal congestion, body aches. She states that she was exposed to COVID positive contact recently. Has not taken anything. Denies any shortness of breath. Denies any GI symptoms. [facility] Medical History Partial small bowel obstruction History of small bowel obstruction Dyslipidemia Impaired fasting glucose History of COVID-19 GERD (gastroesophageal reflux disease) Morbid obesity Hyperparathyroidism Overactive bladder Upper back pain, chronic Large breasts Vitamin D deficiency Osteoporosis Postmenopause History of shingles Acquired hypothyroidism RLS (restless legs syndrome) Surgical History Hx of sigmoidoscopy Hx of reduction mammoplasty History of bowel resection History of esophagogastroduodenoscopy Hx of colonoscopy Hx of cholecystectomy Hx of tonsillectomy History of appendectomy H/O partial resection of colon Family History Father Lung cancer Mother Diabetes Hypertension Sister No problems noted. Mother Diabetes Paternal Grandmother Diabetes Father Lung cancer Paternal Uncle Lung cancer Social History Household Members: Family Housing: Apartment Are you a primary home health care respiratory therapist to a significant other at home: No Do you presently have visiting nurse or other home services: No Alcohol intake: never Patient Tobacco Use Status: Never used Tobacco e-Cigarette/Vaping Use: Never Used Second Hand Smoke Exposure: No Advance Directives Date on File: 05/31/22 service: No Current occupational status: unemployed and disabled Current occupation: [employer] Cognitive needs: No Hearing needs: No Vision needs: Yes Female Reproductive History Menstrual Age of Menarche: 12 Review of Systems Const All systems reviewed & are unremarkable except as noted in HPI and below Physical Exam Vital Signs: Last Vital Signs Temp 99.4 F 01/10/25 13:48 Pulse 87 01/10/25 13:48 BP 120/80 01/10/25 13:48 Pulse Ox 98 01/10/25 13:48 Oxygen Delivery Method Room Air 01/10/25 13:48 Const General: cooperative and ill appearing acutely Limitations: no limitations Resp Effort & Inspection: normal respiratory effort Auscultation: clear to auscultation bilaterally Cardio Palpation: normal PMI Rate: regular rate Rhythm: regular rhythm Skin General skin exam: no rashes or lesions noted Extrem General: Yes capillary refill normal and Yes no clubbing, cyanosis or edema Psych Appearance: grossly normal Mental Status: mental status grossly normal Speech and movement: Normal speech and movement present Assessment & Plan Assessment & Plan (1) Upper respiratory infection, viral: Code(s): J06.9 - Acute upper respiratory infection, unspecified Plan: Symptoms are consistent with viral upper respiratory illness. Close exposure to COVID recently. COVID/flu/RSV swab was obtained, and patient aware she will be notified of results once these are available. We discussed conservative measures, including rest, hydration, healthy food/vitamin intake, cold/flu medication [id number] as needed. If patient develops worsening symptoms or shortness of breath, she can go to the emergency department for evaluation. All questions were answered and patient verbalizes understanding and agrees to plan. Orders: Orders SARS-CoV2/FLU/RSV Today J06.9 - Acute upper respiratory infection, unspecified Coding Level of Care Code Est Pt Level 4 (93877) Diagnoses Upper respiratory infection, viral J06.9
[2025-01-10 13:48] VITALS: BP 120/80; PULSE 87; TEMP 37.4; O2SAT 98
== END 2025-01-10 14:24 | disposition home or self-care (01) ==
PROVIDERS: PCP Internal Medicine; Visit Provider Nurse Practitioner Family
DX: J06.9 Acute upper respiratory infection, unspecified (principal)

== ENCOUNTER 2025-01-10 12:31 | Outpatient (REF) | payer OTHER, SELFPAY ==
[2025-01-10 17:31] LABS: Influenza A PCR NEGATIVE (Negative); Influenza B PCR NEGATIVE (Negative); Resp Syncy Virus RNA Qual PCR NEGATIVE (Negative); SARS COV2 PCR INHOUSE POSITIVE (Negative)
== END 2025-01-10 12:32 | disposition home or self-care (01) ==
LOC: HO.LNP 12:31
PROVIDERS: PCP Internal Medicine; Visit Provider Nurse Practitioner Family
DX: J06.9 Acute upper respiratory infection, unspecified (principal)
CPT/HCPCS: 0241U; 99212

== ENCOUNTER 2025-03-12 08:50 | Outpatient (REF) | payer OTHER, SELFPAY ==
[2025-03-12 10:23] LABS: Anion Gap 14 (12-20); Blood Urea Nitrogen 20 mg/dL (9-16); Calcium 8.9 mg/dL (8.4-10.2); Carbon Dioxide 25 mmol/L (22-29); Chloride 108 mmol/L (96-108); Estimated Glomerular Filt Rate > 60; Glucose Random 100 mg/dL (60-115); Sodium 143 mmol/L (135-145)
== END 2025-03-12 08:51 | disposition home or self-care (01) ==
LOC: HO.LAB 08:50
PROVIDERS: PCP Internal Medicine; Visit Provider Internal Medicine Endocrinology, Diabetes & Metabolism
DX: M81.0 Age-related osteoporosis without current pathological fracture (principal)
CPT/HCPCS: 36415; 80048; 82040

== ENCOUNTER 2025-03-26 10:02 | Outpatient (AMB) | payer OTHER, SELFPAY ==
--- NOTE | 2025-03-26 10:06 | A.OFFVIS_ITS ---
Vital Signs 03/26/25 10:09 Height 5 ft 4.37 in Weight 186 lb 1.122 oz BMI 31.6 BP 136/68 Blood Pressure Location Lt brachial Position Sitting Pulse 72 Pulse Source Pulse Oximeter Pulse Oximetry (%) 95 Oxygen Delivery Method Room Air Intake Visit Reasons: f/u hyperparathyroid/osteoporosis/prolia injection Intake Note: Patient present today for Hyperparathyroidism and Osteoporosis follow up. 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 Accompanied by: Self / Same As Patient Allergies No Known Allergies (No Known Allergies*) Allergy (Verified 03/26/25 10:10) Medication List - Last Reconciled 03/26/25 by Brendon Boo MD calcium carbonate 600 mg PO BID cetirizine (Allergy Relief (cetirizine)) 10 mg PO DAILY PRN cholecalciferol (vitamin D3) 250 mcg PO MOFR@0900 90 days denosumab (Prolia) 60 mg subcut [id number] ferrous sulfate 325 mg PO DAILY levothyroxine 88 mcg PO QAM mesalamine ER (Pentasa) 1,000 mg PO QID mirabegron ER (Myrbetriq) 25 mg PO DAILY pantoprazole 40 mg PO DAILY HPI Comments Details: 64 YO Female with PMHx Crohn's disease, Osteoporosis and Hypothyroidism who is seen in F/U for the same.. First diagnosed in 2020 with her most recent BMD. Her prior BMD was completed at [facility] in the early and per her report revealed Osteopenia. After our initial visit we completed a full biochemical assessment which revealed elevated PTH levels. 03/15/2021 Calcium 9.0, PTH 96, Albumin 3.7, Vitamin D 39.4. 24 hour urine calcium was completely WNL. She had an US of the neck which revealed a L sided 1.9 cm hypoechoic lesion which possibly represents a parathyroid adenoma. We repeated labs more recently, and PTH was WNL with a low Vitamin D. 24 hour urine calcium was low. Labs repeated again still with Vitamin D below goal, and PTH elevated. She was started on Calcium supplement BID, and repeat labs revealed PTH had normalized. She did repeat her 24 hour urine collection, but this was an insufficient sample. Labs repeated again reveal Calcium and PTH WNL, and 24 hour urine collection was an adequate sample and WNL. Since that time labs have again been repeated, and PTH is elevated with Calcium WNL but Vitamin D low. She has never been treated for Osteoporosis. She does use protonix daily. Denies ever using anticoagulant, antiepileptic or glucocorticoid medication. Does weight bearing exercise 2-3 days per week in the form of walking or running, for 1 hour at a time. Fracture history: in her 30's she had a traumatic fracture of her arm and wrist after she fell on the stairs. 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 . Menopause was at age 51. Denies history of Kidney stones: Denies family history of Osteoporosis, but her sister did have a traumatic hip fracture. UTD on dental cleanings and sees dentist every 6 months. No planned upcoming dental work or extractions. She has full dentures. DXA dated 01/05/2021: FINDINGS: AP SPINE L1-L4: BMD 0.871 g/cm2, Z-score -2.2, T-score -2.6, osteoporosis. LEFT FEMUR, NECK: BMD 0.738 g/cm2, Z-score -1.5, T-score -2.2, osteopenia. LEFT FEMUR, TOTAL: BMD 0.779 g/cm2, Z-score -1.5, T-score -1.8, osteopenia. US Thyroid: 04/01/2021 Right Thyroid Lobe: 3.5 x 1.3 x 1.0 cm, volume 2.4 mL. Parenchyma: The gland echotexture is heterogeneous. Thyroid vascularity is normal. Left Thyroid Lobe: 4.0 x 1.0 x 1.0 cm, volume 2.1 mL. Parenchyma: The gland echotexture is heterogeneous. Thyroid vascularity is normal. Isthmus: 0.1 cm in maximum AP dimension. No focal thyroid nodule is seen. NODES: Left level 4 lymph node measuring 1.9 x 0.8 x 1.0 cm with normal architecture. Labs: Laboratory Tests 11/23/22 11/23/22 09:34 09:34 Sodium 142 Potassium 4.6 Creatinine 0.90 Estimated GFR > 60 25-OH Vitamin D Total 25.7 TSH 2.92 Free T4 1.21 PTH Intact 79 H Calcium (PTH Intact) 9.5 Recent PTH was found to be elevated on vitamin-D supplementation and calcium supplementation Dexa 08/16/23 FINDINGS: LEFT FEMUR, NECK: Current: BMD 0.723 g/cm2, Z-score -1.3, T-score -2.3, osteopenia. Baseline: BMD 0.738 g/cm2. LEFT FEMUR, TOTAL: Current: BMD 0.763 g/cm2, Z-score -1.3, T-score -1.9, osteopenia, 2.1% decrease from baseline (<5% change is not significant). Baseline: BMD 0.779 g/cm2. AP SPINE L1-L4: Current: BMD 0.829 g/cm2, Z-score -2.2, T-score -2.9, osteoporosis, 4.8% decrease from baseline (<5% change is not significant). Baseline: BMD 0.871 g/cm2. LEFT FOREARM RADIUS 33%: BMD 0.740 g/cm2, Z-score -0.5, T-score -1.6, osteopenia, 3.0% decrease from baseline (<5% change is not significant). Baseline: BMD 0.763 g/cm2. Repeat labs at [facility] ([facility]) showed normal calcium, PTH, 25 hydroxy vitamin-D. Received 1st Prolia injection 09/2024 and due for 2nd injection today. The patient is a 64-year-old female presenting with osteoporosis management. She is due for a Prolia injection today and has tolerated the previous dose well without any fractures since the last visit. The patient is compliant with her calcium and vitamin D supplementation, taking calcium twice daily and vitamin D twice weekly at a dose of 10,000 IU. The patient reports feeling very tired and has not had her thyroid levels checked in the past year. She has been advised to follow up with her primary care physician, Dr. Garner to have her thyroid levels assessed. The patient has been experiencing significant stress and pressure, which may be contributing to her symptoms of fatigue. - Calcium: Twice daily for osteoporosis - Vitamin D: 10,000 IU twice weekly for osteoporosis [facility] Medical History Partial small bowel obstruction History of small bowel obstruction Dyslipidemia Impaired fasting glucose History of COVID-19 GERD (gastroesophageal reflux disease) Morbid obesity Hyperparathyroidism Overactive bladder Upper back pain, chronic Large breasts Vitamin D deficiency Osteoporosis Postmenopause History of shingles Acquired hypothyroidism RLS (restless legs syndrome) Surgical History Hx of sigmoidoscopy Hx of reduction mammoplasty History of bowel resection History of esophagogastroduodenoscopy Hx of colonoscopy Hx of cholecystectomy Hx of tonsillectomy History of appendectomy H/O partial resection of colon Family History Father Lung cancer Mother Diabetes Hypertension Sister No problems noted. Mother Diabetes Paternal Grandmother Diabetes Father Lung cancer Paternal Uncle Lung cancer Social History Household Members: Family Housing: Apartment Are you a primary pediatric care coordinator to a significant other at home: No Do you presently have visiting nurse or other home services: No Alcohol intake: never Patient Tobacco Use Status: Never used Tobacco e-Cigarette/Vaping Use: Never Used Second Hand Smoke Exposure: No Advance Directives Date on File: 05/31/22 service: No Current occupational status: unemployed and disabled Current occupation: [email or web address] Cognitive needs: No Hearing needs: No Vision needs: Yes Female Reproductive History Menstrual Age of Menarche: 12 Assessment & Plan Assessment & Plan (1) Hyperparathyroidism: Code(s): E21.3 - Hyperparathyroidism, unspecified Category: Medical Plan: Recent PTH was found to be elevated with normal [id number] and calcium . Repeat calcium, albumin, PTH at outside lab [facility] was normal. She has residual osteoporosis on her DEXA performed in 07/2023 Plan is to proceed for 2nd Prolia injection. Would consider giving Prolia for total of 2-3 years proceeded by intravenous bisphosphonate like Reclast 1. Osteoporosis The patient is due for a Prolia injection today, which she has tolerated well in the past. She is compliant with calcium and vitamin D supplementation, which is crucial for managing her condition. Continued monitoring of bone density and fracture risk is recommended. She will receive a second dose of Prolia today 2. Hypothyroidism The patient reports fatigue and has not had her thyroid levels checked in the past year. She has been advised to follow up with her primary care physician to assess her thyroid function and adjust treatment as necessary. I discussed with the patient the importance of continuing her Prolia injections for osteoporosis management and ensuring compliance with calcium and vitamin D supplementation. We also talked about the need to follow up with her primary care physician to check her thyroid levels, given her symptoms of fatigue. I advised her to contact Dr. Garner to arrange for this assessment. The patient had an opportunity to ask questions regarding treatment plan. The patient expressed understanding and agreement with the above treatment plan. Patient was informed and verbally consented to the use of an ambient scribe for clinic note documentation during this visit. Coding Level of Care Code Est Pt Level 3 (99748) Diagnoses Hyperparathyroidism E21.3
[2025-03-26 10:09] VITALS: BP 136/68; PULSE 72; O2SAT 95; BMI 31.6
== END 2025-03-26 10:34 | disposition home or self-care (01) ==
LOC: HO.ENCR 10:03
PROVIDERS: PCP Internal Medicine; Visit Provider Internal Medicine Endocrinology, Diabetes & Metabolism
DX: E21.3 Hyperparathyroidism, unspecified (principal); M81.0 Age-related osteoporosis without current pathological fracture
CPT/HCPCS: 99213

== ENCOUNTER → 2025-03-26 10:02 | Outpatient (BNVA) | payer OTHER, SELFPAY | PROVIDERS: PCP Internal Medicine; Visit Provider Internal Medicine Endocrinology, Diabetes & Metabolism | DX: E21.3 Hyperparathyroidism, unspecified (principal); K50.90 Crohn's disease, unspecified, without complications; M81.0 Age-related osteoporosis without current pathological fracture; E03.9 Hypothyroidism, unspecified; E78.5 Hyperlipidemia, unspecified; K21.9 Gastro-esophageal reflux disease without esophagitis; E66.01 Morbid (severe) obesity due to excess calories; N32.81 Overactive bladder; E55.9 Vitamin D deficiency, unspecified; G25.81 Restless legs syndrome | CPT/HCPCS: 90471; 90746; 96372; 99211; 99212; J0897 ==

== ENCOUNTER 2025-03-26 10:42 | Outpatient (AMB) | payer OTHER, SELFPAY ==
--- NOTE | 2025-03-26 10:57 | AM.OFFVISNUR ---
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
== END 2025-03-26 10:58 | disposition home or self-care (01) ==
LOC: HO.HGI 10:43
PROVIDERS: PCP Internal Medicine; Visit Provider Internal Medicine Gastroenterology
DX: Z23 Encounter for immunization (principal)

== ENCOUNTER 2025-04-02 08:33 | Outpatient (REF) | payer OTHER, SELFPAY ==
[2025-04-02 11:18] LABS: Cholesterol 242 mg/dL (<200); HDL Cholesterol 56 mg/dL (>40); Iron 48 mcg/dL (30-160); Percent Iron Saturation 19 % (15-50); Total Iron Binding Capacity 257 mcg/dL (228-428); Triglycerides 198 mg/dL (<150); Unsaturated Iron Binding 209 ug/dL
[2025-04-02 11:19] LABS: Free T4 (Free Thyroxine) 1.11 ng/dL (0.71-1.85); Thyroid Stimulating Hormone 3.07 uIU/mL (0.32-4.0)
== END 2025-04-02 08:34 | disposition home or self-care (01) ==
LOC: HO.HMGCLDS 08:33
PROVIDERS: PCP Internal Medicine; Visit Provider Internal Medicine
DX: R73.01 Impaired fasting glucose (principal); E66.01 Morbid (severe) obesity due to excess calories; E78.5 Hyperlipidemia, unspecified; E03.9 Hypothyroidism, unspecified
CPT/HCPCS: 36415; 80061; 83540; 84439; 84443

== ENCOUNTER 2025-04-08 09:10 | Outpatient (AMB) | payer OTHER, SELFPAY ==
--- NOTE | 2025-04-08 09:14 | A.OFFPC_ITS ---
Vital Signs 04/08/25 09:18 Height 5 ft 4.37 in Weight 188 lb BMI 31.9 BP 120/80 Blood Pressure Location Lt brachial Position Sitting Respiration 16 Pulse 73 Pulse Source Pulse Oximeter Temp 97.7 F Temp Source Oral Pulse Oximetry (%) 98 Oxygen Delivery Method Room Air Intake Visit Reasons: Annual PE Intake Note: Pt here for annual PE . Last mammo 03/15/24 pt going 04/09/25 for mammo, Pap 11/10/20 ,Colonoscopy 07/02/21 Psychometrician Required: No Accompanied by: Self / Same As Patient Allergies No Known Allergies (No Known Allergies*) Allergy (Verified 04/08/25 10:25) Medication List - Last Reconciled 04/08/25 by Yuli Garner MD calcium carbonate 600 mg PO BID cholecalciferol (vitamin D3) 250 mcg PO MOFR@0900 90 days denosumab (Prolia) 60 mg subcut [id number] ferrous sulfate 325 mg PO DAILY hydroxyzine HCl 10 mg PO BEDTIME PRN levothyroxine 88 mcg PO QAM mesalamine ER (Pentasa) 1,000 mg PO QID mirabegron ER (Myrbetriq) 25 mg PO DAILY pantoprazole 40 mg PO DAILY Tobacco use date assessed: 04/08/25 Dental Screening Dental Screen Date: 04/08/25 Did you have a dental visit in the last 12 months?: Yes Did you have a dental problem in the last 6 months where you did not have access to dental care?: No Was dental information given to patient?: Patient has dentist HPI Annual PE HPI Details - The patient is a 64-year-old female pr esenting for her physical exam. - She reports feeling unusually tired and wanting to sleep for no apparent reason, which she attributes to a possible thyroid issue. - She has been experiencing sleep disturbances characterized by difficulty sleeping at night and having unusual dreams, leading to daytime fatigue and edginess. - The patient recently lost her brother, who on February 20 due to complications from pneumonia and lung cancer. - The patient has a history of hyperlipi demia, with recent lab results indicating elevated cholesterol levels. - She maintains a diet primarily consist ing of salads and reports no smoking or alcohol consumption. - Preventative care measures include ma mmo 03/15/24, has appointment for a repeat screening mammogram on 04/09/25, up-to-date with her cervical cancer screening, done by Dr. Arana last 11/10/20, with normal findings. She is also up-to-date with her screening Colonoscopy last done 07/02/21, due for recheck in 2030. [facility] Medical History Partial small bowel obstruction History of small bowel obstruction Dyslipidemia Impaired fasting glucose History of COVID-19 GERD (gastroesophageal reflux disease) Morbid obesity Hyperparathyroidism Overactive bladder Upper back pain, chronic Large breasts Vitamin D deficiency Osteoporosis Postmenopause History of shingles Acquired hypothyroidism RLS (restless legs syndrome) Surgical History Hx of sigmoidoscopy Hx of reduction mammoplasty History of bowel resection History of esophagogastroduodenoscopy Hx of colonoscopy Hx of cholecystectomy Hx of tonsillectomy History of appendectomy H/O partial resection of colon Family History Father Lung cancer Mother Diabetes Hypertension Sister No problems noted. Mother Diabetes Paternal Grandmother Diabetes Father Lung cancer Paternal Uncle Lung cancer Social History Household Members: Family Housing: Apartment Are you a primary healthcare technician to a significant other at home: No Do you presently have visiting nurse or other home services: No Alcohol intake: never Patient Tobacco Use Status: Never used Tobacco e-Cigarette/Vaping Use: Never Used Second Hand Smoke Exposure: No Advance Directives Date on File: 05/31/22 service: No Current occupational status: unemployed and disabled Current occupation: [employer] Cognitive needs: No Hearing needs: No Vision needs: Yes Female Reproductive History Menstrual Age of Menarche: 12 Questionnaire PHQ-9 Over the last 2 weeks, how often have you been bothered by any of the following problems? 1. Little interest or pleasure in doing things: not at all 2. Feeling down, depressed, or hopeless: not at all 3. Trouble falling or staying asleep, or sleeping too much: not at all 4. Feeling tired or having little energy: not at all 5. Poor appetite or overeating: not at all 6. Feeling bad about yourself - or that you are a failure or have let yourself or your family down: not at all 7. Trouble concentrating on things, such as reading the newspaper or watching television: not at all 8. Moving or speaking so slowly that other people could have noticed. Or the opposite - being so fidgety or restless that you have been moving around a lot more than usual: not at all 9. Thoughts that you would be better off or of hurting yourself in some way: not at all Total score: 0 Depression Screening Interpretation: Negative Depression Screening Done: Yes 72404 - PHQ-9 Billing: Yes Source: Developed by Drs. Brendon Muñoz, Kasey Becker, Raul Sweet and colleagues, with an educational bakari from [email or web address]. Thrive Questionnaire Date Thrive assessed: 04/08/25 THRIVE Score: 0 NICOLE-7 AMB Questionnaire NICOLE-7 Date NICOLE - 7 assessed: 04/08/25 Feeling nervous, anxious, or on edge: 0 = Not at all Not being able to stop or control worryin = Not at all Worrying too much about different things: 0 = Not at all Trouble relaxin = Not at all Being so restless that it is hard to sit still: 0 = Not at all Becoming easily annoyed or irritable: 0 = Not at all Feeling afraid as if something awful might happen: 0 = Not at all Total NICOLE-7 score (0-4 normal; 5-9 mild; 10-14 moderate; 15-21 severe): 0 Source: Developed by Drs. Brendon Muñoz, Raul Huynh and colleagues, with an educational bakari from [email or web address]. NICOLE-7 Assessment Billing NICOLE-7 Assessment Tool: NICOLE-7 Assessment 58535 Review of Systems Const Reports as per HPI Eyes Denies change in vision ENT Reports no additional complaints Card Denies chest pain, Denies chest pain with activity and Denies irregular heart rhythm Resp Denies cough and Denies wheezing GI Denies abdominal pain, Denies melena, Denies bloating, Denies hematochezia, Denies change in bowel habits and Denies heartburn Reports no additional complaints Musc Reports no additional complaints Skin/Breast Denies rash Neuro Denies Abnormal speech present Psych Reports no additional complaints Endo Reports no additional complaints Domenic/Lymph Denies easy bleeding Aller/Immun Denies wheezing Physical exam (Primary Care) Vital Signs: Last Vital Signs Temp 97.7 F 04/08/25 09:18 Pulse 73 04/08/25 09:18 Resp 16 04/08/25 09:18 BP 120/80 04/08/25 09:18 Pulse Ox 98 04/08/25 09:18 Oxygen Delivery Method Room Air 04/08/25 09:18 BMI result Body Mass Index 31.9 Tobacco/Smoking Status: Tobacco use Status Tobacco use date assessed 04/08/25 04/08/25 09:19 Patient Tobacco Use Status Never used Tobacco 04/08/25 09:14 e-Cigarette/Vaping Use Never Used 04/08/25 09:14 PHQ-9: PHQ-9 Score PHQ-9: Total score 0 04/08/25 10:45 Depression Screening Interpretation: Negative Thrive Assessment: Date of Thrive Assessment Date Thrive assessed 08/18/24 04/08/25 09:14 Const General: no acute distress Nutritional Appearance: obese Orientation/consciousness: patient oriented x3 HENMT Mouth: Normal oral and palatal mucosa present, oropharynx normal and moist mucous membranes Eyes Pupils: Equal, round and reactive pupils present EOM: EOMs intact bilaterally Neck Neck: Yes full ROM, Yes no lymphadenopathy and Yes supple Resp Effort & Inspection: normal respiratory effort and able to speak in complete sentences Auscultation: clear to auscultation bilaterally Cardio Other: S1-S2 present regular rate and rhythm GI Inspection: Yes obesity Palpation (GI): Soft to palpation, no guarding and no masses Auscultation: normal bowel sounds General: Yes no CVA tenderness Back/Spine/Pelvis Back: no CVA tenderness, No sacral edema and No ecchymosis Skin General skin exam: no rashes or lesions noted Neuro General: patient oriented x3, gait normal, moves all extremities, no focal motor deficits and normal sensation to monofilament Cranial nerves: Yes Equal, round and reactive pupils present Speech: No Abnormal speech present Extrem General: Yes full ROM, Yes no joint enlargement, Yes no clubbing, cyanosis or edema, Yes no calf tenderness and Yes normal gait Results Reviewed Results Reviewed: Name: Meredith Bravo Age/Sex: 64/F : 1960 Unit#: [id number] Attend Dr: Yuli Garner MD Re04/02/25 Status: DEP REF [id number] Disch: SPEC : [id number] JOSE: 04/02/25 STATUS: COMP REQ : [id number] RECD: 04/02/25-[address]: Yuli Garner MD COMP: 04/02/25 ENTERED: 04/02/[address] [facility] [address]: ORDERED: IRON PROF, Lipid Panel, Free T4, TSH Test Result Flag Reference Iron 48 30-160 mcg/dL TIBC 257 228-428 mcg/dL Saturation 19 15-50 % UIBC 209 ug/dL Triglyceride 198 H <150 mg/dL Desirable Triglyceride: less than 150 mg/dL Borderline High Triglyceride 150-199 mg/dL High Triglyceride: 200-499 mg/dL Very High Triglyceride: greater than or equal to 5OO mg/dL Cholesterol 242 H <200 mg/dL Desirable Cholesterol: less than 200 mg/dL Borderline High Cholesterol: 200-239 mg/dL High Cholesterol: greater than 239 mg/dL LDL Calculated 147 H <100 mg/dL Desirable LDL: less than 100 mg/dL Near Optimal/Above Optimal LDL: 110-129 mg/dL Borderline High LDL: 130-159 mg/dL High LDL: 160-189 mg/dL Very High LDL: greater than or equal to 190 mg/dL HDL 56 >40 mg/dL Desirable HDL: greater than 40 mg/dL Note: This HDL assay may give artificially low results in patients with liver disease. Free T4 1.11 0.71-1.85 ng/dL TSH 3rd Gen. 3.07 0.32-4.0 uIU/mL Note: A sustained TSH level above 2.5 uIU/mL may warrant further investigation. TSH 3rd Generation ([facility]) Name: Meredith Bravo Age/Sex: 64/F : 1960 Unit#: [id number] Attend Dr: Brendon Boo MD Re03/12/25 Status: DEP REF Location: .LAB Disch: SPEC : [id number] JOSE: 03/12/25 STATUS: COMP REQ : [id number] RECD: 03/12/[address] [facility] DR: Brendon Boo MD COMP: 03/12/25 ENTERED: 03/12/[address] [facility] [address]: Yuli Garner MD ORDERED: BMP, Alb Test Result Flag Reference Sodium 143 135-145 mmol/L Potassium 4.0 3.3-5.1 mmol/L CL 108 96-108 mmol/L CO2 25 22-29 mmol/L Gap 14 12-20 BUN 20 H 9-16 mg/dL Creat 0.93 0.5-1.4 mg/dL eGFR > 60 Chronic Kidney Disease: Estimated GFR < 60 mL/min/1.73m2 Severe Kidney Disease: Estimated GFR < 15 mL/min/1.73m2 Glucose, Random 100 60-115 mg/dL CA 8.9 8.4-10.2 mg/dL Alb 4.0 3.5-5.0 g/dL Coding Level of Care Code Est Pt Prev Care 40-64y(98965) Diagnoses Annual visit for general adult medical examination with abnormal findings Z00. Dyslipidemia E78.5 Impaired fasting glucose R73.01 Acquired hypothyroidism E03.9 Age-related osteoporosis without current pathological fracture M81.0 Osteoporosis type: age-related Presence of current pathological fracture: without current pathological fracture Morbid obesity E66.01 Gastroesophageal reflux disease without esophagitis K21.9 Esophagitis presence: without esophagitis Crohn's disease K50.019 Digestive disease complication type: unspecified complication Gastrointestinal tract location: small intestine Overactive bladder N32.81 Additional Codes NICOLE-7 Assessment Billing - NICOLE-7 Assessment Tool: NICOLE-7 Assessment 28262 ([id number]) PHQ-9 - 39549 - PHQ-9 Billing: Yes ([id number]) Assessment & Plan Assessment & Plan (1) Annual visit for general adult medical examination with abnormal findings: Code(s): Z00.01 - Encounter for general adult medical examination with abnormal findings (2) Dyslipidemia: Code(s): E78.5 - Hyperlipidemia, unspecified Category: Medical (3) Impaired fasting glucose: Code(s): R73.01 - Impaired fasting glucose Category: Medical (4) Acquired hypothyroidism: Code(s): E03.9 - Hypothyroidism, unspecified Category: Medical (5) Osteoporosis: Code(s): M81.0 - Age-related osteoporosis without current pathological fracture Category: Medical Qualifiers: Osteoporosis type: age-related Presence of current pathological fracture: without current pathological fracture Qualified Code(s): M81.0 - Age- related osteoporosis without current pathological fracture (6) Morbid obesity: Code(s): E66.01 - Morbid (severe) obesity due to excess calories Category: Medical (7) GERD (gastroesophageal reflux disease): Code(s): K21.9 - Gastro-esophageal reflux disease without esophagitis Category: Medical Qualifiers: Esophagitis presence: without esophagitis Qualified Code(s): K21.9 - Gastro-esophageal reflux disease without esophagitis (8) Crohn's disease: Code(s): K50.90 - Crohn's disease, unspecified, without complications Category: Medical Qualifiers: Digestive disease complication type: unspecified complication Gastrointestinal tract location: small intestine Qualified Code(s): K50.019 - Crohn's disease of small intestine with unspecified complications (9) Overactive bladder: Code(s): N32.81 - Overactive bladder Category: Medical Plan The patient will begin hydroxyzine to manage sleep disturbances and anxiety related to grief, taking it at night as needed. A referral to a academic success coordinator is advised to address hyperlipidemia, with dietary modifications to manage cholesterol levels. The patient is encouraged to continue physical activities like swimming to support mental health. Preventative care includes scheduled mammogram, Pap smear, and colonoscopy appointments for comprehensive health maintenance. Patient was informed and verbally consented to the use of an ambient scribe for clinic note documentation during this visit. Orders: Orders Lipid Panel 08/18/25 E03.9 - Hypothyroidism, unspecified, E66.01 - Morbid (severe) obesity due to excess calories, E78.5 - Hyperlipidemia, unspecified, K21.9 - Gastro-esophageal reflux disease without esophagitis, K50.019 - Crohn's disease of small intestine with unspecified complications, M81.0 - Age-related osteoporosis without current pathological fracture, N32.81 - Overactive bladder, R73.01 - Impaired fasting glucose, Z00.01 - Encounter for general adult medical examination with abnormal findings Free T4 (Free Thyroxine) 08/18/25 E03.9 - Hypothyroidism, unspecified, E66.01 - Morbid (severe) obesity due to excess calories, E78.5 - Hyperlipidemia, unspecified, K21.9 - Gastro-esophageal reflux disease without esophagitis, K50.019 - Crohn's disease of small intestine with unspecified complications, M81.0 - Age-related osteoporosis without current pathological fracture, N32.81 - Overactive bladder, R73.01 - Impaired fasting glucose, Z00.01 - Encounter for general adult medical examination with abnormal findings Thyroid Stimulating Hormone 08/18/25 E03.9 - Hypothyroidism, unspecified, E66.01 - Morbid (severe) obesity due to excess calories, E78.5 - Hyperlipidemia, unspecified, K21.9 - Gastro-esophageal reflux disease without esophagitis, K50.019 - Crohn's disease of small intestine with unspecified complications, M81.0 - Age-related osteoporosis without current pathological fracture, N32.81 - Overactive bladder, R73.01 - Impaired fasting glucose, Z00.01 - Encounter for general adult medical examination with abnormal findings Glucose Fasting 08/18/25 E03.9 - Hypothyroidism, unspecified, E66.01 - Morbid (severe) obesity due to excess calories, E78.5 - Hyperlipidemia, unspecified, K21.9 - Gastro-esophageal reflux disease without esophagitis, K50.019 - Crohn's disease of small intestine with unspecified complications, M81.0 - Age-related osteoporosis without current pathological fracture, N32.81 - Overactive bladder, R73.01 - Impaired fasting glucose, Z00.01 - Encounter for general adult medical examination with abnormal findings Medications: New hydroxyzine HCl 10 mg PO BEDTIME PRN 14 tabs 0RF anxiety/ difficulty sleeping
[2025-04-08 09:18] VITALS: BP 120/80; PULSE 73; RESP 16; TEMP 36.5; O2SAT 98; BMI 31.9
== END 2025-04-08 10:48 | disposition home or self-care (01) ==
LOC: HO.HMCC 09:11
PROVIDERS: PCP Internal Medicine; Visit Provider Internal Medicine
DX: Z00.01 Encounter for general adult medical examination with abnormal findings (principal); E66.01 Morbid (severe) obesity due to excess calories; Z68.31 Body mass index [BMI] 31.0-31.9, adult; K50.019 Crohn's disease of small intestine with unspecified complications; E78.5 Hyperlipidemia, unspecified; R73.01 Impaired fasting glucose; E03.9 Hypothyroidism, unspecified; M81.0 Age-related osteoporosis without current pathological fracture; K21.9 Gastro-esophageal reflux disease without esophagitis; N32.81 Overactive bladder

== ENCOUNTER → 2025-04-08 09:10 | Outpatient (BNVA) | payer OTHER, SELFPAY | PROVIDERS: PCP Internal Medicine; Visit Provider Internal Medicine | DX: Z00.01 Encounter for general adult medical examination with abnormal findings (principal); R53.83 Other fatigue; E78.5 Hyperlipidemia, unspecified; R73.01 Impaired fasting glucose; E03.9 Hypothyroidism, unspecified; M81.0 Age-related osteoporosis without current pathological fracture; E66.01 Morbid (severe) obesity due to excess calories; K21.9 Gastro-esophageal reflux disease without esophagitis; K50.019 Crohn's disease of small intestine with unspecified complications; N32.81 Overactive bladder; Z68.31 Body mass index [BMI] 31.0-31.9, adult | CPT/HCPCS: 96127; 99396 ==

== ENCOUNTER 2025-04-09 08:46 | Outpatient (REF) | payer OTHER, SELFPAY ==
--- NOTE | ~2025-04-09 | MM_ITS ---
EXAMINATION: MM SCREENING DIGITAL BREAST TOMOSYNTHESIS, BILATERAL CLINICAL INFORMATION: Screening. Asymptomatic. COMPARISON: Comparison made to multiple prior, most recent March 15, 2024, and most remote October 27, 2017. TECHNIQUE: Digital breast tomosynthesis is performed in both the craniocaudal and mediolateral oblique views along with computer-aided detection (CAD). Synthesized 2D images are generated from the tomosynthesis. FINDINGS: BREAST COMPOSITION: There are scattered areas of fibroglandular density (ACR BI-RADS breast composition Category b). BILATERAL BREASTS: Status post bilateral reduction mammoplasty. No significant masses, suspicious calcifications or other abnormalities are seen in either breast. MM/MM tomosynthesis screening BI IMPRESSION: BILATERAL BREASTS: Benign, no mammographic evidence of malignancy. Normal interval follow-up is recommended in 12 months. ASSESSMENT: BI-RADS 2 - Benign Findings RECOMMENDATION: Routine annual mammography screening. FOLLOW-UP: 1 year F/U This examination should not preclude the clinical evaluation of a suspicious palpable abnormality. This patient's information was entered into a reminder system with a target due date for their next mammogram. Electronically signed by: Ana Kelley MD 04/15/2025 05:22 PM EDT
== END 2025-04-09 08:47 | disposition home or self-care (01) ==
LOC: HO.MAMMO 08:46
PROVIDERS: Visit Provider Internal Medicine
DX: Z12.31 Encounter for screening mammogram for malignant neoplasm of breast (principal)
CPT/HCPCS: 77063; 77067

== ENCOUNTER → 2025-04-09 09:15 | Outpatient (BNV) | payer OTHER, SELFPAY | PROVIDERS: Visit Provider Radiology Body Imaging | DX: Z12.31 Encounter for screening mammogram for malignant neoplasm of breast (principal) | CPT/HCPCS: 77063; 77067 ==

== ENCOUNTER 2025-05-01 10:51 | Outpatient (AMB) | payer OTHER, SELFPAY ==
--- NOTE | 2025-05-01 10:52 | MHC.OFFVIS ---
Vital Signs 05/01/25 10:55 Height 5 ft 4.37 in Weight 185 lb 3.013 oz BMI 31.4 BP 134/83 Blood Pressure Location Lt brachial Position Sitting Pulse 76 Intake Visit Reasons: follow up/infusion discuss Intake Note: Meredith presents in the office as a follow up. CC: She states that she was having constipation a couple weeks ago but it has gotten better. 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: No Allergies No Known Allergies (No Known Allergies*) Allergy (Verified 05/01/25 10:56) Medication List - Last Reconciled 05/01/25 by Chelsie Navas MD betamethasone dipropionate 0.05% topical calcium carbonate 600 mg PO BID cholecalciferol (vitamin D3) 250 mcg PO MOFR@0900 90 days denosumab (Prolia) 60 mg subcut [id number] doxycycline monohydrate 100 mg PO BID ferrous sulfate 325 mg PO DAILY hydroxyzine HCl 10 mg PO BEDTIME PRN levothyroxine 88 mcg PO QAM pantoprazole 40 mg PO DAILY prednisolone acetate 1% 1 drp ophthalmic-Right QID HPI HPI follow up/infusion discuss: Details: GI CLINIC VISIT FOR THIS 64-YEAR-OLD FEMALE WITH GERD, OSTEOPOROSIS, HYPOTHYROIDISM, HYPERPARATHYROIDISM HERE FOR FOLLOW-UP OF CROHN'S DISEASE. Patient has been followed by Dr. Jordan since 2013. Pt was hospitalized from 08/17/24 to 08/29/24 She was treated with IV steroids followed by PO prednisone taper. IBD SUMMARY YEAR OF DIAGNOSIS:? 2000 DISEASE EXTENT:Colon and small intestines LAST FLEXIBLE SIGMOIDOSCOPY:11/2023 as noted above NEXT COLON DUE: 11/2025 EXTRAINTESTINAL MANIFESTATIONS: Denies skin rash, joint pains or eye pain GI SURGERY:? Colon resection 2000 - subtotal colectomy. PAST TREATMENTS: Pentasa 1 gram 4 times daily, Senna for constipation, Prednisone taper, Humira CURRENT THERAPY: Entyvio? VACCINATIONS: Flu shot:? Gets Flu shot every year. Hep A/B serology /vaccination:?competed Hep B vaccination TODAY'S VISIT: CC: She states that she was having constipation a couple weeks ago but it has gotten better. I have been having a hard time - feels she needs to go and keeps pushing and it gets stuck. Feels infusions are working - next appt on 05/29/25 (7 weeks since the last infusion) Having a BM every day. Unsure what caused the cons tipation, She is changing her diet - fibre diet Tried taking the enema and is not helpful Takes Miralax if she has not gone to the bathroom in a few days (every few months) PAST VISITS: Did not take the steroids Not going to the bathroom regularly - has a BM every other day or every 2 days with adequate evacuation Was having BMs twice a day prior to hospitalization. Eating a lot of fibre Denies feeling bloated like she was in the hospital. Taking iron once a day - can feels a little dizzy climbing stairs Feels she is wobbly Continues to feel bloated and has been eating less Had a good BM last night. Sometimes she feels she has to push. Stool are darker since she started taking iron. PAST VISITS: CC; Pt recently started on humira following nurse instruction. Pt also had lab work completed that was ordered at their last visit. Pt reports that they have had slight improvements in their sx since their last visit. However, they do feel that they are still experiencing their chronic sx, particularly the bloating. Pt denies any difficulties with the humira injections to this point. Took her 1st Humira injection on 03/02/24 and will be taking the 2nd injection on 03/16/24 Discharged home on 01/22/24 on a prednisone taper. Feels weak with intermittent dizziness and does not feel herself Prescription for prednisone was ? miswrittent and she has been taking 1 tab daily and to increase to 2 tab on week 2 and then 3 tab on week 3 Sitting up all the time - does not want to lay down Flex sig and biopsy results reviewed Sometimes I get flared up Has been taking more salads Can have pain and feels bloated. Tries to go and stool feels stuck at the end and unable to expell Takes Miralax prn if she is bloated and stool gets stuck - once every two weeks. Denies cough and does'nt think she has a fever. Having diarrhea - 3 BMs yesterday and twice today Diarrhea has improved since hospitalization and denies any blood in the stool PAST VISITS: She was advised to take Miralax once a week. Scheduled for breast reduction on 07/20/23 and unable to lie on her side for 8 weeks. She would like to reschedule to spring. Sometimes I cant go and sometimes it hurts to have a BM Noted blood in the stools last few days since she was pushing too hard and straining to go Taking Pentasa 4 times a day. Has a powder at home and has not been using it. Had an episode of nausea, vomiting and diarrhea a few weeks ago which lasted 24 hrs. She is doing well now. Had dark stools after she has spinach and broccoli. Lab and stool tests were reviewed - CRP slightly elevated. Planning to travel to [place] with her niece in January Going to [place] in March. Fecal calprotectin were normal. Bloating has resolved. Going normal with 1-3 times a day with passage of normal stools Cold sweats have resolved - thinks it was related to COVID infection. Had her 2nd Booster for COVID a few months Feels she has an infection. Intermittent cold sweats. Constantly going to the bathroom to urinate. Diarrhea is not as bad as while she was in the hospital. BMs are dark (blackish) Has been having a few loose pudding like BMs per day. Concerned about recurrent CMV infection. Upset since her sister with PMR in Nov 07, 2021. An aunt and sister as well Has to go to [place] in January to help her aunt. Going to the bathroom regularly. Once in a great while, she can see some blood (a little dot) Can have some abdominal pain - when she was very stressed and not eating right. Has been very stressed. Has been doing well since she had the subtotal colectomy without recurrent SBO. Has been taking the Pentasa 1 gram 4 times a day for the past several yrs. Continues to have heartburn - comes on all of a sudden - mostly at night. Takes Senna if she does not have a BM for a day and is able to go the next morning. Patient denies major cardiac or pulmonary problems, loud snoring or sleep apnea. Denies problems with anesthesia in the past. Denies being on chronic anticoagulation. Patient denies known family history of other GI malignancies. Sister had cancer in one of the polyps and had surgery and is doing fine now. IMAGING STUDIES:? 05/28/[address] SCAN SHOWED: Suspect partial colectomy. Fluid throughout mildly dilated large and small bowel as well as within the rectal vault. Findings suggest hypersecretion and mild ileus. ? Approximately 1 cm L4 sclerotic lesion, not otherwise characterized. No other sclerotic or lytic bony lesion identified. In the absence of known or suspected malignancy elsewhere (for example, breast cancer), the finding probably represents a bone island. Recommend clinical correlation. 05/[address] SCAN SHOWED:Status post subtotal colectomy.? Multiple dilated loops of small and large bowel with slight increased prominence and proximal loops of small bowel.? There was several air-fluid levels.? ENDOSCOPIC STUDIES: 11/20/23 FLEX SIG SHOWED: Terminal Ileum: Distal 10 cms was examined - normal mucosa - random biopsies were obtained. Multiple 1-2 cms ulcers at the ileo-colic anastomosis - multiple biopsies were obtained.? Sigmoid Colon:? Decreased vascularity due to inactive Crohn's disease in the colon - four quadrant biopsies were obtained. No polyps were detected. Plan: Repeat flexible sigmoidoscopy interval based on path results - in 2 - 3 years if no dysplasia on colon biopsies. BIOPSIES SHOWED: A. Terminal ileum, biopsy: Terminal ileal mucosa within normal limits. B. Anastomotic ulcer, biopsy: Ileocolonic mucosa with patchy active inflammation and fragment of ulcer material. C. Colon, sigmoid, biopsy: Colonic mucosa within normal limits. D. Rectum, biopsy: Rectal mucosa within normal limits. Comment: No dysplasia or granulomata are seen 07/02/21 SIGMOIDOSCOPY SHOWED:Focal 2-4 cms area of ulcerations just proximal to the ileo-colic anastomosis - multiple biopsies were obtained.? Normal small bowel mucosa proximally. No polyps were detected. Decreased vascularity due to inactive Crohn's disease in the colon - surveillance biopsies were obtained. Plan:? Repeat Colonoscopy interval based on path results - in 2 years if no dysplasia on colon biopsies. BIOPSIES SHOWED: A.? Terminal ileum, biopsy:? Ileocolonic mucosa with mild crypt disarray; otherwise within normal limits. B.? Colon, 25 cm, biopsy:? Colonic mucosa within normal limits. C.? Colon, 15 cm, biopsy:? Colonic mucosa within normal limits. D.? Colon, 5 cm, biopsy:? Colonic mucosa within normal limits. COMMENT:? No dysplasia or granulomata are seen. 05/2018 FLEXIBLE SIGMOIDOSCOPY SHOWED:No polyps seen.Dilated small bowel with scattered 1 -1.5 cms ulcers througout - biopsies were obtained for histology and viral cultures. Significant amounts of stool not seen in the small intestine. Ileo-colic anastomosis at 35 cms. Circumferential ulcers with cobblestone appearance - multiple biopsies were obtained. Colonoscope passed easily through the anastomosis and no obstruction noted. Endoscopic appearance suggestive of Crohn's disease - other possibilities include CMV infection or ischemic ulcers related to past surgery/ small bowel dilation. Plan: Await pathology results. Resume a clear liquid diet as tolerated until biopsy results are available. Repeat Colonoscopy interval based on path results. BIOPSIES SHOWED: A.? SMALL BOWEL ULCER, BIOPSIES:? FRAGMENTS OF SMALL INTESTINAL MUCOSA WITH ACTIVE ILEITIS AND ULCERATION WITH RARE CYTOMEGALOVIRUS INCLUSIONS (SEE NOTE). B.? COLON, ULCER, BIOPSIES:? FRAGMENTS OF SMALL INTESTINAL AND COLONIC MUCOSA AND GRANULATION TISSUE WITH MILD CHRONIC ACTIVE COLITIS (SEE NOTE). C.? RECTUM, BIOPSIES:? FRAGMENTS OF HYPERPLASTIC COLONIC MUCOSA. NOTE:? THERE IS CRYPT ARCHITECTURAL DISTORTION, GLANDULAR BUDDING AND SUBMUCOSAL MIXED INFLAMMATORY INFILTRATES.? THESE FINDINGS MAY BE DUE TO THE CMV INFECTION, BUT THERE MAY BE UNDERLYING CROHN'S DISEASE OR ULCERATIVE COLITIS.? RECOMMEND TREATING CMV INFECTION AND FOLLOW-UP ENDOSCOPY WITH BIOPSIES TO RULE OUT INFLAMMATORY BOWL DISEASe PFSH Medical History Partial small bowel obstruction History of small bowel obstruction Dyslipidemia Impaired fasting glucose History of COVID-19 GERD (gastroesophageal reflux disease) Morbid obesity Hyperparathyroidism Overactive bladder Upper back pain, chronic Large breasts Vitamin D deficiency Osteoporosis Postmenopause History of shingles Acquired hypothyroidism RLS (restless legs syndrome) Surgical History Hx of sigmoidoscopy Hx of reduction mammoplasty History of bowel resection History of esophagogastroduodenoscopy Hx of colonoscopy Hx of cholecystectomy Hx of tonsillectomy History of appendectomy H/O partial resection of colon Family History Father Lung cancer Mother Diabetes Hypertension Sister No problems noted. Mother Diabetes Paternal Grandmother Diabetes Father Lung cancer Paternal Uncle Lung cancer Social History Household Members: Family Housing: Apartment Are you a primary health care liaison to a significant other at home: No Do you presently have visiting nurse or other home services: No Alcohol intake: never Patient Tobacco Use Status: Never used Tobacco e-Cigarette/Vaping Use: Never Used Second Hand Smoke Exposure: No Advance Directives Date on File: 05/31/22 service: No Current occupational status: unemployed and disabled Current occupation: [employer] Cognitive needs: No Hearing needs: No Vision needs: Yes Female Reproductive History Menstrual Age of Menarche: 12 Review of Systems Const All systems reviewed & are unremarkable except as noted in HPI and below Physical Exam Vital Signs: Last Vital Signs Pulse 76 05/01/25 10:55 BP 134/83 05/01/25 10:55 BMI result Body Mass Index 31.4 Const General: healthy appearing and no acute distress Nutritional Appearance: obese Orientation/consciousness: patient oriented x3 Limitations: no limitations HEENT Head: Yes normal to inspection Ears: hearing grossly normal bilaterally Eyes Sclerae: sclerae normal Pupils: Equal, round and reactive pupils present Neck Neck: Yes normal visual inspection Chest Chest palpation & inspection: normal inspection of the chest Resp Effort & Inspection: normal respiratory effort Auscultation: clear to auscultation bilaterally Cardio Palpation: normal PMI Rate: regular rate Rhythm: regular rhythm Heart sounds: S1 normal heart sound present, S2 normal heart sound present and no murmurs GI Inspection: Yes scar (midline scar of past colon surgery) Palpation (GI): Soft to palpation, nontender and No hepatosplenomegaly present Auscultation: normal bowel sounds Rectal Exam - Female: deferred Skin General skin exam: no rashes or lesions noted Neuro General: patient oriented x3, gait normal and moves all extremities Cranial nerves: Yes Equal, round and reactive pupils present Psych Appearance: grossly normal Mental Status: mental status grossly normal Assessment & Plan Assessment & Plan (1) GERD (gastroesophageal reflux disease): Code(s): K21.9 - Gastro-esophageal reflux disease without esophagitis Category: Medical Qualifiers: Esophagitis presence: without esophagitis Qualified Code(s): K21.9 - Gastro-esophageal reflux disease without esophagitis (2) Crohn's disease: Code(s): K50.90 - Crohn's disease, unspecified, without complications Category: Medical Qualifiers: Digestive disease complication type: unspecified complication Gastrointestinal tract location: small intestine Qualified Code(s): K50.019 - Crohn's disease of small intestine with unspecified complications (3) Chronic constipation: Code(s): K59.09 - Other constipation Category: Medical Plan 64 YF with Crohn's disease involving the small bowel and colon and is status post subtotal colectomy. Patient has been followed by Dr. Jordan since 2012. 05/2018 Flex Sig showed?Dilated small bowel with scattered 1 -1.5 cms ulcers througout - biopsies were positive for CMV inclusion and patient was treated for CMV. Ileo-colic anastomosis at 35 cms. Circumferential ulcers with cobblestone appearance - multiple biopsies were obtained 06/2021 Flexible Sig was performed and showed: Focal 2-4 cms area of ulcerations just proximal to the ileo-colic anastomosis - multiple biopsies were obtained.? Normal small bowel mucosa proximally. No polyps were detected. Decreased vascularity due to inactive Crohn's disease in the colon - surveillance biopsies were obtained. Plan:? Repeat Colonoscopy interval based on path results - in 2 years if no dysplasia on colon biopsies (due 06/2023) Patient's symptoms are well controlled with Pentasa 1 g 4 times daily. 07/2021 Pt was started on azathioprine due to focal area of ulcerations in the TI proximal to the anastomosis. Pt was hospitalized from 05/28 to 06/03/22 at [facility] [place] COVID infection associated with diarrhea She was treated with Flagyl and Levqaquin for 7 days. Pt had postprandial abd discomfort with bloating after her hospitalization which has resolved. Pt was advised to go on a FODMAP diet for 6 weeks CRP slightly elevated at 0.61 and stool calprotectin was normal. 06/29/23 Scheduled for breast reduction on 07/20/23 and unable to lie on her side for 8 weeks. Meredith would like to reschedule her colonoscopy from 08/28/23 to spring. 12/07/23 Sometimes I get flared up Can have pain and feels bloated. Tries to go and stool feels stuck at the end and unable to expell Takes Miralax prn if she is bloated and stool gets stuck - once every two weeks. She was advised to take Miralax once a week. Repeat Flex Sig in 2-3 years for CD surveillance Pt advised to take Miralax 2-3 times a week for bloating and constipation 09/26/24 Not going to the bathroom regularly - has a BM every other day or every 2 days with adequate evacuation Was having BMs twice a day prior to hospitalization. Eating a lot of fibre and denies feeling bloated like she was in the hospital. Pt will be started on Entyvio 300mg IV at week 0, 2, and 6 and then every 8 weeks for maintenance 05/01/25 advised to take Miralax 1-2 times a week for constipation Ref sent to [facility] [place] for anorectal manometry - may elect to cancel if symptoms resolved with taking MiraLax. ENTYVIO MONITORING PARAMETERS (From HID): Observe patients during infusion (until complete) and monitor for hypersensitivity reactions; LFTs; tuberculosis screening according to local practice; signs/symptoms of infection; signs/symptoms of progressive multifocal leukoencephalopathy, including new onset or worsening of neurological signs and symptoms (eg, progressive weakness on one side of the body or clumsiness of limbs, disturbance of vision, and changes in thinking, memory, and orientation leading to confusion and personality changes); any new onset or worsening of neurological signs and symptoms FU in 3 months - scheduled 07/24/25 Orders: Referrals Gastroenterology Referral K59.09 - Other constipation Coding Level of Care Code Est Pt Level 4 (30278) Diagnoses Gastroesophageal reflux disease without esophagitis K21.9 Esophagitis presence: without esophagitis Crohn's disease K50.019 Digestive disease complication type: unspecified complication Gastrointestinal tract location: small intestine Chronic constipation K59.09 Time Spent (min) 22
[2025-05-01 10:55] VITALS: BP 134/83; PULSE 76; BMI 31.4
== END 2025-05-01 11:37 | disposition home or self-care (01) ==
LOC: HO.HGI 10:52
PROVIDERS: PCP Internal Medicine; Visit Provider Internal Medicine Gastroenterology
DX: K21.9 Gastro-esophageal reflux disease without esophagitis (principal); K50.019 Crohn's disease of small intestine with unspecified complications; K59.09 Other constipation
CPT/HCPCS: 99214

== ENCOUNTER → 2025-05-01 10:51 | Outpatient (BNVA) | payer OTHER, SELFPAY | PROVIDERS: PCP Internal Medicine; Visit Provider Internal Medicine Gastroenterology | DX: K21.9 Gastro-esophageal reflux disease without esophagitis (principal); K50.019 Crohn's disease of small intestine with unspecified complications; K59.09 Other constipation | CPT/HCPCS: 99212 ==

== ENCOUNTER 2025-05-20 08:15 | Outpatient (REF) | payer OTHER, SELFPAY ==
[2025-05-20 10:55] LABS: Hematocrit 41.5 % (37.0-47.0); Hemoglobin 13.3 g/dl (12.0-16.0)
[2025-05-20 11:52] LABS: Folate 6.0 ng/mL (> or = 4.0); Vitamin B12 335 pg/mL (200-900)
[2025-05-20 13:14] LABS: Calcium 9.1 mg/dL (8.4-10.2)
== END 2025-05-20 08:16 | disposition home or self-care (01) ==
LOC: HO.HMGCLDS 08:15
PROVIDERS: PCP Internal Medicine; Visit Provider Internal Medicine
DX: K50.019 Crohn's disease of small intestine with unspecified complications (principal); R53.83 Other fatigue; E21.3 Hyperparathyroidism, unspecified
CPT/HCPCS: 36415; 82306; 82310; 82607; 82746; 85014; 85018

== ENCOUNTER 2025-05-23 09:59 | Outpatient (AMB) | payer OTHER, SELFPAY ==
--- NOTE | 2025-05-23 09:54 | MHC.PC.OV ---
Intake Visit Reasons: Insomnia, Discuss Vitamins. Android [phone] Allergies No Known Allergies (No Known Allergies*) Allergy (Verified 05/23/25 10:05) Medication List - Last Reconciled 05/23/25 by Yuli Garner MD betamethasone dipropionate 0.05% topical calcium carbonate 600 mg PO BID cholecalciferol (vitamin D3) 250 mcg PO MOFR@0900 90 days doxycycline monohydrate 100 mg PO BID ferrous sulfate 325 mg PO DAILY hydroxyzine HCl 10 mg PO BEDTIME PRN levothyroxine 88 mcg PO QAM pantoprazole 40 mg PO DAILY Tobacco use date assessed: 05/23/25 Dental Screening Dental Screen Date: 04/08/25 HPI Insomnia, Discuss Vitamins. Android [phone] HPI Details - The patient is a 64-year-old female presenting with insomnia, follow-up on hypothyroidism and hypercholesterolemia. - Insomnia: Reports difficulty sleeping at night . taking hydroxyzine 25 mg, which helps but wakes up very sleepy. - Denies history of obstructive sleep apnea, snoring, or waking up gasping for breath. - Hypercholesterolemia: Concerned about elevated cholesterol levels noted in March, higher than previous measurements. - Consulted a customer experience associate but did not receive specific dietary recommendations. - Diet includes foods high in cholesterol and triglycerides, such as whole milk, butter, and loves shrimp scampi. - slice consists mainly of running with her dog daily. [facility] Medical History (Updated 05/23/25 @ 10:22 by Yuli Garner MD) Insomnia Mixed dyslipidemia Partial small bowel obstruction History of small bowel obstruction Dyslipidemia Impaired fasting glucose History of COVID-19 GERD (gastroesophageal reflux disease) Morbid obesity Hyperparathyroidism Overactive bladder Upper back pain, chronic Large breasts Vitamin D deficiency Osteoporosis Postmenopause History of shingles Acquired hypothyroidism RLS (restless legs syndrome) Surgical History Hx of sigmoidoscopy Hx of reduction mammoplasty History of bowel resection History of esophagogastroduodenoscopy Hx of colonoscopy Hx of cholecystectomy Hx of tonsillectomy History of appendectomy H/O partial resection of colon Family History Father Lung cancer Mother Diabetes Hypertension Sister No problems noted. Mother Diabetes Paternal Grandmother Diabetes Father Lung cancer Paternal Uncle Lung cancer Social History Household Members: Family Housing: Apartment Are you a primary chiropractic care to a significant other at home: No Do you presently have visiting nurse or other home services: No Alcohol intake: never Patient Tobacco Use Status: Never used Tobacco e-Cigarette/Vaping Use: Never Used Second Hand Smoke Exposure: No Advance Directives Date on File: 05/31/22 service: No Current occupational status: unemployed and disabled Current occupation: [employer] Cognitive needs: No Hearing needs: No Vision needs: Yes Female Reproductive History Menstrual Age of Menarche: 12 Questionnaire Thrive Questionnaire Date Thrive assessed: 08/18/24 NICOLE-7 AMB Questionnaire NICOLE-7 Date NICOLE - 7 assessed: 04/08/25 Source: Developed by Drs. Brendon Muñoz, Kasey Becker, Raul Sweet and colleagues, with an educational bakari from [employer]. Review of Systems Const All systems reviewed & are unremarkable except as noted in HPI and below ENT Reports no additional complaints Card Denies chest pain, Denies chest pain with activity and Denies irregular heart rhythm Resp Denies cough GI Denies abdominal pain, Denies melena, Denies change in bowel habits and Denies heartburn Reports no additional complaints Musc Reports no additional complaints Neuro Reports no additional complaints Psych Reports no additional complaints Endo Reports no additional complaints Domenic/Lymph Denies easy bleeding Aller/Immun Reports no additional complaints Physical exam (Primary Care) Tobacco/Smoking Status: Tobacco use Status Tobacco use date assessed 05/23/25 05/23/25 09:58 Patient Tobacco Use Status Never used Tobacco 05/23/25 09:58 e-Cigarette/Vaping Use Never Used 05/23/25 09:58 Thrive Assessment: Date of Thrive Assessment Date Thrive assessed 08/18/24 05/23/25 09:58 Telehealth Telehealth Telehealth Platform: [facility] Location of provider rendering services: practice address Location of patient: address on file Patient Identification confirmed using: Name, : Yes Telehealth method: video Patient verbally consented to treatment: Yes Patient verbally consented to billing insurance company: Yes Patient informed of any privacy concerns related to visit: Yes Minutes spent on Phone/Video with Pt.: 15 Results Reviewed Results Reviewed: Name: Meredith Bravo Age/Sex: 64/F : 1960 Unit#: [id number] Attend Dr: Chelsie Navas MD Re05/23/25 Status: REG RCR Location: [facility] Disch: SPEC : [id number] JOSE: 05/23/25 STATUS: COMP REQ : [id number] RECD: 05/23/[address]: Chelsie Navas MD COMP: 05/23/25 ENTERED: 05/23/[address]: ORDERED: CBC Auto Diff Test Result Flag Reference WBC 5.5 4.8-10.8 X10*3/uL RBC 4.53 4.20-5.50 X10*6/uL HGB 12.8 12.0-16.0 g/dl HCT 38.8 37.0-47.0 % MCV 85.7 80.0-98.0 fL MCH 28.3 27.0-33.0 pg MCHC 33.0 31.0-35.0 g/dl RDW 14.6 11.0-16.0 % PLT 299 160-400 X10*3/uL MPV 9.9 9.4-12.3 fL Neut Pct Auto 58.0 45-73 % ImGran Pct Auto 0.4 0.0-0.4 % Lymp Pct Auto 31.9 20-40 % Sweet Grass Pct Auto 7.0 2-11 % Eos Pct Auto 2.2 0-4 % Baso Pct Auto 0.5 0-2 % NRBC Pct Auto 0.0 0.0-0.2 /100WBC ANC Neut Abs # 3.2 2.0-8.3 x10*3/uL ImGran Abs Auto 0.02 0.00-0.03 X10*3/uL Lymph Abs Auto 1.7 1.2-4.9 X10*3/uL Sweet Grass Abs Auto 0.4 0.1-1.2 X10*3/uL Eos Abs Auto 0.1 0.0-0.4 X10*3/uL Baso Abs Auto 0.0 0.0-0.2 X10*3/uL NRBC Abs Auto 0.000 0.0-0.012 X10*3/uL Name: Meredith Bravo Age/Sex: 64/F : 1960 Unit#: [id number] Attend Dr: Chelsie Navas MD Re05/23/25 Status: REG RCR Location: [facility] Disch: SPEC : [id number] JOSE: 05/23/25 STATUS: COMP REQ : [id number] RECD: 05/23/[address]: Chelsie Navas MD COMP: 05/23/25 ENTERED: 05/23/25- OTHR DR: ORDERED: CMP, C Reactive Prot Test Result Flag Reference Sodium 140 135-145 mmol/L Potassium 4.1 3.3-5.1 mmol/L CL 107 96-108 mmol/L CO2 24 22-29 mmol/L Gap 13 12-20 BUN 19 H 9-16 mg/dL Creat 0.89 0.5-1.4 mg/dL Estimated CrCl Test not performed Unable to calculate eCrCL; all parameters not provided. eGFR > 60 Chronic Kidney Disease: Estimated GFR < 60 mL/min/1.73m2 Severe Kidney Disease: Estimated GFR < 15 mL/min/1.73m2 Glucose, Random 111 60-115 mg/dL CA 9.4 8.4-10.2 mg/dL Total Bili 0.4 0.0-1.0 mg/dL AST (GOT) 16 5-31 U/L ALT (GPT) 15 0-31 U/L CRP 0.62 H < or = 0.50 mg/dL Protein, Total 6.7 6.5-8.0 g/dL Alb 3.9 3.5-5.0 g/dL Alk Phos 41 39-117 U/L Name: Meredith Bravo Age/Sex: 64/F : 1960 Unit#: [id number] Attend Dr: Yuli Garner MD Re05/20/25 Status: DEP REF Location: [facility] Disch: SPEC : [id number] JOSE: 05/20/25 STATUS: COMP REQ : [id number] RECD: 05/20/[address]: Yuli Garner MD COMP: 05/20/25 ENTERED: 05/20/[address]: Brendon Boo MD ORDERED: CA, Vitamin D 25-OH Test Result Flag Reference CA 9.1 8.4-10.2 mg/dL Vitamin D 25-OH 65.3 >30 ng/mL Health Based Reference Values* < 20 ng/mL Deficient 20-30 ng/mL Insufficient > 30 ng/mL Sufficient Laboratory Tests 05/20/25 08:26 Vitamin B12 335 Folate 6.0 Coding Level of Care Code Tele Est Pt Level 4 (67640) Diagnoses Acquired hypothyroidism E03.9 Mixed dyslipidemia E78.2 Insomnia G47.00 Assessment & Plan Assessment & Plan (1) Acquired hypothyroidism: Code(s): E03.9 - Hypothyroidism, unspecified Category: Medical (2) Mixed dyslipidemia: Code(s): E78.2 - Mixed hyperlipidemia Category: Medical (3) Insomnia: Code(s): G47.00 - Insomnia, unspecified Category: Medical Plan Patient was informed and verbally consented to the use of an ambient scribe for clinic note documentation during this visit. - Take hydroxyzine in the late afternoon or reduce the dose to half a tablet. - Modify diet to reduce cholesterol and triglycerides: avoid whole milk, butter, and shrimp scampi. - Incorporate more fish, vegetables, and whole grains into meals. - Continue regular physical activity mainly moderate exertion for at least 15 minutes daily - Schedule a follow-up cholesterol check in August.
== END 2025-05-23 14:27 | disposition home or self-care (01) ==
LOC: HO.HMCC 09:59
PROVIDERS: PCP Internal Medicine; Visit Provider Internal Medicine
DX: E03.9 Hypothyroidism, unspecified (principal); E78.2 Mixed hyperlipidemia; G47.00 Insomnia, unspecified

== ENCOUNTER 2025-08-19 09:05 | Outpatient (REF) | payer OTHER, SELFPAY ==
--- NOTE | ~2025-08-19 | MM_ITS ---
EXAMINATION: DXA BONE DENSITY EXTREMITY HISTORY: OSTEOPOROSIS TECHNIQUE: [employer] Dual energy absorptiometry (DEXA) of the lumbar spine, total left hip, femoral neck, and distal forearm was performed. COMPARISON: Comparison is made with the prior examination dated 08/16/2023. FINDINGS: The bone mineral density of the lumbar spine is 0.868 g/cm2, corresponding to a T-score of -2.6, and a Z-score of -1.7. This is indicative of osteoporosis. This represents a BMD change of 4.7% compared to the prior exam. This is statistically significant. The bone mineral density of the left total hip is 0.810 g/cm2, corresponding to a T-score of -1.6, and a Z-score of -0.9. This is indicative of osteopenia. This represents a BMD change of 6.2% compared to the prior exam. This is statistically significant. The bone mineral density of the left femoral neck is 0.763 g/cm2, corresponding to a T-score of -2.0, and a Z-score of -1.0. This is indicative of osteopenia. This represents a BMD change of 5.5% compared to the prior exam. The bone mineral density of the distal forearm is 0.823 g/cm2, corresponding to a T-score of -0.6, and a Z-score of 0.6. This is indicative of normal bone mineral density. This represents a BMD change of 11.2% compared to the prior exam. This is statistically significant. FRACTURE RISK: The FRAX index suggests a ten year probability of major osteoporotic fracture of 16.6%, and of hip fracture 2.3%. MM/XR DEXA appendicular skeleton IMPRESSION: Based on bone mineral density, and according to World Health Organization (WHO) criteria, the diagnosis is consistent with osteoporosis. Statistically, 68% of repeat scans fall within 1 SD (+/- 0.010 g/cm2 for AP spine L1-L4) and 1 SD (+/- 0.012 g/cm2 for femur total) FRAX is a trademark of the [employer]'s [place] for Metabolic Bone Disease, a World Health Organization (WHO) Collaborating Center. Electronically signed by: Brendon Molina MD 08/19/2025 10:18 AM [facility]
== END 2025-08-19 09:06 | disposition home or self-care (01) ==
LOC: HO.MAMMO 09:05
PROVIDERS: PCP Internal Medicine; Visit Provider Internal Medicine Endocrinology, Diabetes & Metabolism
DX: M81.0 Age-related osteoporosis without current pathological fracture (principal)
CPT/HCPCS: 77081

== ENCOUNTER → 2025-08-19 09:15 | Outpatient (BNV) | payer OTHER, SELFPAY | PROVIDERS: PCP Internal Medicine; Visit Provider Radiology Diagnostic Radiology | DX: E28.39 Other primary ovarian failure (principal) | CPT/HCPCS: 77081 ==

== ENCOUNTER 2025-09-01 09:07 | Day surgery (SDC) | payer OTHER, SELFPAY ==
--- NOTE | 2025-08-27 14:23 | P.CONAN_ITS ---
Documented by User: Jerica Mosley NP 08/27/25 14:24 HPI - Anesthesia Eval Consult details Narrative: 64 yr old female for Sigmoidoscopy Flexible Hyperparathyroidism, Osteoporosis: follows [facility] endo PMF Active Problems Active Problems: All Active Problems Insomnia (Acute) Mixed dyslipidemia (Acute) Crohn's disease (Acute) GERD (gastroesophageal reflux disease) (Acute) Impaired fasting glucose (Acute) Morbid obesity (Acute) Hyperparathyroidism (Acute) Overactive bladder (Acute) Osteoporosis (Acute) Acquired hypothyroidism (Acute) Past Medical History Medical History (Updated 05/23/25 @ 10:22 by Yuli Garner MD) Insomnia Mixed dyslipidemia Partial small bowel obstruction History of small bowel obstruction Dyslipidemia Impaired fasting glucose History of COVID-19 GERD (gastroesophageal reflux disease) Morbid obesity Hyperparathyroidism Overactive bladder Upper back pain, chronic Large breasts Vitamin D deficiency Osteoporosis Postmenopause History of shingles Acquired hypothyroidism RLS (restless legs syndrome) Family History Family History Father Lung cancer Mother Diabetes Hypertension Sister No problems noted. Mother Diabetes Paternal Grandmother Diabetes Father Lung cancer Paternal Uncle Lung cancer Family history of problems with anesthesia: No Surgical History Surgical History Hx of sigmoidoscopy Hx of reduction mammoplasty History of bowel resection History of esophagogastroduodenoscopy Hx of colonoscopy Hx of cholecystectomy Hx of tonsillectomy History of appendectomy H/O partial resection of colon History of Problems with Anesthesia: No Social History Social History Household Members: Family Housing: Apartment Are you a primary childcare attendant to a significant other at home: No Do you presently have visiting nurse or other home services: No Alcohol intake: never Patient Tobacco Use Status: Never used Tobacco e-Cigarette/Vaping Use: Never Used Second Hand Smoke Exposure: No Use of substances other than those prescribed or required for medical reasons: No Are you DNR?: No Advance Directives: Yes Advance Directives on File: Yes Advance Directives Date on File: 05/31/22 Patient : No : No service: No Current occupational status: unemployed and disabled Current occupation: [employer] Cognitive needs: No Hearing needs: No Vision needs: Yes Meds Allergies Allergy/AdvReac Type Severity Reaction Status Date / Time No Known Allergies (No Known Allergy Verified 05/23/25 10:05 Allergies*) Home Medications ?Medication ?Instructions ?Recorded ?Confirmed ?Last Taken ?Type betamethasone dipropionate 0.05 % topical 05/01/25 Unknown History topical ointment doxycycline monohydrate 100 mg 100 mg PO BID 05/01/25 05/01/25 Unknown History capsule ferrous sulfate 325 mg (65 mg 325 mg PO DAILY 05/01/25 05/01/25 Unknown History iron) tablet,delayed release Assessment and Plan Final Anesthetic Review Family History of Problems with Anesthesia: No History of Problems with Anesthesia: No Documented by User: Kate Perez MD 09/01/25 10:18 [facility] Past Medical History Medical History (Updated 05/23/25 @ 10:22 by Yuli Garner MD) Insomnia Mixed dyslipidemia Partial small bowel obstruction History of small bowel obstruction Dyslipidemia Impaired fasting glucose History of COVID-19 GERD (gastroesophageal reflux disease) Morbid obesity Hyperparathyroidism Overactive bladder Upper back pain, chronic Large breasts Vitamin D deficiency Osteoporosis Postmenopause History of shingles Acquired hypothyroidism RLS (restless legs syndrome) Family History Family History Father Lung cancer Mother Diabetes Hypertension Sister No problems noted. Mother Diabetes Paternal Grandmother Diabetes Father Lung cancer Paternal Uncle Lung cancer Surgical History Surgical History Hx of sigmoidoscopy Hx of reduction mammoplasty History of bowel resection History of esophagogastroduodenoscopy Hx of colonoscopy Hx of cholecystectomy Hx of tonsillectomy History of appendectomy H/O partial resection of colon Social History Social History Household Members: Family Housing: Apartment Are you a primary childcare attendant to a significant other at home: No Do you presently have visiting nurse or other home services: No Alcohol intake: never Patient Tobacco Use Status: Never used Tobacco e-Cigarette/Vaping Use: Never Used Second Hand Smoke Exposure: No Use of substances other than those prescribed or required for medical reasons: No Are you DNR?: No Advance Directives: Yes Advance Directives on File: Yes Advance Directives Date on File: 05/31/22 Patient : No : No service: No Current occupational status: unemployed and disabled Current occupation: [employer] Cognitive needs: No Hearing needs: No Vision needs: Yes Meds Allergies Allergy/AdvReac Type Severity Reaction Status Date / Time No Known Allergies (No Known Allergy Verified 05/23/25 10:05 Allergies*) Home Medications ?Medication ?Instructions ?Recorded ?Confirmed ?Last Taken ?Type betamethasone dipropionate 0.05 % topical 05/01/25 Unknown History topical ointment doxycycline monohydrate 100 mg 100 mg PO BID 05/01/25 05/01/25 Unknown History capsule ferrous sulfate 325 mg (65 mg 325 mg PO DAILY 05/01/25 05/01/25 Unknown History iron) tablet,delayed release Exam Airway Mallampati Class: II TM Dist: >3cm Neck ROM: Full Denture: Upper and Lower Heart: rrr Lungs: cta Assessment and Plan Assessment Anesthesia Assessment: Anesthesia Plan Discussed and Chart Reviewed Final Anesthetic Review NPO: Yes ASA Class: II Final Preanesthetic Review: No Changes in Pt Med Stat, Meds/Allgs Chart Reviewed and Consent Obtained/Reviewed Patient Risk: Low Procedure Risk: Low Anesthetic Plan Anesthetic Plan: MAC: Disposition: Standard PACU
--- NOTE | 2025-09-01 09:25 | MHC.SHP ---
Pre-Procedural Eval Section A - 24 Hr Update-Section A only Date of Service: 09/01/25 The patient is an INPATIENT: No The patient has been examined within 24 hours of the surgical procedure. The History & Physical has been completed within 30 days and I have reviewed it.: No Section B - Complete if H&P > 30 days Chief Complaint: Crohn's disease of small intestine Relevant Family History (Specify if Yes): No Relevant Social History: None Present Medications: see Short Stay Collaborative assessment Medical History: Significant History (History of small bowel obstruction Dyslipidemia Impaired fasting glucose History of COVID-19 GERD (gastroesophageal reflux disease) Morbid obesity Hyperparathyroidism Overactive bladder Upper back pain, chronic Large breasts Vitamin D deficiency Osteoporosis Postmenopause History of shingles Acquire) History of Previous Operations: Relevant previous surgery/procedure and date(s) (Hx of sigmoidoscopy Hx of reduction mammoplasty History of bowel resection History of esophagogastroduodenoscopy Hx of colonoscopy Hx of cholecystectomy Hx of tonsillectomy History of appendectomy H/O partial resection of colon) Allergies: Allergies Allergy/AdvReac Type Severity Reaction Status Date / Time No Known Allergies (No Known Allergy Verified 05/23/25 10:05 Allergies*) Review of Systems Sugical H&P ROS: Negative: Constitution, Cardiovascular, Respiratory and Gastrointestinal Exam Surgical H&P Exam: Normal: Heart, Normal: Lungs, Normal: Extremities and Normal: Abdomen Plan Diagnosis/Plan: Unchanged I have reviewed the history and physical and performed a pertinent physical examination on my patient. No changes have occurred unless specified. Time Spent With Patient Time: Total time managing care of this patient today ____ minutes.
[2025-09-01 09:50] VITALS: BMI 32.1
[2025-09-01 10:05] VITALS: BP 136/78; PULSE 76; RESP 16; TEMP 36.2; O2SAT 99
[2025-09-01] MEDS: Lactated Ringers 1,000 ML 100 ML IVCONT (10:15)
--- NOTE | 2025-09-01 10:22 | PC.NURSE ---
1st enema left lateral position hernandez well
--- NOTE | 2025-09-01 11:12 | HO.OPN-COLON ---
Colonoscopy Operative Note Operative Note Date of Service: 09/01/25 Narrative: FLEXIBLE SIGMOIDOSCOPY TILL ANASTOMOSIS WITH BIOPSIES Pre-op diagnosis: Colon cancer screening, follow-up of Crohn's disease Post-op diagnosis: Same Endoscopist: Chelsie Navas MD Anesthesia: None (pt's IV infilterated after propofol 50 mg was injected and since pt is a hard IV start, she agreed to have the procedure performed without anesthesia) Consent: Indications for the procedure and potential complications of bleeding, perforation, reaction to medications and missed diagnosis were discussed with the patient and informed consent was obtained. Instrument: Olympus GIF H 190 mid size upper endoscope Monitoring: Vital signs and clinical assessment, continuous EKG monitoring, Pulse oximetry were done throughout the procedure. Procedure: The patient was placed in the left lateral decubitis position and pre-procedure medications were administered. After a digital rectal examination of the ano-rectum, the video upper endoscope was inserted into the rectum and advanced through the colon to the ileo-colic anastomosis at 30 cms. Distal small bowel was examined.? The upper endoscope was slowly withdrawn in a retrograde panoramic fashion and the colon mucosa was carefully examined including a retroflexed view of the rectum. Findings and interventions are described below. Procedure Difficulty: Without difficulty Findings: Terminal Ileum: Distal 3-4 cms was examined - normal mucosa. A few 5-6 mm superficial ulcers at the ileo-colic anastomosis - biopsies were obtained.? Sigmoid Colon:? Decreased vascularity due to inactive Crohn's disease in the colon - four quadrant biopsies were obtained. Rectum:? Normal - four quadrant biopsies were obtained Ano-rectum:? Hypertrophied anal papillae Colon preparation: Fair after some irrigation Impression and Post Procedure Diagnosis: Flexible sigmoidoscopy Findings: Terminal Ileum: Distal 3-4 cms was examined - normal mucosa. A few 5-6 mm superficial ulcers at the ileo-colic anastomosis - biopsies were obtained (improved from previous sigmoidoscopy) Sigmoid Colon:? Decreased vascularity due to inactive Crohn's disease in the colon - four quadrant biopsies were obtained. No polyps were detected. Plan: Await pathology results Patient has a FU appt on 09/05/25 in the GI Clinic with Chelsie Navas M.D.. Repeat flexible sigmoidoscopy interval based on path results - in 1-2 years if no dysplasia on colon biopsies (colon prep for next sigmoidoscopy). Above findings were reviewed with the patient.
[2025-09-01 11:55] VITALS: BP 153/77; PULSE 62; RESP 16; TEMP 36.6; O2SAT 98
== END 2025-09-01 12:32 | disposition home or self-care (01) ==
PROVIDERS: PCP Internal Medicine; Visit Provider Internal Medicine Gastroenterology
PROC: 0DJD8ZZ Inspection of Lower Intestinal Tract, Via Natural or Artificial Opening Endoscopic (ICD-10-PCS; CPT 45330; principal; 2025-09-01 11:00)
DX: Z12.11 Encounter for screening for malignant neoplasm of colon (principal); K50.90 Crohn's disease, unspecified, without complications; K21.9 Gastro-esophageal reflux disease without esophagitis; K59.09 Other constipation; K57.30 Diverticulosis of large intestine without perforation or abscess without bleeding; K63.3 Ulcer of intestine
CPT/HCPCS: 45380; 88305; J2003; J2704

== ENCOUNTER → 2025-09-01 09:07 | Outpatient (BNV) | payer OTHER, SELFPAY | PROVIDERS: PCP Internal Medicine; Visit Provider Internal Medicine Gastroenterology | DX: Z12.11 Encounter for screening for malignant neoplasm of colon (principal); K50.90 Crohn's disease, unspecified, without complications | CPT/HCPCS: 45331 ==

== ENCOUNTER 2025-09-05 08:12 | Outpatient (AMB) | payer OTHER, SELFPAY ==
--- NOTE | 2025-09-05 08:14 | A.OFFVIS_ITS ---
Intake Visit Reasons: f/u rescheduled from 07/24 Intake Note: Patient follow up for Crohns diseases and Chronic constipation. Patient cc: Acid reflux on and off, denies any other GI issues for today visit. 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: No Allergies No Known Allergies (No Known Allergies*) Allergy (Verified 09/05/25 08:14) Medication List - Last Reconciled 09/05/25 by Chelsie Navas MD betamethasone dipropionate 0.05% topical calcium carbonate 600 mg PO BID cholecalciferol (vitamin D3) 250 mcg PO MOFR@0900 90 days doxycycline monohydrate 100 mg PO BID ferrous sulfate 325 mg PO DAILY hydroxyzine HCl 10 mg PO BEDTIME PRN levothyroxine 88 mcg PO QAM pantoprazole 40 mg PO DAILY HPI HPI f/u rescheduled from 07/24: Details: Telemedicine visits 64-YEAR-OLD FEMALE WITH GERD, OSTEOPOROSIS, HYPOTHYROIDISM, HYPERPARATHYROIDISM HERE FOR FOLLOW-UP OF CROHN'S DISEASE. Patient has been followed by Dr. Jordan since 2012. Pt was hospitalized from 08/17/24 to 08/29/24 She was treated with IV steroids followed by PO prednisone taper. IBD SUMMARY YEAR OF DIAGNOSIS:? 2000 DISEASE EXTENT:Colon and small intestines LAST FLEXIBLE SIGMOIDOSCOPY:11/2023 as noted above NEXT COLON DUE: 11/2025 EXTRAINTESTINAL MANIFESTATIONS: Denies skin rash, joint pains or eye pain GI SURGERY:? Colon resection 2000 - subtotal colectomy. PAST TREATMENTS: Pentasa 1 gram 4 times daily, Senna for constipation, Prednisone taper, Humira CURRENT THERAPY: Entyvio? VACCINATIONS: Flu shot:? Gets Flu shot every year. Hep A/B serology /vaccination:?competed Hep B vaccination TODAY'S VISIT: Patient reports acid reflux on and off, Can have burning in the throat at night - taking pantoprazole which helps Has dinner at 5 - 5:30 pm and goes to bed by 10 or 11 pm Flex Sig and biopsy results were reviewed Constipation comes and goes - no BM for a few days. Some days she goes a lot. PAST VISITS: I have been having a hard time - feels she needs to go and keeps pushing and it gets stuck. Feels infusions are working - next appt on 05/29/25 (7 weeks since the last infusion) Having a BM every day. Unsure what caused the cons tipation, She is changing her diet - fibre diet Tried taking the enema and is not helpful Takes Miralax if she has not gone to the bathroom in a few days (every few months) Did not take the steroids Not going to the bathroom regularly - has a BM every other day or every 2 days with adequate evacuation Was having BMs twice a day prior to hospitalization. Eating a lot of fibre Denies feeling bloated like she was in the hospital. Taking iron once a day - can feels a little dizzy climbing stairs Feels she is wobbly Continues to feel bloated and has been eating less Had a good BM last night. Sometimes she feels she has to push. Stool are darker since she started taking iron. PAST VISITS: CC; Pt recently started on humira following nurse instruction. Pt also had lab work completed that was ordered at their last visit. Pt reports that they have had slight improvements in their sx since their last visit. However, they do feel that they are still experiencing their chronic sx, particularly the bloating. Pt denies any difficulties with the humira injections to this point. Took her 1st Humira injection on 03/02/24 and will be taking the 2nd injection on 03/16/24 Discharged home on 01/22/24 on a prednisone taper. Feels weak with intermittent dizziness and does not feel herself Prescription for prednisone was ? miswrittent and she has been taking 1 tab daily and to increase to 2 tab on week 2 and then 3 tab on week 3 Sitting up all the time - does not want to lay down Flex sig and biopsy results reviewed Sometimes I get flared up Has been taking more salads Can have pain and feels bloated. Tries to go and stool feels stuck at the end and unable to expell Takes Miralax prn if she is bloated and stool gets stuck - once every two weeks. Denies cough and does'nt think she has a fever. Having diarrhea - 3 BMs yesterday and twice today Diarrhea has improved since hospitalization and denies any blood in the stool PAST VISITS: She was advised to take Miralax once a week. Scheduled for breast reduction on 07/20/23 and unable to lie on her side for 8 weeks. She would like to reschedule to spring. Sometimes I cant go and sometimes it hurts to have a BM Noted blood in the stools last few days since she was pushing too hard and straining to go Taking Pentasa 4 times a day. Has a powder at home and has not been using it. Had an episode of nausea, vomiting and diarrhea a few weeks ago which lasted 24 hrs. She is doing well now. Had dark stools after she has spinach and broccoli. Lab and stool tests were reviewed - CRP slightly elevated. Planning to travel to [place] with her niece in January Going to [place] in March. Fecal calprotectin were normal. Bloating has resolved. Going normal with 1-3 times a day with passage of normal stools Cold sweats have resolved - thinks it was related to COVID infection. Had her 2nd Booster for COVID a few months Feels she has an infection. Intermittent cold sweats. Constantly going to the bathroom to urinate. Diarrhea is not as bad as while she was in the hospital. BMs are dark (blackish) Has been having a few loose pudding like BMs per day. Concerned about recurrent CMV infection. Upset since her sister with PMR in Nov 07, 2021. An aunt and sister as well Has to go to [place] in January to help her aunt. Going to the bathroom regularly. Once in a great while, she can see some blood (a little dot) Can have some abdominal pain - when she was very stressed and not eating right. Has been very stressed. Has been doing well since she had the subtotal colectomy without recurrent SBO. Has been taking the Pentasa 1 gram 4 times a day for the past several yrs. Continues to have heartburn - comes on all of a sudden - mostly at night. Takes Senna if she does not have a BM for a day and is able to go the next morning. Patient denies major cardiac or pulmonary problems, loud snoring or sleep apnea. Denies problems with anesthesia in the past. Denies being on chronic anticoagulation. Patient denies known family history of other GI malignancies. Sister had cancer in one of the polyps and had surgery and is doing fine now. IMAGING STUDIES:? 05/28/[address] SCAN SHOWED: Suspect partial colectomy. Fluid throughout mildly dilated large and small bowel as well as within the rectal vault. Findings suggest hypersecretion and mild ileus. ? Approximately 1 cm L4 sclerotic lesion, not otherwise characterized. No other sclerotic or lytic bony lesion identified. In the absence of known or suspected malignancy elsewhere (for example, breast cancer), the finding probably represents a bone island. Recommend clinical correlation. 05/[address] SCAN SHOWED:Status post subtotal colectomy.? Multiple dilated loops of small and large bowel with slight increased prominence and proximal loops of small bowel.? There was several air-fluid levels.? ENDOSCOPIC STUDIES: 11/20/23 FLEX SIG SHOWED: Terminal Ileum: Distal 10 cms was examined - normal mucosa - random biopsies were obtained. Multiple 1-2 cms ulcers at the ileo-colic anastomosis - multiple biopsies were obtained.? Sigmoid Colon:? Decreased vascularity due to inactive Crohn's disease in the colon - four quadrant biopsies were obtained. No polyps were detected. Plan: Repeat flexible sigmoidoscopy interval based on path results - in 2 - 3 years if no dysplasia on colon biopsies. BIOPSIES SHOWED: A. Terminal ileum, biopsy: Terminal ileal mucosa within normal limits. B. Anastomotic ulcer, biopsy: Ileocolonic mucosa with patchy active inflammation and fragment of ulcer material. C. Colon, sigmoid, biopsy: Colonic mucosa within normal limits. D. Rectum, biopsy: Rectal mucosa within normal limits. Comment: No dysplasia or granulomata are seen 07/02/21 SIGMOIDOSCOPY SHOWED:Focal 2-4 cms area of ulcerations just proximal to the ileo-colic anastomosis - multiple biopsies were obtained.? Normal small bowel mucosa proximally. No polyps were detected. Decreased vascularity due to inactive Crohn's disease in the colon - surveillance biopsies were obtained. Plan:? Repeat Colonoscopy interval based on path results - in 2 years if no dysplasia on colon biopsies. BIOPSIES SHOWED: A.? Terminal ileum, biopsy:? Ileocolonic mucosa with mild crypt disarray; otherwise within normal limits. B.? Colon, 25 cm, biopsy:? Colonic mucosa within normal limits. C.? Colon, 15 cm, biopsy:? Colonic mucosa within normal limits. D.? Colon, 5 cm, biopsy:? Colonic mucosa within normal limits. COMMENT:? No dysplasia or granulomata are seen. 05/2018 FLEXIBLE SIGMOIDOSCOPY SHOWED:No polyps seen.Dilated small bowel with scattered 1 -1.5 cms ulcers througout - biopsies were obtained for histology and viral cultures. Significant amounts of stool not seen in the small intestine. Ileo-colic anastomosis at 35 cms. Circumferential ulcers with cobblestone appearance - multiple biopsies were obtained. Colonoscope passed easily through the anastomosis and no obstruction noted. Endoscopic appearance suggestive of Crohn's disease - other possibilities include CMV infection or ischemic ulcers related to past surgery/ small bowel dilation. Plan: Await pathology results. Resume a clear liquid diet as tolerated until biopsy results are available. Repeat Colonoscopy interval based on path results. BIOPSIES SHOWED: A.? SMALL BOWEL ULCER, BIOPSIES:? FRAGMENTS OF SMALL INTESTINAL MUCOSA WITH ACTIVE ILEITIS AND ULCERATION WITH RARE CYTOMEGALOVIRUS INCLUSIONS (SEE NOTE). B.? COLON, ULCER, BIOPSIES:? FRAGMENTS OF SMALL INTESTINAL AND COLONIC MUCOSA AND GRANULATION TISSUE WITH MILD CHRONIC ACTIVE COLITIS (SEE NOTE). C.? RECTUM, BIOPSIES:? FRAGMENTS OF HYPERPLASTIC COLONIC MUCOSA. NOTE:? THERE IS CRYPT ARCHITECTURAL DISTORTION, GLANDULAR BUDDING AND SUBMUCOSAL MIXED INFLAMMATORY INFILTRATES.? THESE FINDINGS MAY BE DUE TO THE CMV INFECTION, BUT THERE MAY BE UNDERLYING CROHN'S DISEASE OR ULCERATIVE COLITIS.? RECOMMEND TREATING CMV INFECTION AND FOLLOW-UP ENDOSCOPY WITH BIOPSIES TO RULE OUT INFLAMMATORY BOWL DISEAS [facility] Medical History (Updated 05/23/25 @ 10:22 by Yuli Garner MD) Insomnia Mixed dyslipidemia Partial small bowel obstruction History of small bowel obstruction Dyslipidemia Impaired fasting glucose History of COVID-19 GERD (gastroesophageal reflux disease) Morbid obesity Hyperparathyroidism Overactive bladder Upper back pain, chronic Large breasts Vitamin D deficiency Osteoporosis Postmenopause History of shingles Acquired hypothyroidism RLS (restless legs syndrome) Surgical History Hx of sigmoidoscopy Hx of reduction mammoplasty History of bowel resection History of esophagogastroduodenoscopy Hx of colonoscopy Hx of cholecystectomy Hx of tonsillectomy History of appendectomy H/O partial resection of colon Family History Father Lung cancer Mother Diabetes Hypertension Sister No problems noted. Mother Diabetes Paternal Grandmother Diabetes Father Lung cancer Paternal Uncle Lung cancer Social History Household Members: Family Housing: Apartment Are you a primary personal care assistant to a significant other at home: No Do you presently have visiting nurse or other home services: No Alcohol intake: never Patient Tobacco Use Status: Never used Tobacco e-Cigarette/Vaping Use: Never Used Second Hand Smoke Exposure: No Advance Directives Date on File: 05/31/22 service: No Current occupational status: unemployed and disabled Current occupation: [email or web address] Cognitive needs: No Hearing needs: No Vision needs: Yes Female Reproductive History Menstrual Age of Menarche: 12 Review of Systems Const All systems reviewed & are unremarkable except as noted in HPI and below Telehealth Telehealth Telehealth Platform: Telephone Location of provider rendering services: practice address Location of patient: address on file Patient Identification confirmed using: Name, : Yes Telehealth method: voice only Patient verbally consented to treatment: Yes Patient verbally consented to billing insurance company: Yes Patient informed of any privacy concerns related to visit: Yes Minutes spent on Phone/Video with Pt.: 15 Assessment & Plan Assessment & Plan (1) GERD (gastroesophageal reflux disease): Code(s): K21.9 - Gastro-esophageal reflux disease without esophagitis Category: Medical Qualifiers: Esophagitis presence: without esophagitis Qualified Code(s): K21.9 - Gastro-esophageal reflux disease without esophagitis (2) Crohn's disease: Code(s): K50.90 - Crohn's disease, unspecified, without complications Category: Medical Qualifiers: Digestive disease complication type: unspecified complication Gastrointestinal tract location: small intestine Qualified Code(s): K50.019 - Crohn's disease of small intestine with unspecified complications Plan 64 YF with Crohn's disease involving the small bowel and colon and is status post subtotal colectomy. Patient has been followed by Dr. Jordan since 2012. 05/2018 Flex Sig showed?Dilated small bowel with scattered 1 -1.5 cms ulcers througout - biopsies were positive for CMV inclusion and patient was treated for CMV. Ileo-colic anastomosis at 35 cms. Circumferential ulcers with cobblestone appearance - multiple biopsies were obtained 06/2021 Flexible Sig was performed and showed: Focal 2-4 cms area of ulcerations just proximal to the ileo-colic anastomosis - multiple biopsies were obtained.? Normal small bowel mucosa proximally. No polyps were detected. Decreased vascularity due to inactive Crohn's disease in the colon - surveillance biopsies were obtained. Plan:? Repeat Colonoscopy interval based on path results - in 2 years if no dysplasia on colon biopsies (due 06/2023) Patient's symptoms are well controlled with Pentasa 1 g 4 times daily. 07/2021 Pt was started on azathioprine due to focal area of ulcerations in the TI proximal to the anastomosis. Pt was [place] from 05/28 to 06/03/22 [place] [facility] COVID infection associated with diarrhea She was treated with Flagyl and Levqaquin for 7 days. Pt had postprandial abd discomfort with bloating after her hospitalization which has resolved. Pt was advised to go on a FODMAP diet for 6 weeks CRP slightly elevated at 0.61 and stool calprotectin was normal. 06/29/23 Scheduled for breast reduction on 07/20/23 and unable to lie on her side for 8 weeks. Meerdith would like to reschedule her colonoscopy from 08/28/23 to spring. 12/07/23 Sometimes I get flared up Can have pain and feels bloated. Tries to go and stool feels stuck at the end and unable to expell Takes Miralax prn if she is bloated and stool gets stuck - once every two weeks. She was advised to take Miralax once a week. Repeat Flex Sig in 2-3 years for CD surveillance Pt advised to take Miralax 2-3 times a week for bloating and constipation 09/26/24 Not going to the bathroom regularly - has a BM every other day or every 2 days with adequate evacuation Was having BMs twice a day prior to hospitalization. Eating a lot of fibre and denies feeling bloated like she was in the hospital. Pt will be started on Entyvio 300mg IV at week 0, 2, and 6 and then every 8 weeks for maintenance 05/01/25 advised to take Miralax 1-2 times a week for constipation [place] [facility] [place] - may elect to cancel if symptoms resolved with taking MiraLax. 09/01/25 Flexible sigmoidoscopy Findings: Terminal Ileum: Distal 3-4 cms was examined - normal mucosa. A few 5-6 mm superficial ulcers at the ileo-colic anastomosis - biopsies were obtained (improved from previous sigmoidoscopy) Sigmoid Colon:? Decreased vascularity due to inactive Crohn's disease in the colon - four quadrant biopsies were obtained. No polyps were detected. Plan: Repeat flexible sigmoidoscopy interval based on path results - in 1-2 years if no dysplasia on colon biopsies (colon prep for next sigmoidoscopy). BIOPSIES SHOWED: A. Colon, anastomotic site, biopsy: Ileocolonic mucosa with severely active inflammation and crypt disarray. B. Colon, 30 cm, biopsy: Colonic mucosa within normal limits. C. Colon, 20 cm, biopsy: Colonic mucosa within normal limits. D. Colon, 10 cm, biopsy: Rectal mucosa within normal limits. Comment: No dysplasia or granulomata are seen 09/05/25 Can have burning in the throat at night - taking pantoprazole which helps Has dinner at 5 - 5:30 pm and goes to bed by 10 or 11 pm Flex Sig and biopsy results were reviewed ENTYVIO MONITORING PARAMETERS (From [facility]): Observe patients during infusion (until complete) and monitor for hypersensitivity reactions; LFTs; tuberculosis screening according to local practice; signs/symptoms of infection; signs/symptoms of progressive multifocal leukoencephalopathy, including new onset or worsening of neurological signs and symptoms (eg, progressive weakness on one side of the body or clumsiness of limbs, disturbance of vision, and changes in thinking, memory, and orientation leading to confusion and personality changes); any new onset or worsening of neurological signs and symptoms FU in 6 months Coding Level of Care Code Tele Est Pt Level 3 (51382) Diagnoses Gastroesophageal reflux disease without esophagitis K21.9 Esophagitis presence: without esophagitis Crohn's disease K50.019 Digestive disease complication type: unspecified complication Gastrointestinal tract location: small intestine Time Spent (min) 15
== END 2025-09-05 08:34 | disposition home or self-care (01) ==
LOC: HO.HGI 08:12
PROVIDERS: PCP Internal Medicine; Visit Provider Internal Medicine Gastroenterology
DX: K21.9 Gastro-esophageal reflux disease without esophagitis (principal); K50.019 Crohn's disease of small intestine with unspecified complications
CPT/HCPCS: 99213

== ENCOUNTER 2025-09-09 11:19 | Outpatient (AMB) | payer OTHER, SELFPAY ==
[2025-09-09 11:21] VITALS: BP 112/70; PULSE 81; RESP 16; TEMP 36.8; O2SAT 96; BMI 31.9
--- NOTE | 2025-09-09 11:21 | A.OFFPC_ITS ---
Vital Signs 09/09/25 11:21 Height 5 ft 4 in Weight 186 lb BMI 31.9 BP 112/70 Blood Pressure Location Rt brachial Position Sitting Respiration 16 Pulse 81 Pulse Source Pulse Oximeter Temp 98.2 F Temp Source Oral Pulse Oximetry (%) 96 Oxygen Delivery Method Room Air Intake Visit Reasons: 5 months f/up Intake Note: Pt is here today for her 5mo. f/u Pie Filler Required: No Allergies No Known Allergies (No Known Allergies*) Allergy (Verified 09/09/25 11:37) Medication List - Last Reconciled 09/09/25 by Yuli Garner MD betamethasone dipropionate 0.05% topical calcium carbonate 600 mg PO BID cholecalciferol (vitamin D3) 250 mcg PO MOFR@0900 90 days ferrous sulfate 325 mg PO DAILY hydroxyzine HCl 10 mg PO BEDTIME PRN levothyroxine 88 mcg PO QAM pantoprazole 40 mg PO DAILY Tobacco use date assessed: 09/09/25 Dental Screening Dental Screen Date: 09/09/25 Did you have a dental visit in the last 12 months?: Yes Did you have a dental problem in the last 6 months where you did not have access to dental care?: No Was dental information given to patient?: Patient has dentist [facility] Medical History (Updated 05/23/25 @ 10:22 by Yuli Garner MD) Insomnia Mixed dyslipidemia Partial small bowel obstruction History of small bowel obstruction Dyslipidemia Impaired fasting glucose History of COVID-19 GERD (gastroesophageal reflux disease) Morbid obesity Hyperparathyroidism Overactive bladder Upper back pain, chronic Large breasts Vitamin D deficiency Osteoporosis Postmenopause History of shingles Acquired hypothyroidism RLS (restless legs syndrome) Surgical History Hx of sigmoidoscopy Hx of reduction mammoplasty History of bowel resection History of esophagogastroduodenoscopy Hx of colonoscopy Hx of cholecystectomy Hx of tonsillectomy History of appendectomy H/O partial resection of colon Family History Father Lung cancer Mother Diabetes Hypertension Sister No problems noted. Mother Diabetes Paternal Grandmother Diabetes Father Lung cancer Paternal Uncle Lung cancer Social History Household Members: Family Housing: Apartment Are you a primary child care worker to a significant other at home: No Do you presently have visiting nurse or other home services: No Alcohol intake: never Patient Tobacco Use Status: Never used Tobacco e-Cigarette/Vaping Use: Never Used Second Hand Smoke Exposure: No Advance Directives Date on File: 05/31/22 service: No Current occupational status: unemployed and disabled Current occupation: [employer] Cognitive needs: No Hearing needs: No Vision needs: Yes Female Reproductive History Menstrual Age of Menarche: 12 Questionnaire Thrive Questionnaire Date Thrive assessed: 09/09/25 I am a: Patient What is your living situation today?: I have a steady place to live Within the past 12 months, did the food you bought not last and you didn't have the money to get more?: Never true Within the past 12 months, did you worry whether your food would run out before you got money to buy more?: Never true Do you have trouble paying for medicines?: No Do you have trouble getting transportation to medical appointments?: No Do you have trouble paying your heating and electricity bill?: No Do you have trouble taking care of your child, family member or friend?: No Do you have trouble with day-to-day activities such as bathing, preparing meals, shopping, managing finances, etc.?: No Are you currently unemployed and looking for a job?: No Are you interested in more education?: No THRIVE Score: 0 AUDIT C Alcohol Use Questionnaire (AUDIT-C) 1. How often do you have a drink containing alcohol?: Never 3. How often do you have six or more drinks on one occasion?: Never Total Score: 0 Score Reviewed/Action Taken: Yes NICOLE-7 AMB Questionnaire NICOLE-7 Date NICOLE - 7 assessed: 04/08/25 Feeling nervous, anxious, or on edge: 0 = Not at all Not being able to stop or control worryin = Not at all Worrying too much about different things: 0 = Not at all Trouble relaxin = Not at all Being so restless that it is hard to sit still: 0 = Not at all Becoming easily annoyed or irritable: 0 = Not at all Feeling afraid as if something awful might happen: 0 = Not at all Total NICOLE-7 score (0-4 normal; 5-9 mild; 10-14 moderate; 15-21 severe): 0 Source: Developed by Drs. Brendon Muñoz, Kasey Becker, Raul Sweet and colleagues, with an educational bakari from [employer]. Physical exam (Primary Care) Vital Signs: Last Vital Signs Temp 98.2 F 09/09/25 11:21 Pulse 81 09/09/25 11:21 Resp 16 09/09/25 11:21 BP 112/70 09/09/25 11:21 Pulse Ox 96 09/09/25 11:21 Oxygen Delivery Method Room Air 09/09/25 11:21 BMI result Body Mass Index 31.9 Tobacco/Smoking Status: Tobacco use Status Tobacco use date assessed 09/09/25 09/09/25 11:27 Patient Tobacco Use Status Never used Tobacco 09/09/25 11:23 e-Cigarette/Vaping Use Never Used 09/09/25 11:23 Thrive Assessment: Date of Thrive Assessment Date Thrive assessed 09/09/25 09/09/25 11:27 Office Procedures Flu Questionnaire Does the patient have a severe egg allergy?: No Does the patient have severe life threatening allergies?: No Does the patient have a fever or illness today?: No Has the patient ever had Guillain-Dale Syndrome?: No Has the patient ever had any past reaction to a flu shot?: No Immunizations Fluarix [id number] (PF) 45 mcg (15 mcg x 3)/0.5 mL IM syringe Performing Provider: Yuli Garner MD Performing Location[place] [facility] [place] [facility] Administered by: Ashwini Sutton MA on 09/10/25 08:03 Dose Route Admin Location Dispensed Lot Number Expiration Date [facility] [employer] 0.5 mL IM Right Deltoid 0.5 mL [id number] 03/17/26 [id number] [employer] VIS Given Date VIS Provided VIS Publication Date 09/09/25 Single Vaccine 24 Eligibility Eligibility Date Funding Source Not [facility] Eligible 09/09/25 Private Coding Level of Care Code Est Pt Level 4 (63990) Assessment & Plan Assessment & Plan Orders: Orders Influenza [id number] Immunization 09/09/25 Z23 - Encounter for immunization
== END 2025-09-09 11:58 | disposition home or self-care (01) ==
LOC: HO.HMCC 11:20
PROVIDERS: PCP Internal Medicine; Visit Provider Internal Medicine
DX: Z23 Encounter for immunization (principal)

== ENCOUNTER 2025-09-12 08:30 | Outpatient (REF) | payer OTHER, SELFPAY ==
[2025-09-12 09:28] LABS: Cholesterol 248 mg/dL (<200); HDL Cholesterol 56 mg/dL (>40); Triglycerides 229 mg/dL (<150)
[2025-09-12 09:42] LABS: Free T4 (Free Thyroxine) 1.19 ng/dL (0.71-1.85); Thyroid Stimulating Hormone 1.77 uIU/mL (0.32-4.0)
== END 2025-09-12 08:31 | disposition home or self-care (01) ==
LOC: HO.LAB 08:30
PROVIDERS: PCP Internal Medicine; Visit Provider Internal Medicine
DX: Z00.00 Encounter for general adult medical examination without abnormal findings (principal); E78.5 Hyperlipidemia, unspecified; E03.9 Hypothyroidism, unspecified; M81.0 Age-related osteoporosis without current pathological fracture; R73.01 Impaired fasting glucose; K21.9 Gastro-esophageal reflux disease without esophagitis; K50.019 Crohn's disease of small intestine with unspecified complications; N32.81 Overactive bladder; E66.01 Morbid (severe) obesity due to excess calories
CPT/HCPCS: 36415; 80061; 82947; 84439; 84443

== ENCOUNTER 2025-09-15 08:17 | Outpatient (REF) | payer OTHER, SELFPAY ==
[2025-09-15 10:59] LABS: Albumin Level 4.2 g/dL (3.5-5.0); Anion Gap 15 (12-20); Blood Urea Nitrogen 14 mg/dL (9-16); Calcium 9.6 mg/dL (8.4-10.2); Carbon Dioxide 22 mmol/L (22-29); Chloride 110 mmol/L (96-108); Estimated Glomerular Filt Rate 52; Potassium 4.3 mmol/L (3.3-5.1); Sodium 143 mmol/L (135-145)
== END 2025-09-15 08:18 ==
LOC: HO.HMGCLDS 08:17
PROVIDERS: PCP Internal Medicine; Visit Provider Internal Medicine Endocrinology, Diabetes & Metabolism
DX: M81.0 Age-related osteoporosis without current pathological fracture (principal)
CPT/HCPCS: 36415; 80048; 82040